=== PATIENT | female | born 1935 | race Caucasian/White ===

== ENCOUNTER 2021-07-30 09:37 | Day surgery (SDC) | payer OTHER ==
--- NOTE | 2021-07-25 09:52 | RAD REPORT ---
EXAM DESCRIPTION: Cat Pa And Lat (2 Views)07/25/2021 9:18 am CLINICAL HISTORY: Preop COMPARISON: 2016 FINDINGS: 13 millimeter opacity overlies the lateral right lung base. Left lung appears clear. The heart is mildly enlarged IMPRESSION: 13 millimeter opacity overlies lateral right lung base. This may represent a pulmonary n odule, infiltrate or confluence of ribs and vessels. Either follow-up chest series or CT chest recomm ended for further evaluation
[2021-07-25 10:16] LABS: Absolute Lymphocytes (CBC) 3.2 K/uL (0.7-4.9); Basophils % 0.6 % (0-1.3); Hematocrit 35.7 % (36.0-45.0); Lymphocytes % 28.2 % (15.3-44.8); MPV 9.7 fL (7.6-11.3); RBC Red Blood Cell Count 3.95 M/uL (3.86-4.86)
[2021-07-25 10:35] LABS: Potassium 4.4 mmol/L (3.5-5.1)
[2021-07-30] MEDS ORDERED: CIPROFLOXACIN 400mg IV 400 MG/200 ML BAG IV ONE (09:55)
[2021-07-30] MEDS ORDERED: Ringers Lactate 1,000 ML IV ONE (09:55)
[2021-07-30] MEDS ORDERED: FENTANYL CITR 100 MCG/2 ML ONE (11:42)
[2021-07-30] MEDS ORDERED: LIDOCAINE 2% MPF 5 ML VIAL ONE (11:42)
[2021-07-30] MEDS ORDERED: propofoL 200 MG/20 ML VIAL IV ONE ×2 (11:42→12:52)
[2021-07-30] MEDS ORDERED: BUPIVACAINE 0.5% Inj,MDV 50 mL VIAL ONE (12:34)
[2021-07-30] MEDS ORDERED: ONDANSETRON 4 MG/2 ML VIAL ONE (13:04)
[2021-07-30] MEDS ORDERED: NS 0.9% VIAL 10 ML ONE (13:08)
[2021-07-30] MEDS ORDERED: EPHEDRINE SULF 50 MG/ML VIAL ONE (13:08)
[2021-07-30] MEDS ORDERED: KETOROLAC 30 MG/ML INJ ONE (13:09)
[2021-07-30 17:38] VITALS: BP 119/55; TEMP 97.4; O2SAT 95
--- NOTE | 2021-07-30 19:48 | OP ---
Date of Procedure: 07/30/2021 Surgeon: Rigoberto Cabrera MD Traffic Officer: Kvng Hurt, surgical scrub tech. Preoperative Diagnosis: Right leg mass, rule out skin cancer. Postoperative Diagnosis: Right leg mass, rule out skin cancer. Procedure: Wide excision of right leg mass 5 x 2 cm with layered closure. Estimated Blood Loss: Minimal. Specimen: Right leg mass. 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 No evidence of ma lignancy. Anesthesia: General. Complications: None. Disposition: The patient tolerated the procedure well, in stable condition, and taken to Recovery in good general condition. Procedure In Detail: The patient was brought to the OR and placed in supine position. General anest hesia begun. The patient was prepped and draped in the usual sterile fashion. Marcaine 0.5% was inf iltrated locally. A 15-blade was used to make a 5 x 2 cm incision to excise this 1.5 cm raised mass in the right lower leg above the ankle anteriorly. The patient was symptomatic from this. It is cau sing her pain. Therefore, the entire mass was excised and labeled appropriately, sent for frozen sec tion, which revealed it to be actinic keratosis, solar elastosis with no evidence of malignancy. The refore, the wound was closed and this was done by creating flaps first with sharp and blunt dissectio n. Then, 2-0 chromic was used to approximate subcutaneous tissue and 4-0 nylon used to close skin. Sterile dressing was applied. Patient was awakened and taken to Recovery in good general condition. Discharge Note: The patient will go to Day Surgery and home when stable. Disposition: Home. Condition: Stable. Discharge Instructions: Resume home medications and diet. Activity as tolerated. No heavy lifting. Keep the dressing clean, dry, sponge bathe only. Follow up in my office in 1 week. Call for appoi ntment. /MODL Voice ID: [id number] Report ID: [id number]
== END 2021-07-30 14:50 | disposition home or self-care (01) ==
LOC: OR 09:37
PROVIDERS: ATTEND Surgery
PROC: 0JBN0ZZ Excision of Right Lower Leg Subcutaneous Tissue and Fascia, Open Approach (ICD-10-PCS; principal; 2021-07-30 11:15)
DX: L57.0 Actinic keratosis (principal); Z20.822 Contact with and (suspected) exposure to COVID-19
CPT/HCPCS: 85025; 80048; 36415; 88331; 88332; 88305; 71046; 11406; U0002; J2704 ×2; J3010; J7120; J2405; J0744

== ENCOUNTER 2021-08-10 09:54 | Inpatient (IN) | payer OTHER ==
[2021-08-10] MEDS ORDERED: NA CHLORIDE 0.9% 1,000 ML ONE ×2 (10:41→12:33)
[2021-08-10 11:20] LABS: Absolute Lymphocytes (CBC) 0.8 K/uL (0.7-4.9); Hematocrit 34.9 % (36.0-45.0); MPV 9.1 fL (7.6-11.3); RBC Red Blood Cell Count 3.85 M/uL (3.86-4.86)
[2021-08-10 11:28] LABS: Protime INR 1.01
[2021-08-10 11:46] LABS: Blood Morphology Comment NOT SEEN (NOT SEEN); Platelet Estimate ADEQ; Platelets, Giant PRESENT
[2021-08-10 11:52] LABS: ALT/SGPT 60 U/L (12-78); Albumin 3.2 g/dL (3.4-5.0); Alkaline Phosphatase 128 U/L (45-117); Amylase 105 U/L (25-115); BUN Blood Urea Nitrogen 36 mg/dL (7-18); Bicarbonate 22 mmol/L (21-32); Bilirubin Direct < 0.1 mg/dL (0-0.2); Bilirubin Total 0.3 mg/dL (0.2-1.0); C-Reactive Protein 6.06 mg/L (<3.00); Glucose Level 126 mg/dL (74-106); Lipase 190 U/L (73-393); Protein, Total 8.3 g/dL (6.4-8.2); Sodium Level 129 mmol/L (136-145); Troponin (Emerg Dept Use Only) < 0.02 ng/mL (0.0-0.045)
[2021-08-10 11:57] LABS: AST/SGOT 87 U/L (15-37); Potassium 4.7 mmol/L (3.5-5.1)
[2021-08-10 11:59] LABS: CKMB Creatine Kinase MB 50.6 ng/mL (1.0-3.6)
[2021-08-10 12:05] LABS: Creatine Phosphokinase 2919 U/L (26-192)
--- NOTE | 2021-08-10 12:18 | RAD REPORT ---
EXAM DESCRIPTION: CT - CTHCSPWOC - 08/10/2021 12:08 pm CLINICAL HISTORY: Trauma, head and neck injury. PAIN COMPARISON: Stone Protocol dated 08/05/2021; Abdomen Pelvis W Contrast dated 02/10/2020CT HEAD CSPI NE MPR WO CONTRAST dated 10/04/2011 TECHNIQUE: Axial 5 mm thick images of the head were obtained. Axial 2 mm thick images of the cervical spine were obtained with sagittal and coronal reconstruction images generated and reviewed. All CT scans are performed using dose optimization technique as appropriate and may include automated exposure control or mA/KV adjustment according to patient size. FINDINGS: CT HEAD WITHOUT CONTRAST: No acute hemorrhage, hydrocephalus or extra-axial collection is identified.No areas of brain edema or midline shift. Chronic small vessel ischemic changes. The paranasal sinuses and mastoids are clear.The calvarium is intact. CT CERVICAL SPINE WITHOUT CONTRAST: No fracture or subluxation.No prevertebral soft tissues swelling is identified. Multilevel cervical s pondylosis with evidence of neural foraminal narrowing including at C3-4 where it is advanced on the left. It is also advanced on the right side at C5-6 and C6-7. IMPRESSION: No acute intracranial or cervical spine findings.
--- NOTE | 2021-08-10 12:22 | RAD REPORT ---
EXAM DESCRIPTION: RAD - Chest Single View - 08/10/2021 12:16 pm CLINICAL HISTORY: CONGESTION COMPARISON: Chest Pa And Lat (2 Views) dated 07/25/2021; Chest Pa And Lat (2 Views) dated 03/05/2016; CHEST SINGLE VIEW dated 11/09/2013; CHEST PA AND LAT 2 VIEW dated 06/26/2012 FINDINGS: Lines: None. Lungs: No evidence of edema or pneumonia. Pleural: No significant pleural effusions or pneumothorax. Cardiac: Cardiomegaly. Bones: No acute fractures. Other: IMPRESSION: No acute cardiopulmonary disease.
[2021-08-10] MEDS ORDERED: WATER FOR INJ,STERILE 10 ML ONE (12:33)
[2021-08-10] MEDS ORDERED: CEFTRIAXONE 1000 MG/VIAL ONE (12:33)
--- NOTE | 2021-08-10 13:13 | EDPHYS ---
Physician Documentation [facility] Name: Larissa Wharton Age: 85 yrs Sex: Female : 1935 Arrival Date: 08/10/2021 Time: 09:54 Bed 15 Private MD: Jeremy Frost V ED Physician Jennifer Contreras HPI: 08/10 10:50 This 85 yrs old Female presents to ER via EMS with complaints of General Weakness. ma2 10:50 Onset: The symptoms/episode began/occurred gradually, 1 day(s) ago. Severity of ma2 symptoms: At their worst the symptoms were mild in the emergency department the symptoms are unchanged. The patient has experienced a previous episode. Historical: - Allergies: 10:00 Phenytoin; tw2 10:00 Cephalexin; tw2 10:00 Latex, Natural Rubber; tw2 - Immunization history:: Client reports receiving the 2nd dose of the Covid vaccine. - Social history:: Smoking status: Patient denies any tobacco usage or history of. Patient/guardian denies using alcohol, street drugs, The patient lives with family. - Family history:: not pertinent. ROS: 10:50 Constitutional: Negative for fever, chills, and weight loss. ma2 10:50 All other systems are negative. Exam: 10:50 Constitutional: This is a well developed, well nourished patient who is awake, alert, ma2 and in no acute distress. Head/Face: Normocephalic, atraumatic. Eyes: Pupils equal round and reactive to light, extra-ocular motions intact. Lids and lashes normal. Conjunctiva and sclera are non-icteric and not injected. Cornea within normal limits. Periorbital areas with no swelling, redness, or edema. ENT: Nares patent. No nasal discharge, no septal abnormalities noted. Tympanic membranes are normal and external auditory canals are clear. Oropharynx with no redness, swelling, or masses, exudates, or evidence of obstruction, uvula midline. Mucous membranes moist. Neck: Trachea midline, no thyromegaly or masses palpated, and no cervical lymphadenopathy. Supple, full range of motion without nuchal rigidity, or vertebral point tenderness. No Meningismus. Chest/axilla: Normal chest wall appearance and motion. Nontender with no deformity. No lesions are appreciated. Cardiovascular: Regular rate and rhythm with a normal S1 and S2. No gallops, murmurs, or rubs. Normal PMI, no JVD. No pulse deficits. Respiratory: Lungs have equal breath sounds bilaterally, clear to auscultation and percussion. No rales, rhonchi or wheezes noted. No increased work of breathing, no retractions or nasal flaring. Abdomen/GI: Soft, non-tender, with normal bowel sounds. No distension or tympany. No guarding or rebound. No evidence of tenderness throughout. Skin: Warm, dry with normal turgor. Normal color with no rashes, no lesions, and no evidence of cellulitis. MS/ Extremity: Pulses equal, no cyanosis. Neurovascular intact. Full, normal range of motion. Neuro: Awake and alert, GCS 15, oriented to person, place, time, and situation. Cranial nerves II-XII grossly intact. Motor strength 5/5 in all extremities. Sensory grossly intact. Cerebellar exam normal. Normal gait. Vital Signs: 09:52 BP 131 / 66; Pulse 77; Resp 18; Pulse Ox 99% on R/A; tw2 10:02 Temp 98.1; ss 11:35 BP 138 / 75; Pulse 71; Resp 15; Pulse Ox 97% on R/A; tw2 12:57 BP 143 / 85; Pulse 81; Resp 16; Temp 98.6(O); Pulse Ox 99% on R/A; tw2 15:41 BP 159 / 75; Pulse 82; Resp 18; Pulse Ox 100% on R/A; tw2 MDM: 10:50 Differential Diagnosis Generalized weakness, differential diagnosis includes pneumonia, ma2 diarrhea, dehydration, hypokalemia.. 12:26 Patient medically screened. ma2 13:11 Data reviewed: vital signs, nurses notes, EMS record. Counseling: I had a detailed ma2 discussion with the patient and/or guardian regarding: the historical points, exam findings, and any diagnostic results supporting the discharge/admit diagnosis, the presence of at least one elevated blood pressure reading (>120/80) during this emergency department visit, the need for outpatient follow up. Counseling: I had a detailed discussion with the patient and/or guardian regarding: the need for further work-up and treatment in the hospital. Response to treatment: the patient's symptoms have markedly improved after treatment. 12/24 10:25 Order name: Amylase, Serum; Complete Time: 12:12 [facility] 08/10 10:25 Order name: Basic Metabolic Panel; Complete Time: 12:12 [facility] 08/10 10:25 Order name: Blood Culture Adult (2) [facility] 08/10 10:25 Order name: C-Reactive Protein; Complete Time: 12:12 [facility] 08/10 10:25 Order name: CBC with Diff; Complete Time: 12:12 [facility] 08/10 10:25 Order name: CPK; Complete Time: 12:12 [facility] 08/10 10:25 Order name: Ckmb; Complete Time: 12:12 [facility] 08/10 10:25 Order name: LFT's; Complete Time: 12:12 [facility] 08/10 10:25 Order name: Lactate; Complete Time: 12:12 [facility] 08/10 10:25 Order name: Lipase; Complete Time: 12:12 [facility] 08/10 10:25 Order name: Procalcitonin; Complete Time: 12:12 [facility] 08/10 10:25 Order name: Protime (+inr); Complete Time: 11:41 [facility] 08/10 10:25 Order name: Ptt, Activated; Complete Time: 11:41 [facility] 08/10 10:25 Order name: Troponin (emerg Dept Use Only); Complete Time: 12:12 [facility] 08/10 10:25 Order name: Urine Microscopic Only [facility] 08/10 10:25 Order name: CT Head C Spine; Complete Time: 12:26 [facility] 08/10 11:46 Order name: Manual Differential; Complete Time: 12:12 [facility] 08/10 12:09 Order name: Chest Single View XRAY; Complete Time: 12:26 [facility] 08/10 14:05 Order name: SARS-COV-2 RT PCR (Document "Date of Onset" if Symptomatic) eb 08/10 14:05 Order name: SARS-COV-2 RT PCR [facility] 08/10 15:10 Order name: Fecal Leukocyte Stain [facility] 08/10 15:10 Order name: Ova and Parasites [facility] 08/10 15:10 Order name: Stool Culture [facility] 08/10 15:11 Order name: Lactoferrin, Stool [facility] 08/10 15:11 Order name: C.difficile GDH Ag [facility] 08/10 10:25 Order name: Cardiac monitoring; Complete Time: 11: dc2 08/10 10:25 Order name: EKG - Nurse/Tech; Complete Time: dc2 08/10 10:25 Order name: IV Saline Lock - Large Bore; Complete Time: dc2 08/10 10:25 Order name: Labs collected and sent; Complete Time: : [facility] 08/10 10:25 Order name: O2 Per Protocol; Complete Time: [facility] 08/10 10:25 Order name: O2 Sat Monitoring; Complete Time: : ma2 Administered Medications: 11:34 Drug: NS 0.9% 1000 ml Route: IV; Rate: 1 bolus; Site: left antecubital; tw2 12:48 Drug: NS 0.9% 1000 ml Route: IV; Rate: 125 ml/hr; Site: left antecubital; tw2 12:48 Drug: Rocephin (cefTRIAXone) 1 grams Route: IV; Rate: calculated rate; Site: left tw2 antecubital; Disposition Summary: 08/10/21 13:12 Hospitalization Ordered Hospitalization Status: Observation dc2 Provider: Richie Ag [facility] Location: Telemetry/MedSurg (observation) ma2 Condition: Stable ma Problem: new [facility] Symptoms: are unchanged [facility] Bed/Room Type: Standard [facility] Room Assignment: [facility](08/10/21 15:26) eb Diagnosis - Dehydration ma2 - Other acute kidney failure [facility] Forms: - Medication Reconciliation Form dc2 - SBAR form dc2 Signatures: Dispatcher [employer] EDWY Magalys Rodriguez RN RN Loreta Perez RN RN 2 Jennifer Contreras MD MD [facility] Sia Moreland Corrections: (The following items were deleted from the chart) 11: 10:25 Accucheck ordered. [facility] tw2 12:07 10:26 Chest For PE Angio+CT.RAD.BRZ ordered. EDWY EDMS 15:26 13:12 [facility] eb
--- NOTE | 2021-08-10 13:13 | ER ---
Nurse's Notes [facility] Name: Larissa Wharton Age: 85 yrs Sex: Female : 1935 Arrival Date: 08/10/2021 Time: 09:54 Bed 15 Private MD: Jeremy Frost V Diagnosis: Dehydration;Other acute kidney failure Presentation: 08/10 10:02 Chief complaint: Patient states: Generalized weakness and episode of diarrhea this ss morning. Pt reports feeling better after given 100 mL NS en route to ED. Coronavirus screen: Client denies travel out of the [place] in the last 14 days. Ebola Screen: Patient denies exposure to infectious person. Patient denies travel to an Ebola-affected area in the 21 days before illness onset. Initial Sepsis Screen: Does the patient meet any 2 criteria? No. Patient's initial sepsis screen is negative. Does the patient have a suspected source of infection? No. Patient's initial sepsis screen is negative. Risk Assessment: Do you want to hurt yourself or someone else? Patient reports no desire to harm self or others. Onset of symptoms was August 10, 2021. Care prior to arrival: IV initiated. 22 GA, in the right antecubital area, Glucose check: 181. 10:02 Method Of Arrival: EMS: [facility] ss 10:02 Acuity: SHELDON 3 ss Historical: - Allergies: 10:00 Phenytoin; tw2 10:00 Cephalexin; tw2 10:00 Latex, Natural Rubber; tw2 - Immunization history:: Client reports receiving the 2nd dose of the Covid vaccine. - Social history:: Smoking status: Patient denies any tobacco usage or history of. Patient/guardian denies using alcohol, street drugs, The patient lives with family. - Family history:: not pertinent. Screenin:58 Abuse screen: Denies threats or abuse. Nutritional screening: No deficits noted. tw2 Tuberculosis screening: No symptoms or risk factors identified. Fall Risk Secondary diagnosis (15 points) impaired mobility. Assessment: 11:34 Reassessment: pt appears to be sleeping at this time. NAD. daughter at bedside at this tw2 time. pt daughter asking to let pt rest at this time. iv fluids started without pt awaking. 16:18 Reassessment: pt cleaned of soiled brief at this time. tw2 Vital Signs: 09:52 BP 131 / 66; Pulse 77; Resp 18; Pulse Ox 99% on R/A; tw2 10:02 Temp 98.1; ss 11:35 BP 138 / 75; Pulse 71; Resp 15; Pulse Ox 97% on R/A; tw2 12:57 BP 143 / 85; Pulse 81; Resp 16; Temp 98.6(O); Pulse Ox 99% on R/A; tw2 15:41 BP 159 / 75; Pulse 82; Resp 18; Pulse Ox 100% on R/A; tw2 ED Course: 09:54 Patient arrived in ED. ds1 09:54 Jeremy Frost MD is Private Physician. ds1 09:58 Loreta Perez, TITO is Primary Nurse. tw2 09:59 Arm band placed on. tw2 09:59 Bed in low position. Call light in reach. Side rails up X2. Adult w/ patient. Pulse ox tw2 on. NIBP on. 10:05 Triage completed. ss 10:07 Jennifer Contreras MD is Attending Physician. ma2 11:03 First set of blood cultures drawn by me. Inserted saline lock: 20 gauge in left 3 antecubital area, using aseptic technique. Blood collected. 11:07 Initial lab(s) drawn, by me, sent to lab. Second set of blood cultures drawn by me. 3 11:20 EKG done, by ED staff, reviewed by Jennifer Contreras MD. 3 12:08 CT Head C Spine In Process Unspecified. EDMS 12:14 Chest Single View XRAY In Process Unspecified. EDMS 13:12 Richie Ag MD is Hospitalizing Provider. ma2 15:40 Patient admitted, IV remains in place. 22 g RIGHT AC was removed accidently when pt was tw2 turning to be cleaned. 20 G LEFT ac remains in place for admission. 15:44 No provider procedures requiring assistance completed. tw2 Administered Medications: 11:34 Drug: NS 0.9% 1000 ml Route: IV; Rate: 1 bolus; Site: left antecubital; tw2 12:48 Drug: NS 0.9% 1000 ml Route: IV; Rate: 125 ml/hr; Site: left antecubital; tw2 12:48 Drug: Rocephin (cefTRIAXone) 1 grams Route: IV; Rate: calculated rate; Site: left tw2 antecubital; Outcome: 13:12 Decision to Hospitalize by Provider. ma2 15:47 Admitted to Med/surg accompanied by tech, via stretcher, room 207, with chart, Report tw2 called to TITO Dias 15:47 Condition: stable 15:47 Instructed on the need for admit. 16:47 Patient left the ED. tw2 Signatures: Dispatcher [employer] EDRI Marry Olivares ds1 Magalys Rodriguez RN RN Loreta Perez RN RN tw2 Delaney Garcia 3 Jennifer Contreras MD MD me2
--- NOTE | 2021-08-10 15:16 | P.HP ---
Certification for Inpatient Patient admitted to: Observation With expected LOS: <2 Midnights Practitioner: I am a practitioner with admitting privileges, knowledge of patient current condition, hospital course, and medical plan of care. Services: Services provided to patient in accordance with Admission requirements found in Title 42 Section 412.3 of the Code of Federal Regulations Patient History Date of Service: 08/10/21 Reason for admission: Generalized weakness, diarrhea, AKA History of Present Illness: 85-year-old F PMH: HTN, bladder urgency, and some syncopal/weakness episodes on methyldopa Patient was brought into the ED after found to be significantly weak, slurred speech, soiled herself last night/this morning. She does not recall all the events, but she awoke in her recliner, feeling very stiff and unable to move her extremities and neck. She needed significant assistance to get out of the chair. Her daughter found her with loose stool in her clothes as well. Daughter states patient has been having worsening of generalized weakness since she had a right leg lesion excision on 07/30. Your blood patient initially had some constipation, and then has been dealing with loose stools since the procedure. They deny any significant amount of watery diarrhea, just loose and difficult to control at times, maybe once/twice a day. She has maintained the same amount of food intake, but the daughter has been concerned of adequate p.o. intake. She was also recently started on spironolactone approximately 1 week ago for lower extremity edema. Since starting spironolactone, patient reports increased urinary frequency. Denies dysuria, denies foul-smelling urine, denies any change in color/transparency of her urine. Denies abdominal pain, no nausea/vomiting, no fever/chills at home. She is otherwise not missed any of her medications. In the ED, she was felt to be dehydrated, noted to have a leukocytosis, YULI, negative CT brain and chest x-ray. Allergies latex [Latex] Allergy (Intermediate, Verified 11/10/13 01:26) Hives/Rash cephalexin [From Keflex] Adverse Reaction (Intermediate, Verified 07/25/21 10:52) AGITATION phenytoin [From Dilantin] Adverse Reaction (Intermediate, Verified 07/25/21 10:52) AGITATION Home Medications: Aspirin Chewable [Aspirin Chewable*] 1 tab PO DAILY 11/10/13 Biotin 1 cap PO DAILY 11/10/13 Calcium Carb/Vitamin D3/Vit K1 [Calcium + D Soft Chewable Tab] 1 tab PO DAILY 11/10/13 Sandstone-3 Acid Ethyl Esters [Lovaza] 1 cap PO DAILY 11/10/13 Oxybutynin Chloride [Ditropan*] 1 tab PO BID 11/10/13 PHENobarbitaL [Phenobarbital*] 1 tab PO DAILY 11/10/13 Vit C/E/Zn/Coppr/Lutein/Zeaxan [Preservision Areds 2 Softgel] 2 cap PO BID 11/10/13 Methyldopa [Aldomet*] 250 mg PO BID #60 tab 11/11/13 Amlodipine [Norvasc] 5 mg PO BEDTIME 07/25/21 Azilsartan Medoxomil [Edarbi] 80 mg PO DAILY 07/25/21 Spironolactone [Aldactone*] 25 mg PO DAILY 07/25/21 - Past Medical/Surgical History Diabetic: No -: HTN -: Bladder urgency -: Right knee SX -: Latia -: Breast Reduction -: foot sx -: wrist sx - Family History Family History: Reviewed- Non-Contributory - Social History Smoking Status: Never smoker Alcohol use: No CD- Drugs: No Caffeine use: Yes Place of Residence: Home Review of Systems 10-point ROS is otherwise unremarkable Physical Examination - Physical Exam General: Alert, Oriented x3, Other (Appears fatigued) HEENT: Sclerae nonicteric Neck: No LAD Respiratory: Clear to auscultation bilaterally, Normal air movement Cardiovascular: Regular rate/rhythm, Edema (Trace RLE edema), Systolic murmur Gastrointestinal: Soft and benign, Non-distended, No tenderness Musculoskeletal: No swelling, No contractures Integumentary: Erythema (Minimal RLE excision site, no added warmth, no increased tenderness) Neurological: Normal speech, Normal strength at 5/5 x4 extr, Cranial nerves 3-12 intact, Normal affect - Studies Laboratory Data (last 24 hrs) 08/10/21 11:07: PT 11.6, INR 1.01, APTT 42.4 H 08/10/21 11:07: WBC 15.30 H, Hgb 11.4 L, Hct 34.9 L, Plt Count 296 08/10/21 11:07: Sodium 129 L, Potassium 4.7, BUN 36 H, Creatinine 1.83 H, Glucose 126 H, Total Bilirubin 0.3, AST 87 H, ALT 60, Alkaline Phosphatase 128 H, Amylase 105, Lipase 190 Assessment and Plan - Advance Directives Does patient have a Living Will: Yes Does patient have a Durable POA for Healthcare: Yes Physician Review Additional Text: Problem YULI, no history of CKD Generalized weakness Diarrhea Elevated CPK Leukocytosis Patient appears dry on exam, received IV fluids in the ED, continue IV fluids, diet as tolerated Patient does not appear septic, leukocytosis likely reactive versus diarrhea Has not received any consistent antibiotics recently, did receive 1 dose of ciprofloxacin 2 weeks ago for her procedure, and since then her bowel habits bernard ve been different Low suspicion for c diff - not having multiple / watery diarrhea Stool studies ordered Blood cultures obtained Patient reports feeling better, more alert and more strength after receiving IV fluids Abdomen soft and nontender, if abdominal exam changes or patient clinically worsens will consider CT scan Procalcitonin negative YULI likely prerenal from dehydration. Decreased p.o. water intake, loose stool, and recent initiation of diuretic usage Hold home spironolactone PT consulted VTE: lovenox Code: DNR Dispo: Anticipate DC home in 1-2 days Time Spent Managing Pts Care (In Minutes): 60
[2021-08-10] MEDS ORDERED: ACETAMINOPHEN 500 MG TAB PO PRN (15:52)
[2021-08-10 17:20] VITALS: BMI 31.0
[2021-08-10] MEDS: NA CHLORIDE 0.9% 1,000 ML IV SCH (17:56)
[2021-08-10 21:27] LABS: Thyroid Stimulating Hormone 2.17 uIU/mL (0.360-3.740)
[2021-08-11] MEDS: NA CHLORIDE 0.9% 1,000 ML IV SCH ×3 (03:19→22:00)
[2021-08-11 05:56] LABS: Absolute Lymphocytes (CBC) 1.8 K/uL (0.7-4.9); Hematocrit 32.5 % (36.0-45.0); MPV 9.3 fL (7.6-11.3)
[2021-08-11 06:28] LABS: Albumin 2.6 g/dL (3.4-5.0); Bilirubin Total 0.4 mg/dL (0.2-1.0); Magnesium 2.1 mg/dL (1.8-2.4); Protein, Total 6.8 g/dL (6.4-8.2)
[2021-08-11] MEDS ORDERED: METHYLDOPA 250 MG TABLET PO SCH (09:00)
[2021-08-11] MEDS ORDERED: PHENOBARBITAL 32.4 MG TABLET PO SCH (09:00)
[2021-08-11] MEDS: AZILSARTAN MEDOXOMIL 80 MG PO SCH ×2 (09:00→21:00)
[2021-08-11] MEDS: OXYBUTYNIN CHLORIDE 5 MG TAB PO SCH ×2 (09:16→21:45)
[2021-08-11] MEDS: ASPIRIN 81 MG CHEWABLE TABLET PO SCH (09:17)
[2021-08-11] MEDS: ENOXAPARIN 30 MG/0.3 ML SQ SCH (09:22)
--- NOTE | 2021-08-11 10:56 | P.PN ---
Subjective Date of Service: 08/11/21 Chief Complaint: Diarrhea Subjective: Improving Patient is 85 years of age admitted with some weakness he currently has diarrhea very alert responsive had a minor surgery recently patient was also started with spironolactone about a week ago Review of Systems General: Weakness Gastrointestinal: Diarrhea Physical Examination - Vital Signs Temperature: 97.9 F Blood Pressure: 147/70 Pulse: 84 Respirations: 18 Pulse Ox (%): 95 - Physical Exam General: Alert, Oriented x3 Neck: Supple Respiratory: Clear to auscultation bilaterally Cardiovascular: No edema, Normal pulses - Studies Laboratory Data (last 24 hrs) 08/10/21 11:07: PT 11.6, INR 1.01, APTT 42.4 H 08/10/21 11:07: WBC 15.30 H, Hgb 11.4 L, Hct 34.9 L, Plt Count 296 08/10/21 11:07: Sodium 129 L, Potassium 4.7, BUN 36 H, Creatinine 1.83 H, Glucose 126 H, Total Bilirubin 0.3, AST 87 H, ALT 60, Alkaline Phosphatase 128 H, Amylase 105, Lipase 190 Assessment & Plan - Problems (Diagnosis) (1) Diarrhea Current Visit: Yes Status: Acute Plan: Patient is 85 years of age admitted with altered mental status and diarrhea CPK elevated renal insufficiency per natremia have all resolved with IV fluids white count is minimally elevated vital signs oxygenation satisfactory cultures are pending element of rhabdomyolysis continue to monitor possible discharge tomorrow also has some lower extremity edema and was started on spironolactone having problems since then Qualifiers: Diarrhea type: unspecified type Qualified Code(s): R19.7 - Diarrhea, unspecified
[2021-08-11] MEDS: ALDOMET PO SCH (21:00)
[2021-08-11] MEDS: PHENOBARBITAL 32.4 MG TABLET PO SCH (21:45)
[2021-08-11] MEDS: AMLODIPINE 5 MG TAB PO SCH (21:51)
[2021-08-12] MEDS: NA CHLORIDE 0.9% 1,000 ML IV SCH (06:33)
[2021-08-12] MEDS: ALDOMET PO SCH ×2 (09:00→21:01)
[2021-08-12] MEDS: AZILSARTAN MEDOXOMIL 80 MG PO SCH (09:00)
[2021-08-12] MEDS: OXYBUTYNIN CHLORIDE 5 MG TAB PO SCH ×2 (09:22→21:01)
[2021-08-12] MEDS: ASPIRIN 81 MG CHEWABLE TABLET PO SCH (09:22)
[2021-08-12] MEDS: ENOXAPARIN 30 MG/0.3 ML SQ SCH (09:22)
--- NOTE | 2021-08-12 09:44 | P.PN ---
Subjective Date of Service: 08/12/21 Chief Complaint: Diarrhea Patient is diarrhea is improving she says feels weak apparently dates of problems when her medications were changed Review of Systems Unremarkable General: Weakness Physical Examination - Vital Signs Temperature: 97.2 F Blood Pressure: 127/59 Pulse: 67 Respirations: 16 Pulse Ox (%): 97 - Physical Exam General: Alert, In no apparent distress, Oriented x3 Respiratory: Clear to auscultation bilaterally Cardiovascular: No edema, Regular rate/rhythm, Normal S1 S2 Gastrointestinal: Normal bowel sounds, Soft and benign - Studies Microbiology Data (last 24 hrs): 08/10/21 04:12 Stool Fecal Leukocyte Stain - Final Assessment & Plan - Problems (Diagnosis) (1) Diarrhea Current Visit: Yes Status: Acute Plan: Patient admitted with diarrhea states that her problem was due to the change to new medication including spironolactone which have both been stopped side effect of Edarbi is diarrhea white count is minimally elevated CPK is declining contin ue with oral hydration physical therapy Qualifiers: Diarrhea type: unspecified type Qualified Code(s): R19.7 - Diarrhea, unspecified Discharge Plan: Home Plan to discharge in: 24 Hours
[2021-08-12] MEDS: cloNIDine HCL 0.1 MG TAB PO PRN (16:57)
[2021-08-12] MEDS: ONDANSETRON 4 MG/2 ML VIAL IV PRN (20:58)
[2021-08-12] MEDS: AMLODIPINE 5 MG TAB PO SCH (21:00)
[2021-08-12] MEDS: PHENOBARBITAL 32.4 MG TABLET PO SCH (21:01)
[2021-08-13] MEDS: cloNIDine HCL 0.1 MG TAB PO PRN (04:32)
[2021-08-13 06:49] LABS: Absolute Lymphocytes (CBC) 2.6 K/uL (0.7-4.9); Hematocrit 27.6 % (36.0-45.0); Lymphocytes % 22.6 % (15.3-44.8); MPV 9.4 fL (7.6-11.3); RBC Red Blood Cell Count 3.06 M/uL (3.86-4.86)
[2021-08-13 06:50] LABS: BUN Blood Urea Nitrogen 12 mg/dL (7-18); Bicarbonate 22 mmol/L (21-32); Glucose Level 95 mg/dL (74-106); Sodium Level 130 mmol/L (136-145)
[2021-08-13] MEDS: ASPIRIN 81 MG CHEWABLE TABLET PO SCH (09:12)
[2021-08-13] MEDS: OXYBUTYNIN CHLORIDE 5 MG TAB PO SCH ×2 (09:12→22:04)
[2021-08-13] MEDS: ENOXAPARIN 30 MG/0.3 ML SQ SCH (09:12)
[2021-08-13] MEDS: ALDOMET PO SCH ×2 (09:13→22:04)
--- NOTE | 2021-08-13 10:23 | RAD REPORT ---
EXAM DESCRIPTION: MRI - Brain Wo Cont - 08/13/2021 10:03 am CLINICAL HISTORY: possible seizure, altered mental status COMPARISON: MRI BRAIN WITH CONTRAST dated 11/10/2013 TECHNIQUE: Sagittal T1-weighted images were obtained along with axial PD, heavily T2-weighted and T2 -FLAIR images. Axial DWI and ADC mapping sequences were also obtained along with coronal heavily T2-w eighted images. FINDINGS: No intracranial hemorrhage, mass or acute infarction. There is no edema or shift of midlin e structures. No extra-axial fluid collections. Alvarez-matter/white matter junction is preserved. Signa l voids are seen as a normal finding in the major intracranial vessels. Atrophy changes are minimal for age. Cerebral white matter hyperintense T2/IR signal is identified ty pical for mild to moderate severity chronic ischemic change. Ventricles are in proportion to any volu me loss. No significant atrophy of the cerebellum. Mastoid air cells and paranasal sinuses are clear. IMPRESSION: No acute abnormality identifiable. Minimal for age atrophy with mild to moderate cerebral chronic ischemic change. Ventricles are in pr oportion to volume loss.
--- NOTE | 2021-08-13 11:17 | P.PN ---
Subjective Date of Service: 08/13/21 Chief Complaint: Diarrhea Subjective: Improving DHIRAJ HAS A VERY DIFFICULT BP TO CONTROL. SHE COMES IN WITH ALTERED MENTAL STATUS AFTER HAVING DIARRHEA FOR A DAY, COULD NOT GET OUT OF BED. SHE WAS BROUGHT TO ER. I WAS OUT OF TOWN UNTIL TODAY. THEY FOUND HER TO BE DEHYDRATED WITH MILD HYPONATREMIA AND EARLY RHABDOMYOLYSIS. SHE JUST STARTED HER SPIRONOLACTONE. SHE TENDS TO THINK THAT AFTER TWO WEEKS OF IT, THAT IS WHAT MADE HER SICK BUT ACTUALLY IF YOU ARE ON DIURETIC AND GET SICK WITH FLUID LOSS THEN YOUR BLOOD WILL SHOW DEHYDRATION. IN ANY CASE WE WILL TRY TO DO WITHOUT SPIRONOLACTONE. SHE WAS CONFUSED AND DISORIENTED AND SO SHE MAY HAVE HAD SE IZURE ALSO. SHE HAD INCONTINENCE OF URINE WHEN DAUGHTER FOUND HER ON THE RECLINER. SHE NEVER FELL. Review of Systems 10-point ROS is otherwise unremarkable General: Weakness, Malaise Physical Examination - Vital Signs Temperature: 96.2 F Blood Pressure: 158/73 Pulse: 60 Respirations: 18 Pulse Ox (%): 98 - Physical Exam General: Alert, In no apparent distress, Oriented x3 HEENT: Atraumatic, PERRLA, EOMI Neck: Supple, JVD not distended Respiratory: Clear to auscultation bilaterally, Normal air movement Cardiovascular: Regular rate/rhythm, Normal S1 S2 Gastrointestinal: Normal bowel sounds, No tenderness Musculoskeletal: No tenderness Integumentary: No rashes Neurological: Normal speech, Normal tone, Normal affect Lymphatics: No axilla or inguinal lymphadenopathy - Studies Medications List Reviewed: Yes Assessment And Plan - Current Problems (Diagnosis) (1) Altered mental status Current Visit: Yes Status: Acute Plan: IT CAN BE FROM DEHYDRATION. 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 MRI BRAIN IS NEGATIVE THIS AM. DR. HAWLEY IS OUT OF TOWN. EEG MAY HELP. (2) Seizure disorder Current Visit: Yes Status: Chronic Plan: STABLE AND NEVER HAD RECURRENCE FOR LONG TIME. (3) Diarrhea Current Visit: Yes Status: Acute Plan: C DIFF IS PENDING. Qualifiers: Diarrhea type: unspecified type Qualified Code(s): R19.7 - Diarrhea, unspecified (4) Hyponatremia Current Visit: No Status: Chronic (5) HTN (hypertension) Current Visit: Yes Status: Chronic Plan: HPI WILL ADD HYDRALAZINE SHE DOES NOT TOLERATE MED WELL. Physician Review Additional Text: Problem YULI, no history of CKD Generalized weakness Diarrhea Elevated CPK Leukocytosis Patient appears dry on exam, received IV fluids in the ED, continue IV fluids, diet as tolerated Patient does not appear septic, leukocytosis likely reactive versus diarrhea Has not received any consistent antibiotics recently, did receive 1 dose of ciprofloxacin 2 weeks ago for her procedure, and since then her bowel habits have been different Low suspicion for c diff - not having multiple / watery diarrhea Stool studies ordered Blood cultures obtained Patient reports feeling better, more alert and more strength after receiving IV fluids Abdomen soft and nontender, if abdominal exam changes or patient clinically worsens will consider CT scan Procalcitonin negative YULI likely prerenal from dehydration. Decreased p.o. water intake, loose stool, and recent initiation of diuretic usage Hold home spironolactone PT consulted VTE: lovenox Code: DNR Dispo: Anticipate DC home in 1-2 days
[2021-08-13] MEDS: BACI/NEOMYCIN/POLY OINT 15GM TOP SCH ×2 (15:15→21:00)
--- NOTE | 2021-08-13 17:38 | CON ---
Date of Consultation: 08/13/2021 Reason For Consultation: The patient has a wound on her right leg. 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 She was admitted over the weekend with change in mental status, ruled out for stroke as well as hyponatremia and diarrhea. She has appointment with me in the office for evaluation of the wound to see whether the sutures could be removed or not. I was contacted today for evaluation of the wound as she is an inpatient at this time. The patient was not in her room when I went to see her, she went for the MRI actually. Therefore, the nurses sent me a picture of the wound and I looked at it and it appears to be healing well. There was minimal reactive erythema, but no surrounding purulence, no warmth as per the nurses. Sutures in place with some minimal crust around the edges and approximation of the wound itself. No sign of infection. Assessment: An 85-year-old female with multiple medical problems with a wound in the lower legs. Recommendation by the nursing staff to clean the wound with peroxide, and remove every other suture and apply neosporin, gauze and Kerlix to the wound daily and follow up in my office in 1 week. GERALDO/NORA Voice ID: [id number] Report ID: [id number] ARASELI
[2021-08-13] MEDS: ONDANSETRON 4 MG/2 ML VIAL IV PRN (22:03)
[2021-08-13] MEDS: HYDRALAZINE HCL 25 MG TABLET PO SCH (22:03)
[2021-08-13] MEDS: AMLODIPINE 5 MG TAB PO SCH (22:04)
[2021-08-13] MEDS: PHENOBARBITAL 32.4 MG TABLET PO SCH (22:10)
[2021-08-14] MEDS: ASPIRIN 81 MG CHEWABLE TABLET PO SCH (08:34)
[2021-08-14] MEDS: HYDRALAZINE HCL 25 MG TABLET PO SCH ×2 (08:34→19:49)
[2021-08-14] MEDS: OXYBUTYNIN CHLORIDE 5 MG TAB PO SCH ×2 (08:34→19:50)
[2021-08-14] MEDS: ENOXAPARIN 30 MG/0.3 ML SQ SCH (08:34)
[2021-08-14] MEDS: ALDOMET PO SCH ×2 (08:37→19:51)
[2021-08-14] MEDS: BACI/NEOMYCIN/POLY OINT 15GM TOP SCH ×2 (08:37→19:52)
[2021-08-14] MEDS: EDARBYCLOR PO SCH (10:00)
[2021-08-14 10:15] VITALS: O2SAT 97
--- NOTE | 2021-08-14 12:52 | P.PN ---
Subjective Date of Service: 08/14/21 Chief Complaint: Diarrhea Subjective: Improving DHIRAJ HAS A VERY DIFFICULT BP TO CONTROL. SHE COMES IN WITH ALTERED MENTAL STATUS AFTER HAVING DIARRHEA FOR A DAY, COULD NOT GET OUT OF BED. SHE WAS BROUGHT TO ER. I WAS OUT OF TOWN UNTIL TODAY. THEY FOUND HER TO BE DEHYDRATED WITH MILD HYPONATREMIA AND EARLY RHABDOMYOLYSIS. SHE JUST STARTED HER SPIRONOLACTONE. SHE TENDS TO THINK THAT AFTER TWO WEEKS OF IT, THAT IS WHAT MADE HER SICK BUT ACTUALLY IF YOU ARE ON DIURETIC AND GET SICK WITH FLUID LOSS THEN YOUR BLOOD WILL SHOW DEHYDRATION. IN ANY CASE WE WILL TRY TO DO WITHOUT SPIRONOLACTONE. SHE WAS CONFUSED AND DISORIENTED AND SO SHE MAY HAVE HAD SE IZURE ALSO. SHE HAD INCONTINENCE OF URINE WHEN DAUGHTER FOUND HER ON THE RECLINER. SHE NEVER FELL. SHE FEELS GREAT. SHE LOOKS GOOD. BP MEDS CHANGED. SO FAR SHE HAS NO SE. Review of Systems 10-point ROS is otherwise unremarkable Physical Examination - Vital Signs Temperature: 97.1 F Blood Pressure: 145/66 Pulse: 78 Respirations: 18 Pulse Ox (%): 98 - Physical Exam General: In no apparent distress, Oriented x3 HEENT: Atraumatic, PERRLA, EOMI Neck: Supple, JVD not distended Respiratory: Clear to auscultation bilaterally, Normal air movement Cardiovascular: Regular rate/rhythm, Normal S1 S2 Gastrointestinal: Normal bowel sounds, No tenderness Musculoskeletal: No tenderness Integumentary: No rashes Neurological: Normal speech, Normal tone, Normal affect Lymphatics: No axilla or inguinal lymphadenopathy - Studies Medications List Reviewed: Yes Assessment And Plan - Current Problems (Diagnosis) (1) Altered mental status Current Visit: Yes Status: Acute Plan: IT CAN BE FROM DEHYDRATION. 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 MRI BRAIN IS NEGATIVE THIS AM. DR. HAWLEY IS OUT OF TOWN. EEG MAY HELP. BACK TO NORMAL. (2) Seizure disorder Current Visit: Yes Status: Chronic Plan: STABLE AND NEVER HAD RECURRENCE FOR LONG TIME. FARIBA AFTER DR. HAWLEY SEES HER. [place] OF [place] FOR NOW. THERE ARE NO NEUROLOGIST AT THIS [facility] EXCEPT FOR HIM. (3) Diarrhea Current Visit: Yes Status: Acute Plan: C DIFF IS PENDING. Qualifiers: Diarrhea type: unspecified type Qualified Code(s): R19.7 - Diarrhea, unspecified (4) Hyponatremia Current Visit: No Status: Chronic Plan: BACK TO HER BASELINE. (5) HTN (hypertension) Current Visit: Yes Status: Chronic Plan: HPI WILL ADD HYDRALAZINE SHE DOES NOT TOLERATE MED WELL. REDUCE EDARBI TO ONE DAILY. STOPPED SPIRONOLACTONE. REDUCE AMLODIPINE SHE GETS EDEMA FROM IT. Physician Review Additional Text: Problem YULI, no history of CKD Generalized weakness Diarrhea Elevated CPK Leukocytosis Patient appears dry on exam, received IV fluids in the ED, continue IV fluids, diet as tolerated Patient does not appear septic, leukocytosis likely reactive versus diarrhea Has not received any consistent antibiotics recently, did receive 1 dose of ciprofloxacin 2 weeks ago for her procedure, and since then her bowel habits have been different Low suspicion for c diff - not having multiple / watery diarrhea Stool studies ordered Blood cultures obtained Patient reports feeling better, more alert and more strength after receiving IV fluids Abdomen soft and nontender, if abdominal exam changes or patient clinically worsens will consider CT scan Procalcitonin negative YULI likely prerenal from dehydration. Decreased p.o. water intake, loose stool, and recent initiation of diuretic usage Hold home spironolactone PT consulted VTE: lovenox Code: DNR Dispo: Anticipate DC home in 1-2 days
[2021-08-14] MEDS: PHENOBARBITAL 32.4 MG TABLET PO SCH (19:50)
[2021-08-14] MEDS: ONDANSETRON 4 MG/2 ML VIAL IV PRN (20:44)
[2021-08-14] MEDS ORDERED: AMLODIPINE 2.5 MG TAB PO SCH (21:00)
[2021-08-14] MEDS: cloNIDine HCL 0.1 MG TAB PO PRN (23:30)
[2021-08-15] MEDS: ALDOMET PO SCH (08:16)
[2021-08-15] MEDS: EDARBYCLOR PO SCH (08:16)
[2021-08-15] MEDS: ASPIRIN 81 MG CHEWABLE TABLET PO SCH (08:17)
[2021-08-15] MEDS: ENOXAPARIN 30 MG/0.3 ML SQ SCH (08:17)
[2021-08-15] MEDS: OXYBUTYNIN CHLORIDE 5 MG TAB PO SCH (08:17)
[2021-08-15] MEDS: BACI/NEOMYCIN/POLY OINT 15GM TOP SCH (08:17)
[2021-08-15] MEDS: HYDRALAZINE HCL 25 MG TABLET PO SCH (08:17)
[2021-08-15 09:59] VITALS: BP 130/61; TEMP 97.7
--- NOTE | 2021-08-16 08:12 | EEG ---
CHART: [id number] TEST ID#: [id number] DATE OF STUDY: 08/14/2021 THE EEG WAS RECORDED [place] IN THE PATIENT'S ROOM ON A 17 CHANNEL MACHINE. ELECTRODES WERE APPLIED IN THE USUAL MANNER USING THE INTERNATIONAL 10-20 SYSTEM. THE WAKING BACKGROUND RHYTHM IN THIS RECORD CONSISTS OF WELL DEVELOPED AND WELL ORGANIZED WAVES OF 8.5 HZ., MAXIMAL IN THE POSTERIOR HEAD REGIONS WHICH ATTENUATE NORMALLY WITH EYE OPENING. LOW-VOLTAGE 18-22 HZ ACTIVITY IS EXPRESSED IN THE FRONTAL REGIONS. THERE ARE NO FOCAL OR LATERALIZING FEATURES. NO EPILEPTIFORM ACTIVITY APPEARS. SLEEP OCCURRED NATURALLY. IN ADDITION NORMAL SLEEP PATTERNS ARE PRESENT. HYPERVENTILATION WAS NOT PERFORMED. PHOTIC STIMULATION PRODUCED FAIR DRIVING BILATERALLY. IMPRESSION: NORMAL EEG FOR THE AGE OF THE PATIENT IN [place], DROWSINESS AND SLEEP.
--- NOTE | 2021-08-21 22:15 | P.DS ---
Admission Date: 08/11/21 Discharge Date: 08/21/21 Disposition: ROUTINE DISCHARGE Discharge Condition: FAIR Reason for Admission: Diarrhea - Problems (1) Altered mental status Status: Acute (2) Seizure disorder Status: Chronic (3) Diarrhea Status: Acute Qualifiers: Diarrhea type: unspecified type Qualified Code(s): R19.7 - Diarrhea, unspecified (4) Hyponatremia Status: Chronic (5) HTN (hypertension) Status: Chronic Hospital Course: DHIRAJ COMES IN WITH FATIGUE , DEHYDRATION RHABDOMYOLYSIS AFTER SHE HAD DIARREHA FOR A FEW DAYS AND AT THE SAME TIME SHE STARTED A CHANGED REGIMEN AT HOME WITH SPIRONOLACTONE FOR CONTROL OF 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 I STOPPED SPIRONOLACTONE, ADDED HYDRALAZINE AND SHE WAS A STABLE TO BE DISCHARGED. HER MRI DID NOT SHOW ANY STROKE. Vital Signs/Physical Exam: Temp Pulse Resp BP Pulse Ox 97.7 F 69 15 130/61 97 08/15/21 08:00 08/15/21 08:00 08/15/21 08:00 08/15/21 08:00 08/15/21 08:00 Laboratory Data at Discharge: WBC 11.30 K/uL (4.3-10.9) H D 08/13/21 06:17 Hgb 9.0 g/dL (12.0-15.0) L 08/13/21 06:17 Hct 27.6 % (36.0-45.0) L D 08/13/21 06:17 Plt Count 225 K/uL (152-406) 08/13/21 06:17 PT 11.6 SECONDS (9.5-12.5) 08/10/21 11:07 INR 1.01 08/10/21 11:07 APTT 42.4 SECONDS (24.3-36.9) H 08/10/21 11:07 Sodium 130 mmol/L (136-145) L 08/13/21 06:17 Potassium 4.0 mmol/L (3.5-5.1) 08/13/21 06:17 BUN 12 mg/dL (7-18) 08/13/21 06:17 Creatinine 0.57 mg/dL (0.55-1.3) 08/13/21 06:17 Glucose 95 mg/dL (74-106) 08/13/21 06:17 Magnesium 2.1 mg/dL (1.8-2.4) 08/11/21 05:37 Total Bilirubin 0.4 mg/dL (0.2-1.0) 08/11/21 05:37 AST 100 U/L (15-37) H 08/11/21 05:37 ALT 52 U/L (12-78) 08/11/21 05:37 Alkaline Phosphatase 102 U/L (45-117) 08/11/21 05:37 Amylase 105 U/L (25-115) 08/10/21 11:07 Lipase 190 U/L (73-393) 08/10/21 11:07 Home Medications: Aspirin Chewable [Aspirin Chewable*] 1 tab PO DAILY 11/10/13 Oxybutynin Chloride [Ditropan*] 1 tab PO BID 11/10/13 PHENobarbitaL [Phenobarbital*] 1 tab PO DAILY 11/10/13 Methyldopa [Aldomet*] 250 mg PO BID #60 tab 11/11/13 Amlodipine [Norvasc*] 5 mg PO BEDTIME 07/25/21 Azilsartan Medoxomil [Edarbi] 25 mg PO BID 07/25/21 cloNIDine HCL [Clonidine HCl] 1 tab PO Q4H PRN 08/10/21 Hydralazine [Apresoline*] 25 mg PO BID #60 tab 08/14/21 New Medications: Hydralazine [Apresoline*] 25 mg PO BID #60 tab Followup: Jeremy Frost MD [Primary Care Provider] - Rigoberto Cabrera MD [ACTIVE - CAN ADMIT] - (Follow up in office next week, call to schedule appointment)
== END 2021-08-15 10:28 | disposition home or self-care (01) | DRG 558 ==
LOC: ER 09:54 → ERHOLD 15:38 → UNDOADMOB 15:38 → ERHOLD 15:49 → 2ND 15:49 → INTOOBSV 08-11 11:58 → OBSVTOIN 08-11 11:58 → UNDODISIN 08-14 21:40
PROVIDERS: ADMIT Hospitalist; ATTEND Hospitalist
DX: M62.82 Rhabdomyolysis (principal); E87.1 Hypo-osmolality and hyponatremia; N17.9 Acute kidney failure, unspecified; G40.909 Epilepsy, unspecified, not intractable, without status epilepticus; R19.7 Diarrhea, unspecified; I10 Essential (primary) hypertension; E86.0 Dehydration; D72.829 Elevated white blood cell count, unspecified; Z20.822 Contact with and (suspected) exposure to COVID-19
CPT/HCPCS: 36415; 70450; 70551; 71045; 72125; 80048; 80053; 80076; 82150; 82550; 82553; 82947; 83605; 83631; 83690; 83735; 84145; 84439; 84443; 84484; 85025; 85610; 85730; 86140; 87040; 89055; 93005; 95819; 96374; 97116; 97161; 97530; 99285; J1650; J2405; J7030; U0003

== ENCOUNTER 2021-09-11 14:12 | Inpatient (IN) | payer OTHER ==
[2021-09-11 14:47] LABS: Absolute Lymphocytes (CBC) 1.1 K/uL (0.7-4.9); Hematocrit 32.2 % (36.0-45.0); Lymphocytes % 13.8 % (15.3-44.8); RBC Red Blood Cell Count 3.67 M/uL (3.86-4.86)
[2021-09-11 15:15] LABS: Albumin 2.6 g/dL (3.4-5.0); Bilirubin Direct 0.1 mg/dL (0-0.2); Bilirubin Total 0.2 mg/dL (0.2-1.0); Magnesium 1.8 mg/dL (1.8-2.4); Potassium 3.9 mmol/L (3.5-5.1); Protein, Total 6.9 g/dL (6.4-8.2); Troponin High Sensitivity 18.7 pg/mL (<58.9)
[2021-09-11] MEDS ORDERED: NA CHLORIDE 0.9% 1,000 ML ONE (15:33)
--- NOTE | 2021-09-11 15:52 | ER ---
Nurse's Notes [facility] Name: Larissa Wharton Age: 85 yrs Sex: Female : 1935 Arrival Date: 09/11/2021 Time: 14:13 Bed 15 Private MD: Jeremy Frost V Diagnosis: Hypo-osmolality and hyponatremia;Dehydration Presentation: 09/11 14:28 Chief complaint: Patient's son or daughter states: pt was sent by Dr. Frost for low iw sodium, pt has hx of hyponatremia but they stopped her spironolactone , had labs drawn on Friday and it was low. Coronavirus screen: At this time, the client does not indicate any symptoms associated with coronavirus-19. Ebola Screen: Patient negative for fever greater than or equal to 101.5 degrees Fahrenheit, and additional compatible Ebola Virus Disease symptoms Patient denies exposure to infectious person. Patient denies travel to an Ebola-affected area in the 21 days before illness onset. No symptoms or risks identified at this time. Initial Sepsis Screen: Does the patient meet any 2 criteria? No. Patient's initial sepsis screen is negative. Does the patient have a suspected source of infection? No. Patient's initial sepsis screen is negative. Risk Assessment: Do you want to hurt yourself or someone else? Patient reports no desire to harm self or others. Onset of symptoms was September 11, 2021. 14:28 Method Of Arrival: Wheelchair iw 14:28 Acuity: SHELDON 3 iw Historical: - Allergies: 14:41 Cephalexin; iw 14:41 Latex, Natural Rubber; iw 14:41 Phenytoin; iw - Home Meds: 14:41 Edarbyclor 40-12.5 mg oral tab twice a day [Active]; methyldopa 250 mg Oral tab 1 tab 2 iw times per day [Active]; hydralazine 25 mg Oral tab 1 tab 2 times per day [Active]; oxybutynin chloride 5 mg Oral tab 1 tab 2 times per day [Active]; amlodipine 2.5 mg tab 1 tab once daily [Active]; phenobarbital 64.8 mg Oral tab 1 tab once daily [Active]; aspirin 81 mg Oral TbEC 1 tab once daily [Active]; clonidine HCl 0.1 mg Oral tab as needed [Active]; PreserVision AREDS oral twice a day [Active]; Citracal Oral daily [Active]; glutamine oral [Active]; - PMHx: 18:42 Hypertensive disorder; ph - Immunization history:: Adult Immunizations unknown. - Social history:: Smoking status: Patient denies any tobacco usage or history of. Screenin:55 Abuse screen: Denies threats or abuse. Denies injuries from another. Nutritional ph screening: No deficits noted. Tuberculosis screening: No symptoms or risk factors identified. Fall Risk No fall in past 12 months (0 pts). No secondary diagnosis (0 pts). IV access (20 points). Ambulatory Aid- None/Bed Rest/Nurse Assist (0 pts). Gait- Weak (10 pts.). Mental Status- Oriented to own ability (0 pts). Total Monroy Fall Scale indicates High Risk Score (45 or more points). Fall prevention measures have been instituted. Side Rails Up X 2 Placed Close to Nursing Station Frequent Obs/Assessments Occuring Family Present and informed to notify staff if the need to leave the bedside As available patient and family educated on Fall Prevention Program and Strategies. Assessment: 15:00 General: Appears in no apparent distress. comfortable, well groomed, Behavior is calm, ph cooperative, appropriate for age, Denies fever, feeling ill. Pain: Denies pain. Neuro: Level of Consciousness is awake, alert, obeys commands, Oriented to person, place, Moves all extremities. Cardiovascular: Capillary refill < 3 seconds in bilateral fingers Patient's skin is warm and dry. Respiratory: Airway is patent Respiratory effort is even, unlabored. GI: No signs and/or symptoms were reported involving the gastrointestinal system. Derm: Skin is fragile, is thin, Skin is pink, warm \T\ dry. Wound noted right garcia Wound is currently dressed w/ a bandage, daughter reports that Dr Cabrera did a biopsy in the area. Musculoskeletal: Circulation, motion, and sensation intact. Range of motion: intact in all extremities. 16:00 Reassessment: Patient appears in no apparent distress at this time. Patient and/or ph family updated on plan of care and expected duration. Pain level reassessed. Pt resting quietly, denies pain at this time, VSS, daughter at bedside. 17:00 Reassessment: Patient appears in no apparent distress at this time. Patient and/or ph family updated on plan of care and expected duration. Pain level reassessed. 09/12 15:33 Reassessment: Pt just returned back to ER room #15. Finished CT and MRI. Called report cb5 to floor nurse TITO Cristina. Vital Signs: 09/11 14:50 Pulse 70; Resp 16; Pulse Ox 100% on R/A; Weight 70.31 kg; Height 5 ft. 0 in. (152.40 iw cm); 15:55 BP 127 / 60; Pulse 62; Resp 18; Pulse Ox 100% on R/A; ph 17:30 BP 135 / 68; Pulse 56; Resp 16; Pulse Ox 100% on R/A; ph 18:40 BP 138 / 65; Pulse 60; Resp 18; Pulse Ox 99% on R/A; ph 14:50 Body Mass Index 30.27 (70.31 kg, 152.40 cm) ED Course: 14:13 Patient arrived in ED. am2 14:13 Jeremy Frost MD is Private Physician. am2 14:25 Darrell Castelan MD is Attending Physician. sp3 14:26 Inge Orr RN is Primary Nurse. ph 14:40 Triage completed. iw 15:51 Jennifer Kenny MD is Hospitalizing Provider. sp3 15:56 Arm band placed on Patient placed in an exam room. ph 15:56 Patient has correct armband on for positive identification. Placed in gown. Bed in low ph position. Call light in reach. Side rails up X2. driller brake lining on. Pulse ox on. NIBP on. Door closed. Noise minimized. Warm blanket given. 18:41 No provider procedures requiring assistance completed. Patient admitted, IV remains in ph place. 20:15 Basic Metabolic Panel Sent. tk1 Administered Medications: 15:35 Drug: NS 0.9% 1000 ml Route: IV; Rate: 50 ml/hr; Site: left antecubital; ph 18:40 Follow up: Response: No adverse reaction; IV Status: Infusion continued upon admission ph Outcome: 15:51 Decision to Hospitalize by Provider. sp3 09/12 16:26 Patient left the ED. cb5 Signatures: Lin Saldana RN RN iw Inge Orr RN RN ph Nancy Johnson am2 Darrell Castelan MD MD sp3 Krysta Cuevas tk1 Joseph, Shahnaz, RN RN cb5
--- NOTE | 2021-09-11 15:52 | EDPHYS ---
Physician Documentation [facility] Name: Larissa Wharton Age: 85 yrs Sex: Female : 1935 Arrival Date: 09/11/2021 Time: 14:13 Bed 15 Private MD: Jeremy Frost V ED Physician Darrell Castelan HPI: 09/11 15:08 This 85 yrs old Female presents to ER via Wheelchair with complaints of low sodium. sp3 15:08 85-year-old female with a history of possible seizure disorder on phenytoin and sp3 phenobarbital, dehydration in the past, who presents to the ED sent by her primary care physician Dr. Frost for hyponatremia with a sodium level of 115. Patient complains of generalized weakness and poor mentation with occasional confusion. No seizure history reported. Patient denies any pain including headache, neck pain, chest pain, abdominal pain, extremity pain and also denies nausea, vomiting, diarrhea, shortness of breath, rash, free water loading, change in her medications, any other ROS at this time.. Historical: - Allergies: 14:41 Cephalexin; iw 14:41 Latex, Natural Rubber; iw 14:41 Phenytoin; iw - Home Meds: 14:41 Edarbyclor 40-12.5 mg oral tab twice a day [Active]; methyldopa 250 mg Oral tab 1 tab 2 iw times per day [Active]; hydralazine 25 mg Oral tab 1 tab 2 times per day [Active]; oxybutynin chloride 5 mg Oral tab 1 tab 2 times per day [Active]; amlodipine 2.5 mg tab 1 tab once daily [Active]; phenobarbital 64.8 mg Oral tab 1 tab once daily [Active]; aspirin 81 mg Oral TbEC 1 tab once daily [Active]; clonidine HCl 0.1 mg Oral tab as needed [Active]; PreserVision AREDS oral twice a day [Active]; Citracal Oral daily [Active]; glutamine oral [Active]; - PMHx: 18:42 Hypertensive disorder; ph - Immunization history:: Adult Immunizations unknown. - Social history:: Smoking status: Patient denies any tobacco usage or history of. ROS: 15:10 Constitutional: Negative for fever, chills, and weight loss, Eyes: Negative for injury, sp3 pain, redness, and discharge, Neck: Negative for injury, pain, and swelling, Cardiovascular: Negative for chest pain, palpitations, and edema, Respiratory: Negative for shortness of breath, cough, wheezing, and pleuritic chest pain, Abdomen/GI: Negative for abdominal pain, nausea, vomiting, diarrhea, and constipation, Back: Negative for injury and pain, Skin: Negative for injury, rash, and discoloration, Allergy/Immunology: Negative for hives, rash, and allergies, Endocrine: Negative for neck swelling, polydipsia, polyuria, polyphagia, and marked weight changes. 15:10 All other systems are negative. Exam: 15:10 Constitutional: This is a well developed, well nourished patient who is awake, alert, sp3 and in no acute distress. Head/Face: Normocephalic, atraumatic. Eyes: Pupils equal round and reactive to light, extra-ocular motions intact. Lids and lashes normal. Conjunctiva and sclera are non-icteric and not injected. Cornea within normal limits. Periorbital areas with no swelling, redness, or edema. ENT: Nares patent. No nasal discharge, no septal abnormalities noted. External auditory canals are clear. Oropharynx with no redness, swelling, or masses, exudates, or evidence of obstruction, uvula midline. Mucous membranes moist. Neck: Trachea midline, no thyromegaly or masses palpated, and no cervical lymphadenopathy. Supple, full range of motion without nuchal rigidity, or vertebral point tenderness. No Meningismus. Chest/axilla: Normal chest wall appearance and motion. Nontender with no deformity. No lesions are appreciated. Cardiovascular: Regular rate and rhythm with a normal S1 and S2. No gallops, murmurs, or rubs. Normal PMI, no JVD. No pulse deficits. Respiratory: Lungs have equal breath sounds bilaterally, clear to auscultation and percussion. No rales, rhonchi or wheezes noted. No increased work of breathing, no retractions or nasal flaring. Abdomen/GI: Soft, non-tender, with normal bowel sounds. No distension or tympany. No guarding or rebound. No evidence of tenderness throughout. Skin: Warm, dry with normal turgor. Normal color with no rashes, no lesions, and no evidence of cellulitis. Psych: Awake, alert, with orientation to person, place and time. Behavior, mood, and affect are within normal limits. 15:10 Neuro: Patient neurologically grossly intact without any seizure activity. Patient is globally weak but has no focal neuro deficits.. 15:21 ECG was reviewed by the Attending Physician. EKG demonstrates normal sinus rhythm at 68 sp3 bpm with a first-degree AV block with a VT interval of 228, left anterior fascicular block, biphasic P wave, left axis deviation, mild J-point elevation precordially without any evidence of ischemia. Vital Signs: 14:50 Pulse 70; Resp 16; Pulse Ox 100% on R/A; Weight 70.31 kg; Height 5 ft. 0 in. (152.40 iw cm); 15:55 BP 127 / 60; Pulse 62; Resp 18; Pulse Ox 100% on R/A; ph 17:30 BP 135 / 68; Pulse 56; Resp 16; Pulse Ox 100% on R/A; ph 18:40 BP 138 / 65; Pulse 60; Resp 18; Pulse Ox 99% on R/A; ph 14:50 Body Mass Index 30.27 (70.31 kg, 152.40 cm) iw MDM: 14:29 Patient medically screened. sp3 15:11 Data reviewed: vital signs, nurses notes. ED course: 85-year-old female with likely sp3 chronic hyponatremia with an acute exacerbation with a sodium level of 115 prehospital. Will await repeat testing here in the ED and consider hypertonic saline versus a slow normal saline infusion to increase patient's sodium at approximately 5 mEq/h. Although patient has generalized weakness, patient has no focal neuro deficits and risk of overcorrection must be weighed with central pontine demyelination. Will consult with nephrology and per PCP we are to admit to hospitalist service since he is unavailable at this time.. 15:21 Data reviewed: vital signs, nurses notes. sp3 15:57 ED course: With nephrology who agrees at the 50 mL/h of normal saline. They do not sp3 suggest hypertonic saline either. This has been communicated to the inpatient team. Dr. Paz is oncall for nephrology.. 09/11 14:27 Order name: Basic Metabolic Panel; Complete Time: 15:31 sp3 09/11 14:27 Order name: CBC with Diff; Complete Time: 15:12 sp3 09/11 14:27 Order name: LFT's; Complete Time: 15:31 3 09/11 14:27 Order name: Magnesium; Complete Time: 15:31 [facility] 09/11 14:27 Order name: NT PRO-BNP; Complete Time: 15:31 09/11 14:27 Order name: PT-INR; Complete Time: 15:12 09/11 14:27 Order name: Troponin HS; Complete Time: 15:31 [facility] 09/11 14:27 Order name: Urine Sodium Random [facility] 09/11 14:27 Order name: Urine Creatinine [facility] 09/11 14:27 Order name: Urine Microscopic Only [facility] 09/11 16:20 Order name: COVID-19 SARS RT PCR (Document "Date of Onset" if Symptomatic) [facility] 09/11 17:06 Order name: Basic Metabolic Panel [facility] 09/12 00:17 Order name: Urinalysis W/Microscopic [facility] 09/12 03:45 Order name: CBC with Automated Diff [facility] 09/11 14:27 Order name: EKG; Complete Time: 14:28 [facility] 09/11 14:27 Order name: Cardiac monitoring; Complete Time: 14:56 09/11 14:27 Order name: EKG - Nurse/Tech; Complete Time: 14:56 [facility] 09/11 14:27 Order name: IV Saline Lock; Complete Time: 14:57 [facility] 09/11 14:27 Order name: Labs collected and sent; Complete Time: 14:57 09/11 14:27 Order name: O2 Per Protocol; Complete Time: 14:57 [facility] 09/11 14:27 Order name: O2 Sat Monitoring; Complete Time: 14:57 [facility] 09/12 04:18 Order name: Cortisol [facility] 09/12 05:10 Order name: NT PRO-BNP [facility] 09/12 05:10 Order name: T4 Free [facility] 09/12 05:10 Order name: Thyroid Stimulating Hormone [facility] 09/12 05:23 Order name: Comprehensive Metabolic Panel [facility] 09/12 11:29 Order name: Basic Metabolic Panel [facility] 09/12 14:39 Order name: CT [facility] 09/12 15:24 Order name: MRI EDFL Administered Medications: 15:35 Drug: NS 0.9% 1000 ml Route: IV; Rate: 50 ml/hr; Site: left antecubital; ph 18:40 Follow up: Response: No adverse reaction; IV Status: Infusion continued upon admission ph Disposition Summary: 09/11/21 15:51 Hospitalization Ordered Hospitalization Status: Inpatient Admission sp3 Provider: Jennifer Kenny sp3 Condition: Stable sp3 Problem: an acute exacerbation sp3 Symptoms: are unchanged sp3 Bed/Room Type: Standard sp3 Location: Telemetry/MedSurg (Inpatient)(09/12/21 14:14) dw Room Assignment: [facility](09/12/21 14:14) Diagnosis - Hypo-osmolality and hyponatremia sp3 - Dehydration sp3 Forms: - Medication Reconciliation Form sp3 - SBAR form sp3 Signatures: Dispatcher [employer] EDSidra Harrington RN RN Lin Epps RN TITO Inge Orr RN TITO Neyda Flores RN RN Darrell Red MD MD sp3 Corrections: (The following items were deleted from the chart) 20:14 15:51 Telemetry/MedSurg (Inpatient) sp3 cg 20:14 15:51 sp3 cg 09/12 14:14 09/11 20:14 [facility] ER HOLD cg dw 09/12 14:14 09/11 20:14 ERHOLD- cg dw
[2021-09-11] MEDS ORDERED: ACETAMINOPHEN 500 MG TAB PO PRN (17:02)
[2021-09-11] MEDS ORDERED: ONDANSETRON 4 MG/2 ML VIAL IV PRN (17:02)
[2021-09-11] MEDS ORDERED: MORPHINE 2 MG/ML SYR IV PRN (17:02)
[2021-09-11] MEDS ORDERED: NA CHLORIDE 0.9% 1,000 ML IV SCH (18:00)
--- NOTE | 2021-09-11 20:05 | P.HP ---
Certification for Inpatient Patient admitted to: Inpatient With expected LOS: >2 Midnights Patient will require the following post-hospital care: None Practitioner: I am a practitioner with admitting privileges, knowledge of patient current condition, hospital course, and medical plan of care. Services: Services provided to patient in accordance with Admission requirements found in Title 42 Section 412.3 of the Code of Federal Regulations Patient History Date of Service: 09/11/21 Reason for admission: Severe hyponatremia History of Present Illness: Bharti is an 85yo female who presents to the hospital with hyponatremia. She was here a month ago with slight hyponatremia. Patient has been having issues with hyponatremia for the last couple of years. Patient symptoms started early this week, and on symptoms worsened and she has developed severe hyponatremia with a flat affect and altered mentation. She will be admitted to the hospital for further evaluation. 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 Patient sodium normally corrects and patient is on multiple medications that can cause this. Will probably need to wean off on some of his medications that he takes at home and may cause SIADH. We will also check for thyroid function and cortisol function. We will check for fractional excretion of sodium with urine sodium, urine creatinine, serum Cr. Also check urine osmolality & serum osmolarity. Allergies latex [Latex] Allergy (Intermediate, Verified 11/10/13 01:26) Hives/Rash cephalexin [From Keflex] Adverse Reaction (Intermediate, Verified 07/25/21 10:52) AGITATION phenytoin [From Dilantin] Adverse Reaction (Intermediate, Verified 07/25/21 10:52) AGITATION Home Medications: Aspirin Chewable [Aspirin Chewable*] 1 tab PO DAILY 11/10/13 Oxybutynin Chloride [Ditropan*] 1 tab PO BID 11/10/13 PHENobarbitaL [Phenobarbital*] 1 tab PO DAILY 11/10/13 Methyldopa [Aldomet*] 250 mg PO BID #60 tab 11/11/13 Amlodipine [Norvasc*] 5 mg PO BEDTIME 07/25/21 Azilsartan Medoxomil [Edarbi] 25 mg PO BID 07/25/21 cloNIDine HCL [Clonidine HCl] 1 tab PO Q4H PRN 08/10/21 Hydralazine [Apresoline*] 25 mg PO BID #60 tab 08/14/21 - Past Medical/Surgical History Diabetic: No -: HTN -: Bladder urgency -: Right knee SX -: Latia -: Breast Reduction -: foot sx -: wrist sx - Family History Father Family History: Reviewed- Non-Contributory - Social History Smoking Status: Former smoker Alcohol use: No CD- Drugs: No Caffeine use: No Review of Systems 10-point ROS is otherwise unremarkable Physical Examination - Vital Signs Temperature: 98 F Blood Pressure: 140/70 Pulse: 68 Respirations: 20 Pulse Ox (%): 95 - Physical Exam General: Alert, In no apparent distress, Confused HEENT: Atraumatic, PERRLA, Mucous membr. moist/pink, EOMI, Sclerae nonicteric Neck: Supple, 2+ carotid pulse no bruit, No LAD, Without JVD or thyroid abnormality Respiratory: Clear to auscultation bilaterally, Normal air movement Cardiovascular: Regular rate/rhythm, Normal S1 S2 Gastrointestinal: Normal bowel sounds, No tenderness Musculoskeletal: No tenderness Integumentary: No rashes Neurological: Normal gait, Normal speech, Normal strength at 5/5 x4 extr, Normal tone, Normal affect Lymphatics: No axilla or inguinal lymphadenopathy - Studies Laboratory Data (last 24 hrs) 09/11/21 14:36: PT 11.5, INR 1.00 09/11/21 14:36: WBC 8.00, Hgb 10.7 L, Hct 32.2 L, Plt Count 269 09/11/21 14:36: Sodium 117 L*, Potassium 3.9, BUN 31 H, Creatinine 0.98, Glucose 143 H, Magnesium 1.8, Total Bilirubin 0.2, AST 90 H, ALT 224 H, Alkaline Phosphatase 277 H Assessment & Plan - Problems (Diagnosis) (1) Altered mental status Current Visit: No Status: Acute (2) HTN (hypertension) Current Visit: No Status: Chronic (3) Hyponatremia Current Visit: No Status: Acute (4) Seizure disorder Current Visit: No Status: Chronic - Plan Plan: 1. Nephrology recommended sodium at 50 cc an hour 2. BMP every 6h 3. Check thyroid and cortisol level 4. Check FeNa 5. Neurochecks 6. Adjust medications and stop methyldopa as patient's liver enzymes are elevated as well and some reports of hyponatremia 7. Family wants to wean off of phenobarbital 8. GI and DVT prophylaxis Discharge Plan: Home Plan to discharge in: Greater than 2 days - Advance Directives Does patient have a Living Will: No Does patient have a Durable POA for Healthcare: No - Code Status/Comfort Care Code Status Assessed: Yes Code Status: Full Code Critical Care: No Time Spent Managing PTS Care (In Minutes): 45
[2021-09-11] MEDS ORDERED: METHYLDOPA 250 MG TABLET PO SCH (21:00)
[2021-09-11] MEDS ORDERED: AMLODIPINE 5 MG TAB PO SCH (21:00)
[2021-09-11] MEDS ORDERED: HYDRALAZINE HCL 25 MG TABLET PO SCH (21:00)
[2021-09-11 21:25] LABS: Potassium 3.8 mmol/L (3.5-5.1)
[2021-09-11] MEDS ORDERED: AMLODIPINE 5 MG TAB ONE (21:55)
[2021-09-12 00:16] LABS: Urine Appearance CLEAR (Clear); Urine Bilirubin NEGATIVE (Negative); Urine Blood NEGATIVE (Negative); Urine Color YELLOW (Yellow); Urine Glucose NEGATIVE (Negative); Urine Protein NEGATIVE (Negative); Urine Specific Gravity <=1.005 (1.005-1.030); Urine Urobilinogen 0.2 mg/dL (0.2-1.0); Urine pH 6.5 (5.0-7.0)
[2021-09-12 00:30] LABS: Urine Bacteria <20 /HPF (<20); Urine RBC <5 /HPF (NONE SEEN)
[2021-09-12 03:23] LABS: Absolute Lymphocytes (CBC) 1.3 K/uL (0.7-4.9); Hematocrit 29.5 % (36.0-45.0); Lymphocytes % 15.4 % (15.3-44.8); MPV 9.6 fL (7.6-11.3); RBC Red Blood Cell Count 3.38 M/uL (3.86-4.86)
[2021-09-12 05:10] LABS: Thyroid Stimulating Hormone 0.865 uIU/mL (0.360-3.740)
[2021-09-12 05:23] LABS: Albumin 2.5 g/dL (3.4-5.0); Bilirubin Total 0.2 mg/dL (0.2-1.0); Potassium 3.8 mmol/L (3.5-5.1); Protein, Total 6.5 g/dL (6.4-8.2)
[2021-09-12] MEDS: NA CHLORIDE 0.9% 1,000 ML IV SCH ×2 (07:00→17:20)
[2021-09-12] MEDS ORDERED: METHYLDOPA 250 MG TABLET PO SCH ×3 (09:00)
[2021-09-12] MEDS ORDERED: PHENOBARBITAL 32.4 MG TABLET PO SCH (09:00)
[2021-09-12] MEDS ORDERED: AMLODIPINE 5 MG TAB ONE (09:11)
[2021-09-12] MEDS ORDERED: NA CHLORIDE 0.9% 1,000 ML ONE (09:11)
--- NOTE | 2021-09-12 09:37 | P.CNS ---
Date of Consult: 09/12/21 Reason for Consult: Severe hyponatremia Requesting Physician: Darrell Castelan Chief Complaint: Severe hyponatremia History of Present Illness: 85 y o female pt with hx of HTN, HLD, Seizures who was evaluated in the ER for episode of low sodium. her sodium was [address] and she was sent to the ED> she had sodium of 117 on initial labs and she was started on NS infusion and admitted for inpt care. Nephrology was consulted for management of hyponatremia. she had weakness and lethargy but she denied any issues with n/v, diarrhea, headache, fever, chills, rigor. Allergies latex [Latex] Allergy (Intermediate, Verified 11/10/13 01:26) Hives/Rash cephalexin [From Keflex] Adverse Reaction (Intermediate, Verified 07/25/21 10:52) AGITATION phenytoin [From Dilantin] Adverse Reaction (Intermediate, Verified 07/25/21 10:52) AGITATION Home Medications: Aspirin Chewable [Aspirin Chewable*] 1 tab PO DAILY 11/10/13 Oxybutynin Chloride [Ditropan*] 1 tab PO BID 11/10/13 PHENobarbitaL [Phenobarbital*] 1 tab PO DAILY 11/10/13 Methyldopa [Aldomet*] 250 mg PO BID #60 tab 11/11/13 Amlodipine [Norvasc*] 5 mg PO BEDTIME 07/25/21 Azilsartan Medoxomil [Edarbi] 25 mg PO BID 07/25/21 cloNIDine HCL [Clonidine HCl] 1 tab PO Q4H PRN 08/10/21 Hydralazine [Apresoline*] 25 mg PO BID #60 tab 08/14/21 - Past Medical/Surgical History Diabetic: No -: HTN -: Bladder urgency -: Right knee SX -: Latia -: Breast Reduction -: foot sx -: wrist sx - Family History Father Family History: Reviewed- Non-Contributory - Social History Smoking Status: Never smoker Alcohol use: No CD- Drugs: No Caffeine use: No Review of Systems General: Weakness, Malaise Eyes: Unremarkable ENT: Unremarkable Respiratory: Unremarkable Cardiovascular: Unremarkable Gastrointestinal: Unremarkable Genitourinary: Unremarkable Integumentary: Unremarkable Neurological: Unremarkable Physical Examination Temp Pulse Resp BP Pulse Ox 98.7 F 59 16 132/56 L 100 09/12/21 04:00 09/12/21 04:00 09/12/21 04:00 09/12/21 04:00 09/12/21 04:00 General: Alert, Oriented x3 HEENT: Atraumatic, Normocephalic Respiratory: Normal air movement, Diminished Cardiovascular: Regular rate/rhythm, Normal S1 S2 Gastrointestinal: Soft and benign Neurological: Normal speech Laboratory Data (last 24 hrs) 09/11/21 14:36: PT 11.5, INR 1.00 09/11/21 14:36: WBC 8.00, Hgb 10.7 L, Hct 32.2 L, Plt Count 269 09/11/21 14:36: Sodium 117 L*, Potassium 3.9, BUN 31 H, Creatinine 0.98, Glucose 143 H, Magnesium 1.8, Total Bilirubin 0.2, AST 90 H, ALT 224 H, Alkaline Phosphatase 277 H Conclusions/Impression: 1. Hyponatremia: Low sodium of 117 noted on labs. she had bee on NS infusion and she is doing well. we will follow q6hr sodium checks. we will monitor symptomatology. we think she had volume depletion as casue of hyponatremia. 2.Seizures: we will continue antiseizure meds.
[2021-09-12 11:28] LABS: Potassium 4.1 mmol/L (3.5-5.1)
--- NOTE | 2021-09-12 13:05 | EKG ---
Test Date: 2021-09-11 Test Time: 14:54:03 Wringer Operator: ADDISON MEASUREMENT RESULTS: Intervals: Rate: 68 [place]: 228 QRSD: 114 QT: 412 QTc: 438 [place]: P: 36 [place]: 228 QRS: -75 T: 73 INTERPRETIVE STATEMENTS: Sinus rhythm with 1st degree AV block Possible Left atrial enlargement Left anterior fascicular block Abnormal ECG Compared to ECG 08/10/2021 11:19:55 Left ventricular hypertrophy no longer present Myocardial infarct finding no longer present Electronically Signed On 09-12-21 13:02:55 [employer] by Ashutosh Prajapati
--- NOTE | 2021-09-12 14:38 | RAD REPORT ---
EXAM DESCRIPTION: CT - Thorax W/ Con CLINICAL HISTORY: Chest pain lung mass per dr solares. COMPARISON: CTANGIO CHEST FOR PE dated 11/11/2013; Chest Single View dated 08/10/2021; Head C Spine M pr Wo Con dated 08/10/2021 FINDINGS: The lungs are mildly emphysematous but clear. No lung masses seen. No pleural thickening o r pleural effusion. No pneumothorax. No axillary, mediastinal or hilar adenopathy. Subacute right anterolateral rib fractures are seen. A few mildly prominent lymph nodes are seen at t he esophagogastric junction. All CT scans are performed using dose optimization technique as appropriate and may include automated exposure control or mA/KV adjustment according to patient size. IMPRESSION: Mild COPD without evidence of a lung mass seen.
--- NOTE | 2021-09-12 15:23 | RAD REPORT ---
EXAM DESCRIPTION: MRI - Brain W/Wo Cont - 09/12/2021 3:13 pm CLINICAL HISTORY: hyponatremia, altered mental status COMPARISON: Brain Wo Cont dated 08/13/2021 TECHNIQUE: Multi-sequence, multiplanar MR imaging of the brain was performed with contrast. FINDINGS: No intracranial hemorrhage, hydrocephalus, or extra-axial fluid collection.Moderate conflu ent T2/FLAIR hyperintensity in the periventricular and deep white matter is present compatible with c hronic microvascular ischemic changes. No edema or shift of midline structures. No intracranial mass. DWI is negative for acute CVA. The midline structures are normally formed. Mastoid air cells and paranasal sinuses are clear. Post-contrast images show no abnormal enhancement to suggest tumor or infection. IMPRESSION: No acute or concerning intracranial abnormalities. No pathologic post-contrast enhancement suspected.
[2021-09-12] MEDS: ENOXAPARIN 40 MG/0.4 ML SQ SCH (17:20)
[2021-09-12 17:24] LABS: Potassium 4.6 mmol/L (3.5-5.1)
[2021-09-12 17:42] VITALS: BMI 30.2
--- NOTE | 2021-09-12 17:52 | P.PN ---
Subjective Date of Service: 09/12/21 Chief Complaint: Severe hyponatremia Subjective: Improving SHE IS TALKING, MAKING SENSE TODAY. HAS NO ACUTE COMPLAINTS. WILL DO PT. DR SENA CALLED ME ABOUT NODULE ON LUNGS BUT NONE OF X RAYS SHOW IT. I DID CT CHEST AND THAT DOES NO SHOW NODULE. Review of Systems 10-point ROS is otherwise unremarkable General: Weakness Physical Examination - Vital Signs Temperature: 98.7 F Blood Pressure: 106/52 Pulse: 60 Respirations: 16 Pulse Ox (%): 98 - Physical Exam General: Mild distress HEENT: Atraumatic, PERRLA, EOMI Neck: Supple, JVD not distended Respiratory: Clear to auscultation bilaterally, Normal air movement Cardiovascular: Regular rate/rhythm, Normal S1 S2 Gastrointestinal: Normal bowel sounds, No tenderness Musculoskeletal: No tenderness Integumentary: No rashes Neurological: Normal speech, Normal tone, Normal affect Lymphatics: No axilla or inguinal lymphadenopathy - Studies Medications List Reviewed: Yes Assessment And Plan - Current Problems (Diagnosis) (1) HTN (hypertension) Current Visit: No Status: Chronic Plan: USUALLY SHE HAS VERY DIFFICULT TO CONTROL BP WHEN SHE IS NOT DEHYDRATED LIKE THIS TIME. DEHYDRATION IS FROM DIARRHEA AND EDARBICLOR. WE STOPPED THE MEDICINE. SHE IN PAST HAS NOT TOLERATED MANY MEDS. SHE HAS ISSUES WITH B [employer] CHANNEL BLOCKERS, NORVASC GIVES HER EDEMA. OTHER ROBIN BLOCKERS GAVE BRADYCARDIA. LOSARTAN AND OTHER ANGI AND ARB DID NOT WORK. SHE HAS BEEN ON ALDOMET FOR MANY YEARS AND WORKED WELL FOR HER. (2) Hyponatremia Current Visit: No Status: Acute Plan: SHE NEVER HAD HYPONARTREMIA TO THIS DEGREE BEFORE. THIS HAPPENED SHE GOT DEHYDRATED FROM DIARREHA. HE BASELINE SODIUM IS ABOUT 132 FROM MEDS. SHE IS ON PHENOBARBITAL FOR YEARS BUT DAUGHTER SAYS SHE NEVER HAD A SEIZURE. THIS CAN BE MULTIFACTORIAL. IV FLUIDS ARE WORKING WILL REDUCE THE RATE TO AVOID CENTRAL PONTINE MYELINOLYSIS. DAILY C7. TALKED TO DAUGHTER TODAY AND ON DAY OF ADMISSION. (3) Seizure disorder Current Visit: No Status: Chronic Plan: PER DAUGHTER SHE DOES NOT HAVE THIS. YEARS AGO WHEN AT HIGH ALTITUDE SHE PASSED OUT AND THE LOCAL DOCTOR PUT HER ON PHENOBARBITAL. SHE NEVER GOT OFF AFTER THAT. DAUGHTER IS REQUESTING AND I AGREE THAT WE CAN STOP IT THERE IS NO DOCUMENTED SEIZURE IN THE PAST.
[2021-09-12] MEDS: AMLODIPINE 5 MG TAB PO SCH (20:46)
[2021-09-12] MEDS: cloNIDine HCL 0.1 MG TAB PO PRN (23:37)
[2021-09-13 05:12] LABS: Absolute Lymphocytes (CBC) 1.9 K/uL (0.7-4.9); Hematocrit 29.6 % (36.0-45.0); Lymphocytes % 18.7 % (15.3-44.8); MPV 8.8 fL (7.6-11.3); RBC Red Blood Cell Count 3.39 M/uL (3.86-4.86)
[2021-09-13 05:45] LABS: BUN Blood Urea Nitrogen 17 mg/dL (7-18); Bicarbonate 23 mmol/L (21-32); Glucose Level 100 mg/dL (74-106); Sodium Level 121 mmol/L (136-145)
[2021-09-13] MEDS: METHYLDOPA 250 MG TABLET PO SCH (09:02)
--- NOTE | 2021-09-13 09:11 | P.PN ---
Subjective Date of Service: 09/13/21 Chief Complaint: Severe hyponatremia Subjective: No new changes Physical Examination - Vital Signs Temperature: 97.3 F Blood Pressure: 153/67 Pulse: 70 Respirations: 18 Pulse Ox (%): 100 - Physical Exam General: Alert, In no apparent distress HEENT: Atraumatic, Normocephalic Neck: Supple Respiratory: Normal air movement Cardiovascular: Regular rate/rhythm, Normal S1 S2 Gastrointestinal: Soft and benign Neurological: Normal speech - Studies Medications List Reviewed: Yes Assessment And Plan - Plan 1. Hyponatremia: Serum sodium is 121 on last check. We will continue patient on salt tablet at 1 g 3 times daily and monitor her sodium level every 12 for now. we will monitor symptomatology. 2.Seizures: we will continue antiseizure meds.
[2021-09-13] MEDS: SODIUM CHLORIDE 1 GM TAB PO SCH ×3 (09:30→21:45)
--- NOTE | 2021-09-13 13:15 | P.PN ---
Subjective Date of Service: 09/13/21 Chief Complaint: Severe hyponatremia Subjective: Improving SHE IS TALKING, MAKING SENSE TODAY. HAS NO ACUTE COMPLAINTS. WILL DO PT. DR SENA CALLED ME ABOUT NODULE ON LUNGS BUT NONE OF X RAYS SHOW IT. I DID CT CHEST AND THAT DOES NO SHOW NODULE. SHE IS CONFUSED BUT AWAKE. SHE HAS NO ACUTE COMPLAINTS. NOT WALKING YET. Review of Systems 10-point ROS is otherwise unremarkable General: Weakness, Malaise, As per HPI Physical Examination - Vital Signs Temperature: 97.3 F Blood Pressure: 153/67 Pulse: 70 Respirations: 18 Pulse Ox (%): 100 - Physical Exam General: Alert, Mild distress, Confused HEENT: Atraumatic, PERRLA, EOMI Neck: Supple, JVD not distended Respiratory: Clear to auscultation bilaterally, Normal air movement Cardiovascular: Regular rate/rhythm, Normal S1 S2 Gastrointestinal: Normal bowel sounds, No tenderness Musculoskeletal: No tenderness Integumentary: No rashes Neurological: Normal speech, Normal tone, Normal affect Lymphatics: No axilla or inguinal lymphadenopathy - Studies Medications List Reviewed: Yes Assessment And Plan - Current Problems (Diagnosis) (1) HTN (hypertension) Current Visit: No Status: Chronic Plan: USUALLY SHE HAS VERY DIFFICULT TO CONTROL BP WHEN SHE IS NOT DEHYDRATED LIKE THIS TIME. DEHYDRATION IS FROM DIARRHEA AND EDARBICLOR. WE STOPPED THE MEDICINE. SHE IN PAST HAS NOT TOLERATED MANY MEDS. SHE HAS ISSUES WITH [employer] CH[employer] BLOCKERS, [employer]VASC GIVES HER EDEMA. OTHER ROBIN BLOCKERS GAVE BRADYCARDIA. LOSARTAN AND OTHER ANGI AND ARB DID NOT WORK. SHE HAS BEEN ON ALDOMET FOR MANY YEARS AND WORKED WELL FOR HER. RESTART HYDRALAZINE. WILL REDUCE NORVASC TO 2.5 MG SHE COULD NOT TAKE 5 MG. (2) Hyponatremia Current Visit: No Status: Acute Plan: TALKED TO DAUGHTER TODAY AND ON DAY OF ADMISSION. SIADH IS ETIOLOGY DR. CARDOZA AGREES. FLUID RESTRICTION STARTED. CALLED DAUGHTER TO DISCUSS AGAIN. (3) Seizure disorder Current Visit: No Status: Chronic Plan: PER DAUGHTER SHE DOES NOT HAVE THIS. YEARS AGO WHEN AT HIGH ALTITUDE SHE PASSED OUT AND THE LOCAL DOCTOR PUT HER ON PHENOBARBITAL. SHE NEVER GOT OFF AFTER THAT. DAUGHTER IS REQUESTING AND I AGREE THAT WE CAN STOP IT THERE IS NO DOCUMENTED SEIZURE IN THE PAST.
--- NOTE | 2021-09-13 14:14 | RAD REPORT ---
EXAM DESCRIPTION: CT - Abdomen Pelvis Wo Contrast - 09/13/2021 1:45 pm CLINICAL HISTORY: Renal mass COMPARISON: 2017 cat scan TECHNIQUE: Computed axial tomography of the abdomen and pelvis was obtained. IV and oral contrast we re not requested. All CT scans are performed using dose optimization technique as appropriate and may include automated exposure control or mA/KV adjustment according to patient size. FINDINGS: The evaluation of solid organs, vessels and bowel is limited secondary to the lack of con trast administration. The liver, spleen, pancreas, and adrenals appear appear grossly normal. Spot small left renal parapelvic cysts unchanged. No hydronephrosis. No right renal mass. Cholecystectomy. Atherosclerotic changes. Hernandez catheter in the bladder. No evidence of diverticulitis. Spondylosis involves the lumbar spine resulting in spinal stenosis. Tiny umbilical hernia IMPRESSION: No acute abnormality is displayed.
[2021-09-13] MEDS: HYDRALAZINE HCL 25 MG TABLET PO SCH ×2 (14:53→21:45)
[2021-09-13] MEDS: ENOXAPARIN 40 MG/0.4 ML SQ SCH (16:27)
[2021-09-13] MEDS: AMLODIPINE 5 MG TAB PO SCH (21:44)
[2021-09-14 06:09] LABS: Absolute Lymphocytes (CBC) 0.9 K/uL (0.7-4.9); Hematocrit 28.7 % (36.0-45.0); Lymphocytes % 8.8 % (15.3-44.8); MPV 8.7 fL (7.6-11.3); RBC Red Blood Cell Count 3.26 M/uL (3.86-4.86)
[2021-09-14 06:24] LABS: BUN Blood Urea Nitrogen 19 mg/dL (7-18); Bicarbonate 23 mmol/L (21-32); Glucose Level 95 mg/dL (74-106); Potassium 4.2 mmol/L (3.5-5.1); Sodium Level 124 mmol/L (136-145)
[2021-09-14] MEDS: METHYLDOPA 250 MG TABLET PO SCH (08:57)
[2021-09-14] MEDS: HYDRALAZINE HCL 25 MG TABLET PO SCH ×3 (08:57→21:37)
[2021-09-14] MEDS: SODIUM CHLORIDE 1 GM TAB PO SCH ×5 (08:57→21:38)
--- NOTE | 2021-09-14 09:00 | P.PN ---
Subjective Date of Service: 09/14/21 Chief Complaint: Severe hyponatremia Subjective: No new changes Physical Examination - Vital Signs Temperature: 97.4 F Blood Pressure: 136/63 Pulse: 74 Respirations: 16 Pulse Ox (%): 95 - Physical Exam General: Alert, Oriented x3 HEENT: Atraumatic, Normocephalic Neck: Supple Respiratory: Clear to auscultation bilaterally, Normal air movement Cardiovascular: Regular rate/rhythm, Normal S1 S2 Gastrointestinal: Soft and benign Musculoskeletal: No swelling Neurological: Normal speech, Normal strength at 5/5 x4 extr - Studies Medications List Reviewed: Yes Assessment And Plan - Plan 1. Hyponatremia: Serum sodium is better at 124 today. We will continue patient on salt tablet at 1 g 4 times daily and monitor her sodium level daily for now. we will monitor symptomatology. 2.Seizures: we will continue antiseizure meds.
--- NOTE | 2021-09-14 14:20 | P.PN ---
Subjective Date of Service: 09/14/21 Chief Complaint: Severe hyponatremia Subjective: Improving SHE IS TALKING, MAKING SENSE TODAY. HAS NO ACUTE COMPLAINTS. WILL DO PT. DR SENA CALLED ME ABOUT NODULE ON LUNGS BUT NONE OF X RAYS SHOW IT. I DID CT CHEST AND THAT DOES NO SHOW NODULE. SHE IS CONFUSED BUT AWAKE. SHE HAS NO ACUTE COMPLAINTS. NOT WALKING YET. SHE IS MUCH MORE AWAKE. SHE TALKED WELL TODAY. Physical Examination - Vital Signs Temperature: 97.4 F Blood Pressure: 123/56 Pulse: 69 Respirations: 16 Pulse Ox (%): 98 - Physical Exam General: Mild distress HEENT: Atraumatic, PERRLA, EOMI Neck: Supple, JVD not distended Respiratory: Clear to auscultation bilaterally, Normal air movement Cardiovascular: Regular rate/rhythm, Normal S1 S2 Gastrointestinal: Normal bowel sounds, No tenderness Musculoskeletal: No tenderness Integumentary: No rashes Neurological: Normal speech, Normal tone, Normal affect Lymphatics: No axilla or inguinal lymphadenopathy - Studies Medications List Reviewed: Yes Assessment And Plan - Current Problems (Diagnosis) (1) HTN (hypertension) Current Visit: No Status: Chronic Plan: USUALLY SHE HAS VERY DIFFICULT TO CONTROL BP WHEN SHE IS NOT DEHYDRATED LIKE THIS TIME. DEHYDRATION IS FROM DIARRHEA AND EDARBICLOR. WE STOPPED THE MEDICINE. SHE IN PAST HAS NOT TOLERATED MANY MEDS. SHE HAS ISSUES WITH B [employer] CH[employer] BLOCKERS, [employer]VASC GIVES HER EDEMA. OTHER ROBIN BLOCKERS GAVE BRADYCARDIA. LOSARTAN AND OTHER ANGI AND ARB DID NOT WORK. SHE HAS BEEN ON ALDOMET FOR MANY YEARS AND WORKED WELL FOR HER. RESTART HYDRALAZINE. WILL REDUCE NORVASC TO 2.5 MG SHE COULD NOT TAKE 5 MG. (2) Hyponatremia Current Visit: No Status: Acute Plan: TALKED TO DAUGHTER TODAY AND ON DAY OF ADMISSION. SIADH IS ETIOLOGY DR. CARDOZA AGREES. FLUID RESTRICTION STARTED. CALLED DAUGHTER TO DISCUSS AGAIN. SOD 124 CONTINUE THERAPY. (3) Seizure disorder Current Visit: No Status: Chronic Plan: PER DAUGHTER SHE DOES NOT HAVE THIS. YEARS AGO WHEN AT HIGH ALTITUDE SHE PASSED OUT AND THE LOCAL DOCTOR PUT HER ON PHENOBARBITAL. SHE NEVER GOT OFF AFTER THAT. DAUGHTER IS REQUESTING AND I AGREE THAT WE CAN STOP IT THERE IS NO DOCUMENTED SEIZURE IN THE PAST.
[2021-09-14] MEDS: ENOXAPARIN 40 MG/0.4 ML SQ SCH (17:00)
[2021-09-14] MEDS: AMLODIPINE 5 MG TAB PO SCH (21:37)
[2021-09-15 06:05] LABS: Absolute Lymphocytes (CBC) 1.1 K/uL (0.7-4.9); Hematocrit 31.1 % (36.0-45.0); Lymphocytes % 9.6 % (15.3-44.8); MPV 8.4 fL (7.6-11.3); RBC Red Blood Cell Count 3.53 M/uL (3.86-4.86)
[2021-09-15 06:14] LABS: Potassium 4.1 mmol/L (3.5-5.1)
[2021-09-15] MEDS: METHYLDOPA 250 MG TABLET PO SCH (08:52)
[2021-09-15] MEDS: HYDRALAZINE HCL 25 MG TABLET PO SCH ×4 (08:53→21:32)
[2021-09-15] MEDS: SODIUM CHLORIDE 1 GM TAB PO SCH ×4 (08:54→21:00)
--- NOTE | 2021-09-15 10:28 | P.PN ---
Subjective Date of Service: 09/15/21 Chief Complaint: Severe hyponatremia Subjective: Improving SHE IS LOT BETTER. SHE HAS NO PAIN . MUCH MORE ORIENTED. STILL SAID 1923 ABOUT YEAR. Review of Systems 10-point ROS is otherwise unremarkable General: Weakness Physical Examination - Vital Signs Temperature: 97.0 F Blood Pressure: 154/74 Pulse: 89 Respirations: 16 Pulse Ox (%): 97 - Physical Exam General: Oriented x2, Mild distress HEENT: Atraumatic, PERRLA, EOMI Neck: Supple, JVD not distended Respiratory: Clear to auscultation bilaterally, Normal air movement Cardiovascular: Regular rate/rhythm, Normal S1 S2 Gastrointestinal: Normal bowel sounds, No tenderness Musculoskeletal: No tenderness Integumentary: No rashes Neurological: Normal speech, Normal tone, Normal affect Lymphatics: No axilla or inguinal lymphadenopathy - Studies Medications List Reviewed: Yes Assessment And Plan - Current Problems (Diagnosis) (1) HTN (hypertension) Current Visit: No Status: Chronic Plan: USUALLY SHE HAS VERY DIFFICULT TO CONTROL BP WHEN SHE IS NOT DEHYDRATED LIKE THIS TIME. DEHYDRATION IS FROM DIARRHEA AND EDARBICLOR. WE STOPPED THE MEDICINE. SHE IN PAST HAS NOT TOLERATED MANY MEDS. SHE HAS ISSUES WITH B [employer] CHANNEL BLOCKERS, [employer]VASC GIVES HER EDEMA. OTHER ROBIN BLOCKERS GAVE BRADYCARDIA. LOSARTAN AND OTHER ANGI AND ARB DID NOT WORK. SHE HAS BEEN ON ALDOMET FOR MANY YEARS AND WORKED WELL FOR HER. RESTART HYDRALAZINE. WILL REDUCE NORVASC TO 2.5 MG SHE COULD NOT TAKE 5 MG. (2) Hyponatremia Current Visit: No Status: Acute Plan: SODIUM IS 125 TODAY. COMING UP SLOWLY SHE NEEDS TO WALK WELL SO SHE CAN GO HOME IN AM. (3) Seizure disorder Current Visit: No Status: Chronic Plan: PER DAUGHTER SHE DOES NOT HAVE THIS. YEARS AGO WHEN AT HIGH ALTITUDE SHE PASSED OUT AND THE LOCAL DOCTOR PUT HER ON PHENOBARBITAL. SHE NEVER GOT OFF AFTER THAT. DAUGHTER IS REQUESTING AND I AGREE THAT WE CAN STOP IT THERE IS NO DOCUMENTED SEIZURE IN THE PAST.
[2021-09-15] MEDS: ENOXAPARIN 40 MG/0.4 ML SQ SCH (17:26)
[2021-09-15] MEDS: AMLODIPINE 5 MG TAB PO SCH (21:31)
[2021-09-16 06:11] LABS: Absolute Lymphocytes (CBC) 1.1 K/uL (0.7-4.9); Hematocrit 28.9 % (36.0-45.0); MPV 8.2 fL (7.6-11.3); RBC Red Blood Cell Count 3.29 M/uL (3.86-4.86)
[2021-09-16 06:14] LABS: Potassium 4.3 mmol/L (3.5-5.1)
--- NOTE | 2021-09-16 08:25 | P.PN ---
Subjective Date of Service: 09/15/21 Chief Complaint: Severe hyponatremia Subjective: No new changes Physical Examination - Vital Signs Temperature: 97.7 F Blood Pressure: 106/52 Pulse: 85 Respirations: 18 Pulse Ox (%): 98 - Studies Medications List Reviewed: Yes Assessment And Plan Physician Review: Patient Assessed, Agree with Above Assessment and Plan Physician Review Additional Text: General - Obese , elderly female , drowsy Heent -vanessa,eomi Neck -no JVD, no bruit Resp - clest lung , diminshed bases CV -sis2, rrr GI- full, soft abd , BS + HIMANSHU- no pedal edema b/l Neuro - drowsy , confused A/P Hyponatremia-improving to 127 -c/w salt tabs -c/w fluid restriction to , 1.5L/day HTN -continue regime
--- NOTE | 2021-09-16 08:27 | P.PN ---
Subjective Date of Service: 09/16/21 Chief Complaint: Severe hyponatremia Subjective: No new changes Physical Examination - Vital Signs Temperature: 97.7 F Blood Pressure: 106/52 Pulse: 85 Respirations: 18 Pulse Ox (%): 98 - Studies Medications List Reviewed: Yes Assessment And Plan Physician Review: Patient Assessed, Agree with Above Assessment and Plan Physician Review Additional Text: General - Obese , elderly female , drowsy Heent -vanessa,eomi Neck -no JVD, no bruit Resp - clest lung , diminshed bases CV -sis2, rrr GI- full, soft abd , BS + HIMANSHU- no pedal edema b/l Neuro - drowsy , confused A/P Hyponatremia-follow repeat labs today prior improving to 127 - since controlled BP and bordelrine low now , dose NS at 50cc/hr for 24 hrs -adjust salt tab to 2 g tid -c/w oral fluid restriction to < 1.5L/day HTN -continue regime-hydralazine/Norvasc Time Spent Managing PTS Care (In Minutes): 35
[2021-09-16] MEDS ORDERED: NA CHLORIDE 0.9% 1,000 ML IV SCH (09:00)
[2021-09-16] MEDS: SODIUM CHLORIDE 1 GM TAB PO SCH ×4 (09:00→20:33)
[2021-09-16] MEDS: METHYLDOPA 250 MG TABLET PO SCH (09:44)
[2021-09-16] MEDS: HYDRALAZINE HCL 25 MG TABLET PO SCH ×3 (09:44→20:33)
[2021-09-16] MEDS: THIAMINE 200 MG/2 ML INJ IVP SCH (11:00)
--- NOTE | 2021-09-16 11:29 | RAD REPORT ---
EXAM DESCRIPTION: RAD - Chest Single View - 09/16/2021 11:07 am CLINICAL HISTORY: DYSPNEA, FOLLOW UP COMPARISON: Portable 08/10/2021, two view chest 07/25/2021 TECHNIQUE: AP portable chest image was obtained 09/16/2021 11:07 am . FINDINGS: Chronic interstitial opacification is present. This could mask minimal interstitial edema or infiltrate. However, exam is not significantly different from the August 10 study. Heart and vasculature are normal. No measurable pleural effusion and no pneumothorax. No acute bony abnormality seen. No acute aortic findings suspected. IMPRESSION: Chronic interstitial opacification similar to prior imaging. No new or progressive lung parenchymal process.
--- NOTE | 2021-09-16 11:36 | P.PN ---
Subjective Date of Service: 09/16/21 Chief Complaint: CONFUSION TODAY. Subjective: C/O voiced SHE IS DEPRESSED TODAY. SHE SAYS SHE IS DYING. SHE DOES NOT WANT TO EAT OR TAKE MEDS. AFTER I TALKED TO HER SHE LET NURSE DO IV FLUIDS. NO OTHER ACUTE SYMPTOMS. Review of Systems 10-point ROS is otherwise unremarkable General: Weakness Neurological: Confusion Physical Examination - Vital Signs Temperature: 97.7 F Blood Pressure: 106/52 Pulse: 85 Respirations: 18 Pulse Ox (%): 98 - Physical Exam General: Oriented x1, Mild distress HEENT: Atraumatic, PERRLA, EOMI Neck: Supple, JVD not distended Respiratory: Clear to auscultation bilaterally, Normal air movement Cardiovascular: Regular rate/rhythm, Normal S1 S2 Gastrointestinal: Normal bowel sounds, No tenderness Musculoskeletal: No tenderness Integumentary: No rashes Neurological: Normal strength at 5/5 x4 extr, Other (NOT COOPERATING TODAY. NOT ORIENTED TO TIME,PLACE. ) Lymphatics: No axilla or inguinal lymphadenopathy - Studies Medications List Reviewed: Yes Assessment And Plan - Current Problems (Diagnosis) (1) HTN (hypertension) Current Visit: No Status: Chronic Plan: USUALLY SHE HAS VERY DIFFICULT TO CONTROL BP WHEN SHE IS NOT DEHYDRATED LIKE TH IS TIME. DEHYDRATION IS FROM DIARRHEA AND EDARBICLOR. WE STOPPED THE MEDICINE. SHE IN PAST HAS NOT TOLERATED MANY MEDS. SHE HAS ISSUES WITH B [employer] CH[employer] BLOCKERS, [employer]ASC GIVES HER EDEMA. OTHER ROBIN BLOCKERS GAVE BRADYCARDIA. LOSARTAN AND OTHER ANGI AND ARB DID NOT WORK. SHE HAS BEEN ON ALDOMET FOR MANY YEARS AND WORKED WELL FOR HER. RESTART HYDRALAZINE. WILL REDUCE NORVASC TO 2.5 MG SHE COULD NOT TAKE 5 MG. (2) Hyponatremia Current Visit: No Status: Acute Plan: SODIUM IS 125 TODAY. COMING UP SLOWLY SHE NEEDS TO WALK WELL SO SHE CAN GO HOME IN AM. IMPROVMENT IS SLOW WE NEED TO. TODAY 127 MILD LOWNORMAL BP GENTLE IV HYDRATION. (3) Seizure disorder Current Visit: No Status: Chronic Plan: PER DAUGHTER SHE DOES NOT HAVE THIS. YEARS AGO WHEN AT HIGH ALTITUDE SHE PASSED OUT AND THE LOCAL DOCTOR PUT HER ON PHENOBARBITAL. SHE NEVER GOT OFF AFTER THAT. DAUGHTER IS REQUESTING AND I AGREE THAT WE CAN STOP IT THERE IS NO DOCUMENTED SEIZURE IN THE PAST. (4) Altered mental status Current Visit: No Status: Acute Plan: CT BRAIN IF SHE WILL ALLOW PER DAUGHTER SHE HAD NO SEIZURES BUT I AM NOT SURE IF THIS IS AN ATYPICAL SEIZURE. INSTEAD OF PHENOBARBATAL I WILL PUT HE RBACK ON KEPPRA. Physician Review: Patient Assessed, Agree with Above Assessment and Plan Physician Review Additional Text: General - Obese , elderly female , drowsy Heent -vanessa,eomi Neck -no JVD, no bruit Resp - clest lung , diminshed bases CV -sis2, rrr GI- full, soft abd , BS + HIMANSHU- no pedal edema b/l Neuro - drowsy , confused A/P Hyponatremia-follow repeat labs today prior improving to 127 - since controlled BP and bordelrine low now , dose NS at 50cc/hr for 24 hrs -adjust salt tab to 2 g tid -c/w oral fluid restriction to < 1.5L/day HTN -continue regime-hydralazine/Norvasc
[2021-09-16] MEDS: levETIRAcetam 500 MG TAB PO SCH ×2 (13:00→20:33)
[2021-09-16] MEDS: ENOXAPARIN 40 MG/0.4 ML SQ SCH (18:00)
[2021-09-16 18:51] LABS: Urine Appearance CLOUDY (Clear); Urine Bilirubin NEGATIVE (Negative); Urine Blood NEGATIVE (Negative); Urine Color YELLOW (Yellow); Urine Glucose NEGATIVE (Negative); Urine Protein TRACE (Negative); Urine Specific Gravity 1.015 (1.005-1.030); Urine Urobilinogen 0.2 mg/dL (0.2-1.0)
[2021-09-16 19:03] LABS: Urine Bacteria >50 /HPF (<20); Urine RBC NONE SEEN /HPF (NONE SEEN)
[2021-09-16] MEDS: CIPROFLOXACIN HCL 250 MG TAB PO SCH (22:35)
[2021-09-17 06:10] LABS: Absolute Lymphocytes (CBC) 0.9 K/uL (0.7-4.9); Hematocrit 27.8 % (36.0-45.0); Lymphocytes % 5.2 % (15.3-44.8); RBC Red Blood Cell Count 3.17 M/uL (3.86-4.86)
[2021-09-17 06:27] LABS: Albumin 2.2 g/dL (3.4-5.0); Bilirubin Total 0.3 mg/dL (0.2-1.0); Potassium 3.9 mmol/L (3.5-5.1); Protein, Total 6.5 g/dL (6.4-8.2)
[2021-09-17] MEDS: HYDRALAZINE HCL 25 MG TABLET PO SCH ×3 (08:45→21:35)
[2021-09-17] MEDS: CIPROFLOXACIN HCL 250 MG TAB PO SCH ×2 (08:47→21:35)
[2021-09-17] MEDS: METHYLDOPA 250 MG TABLET PO SCH (08:47)
[2021-09-17] MEDS: APIXABAN 5 MG TABLET PO SCH ×2 (08:47→21:35)
[2021-09-17] MEDS: levETIRAcetam 500 MG TAB PO SCH ×2 (08:48→21:35)
[2021-09-17] MEDS: THIAMINE 200 MG/2 ML INJ IVP SCH (08:50)
[2021-09-17] MEDS: SODIUM CHLORIDE 1 GM TAB PO SCH ×3 (08:58→21:00)
[2021-09-17] MEDS ORDERED: VERAPAMIL SR 180 MG TAB PO SCH (09:00)
--- NOTE | 2021-09-17 13:05 | P.PN ---
Subjective Date of Service: 09/17/21 Chief Complaint: CONFUSION TODAY. Subjective: Improving SHE IS DEPRESSED TODAY. SHE SAYS SHE IS DYING. SHE DOES NOT WANT TO EAT OR TAKE MEDS. AFTER I TALKED TO HER SHE LET NURSE DO IV FLUIDS. NO OTHER ACUTE SYMPTOMS. YESTERDAY NURSE CALLED ME THAT SHE WOKE UP AND ATE WELL, APOLOGIZED FOR BEING SLUGGISH IN AM. SAME THIS AM SHE IS TAKING TIME TO WAKE UP. SHE HAS NO FEVER, OR CHILLS. Physical Examination - Vital Signs Temperature: 97.8 F Blood Pressure: 129/63 Pulse: 71 Respirations: 16 Pulse Ox (%): 96 - Physical Exam General: Oriented x2, Mild distress, Confused HEENT: Atraumatic, PERRLA, EOMI Neck: Supple, JVD not distended Respiratory: Clear to auscultation bilaterally, Normal air movement Cardiovascular: Regular rate/rhythm, Normal S1 S2 Gastrointestinal: Normal bowel sounds, No tenderness Musculoskeletal: No tenderness Integumentary: No rashes Neurological: Normal speech, Normal tone, Normal affect Lymphatics: No axilla or inguinal lymphadenopathy - Studies Medications List Reviewed: Yes Assessment And Plan - Current Problems (Diagnosis) (1) HTN (hypertension) Current Visit: No Status: Chronic Plan: USUALLY SHE HAS VERY DIFFICULT TO CONTROL BP WHEN SHE IS NOT DEHYDRATED LIKE THIS TIME. DEHYDRATION IS FROM DIARRHEA AND EDARBICLOR. WE STOPPED THE MEDICINE. SHE IN PAST HAS NOT TOLERATED MANY MEDS. SHE HAS ISSUES WITH B [employer] CH[employer] BLOCKERS, [employer]VASC GIVES HER EDEMA. OTHER ROBIN BLOCKERS GAVE BRADYCARDIA. LOSARTAN AND OTHER ANGI AND ARB DID NOT WORK. SHE HAS BEEN ON ALDOMET FOR MANY YEARS AND WORKED WELL FOR HER. RESTART HYDRALAZINE. WILL REDUCE NORVASC TO 2.5 MG SHE COULD NOT TAKE 5 MG. (2) Hyponatremia Current Visit: No Status: Acute Plan: SODIUM IS 125 TODAY. COMING UP SLOWLY SHE NEEDS TO WALK WELL SO SHE CAN GO HOME IN AM. IMPROVMENT IS SLOW WE NEED TO. TODAY 127 MILD LOWNORMAL BP GENTLE IV HYDRATION. (3) Seizure disorder Current Visit: No Status: Chronic Plan: PER DAUGHTER SHE DOES NOT HAVE THIS. YEARS AGO WHEN AT HIGH ALTITUDE SHE PASSED OUT AND THE LOCAL DOCTOR PUT HER ON PHENOBARBITAL. SHE NEVER GOT OFF AFTER THAT. DAUGHTER IS REQUESTING AND I AGREE THAT WE CAN STOP IT THERE IS NO DOCUMENTED SEIZURE IN THE PAST. (4) Altered mental status Current Visit: No Status: Acute Plan: CT BRAIN IF SHE WILL ALLOW PER DAUGHTER SHE HAD NO SEIZURES BUT I AM NOT SURE IF THIS IS AN ATYPICAL SEIZURE. INSTEAD OF PHENOBARBATAL I WILL PUT HE RBACK ON KEPPRA. SHE MAY HAVE ATYPICAL SEIZURES. AT THE SAME TIME SHE HAD CURRY AND UTI CAN'T BE RULED OUT. CULTURE PENDING. WE NEED SPECICATH SAMPLE SHE MAY HAVE COLONIZED BACTERIA FROM HAVING CURRY BUT ALSO HAS MILD WBC ELEVATION (5) UTI (urinary tract infection) Current Visit: Yes Status: Acute Plan: POSSIBLE. CULTURE PENDING WBC IS 16K STARTED CIPRO YESTERDAY. WILL FU DAILY LAB. Physician Review: Patient Assessed, Agree with Above Assessment and Plan Physician Review Additional Text: General - Obese , elderly female , drowsy Heent -vanessa,eomi Neck -no JVD, no bruit Resp - clest lung , diminshed bases CV -sis2, rrr GI- full, soft abd , BS + HIMANSHU- no pedal edema b/l Neuro - drowsy , confused A/P Hyponatremia-follow repeat labs today prior improving to 127 - since controlled BP and bordelrine low now , dose NS at 50cc/hr for 24 hrs -adjust salt tab to 2 g tid -c/w oral fluid restriction to < 1.5L/day HTN -continue regime-hydralazine/Norvasc
--- NOTE | 2021-09-17 13:17 | P.PN ---
Subjective Date of Service: 09/17/21 Chief Complaint: CONFUSION TODAY. Subjective: No new changes (daughter in room d/w less responsive today) Physical Examination - Vital Signs Temperature: 97.8 F Blood Pressure: 129/63 Pulse: 71 Respirations: 16 Pulse Ox (%): 96 - Physical Exam General: Confused, Delirious HEENT: Atraumatic, Normocephalic, PERRLA, Other Neck: 2+ carotid pulse no bruit, JVD not distended Respiratory: Clear to auscultation bilaterally, Normal air movement Cardiovascular: No edema, Normal pulses, Regular rate/rhythm Gastrointestinal: Normal bowel sounds, Soft and benign, Non-distended Musculoskeletal: No clubbing, No swelling Neurological: Other (pin rolling tremors ), Abnormal speech, Abnormal strength - Studies Medications List Reviewed: Yes Assessment And Plan Physician Review: Patient Assessed, Agree with Above Assessment and Plan Physician Review Additional Text: General - Obese , elderly female , drowsy Heent -vanessa,eomi Neck -no JVD, no bruit Resp - clest lung , diminshed bases CV -sis2, rrr GI- full, soft abd , BS + HIMANSHU- no pedal edema b/l Neuro - drowsy , confused ,pin rolling tremors A/P Hyponatremia-improving to 129 -continue salt tabs until 130 or higher - since controlled BP ,c/w oral fluid restriction to < 1.5L/day -Daughter d/w HTN -controlled ,continue regime-hydralazine/Norvasc Encephalopathy -consider Ritalin Recent leg skin cancer -s/p resection , follow with wound care
[2021-09-18 05:56] LABS: Absolute Lymphocytes (CBC) 1.1 K/uL (0.7-4.9); Hematocrit 29.8 % (36.0-45.0); Lymphocytes % 6.6 % (15.3-44.8); MPV 8.6 fL (7.6-11.3); RBC Red Blood Cell Count 3.38 M/uL (3.86-4.86)
[2021-09-18 06:34] LABS: Albumin 2.2 g/dL (3.4-5.0); Bilirubin Total 0.4 mg/dL (0.2-1.0); Protein, Total 6.9 g/dL (6.4-8.2)
[2021-09-18 06:36] LABS: Potassium 4.5 mmol/L (3.5-5.1)
[2021-09-18] MEDS: SOTALOL HCL 80 MG TAB PO SCH ×3 (06:53→22:03)
[2021-09-18 07:14] LABS: Blood Morphology Comment NOT SEEN (NOT SEEN); Platelet Estimate INCR
[2021-09-18] MEDS: SODIUM CHLORIDE 1 GM TAB PO SCH ×3 (09:00→21:00)
[2021-09-18] MEDS: HYDRALAZINE HCL 25 MG TABLET PO SCH ×3 (09:00→22:02)
--- NOTE | 2021-09-18 09:22 | PN ---
Date of Progress Note: 09/18/2021 Ms. Wharton is 85, had been in the hospital for altered mental status and hyponatremia, admitted by Dr. Frost, was seen for paroxysmal atrial fibrillation intolerant to beta-erica. She is on Eliquis. She is on hydralazine, Aldomet, clonidine, phenobarbital, Norvasc, aspirin and Edarbi. I recommended that we can use digoxin 0.25 mg daily for her atrial fibrillation. This morning, she has not had an y more atrial fibrillation overnight. She is not having any specific complaint. I will continue her present regimen. Add digoxin 0.25 mg daily. I will sign off her case for now. I will discuss the case further with Dr. Frost. WANDA/NORA Voice ID: [id number] Report ID: [id number]
[2021-09-18] MEDS: CIPROFLOXACIN HCL 250 MG TAB PO SCH (09:27)
[2021-09-18] MEDS: APIXABAN 5 MG TABLET PO SCH ×2 (09:27→22:03)
[2021-09-18] MEDS: METHYLDOPA 250 MG TABLET PO SCH (09:28)
[2021-09-18] MEDS: levETIRAcetam 500 MG TAB PO SCH ×2 (09:29→22:02)
[2021-09-18] MEDS: THIAMINE 200 MG/2 ML INJ IVP SCH (09:29)
--- NOTE | 2021-09-18 09:37 | CON ---
Date of Consultation: 09/17/2021 Reason For Consultation: Admitted to Dr. Frost on 09/11/2021 with altered mental status and hyponatr emia. I am seeing the patient on 09/17/2021 for atrial fibrillation that is paroxysmal, intolerant t o beta-blockers. History Of Present Illness: Ms. Wharton is 85, has a history of seizure disorder, hypertension, who ca me in with altered mental status and hyponatremia. Has been having paroxysmal atrial fibrillation wi thout any cardiac complaint. Today, she is in sinus rhythm. She is intolerant to beta-erica. She denied any chest pain, nausea, vomiting, diaphoresis, PND, orthopnea, pedal edema, palpitation, or s yncope. Denied any fever or chills. Past Medical History: As stated above. Allergies: SHE IS ALLERGIC TO DILANTIN, LATEX, AND CEPHALEXIN. Review of Systems: Negative. Social History: Negative. Family History: Noncontributory. Medications: At home include clonidine, phenobarbital, Norvasc, aspirin, Edarbi, hydralazine and Ald omet. Physical Examination: General: She was obtunded. No specific complaint. Vital Signs: Stable. She was in a sinus rhythm. HEENT: Negative. Neck: Supple with no bruit. Chest: Clear. Cardiac: Revealed a regular rhythm and rate. No murmurs, gallops, or rubs. Abdomen: Benign. Extremities: Revealed no clubbing, cyanosis, or edema. Diagnostic Data: Showed a white count of 10,000, hemoglobin 9.54. Sodium of 129. Impression And Plan: Paroxysmal atrial fibrillation. She is on Eliquis. I agree with her present m edical regimen. Avoid beta-erica. Start digoxin 0.25 mg daily. Otherwise, I do not recommend any further cardiac workup. Her blood pressure is well controlled. Her seizure is well controlled. He r hyponatremia and altered mental status are being handled by Dr. Frost. I will continue to follow h er as needed. WANDA/MODL Voice ID: [id number] Report ID: [id number]
[2021-09-18] MEDS ORDERED: CEFTRIAXONE 1000 MG/VIAL ONE (12:30)
[2021-09-18] MEDS ORDERED: NA CHLORIDE 0.9% 50 ML ONE (12:35)
[2021-09-18] MEDS: CEFTRIAXONE 1,000 MG in NA CHLORIDE 0.9% 50 ML IVPB SCH (12:40)
--- NOTE | 2021-09-18 13:03 | P.PN ---
Subjective Date of Service: 09/18/21 Chief Complaint: CONFUSION TODAY. Subjective: No new changes (No new issues today, still poorly conversant) Physical Examination - Vital Signs Temperature: 97.2 F Blood Pressure: 164/72 Pulse: 85 Respirations: 18 Pulse Ox (%): 96 - Studies Medications List Reviewed: Yes Assessment And Plan Physician Review: Patient Assessed, Agree with Above Assessment and Plan Physician Review Additional Text: General - Obese , elderly female , drowsy Heent -vanessa,eomi Neck -no JVD, no bruit Resp - clest lung , diminshed bases CV -sis2, rrr GI- full, soft abd , BS + HIMANSHU- no pedal edema b/l Neuro - drowsy , confused ,pin rolling tremors A/P Hyponatremia-improving to 135 -c/w salt tabs at discharge -Borderline fluid overload, if hypoxia, start low-dose Lasix Continue oral fluids intake to less than 1.5 L/day HTN -controlled ,continue regime-hydralazine/Norvasc Encephalopathy -consider Ritalin Suspected underlying dementia Recent leg skin cancer -s/p resection , follow with wound care
[2021-09-18] MEDS: VENLAFAXINE HCL XR 37.5MG CAP PO SCH (14:34)
[2021-09-18] MEDS: ENSURE HIGH PROTEIN 237 ML CAN PO SCH (21:00)
--- NOTE | 2021-09-18 21:06 | P.PN ---
Subjective Date of Service: 09/18/21 Chief Complaint: AWAKE BUT VERBAL RESPONSE IS SLOW. Subjective: No C/O voiced SHE IS DEPRESSED TODAY. SHE SAYS SHE IS DYING. SHE DOES NOT WANT TO EAT OR TAKE MEDS. AFTER I TALKED TO HER SHE LET NURSE DO IV FLUIDS. NO OTHER ACUTE SYMPTOMS. YESTERDAY NURSE CALLED ME THAT SHE WOKE UP AND ATE WELL, APOLOGIZED FOR BEING SLUGGISH IN AM. SAME THIS AM SHE IS TAKING TIME TO WAKE UP. SHE HAS NO FEVER, OR CHILLS. SHE IS ALMOST CATATONIC IN THE WAY SHE RESPONDS. THIS IS NOT USUAL SHE IS USUALLY VERY UPBEAT. I TALKED TO DAUGHTER AGAIN. Review of Systems 10-point ROS is otherwise unremarkable General: Weakness, Malaise Physical Examination - Vital Signs Temperature: 96.5 F Blood Pressure: 132/65 Pulse: 62 Respirations: 15 Pulse Ox (%): 98 - Physical Exam General: Oriented x2, Confused (RESPONDS TO VERBAL COMMAND BUT SLOW. DID RECOGNIZE ME. ) HEENT: Atraumatic, PERRLA, EOMI Neck: Supple, JVD not distended Respiratory: Clear to auscultation bilaterally, Normal air movement Cardiovascular: Regular rate/rhythm, Normal S1 S2 Gastrointestinal: Normal bowel sounds, No tenderness Musculoskeletal: No tenderness Integumentary: No rashes Neurological: Abnormal speech (SLOW, MASK LIKE), Abnormal strength (GEN WEAK. MOVES ALL FOUR LIMBS.) Lymphatics: No axilla or inguinal lymphadenopathy - Studies Medications List Reviewed: Yes Assessment And Plan - Current Problems (Diagnosis) (1) HTN (hypertension) Current Visit: No Status: Chronic Plan: USUALLY SHE HAS VERY DIFFICULT TO CONTROL BP WHEN SHE IS NOT DEHYDRATED LIKE THIS TIME. DEHYDRATION IS FROM DIARRHEA AND EDARBICLOR. WE STOPPED THE MEDICINE. SHE IN PAST HAS NOT TOLERATED MANY MEDS. SHE HAS ISSUES WITH B [employer] CHANNEL BLOCKERS, NORVASC GIVES HER EDEMA. OTHER ROBIN BLOCKERS GAVE BRADYCARDIA. LOSARTAN AND OTHER ANGI AND ARB DID NOT WORK. SHE HAS BEEN ON ALDOMET FOR MANY YEARS AND WORKED WELL FOR HER. RESTART HYDRALAZINE. WILL REDUCE NORVASC TO 2.5 MG SHE COULD NOT TAKE 5 MG. Qualifiers: Hypertension type: primary hypertension Qualified Code(s): I10 - Essential (primary) hypertension (2) Hyponatremia Current Visit: No Status: Acute Plan: SODIUM IS 125 TODAY. COMING UP SLOWLY SHE NEEDS TO WALK WELL SO SHE CAN GO HOME IN AM. IMPROVMENT IS SLOW WE NEED TO. TODAY 127 MILD LOWNORMAL BP GENTLE IV HYDRATION. (3) Seizure disorder Current Visit: No Status: Chronic Plan: PER DAUGHTER SHE DOES NOT HAVE THIS. YEARS AGO WHEN AT HIGH ALTITUDE SHE PASSED OUT AND THE LOCAL DOCTOR PUT HER ON PHENOBARBITAL. SHE NEVER GOT OFF AFTER THAT. DAUGHTER IS REQUESTING AND I AGREE THAT WE CAN STOP IT THERE IS NO DOCUMENTED SEIZURE IN THE PAST. (4) Altered mental status Current Visit: No Status: Acute Plan: CT BRAIN IF SHE WILL ALLOW PER DAUGHTER SHE HAD NO SEIZURES BUT I AM NOT SURE IF THIS IS AN ATYPICAL SEIZURE. INSTEAD OF PHENOBARBATAL I WILL PUT HE OLIVIA ON KEPPRA. SHE MAY HAVE ATYPICAL SEIZURES. AT THE SAME TIME SHE HAD CURRY AND UTI CAN'T BE RULED OUT. CULTURE PENDING. WE NEED SPECICATH SAMPLE SHE MAY HAVE COLONIZED BACTERIA FROM HAVING CURRY BUT ALSO HAS MILD WBC ELEVATION (5) UTI (urinary tract infection) Current Visit: Yes Status: Acute Plan: POSSIBLE. CULTURE PENDING WBC IS 16K STARTED CIPRO YESTERDAY. WILL FU DAILY LAB. CIPRO DCED IT WILL INTERACE WITH BETAPACE STARTED TODAY. ROCEPHIN UNTIL ORAL INTAKE IS PROPER WBC LWER THAN YESTERDAY. CIPRO IS WORKING BUT INTERACTS NOW. (6) Rapid atrial fibrillation Current Visit: Yes Status: Acute Plan: NEW THIS AM. STARTED SOTALOL ALREADY ON ELIQUIS WILL STOP VERAPAMIL. WATCH BP. SH IS BACK IN SINUS RHYTHM THIS AFTERNOON. Physician Review: Patient Assessed, Agree with Above Assessment and Plan Physician Review Additional Text: General - Obese , elderly female , drowsy Heent -vanessa,eomi Neck -no JVD, no bruit Resp - clest lung , diminshed bases CV -sis2, rrr GI- full, soft abd , BS + HIMANSHU- no pedal edema b/l Neuro - drowsy , confused ,pin rolling tremors A/P Hyponatremia-improving to 135 -c/w salt tabs at discharge -Borderline fluid overload, if hypoxia, start low-dose Lasix Continue oral fluids intake to less than 1.5 L/day HTN -controlled ,continue regime-hydralazine/Norvasc Encephalopathy -consider Ritalin Suspected underlying dementia Recent leg skin cancer -s/p resection , follow with wound care
[2021-09-19 05:46] LABS: Albumin 2.3 g/dL (3.4-5.0); Bilirubin Total 0.3 mg/dL (0.2-1.0)
[2021-09-19 05:48] LABS: Absolute Lymphocytes (CBC) 1.4 K/uL (0.7-4.9); Hematocrit 28.6 % (36.0-45.0); Lymphocytes % 9.3 % (15.3-44.8); MPV 8.1 fL (7.6-11.3); RBC Red Blood Cell Count 3.21 M/uL (3.86-4.86)
[2021-09-19] MEDS: SOTALOL HCL 80 MG TAB PO SCH ×2 (07:38→17:03)
[2021-09-19] MEDS: levETIRAcetam 500 MG TAB PO SCH ×2 (11:00→21:40)
[2021-09-19] MEDS: VENLAFAXINE HCL XR 37.5MG CAP PO SCH (11:00)
[2021-09-19] MEDS: APIXABAN 5 MG TABLET PO SCH ×2 (11:00→21:41)
[2021-09-19] MEDS: CEFTRIAXONE 1,000 MG in NA CHLORIDE 0.9% 50 ML IVPB SCH (11:00)
[2021-09-19] MEDS: HYDRALAZINE HCL 25 MG TABLET PO SCH ×3 (11:00→21:41)
[2021-09-19] MEDS: THIAMINE 200 MG/2 ML INJ IVP SCH (11:01)
[2021-09-19] MEDS: METHYLDOPA 250 MG TABLET PO SCH (11:36)
[2021-09-19] MEDS: ENSURE HIGH PROTEIN 237 ML CAN PO SCH ×2 (11:36→21:41)
--- NOTE | 2021-09-19 18:13 | P.PN ---
Subjective Date of Service: 09/19/21 Chief Complaint: LOT BETTER TODAY. Subjective: Improving SHE IS LOT BETTER. TODAY AWAKE, TALKING AND SMILING. THIS HAPPENED AFTER ONE DOSE OF VENLAFAXINE AND 3 DAYS OF KEPPRA. Review of Systems 10-point ROS is otherwise unremarkable Physical Examination - Vital Signs Temperature: 96.7 F Blood Pressure: 142/66 Pulse: 61 Respirations: 16 Pulse Ox (%): 96 - Physical Exam General: Alert, In no apparent distress HEENT: Atraumatic, PERRLA, EOMI Neck: Supple, JVD not distended Respiratory: Clear to auscultation bilaterally, Normal air movement Cardiovascular: Regular rate/rhythm, Normal S1 S2 Gastrointestinal: Normal bowel sounds, No tenderness Musculoskeletal: No tenderness Integumentary: No rashes Neurological: Normal speech, Normal tone, Normal affect Lymphatics: No axilla or inguinal lymphadenopathy - Studies Medications List Reviewed: Yes Assessment And Plan - Current Problems (Diagnosis) (1) HTN (hypertension) Current Visit: No Status: Chronic Plan: USUALLY SHE HAS VERY DIFFICULT TO CONTROL BP WHEN SHE IS NOT DEHYDRATED LIKE THIS TIME. DEHYDRATION IS FROM DIARRHEA AND EDARBICLOR. WE STOPPED THE MEDICINE. SHE IN PAST HAS NOT TOLERATED MANY MEDS. SHE HAS ISSUES WITH B [employer] CHANNEL BLOCKERS, NORVASC GIVES HER EDEMA. OTHER ROBIN BLOCKERS GAVE BRADYCARDIA. LOSARTAN AND OTHER ANGI AND ARB DID NOT WORK. SHE HAS BEEN ON ALDOMET FOR MANY YEARS AND WORKED WELL FOR HER. RESTART HYDRALAZINE. WILL REDUCE NORVASC TO 2.5 MG SHE COULD NOT TAKE 5 MG. ON NEW MEDS. LOT BETTER. Qualifiers: Hypertension type: primary hypertension Qualified Code(s): I10 - Essential (primary) hypertension (2) Hyponatremia Current Visit: No Status: Acute Plan: SODIUM IS 125 TODAY. COMING UP SLOWLY SHE NEEDS TO WALK WELL SO SHE CAN GO HOME IN AM. IMPROVMENT IS SLOW WE NEED TO. TODAY 127 MILD LOWNORMAL BP GENTLE IV HYDRATION. (3) Seizure disorder Current Visit: No Status: Chronic Plan: PER DAUGHTER SHE DOES NOT HAVE THIS. YEARS AGO WHEN AT HIGH ALTITUDE SHE PASSED OUT AND THE LOCAL DOCTOR PUT HER ON PHENOBARBITAL. SHE NEVER GOT OFF AFTER THAT. DAUGHTER IS REQUESTING AND I AGREE THAT WE CAN STOP IT THERE IS NO DOCUMENTED SEIZURE IN THE PAST. (4) Altered mental status Current Visit: No Status: Acute Plan: CATATONIC STATUS HAS CLEARED AFTER ONE DOSE OF VENLAFAXINE. SHE ALSO HAD CHANGE OF SEIZURE MEDS. I SUSPECTED PATIENTS CAN HAVE ABSENCE SEIZURES AND HAS A NONVERBAL PHASE. CONTINUE KEPPRA IT IS A VERY EASILY TOLERATED MED. (5) UTI (urinary tract infection) Current Visit: Yes Status: Acute Plan: POSSIBLE. CULTURE PENDING WBC IS 16K STARTED CIPRO YESTERDAY. WILL FU DAILY LAB. CIPRO DCED IT WILL INTERACE WITH BETAPACE STARTED TODAY. ROCEPHIN UNTIL ORAL INTAKE IS PROPER WBC LWER THAN YESTERDAY. CIPRO IS WORKING BUT INTERACTS NOW. (6) Rapid atrial fibrillation Current Visit: Yes Status: Acute Plan: NEW THIS AM. STARTED SOTALOL ALREADY ON ELIQUIS WILL STOP VERAPAMIL. WATCH BP. SH IS BACK IN SINUS RHYTHM THIS AFTERNOON. Physician Review: Patient Assessed, Agree with Above Assessment and Plan Physician Review Additional Text: General - Obese , elderly female , drowsy Heent -vanessa,eomi Neck -no JVD, no bruit Resp - clest lung , diminshed bases CV -sis2, rrr GI- full, soft abd , BS + HIMANSHU- no pedal edema b/l Neuro - drowsy , confused ,pin rolling tremors A/P Hyponatremia-improving to 135 -c/w salt tabs at discharge -Borderline fluid overload, if hypoxia, start low-dose Lasix Continue oral fluids intake to less than 1.5 L/day HTN -controlled ,continue regime-hydralazine/Norvasc Encephalopathy -consider Ritalin Suspected underlying dementia Recent leg skin cancer -s/p resection , follow with wound care
--- NOTE | 2021-09-19 19:03 | P.PN ---
Subjective Date of Service: 09/19/21 Chief Complaint: LOT BETTER TODAY. Subjective: No new changes, No C/O voiced Physical Examination - Vital Signs Temperature: 96.7 F Blood Pressure: 142/66 Pulse: 61 Respirations: 16 Pulse Ox (%): 96 - Studies Medications List Reviewed: Yes Assessment And Plan Physician Review: Patient Assessed, Agree with Above Assessment and Plan Physician Review Additional Text: General - Obese , elderly female , drowsy Heent -vanessa,eomi Neck -no JVD, no bruit Resp - clest lung , diminshed bases CV -sis2, rrr GI- full, soft abd , BS + HIMANSHU- no pedal edema b/l Neuro - drowsy , confused ,pin rolling tremors A/P Hyponatremia-improving -c/w salt tabs at discharge -Borderline fluid overload, c/w low-dose Lasix Continue oral fluids intake to less than 1.5 L/day HTN -controlled ,continue regime-hydralazine/Norvasc Encephalopathy -consider Ritalin Suspected underlying dementia Recent leg skin cancer -s/p resection , follow with wound care
[2021-09-20] MEDS: SOTALOL HCL 80 MG TAB PO SCH ×2 (05:13→18:00)
[2021-09-20 06:13] LABS: Albumin 2.2 g/dL (3.4-5.0); Bilirubin Total 0.4 mg/dL (0.2-1.0); Potassium 3.9 mmol/L (3.5-5.1); Protein, Total 6.8 g/dL (6.4-8.2)
[2021-09-20 07:36] LABS: Absolute Lymphocytes (CBC) 1.1 K/uL (0.7-4.9); Hematocrit 28.2 % (36.0-45.0); Lymphocytes % 6.8 % (15.3-44.8); MPV 8.1 fL (7.6-11.3); RBC Red Blood Cell Count 3.19 M/uL (3.86-4.86)
[2021-09-20] MEDS: HYDRALAZINE HCL 25 MG TABLET PO SCH ×4 (09:00→21:00)
[2021-09-20] MEDS: VENLAFAXINE HCL XR 37.5MG CAP PO SCH (09:00)
[2021-09-20] MEDS: levETIRAcetam 500 MG TAB PO SCH ×3 (09:00→21:00)
[2021-09-20] MEDS: METHYLDOPA 250 MG TABLET PO SCH ×2 (09:00→10:06)
[2021-09-20] MEDS: ENSURE HIGH PROTEIN 237 ML CAN PO SCH ×3 (09:00→21:00)
[2021-09-20] MEDS: APIXABAN 5 MG TABLET PO SCH ×3 (09:00→21:00)
--- NOTE | 2021-09-20 09:14 | EEG ---
CHART: [id number] TEST ID#: [id number] DATE OF STUDY: 09/19/2021 THE EEG WAS RECORDED PORTABLE IN THE PATIENT'S ROOM ON A 17 CHANNEL MACHINE. ELECTRODES WERE APPLIED IN THE USUAL MANNER USING THE INTERNATIONAL 10-20 SYSTEM. THE WAKING BACKGROUND RHYTHM IN THIS RECORD CONSISTS OF FAIRLY WELL DEVELOPED AND FAIRLY WELL ORGANIZED WAVES OF 7 HZ., MAXIMAL IN THE POSTERIOR HEAD REGIONS WHICH ATTENUATE NORMALLY WITH EYE OPENING. LOW-VOLTAGE 18-22 HZ ACTIVITY IS EXPRESSED IN THE FRONTAL REGIONS. LOW TO MODERATE VOLTAGE 3-4 HZ ACTIVITY IS OCCASIONALLY EXPRESSED IN THE FRONTAL REGIONS. THERE ARE NO FOCAL OR LATERALIZING FEATURES. NO EPILEPTIFORM ACTIVITY APPEARS. SLEEP OCCURRED NATURALLY. IN ADDITION NORMAL SLEEP PATTERNS ARE PRESENT. HYPERVENTILATION WAS NOT PERFORMED. PHOTIC STIMULATION PRODUCED FAIR DRIVING BILATERALLY. IMPRESSION: THIS IS MILDLY ABNORMAL EEG DUE TO A MILDLY SLOW BACKGROUND. THIS IS A NON-SPECIFIC FINDING INDICATING THE PRESENCE OF A MILD DIFFUSE DISTURBANCE IN CEREBRAL FUNCTION.
[2021-09-20] MEDS: THIAMINE 200 MG/2 ML INJ IVP SCH (10:04)
[2021-09-20] MEDS: CEFEPIME 1 GM in NA CHLORIDE 0.9% 100 ML IV SCH ×2 (10:10→21:00)
--- NOTE | 2021-09-20 15:24 | P.PN ---
Subjective Date of Service: 09/20/21 Chief Complaint: LOT BETTER TODAY. Subjective: No new changes, No C/O voiced Physical Examination - Vital Signs Temperature: 97 F Blood Pressure: 136/65 Pulse: 53 Respirations: 16 Pulse Ox (%): 95 - Studies Medications List Reviewed: Yes Assessment And Plan Physician Review: Patient Assessed, Agree with Above Assessment and Plan Physician Review Additional Text: General - Obese , elderly female , drowsy Heent -vanessa,eomi Neck -no JVD, no bruit Resp - clest lung , diminshed bases CV -sis2, rrr GI- full, soft abd , BS + HIMANSHU- no pedal edema b/l Neuro - drowsy , confused ,pin rolling tremors A/P Hyponatremia-again trending down - Limit free water intake -off salt tabs , will restart 1 g bid again -off lasix now , c/w to monitor volume status -continue oral fluids intake to less than 1.5 L/day HTN -controlled ,continue regime-hydralazine/Norvasc Encephalopathy -consider Ritalin. Suspected underlying dementia Recent leg skin cancer -s/p resection , follow with wound care
[2021-09-20] MEDS: SODIUM CHLORIDE 1 GM TAB PO SCH (17:00)
--- NOTE | 2021-09-20 21:26 | P.PN ---
Subjective Date of Service: 09/20/21 Chief Complaint: LOT BETTER TODAY. Subjective: No C/O voiced SHE IS LOT BETTER. TODAY AWAKE, TALKING AND SMILING. THIS HAPPENED AFTER ONE DOSE OF VENLAFAXINE AND 3 DAYS OF KEPPRA. TODAY ONCE AGAIN HERBER WAS IN HER SLOW CATATONIC PHASE AGAIN. I ORDERED EEG AND CONSULTED DR. HAWLEY. Review of Systems 10-point ROS is otherwise unremarkable General: Weakness Physical Examination - Vital Signs Temperature: 96.9 F Blood Pressure: 136/65 Pulse: 52 Respirations: 16 Pulse Ox (%): 96 - Physical Exam General: Oriented x3, Mild distress HEENT: Atraumatic, PERRLA, EOMI Neck: Supple, JVD not distended Respiratory: Clear to auscultation bilaterally, Normal air movement Cardiovascular: Regular rate/rhythm, Normal S1 S2 Gastrointestinal: Normal bowel sounds, No tenderness Musculoskeletal: No tenderness Integumentary: No rashes Neurological: Normal speech, Normal tone, Normal affect Lymphatics: No axilla or inguinal lymphadenopathy - Studies Medications List Reviewed: Yes Assessment And Plan - Current Problems (Diagnosis) (1) HTN (hypertension) Current Visit: No Status: Chronic Plan: USUALLY SHE HAS VERY DIFFICULT TO CONTROL BP WHEN SHE IS NOT DEHYDRATED LIKE THIS TIME. DEHYDRATION IS FROM DIARRHEA AND EDARBICLOR. WE STOPPED THE MEDICINE. SHE IN PAST HAS NOT TOLERATED MANY MEDS. SHE HAS ISSUES WITH B [employer] CHANNEL BLOCKERS, NORVASC GIVES HER EDEMA. OTHER ROBIN BLOCKERS GAVE BRADYCARDIA. LOSARTAN AND OTHER ANGI AND ARB DID NOT WORK. SHE HAS BEEN ON ALDOMET FOR MANY YEARS AND WORKED WELL FOR HER. RESTART HYDRALAZINE. WILL REDUCE NORVASC TO 2.5 MG SHE COULD NOT TAKE 5 MG. ON NEW MEDS. LOT BETTER. Qualifiers: Hypertension type: primary hypertension Qualified Code(s): I10 - Essential (primary) hypertension (2) Hyponatremia Current Visit: No Status: Acute Plan: SODIUM IS 125 TODAY. COMING UP SLOWLY SHE NEEDS TO WALK WELL SO SHE CAN GO HOME IN AM. IMPROVMENT IS SLOW WE NEED TO. TODAY 127 MILD LOWNORMAL BP GENTLE IV HYDRATION. (3) Seizure disorder Current Visit: No Status: Chronic Plan: PER DAUGHTER SHE DOES NOT HAVE THIS. YEARS AGO WHEN AT HIGH ALTITUDE SHE PASSED OUT AND THE LOCAL DOCTOR PUT HER ON PHENOBARBITAL. SHE NEVER GOT OFF AFTER THAT. DAUGHTER IS REQUESTING AND I AGREE THAT WE CAN STOP IT THERE IS NO DOCUMENTED SEIZURE IN THE PAST. (4) Altered mental status Current Visit: No Status: Acute Plan: CATATONIC STATUS HAS CLEARED AFTER ONE DOSE OF VENLAFAXINE. SHE ALSO HAD CHANGE OF SEIZURE MEDS. I SUSPECTED PATIENTS CAN HAVE ABSENCE SEIZURES AND HAS A NONVERBAL PHASE. CONTINUE KEPPRA IT IS A VERY EASILY TOLERATED MED. EEG AND DR. HAWLEY. I AM NOT SURE IF THIS IS JUST DEPRESSION OR ATYPICAL SEIZURES. (5) UTI (urinary tract infection) Current Visit: Yes Status: Acute Plan: POSSIBLE. CULTURE PENDING WBC IS 16K STARTED CIPRO YESTERDAY. WILL FU DAILY LAB. CIPRO DCED IT WILL INTERACE WITH BETAPACE STARTED TODAY. ROCEPHIN UNTIL ORAL INTAKE IS PROPER WBC LWER THAN YESTERDAY. CIPRO IS WORKING BUT INTERACTS NOW. BACTERIA SENSITIVE TO CEFEPIME. (6) Rapid atrial fibrillation Current Visit: Yes Status: Acute Plan: NEW THIS AM. STARTED SOTALOL ALREADY ON ELIQUIS WILL STOP VERAPAMIL. WATCH BP. SH IS BACK IN SINUS RHYTHM THIS AFTERNOON. - Code Status/Comfort Care Code Status: Full Code Physician Review: Patient Assessed, Agree with Above Assessment and Plan Physician Review Additional Text: General - Obese , elderly female , drowsy Heent -vanessa,eomi Neck -no JVD, no bruit Resp - clest lung , diminshed bases CV -sis2, rrr GI- full, soft abd , BS + HIMANSHU- no pedal edema b/l Neuro - drowsy , confused ,pin rolling tremors A/P Hyponatremia-again trending down - Limit free water intake -off salt tabs , will restart 1 g bid again -off lasix now , c/w to monitor volume status -continue oral fluids intake to less than 1.5 L/day HTN -controlled ,continue regime-hydralazine/Norvasc Encephalopathy -consider Ritalin. Suspected underlying dementia Recent leg skin cancer -s/p resection , follow with wound care
--- NOTE | 2021-09-20 22:21 | CON ---
Reason For Consultation: Consultation called by Dr. Frost because of persistent altered mental statu s. History Of Present Illness: Ms. Wharton is an 85-year-old patient who was admitted to [facility] on 09/11/2021, with severe hyponatremia. At the time of her admission, she was apparently dehydr ated and possibility of a seizure. She had been on phenytoin. She was found to have a sodium level of 115 and was very weak, diffuse, however, there was no immediate seizure activity at that time. He r sodium was gingerly increased and a brain MRI done on the at that study showed moderate conflu ent periventricular small vessel ischemic disease. There was no evidence of central pontine myelinol ysis. The patient, however, has been slow to awaken. She would respond to stimulation and eventuall y would open her eyes and could move the arms and legs, but it was not thriving and EEG showed a diff usely slow background, but no epileptiform activity. Her urinalysis is consistent with urinary tract infection. She grew E coli, gram-negative rods for which the sensitivity panel showed nitrofurantoi n, Augmentin, Rocephin, ceftriaxone, but was resistant to ciprofloxacin. She is being treated with c efepime per Dr. Frost every 12 hours. Allergies: PHENYTOIN, CEPHALEXIN, LATEX. Medications: At Home: Aspirin 81 mg daily, Ditropan daily, phenobarbital, Aldomet 250 mg twice daily , clonidine 1 mg every 4 hours, Apresoline 25 mg twice daily. Surgical History: Knee surgery, cholecystectomy, breast reduction, foot surgery, and surgery on wris t. Family History: Noncontributory. Social History: No alcohol, tobacco, or IV drug use. Review of Systems: Unable to give a reliable review of systems. Physical Examination: Vital Signs: Blood pressure 136/65, pulse 83, respiratory rate 16, temperature 97.9, oxygen saturati on 95% on room air, weight 155 pounds, height 5 feet, BMI 30.3. General: Ms. Wharton is resting in bed. She is in no significant distress. HEENT: She appears normoce phalic and anicteric. Oropharynx appears pink and moist. Neck: Supple. Chest: Clear. Abdomen: Soft. Extremities: Showed no significant edema or cyanosis. Neurological: While in the room, she did have her eyes closed but would open to verbal stimulation, w ould look eventually trach. She only spoke clear 2 words. She did not engage in conversation. She did eventually follow commands, though still little bit small smile. She did move both upper extremi ties equally and moves the lower extremities a lesser extent equally. She required some stimulation to maintain interaction. Cranial nerves showed no focal deficits. Motor again symmetric. Sensory Exam, difficult to fully assess, but appeared to be symmetric. Tone was symmetric. Reflexes symmetric. Unable to assess her gait and coordination fully. Laboratory Studies: Showed white blood cell count 16.2, hemoglobin 9.3, INR 1. Chemistries: Now, sodium up to 132, potassium 3.9, chloride 102, carbon dioxide 21, BUN 42, creatinin e 0.74, glucose 92 to 109, calcium 9.2, AST 70, ALT 120, alkaline phosphate 172, albumin 2.2. Urinalysis shows greater than 50 bacteria, 10 to 20 epithelial cells, greater than 50 white blood nadia ls, 3+ esterase, positive nitrites, trace protein. COVID-19 test is negative. Assessment: Ms. Wharton is an 85-year-old patient with multiple reasons for encephalopathy. She had a significantly low sodium which is now corrected. 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 Her EEG is diffusely so consistent with a diffuse disturbance in cerebral function. Plan: Continue with Keppra which she is on now 250 mg twice daily. Continue with treatment of urina ry tract infection. Continue Eliquis, as she is on 5 mg twice daily for stroke risk and DVT prophyla xis. She may likely require aggressive physical, occupational, speech therapy to help with her recovery, s lennie she is now hospitalized for 9 days and will likely become debilitated. She may be a candidate f or inpatient rehabilitation, if she can maintain wakefulness and participate for up to 3-1/2 hours jan monterroso. LB/MODL Voice ID: [id number] Report ID: [id number]
[2021-09-20 23:08] VITALS: O2SAT 98
[2021-09-21] MEDS: cloNIDine HCL 0.1 MG TAB PO PRN (02:44)
[2021-09-21] MEDS: SOTALOL HCL 80 MG TAB PO SCH (05:24)
[2021-09-21 07:02] VITALS: TEMP 97.7
[2021-09-21 07:06] LABS: Absolute Lymphocytes (CBC) 1.4 K/uL (0.7-4.9); Hematocrit 29.3 % (36.0-45.0); Lymphocytes % 11.9 % (15.3-44.8); MPV 8.7 fL (7.6-11.3); RBC Red Blood Cell Count 3.29 M/uL (3.86-4.86)
[2021-09-21 07:14] LABS: Potassium 3.8 mmol/L (3.5-5.1)
[2021-09-21] MEDS: SODIUM CHLORIDE 1 GM TAB PO SCH (08:00)
[2021-09-21] MEDS: METHYLDOPA 250 MG TABLET PO SCH (09:00)
[2021-09-21] MEDS ORDERED: VENLAFAXINE HCL XR 37.5MG CAP PO SCH (09:00)
[2021-09-21] MEDS: HYDRALAZINE HCL 25 MG TABLET PO SCH ×2 (09:58→13:58)
[2021-09-21] MEDS: levETIRAcetam 500 MG TAB PO SCH (09:58)
[2021-09-21] MEDS: APIXABAN 5 MG TABLET PO SCH (09:58)
[2021-09-21] MEDS: CEFEPIME 1 GM in NA CHLORIDE 0.9% 100 ML IV SCH (09:59)
[2021-09-21] MEDS: THIAMINE 200 MG/2 ML INJ IVP SCH (10:00)
[2021-09-21 13:03] VITALS: BP 167/66
--- NOTE | 2021-09-21 13:18 | P.PN ---
Subjective Date of Service: 09/21/21 Chief Complaint: SHE IS MUCH MORE AWAKE Subjective: Improving SHE IS LOT BETTER. TODAY AWAKE, TALKING AND SMILING. THIS HAPPENED AFTER ONE DOSE OF VENLAFAXINE AND 3 DAYS OF KEPPRA. TODAY ONCE AGAIN HERBER WAS IN HER SLOW CATATONIC PHASE AGAIN. I ORDERED EEG AND CONSULTED DR. HAWLEY. SHE DOES NOT HAVE ANY COMPLAINTS. SHE IS WEAK AND FATIGUED. Review of Systems 10-point ROS is otherwise unremarkable Physical Examination - Vital Signs Temperature: 97.7 F Blood Pressure: 167/66 Pulse: 50 Respirations: 18 Pulse Ox (%): 97 - Physical Exam General: Oriented x2, Mild distress HEENT: Atraumatic, PERRLA, EOMI Neck: Supple, JVD not distended Respiratory: Clear to auscultation bilaterally, Normal air movement Cardiovascular: Regular rate/rhythm, Normal S1 S2 Gastrointestinal: Normal bowel sounds, No tenderness Musculoskeletal: No tenderness Integumentary: No rashes Neurological: Normal speech, Normal tone, Normal affect Lymphatics: No axilla or inguinal lymphadenopathy - Studies Medications List Reviewed: Yes Assessment And Plan - Current Problems (Diagnosis) (1) HTN (hypertension) Current Visit: No Status: Chronic Plan: USUALLY SHE HAS VERY DIFFICULT TO CONTROL BP WHEN SHE IS NOT DEHYDRATED LIKE THIS TIME. DEHYDRATION IS FROM DIARRHEA AND EDARBICLOR. WE STOPPED THE MEDICINE. SHE IN PAST HAS NOT TOLERATED MANY MEDS. SHE HAS ISSUES WITH B [employer] CHANNEL BLOCKERS, NORVASC GIVES HER EDEMA. OTHER ROBIN BLOCKERS GAVE BRADYCARDIA. LOSARTAN AND OTHER ANGI AND ARB DID NOT WORK. SHE HAS BEEN ON ALDOMET FOR MANY YEARS AND WORKED WELL FOR HER. RESTART HYDRALAZINE. WILL REDUCE NORVASC TO 2.5 MG SHE COULD NOT TAKE 5 MG. ON NEW MEDS. LOT BETTER. Qualifiers: Hypertension type: primary hypertension Qualified Code(s): I10 - Essential (primary) hypertension (2) Hyponatremia Current Visit: No Status: Acute Plan: SODIUM IS 125 TODAY. COMING UP SLOWLY SHE NEEDS TO WALK WELL SO SHE CAN GO HOME IN AM. IMPROVMENT IS SLOW WE NEED TO. TODAY 127 MILD LOWNORMAL BP GENTLE IV HYDRATION. (3) Seizure disorder Current Visit: No Status: Chronic Plan: PER DAUGHTER SHE DOES NOT HAVE THIS. YEARS AGO WHEN AT HIGH ALTITUDE SHE PASSED OUT AND THE LOCAL DOCTOR PUT HER ON PHENOBARBITAL. SHE NEVER GOT OFF AFTER THAT. DAUGHTER IS REQUESTING AND I AGREE THAT WE CAN STOP IT THERE IS NO DOCUMENTED SEIZURE IN THE PAST. (4) Altered mental status Current Visit: No Status: Acute Plan: CATATONIC STATUS HAS CLEARED AFTER ONE DOSE OF VENLAFAXINE. SHE ALSO HAD CHANGE OF SEIZURE MEDS. I SUSPECTED PATIENTS CAN HAVE ABSENCE SEIZURES AND HAS A NONVERBAL PHASE. CONTINUE KEPPRA IT IS A VERY EASILY TOLERATED MED. EEG AND DR. HAWLEY. I AM NOT SURE IF THIS IS JUST DEPRESSION OR ATYPICAL SEIZURES. (5) UTI (urinary tract infection) Current Visit: Yes Status: Acute Plan: POSSIBLE. CULTURE PENDING WBC IS 16K STARTED CIPRO YESTERDAY. WILL FU DAILY LAB. CIPRO DCED IT WILL INTERACE WITH BETAPACE STARTED TODAY. ROCEPHIN UNTIL ORAL INTAKE IS PROPER WBC LWER THAN YESTERDAY. CIPRO IS WORKING BUT INTERACTS NOW. BACTERIA SENSITIVE TO CEFEPIME. WBC IS DOWN TO 11K. CEFEPIME WORKED DC ON AUGMENTIN SH HAS NO REACTION TO CEFEPIME. (6) Rapid atrial fibrillation Current Visit: Yes Status: Acute Plan: NEW THIS AM. STARTED SOTALOL ALREADY ON ELIQUIS WILL STOP VERAPAMIL. WATCH BP. SH IS BACK IN SINUS RHYTHM THIS AFTERNOON. DAUGHTER WANTS RE[employer]ED [place] FOR HER. SHE WANTS HOSPICE BUT FOR NOW I THINK SHE MAY RECOVER. Physician Review: Patient Assessed, Agree with Above Assessment and Plan Physician Review Additional Text: General - Obese , elderly female , drowsy Heent -vanessa,eomi Neck -no JVD, no bruit Resp - clest lung , diminshed bases CV -sis2, rrr GI- full, soft abd , BS + HIMANSHU- no pedal edema b/l Neuro - drowsy , confused ,pin rolling tremors A/P Hyponatremia-again trending down - Limit free water intake -off salt tabs , will restart 1 g bid again -off lasix now , c/w to monitor volume status -continue oral fluids intake to less than 1.5 L/day HTN -controlled ,continue regime-hydralazine/Norvasc Encephalopathy -consider Ritalin. Suspected underlying dementia Recent leg skin cancer -s/p resection , follow with wound care
--- NOTE | 2021-09-21 14:31 | P.PN ---
Subjective Date of Service: 09/21/21 Chief Complaint: SHE IS MUCH MORE AWAKE Subjective: No new changes, No C/O voiced Physical Examination - Vital Signs Temperature: 97.7 F Blood Pressure: 167/66 Pulse: 50 Respirations: 18 Pulse Ox (%): 97 - Studies Medications List Reviewed: Yes Assessment And Plan Physician Review: Patient Assessed, Agree with Above Assessment and Plan Physician Review Additional Text: General - Obese , elderly female , drowsy Heent -vanessa,eomi Neck -no JVD, no bruit Resp - clest lung , diminshed bases CV -sis2, rrr GI- full, soft abd , BS + HIMANSHU- no pedal edema b/l Neuro - drowsy , confused ,pin rolling tremors A/P Hyponatremia-Improving again to 135 with restart salt tabs c/w salt tabs 2 g bid - Limit free water intake -off lasix now , c/w to monitor volume status -continue oral fluids intake to less than 1.5 L/day Met Acidosis -mild , may be due to chloride loading - if further drop belwo 20 , will add sodium bicarb tabs HTN -controlled ,continue regime-hydralazine/Norvasc Encephalopathy -consider Ritalin. Suspected underlying dementia Recent leg skin cancer -s/p resection , follow with wound care
== END 2021-09-21 15:59 | disposition hospice, home (50) | DRG 643 ==
LOC: ER 14:12 → ERHOLD 17:02 → 2ND 09-12 16:03
PROVIDERS: ADMIT Internal Medicine; ATTEND Hospitalist
DX: E22.2 Syndrome of inappropriate secretion of antidiuretic hormone (principal); G93.41 Metabolic encephalopathy; N39.0 Urinary tract infection, site not specified; E87.2 Acidosis; E86.0 Dehydration; B96.20 Unspecified Escherichia coli [E. coli] as the cause of diseases classified elsewhere; F01.50 Vascular dementia, unspecified severity, without behavioral disturbance, psychotic disturbance, mood disturbance, and anxiety; I10 Essential (primary) hypertension; R19.7 Diarrhea, unspecified; G40.909 Epilepsy, unspecified, not intractable, without status epilepticus; I48.0 Paroxysmal atrial fibrillation; Z91.040 Latex allergy status; Z20.822 Contact with and (suspected) exposure to COVID-19
CPT/HCPCS: 36415; 70553; 71045; 71260; 74176; 80048; 80053; 80076; 81001; 81015; 82140; 82533; 82570; 82947; 83735; 83880; 83930; 83935; 84300; 84439; 84443; 84484; 85025; 85610; 87077; 87086; 87088; 87186; 93005; 95819; 96360; 96361; 97110; 97112; 97116; 97161; 97530; 99284; A9577; J0692; J1650; J3411; J7030; Q9967; U0003

== ENCOUNTER 2021-11-24 15:12 | Inpatient (IN) | payer OTHER ==
[2021-11-24] MEDS ORDERED: METHYLPREDNISOLONE 125 MG INJ ONE (16:24)
[2021-11-24] MEDS ORDERED: FAMOTIDINE 20 MG/2 ML VIAL IV ONE (16:25)
[2021-11-24] MEDS ORDERED: LEVALBUTEROL 1.25 MG/3 ML NEB ONE (16:25)
[2021-11-24] MEDS ORDERED: IPRATROPIUM BROM 0.5MG/2.5ML ONE (16:25)
[2021-11-24] MEDS ORDERED: NITROGLYCERIN 1 GM PKT TD ONE (16:25)
[2021-11-24] MEDS ORDERED: FUROSEMIDE 20 MG/ 2ML VIAL ONE (16:28)
[2021-11-24] MEDS ORDERED: NA CHLORIDE 0.9% 500 ML ONE (16:29)
[2021-11-24 16:35] LABS: Absolute Lymphocytes (CBC) 1.9 K/uL (0.7-4.9); Lymphocytes % 21.1 % (15.3-44.8); MPV 9.3 fL (7.6-11.3); RBC Red Blood Cell Count 3.65 M/uL (3.86-4.86)
[2021-11-24 16:40] LABS: Protime INR 1.46
[2021-11-24 16:47] LABS: Urine Blood Negative (Negative); Urine Glucose Negative (Negative); Urine Protein 2+ (Negative); Urine Specific Gravity 1.015 (1.005-1.030)
[2021-11-24 16:53] LABS: Potassium 3.6 mmol/L (3.5-5.1); Troponin High Sensitivity 25.2 pg/mL (<58.9)
[2021-11-24] MEDS ORDERED: Levofloxacin 250mg IV 250 MG/50 ML BAG IV ONE (17:00)
--- NOTE | 2021-11-24 17:05 | EDPHYS ---
Physician Documentation [facility] Name: Larissa Wharton Age: 85 yrs Sex: Female : 1935 Arrival Date: 11/24/2021 Time: 15:13 Bed 17 Private MD: ED Physician Joey Seth HPI: 11/24 16:17 This 85 yrs old Female presents to ER via EMS with complaints of General armando Weakness. Historical: - Allergies: 15:14 Cephalexin; ll1 15:14 Latex, Natural Rubber; ll1 15:14 Phenytoin; ll1 - PMHx: 15:14 Hypertensive disorder; A fib; Dementia; ll1 - PSHx: 15:14 Unable to Obtain; ll1 - Immunization history:: Client reports receiving the 2nd dose of the Covid vaccine. - Social history:: Smoking status: Patient denies any tobacco usage or history of. ROS: 16:17 Constitutional: Negative for fever, chills, and weight loss, Eyes: Negative for injury, armando pain, redness, and discharge, ENT: Negative for injury, pain, and discharge, Neck: Negative for injury, pain, and swelling, Respiratory: Negative for shortness of breath, cough, wheezing, and pleuritic chest pain, Abdomen/GI: Negative for abdominal pain, nausea, vomiting, diarrhea, and constipation, Back: Negative for injury and pain, : Negative for injury, bleeding, discharge, and swelling, MS/Extremity: Negative for injury and deformity, Skin: Negative for injury, rash, and discoloration, Neuro: Negative for headache, weakness, numbness, tingling, and seizure, Psych: Negative for depression, anxiety, suicide ideation, homicidal ideation, and hallucinations, Allergy/Immunology: Negative for hives, rash, and allergies, Endocrine: Negative for neck swelling, polydipsia, polyuria, polyphagia, and marked weight changes. 16:17 Cardiovascular: Positive for palpitations. 16:17 Respiratory: Positive for cough, shortness of breath, wheezing, inspiratory, expiratory. 16:17 MS/extremity: Positive for swelling. Exam: 16:17 Constitutional: This is a well developed, well nourished patient who is awake, alert, armando and in no acute distress. Head/Face: Normocephalic, atraumatic. Eyes: Pupils equal round and reactive to light, extra-ocular motions intact. Lids and lashes normal. Conjunctiva and sclera are non-icteric and not injected. Cornea within normal limits. Periorbital areas with no swelling, redness, or edema. ENT: Nares patent. No nasal discharge, no septal abnormalities noted. Tympanic membranes are normal and external auditory canals are clear. Oropharynx with no redness, swelling, or masses, exudates, or evidence of obstruction, uvula midline. Mucous membranes moist. Neck: Trachea midline, no thyromegaly or masses palpated, and no cervical lymphadenopathy. Supple, full range of motion without nuchal rigidity, or vertebral point tenderness. No Meningismus. Chest/axilla: Normal chest wall appearance and motion. Nontender with no deformity. No lesions are appreciated. Abdomen/GI: Soft, non-tender, with normal bowel sounds. No distension or tympany. No guarding or rebound. No evidence of tenderness throughout. Back: No spinal tenderness. No costovertebral tenderness. Full range of motion. Female : Normal external genitalia. Skin: Warm, dry with normal turgor. Normal color with no rashes, no lesions, and no evidence of cellulitis. MS/ Extremity: Pulses equal, no cyanosis. Neurovascular intact. Full, normal range of motion. Neuro: Awake and alert, GCS 15, oriented to person, place, time, and situation. Cranial nerves II-XII grossly intact. Motor strength 5/5 in all extremities. Sensory grossly intact. Cerebellar exam normal. Normal gait. Psych: Awake, alert, with orientation to person, place and time. Behavior, mood, and affect are within normal limits. 16:17 Cardiovascular: Rate: bradycardic, Rhythm: regular, Pulses: Pulses are 4+ in bilateral radial, brachial, femoral, popliteal, posterior tibial and and dorsalis pedis arteries.. Heart sounds: normal, Edema: 2+ edema to level of left midcalf and right midcalf, JVD: is noted bilaterally, to 3 cm. 16:17 ECG was reviewed by the Attending Physician. Vital Signs: 15:16 BP 220 / 87; Pulse 52; Resp 18; Pulse Ox 96% ; Weight 69.85 kg; Height 5 ft. 0 in. mb7 (152.40 cm); 15:21 Temp 97.2; mb7 15:51 BP 213 / 104; ll1 16:07 BP 202 / 76; ll1 17:27 BP 203 / 73; Pulse 50; Resp 17; Pulse Ox 96% on R/A; ll1 19:09 BP 192 / 83; Pulse 50; Resp 17; ll1 21:57 BP 163 / 67; Pulse 52; Resp 18; Pulse Ox 94% on R/A; kd3 15:16 Body Mass Index 30.08 (69.85 kg, 152.40 cm) mb7 Procedures: 16:37 Peripheral line: by aseptic technique a peripheral line was placed in the right armando external jugular vein. MDM: 15:27 Patient medically screened. [facility] 16:20 Differential diagnosis: asthma, Bronchitis CHF exacerbation, Chronic Obstructive armando Pulmonary Disease pneumonia, pulmonary edema, Pulmonary Embolism reactive airway disease, Sepsis Unstable Angina. Antibiotic administration: Levaquin given. Differential Diagnosis altered mental status, sepsis, flu. The patient's Wells Deep Vein Thrombosis Score was calculated as follows: Total Score: 0-2 Pts- Low Risk. The patient's pulmonary embolism risk score was calculated as follows: Total Score: 0-2 points. This patient was found to be at low risk for a pulmonary embolism by using the Well's assessment criteria. Immunization status: Pneumococcal vaccine: Influenza vaccine: Data reviewed: vital signs, nurses notes, lab test result(s), EKG, radiologic studies, plain films. Data interpreted: shelter monitor: rate is 52 beats/min, rhythm is regular, Pulse oximetry: on room air is 96 %. Test interpretation: by ED physician or midlevel provider: ECG, plain radiologic studies. Counseling: I had a detailed discussion with the patient and/or guardian regarding: the historical points, exam findings, and any diagnostic results supporting the discharge/admit diagnosis, the presence of at least one elevated blood pressure reading (>120/80) during this emergency department visit, lab results, the need for further work-up and treatment in the hospital. 11/24 15:50 Order name: Basic Metabolic Panel; Complete Time: 16:54 ll1 11/24 15:50 Order name: CBC with Diff; Complete Time: 16:47 ll1 11/24 15:50 Order name: NT PRO-BNP; Complete Time: 16:54 ll1 11/24 15:50 Order name: PT-INR; Complete Time: 16:47 ll1 11/24 15:50 Order name: Troponin HS; Complete Time: 16:54 1 11/24 16:10 Order name: Blood Culture Adult (2) [facility] 11/24 16:10 Order name: Procalcitonin; Complete Time: 19:03 [facility] 11/24 16:10 Order name: Lactate; Complete Time: 16:54 [facility] 11/24 16:10 Order name: Urine Culture [facility] 11/24 16:10 Order name: Osmolality, Serum; Complete Time: 19:03 armando 11/24 16:10 Order name: Urine Osmolality; Complete Time: 19:03 armando 11/24 16:10 Order name: Urine Sodium Random; Complete Time: 19:03 armando 11/24 16:11 Order name: Blood Culture Adult (2) mb7 11/24 16:27 Order name: Phenobarbital; Complete Time: 19:03 eb 11/24 15:50 Order name: XRAY Chest (1 view); Complete Time: 19:03 [facility] 11/24 15:50 Order name: EKG; Complete Time: 15:51 [facility] 11/24 15:50 Order name: Cardiac monitoring; Complete Time: 15:51 [facility] 11/24 16:48 Order name: Urine Dipstick-Ancillary; Complete Time: 16:50 [facility] 11/24 17:12 Order name: CONS Physician Consult [facility] 11/24 17:14 Order name: COVID-19 SARS RT PCR (Document "Date of Onset" if Symptomatic) aa5 11/24 20:43 Order name: SARS-COV-[address] [facility] 11/24 15:50 Order name: EKG - Nurse/Tech; Complete Time: 15:51 [facility] 11/24 15:50 Order name: IV Saline Lock; Complete Time: 15:51 [facility] 11/24 15:50 Order name: Labs collected and sent; Complete Time: 15:51 [facility] 11/24 15:50 Order name: O2 Per Protocol; Complete Time: 15:51 [facility] 11/24 15:50 Order name: O2 Sat Monitoring; Complete Time: 15:51 [facility] 11/24 16:10 Order name: Urine Dipstick-Ancillary (obtain specimen); Complete Time: 16:48 [facility] 11/24 16:10 Order name: Hernandez; Complete Time: 16:46 [facility] EC:17 Rate is 51 beats/min. Rhythm is regular. QRS [place] is Normal. [place] interval is normal. QRS armando interval is normal. QT interval is normal. No Q waves. T waves are Normal. No ST changes noted. Clinical impression: Sinus bradycardia and No evidence of ischemia. Interpreted by me. Reviewed by me. Administered Medications: 16:44 Drug: NS 0.9% 1000 ml Route: IV; Rate: 50 ml/hr; Site: right jugular; ll1 16:44 Drug: Lasix (furosemide) 20 mg Route: IVP; Site: right jugular; ll1 17:08 Follow up: Response: No adverse reaction ll1 16:44 Drug: Lasix (furosemide) 20 mg Route: IVP; Site: right jugular; ll1 17:08 Follow up: Response: No adverse reaction ll1 16:45 Drug: SOLU-Medrol (methylPrednisoLONE) 125 mg Route: IVP; Site: right jugular; ll1 17:09 Follow up: Response: No adverse reaction ll1 16:45 Drug: Xopenex (levalbuterol) 2.5 mg Route: Inhalation; ll1 17:09 Follow up: Response: No adverse reaction ll1 16:45 Drug: AtroVENT (ipratropium) Aerosol 0.5 mg Route: Inhalation; ll1 17:09 Follow up: Response: No adverse reaction ll1 16:45 Drug: Nitro-Bid (nitroglycerin) Ointment 2 % 0.5 inches Route: Transdermal; Site: ll1 anterior chest wall; 17:09 Follow up: Response: No adverse reaction ll1 16:45 Drug: Pepcid (famotidine) 20 mg Route: IVP; Site: right jugular; ll1 17:08 Follow up: Response: No adverse reaction ll1 17:08 Drug: levofloxacin 250 mg Volume: 50 ml; Route: IVPB; Infused Over: 60 mins; Site: ll1 right jugular; 18:18 Follow up: Response: No adverse reaction; IV Status: Completed infusion; IV Intake: [id number] Disposition Summary: 11/24/21 17:05 Hospitalization Ordered Hospitalization Status: Inpatient Admission armando Provider: Jeremy Frost cha Location: Telemetry/MedSurg (Inpatient) armando Condition: Fair armando Problem: new armando Symptoms: have improved armando Bed/Room Type: Standard armando Room Assignment: 209(11/24/21 21:02) Diagnosis - Systolic (congestive) heart failure armando - Dyspnea armando - Weakness armando - Dementia in other diseases classified elsewhere without behavioral disturbance armando - Anemia, unspecified armando - Unspecified atrial fibrillation - history of, sinus rhythm curerently armando Forms: - Medication Reconciliation Form armando - SBAR form armando Signatures: Dispatcher [employer] EDMela Shankar RN RN mw Anderson, Corey, MD MD cha Lewis, Lynsay, RN RN ll1 Corrections: (The following items were deleted from the chart) 21:02 17:05 armando bains
--- NOTE | 2021-11-24 17:05 | ER ---
Nurse's Notes [facility] Name: Larissa Wharton Age: 85 yrs Sex: Female : 1935 Arrival Date: 11/24/2021 Time: 15:13 Bed 17 Private MD: Diagnosis: Systolic (congestive) heart failure;Dyspnea;Weakness;Dementia in other diseases classified elsewhere without behavioral disturbance;Anemia, unspecified;Unspecified atrial fibrillation-history of, sinus rhythm curerently Presentation: 11/24 15:15 Chief complaint: Patient states: Edema of legs, weakness, and lethargic for 3 days. No ll1 fever. Coronavirus screen: Vaccine status: Patient reports receiving the 2nd dose of the covid vaccine. Client denies travel out of the [place] in the last 14 days. At this time, the client does not indicate any symptoms associated with coronavirus-19. Ebola Screen: Patient denies travel to an Ebola-affected area in the 21 days before illness onset. Initial Sepsis Screen: Does the patient meet any 2 criteria? No. Patient's initial sepsis screen is negative. Does the patient have a suspected source of infection? No. Patient's initial sepsis screen is negative. Risk Assessment: Do you want to hurt yourself or someone else? Patient reports no desire to harm self or others. Onset of symptoms was November 22, 2021. 15:15 Method Of Arrival: EMS: [facility] ll1 15:15 Acuity: SHELDON 3 ll1 15:15 Chief complaint: EMS states: BP 202/89, sinus yakelin with 1st degree AV block rate 50. ll1 Lungs clear. [facility] [employer] paperwork with them. Triage Assessment: 15:16 General: Appears in no apparent distress. Behavior is calm, cooperative, appropriate ll1 for age. Pain: Denies pain. Neuro: Reports weakness. Cardiovascular: Reports fatigue. Musculoskeletal: Reports swelling bilateral lower legs. Historical: - Allergies: 15:14 Cephalexin; ll1 15:14 Latex, Natural Rubber; ll1 15:14 Phenytoin; ll1 - PMHx: 15:14 Hypertensive disorder; A fib; Dementia; ll1 - PSHx: 15:14 Unable to Obtain; ll1 - Immunization history:: Client reports receiving the 2nd dose of the Covid vaccine. - Social history:: Smoking status: Patient denies any tobacco usage or history of. Screenin:17 Abuse screen: Denies threats or abuse. Nutritional screening: No deficits noted. ll1 Tuberculosis screening: No symptoms or risk factors identified. Fall Risk IV access (20 points). Gait- Weak (10 pts.). Total Monroy Fall Scale indicates Low Risk Score (25-44 pts). Fall prevention measures have been instituted. Side Rails Up X 2 Frequent Obs/Assesments occuring As available Patient and Family Educated on Fall Prevention Program and strategies. Assessment: 15:51 Reassessment: No changes from previously documented assessment. Patient and/or family ll1 updated on plan of care and expected duration. Pain level reassessed. 17:27 Reassessment: No changes from previously documented assessment. Patient and/or family ll1 updated on plan of care and expected duration. Pain level reassessed. 18:18 Reassessment: No changes from previously documented assessment. Patient and/or family ll1 updated on plan of care and expected duration. Pain level reassessed. 19:11 Reassessment: No changes from previously documented assessment. Patient and/or family ll1 updated on plan of care and expected duration. Pain level reassessed. Patient is alert, oriented x 3, equal unlabored respirations, skin warm/dry/pink. Vital Signs: 15:16 BP 220 / 87; Pulse 52; Resp 18; Pulse Ox 96% ; Weight 69.85 kg; Height 5 ft. 0 in. mb7 (152.40 cm); 15:21 Temp 97.2; mb7 15:51 BP 213 / 104; ll1 16:07 BP 202 / 76; ll1 17:27 BP 203 / 73; Pulse 50; Resp 17; Pulse Ox 96% on R/A; ll1 19:09 BP 192 / 83; Pulse 50; Resp 17; ll1 21:57 BP 163 / 67; Pulse 52; Resp 18; Pulse Ox 94% on R/A; kd3 15:16 Body Mass Index 30.08 (69.85 kg, 152.40 cm) mb7 ED Course: 15:13 Patient arrived in ED. ll1 15:14 Arm band placed on Patient placed in an exam room, on a stretcher. ll1 15:16 Triage completed. ll1 15:18 Patient has correct armband on for positive identification. Bed in low position. Call ll1 light in reach. Side rails up X 1. Pulse ox on. NIBP on. 15:21 Danielle Chauhan, RN is Primary Nurse. ll1 15:27 Joey Seth MD is Attending Physician. armando 16:00 Inserted saline lock: 18 gauge in right EJ, using aseptic technique. Blood collected. ll1 16:10 EKG done, by ED staff, reviewed by Joey Seth MD. mb7 16:47 Hernandez cath inserted, using sterile technique, 18 Fr., by az, balloon inflated, to mb7 gravity drainage, clamped. urine specimen collected. returned clear yellow urine. Patient tolerated well. 16:48 Urine Sodium Random Sent. mb7 16:48 Urine Osmolality Sent. mb7 16:48 Osmolality, Serum Sent. mb7 16:48 Urine Culture Sent. mb7 16:48 Blood Culture Adult (2) Sent. mb7 16:48 Procalcitonin Sent. mb7 16:48 Lactate Sent. mb7 16:48 Basic Metabolic Panel Sent. mb7 16:48 NT PRO-BNP Sent. mb7 16:49 Troponin HS Sent. mb7 16:52 XRAY Chest (1 view) In Process Unspecified. EDMS 17:04 Jeremy Frost MD is Hospitalizing Provider. [facility] 19:22 Primary Nurse role handed off by Danielle Chauhan, TITO cs9 21:00 Cleopatra Vila, TITO is Primary Nurse. kd3 Administered Medications: 16:44 Drug: NS 0.9% 1000 ml Route: IV; Rate: 50 ml/hr; Site: right jugular; ll1 16:44 Drug: Lasix (furosemide) 20 mg Route: IVP; Site: right jugular; ll1 17:08 Follow up: Response: No adverse reaction ll1 16:44 Drug: Lasix (furosemide) 20 mg Route: IVP; Site: right jugular; ll1 17:08 Follow up: Response: No adverse reaction ll1 16:45 Drug: SOLU-Medrol (methylPrednisoLONE) 125 mg Route: IVP; Site: right jugular; ll1 17:09 Follow up: Response: No adverse reaction ll1 16:45 Drug: Xopenex (levalbuterol) 2.5 mg Route: Inhalation; ll1 17:09 Follow up: Response: No adverse reaction ll1 16:45 Drug: AtroVENT (ipratropium) Aerosol 0.5 mg Route: Inhalation; 1 17:09 Follow up: Response: No adverse reaction 1 16:45 Drug: Nitro-Bid (nitroglycerin) Ointment 2 % 0.5 inches Route: Transdermal; Site: ll1 anterior chest wall; 17:09 Follow up: Response: No adverse reaction [facility] 16:45 Drug: Pepcid (famotidine) 20 mg Route: IVP; Site: right jugular; 1 17:08 Follow up: Response: No adverse reaction 1 17:08 Drug: levofloxacin 250 mg Volume: 50 ml; Route: IVPB; Infused Over: 60 mins; Site: ll1 right jugular; 18:18 Follow up: Response: No adverse reaction; IV Status: Completed infusion; IV Intake: [id number] Intake: 18:18 IV: 50ml; Total: 50ml. 1 Output: 19:11 Urine: 1900ml (Hernandez); Total: 1900ml. ll1 22:18 Urine: 1800ml (Hernandez); Total: 3700ml. kd3 Outcome: 17:05 Decision to Hospitalize by Provider. [facility] 22:38 Patient left the ED. lp1 Signatures: Dispatcher [employer] EDJoey Felipe MD MD cha Pena, Laura RN RN lp1 Danielle Chauhan RN RN geovanni1 Marla Lynn Kyli, RN RN kd3 Haylee Hooper 7
--- NOTE | 2021-11-24 17:05 | RAD REPORT ---
EXAM DESCRIPTION: Cat Single View11/24/2021 4:44 pm CLINICAL HISTORY: Chest pain COMPARISON: August 2021 FINDINGS: Mild bilateral pulmonary opacities. Heart is mildly to moderately enlarged IMPRESSION: These findings probably indicate mild CHF
[2021-11-24] MEDS ORDERED: ALBUTEROL 2.5 MG/3 ML NEB SOL NEB PRN (22:16)
[2021-11-24] MEDS ORDERED: IPRATROPIUM BROM 0.5MG/2.5ML NEB PRN (22:16)
[2021-11-24] MEDS ORDERED: HYDRALAZINE HCL 25 MG TABLET PO SCH (22:16)
[2021-11-24] MEDS ORDERED: FAMOTIDINE 20 MG/2 ML VIAL IV SCH (22:16)
[2021-11-24] MEDS: PHENOBARBITAL 32.4 MG TABLET PO SCH ×2 (22:16→23:11)
[2021-11-24] MEDS ORDERED: METHYLDOPA 250 MG TABLET PO SCH (22:16)
[2021-11-24] MEDS ORDERED: ONDANSETRON 4 MG/2 ML VIAL IV PRN (22:16)
[2021-11-24] MEDS ORDERED: ACETAMINOPHEN 500 MG TAB PO PRN (22:16)
[2021-11-24 22:42] VITALS: BMI 27.9
[2021-11-24] MEDS: POTASSIUM 25 MEQ EFFERV TAB PO SCH (23:11)
[2021-11-24] MEDS: METHYLPREDNISOLONE 40 MG INJ IV SCH (23:12)
[2021-11-24 23:22] LABS: Potassium 3.3 mmol/L (3.5-5.1)
[2021-11-25] MEDS: METHYLPREDNISOLONE 40 MG INJ IV SCH ×2 (05:25)
[2021-11-25 06:14] LABS: Hematocrit 31.8 % (36.0-45.0); Lymphocytes % 12.4 % (15.3-44.8); MPV 9.9 fL (7.6-11.3); RBC Red Blood Cell Count 3.74 M/uL (3.86-4.86)
[2021-11-25 06:35] LABS: Potassium 3.5 mmol/L (3.5-5.1)
--- NOTE | 2021-11-25 07:01 | RAD REPORT ---
EXAM DESCRIPTION: RAD - Chest Single View - 11/25/2021 6:53 am CLINICAL HISTORY: Chest Pain COMPARISON: Abdomen Pelvis W Contrast dated 08/23/2018; Abdomen Pelvis W Contrast dated 10/14/2016C hest Single View dated 11/24/2021; Chest Single View dated 09/16/2021; Chest Single View dated ; Chest Pa And Lat (2 Views) dated 07/25/2021 FINDINGS: Lines: None. Lungs: Slight improvement in bilateral interstitial airspace disease. Pleural: Small effusions. Cardiac: Cardiomegaly. Bones: No acute fractures. Other: IMPRESSION: Interstitial edema appears mildly improved since yesterday.
[2021-11-25] MEDS ORDERED: cloNIDine HCL 0.1 MG TAB PO PRN (07:40)
[2021-11-25] MEDS ORDERED: POLYVINYL ALCOHOL 1.4% 15 ML OPTH PRN (07:40)
[2021-11-25] MEDS ORDERED: TRIAMCINOLONE 0.1% CREAM 15GM TOP PRN (07:40)
--- NOTE | 2021-11-25 08:35 | CON ---
Date of Consultation: 11/25/2021 Reason For Consultation: Congestive heart failure. History Of Present Illness: Ms. Wharton is an 85-year-old woman. Has a history of hypertension, demen tia that is vascular, atrial fibrillation. Came in with shortness of breath and weakness and was fou nd to have congestive heart failure by chest x-ray with a BNP of 3372. Denied any chest pain, nausea , vomiting, diaphoresis. Has had some PND and orthopnea and some pedal edema. No syncope. No fever or chills. Past Medical History: As stated above. Allergies: SHE IS ALLERGIC TO CEPHALEXIN, DILANTIN, AND LATEX. Social History: Negative. Family History: Noncontributory. Medications: At home include Keppra, Eliquis, Norvasc, hydralazine, and sotalol. Physical Examination: Vital Signs: She is in sinus rhythm. Vital signs stable, afebrile. HEENT: Negative. Neck: Supple with no bruit. Chest: Reveals rales both bases. Cardiac: Revealed a regular rhythm and rate with an aortic sclerosis murmur. No gallops or rubs. Abdomen: Benign. Extremities: Revealed 1+ edema. Neurologic: She was nonfocal. Impression And Plan: 1.Acute congestive heart failure, most likely diastolic. Echocardiogram is pending. We should add Lasix to her regimen here and when she goes home. 2.Hypertension, fairly well controlled. Continue present regimen. 3.Atrial fibrillation. She is in sinus rhythm on Eliquis and sotalol. 4.Dementia. Recently placed on Keppra by Dr. Page. We will continue to follow. WANDA/NORA Voice ID: [id number] Report ID: [id number]
[2021-11-25 08:50] LABS: Platelet Estimate ADEQ; White Blood Cell Scan OK (OK)
[2021-11-25 08:51] LABS: Anisocytosis SLIGHT; Blood Morphology Comment NOTED (NOT SEEN); Hypochromasia 1+
[2021-11-25] MEDS ORDERED: AMLODIPINE 5 MG TAB PO SCH (09:00)
[2021-11-25] MEDS ORDERED: POLYVINYL ALCOHOL 1.4% 15 ML OPTH SCH (09:00)
[2021-11-25] MEDS: APIXABAN 5 MG TABLET PO SCH ×2 (09:07→22:01)
[2021-11-25] MEDS: OXYBUTYNIN CHLORIDE 5 MG TAB PO SCH ×2 (09:07→22:01)
[2021-11-25] MEDS: HYDRALAZINE HCL 25 MG TABLET PO SCH ×3 (09:07→22:01)
[2021-11-25] MEDS: levETIRAcetam 500 MG TAB PO SCH (09:08)
[2021-11-25] MEDS: FUROSEMIDE 20 MG/ 2ML VIAL IV SCH ×2 (09:08→17:02)
[2021-11-25] MEDS: MULTIVITAMIN TAB PO SCH (09:08)
[2021-11-25] MEDS: POTASSIUM 25 MEQ EFFERV TAB PO SCH ×2 (09:08→22:00)
[2021-11-25] MEDS: VITAMIN D 5,000 UNIT CAP PO SCH (09:09)
[2021-11-25] MEDS: FAMOTIDINE 20 MG TAB PO SCH ×2 (09:09→22:01)
[2021-11-25] MEDS: SOTALOL HCL 80 MG TAB PO SCH (17:02)
--- NOTE | 2021-11-25 22:09 | P.HP ---
Certification for Inpatient Patient admitted to: Inpatient With expected LOS: >2 Midnights Practitioner: I am a practitioner with admitting privileges, knowledge of patient current condition, hospital course, and medical plan of care. Services: Services provided to patient in accordance with Admission requirements found in Title 42 Section 412.3 of the Code of Federal Regulations Patient History Date of Service: 11/25/21 Reason for admission: SHORT OF BREATH History of Present Illness: DHIRAJ HAS HTN, A FIB, SIADH, SEIZURE DISORDER WHO CAME TO OFFICE WITH LETHARGY. WE REDUCED THE DOSE OFKEPPRA NO OTHER REASONS WERE DETECTED. HER SODIUM WAS MILD LOW AND BNP WAS 500. DAUGHTER LATER CALLED THAT SHE WAS SHORT OF BREATH. I ASKED HER TO BE BROUGHT TO ER. SHE HAS MILD CHF. Allergies latex [Latex] Allergy (Intermediate, Verified 11/10/13 01:26) Hives/Rash cephalexin [From Keflex] Adverse Reaction (Intermediate, Verified 11/24/21 22:43) AGITATION phenytoin [From Dilantin] Adverse Reaction (Intermediate, Verified 11/24/21 22:43) AGITATION Home Medications: Oxybutynin Chloride [Ditropan*] 1 tab PO BID 11/10/13 cloNIDine HCL [Clonidine HCl] 1 tab PO Q4H PRN 08/10/21 Apixaban [Eliquis] 5 mg PO BID 11/24/21 Ascorbic Acid [Vitamin C] 500 mg PO BID 11/24/21 Biotin 5 mg PO DAILY 11/24/21 Calcium Carb, Citrate/Vit D3 [Citracal + D ER Tablet] 2 tab PO BID 11/24/21 Cholecalciferol (Vitamin D3) [Vitamin D 5,000 Iu Cap] 5,000 unit PO DAILY 11/24/21 Famotidine [Pepcid] 20 mg PO BID 11/24/21 Gluc Bobby/Chondro Bobby A/Vit C/Mn [Glucosamine-Chondroitin Cap] 1 each PO BID 11/24/21 Glutathione 2 cap PO 1600 11/24/21 Hydralazine HCl [Apresoline] 50 mg PO TID 11/24/21 Multivitamin with Folic Acid [Daily Nicole] 1 each PO DAILY 11/24/21 Propylene Glycol/Peg 400 [Systane 0.3-0.4% Eye Drops] 1 gtt EACH EYE BID 11/24/21 Propylene Glycol/Peg 400/Pf [Systane 0.3-0.4% Eye Drops] 1 each OP Q6HP PRN 11/24/21 Sotalol HCl [Betapace*] 80 mg PO BID 6AM 6PM 11/24/21 Triamcinolone 0.1% Crm [Kenalog 0.1% Cream] 15 appl TOP Q12HP PRN 11/24/21 Vit C/E/Zn/Coppr/Lutein/Zeaxan [Preservision Areds 2 Softgel] 2 cap PO DAILY 11/24/21 levETIRAcetam [Levetiracetam] 250 mg PO DAILY 11/24/21 - Past Medical/Surgical History Has patient received pneumonia vaccine in the past: Yes Diabetic: No -: HTN -: Bladder urgency -: rt knee sx, rt breast mass removal, cholecystectomy, -: HLD, Hiatal hernia, GERD, -: Right knee SX -: Latia -: Breast Reduction -: foot sx -: wrist sx - Social History Smoking Status: Never smoker Alcohol use: No CD- Drugs: No Caffeine use: No Review of Systems 10-point ROS is otherwise unremarkable General: Weakness, Malaise Respiratory: Shortness of Breath Physical Examination - Vital Signs Temperature: 96.9 F Blood Pressure: 138/62 Pulse: 61 Respirations: 17 Pulse Ox (%): 93 - Physical Exam General: Oriented x2 (SHE IS SLIGHTLY CONFUSED ABOUT WHAT IS GOING ON.), Mild distress HEENT: Atraumatic, PERRLA, Mucous membr. moist/pink, EOMI, Sclerae nonicteric Neck: Supple, 2+ carotid pulse no bruit, No LAD, Without JVD or thyroid abnormality Respiratory: Clear to auscultation bilaterally, Normal air movement Cardiovascular: Regular rate/rhythm, Normal S1 S2 Gastrointestinal: Normal bowel sounds, No tenderness Musculoskeletal: No tenderness Integumentary: No rashes Neurological: Normal gait, Normal speech, Normal strength at 5/5 x4 extr, Normal tone, Normal affect Lymphatics: No axilla or inguinal lymphadenopathy Assessment and Plan - Problems (Diagnosis) (1) CHF, acute Current Visit: Yes Status: Acute Plan: ECHO WILL TELL US IF LOW EF. I SUSPECT DIASTOLIC DYSFUNCTION. WATCH DAILY LAB (2) A-fib Current Visit: Yes Status: Chronic Plan: ALREADY ON ANTICOAG. RATE CONTROLLED. (3) A-fib Current Visit: Yes Status: Acute (4) Metabolic encephalopathy Current Visit: Yes Status: Acute Plan: HYPONATREMIA, ACUTE ILLNESS ARE THE REASON. (5) Hyponatremia Current Visit: No Status: Chronic Plan: WATCH LAB. AY NEED FLUID RESTRICTION. MAY GET WORSE WITH DIURETICS (6) Seizure disorder Current Visit: No Status: Chronic Plan: NO TONIC CLONIC. MAY HAVE ABSENCE SEIZURES. - Advance Directives Does patient have a Living Will: Yes Does patient have a Durable POA for Healthcare: Yes
[2021-11-26 03:57] LABS: Absolute Lymphocytes (CBC) 3.5 K/uL (0.7-4.9); Hematocrit 30.4 % (36.0-45.0); Lymphocytes % 19.9 % (15.3-44.8); MPV 9.4 fL (7.6-11.3); RBC Red Blood Cell Count 3.62 M/uL (3.86-4.86)
[2021-11-26 04:26] LABS: Potassium 3.9 mmol/L (3.5-5.1)
[2021-11-26] MEDS: SOTALOL HCL 80 MG TAB PO SCH ×2 (06:00→17:01)
[2021-11-26] MEDS: FAMOTIDINE 20 MG TAB PO SCH ×2 (08:28→22:21)
[2021-11-26] MEDS: VITAMIN D 5,000 UNIT CAP PO SCH (08:28)
[2021-11-26] MEDS: HYDRALAZINE HCL 25 MG TABLET PO SCH ×3 (08:28→22:16)
[2021-11-26] MEDS: MULTIVITAMIN TAB PO SCH (08:28)
[2021-11-26] MEDS: OXYBUTYNIN CHLORIDE 5 MG TAB PO SCH ×2 (08:28→22:17)
[2021-11-26] MEDS: POTASSIUM 25 MEQ EFFERV TAB PO SCH ×2 (08:28→22:17)
[2021-11-26] MEDS: levETIRAcetam 500 MG TAB PO SCH (08:29)
[2021-11-26] MEDS: FUROSEMIDE 20 MG/ 2ML VIAL IV SCH ×2 (08:29→17:26)
[2021-11-26] MEDS: APIXABAN 5 MG TABLET PO SCH ×2 (08:29→22:17)
--- NOTE | 2021-11-26 09:41 | EKG ---
Test Date: 2021-11-24 Test Time: 15:52:11 Agricultural Science Professor: GISELLE MEASUREMENT RESULTS: Intervals: Rate: 51 SC: 236 QRSD: 110 QT: 522 QTc: 481 [place]: P: 53 SC: 236 QRS: -50 T: 66 INTERPRETIVE STATEMENTS: Sinus bradycardia with 1st degree AV block Possible Left atrial enlargement Incomplete right bundle branch block Left anterior fascicular block Abnormal ECG Compared to ECG 09/16/2021 22:00:34 Incomplete right bundle-branch block now present Sinus rhythm no longer present Atrial premature complex(es) no longer present Electronically Signed On 11-26-21 09:36:02 CDT by Ashutosh Prajapati
--- NOTE | 2021-11-26 12:23 | ECHO ---
HEIGHT: 5 ft 0 in WEIGHT: 143 lb 0 oz DATE OF STUDY: 11/26/[address]: Jeremy Frost MD 2-DIMENSIONAL: YES M.MODE: YES DOPPLER: YES COLOR FLOW: YES TDS: NO PORTABLE: YES DEFINITY: NO BUBBLE STUDY: NO DIAGNOSIS: EDEMA, DYSPNEA CARDIAC HISTORY: CATHERIZATION: NO SURGERY: NO PROSTHETIC VALVE: NO PACEMAKER: NO MEASUREMENTS (cm) DIASTOLIC (NORMALS) SYSTOLIC (NORMALS) IVSd 1.1 (0.6-1.2) LA Diam 3.4 (1.9-4.0) LVEF 60-65% LVIDd 3.4 (3.5-5.7) LVIDs 2.0 (2.0-3.5) %FS 42% LVPWd 1.3 (0.6-1.2) Ao Diam 2.7 (2.0-3.7) 2 DIMENSIONAL ASSESSMENT: RIGHT ATRIUM: NORMAL LEFT ATRIUM: NORMAL RIGHT VENTRICLE: NORMAL LEFT VENTRICLE: NORMAL TRICUSPID VALVE: NORMAL MITRAL VALVE: PULMONIC VALVE: AORTIC VALVE: THICKENED, NO PERICARDIAL EFFUSION: NONE AORTIC ROOT: NORMAL LEFT VENTRICULAR WALL MOTION: NORMAL DOPPLER/COLOR FLOW: SEE BELOW. COMMENTS: NORMAL LEFT VENTRICULAR EJECTION FRACTION 60-65%. NORMAL WALL MOTION. MILD MITRAL AND PULMONARY REGURGITATION. TECHNOLOGIST: Je BUCKLEY
--- NOTE | 2021-11-26 14:51 | PN ---
Date of Progress Note: 11/26/2021 Ms. Wharton was admitted with congestive heart failure, mild by chest x-ray, BNP is 3372, short of osvaldo th, weak with poor blood pressure control and edema. Dr. Frost took her off the [facility] because of e lucy with increasing the hydralazine dose. Her blood pressure today is still elevated at 176/72. Sh e is in sinus rhythm. Edema has improved. Her white count was 96538 today. There is an echocardiog sandee pending for diastolic congestive heart failure. Her atrial fibrillation is controlled. She is i n sinus rhythm. Her dementia is stable. She is on Eliquis, Pepcid, Lasix, hydralazine, sotalol, and clonidine. I agree with the present regimen. Continue her present regimen. We will see what the swathi berman shows. Hopefully, she will go home today or tomorrow. WANDA/NORA Voice ID: [id number] Report ID: [id number]
--- NOTE | 2021-11-26 17:34 | P.PN ---
Subjective Date of Service: 11/26/21 Chief Complaint: SHORT OF BREATH Subjective: Improving SHE IS A LOT BETTER. MUCH MORE AWAKE. DENIES PAIN. Physical Examination - Vital Signs Temperature: 97.7 F Blood Pressure: 141/63 Pulse: 54 Respirations: 18 Pulse Ox (%): 96 - Physical Exam General: Oriented x2, Mild distress HEENT: Atraumatic, PERRLA, EOMI Neck: Supple, JVD not distended Respiratory: Clear to auscultation bilaterally, Normal air movement Cardiovascular: Regular rate/rhythm, Normal S1 S2 Gastrointestinal: Normal bowel sounds, No tenderness Musculoskeletal: No tenderness Integumentary: No rashes Neurological: Normal speech, Normal tone, Normal affect Lymphatics: No axilla or inguinal lymphadenopathy - Studies Microbiology Data (last 24 hrs): 11/24/21 16:45 Catheterized Urine [place] Count - Final No growth. 11/24/21 16:45 Catheterized Urine - Final No growth. Medications List Reviewed: Yes Assessment And Plan - Current Problems (Diagnosis) (1) CHF, acute Current Visit: Yes Status: Acute Plan: ECHO WILL TELL US IF LOW EF. I SUSPECT DIASTOLIC DYSFUNCTION. WATCH DAILY LAB CONT DIURESIS. NORMAL EF SHE HAS ACUTE DIASTOLIC DYSFUNCTION. (2) A-fib Current Visit: Yes Status: Chronic Plan: ALREADY ON ANTICOAG. RATE CONTROLLED. REDUCED DOSE OF SOTALOL HR WAS DOWN TO 48. (3) A-fib Current Visit: Yes Status: Acute (4) Metabolic encephalopathy Current Visit: Yes Status: Acute Plan: HYPONATREMIA, ACUTE ILLNESS ARE THE REASON. (5) Hyponatremia Current Visit: No Status: Chronic Plan: WATCH LAB. AY NEED FLUID RESTRICTION. MAY GET WORSE WITH DIURETICS (6) Seizure disorder Current Visit: No Status: Chronic Plan: NO TONIC CLONIC. MAY HAVE ABSENCE SEIZURES.
[2021-11-27] MEDS: SOTALOL HCL 80 MG TAB PO SCH ×2 (05:19→17:30)
[2021-11-27 06:11] LABS: Absolute Lymphocytes (CBC) 2.9 K/uL (0.7-4.9); Hematocrit 33.2 % (36.0-45.0); Lymphocytes % 25.5 % (15.3-44.8); MPV 9.3 fL (7.6-11.3); RBC Red Blood Cell Count 3.93 M/uL (3.86-4.86)
[2021-11-27 06:25] LABS: Potassium 4.3 mmol/L (3.5-5.1)
[2021-11-27] MEDS: APIXABAN 5 MG TABLET PO SCH ×2 (09:44→21:17)
[2021-11-27] MEDS: OXYBUTYNIN CHLORIDE 5 MG TAB PO SCH ×2 (09:44→21:17)
[2021-11-27] MEDS: HYDRALAZINE HCL 25 MG TABLET PO SCH ×3 (09:44→21:16)
[2021-11-27] MEDS: VITAMIN D 5,000 UNIT CAP PO SCH (09:44)
[2021-11-27] MEDS: POTASSIUM 25 MEQ EFFERV TAB PO SCH ×2 (09:44→21:16)
[2021-11-27] MEDS: levETIRAcetam 500 MG TAB PO SCH (09:44)
[2021-11-27] MEDS: FUROSEMIDE 20 MG/ 2ML VIAL IV SCH ×2 (09:44→17:30)
[2021-11-27] MEDS: MULTIVITAMIN TAB PO SCH (09:44)
[2021-11-27] MEDS: FAMOTIDINE 20 MG TAB PO SCH ×2 (09:54→21:17)
--- NOTE | 2021-11-27 12:52 | P.PN ---
Subjective Date of Service: 11/27/21 Chief Complaint: SHORT OF BREATH Subjective: Improving SHE IS A LOT BETTER. MUCH MORE AWAKE. DENIES PAIN. SHE IS A LOT BETTER. WALKING AROUND NURSES STATION TODAY. TALKED TO DAUGHTER TO GIVE UPDATE. Physical Examination - Vital Signs Temperature: 97.1 F Blood Pressure: 121/59 Pulse: 57 Respirations: 16 Pulse Ox (%): 94 - Physical Exam General: Oriented x3, Mild distress HEENT: Atraumatic, PERRLA, EOMI Neck: Supple, JVD not distended Respiratory: Clear to auscultation bilaterally, Normal air movement Cardiovascular: Regular rate/rhythm, Normal S1 S2 Gastrointestinal: Normal bowel sounds, No tenderness Musculoskeletal: No tenderness Integumentary: No rashes Neurological: Normal speech, Normal tone, Normal affect Lymphatics: No axilla or inguinal lymphadenopathy - Studies Medications List Reviewed: Yes Assessment And Plan - Current Problems (Diagnosis) (1) CHF, acute Current Visit: Yes Status: Acute Plan: ECHO WILL TELL US IF LOW EF. I SUSPECT DIASTOLIC DYSFUNCTION. WATCH DAILY LAB CONT DIURESIS. NORMAL EF SHE HAS ACUTE DIASTOLIC DYSFUNCTION. WILL FU AND GET ORAL DIURETIC FOR HOME. Qualifiers: Heart failure type: diastolic Qualified Code(s): I50.31 - Acute diastolic (congestive) heart failure (2) A-fib Current Visit: Yes Status: Chronic Plan: ALREADY ON ANTICOAG. RATE CONTROLLED. REDUCED DOSE OF SOTALOL HR WAS DOWN TO 48. (3) A-fib Current Visit: Yes Status: Acute (4) Metabolic encephalopathy Current Visit: Yes Status: Acute Plan: HYPONATREMIA, ACUTE ILLNESS ARE THE REASON. (5) Hyponatremia Current Visit: No Status: Chronic Plan: WATCH LAB. AY NEED FLUID RESTRICTION. MAY GET WORSE WITH DIURETICS (6) Seizure disorder Current Visit: No Status: Chronic Plan: NO TONIC CLONIC. MAY HAVE ABSENCE SEIZURES.
[2021-11-27 15:44] VITALS: O2SAT 97
[2021-11-28 00:04] VITALS: TEMP 97.5
[2021-11-28 04:52] VITALS: BP 128/63
[2021-11-28] MEDS: SOTALOL HCL 80 MG TAB PO SCH (06:00)
[2021-11-28 06:19] LABS: Hematocrit 32.4 % (36.0-45.0); Lymphocytes % 26.1 % (15.3-44.8); MPV 9.4 fL (7.6-11.3); RBC Red Blood Cell Count 3.81 M/uL (3.86-4.86)
[2021-11-28 06:23] LABS: Potassium 4.1 mmol/L (3.5-5.1)
[2021-11-28] MEDS: MULTIVITAMIN TAB PO SCH (08:53)
[2021-11-28] MEDS: VITAMIN D 5,000 UNIT CAP PO SCH (08:53)
[2021-11-28] MEDS: HYDRALAZINE HCL 25 MG TABLET PO SCH (08:54)
[2021-11-28] MEDS: APIXABAN 5 MG TABLET PO SCH (08:54)
[2021-11-28] MEDS: OXYBUTYNIN CHLORIDE 5 MG TAB PO SCH (08:54)
[2021-11-28] MEDS: FAMOTIDINE 20 MG TAB PO SCH (08:55)
[2021-11-28] MEDS: levETIRAcetam 500 MG TAB PO SCH (08:55)
[2021-11-28] MEDS ORDERED: POTASSIUM CL SA 10 MEQ TAB PO SCH (09:00)
[2021-11-28] MEDS ORDERED: FUROSEMIDE 20 MG TABLET PO SCH (09:00)
--- NOTE | 2021-11-28 11:06 | EKG ---
Test Date: 2021-11-25 Test Time: 04:02:54 Working Second Hand: RT-O MEASUREMENT RESULTS: Intervals: Rate: 52 NM: 216 QRSD: 110 QT: 542 QTc: 504 [place]: P: 37 NM: 216 QRS: -65 T: 66 INTERPRETIVE STATEMENTS: Sinus bradycardia with 1st degree AV block Left atrial enlargement Left anterior fascicular block Left ventricular hypertrophy with repolarization abnormality Prolonged QT Abnormal ECG Compared to ECG 11/24/2021 15:52:11 Left ventricular hypertrophy now present Early repolarization now present Prolonged QT interval now present Incomplete right bundle-branch block no longer present Electronically Signed On 11-28-21 10:58:26 CDT by Ashutosh Prajapati
--- NOTE | 2021-11-28 21:21 | P.DS ---
Admission Date: 11/24/21 Discharge Date: 11/28/21 Disposition: ROUTINE DISCHARGE Discharge Condition: FAIR Reason for Admission: SHORT OF BREATH - Problems (1) CHF, acute Status: Acute Qualifiers: Heart failure type: diastolic Qualified Code(s): I50.31 - Acute diastolic (congestive) heart failure (2) A-fib Status: Chronic (3) A-fib Status: Acute (4) Metabolic encephalopathy Status: Acute (5) Hyponatremia Status: Chronic (6) Seizure disorder Status: Chronic Brief History of Present Illness: DHIRAJ HAS HTN, A FIB, SIADH, SEIZURE DISORDER WHO CAME TO OFFICE WITH LETHARGY. WE REDUCED THE DOSE OFKEPPRA NO OTHER REASONS WERE DETECTED. HER SODIUM WAS MILD LOW AND BNP WAS 500. DAUGHTER LATER CALLED THAT SHE WAS SHORT OF BREATH. I ASKED HER TO BE BROUGHT TO ER. SHE HAS MILD CHF. Hospital Course: DHIRAJ IS PATIENT WITH HTN, SIADH, HISTORY OF ATYPICAL SEIZURES. SHE COMES TO OFFICE WITH LETHARGY. I SAW NO SIGNS OF CHF AT THAT POINT. HER LAB SHOWED MILD HIGH BNP BUT LATER I HAD TOLD THE DAUGHTER SHE BROUGHT HER TO ER WHEN SHE GOT DYSPNEIC. SHE IMPROVED ON GENTLE DIURESIS, WAS ABLE TO WALK WITH WALKER. SHE IS STABLE TO GO HOME WITH HOME HEALTH SHE ALREADY HAS. Vital Signs/Physical Exam: Temp Pulse Resp BP Pulse Ox 97.5 F 67 17 128/63 98 11/28/21 04:00 11/28/21 04:00 11/28/21 04:00 11/28/21 04:00 11/28/21 04:00 Laboratory Data at Discharge: WBC 11.7 K/uL (4.3-10.9) H 11/28/21 05:53 Hgb 10.7 g/dL (12.0-15.0) L 11/28/21 05:53 Hct 32.4 % (36.0-45.0) L 11/28/21 05:53 Plt Count 299 K/uL (152-406) 11/28/21 05:53 PT 16.2 SECONDS (9.5-12.5) H 11/24/21 16:07 INR 1.46 11/24/21 16:07 Sodium 129 mmol/L (136-145) L 11/28/21 05:53 Potassium 4.1 mmol/L (3.5-5.1) 11/28/21 05:53 BUN 30 mg/dL (7-18) H 11/28/21 05:53 Creatinine 1.13 mg/dL (0.55-1.3) 11/28/21 05:53 Glucose 101 mg/dL (74-106) 11/28/21 05:53 Home Medications: Oxybutynin Chloride [Ditropan*] 1 tab PO BID 11/10/13 cloNIDine HCL [Clonidine HCl] 1 tab PO Q4H PRN 08/10/21 Apixaban [Eliquis] 5 mg PO BID 11/24/21 Ascorbic Acid [Vitamin C*] 500 mg PO BID 11/24/21 Biotin 5 mg PO DAILY 11/24/21 Calcium Carb, Citrate/Vit D3 [Citracal-D3 ER 600 mg-500 Unit] 2 tab PO BID 11/24/21 Cholecalciferol (Vitamin D3) [Vitamin D 5,000 IU Cap*] 5,000 unit PO DAILY 11/24/21 Famotidine [Pepcid*] 20 mg PO BID 11/24/21 Gluc Bobby/Chondro Bobby A/Vit C/Mn [Glucosamine-Chondroitin Cap] 1 each PO BID 11/24/21 Glutathione 2 cap PO 1600 11/24/21 Hydralazine HCl [Apresoline] 50 mg PO TID 11/24/21 Multivitamin with Folic Acid [Daily-Nicole Tablet] 1 each PO DAILY 11/24/21 Propylene Glycol/Peg 400 [Systane 0.3-0.4% Eye Drops] 1 gtt EACH EYE BID 11/24/21 Propylene Glycol/Peg 400/Pf [Systane 0.3-0.4% Eye Drops] 1 each OP Q6HP PRN 11/24/21 Triamcinolone 0.1% Crm [Kenalog 0.1% Cream*] 15 appl TOP Q12HP PRN 11/24/21 Vit C/E/Zn/Coppr/Lutein/Zeaxan [Preservision Areds 2 Softgel] 2 cap PO DAILY 11/24/21 levETIRAcetam [Levetiracetam] 250 mg PO DAILY 11/24/21 Furosemide 20 mg PO DAILY #90 tablet 11/28/21 Potassium Oral Tab [Klor-Con 10 mEq Tab] 10 meq PO DAILY #90 tab 11/28/21 Sotalol HCl [Betapace AF] 40 mg PO BID #90 tablet 11/28/21 New Medications: Sotalol HCl [Betapace AF] 40 mg PO BID #90 tablet Furosemide 20 mg PO DAILY #90 tablet Potassium Oral Tab [Klor-Con 10 mEq Tab] 10 meq PO DAILY #90 tab Followup: Jeremy Frost MD [ACTIVE - CAN ADMIT] - 1-2 Weeks (call to schedule an appointment )
== END 2021-11-28 09:55 | disposition home or self-care (01) | DRG 291 ==
LOC: ER 15:12 → ERHOLD 17:08 → 2ND 21:57
PROVIDERS: ADMIT Internal Medicine; ATTEND Internal Medicine
DX: I11.0 Hypertensive heart disease with heart failure (principal); I50.31 Acute diastolic (congestive) heart failure; G93.41 Metabolic encephalopathy; E22.2 Syndrome of inappropriate secretion of antidiuretic hormone; I48.20 Chronic atrial fibrillation, unspecified; G40.909 Epilepsy, unspecified, not intractable, without status epilepticus; F01.50 Vascular dementia, unspecified severity, without behavioral disturbance, psychotic disturbance, mood disturbance, and anxiety; Z91.040 Latex allergy status; Z79.01 Long term (current) use of anticoagulants; Z20.822 Contact with and (suspected) exposure to COVID-19
CPT/HCPCS: 36415; 51702; 71045; 80048; 80184; 81003; 83605; 83880; 83930; 83935; 84132; 84145; 84300; 84484; 85025; 85610; 87040; 87086; 87088; 93005; 93306; 96365; 96375; 97110; 97116; 97161; 97530; 99285; J1940; J2920; J2930; J3490; J7040; U0003

== ENCOUNTER 2021-12-21 23:06 | Inpatient (IN) | payer OTHER ==
[2021-12-21 23:38] LABS: Urine Blood Trace-intact (Negative); Urine Glucose Negative (Negative); Urine Protein 1+ (Negative); Urine Specific Gravity 1.015 (1.005-1.030)
[2021-12-22 00:12] LABS: Barbiturates NEGATIVE (NEGATIVE); Benzodiazepines NEGATIVE (NEGATIVE); Cocaine NEGATIVE (NEGATIVE); METHAMPHETAM NEGATIVE (NEGATIVE); Methadone NEGATIVE (NEGATIVE); Opiates NEGATIVE (NEGATIVE); Phencyclidine NEGATIVE (NEGATIVE); THC Cannibis NEGATIVE (NEGATIVE)
[2021-12-22] MEDS ORDERED: CEFTRIAXONE 1000 MG/VIAL ONE ×2 (00:12→12:24)
[2021-12-22] MEDS ORDERED: NA CHLORIDE 0.9% 50 ML ONE ×3 (00:12→22:10)
[2021-12-22 00:22] LABS: Absolute Lymphocytes (CBC) 2.3 K/uL (0.7-4.9); Hematocrit 30.4 % (36.0-45.0); Lymphocytes % 27.6 % (15.3-44.8); MPV 8.8 fL (7.6-11.3); RBC Red Blood Cell Count 3.63 M/uL (3.86-4.86)
[2021-12-22 00:30] LABS: Protime INR 1.49
[2021-12-22 00:59] LABS: Albumin 2.9 g/dL (3.4-5.0); Bilirubin Direct 0.1 mg/dL (0-0.2); Bilirubin Total 0.3 mg/dL (0.2-1.0); Magnesium 1.9 mg/dL (1.8-2.4); Potassium 3.3 mmol/L (3.5-5.1); Protein, Total 8.1 g/dL (6.4-8.2); Troponin High Sensitivity 27.7 pg/mL (<58.9)
[2021-12-22 02:22] LABS: SARS-COV-2 RT PCR NEGATIVE (NEGATIVE)
[2021-12-22] MEDS ORDERED: NA CHLORIDE 0.9% 500 ML ONE ×2 (03:41→08:08)
--- NOTE | 2021-12-22 03:54 | EDPHYS ---
Physician Documentation [facility] Name: Larissa Wharton Age: 86 yrs Sex: Female : 1935 Arrival Date: 12/21/2021 Time: 23:08 Bed 6 Private MD: ED Physician Joey Seth HPI: 12/21 23:23 This 86 yrs old Female presents to ER via EMS with complaints of Altered Mental Status. mh7 23:23 The patient presents with confusion, decreased mental status, decreased responsiveness. mh7 Onset: The symptoms/episode began/occurred 3 day(s) ago. Possible causes: unknown. Associated signs and symptoms: Pertinent positives: confusion. Current symptoms: In the emergency department the patient's symptoms are unchanged from the initial presentation, despite EMS interventions. Unable to obtain HPI due to altered mental status. Historical: - Allergies: 23:20 Cephalexin; tw5 23:20 Latex, Natural Rubber; tw5 23:20 Phenytoin; tw5 23:20 Dilantin; tw5 - PMHx: 23:20 a fib; Dementia; Hypertensive disorder; tw5 - Immunization history:: Client reports receiving the 2nd dose of the Covid vaccine, Moderna. - Social history:: Smoking status: Patient denies any tobacco usage or history of. ROS: 23:23 Unable to obtain ROS due to altered mental status. mh7 Exam: 23:23 Head/Face: Normocephalic, atraumatic. Eyes: Pupils equal round and reactive to light, mh7 extra-ocular motions intact. Lids and lashes normal. Conjunctiva and sclera are non-icteric and not injected. Cornea within normal limits. Periorbital areas with no swelling, redness, or edema. Neck: Trachea midline, no thyromegaly or masses palpated, and no cervical lymphadenopathy. Supple, full range of motion without nuchal rigidity, or vertebral point tenderness. No Meningismus. Chest/axilla: Normal chest wall appearance and motion. Nontender with no deformity. No lesions are appreciated. 23:23 Abdomen/GI: Soft, non-tender, with normal bowel sounds. No distension or tympany. No guarding or rebound. No evidence of tenderness throughout. Back: No spinal tenderness. No costovertebral tenderness. Full range of motion. Skin: Warm, dry with normal turgor. Normal color with no rashes, no lesions, and no evidence of cellulitis. MS/ Extremity: Pulses equal, no cyanosis. Neurovascular intact. Full, normal range of motion. 23:23 Constitutional: The patient appears obviously ill, Somnolent but arousable to voice, touch 23:23 Cardiovascular: Rate: bradycardic, Rhythm: regular, Pulses: no pulse deficits are appreciated, Heart sounds: normal, normal S1and S2, Edema: is not appreciated, JVD: is not appreciated. 23:23 Respiratory: the patient does not display signs of respiratory distress, Respirations: prolonged exhalation, that is mild, Breath sounds: decreased breath sounds, that are mild, are located in both bases, rhonchi, that are mild, are scattered, Respiratory rate: 18 Vital Signs: 23:16 BP 198 / 86; Pulse 54; Resp 16; Temp 92.1; Pulse Ox 92% on R/A; Weight 65.77 kg; Height tw5 4 ft. 11 in. (149.86 cm); 12/22 00:04 BP 126 / 69; Pulse 47; Resp 14; Temp 92.4(C); Pulse Ox 90% on R/A; tw5 01:18 BP 166 / 69; Pulse 48; Resp 12; Temp 92.5(C); Pulse Ox 92% on R/A; sm5 02:43 BP 99 / 43; Pulse 48; Resp 12; Temp 93.2(C); Pulse Ox 96% on 3 lpm NC; sm5 03:33 BP 114 / 56; Pulse 49; Resp 14; Temp 93.4(C); Pulse Ox 97% on 3 lpm NC; sm5 03:38 BP 114 / 56; Pulse 48; Resp 12; Temp 93.4(C); Pulse Ox 98% on 3 lpm NC; tw5 12/21 23:16 Body Mass Index 29.29 (65.77 kg, 149.86 cm) tw5 Jud Coma Score: 12/21 23:24 Eye Response: to voice(3). Verbal Response: none(1). Motor Response: withdraws from tw5 pain(4). Total: 8. 12/22 05:21 Eye Response: spontaneous(4). Verbal Response: confused(4). Motor Response: obeys tw5 commands(6). Total: 14. Procedures: 10:17 Central Line: the site was prepped with Betadine, in sterile fashion, a triple lumen armando catheter was inserted, in the right femoral vein, in 1 attempts. placement was verified, by blood return, the site was dressed with using sterile technique, the patient tolerated the procedure, well. MDM: 03:50 Differential Diagnosis: CVA, electrolyte abnormality, hypoglycemia, intracranial bleed, mh7 pneumonia, seizure, sepsis, TIA, UTI, volume depletion. Data reviewed: vital signs, nurses notes, EMS record, custodial records, old medical records, lab test result(s), cardiac enzymes, CBC, electrolytes, urinalysis, EKG, radiologic studies, CT scan, plain films. Data interpreted: Pulse oximetry: on 3L(s) per nasal canula, is 98 %. Interpretation: acceptable. Counseling: I had a detailed discussion with the patient and/or guardian regarding: the historical points, exam findings, and any diagnostic results supporting the discharge/admit diagnosis, lab results, radiology results, the need for further work-up and treatment in the hospital. Response to treatment: the patient's symptoms have mildly improved after treatment. 03:53 Patient medically screened. [facility] 12/21 23:19 Order name: Basic Metabolic Panel; Complete Time: 01:03 [facility] 12/21 23:19 Order name: CBC with Diff; Complete Time: 00:33 [facility] 12/21 23:19 Order name: LFT's; Complete Time: 01:12 [facility] 12/21 23:19 Order name: Magnesium; Complete Time: 01:12 [facility] 12/21 23:19 Order name: NT PRO-BNP; Complete Time: 01:12 [facility] 12/21 23:19 Order name: PT-INR; Complete Time: 01:12 [facility] 12/21 23:19 Order name: Troponin HS; Complete Time: 01:12 [facility] 12/21 23:19 Order name: Blood Culture Adult (2) [facility] 12/21 23:19 Order name: Urine Culture [facility] 12/21 23:19 Order name: Lactate; Complete Time: 01:12 [facility] 12/21 23:19 Order name: Procalcitonin; Complete Time: 02:20 [facility] 12/21 23:21 Order name: UDS; Complete Time: 01:12 [facility] 12/21 23:22 Order name: ETOH Level; Complete Time: 01:12 7 12/21 23:22 Order name: Acetaminophen; Complete Time: 01:12 7 12/21 23:19 Order name: XRAY Chest (1 view) [facility] 12/21 23:22 Order name: Salicylate; Complete Time: 01:12 7 12/21 23:22 Order name: AMMONIA; Complete Time: 00:46 7 12/21 23:38 Order name: Urine Dipstick-Ancillary; Complete Time: 23:58 EDMS 12/22 01:28 Order name: COVID-19/FLU A+B (Document "Date of Onset" if Symptomatic); Complete Time: lp1 02:52 12/22 04:09 Order name: ABG Arterial Blood Gas; Complete Time: 06:46 EDMS 12/22 04:09 Order name: Basic Metabolic Panel EDMS 12/22 04:09 Order name: Basic Metabolic Panel EDMS 12/22 04:09 Order name: CBC with Manual Differential EDMS 12/22 04:09 Order name: CBC with Manual Differential EDMS 12/22 04:09 Order name: CKMB Creatine Kinase MB EDMS 12/22 04:09 Order name: CKMB Creatine Kinase MB; Complete Time: 06:46 EDMS 12/22 04:09 Order name: CKMB Creatine Kinase MB EDMS 12/22 04:09 Order name: Creatine Phosphokinase EDMS 12/22 04:09 Order name: Creatine Phosphokinase; Complete Time: 06:46 EDMS 12/22 04:09 Order name: Creatine Phosphokinase EDMS 12/21 23:19 Order name: EKG; Complete Time: 23:20 7 12/21 23:19 Order name: Cardiac monitoring; Complete Time: 23:38 7 12/21 23:19 Order name: EKG - Nurse/Tech; Complete Time: 00:50 7 12/21 23:19 Order name: IV Saline Lock; Complete Time: 23:38 7 12/21 23:19 Order name: Labs collected and sent; Complete Time: 00:03 7 12/21 23:19 Order name: O2 Per Protocol; Complete Time: 23:38 7 12/21 23:19 Order name: O2 Sat Monitoring; Complete Time: 23:38 7 12/21 23:19 Order name: Urine Dipstick-Ancillary (obtain specimen); Complete Time: 23:38 7 12/21 23:22 Order name: CT Head Brain wo Cont 7 12/21 23:26 Order name: Head Brain Wo Cont EDNV 12/22 04:09 Order name: EKG Electrocardiogram EDNV 12/22 08:36 Order name: Central Line Kit; Complete Time: 10:30 armando Administered Medications: 00:08 Drug: Rocephin (cefTRIAXone) 1 grams Route: IV; Rate: per protocol; Site: left tw5 antecubital; 03:41 Drug: NS 0.9% 500 ml Route: IV; Rate: bolus; Site: right antecubital; tw5 Disposition Summary: 12/22/21 03:53 Hospitalization Ordered Hospitalization Status: Inpatient Admission [facility] Provider: Jeremy Frost Condition: Stable [facility] Problem: new [facility] Symptoms: have improved [facility] Bed/Room Type: Standard [facility] Location: Intensive Care Unit(12/22/21 18:36) dw Room Assignment: 1-(12/22/21 18:36) Diagnosis - Altered mental status, unspecified [facility] - Sepsis, unspecified organism [facility] - UTI/ Urinary tract infection, site not specified [facility] Forms: - Medication Reconciliation Form [facility] - SBAR form [facility] Signatures: Dispatcher [employer] [facility] Mela Donnelly RN Sidra Miranda RN Joey El MD MD cha Attema, Lee, NEWSPAPER WRITER-C NEWSPAPER WRITER-Cla1 Anand Neely MD MD lOya Noble tw5 Corrections: (The following items were deleted from the chart) 05: 03:53 Telemetry/MedSurg (Inpatient) formerly [facility] 05:23 03:53 [facility] mw 18:36 05:23 [facility] ER HOLD mw 18:36 05:23 ERHOLD- [facility]
--- NOTE | 2021-12-22 03:54 | ER ---
Nurse's Notes [facility] Name: Larissa Wharton Age: 86 yrs Sex: Female : 1935 Arrival Date: 12/21/2021 Time: 23:08 Bed 6 Private MD: Diagnosis: Altered mental status, unspecified;Sepsis, unspecified organism;UTI/ Urinary tract infection, site not specified Presentation: 12/21 23:16 Chief complaint: EMS states: "She [place] She has been being tw5 treated for an UTI for the past three days and she has been becoming increasingly confused. Her last known well was 9 PM. They went to go check on her and they found her unresponsive.". Coronavirus screen: unknown. Ebola Screen: Patient negative for fever greater than or equal to 101.5 degrees Fahrenheit, and additional compatible Ebola Virus Disease symptoms Patient denies exposure to infectious person. Patient denies travel to an Ebola-affected area in the 21 days before illness onset. Initial Sepsis Screen: Does the patient meet any 2 criteria? RR > 20 per min. Temp <36.0*C (96.8*F)) or > 38.3*C (100.9*F). Altered Mental Status. Yes Does the patient have a suspected source of infection? Yes: Dysuria/Frequency/Urgency/UTI If YES to both, name of provider notified: Anand Neely MD Risk Assessment: Do you want to hurt yourself or someone else? Unable to obtain. Onset of symptoms was December 21, 2021 at 21:00. 23:16 Method Of Arrival: EMS: [facility] tw5 23:16 Acuity: SHELDON 2 tw5 Triage Assessment: 23:20 General: Appears ill, Behavior is unresponsive. Pain: Unable to use pain scale. Patient tw5 is disoriented. Neuro: Level of Consciousness is lethargic, Oriented to none. Historical: - Allergies: 23:20 Cephalexin; tw5 23:20 Latex, Natural Rubber; tw5 23:20 Phenytoin; tw5 23:20 Dilantin; tw5 - PMHx: 23:20 a fib; Dementia; Hypertensive disorder; tw5 - Immunization history:: Client reports receiving the 2nd dose of the Covid vaccine, Moderna. - Social history:: Smoking status: Patient denies any tobacco usage or history of. Screenin:24 Abuse screen: Denies threats or abuse. Denies injuries from another. Nutritional tw5 screening: No deficits noted. Tuberculosis screening: No symptoms or risk factors identified. Fall Risk Secondary diagnosis (15 points). Assessment: 23:24 General: Neyda, the Daughter is at the bedside answering questions.. Neuro: tw5 12/22 00:04 Reassessment: No changes from previously documented assessment. tw5 00:04 Cardiovascular: Rhythm is sinus bradycardia. Respiratory: Airway is patent. tw5 03:38 Neuro: Oriented to person. tw5 Vital Signs: 12/21 23:16 BP 198 / 86; Pulse 54; Resp 16; Temp 92.1; Pulse Ox 92% on R/A; Weight 65.77 kg; Height tw5 4 ft. 11 in. (149.86 cm); 12/22 00:04 BP 126 / 69; Pulse 47; Resp 14; Temp 92.4(C); Pulse Ox 90% on R/A; tw5 01:18 BP 166 / 69; Pulse 48; Resp 12; Temp 92.5(C); Pulse Ox 92% on R/A; sm5 02:43 BP 99 / 43; Pulse 48; Resp 12; Temp 93.2(C); Pulse Ox 96% on 3 lpm NC; sm5 03:33 BP 114 / 56; Pulse 49; Resp 14; Temp 93.4(C); Pulse Ox 97% on 3 lpm NC; sm5 03:38 BP 114 / 56; Pulse 48; Resp 12; Temp 93.4(C); Pulse Ox 98% on 3 lpm NC; tw5 12/21 23:16 Body Mass Index 29.29 (65.77 kg, 149.86 cm) tw5 [place] Coma Score: 12/21 23:24 Eye Response: to voice(3). Verbal Response: none(1). Motor Response: withdraws from tw5 pain(4). Total: 8. 12/22 05:21 Eye Response: spontaneous(4). Verbal Response: confused(4). Motor Response: obeys tw5 commands(6). Total: 14. ED Course: 12/21 23:08 Patient arrived in ED. wm 23:11 Anand Neely MD is Attending Physician. mh7 23:15 Olya Espinosa is Primary Nurse. tw5 23:15 Hernandez cath inserted, using sterile technique, 18 Fr., by me, balloon inflated, to tw5 gravity drainage, urine specimen collected. returned cloudy urine. 23:20 Triage completed. tw5 23:24 Maintain EMS IV. Dressing intact. Good blood return noted. Site clean \\T\\ dry. Gauge \\T\\ tw 5 site: 20 G RAC. 23:24 Patient has correct armband on for positive identification. Placed in gown. Bed in low tw5 position. Call light in reach. Side rails up X 1. Adult w/ patient. Client placed on continuous cardiac and pulse oximetry monitoring. NIBP monitoring applied. Door closed. Noise minimized. Moved to private room. Warm blanket given. Verbal reassurance given. Cristiane hugger applied. 23:38 Urine Culture Sent. sm5 23:45 Initial lab(s) drawn, by me, sent to lab. First set of blood cultures drawn by me. tw5 05 00:03 AMMONIA Sent. tw5 00:03 UDS Sent. tw5 00:03 Salicylate Sent. tw5 00:03 ETOH Level Sent. tw5 00:03 Procalcitonin Sent. tw5 00:03 Urine Culture Sent. tw5 00:03 Acetaminophen Sent. tw5 00:03 Blood Culture Adult (2) Sent. tw5 00:03 Lactate Sent. tw5 00:03 Basic Metabolic Panel Sent. tw5 00:03 Magnesium Sent. tw5 00:03 NT PRO-BNP Sent. tw5 00:03 CBC with Diff Sent. tw5 00:03 LFT's Sent. tw5 00:03 PT-INR Sent. tw5 00:03 Troponin HS Sent. tw5 00:04 Inserted saline lock: 20 gauge in left antecubital area, using aseptic technique. Blood tw5 collected. 00:05 Second set of blood cultures drawn by me. tw5 00:31 Head Brain Wo Cont In Process Unspecified. EDMS 00:50 Basic Metabolic Panel Sent. lp1 00:50 LFT's Sent. lp1 00:50 Magnesium Sent. lp1 00:50 NT PRO-BNP Sent. lp1 00:50 Troponin HS Sent. lp1 01:12 XRAY Chest (1 view) In Process Unspecified. EDMS 01:55 COVID-19/FLU A+B (Document "Date of Onset" if Symptomatic) Sent. [facility] 03:52 Jeremy Frost MD is Hospitalizing Provider. [facility] 07:48 Attending Physician role handed off by Anand Neely MD cha 07:48 Joey Seth MD is Attending Physician. [facility] 21:30 Assisted provider with central line placement. Patient admitted, IV remains in place. as6 Administered Medications: 00:08 Drug: Rocephin (cefTRIAXone) 1 grams Route: IV; Rate: per protocol; Site: left tw5 antecubital; 03:41 Drug: NS 0.9% 500 ml Route: IV; Rate: bolus; Site: right antecubital; tw5 Outcome: 03:53 Decision to Hospitalize by Provider. [facility] 21:30 Admitted to ICU accompanied by nurse, accompanied by tech, family with patient, via as6 stretcher, room 3, with oxygen, on monitor, with chart. 21:30 Condition: stable 21:31 Patient left the ED. as6 Signatures: Dispatcher [employer] EDMS Joey Seth MD MD cha Pena, Laura, RN RN lp1 Anand Neely MD MD Nataly Curry Tiffany 5 Juan Toledo, TITO RN as6 Evelin Gillette RN RN 5
[2021-12-22] MEDS ORDERED: NA CHLORIDE 0.9% 500 ML IV ONE (04:03)
[2021-12-22] MEDS ORDERED: ONDANSETRON 4 MG/2 ML VIAL IV PRN (04:05)
[2021-12-22 04:40] LABS: Arterial Blood Carboxyhemoglob 1.3 % (0-1.5); Blood Gas Oxyhemoglobin 93.9 % (94-97); Blood O2 Saturation 96.4 % (92-98.5)
[2021-12-22 06:20] LABS: CKMB Creatine Kinase MB 2.9 ng/mL (1.0-3.6)
[2021-12-22 06:52] VITALS: BMI 29.2
[2021-12-22 08:43] LABS: Absolute Lymphocytes (CBC) 1.6 K/uL (0.7-4.9); Hematocrit 25.8 % (36.0-45.0); Lymphocytes % 24.9 % (15.3-44.8); MPV 8.7 fL (7.6-11.3); RBC Red Blood Cell Count 3.12 M/uL (3.86-4.86)
[2021-12-22 08:57] LABS: Potassium 3.3 mmol/L (3.5-5.1)
[2021-12-22] MEDS ORDERED: AZTREONAM 2 GM in NA CHLORIDE 0.9% 100 ML IV SCH (09:00)
[2021-12-22] MEDS ORDERED: PNEUMOCOCCAL VACCINE 0.5 ML IMVAC ONE (09:00)
[2021-12-22 09:01] LABS: CKMB Creatine Kinase MB 2.5 ng/mL (1.0-3.6)
[2021-12-22 09:10] LABS: Blood Morphology Comment NOT SEEN (NOT SEEN); Platelet Estimate ADEQ
[2021-12-22] MEDS ORDERED: NOREPINEPHRINE 4 MG in D5W 250 ML IV SCH (10:00)
[2021-12-22] MEDS: CEFTRIAXONE 1,000 MG in NA CHLORIDE 0.9% 50 ML IVPB SCH ×2 (12:00→21:33)
--- NOTE | 2021-12-22 20:25 | P.HP ---
Certification for Inpatient Patient admitted to: Inpatient With expected LOS: >2 Midnights Practitioner: I am a practitioner with admitting privileges, knowledge of patient current condition, hospital course, and medical plan of care. Services: Services provided to patient in accordance with Admission requirements found in Title 42 Section 412.3 of the Code of Federal Regulations Patient History Date of Service: 12/22/21 Reason for admission: WEAK, LOW BP History of Present Illness: DHIRAJ HAS HTN, SEIZURES, A FIB AND RECENTLY HAD MORE CONFUSION WHEN DAUGHTER CALLED US I ORDERED UA AND CULTURE, STARTED HER ON CIPRO, LATER FOUND FROM CULTURE THAT UTI WAS RESISTANT TO CIPRO SO I CHANGED TO AUGMENTIN BUT BEFORE IT HAD TIME TO WORK SHE ENDS UP IN SendRR. HER BP ON ADMISSION WAS 70 SYSTOLIC. SHE IS BETTER AFTER IV FULIDS BUT BP KEEPS ON DROPPING TO 70 SO I ASKED TO START LEVOPHED DRIPS. I TALKED TO DAUGHTER AT BEDSIDE. Allergies latex [Latex] Allergy (Intermediate, Verified 11/10/13 01:26) Hives/Rash cephalexin [From Keflex] Adverse Reaction (Intermediate, Verified 11/24/21 22:43) AGITATION phenytoin [From Dilantin] Adverse Reaction (Intermediate, Verified 11/24/21 22:43) AGITATION Home medications list reviewed: Yes Home Medications: Oxybutynin Chloride [Ditropan*] 1 tab PO BID 11/10/13 cloNIDine HCL [Clonidine HCl] 1 tab PO Q4H PRN 08/10/21 Apixaban [Eliquis] 5 mg PO BID 11/24/21 Ascorbic Acid [Vitamin C*] 500 mg PO BID 11/24/21 Biotin 5 mg PO DAILY 11/24/21 Calcium Carb, Citrate/Vit D3 [Citracal-D3 ER 600 mg-500 Unit] 2 tab PO BID 11/24/21 Cholecalciferol (Vitamin D3) [Vitamin D 5,000 IU Cap*] 5,000 unit PO DAILY 11/24/21 Famotidine [Pepcid*] 20 mg PO BID 11/24/21 Gluc Bobby/Chondro Bobby A/Vit C/Mn [Glucosamine-Chondroitin Cap] 1 each PO BID 11/24/21 Glutathione 2 cap PO 1600 11/24/21 Hydralazine HCl [Apresoline] 50 mg PO TID 11/24/21 Multivitamin with Folic Acid [Daily-Nicole Tablet] 1 each PO DAILY 11/24/21 Propylene Glycol/Peg 400 [Systane 0.3-0.4% Eye Drops] 1 gtt EACH EYE BID 11/24/21 Propylene Glycol/Peg 400/Pf [Systane 0.3-0.4% Eye Drops] 1 each OP Q6HP PRN 11/24/21 Triamcinolone 0.1% Crm [Kenalog 0.1% Cream*] 15 appl TOP Q12HP PRN 11/24/21 Vit C/E/Zn/Coppr/Lutein/Zeaxan [Preservision Areds 2 Softgel] 2 cap PO DAILY 11/24/21 levETIRAcetam [Levetiracetam] 250 mg PO DAILY 11/24/21 Furosemide 20 mg PO DAILY #90 tablet 11/28/21 Potassium Oral Tab [Klor-Con 10 mEq Tab] 10 meq PO DAILY #90 tab 11/28/21 Sotalol HCl [Betapace AF] 40 mg PO BID #90 tablet 11/28/21 - Past Medical/Surgical History Has patient received pneumonia vaccine in the past: No Diabetic: No -: HTN -: Bladder urgency -: rt knee sx, rt breast mass removal, cholecystectomy, -: HLD, Hiatal hernia, GERD, -: Right knee SX -: Latia -: Breast Reduction -: foot sx -: wrist sx - Social History Smoking Status: Never smoker Alcohol use: No CD- Drugs: No Caffeine use: No Review of Systems 10-point ROS is otherwise unremarkable General: Weakness, Malaise Physical Examination - Vital Signs Temperature: 99.0 F Blood Pressure: 131/49 Pulse: 68 Respirations: 16 Pulse Ox (%): 94 - Physical Exam General: Oriented x2, Moderate distress, Confused HEENT: Atraumatic, PERRLA, Mucous membr. moist/pink, EOMI, Sclerae nonicteric Neck: Supple, 2+ carotid pulse no bruit, No LAD, Without JVD or thyroid abnormality Respiratory: Clear to auscultation bilaterally, Normal air movement Cardiovascular: Regular rate/rhythm, Normal S1 S2 Gastrointestinal: Normal bowel sounds, No tenderness Musculoskeletal: No tenderness Integumentary: No rashes Neurological: Normal gait, Normal speech, Normal strength at 5/5 x4 extr, Normal tone, Normal affect Lymphatics: No axilla or inguinal lymphadenopathy - Studies Laboratory Data (last 24 hrs) 12/21/21 23:45: PT 16.5 H, INR 1.49 12/21/21 23:45: WBC 8.2, Hgb 10.1 L, Hct 30.4 L, Plt Count 334 12/21/21 23:45: Sodium 130 L, Potassium 3.3 L, BUN 16, Creatinine 0.84, Glucose 102, Magnesium 1.9, Total Bilirubin 0.3, AST 24, ALT 23, Alkaline Phosphatase 95 Assessment and Plan - Problems (Diagnosis) (1) Sepsis secondary to UTI Current Visit: Yes Status: Acute Plan: ROCEPHIN IV. SHE HAS TOLERATED THIS. KEFELX ALLERGY MAY BE LIMITED TO KEFLEX. Greater than 100,000 CFU/mL of Escherichia coli E.coli INT LUCHO AMOX/CLAVULANATE S 8 AMPICILLIN R >=32 AMP/SULBACTAM I 16 CEFAZOLIN NR <=4 2 CEFEPIME S <=1 CEFTRIAXONE S <=1 CIPROFLOXACIN R >=4 GENTAMICIN R >=16 IMIPENEM S <=0.25 LEVOFLOXACIN R >=8 NITROFURANTOIN S <=16 PIP/TAZOBACTAM S <=4 TOBRAMYCIN I 8 TRIMETHOPRIM/SULFA R >=320 Legend: S = Susceptible I = Intermediate R = Resistant NS = Not susceptibl (2) Hypotension Current Visit: Yes Status: Acute Plan: MANAGE WITH BOLUS AND LEVOPHED CONTROLLING INFECTION WILL CONTROL THIS. (3) Hypokalemia Current Visit: Yes Status: Acute Plan: REPLACE K, FU DAILY. (4) A-fib Current Visit: No Status: Chronic Plan: WATCH HG ELIQUIS MAY NEED TO BE HELD. WILL FU. (5) Metabolic encephalopathy Current Visit: No Status: Acute Plan: SEPSIS RELATED. (6) Seizure disorder Current Visit: No Status: Chronic Plan: CONTINUE MEDS. - Advance Directives Does patient have a Living Will: Yes Does patient have a Durable POA for Healthcare: Yes
[2021-12-22] MEDS ORDERED: SOTALOL HCL 80 MG TAB PO SCH (21:00)
[2021-12-22] MEDS: SOTALOL HCL 80 MG TAB PO SCH ×2 (21:00→21:33)
[2021-12-22] MEDS: APIXABAN 5 MG TABLET PO SCH ×2 (21:00→21:33)
[2021-12-22] MEDS: KCL 20 MEQ/100 mL IVPB 20 MEQ/100 ML BAG IV SCH (22:37)
[2021-12-23] MEDS: KCL 20 MEQ/100 mL IVPB 20 MEQ/100 ML BAG IV SCH (00:49)
[2021-12-23 04:54] LABS: Absolute Lymphocytes (CBC) 2.2 K/uL (0.7-4.9); Hematocrit 28.4 % (36.0-45.0); Lymphocytes % 21.9 % (15.3-44.8); MPV 9.1 fL (7.6-11.3); RBC Red Blood Cell Count 3.37 M/uL (3.86-4.86)
[2021-12-23 05:09] LABS: Magnesium 1.9 mg/dL (1.8-2.4); Potassium 4.4 mmol/L (3.5-5.1)
[2021-12-23] MEDS: CEFTRIAXONE 1,000 MG in NA CHLORIDE 0.9% 50 ML IVPB SCH ×2 (08:48→20:04)
[2021-12-23] MEDS: levETIRAcetam 500 MG TAB PO SCH (08:49)
[2021-12-23] MEDS: APIXABAN 5 MG TABLET PO SCH ×2 (08:50→20:05)
[2021-12-23] MEDS: SOTALOL HCL 80 MG TAB PO SCH ×2 (08:50→20:05)
--- NOTE | 2021-12-23 10:55 | P.PN ---
Subjective Date of Service: 12/23/21 Chief Complaint: IMPROVED Subjective: Improving DHIRAJ IS LOT MORE AWAKE. SHE IS STILL PARANOID AND HALLUCINATES BUT RECOGNIZED ME TODAY, IS ABLE TO EAT WITH HELP. SHE IS SITTING UP IN BED. HAS NO NEW COMPLAINTS. DAUGHTER IS AT BEDSIDE. Review of Systems 10-point ROS is otherwise unremarkable General: Weakness Physical Examination - Vital Signs Temperature: 96.7 F Blood Pressure: 165/65 Pulse: 69 Respirations: 13 Pulse Ox (%): 98 - Physical Exam General: Oriented x2, Mild distress HEENT: Atraumatic, PERRLA, EOMI Neck: Supple, JVD not distended Respiratory: Clear to auscultation bilaterally, Normal air movement Cardiovascular: Regular rate/rhythm, Normal S1 S2 Gastrointestinal: Normal bowel sounds, No tenderness Musculoskeletal: No tenderness Integumentary: No rashes Neurological: Normal speech, Other (DISORIENTED TO TIME AND PLACE. ), Abnormal strength (GEN WEAK.) Lymphatics: No axilla or inguinal lymphadenopathy - Studies Microbiology Data (last 24 hrs): 12/22/21 03:16 Blood - Blood Anaerobic Blood Culture - Final Medications List Reviewed: Yes Assessment And Plan - Current Problems (Diagnosis) (1) Sepsis secondary to UTI Current Visit: Yes Status: Acute Plan: ROCEPHIN IV. SHE HAS TOLERATED THIS. KEFELX ALLERGY MAY BE LIMITED TO KEFLEX. Greater than 100,000 CFU/mL of Escherichia coli E.coli INT LUCHO AMOX/CLAVULANATE S 8 AMPICILLIN R >=32 AMP/SULBACTAM I 16 CEFAZOLIN NR <=4 2 CEFEPIME S <=1 CEFTRIAXONE S <=1 CIPROFLOXACIN R >=4 GENTAMICIN R >=16 IMIPENEM S <=0.25 LEVOFLOXACIN R >=8 NITROFURANTOIN S <=16 PIP/TAZOBACTAM S <=4 TOBRAMYCIN I 8 TRIMETHOPRIM/SULFA R >=320 Legend: S = Susceptible I = Intermediate R = Resistant NS = Not susceptibl TOLERATES IV ROCEPHIN. NO SE. (2) Hypotension Current Visit: Yes Status: Acute Plan: MANAGE WITH BOLUS AND LEVOPHED CONTROLLING INFECTION WILL CONTROL THIS. OFF LEVOPHED NOW. CAN GO TO THE FLOOR. (3) Hypokalemia Current Visit: Yes Status: Acute Plan: REPLACE K, FU DAILY. STABLE NOW. (4) A-fib Current Visit: No Status: Chronic Plan: WATCH HG ELIQUIS MAY NEED TO BE HELD. WILL FU. (5) Metabolic encephalopathy Current Visit: No Status: Acute Plan: SEPSIS RELATED. (6) Seizure disorder Current Visit: No Status: Chronic Plan: CONTINUE MEDS. KEPPRA TO CONTINUE.
[2021-12-23] MEDS ORDERED: cloNIDine HCL 0.1 MG TAB PO PRN (11:45)
[2021-12-23] MEDS: AMLODIPINE 5 MG TAB PO SCH (12:00)
[2021-12-23] MEDS: HYDRALAZINE HCL 25 MG TABLET PO SCH ×3 (12:00→20:04)
[2021-12-23] MEDS: NACHLORIDE 0.45% 1,000 ML IV SCH (18:34)
[2021-12-24 05:21] LABS: Absolute Lymphocytes (CBC) 2.6 K/uL (0.7-4.9); Hematocrit 26.6 % (36.0-45.0); Lymphocytes % 19.8 % (15.3-44.8); MPV 8.5 fL (7.6-11.3); RBC Red Blood Cell Count 3.23 M/uL (3.86-4.86)
[2021-12-24 05:38] LABS: Potassium 4.2 mmol/L (3.5-5.1)
[2021-12-24] MEDS: APIXABAN 5 MG TABLET PO SCH ×2 (09:00→21:12)
[2021-12-24] MEDS: SOTALOL HCL 80 MG TAB PO SCH ×2 (09:00→21:12)
[2021-12-24] MEDS: levETIRAcetam 500 MG TAB PO SCH (09:00)
[2021-12-24] MEDS: AMLODIPINE 5 MG TAB PO SCH (09:00)
--- NOTE | 2021-12-24 09:02 | EKG ---
Test Date: 2021-12-22 Test Time: 00:38:10 Counseling Aide: ARNULFO MEASUREMENT RESULTS: Intervals: Rate: 54 IN: 240 QRSD: 112 QT: 512 QTc: 485 Cullen: P: 43 IN: 240 QRS: -65 T: 55 INTERPRETIVE STATEMENTS: Sinus bradycardia with 1st degree AV block Possible Left atrial enlargement Incomplete right bundle branch block Left anterior fascicular block Septal infarct, age undetermined Abnormal ECG Compared to ECG 11/25/2021 04:02:54 Incomplete right bundle-branch block now present Myocardial infarct finding now present Left ventricular hypertrophy no longer present Early repolarization no longer present Prolonged QT interval no longer present Electronically Signed On 12-24-21 08:57:07 CDT by Ashutosh Prajapati
[2021-12-24] MEDS: CEFTRIAXONE 1,000 MG in NA CHLORIDE 0.9% 50 ML IVPB SCH ×2 (09:28→21:13)
[2021-12-24] MEDS: HYDRALAZINE HCL 25 MG TABLET PO SCH ×3 (09:28→21:12)
[2021-12-24] MEDS ORDERED: CEFTRIAXONE 1000 MG/VIAL ONE ×2 (09:28→20:32)
[2021-12-24] MEDS ORDERED: NA CHLORIDE 0.9% 50 ML ONE ×2 (09:30→20:50)
[2021-12-24] MEDS: NACHLORIDE 0.45% 1,000 ML IV SCH (12:51)
[2021-12-24] MEDS: HYDRALAZINE HCL 20 MG/ML VIAL IV PRN ×2 (12:51→17:48)
--- NOTE | 2021-12-24 13:06 | P.PN ---
Subjective Date of Service: 12/24/21 Chief Complaint: SLEEPY, AGITATED DHIRAJ IS LOT MORE AWAKE. SHE IS STILL PARANOID AND HALLUCINATES BUT RECOGNIZED ME TODAY, IS ABLE TO EAT WITH HELP. SHE IS SITTING UP IN BED. HAS NO NEW COMPLAINTS. DAUGHTER IS AT BEDSIDE. SHE IS STILL THE SAME. BP IS LOT BETTER. SHE IS OFF LEOVPHED AND ON THE FLOOR NOW. Physical Examination - Vital Signs Temperature: 96.8 F Blood Pressure: 191/85 Pulse: 65 Respirations: 14 Pulse Ox (%): 97 - Physical Exam General: Oriented x1, Mild distress, Confused (NOT FULLY AWAKE THIS AM YET. NOT COOPERATING.) HEENT: Atraumatic, PERRLA, EOMI Neck: Supple, JVD not distended Respiratory: Clear to auscultation bilaterally, Normal air movement Cardiovascular: Regular rate/rhythm, Normal S1 S2 Gastrointestinal: Normal bowel sounds, No tenderness Musculoskeletal: No tenderness Integumentary: No rashes Neurological: Normal speech, Normal tone, Normal affect Lymphatics: No axilla or inguinal lymphadenopathy - Studies Microbiology Data (last 24 hrs): 12/21/21 23:33 Catheterized Urine [place] Count - Final >100,000 CFU/ML. 12/21/21 23:33 Catheterized Urine - Final Escherichia Coli Medications List Reviewed: Yes Assessment And Plan - Current Problems (Diagnosis) (1) Sepsis secondary to UTI Current Visit: Yes Status: Acute Plan: ROCEPHIN IV. SHE HAS TOLERATED THIS. KEFELX ALLERGY MAY BE LIMITED TO KEFLEX. Greater than 100,000 CFU/mL of Escherichia coli E.coli INT LUCHO AMOX/CLAVULANATE S 8 AMPICILLIN R >=32 AMP/SULBACTAM I 16 CEFAZOLIN NR <=4 2 CEFEPIME S <=1 CEFTRIAXONE S <=1 CIPROFLOXACIN R >=4 GENTAMICIN R >=16 IMIPENEM S <=0.25 LEVOFLOXACIN R >=8 NITROFURANTOIN S <=16 PIP/TAZOBACTAM S <=4 TOBRAMYCIN I 8 TRIMETHOPRIM/SULFA R >=320 Legend: S = Susceptible I = Intermediate R = Resistant NS = Not susceptibl TOLERATES IV ROCEPHIN. NO SE. PHARMACIST IS EAGER TO CHANGE TO MERREM BUT I WOULD LIKE TO WAIT AND LET ROCEPHIN WORK. WBC CAN BE HIGHER AND HAVE LAGGING RESPONSE. WILL DO DAILY LAB. (2) Hypotension Current Visit: Yes Status: Acute Plan: MANAGE WITH BOLUS AND LEVOPHED CONTROLLING INFECTION WILL CONTROL THIS. OFF LEVOPHED NOW. CAN GO TO THE FLOOR. RESOLVED. (3) Hypokalemia Current Visit: Yes Status: Acute Plan: REPLACE K, FU DAILY. STABLE NOW. (4) A-fib Current Visit: No Status: Chronic Plan: WATCH HG ELIQUIS MAY NEED TO BE HELD. WILL FU. (5) Metabolic encephalopathy Current Visit: No Status: Acute Plan: SEPSIS RELATED. (6) Seizure disorder Current Visit: No Status: Chronic Plan: CONTINUE MEDS. KEPPRA TO CONTINUE. 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 SHE HAS LOW ORAL INTAKE SO WILL CONTINUE SALINE AT LOW RATE. WILL AVOID SALT TABLETS BP IS HIGH. (8) HTN (hypertension) Current Visit: No Status: Chronic Plan: RESUME MEDS MAY HAVE TO USE IV MEDS UNTIL SHE WAKES UP. SHE HAS BEEN LIKE THIS BEFORE IN THE PAST SHE GETS VERY DEPRESSED IN THE HOSPITAL. Qualifiers: Hypertension type: primary hypertension Qualified Code(s): I10 - Essential (primary) hypertension
--- NOTE | 2021-12-24 13:45 | RAD REPORT ---
EXAM DESCRIPTION: CT - Head Brain Wo Cont - 12/22/2021 6:49 am CLINICAL HISTORY: 86 years Female Altered mental status, nontraumatic TECHNIQUE: Axial noncontrast CT head with coronal and sagittal reformats. All CT scans at this [facility] it use dose modulation, iterative reconstruction, and/or weight based dosing when appropriate to red uce radiation dose to as low as reasonably achievable. COMPARISON: 08/10/2021 FINDINGS: Brain: Parenchymal volume loss. Chronic small vessel disease. No obvious large acute ramandeep torial infarction. No intracranial hemorrhage, midline shift, mass or mass effect. Ventricles: No hydrocephalus. Orbits: Unremarkable. Sinuses: Visualized portions are clear. Mastoid: Clear. Osseous: Unremarkable. Soft tissues: Unremarkable. IMPRESSION: No acute CT abnormality. Electronically signed by: Drew Barger MD 12/22/2021 2:13 AM CDT Due to temporary technical issues with the PACS/Fluency reporting system, reports are being signed by the in house radiologist without review as a courtesy to ensure prompt reporting. The interpreting r adiologist is fully responsible for the content of the report.
--- NOTE | 2021-12-24 13:59 | RAD REPORT ---
EXAM DESCRIPTION: RAD - Chest Single View - 12/22/2021 1:11 am CLINICAL HISTORY: 86 years Female, AMS COMPARISON: None. FINDINGS: There is a small amount of hazy opacity in both lungs. No pneumothorax. No significant ple ural effusion. Cardiac silhouette appears mildly enlarged. Osseous structures are unremarkable. IMPRESSION: 1. Small amount of hazy opacity in both lungs which may reflect atelectasis with underly ing mild edema or pneumonia not excluded. 2. Enlarged cardiac silhouette which can be seen with cardiomegaly and/or pericardial effusion. Electronically signed by: Ricardo Graves MD 12/22/2021 2:24 AM CDT Due to temporary technical issues with the PACS/Fluency reporting system, reports are being signed by the in house radiologist without review as a courtesy to ensure prompt reporting. The interpreting r adiologist is fully responsible for the content of the report.
[2021-12-24] MEDS: OXYBUTYNIN CHLORIDE 5 MG TAB PO SCH (21:12)
[2021-12-24] MEDS ORDERED: METOPROLOL TARTRATE 5 MG/5 ML INJ IV SCH (22:00)
[2021-12-25 05:37] LABS: Absolute Lymphocytes (CBC) 1.4 K/uL (0.7-4.9); Hematocrit 29.2 % (36.0-45.0); Lymphocytes % 11.3 % (15.3-44.8); MPV 8.9 fL (7.6-11.3); RBC Red Blood Cell Count 3.49 M/uL (3.86-4.86)
[2021-12-25] MEDS: NACHLORIDE 0.45% 1,000 ML IV SCH ×2 (05:43→21:26)
[2021-12-25] MEDS: METOPROLOL TARTRATE 5 MG/5 ML INJ IV PRN (05:43)
[2021-12-25 05:44] LABS: Potassium 4.2 mmol/L (3.5-5.1)
[2021-12-25] MEDS ORDERED: levETIRAcetam 500 MG TAB PO SCH (09:00)
[2021-12-25] MEDS: CEFTRIAXONE 1,000 MG in NA CHLORIDE 0.9% 50 ML IVPB SCH ×2 (09:59→21:27)
[2021-12-25] MEDS: levETIRAcetam 500 MG TAB PO SCH (10:00)
[2021-12-25] MEDS: AMLODIPINE 5 MG TAB PO SCH (10:00)
[2021-12-25] MEDS: HYDRALAZINE HCL 25 MG TABLET PO SCH ×3 (10:01→21:26)
[2021-12-25] MEDS: VENLAFAXINE HCL XR 37.5MG CAP PO SCH (10:01)
[2021-12-25] MEDS: OXYBUTYNIN CHLORIDE 5 MG TAB PO SCH ×2 (10:02→21:26)
[2021-12-25] MEDS: SOTALOL HCL 80 MG TAB PO SCH ×2 (10:15→21:26)
[2021-12-25] MEDS: APIXABAN 5 MG TABLET PO SCH ×2 (10:15→21:26)
[2021-12-25] MEDS: NITROGLYCERIN 0.2 MG/HR (5 MG) PATCH TD SCH (10:16)
--- NOTE | 2021-12-25 21:50 | P.PN ---
Subjective Date of Service: 12/25/21 Chief Complaint: WEAK, SLEEPY SHE IS SLEEPY AND STAYS LIKE THAT WITHOUT ANY SEDATION. SHE DID THE SAME LAST ADMISSION. WHEN SHE WENT TO [place] OR HOME SHE WAS LOT MORE AWAKE AND LESS DEPRESSED. SHE DOES NOT SHOW ANY ACUTE DISTRESS. Review of Systems is unable to be obtained Physical Examination - Vital Signs Temperature: 97.3 F Blood Pressure: 137/57 Pulse: 65 Respirations: 19 Pulse Ox (%): 95 - Physical Exam General: Oriented x1 (STAYS SLEEPY, NOT RESPONDING BUT OPENS EYES. ) HEENT: Atraumatic, PERRLA, EOMI Neck: Supple, JVD not distended Respiratory: Clear to auscultation bilaterally, Normal air movement Cardiovascular: Regular rate/rhythm, Normal S1 S2 Gastrointestinal: Normal bowel sounds, No tenderness Musculoskeletal: No tenderness Integumentary: No rashes Neurological: Normal speech, Normal tone, Normal affect Lymphatics: No axilla or inguinal lymphadenopathy - Studies Medications List Reviewed: Yes Assessment And Plan - Current Problems (Diagnosis) (1) Sepsis secondary to UTI Current Visit: Yes Status: Acute Plan: ROCEPHIN IV. SHE HAS TOLERATED THIS. KEFELX ALLERGY MAY BE LIMITED TO KEFLEX. Greater than 100,000 CFU/mL of Escherichia coli E.coli INT LUCHO AMOX/CLAVULANATE S 8 AMPICILLIN R >=32 AMP/SULBACTAM I 16 CEFAZOLIN NR <=4 2 CEFEPIME S <=1 CEFTRIAXONE S <=1 CIPROFLOXACIN R >=4 GENTAMICIN R >=16 IMIPENEM S <=0.25 LEVOFLOXACIN R >=8 NITROFURANTOIN S <=16 PIP/TAZOBACTAM S <=4 TOBRAMYCIN I 8 TRIMETHOPRIM/SULFA R >=320 Legend: S = Susceptible I = Intermediate R = Resistant NS = Not susceptibl TOLERATES IV ROCEPHIN. NO SE. PHARMACIST IS EAGER TO CHANGE TO MERREM BUT I WOULD LIKE TO WAIT AND LET ROCEPHIN WORK. WBC CAN BE HIGHER AND HAVE LAGGING RESPONSE. WILL DO DAILY LAB. WBC HAS COME DOWN. UA SHOWS BACTERIA SENSITIVE TO ROCEPHIN. I SEE NO REASON TO CHANGE ANTIBIOTIC SO FAR. (2) Hypotension Current Visit: Yes Status: Acute Plan: MANAGE WITH BOLUS AND LEVOPHED CONTROLLING INFECTION WILL CONTROL THIS. OFF LEVOPHED NOW. CAN GO TO THE FLOOR. RESOLVED. (3) Hypokalemia Current Visit: Yes Status: Acute Plan: REPLACE K, FU DAILY. STABLE NOW. (4) A-fib Current Visit: No Status: Chronic Plan: WATCH HG ELIQUIS MAY NEED TO BE HELD. WILL FU. (5) Metabolic encephalopathy Current Visit: No Status: Acute Plan: SEPSIS RELATED. (6) Seizure disorder Current Visit: No Status: Chronic Plan: CONTINUE MEDS. KEPPRA TO CONTINUE. 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 SHE HAS LOW ORAL INTAKE SO WILL CONTINUE SALINE AT LOW RATE. WILL AVOID SALT TABLETS BP IS HIGH. SHE STAYS ABOUT 128 AVERAGE ON SODIUM. (8) HTN (hypertension) Current Visit: No Status: Chronic Plan: RESUME MEDS MAY HAVE TO USE IV MEDS UNTIL SHE WAKES UP. SHE HAS BEEN LIKE THIS BEFORE IN THE PAST SHE GETS VERY DEPRESSED IN THE HOSPITAL. Qualifiers: Hypertension type: primary hypertension Qualified Code(s): I10 - Essential (primary) hypertension
[2021-12-26 06:13] LABS: Absolute Lymphocytes (CBC) 2.2 K/uL (0.7-4.9); Hematocrit 24.9 % (36.0-45.0); Lymphocytes % 18.3 % (15.3-44.8); MPV 9.2 fL (7.6-11.3); RBC Red Blood Cell Count 3.03 M/uL (3.86-4.86)
[2021-12-26 06:52] LABS: Arterial Blood Carboxyhemoglob 1.8 % (0-1.5); Blood Gas Oxyhemoglobin 95.2 % (94-97)
[2021-12-26] MEDS ORDERED: CEFTRIAXONE 1000 MG/VIAL ONE (09:52)
[2021-12-26] MEDS ORDERED: NA CHLORIDE 0.9% 50 ML ONE (09:56)
[2021-12-26] MEDS: levETIRAcetam 500 MG TAB PO SCH (10:01)
[2021-12-26] MEDS: CEFTRIAXONE 1,000 MG in NA CHLORIDE 0.9% 50 ML IVPB SCH ×2 (10:01→21:43)
[2021-12-26] MEDS: NITROGLYCERIN 0.2 MG/HR (5 MG) PATCH TD SCH (10:02)
[2021-12-26] MEDS: OXYBUTYNIN CHLORIDE 5 MG TAB PO SCH ×2 (10:02→21:43)
[2021-12-26] MEDS: SOTALOL HCL 80 MG TAB PO SCH ×2 (10:02→21:42)
[2021-12-26] MEDS: VENLAFAXINE HCL XR 37.5MG CAP PO SCH (10:02)
[2021-12-26] MEDS: AMLODIPINE 5 MG TAB PO SCH (10:03)
[2021-12-26] MEDS: HYDRALAZINE HCL 25 MG TABLET PO SCH ×3 (10:03→21:43)
--- NOTE | 2021-12-26 21:01 | P.PN ---
Subjective Date of Service: 12/26/21 Chief Complaint: MUCH AWAKE THIS AM Subjective: Improving THIS AM WHEN I SAW HER, SHE WAS FULLY AWAKE, TALKED TO ME, RECOGNIZED ME. I WAS TOLD SHE HAD GOOD DAY YESTERDAY ALSO WHEN I STARTED HER ON VENLAFAXINE. IN THE AFTERNOON DAUGHTER CALLED THAT SHE IS NOT COOPERATING TO EAT OR DRINK. Review of Systems 10-point ROS is otherwise unremarkable General: Weakness Physical Examination - Vital Signs Temperature: 97.5 F Blood Pressure: 152/62 Pulse: 71 Respirations: 17 Pulse Ox (%): 92 - Physical Exam General: Alert, Oriented x2, Mild distress HEENT: Atraumatic, PERRLA, EOMI Neck: Supple, JVD not distended Respiratory: Clear to auscultation bilaterally, Normal air movement Cardiovascular: Regular rate/rhythm, Normal S1 S2 Gastrointestinal: Normal bowel sounds, No tenderness Musculoskeletal: No tenderness Integumentary: No rashes Neurological: Normal speech, Normal tone, Normal affect Lymphatics: No axilla or inguinal lymphadenopathy - Studies Medications List Reviewed: Yes Assessment And Plan - Current Problems (Diagnosis) (1) Sepsis secondary to UTI Current Visit: Yes Status: Acute Plan: ROCEPHIN IV. SHE HAS TOLERATED THIS. KEFELX ALLERGY MAY BE LIMITED TO KEFLEX. Greater than 100,000 CFU/mL of Escherichia coli E.coli INT LUCHO AMOX/CLAVULANATE S 8 AMPICILLIN R >=32 AMP/SULBACTAM I 16 CEFAZOLIN NR <=4 2 CEFEPIME S <=1 CEFTRIAXONE S <=1 CIPROFLOXACIN R >=4 GENTAMICIN R >=16 IMIPENEM S <=0.25 LEVOFLOXACIN R >=8 NITROFURANTOIN S <=16 PIP/TAZOBACTAM S <=4 TOBRAMYCIN I 8 TRIMETHOPRIM/SULFA R >=320 Legend: S = Susceptible I = Intermediate R = Resistant NS = Not susceptibl TOLERATES IV ROCEPHIN. NO SE. PHARMACIST IS EAGER TO CHANGE TO MERREM BUT I WOULD LIKE TO WAIT AND LET ROCEPHIN WORK. WBC CAN BE HIGHER AND HAVE LAGGING RESPONSE. WILL DO DAILY LAB. WBC HAS COME DOWN. UA SHOWS BACTERIA SENSITIVE TO ROCEPHIN. I SEE NO REASON TO CHANGE ANTIBIOTIC SO FAR. (2) Hypotension Current Visit: Yes Status: Acute Plan: MANAGE WITH BOLUS AND LEVOPHED CONTROLLING INFECTION WILL CONTROL THIS. OFF LEVOPHED NOW. CAN GO TO THE FLOOR. RESOLVED. (3) Hypokalemia Current Visit: Yes Status: Acute Plan: REPLACE K, FU DAILY. STABLE NOW. (4) A-fib Current Visit: No Status: Chronic Plan: WATCH HG ELIQUIS MAY NEED TO BE HELD. WILL FU. (5) Metabolic encephalopathy Current Visit: No Status: Acute Plan: SEPSIS RELATED. (6) Seizure disorder Current Visit: No Status: Chronic Plan: CONTINUE MEDS. KEPPRA TO CONTINUE. 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 SHE HAS LOW ORAL INTAKE SO WILL CONTINUE SALINE AT LOW RATE. WILL AVOID SALT TABLETS BP IS HIGH. SHE STAYS ABOUT 128 AVERAGE ON SODIUM. (8) HTN (hypertension) Current Visit: No Status: Chronic Plan: RESUME MEDS MAY HAVE TO USE IV MEDS UNTIL SHE WAKES UP. SHE HAS BEEN LIKE THIS BEFORE IN THE PAST SHE GETS VERY DEPRESSED IN THE HOSPITAL. Qualifiers: Hypertension type: primary hypertension Qualified Code(s): I10 - Essential (primary) hypertension (9) Depression Current Visit: Yes Status: Acute Plan: SHE GETS SITUATIONALLY DEPRESSED LIKE LAST ADMISSION. I WILL RAISE EFFEXOR DOSE. I WOULD TRY ADDERALL BUT WE DO NOT HAVE IT AT PHARMACY IN HOSPITAL. I DISCUSSED WITH DAUGHTER. SHE WANTS THE PATIENT TO BE BACK IN [employer] IN WHEN READY SHE DOES NOT DO WELL WITH CHANGES.
[2021-12-27 04:15] LABS: Absolute Lymphocytes (CBC) 1.9 K/uL (0.7-4.9); Hematocrit 26.3 % (36.0-45.0); MPV 8.5 fL (7.6-11.3); RBC Red Blood Cell Count 3.22 M/uL (3.86-4.86)
[2021-12-27 04:29] LABS: Potassium 4.3 mmol/L (3.5-5.1)
[2021-12-27] MEDS: CEFTRIAXONE 1,000 MG in NA CHLORIDE 0.9% 50 ML IVPB SCH ×2 (10:23→20:11)
[2021-12-27] MEDS: HYDRALAZINE HCL 25 MG TABLET PO SCH ×3 (10:24→20:11)
[2021-12-27] MEDS: AMLODIPINE 5 MG TAB PO SCH (10:24)
[2021-12-27] MEDS: OXYBUTYNIN CHLORIDE 5 MG TAB PO SCH ×2 (10:24→20:11)
[2021-12-27] MEDS: levETIRAcetam 500 MG TAB PO SCH (10:24)
[2021-12-27] MEDS: SOTALOL HCL 80 MG TAB PO SCH ×2 (10:24→20:11)
[2021-12-27] MEDS: VENLAFAXINE HCL XR 75 MG CAP PO SCH (10:27)
[2021-12-27] MEDS: NITROGLYCERIN 0.2 MG/HR (5 MG) PATCH TD SCH (11:03)
--- NOTE | 2021-12-27 12:47 | P.PN ---
Subjective Date of Service: 12/27/21 Chief Complaint: MUCH AWAKE THIS AM Subjective: Improving THIS AM WHEN I SAW HER, SHE WAS FULLY AWAKE, TALKED TO ME, RECOGNIZED ME. I WAS TOLD SHE HAD GOOD DAY YESTERDAY ALSO WHEN I STARTED HER ON VENLAFAXINE. IN THE AFTERNOON DAUGHTER CALLED THAT SHE IS NOT COOPERATING TO EAT OR DRINK. SHE TALKED TO ME TODAY. SHE IS MOTIVATED TO GO BACK TO [facility]. I ASKED HER TO DO PT AND TAKE MEDS PLUS EAT WELL. Physical Examination - Vital Signs Temperature: 97.3 F Blood Pressure: 160/70 Pulse: 65 Respirations: 18 Pulse Ox (%): 96 - Physical Exam General: Oriented x2, Mild distress HEENT: Atraumatic, PERRLA, EOMI Neck: Supple, JVD not distended Respiratory: Clear to auscultation bilaterally, Normal air movement Cardiovascular: Regular rate/rhythm, Normal S1 S2 Gastrointestinal: Normal bowel sounds, No tenderness Musculoskeletal: No tenderness Integumentary: No rashes Neurological: Normal speech, Normal tone, Normal affect Lymphatics: No axilla or inguinal lymphadenopathy - Studies Microbiology Data (last 24 hrs): 12/22/21 03:16 Blood - Blood Aerobic Blood Culture - Final No growth in 5 days. 12/22/21 03:16 Blood - Blood Anaerobic Blood Culture - Final 12/21/21 23:59 Blood - Blood Aerobic Blood Culture - Final No growth in 5 days. 12/21/21 23:59 Blood - Blood Anaerobic Blood Culture - Final No growth in 5 days. Medications List Reviewed: Yes Assessment And Plan - Current Problems (Diagnosis) (1) Sepsis secondary to UTI Current Visit: Yes Status: Acute Plan: ROCEPHIN IV. SHE HAS TOLERATED THIS. KEFELX ALLERGY MAY BE LIMITED TO KEFLEX. Greater than 100,000 CFU/mL of Escherichia coli E.coli INT LUCHO AMOX/CLAVULANATE S 8 AMPICILLIN R >=32 AMP/SULBACTAM I 16 CEFAZOLIN NR <=4 2 CEFEPIME S <=1 CEFTRIAXONE S <=1 CIPROFLOXACIN R >=4 GENTAMICIN R >=16 IMIPENEM S <=0.25 LEVOFLOXACIN R >=8 NITROFURANTOIN S <=16 PIP/TAZOBACTAM S <=4 TOBRAMYCIN I 8 TRIMETHOPRIM/SULFA R >=320 Legend: S = Susceptible I = Intermediate R = Resistant NS = Not susceptibl TOLERATES IV ROCEPHIN. NO SE. PHARMACIST IS EAGER TO CHANGE TO MERREM BUT I WOULD LIKE TO WAIT AND LET RO CEPHIN WORK. WBC CAN BE HIGHER AND HAVE LAGGING RESPONSE. WILL DO DAILY LAB. WBC HAS COME DOWN. UA SHOWS BACTERIA SENSITIVE TO ROCEPHIN. I SEE NO REASON TO CHANGE ANTIBIOTIC SO FAR. (2) Hypotension Current Visit: Yes Status: Acute Plan: MANAGE WITH BOLUS AND LEVOPHED CONTROLLING INFECTION WILL CONTROL THIS. OFF LEVOPHED NOW. CAN GO TO THE FLOOR. RESOLVED. (3) Hypokalemia Current Visit: Yes Status: Acute Plan: REPLACE K, FU DAILY. STABLE NOW. (4) A-fib Current Visit: No Status: Chronic Plan: WATCH HG ELIQUIS MAY NEED TO BE HELD. WILL FU. (5) Metabolic encephalopathy Current Visit: No Status: Acute Plan: SEPSIS RELATED. (6) Seizure disorder Current Visit: No Status: Chronic Plan: CONTINUE MEDS. KEPPRA TO CONTINUE. 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 SHE HAS LOW ORAL INTAKE SO WILL CONTINUE SALINE AT LOW RATE. WILL AVOID SALT TABLETS BP IS HIGH. SHE STAYS ABOUT 128 AVERAGE ON SODIUM. (8) HTN (hypertension) Current Visit: No Status: Chronic Plan: RESUME MEDS MAY HAVE TO USE IV MEDS UNTIL SHE WAKES UP. SHE HAS BEEN LIKE THIS BEFORE IN THE PAST SHE GETS VERY DEPRESSED IN THE HOSPITAL. Qualifiers: Hypertension type: primary hypertension Qualified Code(s): I10 - Essential (primary) hypertension (9) Depression Current Visit: Yes Status: Acute Plan: SHE GETS SITUATIONALLY DEPRESSED LIKE LAST ADMISSION. I WILL RAISE EFFEXOR DOSE. I WOULD TRY ADDERALL BUT WE DO NOT HAVE IT AT PHARMACY IN HOSPITAL. I DISCUSSED WITH DAUGHTER. SHE WANTS THE PATIENT TO BE BACK IN [employer] IN WHEN READY SHE DOES NOT DO WELL WITH CHANGES. RAISE THE DOSE TO 75 MG DAILY. CONT PT.
[2021-12-27] MEDS ORDERED: PNEUMOCOCCAL VACCINE 0.5 ML IMVAC ONE (14:00)
[2021-12-28 04:41] LABS: Hematocrit 28.2 % (36.0-45.0); Lymphocytes % 19.5 % (15.3-44.8); MPV 8.3 fL (7.6-11.3); RBC Red Blood Cell Count 3.39 M/uL (3.86-4.86)
[2021-12-28 04:52] LABS: Potassium 4.2 mmol/L (3.5-5.1)
[2021-12-28] MEDS ORDERED: CEFTRIAXONE 1000 MG/VIAL ONE (08:32)
[2021-12-28] MEDS ORDERED: NA CHLORIDE 0.9% 50 ML ONE (08:37)
[2021-12-28] MEDS: NITROGLYCERIN 0.2 MG/HR (5 MG) PATCH TD SCH (08:42)
[2021-12-28] MEDS: CEFTRIAXONE 1,000 MG in NA CHLORIDE 0.9% 50 ML IVPB SCH ×2 (08:42→20:38)
[2021-12-28] MEDS: OXYBUTYNIN CHLORIDE 5 MG TAB PO SCH ×2 (08:43→20:37)
[2021-12-28] MEDS: SOTALOL HCL 80 MG TAB PO SCH ×2 (08:43→20:36)
[2021-12-28] MEDS: HYDRALAZINE HCL 25 MG TABLET PO SCH ×3 (08:44→20:37)
[2021-12-28] MEDS: AMLODIPINE 5 MG TAB PO SCH (08:44)
[2021-12-28] MEDS: levETIRAcetam 500 MG TAB PO SCH (08:44)
[2021-12-28] MEDS: VENLAFAXINE HCL XR 75 MG CAP PO SCH (08:44)
[2021-12-28] MEDS: TAMSULOSIN 0.4 MG SR CAP PO SCH (20:36)
[2021-12-29 04:47] LABS: Potassium 4.1 mmol/L (3.5-5.1)
[2021-12-29 04:54] LABS: Lymphocytes % 19.6 % (15.3-44.8); MPV 8.5 fL (7.6-11.3); RBC Red Blood Cell Count 3.19 M/uL (3.86-4.86)
[2021-12-29] MEDS: NITROGLYCERIN 0.2 MG/HR (5 MG) PATCH TD SCH (09:45)
[2021-12-29] MEDS: CEFTRIAXONE 1,000 MG in NA CHLORIDE 0.9% 50 ML IVPB SCH ×2 (09:46→20:19)
[2021-12-29] MEDS: HYDRALAZINE HCL 25 MG TABLET PO SCH ×3 (09:47→20:19)
[2021-12-29] MEDS: OXYBUTYNIN CHLORIDE 5 MG TAB PO SCH ×2 (09:47→20:19)
[2021-12-29] MEDS: levETIRAcetam 500 MG TAB PO SCH (09:47)
[2021-12-29] MEDS: VENLAFAXINE HCL XR 75 MG CAP PO SCH (09:47)
[2021-12-29] MEDS: SOTALOL HCL 80 MG TAB PO SCH ×2 (09:48→20:20)
[2021-12-29] MEDS: AMLODIPINE 5 MG TAB PO SCH (09:48)
--- NOTE | 2021-12-29 13:19 | P.PN ---
Subjective Date of Service: 12/29/21 Chief Complaint: AWAKE AND CONFUSED Subjective: No new changes SHE HAS SOME GOOD DAYS AND BAD DAYS. I TALKED TO DAUGHTER TODAY. SHE TOOK HER MEDS AND DID PT IN BED BUT DID NOT EAT. DAUGHTER WANTS TO TRY [facility] AGAIN BUT MOST LIKELY THEY CAN'T PROVIDE CARE LIKE [facility] CARE SHE NEEDS. IF DHIRAJ DOES NOT WANT TO EAT OR DRINK AND GET WORSE OVER TIME THERE IS NOT MUCH WE CAN DO. SHE DID NOT EVER WANT G TUBE. DHIRAJ TENDS TO DO BETTER OUTSIDE HOSPITAL. WE WILL TRY TO GET HER TO [facility] ON FRIDAY. . Review of Systems 10-point ROS is otherwise unremarkable General: Weakness Physical Examination - Vital Signs Temperature: 97.4 F Blood Pressure: 120/58 Pulse: 69 Respirations: 20 Pulse Ox (%): 94 - Physical Exam General: Mild distress, Confused HEENT: Atraumatic, PERRLA, EOMI Neck: Supple, JVD not distended Respiratory: Clear to auscultation bilaterally, Normal air movement Cardiovascular: Regular rate/rhythm, Normal S1 S2 Gastrointestinal: Normal bowel sounds, No tenderness Musculoskeletal: No tenderness Integumentary: No rashes Neurological: Abnormal strength (GEN WEAK, NOT ABLE TO DO MUCH PT.), Abnormal tone Lymphatics: No axilla or inguinal lymphadenopathy - Studies Medications List Reviewed: Yes Assessment And Plan - Current Problems (Diagnosis) (1) Sepsis secondary to UTI Current Visit: Yes Status: Acute Plan: ROCEPHIN IV. SHE HAS TOLERATED THIS. KEFELX ALLERGY MAY BE LIMITED TO KEFLEX. Greater than 100,000 CFU/mL of Escherichia coli E.coli INT LUCHO AMOX/CLAVULANATE S 8 AMPICILLIN R >=32 AMP/SULBACTAM I 16 CEFAZOLIN NR <=4 2 CEFEPIME S <=1 CEFTRIAXONE S <=1 CIPROFLOXACIN R >=4 GENTAMICIN R >=16 IMIPENEM S <=0.25 LEVOFLOXACIN R >=8 NITROFURANTOIN S <=16 PIP/TAZOBACTAM S <=4 TOBRAMYCIN I 8 TRIMETHOPRIM/SULFA R >=320 Legend: S = Susceptible I = Intermediate R = Resistant NS = Not susceptibl TOLERATES IV ROCEPHIN. NO SE. PHARMACIST IS EAGER TO CHANGE TO MERREM BUT I WOULD LIKE TO WAIT AND LET ROCEPHIN WORK. WBC CAN BE HIGHER AND HAVE LAGGING RESPONSE. WILL DO DAILY LAB. WBC HAS COME DOWN. UA SHOWS BACTERIA SENSITIVE TO ROCEPHIN. I SEE NO REASON TO CHANGE ANTIBIOTIC SO FAR. UTI IS CLEARED NOW. CONTROLLED WITH ROCEPHIN ALONE. (2) Hypotension Current Visit: Yes Status: Resolved Plan: MANAGE WITH BOLUS AND LEVOPHED CONTROLLING INFECTION WILL CONTROL THIS. OFF LEVOPHED NOW. CAN GO TO THE FLOOR. RESOLVED. (3) Hypokalemia Current Visit: Yes Status: Resolved Plan: REPLACE K, FU DAILY. STABLE NOW. (4) A-fib Current Visit: No Status: Chronic Plan: WATCH HG ELIQUIS MAY NEED TO BE HELD. WILL FU. Qualifiers: Atrial fibrillation type: unspecified chronic Qualified Code(s): I48.20 - Chronic atrial fibrillation, unspecified; I48.2 - Chronic atrial fibrillation (5) Metabolic encephalopathy Current Visit: No Status: Acute Plan: SEPSIS RELATED. (6) Seizure disorder Current Visit: No Status: Chronic Plan: CONTINUE MEDS. KEPPRA TO CONTINUE. 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 SHE HAS LOW ORAL INTAKE SO WILL CONTINUE SALINE AT LOW RATE. WILL AVOID SALT TABLETS BP IS HIGH. SHE STAYS ABOUT 128 AVERAGE ON SODIUM. (8) HTN (hypertension) Current Visit: No Status: Chronic Plan: RESUME MEDS MAY HAVE TO USE IV MEDS UNTIL SHE WAKES UP. SHE HAS BEEN LIKE THIS BEFORE IN THE PAST SHE GETS VERY DEPRESSED IN THE HOSPITAL. Qualifiers: Hypertension type: primary hypertension Qualified Code(s): I10 - Essential (primary) hypertension (9) Depression Current Visit: Yes Status: Acute Plan: SHE GETS SITUATIONALLY DEPRESSED LIKE LAST ADMISSION. I WILL RAISE EFFEXOR DOSE. I WOULD TRY ADDERALL BUT WE DO NOT HAVE IT AT PHARMACY IN HOSPITAL. I DISCUSSED WITH DAUGHTER. SHE WANTS THE PATIENT TO BE BACK IN [employer] IN WHEN READY SHE DOES NOT DO WELL WITH CHANGES. RAISE THE DOSE TO 75 MG DAILY. CONT PT. (10) Alzheimer disease Current Visit: Yes Status: Chronic Plan: MORE PARANOIA AND HALLUCINATIONS IN HOSPITAL. MEDICAL MANAGEMENT. SHE TENDS TO IMPROVE OUTSIDE HOSPITAL.
--- NOTE | 2021-12-29 13:42 | P.PN ---
Subjective Date of Service: 12/28/21 Chief Complaint: AWAKE AND CONFUSED Subjective: Improving SHE HAS SOME GOOD DAYS AND BAD DAYS. I TALKED TO DAUGHTER TODAY. THERE ARE NO ACUTE CHANGES. SLOW IMPROVEMENT. Review of Systems is unable to be obtained Physical Examination - Vital Signs Temperature: 97.4 F Blood Pressure: 120/58 Pulse: 69 Respirations: 20 Pulse Ox (%): 94 - Physical Exam General: Mild distress, Confused HEENT: Atraumatic, PERRLA, EOMI Neck: Supple, JVD not distended Respiratory: Clear to auscultation bilaterally, Normal air movement Cardiovascular: Regular rate/rhythm, Normal S1 S2 Gastrointestinal: Normal bowel sounds, No tenderness Musculoskeletal: No tenderness Integumentary: No rashes Neurological: Normal speech, Normal tone, Normal affect Lymphatics: No axilla or inguinal lymphadenopathy - Studies Medications List Reviewed: Yes Assessment And Plan - Current Problems (Diagnosis) (1) Sepsis secondary to UTI Current Visit: Yes Status: Acute Plan: ROCEPHIN IV. SHE HAS TOLERATED THIS. KEFELX ALLERGY MAY BE LIMITED TO KEFLEX. Greater than 100,000 CFU/mL of Escherichia coli E.coli INT LUCHO AMOX/CLAVULANATE S 8 AMPICILLIN R >=32 AMP/SULBACTAM I 16 CEFAZOLIN NR <=4 2 CEFEPIME S <=1 CEFTRIAXONE S <=1 CIPROFLOXACIN R >=4 GENTAMICIN R >=16 IMIPENEM S <=0.25 LEVOFLOXACIN R >=8 NITROFURANTOIN S <=16 PIP/TAZOBACTAM S <=4 TOBRAMYCIN I 8 TRIMETHOPRIM/SULFA R >=320 Legend: S = Susceptible I = Intermediate R = Resistant NS = Not susceptibl TOLERATES IV ROCEPHIN. NO SE. PHARMACIST IS EAGER TO CHANGE TO MERREM BUT I WOULD LIKE TO WAIT AND LET ROCEPHIN WORK. WBC CAN BE HIGHER AND HAVE LAGGING RESPONSE. WILL DO DAILY LAB. WBC HAS COME DOWN. UA SHOWS BACTERIA SENSITIVE TO ROCEPHIN. I SEE NO REASON TO CHANGE ANTIBIOTIC SO FAR. UTI IS CLEARED NOW. CONTROLLED WITH ROCEPHIN ALONE. (2) Hypotension Current Visit: Yes Status: Resolved Plan: MANAGE WITH BOLUS AND LEVOPHED CONTROLLING INFECTION WILL CONTROL THIS. OFF LEVOPHED NOW. CAN GO TO THE FLOOR. RESOLVED. (3) Hypokalemia Current Visit: Yes Status: Resolved Plan: REPLACE K, FU DAILY. STABLE NOW. (4) A-fib Current Visit: No Status: Chronic Plan: WATCH HG ELIQUIS MAY NEED TO BE HELD. WILL FU. Qualifiers: Atrial fibrillation type: unspecified chronic Qualified Code(s): I48.20 - Chronic atrial fibrillation, unspecified; I48.2 - Chronic atrial fibrillation (5) Metabolic encephalopathy Current Visit: No Status: Acute Plan: SEPSIS RELATED. (6) Seizure disorder Current Visit: No Status: Chronic Plan: CONTINUE MEDS. KEPPRA TO CONTINUE. 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 SHE HAS LOW ORAL INTAKE SO WILL CONTINUE SALINE AT LOW RATE. WILL AVOID SALT TABLETS BP IS HIGH. SHE STAYS ABOUT 128 AVERAGE ON SODIUM. (8) HTN (hypertension) Current Visit: No Status: Chronic Plan: RESUME MEDS MAY HAVE TO USE IV MEDS UNTIL SHE WAKES UP. SHE HAS BEEN LIKE THIS BEFORE IN THE PAST SHE GETS VERY DEPRESSED IN THE HOSPITAL. Qualifiers: Hypertension type: primary hypertension Qualified Code(s): I10 - Essential (primary) hypertension (9) Depression Current Visit: Yes Status: Acute Plan: SHE GETS SITUATIONALLY DEPRESSED LIKE LAST ADMISSION. I WILL RAISE EFFEXOR DOSE. I WOULD TRY ADDERALL BUT WE DO NOT HAVE IT AT PHARMACY IN HOSPITAL. I DISCUSSED WITH DAUGHTER. SHE WANTS THE PATIENT TO BE BACK IN [employer] IN WHEN READY SHE DOES NOT DO WELL WITH CHANGES. RAISE THE DOSE TO 75 MG DAILY. CONT PT. (10) Alzheimer disease Current Visit: Yes Status: Chronic Plan: MORE PARANOIA AND HALLUCINATIONS IN HOSPITAL. MEDICAL MANAGEMENT. SHE TENDS TO IMPROVE OUTSIDE HOSPITAL. (11) Anemia Current Visit: Yes Status: Acute Plan: STABLE. NOT ABLE TO TAKE ELIQUIS OR LOVENOX HG DROPS. NOT A CANDIDATE FOR EGD OR COLONOSCOPY SHE IS DEBILITAED. DAUGHTER UNDERSTANDS. CHECK B12 , FERRITIN ETC.
[2021-12-29 18:36] LABS: Ferritin 117.6 ng/mL (8-388)
[2021-12-29] MEDS ORDERED: CEFTRIAXONE 1000 MG/VIAL ONE (19:37)
[2021-12-29] MEDS ORDERED: NA CHLORIDE 0.9% 50 ML ONE (19:48)
[2021-12-29] MEDS: TAMSULOSIN 0.4 MG SR CAP PO SCH (20:19)
[2021-12-29] MEDS: ENSURE ENLIVE 237 ML CAN PO SCH (20:20)
[2021-12-30] MEDS: ENSURE ENLIVE 237 ML CAN PO SCH ×2 (09:00→21:00)
--- NOTE | 2021-12-30 10:02 | P.PN ---
Subjective Date of Service: 12/30/21 Chief Complaint: AWAKE AND CONFUSED Subjective: No new changes SHE HAS SOME GOOD DAYS AND BAD DAYS. I TALKED TO DAUGHTER TODAY. THERE ARE NO ACUTE CHANGES. SLOW IMPROVEMENT. SHE CONTINUES TO HAVE A BLANK STARE LOOKING AT YOU ON DAILY BASIS. SHE WAS LIKE THIS FOR EVERY ADMISSION UNTIL SHE WENT HOME AND WOKE UP CLOSE TO HER USUSAL SELF. Review of Systems 10-point ROS is otherwise unremarkable General: Weakness Physical Examination - Vital Signs Temperature: 96.1 F Blood Pressure: 142/65 Pulse: 64 Respirations: 16 Pulse Ox (%): 95 - Physical Exam General: Mild distress HEENT: Atraumatic, PERRLA, EOMI Neck: Supple, JVD not distended Respiratory: Clear to auscultation bilaterally, Normal air movement Cardiovascular: Regular rate/rhythm, Normal S1 S2 Gastrointestinal: Normal bowel sounds, No tenderness Musculoskeletal: No tenderness Integumentary: No rashes Neurological: Other (SLOW, NOT VERBAL MANY TIMES, BLANK STARE IN SPACE, FOLLOWS COMMANDS SLOWLY.), Abnormal strength (GEN WEAK.) Lymphatics: No axilla or inguinal lymphadenopathy - Studies Medications List Reviewed: Yes Assessment And Plan - Current Problems (Diagnosis) (1) Sepsis secondary to UTI Current Visit: Yes Status: Acute Plan: ROCEPHIN IV. SHE HAS TOLERATED THIS. KEFELX ALLERGY MAY BE LIMITED TO KEFLEX. Greater than 100,000 CFU/mL of Escherichia coli E.coli INT LUCHO AMOX/CLAVULANATE S 8 AMPICILLIN R >=32 AMP/SULBACTAM I 16 CEFAZOLIN NR <=4 2 CEFEPIME S <=1 CEFTRIAXONE S <=1 CIPROFLOXACIN R >=4 GENTAMICIN R >=16 IMIPENEM S <=0.25 LEVOFLOXACIN R >=8 NITROFURANTOIN S <=16 PIP/TAZOBACTAM S <=4 TOBRAMYCIN I 8 TRIMETHOPRIM/SULFA R >=320 Legend: S = Susceptible I = Intermediate R = Resistant NS = Not susceptibl TOLERATES IV ROCEPHIN. NO SE. PHARMACIST IS EAGER TO CHANGE TO MERREM BUT I WOULD LIKE TO WAIT AND LET ROCEPHIN WORK. WBC CAN BE HIGHER AND HAVE LAGGING RESPONSE. WILL DO DAILY LAB. WBC HAS COME DOWN. UA SHOWS BACTERIA SENSITIVE TO ROCEPHIN. I SEE NO REASON TO CHANGE ANTIBIOTIC SO FAR. UTI IS CLEARED NOW. CONTROLLED WITH ROCEPHIN ALONE. (2) Hypotension Current Visit: Yes Status: Resolved Plan: MANAGE WITH BOLUS AND LEVOPHED CONTROLLING INFECTION WILL CONTROL THIS. OFF LEVOPHED NOW. CAN GO TO THE FLOOR. RESOLVED. (3) Hypokalemia Current Visit: Yes Status: Resolved Plan: REPLACE K, FU DAILY. STABLE NOW. (4) A-fib Current Visit: No Status: Chronic Plan: WATCH HG ELIQUIS MAY NEED TO BE HELD. WILL FU. Qualifiers: Atrial fibrillation type: unspecified chronic Qualified Code(s): I48.20 - Chronic atrial fibrillation, unspecified; I48.2 - Chronic atrial fibrillation (5) Metabolic encephalopathy Current Visit: No Status: Acute Plan: SEPSIS RELATED. (6) Seizure disorder Current Visit: No Status: Chronic Plan: CONTINUE MEDS. KEPPRA TO CONTINUE. REDO EEG. SHE MAY HAVE ATYPICAL SEIZURES GIVING RISE TO THIS KIND OF NEUROLOGICAL SYMPTOMS. 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 SHE HAS LOW ORAL INTAKE SO WILL CONTINUE SALINE AT LOW RATE. WILL AVOID SALT TABLETS BP IS HIGH. SHE STAYS ABOUT 128 AVERAGE ON SODIUM. (8) HTN (hypertension) Current Visit: No Status: Chronic Plan: RESUME MEDS MAY HAVE TO USE IV MEDS UNTIL SHE WAKES UP. SHE HAS BEEN LIKE THIS BEFORE IN THE PAST SHE GETS VERY DEPRESSED IN THE HOSPITAL. Qualifiers: Hypertension type: primary hypertension Qualified Code(s): I10 - Essential (primary) hypertension (9) Depression Current Visit: Yes Status: Acute Plan: SHE GETS SITUATIONALLY DEPRESSED LIKE LAST ADMISSION. I WILL RAISE EFFEXOR DOSE. I WOULD TRY ADDERALL BUT WE DO NOT HAVE IT AT PHARMACY IN HOSPITAL. I DISCUSSED WITH DAUGHTER. SHE WANTS THE PATIENT TO BE BACK IN [employer] IN WHEN READY SHE DOES NOT DO WELL WITH CHANGES. RAISE THE DOSE TO 75 MG DAILY. CONT PT. (10) Alzheimer disease Current Visit: Yes Status: Chronic Plan: MORE PARANOIA AND HALLUCINATIONS IN HOSPITAL. MEDICAL MANAGEMENT. SHE TENDS TO IMPROVE OUTSIDE HOSPITAL. (11) Anemia Current Visit: Yes Status: Acute Plan: STABLE. NOT ABLE TO TAKE ELIQUIS OR LOVENOX HG DROPS. NOT A CANDIDATE FOR EGD OR COLONOSCOPY SHE IS DEBILITAED. DAUGHTER UNDERSTANDS. CHECK B12 , FERRITIN ETC.
[2021-12-30] MEDS ORDERED: CEFTRIAXONE 1000 MG/VIAL ONE (10:20)
[2021-12-30] MEDS: NITROGLYCERIN 0.2 MG/HR (5 MG) PATCH TD SCH (10:28)
[2021-12-30] MEDS: OXYBUTYNIN CHLORIDE 5 MG TAB PO SCH ×3 (10:30→21:50)
[2021-12-30] MEDS: VENLAFAXINE HCL XR 75 MG CAP PO SCH (10:30)
[2021-12-30] MEDS: levETIRAcetam 500 MG TAB PO SCH (10:31)
[2021-12-30] MEDS: SOTALOL HCL 80 MG TAB PO SCH ×3 (10:31→21:45)
[2021-12-30] MEDS: HYDRALAZINE HCL 25 MG TABLET PO SCH ×4 (10:31→21:46)
[2021-12-30] MEDS: THIAMINE 200 MG/2 ML INJ IVP SCH (10:33)
[2021-12-30] MEDS: CEFTRIAXONE 1,000 MG in NA CHLORIDE 0.9% 50 ML IVPB SCH ×2 (10:33→21:44)
[2021-12-30] MEDS: AMLODIPINE 5 MG TAB PO SCH (10:34)
[2021-12-30 11:31] LABS: Absolute Lymphocytes (CBC) 1.7 K/uL (0.7-4.9); Hematocrit 26.3 % (36.0-45.0); Lymphocytes % 20.1 % (15.3-44.8); MPV 8.3 fL (7.6-11.3); RBC Red Blood Cell Count 3.24 M/uL (3.86-4.86)
[2021-12-30 11:44] LABS: Potassium 3.9 mmol/L (3.5-5.1)
[2021-12-30] MEDS: TAMSULOSIN 0.4 MG SR CAP PO SCH ×2 (21:00→21:46)
[2021-12-31] MEDS: METOPROLOL TARTRATE 5 MG/5 ML INJ IV PRN (00:36)
[2021-12-31] MEDS: levETIRAcetam 500 MG TAB PO SCH (08:27)
[2021-12-31] MEDS: SOTALOL HCL 80 MG TAB PO SCH (08:28)
[2021-12-31] MEDS: OXYBUTYNIN CHLORIDE 5 MG TAB PO SCH (08:29)
[2021-12-31] MEDS: AMLODIPINE 5 MG TAB PO SCH (08:29)
[2021-12-31] MEDS: ENSURE ENLIVE 237 ML CAN PO SCH (08:39)
[2021-12-31] MEDS: CEFTRIAXONE 1,000 MG in NA CHLORIDE 0.9% 50 ML IVPB SCH (08:40)
[2021-12-31] MEDS: THIAMINE 200 MG/2 ML INJ IVP SCH (08:46)
[2021-12-31] MEDS: HYDRALAZINE HCL 25 MG TABLET PO SCH ×2 (09:00→14:06)
[2021-12-31] MEDS: NITROGLYCERIN 0.2 MG/HR (5 MG) PATCH TD SCH (10:10)
[2021-12-31] MEDS: VENLAFAXINE HCL XR 75 MG CAP PO SCH (10:39)
[2021-12-31 10:54] VITALS: O2SAT 93
[2021-12-31 12:10] VITALS: BP 179/77; TEMP 97.2
--- NOTE | 2021-12-31 17:46 | P.DS ---
Admission Date: 12/22/21 Discharge Date: 12/31/21 Disposition: ROUTINE DISCHARGE Discharge Condition: FAIR Reason for Admission: AWAKE AND CONFUSED - Problems (1) Sepsis secondary to UTI Status: Acute (2) Hypotension Status: Resolved (3) Hypokalemia Status: Resolved (4) A-fib Status: Chronic Qualifiers: Atrial fibrillation type: unspecified chronic Qualified Code(s): I48.20 - Chronic atrial fibrillation, unspecified; I48.2 - Chronic atrial fibrillation (5) Metabolic encephalopathy Status: Acute (6) Seizure disorder Status: Chronic (7) SIADH (syndrome of inappropriate ADH production) Status: Chronic (8) HTN (hypertension) Status: Chronic Qualifiers: Hypertension type: primary hypertension Qualified Code(s): I10 - Essential (primary) hypertension (9) Depression Status: Acute (10) Alzheimer disease Status: Chronic (11) Anemia Status: Acute Brief History of Present Illness: DHIRAJ HAS HTN, SEIZURES, A FIB AND RECENTLY HAD MORE CONFUSION WHEN DAUGHTER CALLED US I ORDERED UA AND CULTURE, STARTED HER ON CIPRO, LATER FOUND FROM CULTURE THAT UTI WAS RESISTANT TO CIPRO SO I CHANGED TO AUGMENTIN BUT BEFORE IT HAD TIME TO WORK SHE ENDS UP IN [place]. HER BP ON ADMISSION WAS 70 SYSTOLIC. SHE IS BETTER AFTER IV FULIDS BUT BP KEEPS ON DROPPING TO 70 SO I ASKED TO START LEVOPHED DRIPS. I TALKED TO DAUGHTER AT BEDSIDE. Hospital Course: DHIRAJ COMES IN WITH UROSEPSIS. STAYS CONFUSED, DISORIENTED, DOES NOT EAT DESPITE UTI BEING CONTROLLED. SHE HAS HAD THIS EPISODES BEFORE. SHE IS WEAK, NOT WALKING MUCH. SHE MAY GO ON HOSPICE TO AVOID READMISSIONS I SUSPECT SHE IS GRADUALLY DECLINING IN HER MENTAL AND PHYSICAL STATUS. 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 Vital Signs/Physical Exam: Temp Pulse Resp BP Pulse Ox 97.2 F 69 20 179/77 H 95 12/31/21 12:00 12/31/21 12:00 12/31/21 12:00 12/31/21 12:00 12/31/21 12:00 Laboratory Data at Discharge: WBC 8.5 K/uL (4.3-10.9) D 12/30/21 10:46 Hgb 9.0 g/dL (12.0-15.0) L 12/30/21 10:46 Hct 26.3 % (36.0-45.0) L 12/30/21 10:46 Plt Count 382 K/uL (152-406) 12/30/21 10:46 PT 16.5 SECONDS (9.5-12.5) H 12/21/21 23:45 INR 1.49 12/21/21 23:45 Sodium 126 mmol/L (136-145) L 12/30/21 10:46 Potassium 3.9 mmol/L (3.5-5.1) 12/30/21 10:46 BUN 12 mg/dL (7-18) 12/30/21 10:46 Creatinine 0.47 mg/dL (0.55-1.3) L 12/30/21 10:46 Glucose 77 mg/dL (74-106) 12/30/21 10:46 Magnesium 1.9 mg/dL (1.8-2.4) 12/23/21 04:30 Total Bilirubin 0.3 mg/dL (0.2-1.0) 12/21/21 23:45 AST 24 U/L (15-37) 12/21/21 23:45 ALT 23 U/L (12-78) 12/21/21 23:45 Alkaline Phosphatase 95 U/L (45-117) 12/21/21 23:45 Home Medications: cloNIDine HCL [Clonidine HCl] 1 tab PO Q4H PRN 08/10/21 levETIRAcetam [Levetiracetam] 250 mg PO DAILY 11/24/21 Sotalol HCl [Betapace AF] 40 mg PO BID #90 tablet 11/28/21 Amlodipine [Norvasc*] 1 tab PO DAILY 12/23/21 Hydralazine [Apresoline*] 1 tab PO TID 12/23/21 Aspirin [Aspirin EC 81 MG] 81 mg PO DAILY #100 tablet. 12/31/21 Tamsulosin [Flomax*] 0.4 mg PO BEDTIME #90 cap 12/31/21 Venlafaxine HCl *Xr* [Effexor XR] 75 mg PO DAILY #90 cap 12/31/21 New Medications: Aspirin [Aspirin EC 81 MG] 81 mg PO DAILY #100 tablet. Venlafaxine HCl *Xr* [Effexor XR] 75 mg PO DAILY #90 cap Tamsulosin [Flomax*] 0.4 mg PO BEDTIME #90 cap Followup: Unknown,U [Primary Care Provider] -
--- NOTE | 2022-01-01 07:29 | EEG ---
CHART: [id number] TEST ID#: [id number] DATE OF STUDY: 12-31-2021 THE EEG WAS RECORDED PORTABLE IN THE PATIENT'S ROOM ON A 17 CHANNEL MACHINE. ELECTRODES WERE APPLIED IN THE USUAL MANNER USING THE INTERNATIONAL 10-20 SYSTEM. THE WAKING BACKGROUND RHYTHM IN THIS RECORD CONSISTS OF WELL DEVELOPED AND WELL ORGANIZED WAVES OF 9 HZ., MAXIMAL IN THE POSTERIOR HEAD REGIONS WHICH ATTENUATE NORMALLY WITH EYE OPENING. LOW-VOLTAGE 18-22 HZ ACTIVITY IS EXPRESSED IN THE FROTNAL REGIONS. THERE ARE NO FOCAL OR LATERALIZING FEATURES. NO EPILEPTIFORM ACTIVITY APPEARS. SLEEP DID NOT OCCUR. HYPERVENTILATION WAS NOT PERFORMED. PHOTIC STIMULATION PRODUCED GOOD DRIVING BILATERALLY. IMPRESSION: NORMAL EEG FOR THE AGE OF THE PATIENT IN [place].
[2022-01-01 17:25] LABS: Albumin, (SPE) 2.3 g/dL (3.8-4.8); Alpha-1-Globulins 0.6 g/dL (0.2-0.3); Gamma Globulins 1.4 g/dL (0.8-1.7); INTERPRETATION REPORT
[2022-01-03 19:52] LABS: Immunoglobulin A 610 mg/dL (70-320); Tissue Transglutaminase IgA Ab <1.0 U/mL (<15.0)
== END 2021-12-31 15:50 | disposition home health service (06) | DRG 871 ==
LOC: ER 23:06 → ERHOLD 12-22 04:13 → 3RD-ICU 12-22 20:31 → 2ND 12-23 17:25
PROVIDERS: ADMIT Internal Medicine; ATTEND Internal Medicine
DX: A41.9 Sepsis, unspecified organism (principal); R65.21 Severe sepsis with septic shock; G93.41 Metabolic encephalopathy; N39.0 Urinary tract infection, site not specified; Z16.11 Resistance to penicillins; Z16.29 Resistance to other single specified antibiotic; I48.20 Chronic atrial fibrillation, unspecified; E22.2 Syndrome of inappropriate secretion of antidiuretic hormone; B96.20 Unspecified Escherichia coli [E. coli] as the cause of diseases classified elsewhere; B96.89 Other specified bacterial agents as the cause of diseases classified elsewhere; I95.9 Hypotension, unspecified; E87.6 Hypokalemia; G40.909 Epilepsy, unspecified, not intractable, without status epilepticus; I10 Essential (primary) hypertension; F32.A Depression, unspecified; G30.9 Alzheimer's disease, unspecified; F02.80 Dementia in other diseases classified elsewhere, unspecified severity, without behavioral disturbance, psychotic disturbance, mood disturbance, and anxiety; D64.9 Anemia, unspecified; Z20.822 Contact with and (suspected) exposure to COVID-19
CPT/HCPCS: 0240U; 36415; 51702; 70450; 71045; 80048; 80076; 80307; 80320; 80329; 81003; 82140; 82550; 82553; 82607; 82728; 82784; 82805; 82947; 83516; 83540; 83605; 83735; 83880; 84145; 84165; 84466; 84484; 85025; 85610; 87040; 87077; 87086; 87088; 87186; 90471; 90732; 93005; 94760; 95816; 96374; 97110; 97116; 97161; 97530; 99285; J0360; J3411; J3480; J7040; J7060

== ENCOUNTER 2022-02-23 14:09 | Emergency (ER) | payer OTHER ==
[2022-02-23] MEDS ORDERED: TRAMADOL HCL 50 MG TAB ONE (14:54)
--- NOTE | 2022-02-23 15:03 | RAD REPORT ---
EXAM DESCRIPTION: Cat Single View02/23/2022 2:53 pm CLINICAL HISTORY: Chest pain COMPARISON: December 2021 FINDINGS: The lungs appear clear of acute infiltrate. The heart is mildly to moderately enlarged Anterior humeral head dislocation. Mildly displaced humeral neck fracture
--- NOTE | 2022-02-23 15:03 | RAD REPORT ---
EXAM DESCRIPTION: RAD - Shoulder Left 2 View - 02/23/2022 2:52 pm CLINICAL HISTORY: Left shoulder pain status post fall FINDINGS: Anterior humeral head dislocation. Mildly displaced humeral neck fracture
[2022-02-23] MEDS ORDERED: FENTANYL CITR 100 MCG/2 ML ONE (16:05)
[2022-02-23] MEDS ORDERED: ONDANSETRON 4 MG/2 ML VIAL ONE (16:05)
[2022-02-23] MEDS ORDERED: propofoL 200 MG/20 ML VIAL IV ONE (16:06)
--- NOTE | 2022-02-23 17:04 | RAD REPORT ---
EXAM DESCRIPTION: RAD - Shoulder 1 View - 02/23/2022 4:51 pm CLINICAL HISTORY: shoulder pain FINDINGS: Previous treated prior dislocation has been reduced Prominent Hill-Sachs deformity
--- NOTE | 2022-02-23 17:20 | EDPHYS ---
Physician Documentation [facility] Name: Larissa Wharton Age: 86 yrs Sex: Female : 1935 Arrival Date: 02/23/2022 Time: 14:14 Bed 8 Private MD: ED Physician Ronal Ag HPI: 02/23 14:33 This 86 yrs old Female presents to ER via EMS with complaints of fall, left shoulder rn injury and pain. 14:33 Details of fall: The patient fell from an upright position, while walking. Onset: The rn symptoms/episode began/occurred just prior to arrival. Associated injuries: The patient sustained left shoulder. Severity of symptoms: At their worst the symptoms were mild, in the emergency department the symptoms are unchanged. The patient has not experienced similar symptoms in the past. The patient has not recently seen a physician. Denies head injury or LOC. Denies neck/chest/abd/back pain. No hip or pelvic pain.. Historical: - Allergies: 14:22 Cephalexin; jd3 14:22 Dilantin; jd3 14:22 Latex, Natural Rubber; jd3 14:22 Phenytoin; jd3 - PMHx: 14:22 a fib; Dementia; Hypertensive disorder; jd3 - Immunization history:: Adult Immunizations up to date. - Social history:: Smoking status: Patient denies any tobacco usage or history of. - Family history:: not pertinent. - Hospitalizations: : No recent hospitalization is reported. ROS: 14:33 Constitutional: Negative for fever, chills, and weight loss, Eyes: Negative for injury, rn pain, redness, and discharge, Neck: Negative for injury, pain, and swelling, Cardiovascular: Negative for chest pain, palpitations, and edema, Respiratory: Negative for shortness of breath, cough, wheezing, and pleuritic chest pain, Abdomen/GI: Negative for abdominal pain, nausea, vomiting, diarrhea, and constipation, Back: Negative for injury and pain, MS/Extremity: + left shoulder injury and pain Skin: Negative for injury, rash, and discoloration, Neuro: Negative for headache, weakness, numbness, tingling, and seizure. Exam: 14:33 Constitutional: This is a well developed, well nourished patient who is awake, alert, rn and in no acute distress. Head/Face: Normocephalic, atraumatic. Eyes: Periorbital areas with no swelling, redness, or edema. Neck: Trachea midline, no thyromegaly or masses palpated, and no cervical lymphadenopathy. Supple, full range of motion without nuchal rigidity, or vertebral point tenderness. No Meningismus. Chest/axilla: Normal chest wall appearance and motion. Nontender with no deformity. No lesions are appreciated. Cardiovascular: Regular rate and rhythm. No pulse deficits. Respiratory: No increased work of breathing, no retractions or nasal flaring. Abdomen/GI: Soft, non-tender, with normal bowel sounds. No distension or tympany. No guarding or rebound. No evidence of tenderness throughout. Back: No spinal tenderness. No costovertebral tenderness. Full range of motion. Skin: Warm, dry with normal turgor. Normal color with no rashes, no lesions, and no evidence of cellulitis. MS/ Extremity: Pulses equal, no cyanosis. Neurovascular intact. + mild painful ROM left shoulder, no ecchymosis or deformity Neuro: Awake and alert, GCS 15, oriented to person, place, time, and situation. Cranial nerves II-XII grossly intact. Motor strength 5/5 in all extremities. Sensory grossly intact. Cerebellar exam normal. Normal gait. Vital Signs: 14:23 BP 169 / 85; Pulse 77; Resp 18 S; Temp 97.8(TE); Pulse Ox 97% on R/A; Weight 63.5 kg jd3 (R); Height 4 ft. 11 in. (149.86 cm) (R); Pain 8/10; 15:48 BP 180 / 75; Pulse 58; Resp 16; Pulse Ox 99% on R/A; jd3 16:35 BP 163 / 71; Pulse 60; Resp 16; Pulse Ox 100% on R/A; jd3 16:47 Pain 0/10; jd3 16:47 Pain 0/10; jd3 14:23 Body Mass Index 28.28 (63.50 kg, 149.86 cm) jd3 Procedures: 16:23 Reduction: of the left shoulder, using traction, manipulation, Immobilized with sling, rn Patient tolerated well. Post reduction film - reveals normal alignment. MDM: 14:14 Patient medically screened. rn 16:24 Differential diagnosis: contusion, fracture, dislocation. Data reviewed: vital signs, rn nurses notes, radiologic studies, plain films, and as a result, I will. ED course: Pt only re. 17:18 Counseling: I had a detailed discussion with the patient and/or guardian regarding: the rn historical points, exam findings, and any diagnostic results supporting the discharge/admit diagnosis, radiology results, the need for outpatient follow up, to return to the emergency department if symptoms worsen or persist or if there are any questions or concerns that arise at home. Response to treatment: the patient's symptoms have markedly improved after treatment, and as a result, I will discharge patient. Special discussion: I discussed with the patient/guardian in detail that at this point there is no indication for admission to the hospital. It is understood, however, that if the symptoms persist or worsen the patient needs to return immediately for re-evaluation. Based on the history and exam findings, there is no indication for further emergent testing or inpatient evaluation. I discussed with the patient/guardian the need to see the orthopedic surgeon for further evaluation of the symptoms. 02/23 14:14 Order name: XRAY Shoulder LEFT 2 view; Complete Time: 15:05 rn 02/23 14:14 Order name: XRAY Chest (1 view); Complete Time: 15:05 rn 02/23 16:24 Order name: XRAY Shoulder (1 View); Complete Time: 17:14 rn 02/23 15:34 Order name: IV Start; Complete Time: 15:51 rn Administered Medications: 14:50 Drug: traMADol 50 mg Route: PO; jd3 15:50 Follow up: Response: No adverse reaction; RASS: Alert and Calm (0) jd3 16:10 Drug: Zofran (Ondansetron) 4 mg Route: IVP; Site: right antecubital; jd3 16:47 Follow up: Response: No adverse reaction jd3 16:10 Drug: fentaNYL (PF) 25 mcg Route: IVP; Site: right antecubital; jd3 16:47 Follow up: Pain 0/10 Adult; Response: No adverse reaction; RASS: Alert and Calm (0) jd3 16:16 Drug: Propofol 20 mg {Note: given by provider at bedside. RASS of 0.} Route: IVP; Site: jd3 right antecubital; 16:47 Follow up: Pain 0/10 Adult; Response: No adverse reaction; RASS: Alert and Calm (0) jd3 16:45 Not Given (Physician Discretion): Propofol 100 mg IVP once; Document RASS score. jd3 16:45 Not Given (Physician Discretion): fentaNYL (PF) 50 mcg IVP once jd3 Disposition Summary: 02/23/22 17:19 Discharge Ordered Location: Home rn Problem: new rn Symptoms: have improved rn Condition: Stable rn Diagnosis - Other dislocation of left shoulder joint - With Hill-sachs deformity rn Followup: rn - With: Jim Fitzpatrick MD - When: As needed - Reason: Recheck today's complaints, Re-evaluation by your physician Discharge Instructions: - Discharge Summary Sheet rn - Shoulder Dislocation rn Forms: - Medication Reconciliation Form rn - Thank You Letter rn - Antibiotic private duty rn - Prescription Opioid Use rn Signatures: Dispatcher [employer] Ronal Michaud MD MD rn Davies, Jonathon, RN RN jd3
--- NOTE | 2022-02-23 17:20 | ER ---
Nurse's Notes [facility] Name: Larissa Wharton Age: 86 yrs Sex: Female : 1935 Arrival Date: 02/23/2022 Time: 14:14 Bed 8 Private MD: Diagnosis: Other dislocation of left shoulder joint-With Hill-sachs deformity Presentation: 02/23 14:15 Chief complaint: EMS states: "pt had an unwitnessed fall and was down for about 2-3 min jd3 prior to someone finding her. she denied hitting her head. she is reporting left shoulder pain today that is worse with movement. she is on Eliquis, but again denies hitter her head. no LOC reported. the pt reported she tripped after her toe got caught on the ground, so it was a mechanical fall.". Coronavirus screen: At this time, the client does not indicate any symptoms associated with coronavirus-19. Ebola Screen: No symptoms or risks identified at this time. Initial Sepsis Screen: Does the patient meet any 2 criteria? No. Patient's initial sepsis screen is negative. Does the patient have a suspected source of infection? No. Patient's initial sepsis screen is negative. Risk Assessment: Do you want to hurt yourself or someone else? Patient reports no desire to harm self or others. Onset of symptoms was February 23, 2022. Transition of care: patient was received from another setting of care (long-term care facility), [facility]. 14:15 Method Of Arrival: EMS: [facility] jd3 14:15 Acuity: SHELDON 3 jd3 Historical: - Allergies: 14:22 Cephalexin; jd3 14:22 Dilantin; jd3 14:22 Latex, Natural Rubber; jd3 14:22 Phenytoin; jd3 - PMHx: 14:22 a fib; Dementia; Hypertensive disorder; jd3 - Immunization history:: Adult Immunizations up to date. - Social history:: Smoking status: Patient denies any tobacco usage or history of. - Family history:: not pertinent. - Hospitalizations: : No recent hospitalization is reported. Screenin:25 Abuse screen: Denies threats or abuse. Nutritional screening: No deficits noted. jd3 Tuberculosis screening: No symptoms or risk factors identified. Fall Risk Ambulatory Aid- None/Bed Rest/Nurse Assist (0 pts). Gait- Normal/Bed Rest/Wheelchair (0 pts) Mental Status- Oriented to own ability (0 pts). Total Monroy Fall Scale indicates No Risk (0-24 pts). Assessment: 14:24 General: Appears in no apparent distress. comfortable, Behavior is calm, cooperative, jd3 appropriate for age. Pain: Complains of pain in left shoulder Quality of pain is described as sharp, tender. Neuro: [place] Agitation-Sedation Scale (RASS): 0 - Alert and Calm Level of Consciousness is awake, alert, obeys commands, Oriented to person, place, time, situation, Moves all extremities. Full function Speech is normal, Facial symmetry appears normal, Pupils are PERRLA, Intact. Cardiovascular: Denies chest pain, Capillary refill < 3 seconds Patient's skin is warm and dry. Respiratory: Airway is patent Respiratory effort is even, unlabored, Respiratory pattern is regular, symmetrical, Denies cough, shortness of breath. GI: No signs and/or symptoms were reported involving the gastrointestinal system. : No signs and/or symptoms were reported regarding the genitourinary system. EENT: No signs and/or symptoms were reported regarding the EENT system. Derm: Skin is intact, Skin is dry, Skin is normal, Skin temperature is warm. Musculoskeletal: Circulation, motion, and sensation intact. Range of motion: limited in left shoulder. 15:48 Reassessment: No changes from previously documented assessment. Patient and/or family jd3 updated on plan of care and expected duration. Pain level reassessed. Patient is alert, oriented x 3, equal unlabored respirations, skin warm/dry/pink. 16:16 Reassessment: conscious sedation started. see conscious sedation flow sheet. provider jd3 at bedside to administer medication and reduce left shoulder. 16:25 Reassessment: shoulder immobilizer applied to left shoulder. pt remains drowsy, nurse jd3 remains at bedside. 16:35 Reassessment: Patient and/or family updated on plan of care and expected duration. Pain jd3 level reassessed. Patient is alert, oriented x 3, equal unlabored respirations, skin warm/dry/pink. pt fully awake and alert at this time. conscious sedation charting concluded. Patient denies pain at this time. Patient states feeling better. 17:46 Reassessment: Patient and/or family updated on plan of care and expected duration. Pain jd3 level reassessed. Patient is alert, oriented x 3, equal unlabored respirations, skin warm/dry/pink. Patient denies pain at this time. Patient states feeling better. Vital Signs: 14:23 BP 169 / 85; Pulse 77; Resp 18 S; Temp 97.8(TE); Pulse Ox 97% on R/A; Weight 63.5 kg jd3 (R); Height 4 ft. 11 in. (149.86 cm) (R); Pain 8/10; 15:48 BP 180 / 75; Pulse 58; Resp 16; Pulse Ox 99% on R/A; jd3 16:35 BP 163 / 71; Pulse 60; Resp 16; Pulse Ox 100% on R/A; jd3 16:47 Pain 0/10; jd3 16:47 Pain 0/10; jd3 14:23 Body Mass Index 28.28 (63.50 kg, 149.86 cm) jd3 ED Course: 14:14 Patient arrived in ED. rn 14:14 Ronal Ag MD is Attending Physician. rn 14:15 Eric Gibbons, TITO is Primary Nurse. jd3 14:21 Triage completed. jd3 14:24 Arm band placed on. jd3 14:25 Patient has correct armband on for positive identification. Bed in low position. Call j light in reach. Side rails up X2. Pulse ox on. NIBP on. 14:54 XRAY Shoulder LEFT 2 view In Process Unspecified. EDMS 14:54 XRAY Chest (1 view) In Process Unspecified. EDMS 15:49 Inserted saline lock: 20 gauge in right antecubital area, using aseptic technique. jd3 Blood collected. 15:50 Consent for conscious sedation explained by staff, explained by physician, signed by [facility] daughter, medical power of registered nurse renal.. 16:53 XRAY Shoulder (1 View) In Process Unspecified. EDMS 17:18 Jim Fitzpatrick MD is Referral Physician. rn 17:46 Assist provider with bone marrow aspiration. IV discontinued, intact, bleeding jd3 controlled, No redness/swelling at site. Pressure dressing applied. Administered Medications: 14:50 Drug: traMADol 50 mg Route: PO; jd3 15:50 Follow up: Response: No adverse reaction; RASS: Alert and Calm (0) jd3 16:10 Drug: Zofran (Ondansetron) 4 mg Route: IVP; Site: right antecubital; jd3 16:47 Follow up: Response: No adverse reaction jd3 16:10 Drug: fentaNYL (PF) 25 mcg Route: IVP; Site: right antecubital; jd3 16:47 Follow up: Pain 0/10 Adult; Response: No adverse reaction; RASS: Alert and Calm (0) jd3 16:16 Drug: Propofol 20 mg {Note: given by provider at bedside. RASS of 0.} Route: IVP; Site: jd3 right antecubital; 16:47 Follow up: Pain 0/10 Adult; Response: No adverse reaction; RASS: Alert and Calm (0) jd3 16:45 Not Given (Physician Discretion): Propofol 100 mg IVP once; Document RASS score. jd3 16:45 Not Given (Physician Discretion): fentaNYL (PF) 50 mcg IVP once jd3 Medication: 14:25 VIS not applicable for this client. jd3 Outcome: 17:19 Discharge ordered by . rn 17:46 Discharged to home via wheelchair, with family. jd3 17:46 Condition: stable 17:46 Discharge instructions given to patient, family, Instructed on discharge instructions, follow up and referral plans. Demonstrated understanding of instructions, follow-up care. 17:47 Patient left the ED. jd3 Signatures: Dispatcher [employer] EDMS Ronal Ag MD MD rn Davies, Jonathon, RN RN jvic Corrections: (The following items were deleted from the chart) 15:53 15:48 Pulse 58bpm; Resp 16bpm; Pulse Ox 99% RA; jd3 jd3 16:52 15:48 Pulse 58bpm; Resp 16bpm; Pulse Ox 99% RA; jd3 jd3
[2022-02-23 17:53] VITALS: TEMP 97.8
[2022-02-23 17:56] VITALS: BP 163/71; O2SAT 100
== END 2022-02-23 17:47 | disposition home or self-care (01) ==
LOC: ER 14:09
PROC: 0PS6XZZ Reposition Left Scapula, External Approach (ICD-10-PCS; principal; 2022-02-23)
DX: S42.292A Other displaced fracture of upper end of left humerus, initial encounter for closed fracture (principal); S43.085A Other dislocation of left shoulder joint, initial encounter; I10 Essential (primary) hypertension; F03.90 Unspecified dementia, unspecified severity, without behavioral disturbance, psychotic disturbance, mood disturbance, and anxiety; Z88.8 Allergy status to other drugs, medicaments and biological substances; Z88.1 Allergy status to other antibiotic agents; Z91.040 Latex allergy status
CPT/HCPCS: 71045; 73020; 73030; 23575; J2704; J3010; J2405; 96374; 96375; 99285

== ENCOUNTER 2022-05-03 12:52 | Observation (INO) | payer OTHER ==
--- OUTSIDE RECORDS SUMMARY | 2022-05-03 12:55 | XMS REPORT | Continuity of Care Document ---
:1935 Author Organization [facility] t Address [address] [place] [address] [address] [place] [address] Care Team Providers Name Role Phone Santosh, Jeremy Attending Clinician Unavailable Problems This patient has no known problems. Allergies, Adverse Reactions, Alerts This patient has no known allergies or adverse reactions. Medications This patient has no known medications. Procedures This patient has no known procedures. Encounters Start End Encounter Admission Attending Care Care Encounter Source Date/Time Date/Time Type Type Clinicians Facility Department ID 2022-03-18 Outpatient Santosh, STLMLC STLMLC [id number] Common 13:21:02 Jeremy [facility] 2022-02-25 Outpatient Santosh, STLMLC STLMLC [id number] Common 14:49:02 Jeremy [facility] 2022-04-17 2022-04-17 ambulatory STLMLC STLMLC [id number] Common 00:00:00 00:00:00 [facility] 2022-03-18 2022-03-18 ambulatory STLMLC STLMLC [id number] Common 00:00:00 00:00:00 [facility] 2022-02-25 2022-02-25 ambulatory STLMLC STLMLC [id number] Common 00:00:00 00:00:00 [facility] Results This patient has no known results.
[2022-05-03 13:25] LABS: Absolute Lymphocytes (CBC) 1.2 K/uL (0.7-4.9); Hematocrit 25.5 % (36.0-45.0); MCV 77.6 fL (80-100); MPV 8.5 fL (7.6-11.3); RBC Red Blood Cell Count 3.28 M/uL (3.86-4.86)
--- NOTE | 2022-05-03 13:32 | RAD REPORT ---
EXAM DESCRIPTION: RAD - Chest Single View - 05/03/2022 1:24 pm CLINICAL HISTORY: Malaise COMPARISON: Chest Pa And Lat (2 Views) dated 03/21/2022; Chest Single View dated 02/23/2022; Chest Singl e View dated 12/22/2021; Chest Single View dated 11/25/2021; Chest Pa And Lat (2 Views) dated 03/05/2016 FINDINGS: Lines: None. Lungs: No evidence of edema or pneumonia. Pulmonary vascular congestion. Pleural: No significant pleural effusions or pneumothorax. Cardiac: Cardiomegaly. Mediastinum: Within normal limits. Bones: No acute fractures. Other: None IMPRESSION: Pulmonary vascular congestion without alveolar edema or consolidative airspace disease.
[2022-05-03 13:58] LABS: Troponin High Sensitivity 13.6 pg/mL (<58.9)
[2022-05-03 13:59] LABS: Potassium 4.4 mmol/L (3.5-5.1)
--- NOTE | 2022-05-03 15:26 | P.HP ---
Certification for Inpatient Patient admitted to: Observation With expected LOS: <2 Midnights Practitioner: I am a practitioner with admitting privileges, knowledge of patient current condition, hospital course, and medical plan of care. Services: Services provided to patient in accordance with Admission requirements found in Title 42 Section 412.3 of the Code of Federal Regulations Patient History Date of Service: 05/04/22 Reason for admission: Hypotension bradycardia History of Present Illness: Patient is 86 years of age admitted from the emergency room with progressive we akness and shortness of breath the past worse over the past 6 weeks blood pressure medication has been reduced patient has been confined to a wheelchair admitted with severe hypotension and low pulse denies any fever chills just recent mild diarrhea feeling very weak no fever chills found to have a blood pressure of 80/50 with a heart rate of 34 degree block on EKG atropine was given in the field and Allergies latex [Latex] Allergy (Intermediate, Verified 11/10/13 01:26) Hives/Rash cephalexin [From Keflex] Adverse Reaction (Intermediate, Verified 11/24/21 22:43) AGITATION phenytoin [From Dilantin] Adverse Reaction (Intermediate, Verified 11/24/21 22:43) AGITATION Home Medications: Acetaminophen 500 mg PO Q6H PRN 05/04/22 Aspirin [Aspirin EC] 81 mg PO DAILY 05/04/22 Biotin 5 mg PO DAILY 05/04/22 Calcium Carb, Citrate/Vit D3 [Citracal-D3 ER 600 mg-500 Unit] 2 tab PO BID 05/04/22 Famotidine 20 mg PO DAILY 05/04/22 Furosemide 20 mg PO DAILY 05/04/22 Galantamine HBr [Galantamine ER] 4 mg PO BID 05/04/22 Glucos Sul 2Kcl/MSM/Chond/C/Mn [Glucosamine Chondroitin Cap] 1 cap PO BID 05/04/22 Glutathione 1,000 mg PO DAILY 05/04/22 Hydralazine [Apresoline*] 25 mg PO BID 05/04/22 LORazepam [Ativan*] 0.5 mg PO Q2H PRN 05/04/22 Levetiracetam [Keppra] 250 mg PO BID 05/04/22 Loperamide HCl [Anti-Diarrheal] 2 mg PO Q4H PRN 05/04/22 Memantine HCl 5 mg PO BID 05/04/22 Multivitamin [Daily Nicole] 1 tab PO DAILY 05/04/22 Ondansetron [Zofran (Odt)*] 4 mg PO Q4H PRN 05/04/22 Propylene Glycol/Peg 400/Pf [Systane 0.3-0.4% Eye Drop] 1 gtt OPTH BID 05/04/22 Propylene Glycol/Peg 400/Pf [Systane 0.3-0.4% Eye Drop] 1 gtt OPTH Q6H PRN 05/04/22 Sodium Chloride/Aloe Vera [[place] Saline Nasal Gel] 1 appl IH BID PRN 05/04/22 Sotalol HCl [Sotalol] 40 mg PO BID 05/04/22 Spironolactone 50 mg PO DAILY 05/04/22 Tamsulosin [Flomax*] 0.4 mg PO DAILY 05/04/22 Triamcinolone Acetonide 1 appl TOP Q12H PRN 05/04/22 Venlafaxine HCl [Venlafaxine HCl ER] 1 cap PO DAILY 05/04/22 Vit C/E/Zn/Coppr/Lutein/Zeaxan [Preservision Areds 2 Softgel] 2 cap PO DAILY 05/04/22 cloNIDine HCL [Clonidine HCl] 0.1 mg PO Q4H PRN 05/04/22 - Past Medical/Surgical History Diabetic: No -: HTN -: Bladder urgency -: rt knee sx, rt breast mass removal, cholecystectomy, -: HLD, Hiatal hernia, GERD, -: Seizures -: Atrial fib -: Right knee SX -: Latia -: Breast Reduction -: foot sx -: wrist sx - Social History Alcohol use: No CD- Drugs: No Caffeine use: No Review of Systems 10-point ROS is otherwise unremarkable General: Weakness Respiratory: Shortness of Breath Physical Examination - Vital Signs Temperature: 98.1 F Blood Pressure: 92/56 Pulse: 37 Respirations: 26 Pulse Ox (%): 100 - Physical Exam General: Alert, Oriented x3 Neck: Supple Respiratory: Clear to auscultation bilaterally Cardiovascular: No edema, Normal S1 S2 Gastrointestinal: Normal bowel sounds, Soft and benign Musculoskeletal: No clubbing, No swelling - Studies Laboratory Data (last 24 hrs) 05/03/22 13:17: WBC 7.80, Hgb 8.3 L, Hct 25.5 L, Plt Count 311 05/03/22 13:17: Sodium 129 L, Potassium 4.4, BUN 31 H, Creatinine 0.95, Glucose 89 Assessment and Plan - Problems (Diagnosis) (1) Hypotension Current Visit: No Status: Resolved Plan: Patient is 86 years of age with a history of progressive diastolic failure admitted with very weakness shortness of breath hypotension bradycardia she has a history of A. fib, worse over the past 6 weeks patient has mild hyponatremia mild microcytic anemia will start on IV fluids hold sotalol patient has normal left ventricular function consider SGLT2 inhibitors first then the addition of spironolactone Qualifiers: Hypotension type: hypotension due to drug Qualified Code(s): I95.2 - Hypotension due to drugs (2) Microcytic anemia Current Visit: Yes Status: Acute Plan: Her microcytic anemia has steadily worsened check iron levels - Advance Directives Does patient have a Living Will: Yes Does patient have a Durable POA for Healthcare: Yes
[2022-05-03] MEDS ORDERED: NA CHLORIDE 0.9% 1,000 ML IV SCH (16:00)
[2022-05-03 17:49] LABS: SARS-CoV-2 Antigen Rapid Res Positive (Negative)
--- NOTE | 2022-05-03 18:11 | EDPHYS ---
Physician Documentation [facility] Name: Larissa Wharton Age: 86 yrs Sex: Female : 1935 Arrival Date: 05/03/2022 Time: 12:57 Bed 4 Private MD: ED Physician Gurmeet Lopes HPI: 05/03 18:04 This 86 yrs old Female presents to ER via EMS with complaints of Low BP, abdnormal EKG. kdr 18:04 EMS was called to the patient's residence when it was noted that her blood pressure was kdr 80/50. Patient is has been generally weak since this morning. At present the patient's blood pressure is 107/80. Patient's heart rate is 34 and a complete heart block. Patient was given 0.5 mg of atropine via IV by EMS. Patient takes beta-blockers for blood pressure control.. Onset: The symptoms/episode began/occurred just prior to arrival. Severity of symptoms: At their worst the symptoms were moderate severe just prior to arrival, in the emergency department the symptoms have improved mildly. It is unknown whether or not the patient has had similar symptoms in the past. It is unknown whether or not the patient has recently seen a physician. Historical: - Allergies: 13:03 Cephalexin; hb 13:03 Dilantin; hb 13:03 Latex, Natural Rubber; hb 13:03 Phenytoin; hb - PMHx: 13:03 a fib; Dementia; Hypertensive disorder; hb - Immunization history:: Adult Immunizations up to date. - Social history:: Smoking status: Patient denies any tobacco usage or history of. ROS: 18:04 Constitutional: Negative for fever, chills, and weight loss, Eyes: Negative for injury, kdr pain, redness, and discharge, Neck: Negative for injury, pain, and swelling, Respiratory: Negative for shortness of breath, cough, wheezing, and pleuritic chest pain, Abdomen/GI: Negative for abdominal pain, nausea, vomiting, diarrhea, and constipation, Back: Negative for injury and pain, : Negative for injury, bleeding, discharge, and swelling, MS/Extremity: Negative for injury and deformity, Skin: Negative for injury, rash, and discoloration, Neuro: Negative for headache, weakness, numbness, tingling, and seizure activity. Psych: Negative for depression, anxiety, suicide ideation, homicidal ideation, and hallucinations, Allergy/Immunology: Negative for hives, rash, and allergies, Endocrine: Negative for neck swelling, polydipsia, polyuria, polyphagia, and marked weight changes, Hematologic/Lymphatic: Negative for swollen nodes, abnormal bleeding, and unusual bruising. 18:04 Cardiovascular: Positive for Hypotension and bradycardia. Exam: 18:04 Constitutional: This is a well developed, well nourished patient who is awake, alert, kdr and in no acute distress. Head/Face: Normocephalic, atraumatic. Eyes: Pupils equal round and reactive to light, extra-ocular motions intact. Lids and lashes normal. Conjunctiva and sclera are non-icteric and not injected. Cornea within normal limits. Periorbital areas with no swelling, redness, or edema. Neck: Trachea midline, no thyromegaly or masses palpated, and no cervical lymphadenopathy. Supple, full range of motion without nuchal rigidity, or vertebral point tenderness. No Meningismus. Chest/axilla: Normal chest wall appearance and motion. Nontender with no deformity. No lesions are appreciated. Respiratory: Lungs have equal breath sounds bilaterally, clear to auscultation and percussion. No rales, rhonchi or wheezes noted. No increased work of breathing, no retractions or nasal flaring. Abdomen/GI: Soft, non-tender, with normal bowel sounds. No distension or tympany. No guarding or rebound. No evidence of tenderness throughout. Back: No spinal tenderness. No costovertebral tenderness. Full range of motion. Skin: Warm, dry with normal turgor. Normal color with no rashes, no lesions, and no evidence of cellulitis. MS/ Extremity: Pulses equal, no cyanosis. Neurovascular intact. Full, normal range of motion. Neuro: Awake and alert, GCS 15, oriented to person, place, time, and situation. Cranial nerves II-XII grossly intact. Motor strength 5/5 in all extremities. Sensory grossly intact. Cerebellar exam normal. Normal gait. Psych: Awake, alert, with orientation to person, place and time. Behavior, mood, and affect are within normal limits. 18:04 Cardiovascular: Rate: bradycardic, Rhythm: regular, Pulses: no pulse deficits are appreciated, Edema: 1+ edema to level of . 18:33 ECG was reviewed by the Attending Physician. kdr Vital Signs: 13:01 BP 92 / 56; Pulse 37; Resp 26; Temp 98.1; Pulse Ox 100% on R/A; Pain 0/10; hb 13:30 BP 101 / 58; Pulse 35; Resp 22; Pulse Ox 100% on R/A; bp 14:00 BP 115 / 48; Pulse 36; Resp 17; Pulse Ox 100% ; Pain 0/10; jh6 14:30 BP 107 / 72; Pulse 35; Resp 17; Pulse Ox 99% ; Pain 0/10; jh6 15:21 BP 120 / 37; Pulse 38; Resp 17; Pulse Ox 97% ; bp 15:53 BP 108 / 62; Pulse 36; Resp 16; Pulse Ox 100% ; Pain 0/10; jh6 17:55 BP 134 / 81; Pulse 59; Resp 15; Pulse Ox 99% ; bp 19:00 BP 156 / 59; Pulse 62; Resp 27; Pulse Ox 96% on R/A; jb4 20:00 BP 141 / 57; Pulse 61; Resp 18; Pulse Ox 95% on R/A; jb4 21:00 BP 137 / 59; Pulse 61; Resp 20; Pulse Ox 96% on R/A; jb4 22:00 BP 150 / 58; Pulse 60; Resp 19; Pulse Ox 97% on R/A; jb4 MDM: 18:04 Data reviewed: vital signs, nurses notes, lab test result(s), radiologic studies. kdr Counseling: I had a detailed discussion with the patient and/or guardian regarding: the historical points, exam findings, and any diagnostic results supporting the discharge/admit diagnosis, lab results, radiology results, the need for further work-up and treatment in the hospital. Physician consultation: Rusty Zhou MD. 18:04 ED course: I discussed the case with Dr. Prajapati. He asked that the beta-erica be kdr held for now and that he would reassess the patient in the morning and decide whether or not further intervention and/or transfer may be needed. 18:10 Patient medically screened. kdr 05/03 13:02 Order name: Basic Metabolic Panel; Complete Time: 14:43 hb 05/03 13:02 Order name: CBC with Diff; Complete Time: 14:43 hb 05/03 13:02 Order name: Troponin HS; Complete Time: 14:43 hb 05/03 15:24 Order name: CBC with Automated Diff EDDE 05/03 15:24 Order name: CBC with Automated Diff EDDE 05/03 15:25 Order name: Comprehensive Metabolic Panel EDDE 05/03 13:02 Order name: XRAY Chest (1 view); Complete Time: 14:43 hb 05/03 13:02 Order name: EKG; Complete Time: 13:03 hb 05/03 13:02 Order name: Cardiac monitoring; Complete Time: 13:30 hb 05/03 13:02 Order name: EKG - Nurse/Tech; Complete Time: 13:14 hb 05/03 15:24 Order name: CONS Physician Consult EDDE 05/03 15:25 Order name: Comprehensive Metabolic Panel EDDE 05/03 16:10 Order name: SARS RAPID em1 05/03 17:49 Order name: SARS-COV-2 Antigen Rapid EDDE 05/03 13:02 Order name: IV Saline Lock; Complete Time: 13:30 hb 05/03 13:02 Order name: Labs collected and sent; Complete Time: 13:30 hb 05/03 13:02 Order name: O2 Per Protocol; Complete Time: 13:30 hb 05/03 13:02 Order name: O2 Sat Monitoring; Complete Time: 13:30 hb EC:33 Rate is 37 beats/min. Rhythm is regular, Sinus bradycardia with No ectopy, 3rd degree kdr heart block. QRS Ste[place] is Normal. [place] interval is normal. QRS interval is normal. Clinical impression: Complete heart block. Administered Medications: No medications were administered Disposition Summary: 05/03/22 18:10 Hospitalization Ordered Hospitalization Status: Inpatient Admission kdr Provider: Rusty Zhou Condition: Fair kdr Problem: new kdr Symptoms: have improved kdr Bed/Room Type: Standard kdr Location: Telemetry/MedSurg (Inpatient)(05/03/22 21:19) cg Room Assignment: 415(05/03/22 21:19) cg Diagnosis - Bradycardia, unspecified kdr - Hypotension, unspecified kdr Forms: - Medication Reconciliation Form kdr - SBAR form kdr Signatures: Dispatcher [employer] EDMS Gurmeet Lopes MD MD kdr Neyda Flores RN RN cg Lore Bhakta RN RN Corrections: (The following items were deleted from the chart) 21:19 18:10 Intensive Care Unit kdr cg 21:19 18:10 kdr cg
--- NOTE | 2022-05-03 18:11 | ER ---
Nurse's Notes [facility] Name: Larissa Wharton Age: 86 yrs Sex: Female : 1935 Arrival Date: 05/03/2022 Time: 12:57 Bed 4 Private MD: Diagnosis: Bradycardia, unspecified;Hypotension, unspecified Presentation: 05/03 12:59 Chief complaint: EMS states: Toned out for BP 80/50, pt c/o generalized weakness since hb this morning. BP 107/80, HR 34, 3rd degree heart block on EKG. 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 13:01 Coronavirus screen: At this time, the client does not indicate any symptoms associated hb with coronavirus-19. Ebola Screen: No symptoms or risks identified at this time. 13:01 Method Of Arrival: EMS: [facility] 13:01 Risk Assessment: Do you want to hurt yourself or someone else? Patient reports no hb desire to harm self or others. Onset of symptoms was May 03, 2022. 13:01 Acuity: SHELDON 2 hb 14:00 Initial Sepsis Screen: Does the patient meet any 2 criteria? No. Patient's initial jh6 sepsis screen is negative. Does the patient have a suspected source of infection? No. Patient's initial sepsis screen is negative. Triage Assessment: 13:00 General: Appears in no apparent distress. ill, Behavior is calm, cooperative, flat. hb Pain: Denies pain. EENT: No signs and/or symptoms were reported regarding the EENT system. Neuro: Level of Consciousness is obeys commands, lethargic, Oriented to person, place, time, situation. Cardiovascular: Patient's skin is warm and dry. Rhythm is irregular, yakelin. Respiratory: Respiratory effort is even, unlabored, Respiratory pattern is regular, symmetrical. GI: No signs and/or symptoms were reported involving the gastrointestinal system. : No signs and/or symptoms were reported regarding the genitourinary system. Derm: Skin is pink, warm \T\ dry. Musculoskeletal: No signs and/or symptoms reported regarding the musculoskeletal system. Historical: - Allergies: 13:03 Cephalexin; hb 13:03 Dilantin; hb 13:03 Latex, Natural Rubber; hb 13:03 Phenytoin; hb - PMHx: 13:03 a fib; Dementia; Hypertensive disorder; hb - Immunization history:: Adult Immunizations up to date. - Social history:: Smoking status: Patient denies any tobacco usage or history of. Screenin:20 Abuse screen: Denies threats or abuse. Denies injuries from another. Nutritional hb screening: No deficits noted. Tuberculosis screening: No symptoms or risk factors identified. Fall Risk Total Monroy Fall Scale indicates Low Risk Score (25-44 pts). Fall prevention measures have been instituted. Side Rails Up X 2 Frequent Obs/Assesments occuring Family Present and informed to notify staff if they need to leave bedside. Assessment: 13:20 General: SEE TRIAGE ASSESSMENT. hb 13:30 Reassessment: Pt relocated to trauma 4, placed on pads. Moses Tanner updated. hb 13:30 Reassessment: RECD REPORT FROM ROGER FRANCIS. 86YO WF P/W HYPOTENSION, COMPLETE HEART BLOCK bp NOTED ON MONITOR. 14:00 Reassessment: No changes from previously documented assessment. Patient and/or family jh6 updated on plan of care and expected duration. Pain level reassessed. Patient is alert, oriented x 3, equal unlabored respirations, skin warm/dry/pink. Patient denies pain at this time. 15:00 Reassessment: No changes from previously documented assessment. Patient and/or family bp updated on plan of care and expected duration. Pain level reassessed. 15:54 Reassessment: No changes from previously documented assessment. Patient and/or family jh6 updated on plan of care and expected duration. Pain level reassessed. Patient is alert, oriented x 3, equal unlabored respirations, skin warm/dry/pink. family at bedside, pt resting without issues. Patient denies pain at this time. 17:55 Reassessment: Patient appears in no apparent distress at this time. Patient and/or bp family updated on plan of care and expected duration. Pain level reassessed. Vital Signs: 13:01 BP 92 / 56; Pulse 37; Resp 26; Temp 98.1; Pulse Ox 100% on R/A; Pain 0/10; hb 13:30 BP 101 / 58; Pulse 35; Resp 22; Pulse Ox 100% on R/A; bp 14:00 BP 115 / 48; Pulse 36; Resp 17; Pulse Ox 100% ; Pain 0/10; jh6 14:30 BP 107 / 72; Pulse 35; Resp 17; Pulse Ox 99% ; Pain 0/10; jh6 15:21 BP 120 / 37; Pulse 38; Resp 17; Pulse Ox 97% ; bp 15:53 BP 108 / 62; Pulse 36; Resp 16; Pulse Ox 100% ; Pain 0/10; jh6 17:55 BP 134 / 81; Pulse 59; Resp 15; Pulse Ox 99% ; bp 19:00 BP 156 / 59; Pulse 62; Resp 27; Pulse Ox 96% on R/A; jb4 20:00 BP 141 / 57; Pulse 61; Resp 18; Pulse Ox 95% on R/A; jb4 21:00 BP 137 / 59; Pulse 61; Resp 20; Pulse Ox 96% on R/A; jb4 22:00 BP 150 / 58; Pulse 60; Resp 19; Pulse Ox 97% on R/A; jb4 ED Course: 12:57 Patient arrived in ED. hb 13:02 Triage completed. hb 13:02 Gurmeet Lopes MD is Attending Physician. kdr 13:14 Lore Bhakta RN is Primary Nurse. hb 13:19 Arm band placed on. hb 13:20 Patient has correct armband on for positive identification. hb 13:22 Primary Nurse role handed off by Lore Bhakta, TITO bp 13:22 Son Beckford, TITO is Primary Nurse. bp 13:26 XRAY Chest (1 view) In Process Unspecified. EDMS 13:30 Maintain EMS IV. Dressing intact. Good blood return noted. Site clean \T\ dry. Gauge \T\ bp site: 20 GAUGE LEFT WRIST. 14:09 EKG done, by ED staff, reviewed by Gurmeet Lopes MD. jw7 18:09 Rusty Zhou MD is Hospitalizing Provider. kdr 22:25 No provider procedures requiring assistance completed. Patient admitted, IV remains in jb4 place. Administered Medications: No medications were administered Medication: 13:20 VIS not applicable for this client. hb Outcome: 18:10 Decision to Hospitalize by Provider. kdr 22:25 Admitted to Tele accompanied by tech, via stretcher, room 415, with chart, Report jb4 called to TITO Santamaria 22:25 Condition: stable 22:25 Discharge instructions given to family, Instructed on the need for admit, Demonstrated understanding of instructions. 23:23 Patient left the ED. vc1 Signatures: Dispatcher [employer] EDMS Gurmeet Lopes MD MD kdr Baxter, Heather, RN RN Uvaldo Gonzalez, RN RN jb4 Son Beckford RN RN bp Hastedt, Jennifer, RN RN jh6 Abbey Potter RN RN vc1 Love Oleary 7
[2022-05-03 23:55] VITALS: BMI 29.7
[2022-05-04] MEDS: NA CHLORIDE 0.9% 1,000 ML IV SCH ×3 (00:30→16:22)
[2022-05-04 06:26] LABS: Absolute Lymphocytes (CBC) 1.8 K/uL (0.7-4.9); Hematocrit 22.5 % (36.0-45.0); Lymphocytes % 23.2 % (15.3-44.8); MCV 75.9 fL (80-100); MPV 8.4 fL (7.6-11.3); RBC Red Blood Cell Count 2.96 M/uL (3.86-4.86)
[2022-05-04 06:38] LABS: Albumin 2.7 g/dL (3.4-5.0); Bilirubin Total 0.3 mg/dL (0.2-1.0); Potassium 3.9 mmol/L (3.5-5.1); Protein, Total 7.4 g/dL (6.4-8.2)
[2022-05-04 06:54] LABS: Ferritin 18.9 ng/mL (8-388); Thyroid Stimulating Hormone 1.49 uIU/mL (0.360-3.740)
[2022-05-04 07:38] LABS: White Blood Cell Scan OK (OK)
[2022-05-04 07:39] LABS: Anisocytosis 1+; Blood Morphology Comment NOTED (NOT SEEN); Hypochromasia 2+; Platelet Estimate ADEQ
--- NOTE | 2022-05-04 09:50 | P.PN ---
Subjective Date of Service: 05/04/22 Chief Complaint: Coronavirus positive Subjective: Improving (Patient is doing better eating and drinking well signs have been stable) Review of Systems Unremarkable General: Weakness Physical Examination - Vital Signs Temperature: 98.1 F Blood Pressure: 92/56 Pulse: 37 Respirations: 26 Pulse Ox (%): 100 - Physical Exam General: Alert, In no apparent distress, Oriented x3 Neck: Supple Respiratory: Clear to auscultation bilaterally Cardiovascular: No edema, Regular rate/rhythm, Normal S1 S2 Gastrointestinal: Normal bowel sounds - Studies Laboratory Data (last 24 hrs) 05/03/22 13:17: WBC 7.80, Hgb 8.3 L, Hct 25.5 L, Plt Count 311 05/03/22 13:17: Sodium 129 L, Potassium 4.4, BUN 31 H, Creatinine 0.95, Glucose 89 Assessment And Plan - Current Problems (Diagnosis) (1) Hypotension Current Visit: No Status: Resolved Plan: Pretension appears to have resolved Qualifiers: Hypotension type: hypotension due to drug Qualified Code(s): I95.2 - Hypotension due to drugs (2) Microcytic anemia Current Visit: Yes Status: Acute Plan: Her microcytic anemia has steadily worsened check iron levels (3) Bradycardia Current Visit: Yes Status: Acute Plan: According to the [facility] patient has a second-degree heart block type I cardiology consult pending (4) SARS-CoV-2 positive Current Visit: Yes Status: Acute Plan: Patient is also tested positive for COVID [place] any respiratory symptoms saturation normal on room air (5) Iron deficiency anemia Current Visit: Yes Status: Acute Plan: On IV iron she will probably need an outpatient work-up Qualifiers: Iron deficiency anemia type: unspecified iron deficiency Qualified Code(s): D50.9 - Iron deficiency anemia, unspecified
[2022-05-04] MEDS: SOD FERRIC GLUC COMPLX/SUCROSE 250 MG in NA CHLORIDE 0.9% 250 ML IV SCH (11:12)
[2022-05-04] MEDS: levETIRAcetam 500 MG TAB PO SCH (22:03)
[2022-05-05 04:01] LABS: Hematocrit 25.2 % (36.0-45.0); MPV 8.5 fL (7.6-11.3); Potassium 3.7 mmol/L (3.5-5.1); RBC Red Blood Cell Count 3.23 M/uL (3.86-4.86)
[2022-05-05] MEDS ORDERED: cloNIDine HCL 0.1 MG TAB PO PRN (08:25)
--- NOTE | 2022-05-05 08:32 | P.DS ---
Admission Date: 05/03/22 Discharge Date: 05/05/22 Disposition: DC HOME/HOME HEALTH CARE Discharge Condition: FAIR Reason for Admission: Coronavirus positive bradycardia hypotension - Problems (1) Hypotension Current Visit: No Status: Resolved Qualifiers: Hypotension type: hypotension due to drug Qualified Code(s): I95.2 - Hypotension due to drugs (2) Microcytic anemia Current Visit: Yes Status: Acute (3) Bradycardia Current Visit: Yes Status: Acute (4) SARS-CoV-2 positive Current Visit: Yes Status: Acute (5) Iron deficiency anemia Current Visit: Yes Status: Acute Qualifiers: Iron deficiency anemia type: unspecified iron deficiency Qualified Code(s): D50.9 - Iron deficiency anemia, unspecified Brief History of Present Illness: Patient is 86 years of age admitted from the emergency room with progressive weakness and shortness of breath the past worse over the past 6 weeks blood pressure medication has been reduced patient has been confined to a wheelchair admitted with severe hypotension and low pulse denies any fever chills just recent mild diarrhea feeling very weak no fever chills found to have a blood pressure of 80/50 with a heart rate of 34 degree block on EKG atropine was given in the field and Hospital Course: Patient is 86 years of age admitted with bradycardia hypotension presumed secondary side effect of sotalol that was discontinued she did well incidentally was diagnosed to have coronavirus positive no respiratory or GI complaints time of discharge patient was alert responsive cooperative eating and drinking no new complaints sedation vital signs all stable heart rate about 50 cussed with the workgroup leader stopped the sotalol patient has mild iron deficiency anemia to follow-up with Dr. Toney Vital Signs/Physical Exam: Temp Pulse Resp BP Pulse Ox 98.1 F 36 L 16 108/62 92 05/05/22 08:11 05/05/22 08:28 05/05/22 08:28 05/05/22 08:28 05/05/22 04:00 Laboratory Data at Discharge: WBC 7.90 K/uL (4.3-10.9) 05/05/22 03:11 Hgb 8.3 g/dL (12.0-15.0) L 05/05/22 03:11 Hct 25.2 % (36.0-45.0) L 05/05/22 03:11 Plt Count 281 K/uL (152-406) 05/05/22 03:11 Sodium 130 mmol/L (136-145) L 05/05/22 03:11 Potassium 3.7 mmol/L (3.5-5.1) 05/05/22 03:11 BUN 19 mg/dL (7-18) H 05/05/22 03:11 Creatinine 0.80 mg/dL (0.55-1.3) 05/05/22 03:11 Glucose 85 mg/dL (74-106) 05/05/22 03:11 Total Bilirubin 0.3 mg/dL (0.2-1.0) 05/04/22 05:50 AST 26 U/L (15-37) 05/04/22 05:50 ALT 22 U/L (12-78) 05/04/22 05:50 Alkaline Phosphatase 112 U/L (45-117) 05/04/22 05:50 Home Medications: Acetaminophen 500 mg PO Q6H PRN 05/04/22 Aspirin [Aspirin EC] 81 mg PO DAILY 05/04/22 Biotin 5 mg PO DAILY 05/04/22 Calcium Carb, Citrate/Vit D3 [Citracal-D3 ER 600 mg-500 Unit] 2 tab PO BID 05/04/22 Famotidine 20 mg PO DAILY 05/04/22 Furosemide 20 mg PO DAILY 05/04/22 Galantamine HBr [Galantamine ER] 4 mg PO BID 05/04/22 Glucos Sul 2Kcl/MSM/Chond/C/Mn [Glucosamine Chondroitin Cap] 1 cap PO BID 05/04/22 Glutathione 1,000 mg PO DAILY 05/04/22 Hydralazine [Apresoline*] 25 mg PO BID 05/04/22 LORazepam [Ativan*] 0.5 mg PO Q2H PRN 05/04/22 Levetiracetam [Keppra] 250 mg PO BID 05/04/22 Loperamide HCl [Anti-Diarrheal] 2 mg PO Q4H PRN 05/04/22 Memantine HCl 5 mg PO BID 05/04/22 Multivitamin [Daily Nicole] 1 tab PO DAILY 05/04/22 Ondansetron [Zofran (Odt)*] 4 mg PO Q4H PRN 05/04/22 Propylene Glycol/Peg 400/Pf [Systane 0.3-0.4% Eye Drop] 1 gtt OPTH BID 05/04/22 Propylene Glycol/Peg 400/Pf [Systane 0.3-0.4% Eye Drop] 1 gtt OPTH Q6H PRN 05/04/22 Sodium Chloride/Aloe Vera [Emelle Saline Nasal Gel] 1 appl IH BID PRN 05/04/22 Spironolactone 50 mg PO DAILY 05/04/22 Tamsulosin [Flomax*] 0.4 mg PO DAILY 05/04/22 Triamcinolone Acetonide 1 appl TOP Q12H PRN 05/04/22 Venlafaxine HCl [Venlafaxine HCl ER] 1 cap PO DAILY 05/04/22 Vit C/E/Zn/Coppr/Lutein/Zeaxan [Preservision Areds 2 Softgel] 2 cap PO DAILY 05/04/22 cloNIDine HCL [Clonidine HCl] 0.1 mg PO Q4H PRN 05/04/22 Physician Discharge Instructions: Patient to stop sotalol follow-up with and Victorina Followup: Jeremy Frost MD [Primary Care Provider] -
[2022-05-05] MEDS ORDERED: HOME MED 1 EA UNK (Spironolactone [Spironolactone] 50 MG Tablet) PO SCH (09:00)
[2022-05-05] MEDS ORDERED: ASPIRIN EC 81 MG TAB PO SCH (09:00)
[2022-05-05] MEDS ORDERED: HYDRALAZINE HCL 25 MG TABLET PO SCH (09:00)
[2022-05-05] MEDS ORDERED: TAMSULOSIN 0.4 MG SR CAP PO SCH (09:00)
[2022-05-05] MEDS ORDERED: FUROSEMIDE 20 MG TABLET PO SCH (09:00)
[2022-05-05] MEDS ORDERED: VENLAFAXINE HCL XR 75 MG CAP PO SCH (09:00)
[2022-05-05] MEDS: SOD FERRIC GLUC COMPLX/SUCROSE 250 MG in NA CHLORIDE 0.9% 250 ML IV SCH (09:30)
[2022-05-05] MEDS: levETIRAcetam 500 MG TAB PO SCH (09:32)
[2022-05-05 13:44] VITALS: BP 137/62; TEMP 97.2
[2022-05-05 14:42] VITALS: O2SAT 94
--- NOTE | 2022-05-05 15:59 | EKG ---
Test Date: 2022-05-03 Test Time: 13:02:02 Fireboat Operator: JAEMS MEASUREMENT RESULTS: Intervals: Rate: 37 FL: QRSD: 112 QT: 474 QTc: 372 Mitchell: P: 15 FL: QRS: -66 T: 68 INTERPRETIVE STATEMENTS: Sinus rhythm with complete heart block and Junctional bradycardia Incomplete right bundle branch block Left anterior fascicular block Left ventricular hypertrophy with repolarization abnormality Cannot rule out Septal infarct, age undetermined Abnormal ECG Compared to ECG 12/22/2021 00:38:10 AV block, complete (third-degree) now present Left ventricular hypertrophy now present Early repolarization now present Sinus bradycardia no longer present First degree AV block no longer present Myocardial infarct finding still present Electronically Signed On 05-05-22 15:55:54 CDT by Ashutosh Prajapati
[2022-05-06] MEDS ORDERED: SPIRONOLACTONE 25 MG TABLET PO SCH (09:00)
--- NOTE | 2022-05-06 10:10 | CON ---
Date of Consultation: 05/03/2022 Ms. Wharton is an 86-year-old who was admitted to Dr. Zhou on 05/03/2022. Reason For Consultation: Complete heart block and hypotension. History Of Present Illness: Ms. Wharton is 86 and has a history of hypertension, dementia, and atrial fibrillation. She came in with weakness and was found to have complete heart block. She was taking clonidine as needed as well as sotalol at home. By the time I saw her, those medicines had been held and she was back in sinus rhythm without any complaint. She denied chest pain. Denied syncope. De nied fever or chills. Denied nausea, vomiting, or diaphoresis. She denied PND, orthopnea, or pedal edema. Denied palpitations. Past Medical History: As stated earlier. Allergies: NONE. Review of Systems: Negative. Social History: Negative. Family History: Negative. Medications: At home include aspirin, Pepcid, sotalol, hydralazine, Keppra, Aldactone, clonidine p.r .n. Physical Examination: General: By the time I saw her, she was in sinus rhythm. No acute distress. Vital Signs: Stable, afebrile. HEENT: Negative. Neck: Supple with no bruit. Chest: Clear. Cardiac: Regular rhythm and rate with S4 gallops. Abdomen: Benign. Extremities: No clubbing, cyanosis, or edema. Diagnostic Data: Hemoglobin 8.3. Sodium is 130. She was COVID positive. 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 We will stop the clonidine a nd sotalol. She is in sinus rhythm. Continue aspirin. Continue hydralazine and Aldactone. We will decide on other blood pressure medication down the road, if her blood pressure is elevated. Watch h er overnight. Her atrial fibrillation has resolved. For now, her blood pressure is well controlled. Her dementia is stable. She is anemic and that needed to be addressed. Her sodium is 130, possibl y secondary to COVID. I would hydrate and observe her. Hold sotalol. Hold clonidine. Hopefully di scharge in the morning. NB/MODL Voice ID: [id number] Report ID: [id number]
--- NOTE | 2022-05-06 13:40 | PN ---
Date of Progress Note: 05/04/2022 Subjective: Ms. Wharton subjectively is feeling good. She has no complaint. Denied any shortness of breath, dizziness or lightheadedness or diaphoresis or nausea. Objectively, she is back in sinus rhy thm. Her complete heart block has resolved. Objective: Chest: Clear. Cardiac: Revealed normal rhythm. Abdomen: Benign. Extremities: Revealed no clubbing, cyanosis, or edema. Diagnostic Data: Hemoglobin 8.3. COVID positive. Sodium 130. Impression And Plan: Complete heart block related to sotalol and clonidine. We will discontinue tho se. We will continue her aspirin, hydralazine, and Aldactone. She can go home whenever it is okay w dana Zhou. I will see her in the office soon. I will obtain an event monitor and make furthe r decisions regarding the antiarrhythmics. WANDA/NORA Voice ID: [id number] Report ID: [id number]
== END 2022-05-05 13:45 | disposition home health service (06) ==
LOC: ER 12:52 → ERHOLD 15:22 → 4TH 22:23
PROVIDERS: ADMIT Internal Medicine Sleep Medicine; ATTEND Internal Medicine Sleep Medicine
DX: I95.2 Hypotension due to drugs (principal); I44.2 Atrioventricular block, complete; I50.30 Unspecified diastolic (congestive) heart failure; I48.91 Unspecified atrial fibrillation; D50.9 Iron deficiency anemia, unspecified; E87.1 Hypo-osmolality and hyponatremia; F03.90 Unspecified dementia, unspecified severity, without behavioral disturbance, psychotic disturbance, mood disturbance, and anxiety; R00.1 Bradycardia, unspecified; U07.1 COVID-19; T46.5X6A Underdosing of other antihypertensive drugs, initial encounter; Y92.009 Unspecified place in unspecified non-institutional (private) residence as the place of occurrence of the external cause; Z91.040 Latex allergy status; Z88.8 Allergy status to other drugs, medicaments and biological substances
CPT/HCPCS: 93005; 85025 ×2; 80048 ×2; 36415 ×2; 84443; 85027; 84484; 82728; 83540; 80053; 84466; 71045; 97116; 97161; 97530 ×2; 99285; 87811; J2916; J7050; J7030 ×2; G0378 ×2

== ENCOUNTER 2022-09-13 12:25 | Emergency (ER) | payer OTHER ==
--- OUTSIDE RECORDS SUMMARY | 2022-09-13 12:28 | XMS REPORT | Continuity of Care Document ---
:1935 Author Organization [facility] t Address [address] [place] [address] Care Team Providers Name Role Phone Santosh Jeremy Attending Clinician Unavailable Problems Condition Condition Condition Status Onset Resolution Last Treating Co mments Source Name Details Category Date Date Treatment Clinician Date [id number] Anterior Problem Active Comm on dislocatio [facility] Allergies, Adverse Reactions, Alerts Allergy Allergy Status Severity Reaction(s) Onset Inactive Treating Comm ents Source Name Type Date Date Clinician 8091 Drug Active Unknown Common allergy [facility] Social History Social Habit Start Date Stop Date Quantity Comments Source History of Tobacco Use Co mmon [facility] Sex Assigned At Com mon [facility] Smoking Status Start Date Stop Date Source Never Smoker [facility] Medications Ordered Filled Start Stop Current Ordering Indication Dosage Frequency Signature Comments Components Source Medication Medication Date Date Medication? Clinician (SIG) Name Name Hydralazine Hydralazine No Hydralazin -HCTZ -HCTZ e-HCTZ levETIRAcet levETIRAcet No levETIRAce am am bailon ASA-APAP-Ca ASA-APAP-Ca No ASA-APAP-C ff Buffered ff Buffered aff Buffered Sotalol HCl Sotalol HCl No Sotalol HCl Potassium Potassium No Potassium Ondansetron Ondansetron No Ondansetro n Memantine Memantine No Memantine HCl HCl HCl Morphine Morphine No Morphine Sulfate ER Sulfate ER Sulfate ER Biotin Biotin No Biotin LORazepam LORazepam No LORazepam Vitamin C Vitamin C No Vitamin C Bisacodyl Bisacodyl No Bisacodyl Atropine-Ca Atropine-Ca No Atropine-C re re are Venlafaxine Venlafaxine No Venlafaxin HCl HCl e HCl cloNIDine cloNIDine No cloNIDine Galantamine Galantamine No Galantamin Hydrobromid Hydrobromid e e e Hydrobromi de Acetaminoph Acetaminoph No Acetaminop en en hen Tamsulosin Tamsulosin No Tamsulosin HCl HCl HCl Furosemide Furosemide No Furosemide Potassium Potassium No Potassium Acetaminoph Acetaminoph No Acetaminop en en hen levETIRAcet levETIRAcet No levETIRAce am am bailon cloNIDine cloNIDine No cloNIDine ASA-APAP-Ca ASA-APAP-Ca No ASA-APAP-C ff Buffered ff Buffered aff Buffered Galantamine Galantamine No Galantamin Hydrobromid Hydrobromid e e e Hydrobromi de LORazepam LORazepam No LORazepam Furosemide Furosemide No Furosemide Vitamin C Vitamin C No Vitamin C Venlafaxine Venlafaxine No Venlafaxin HCl HCl e HCl Atropine-Ca Atropine-Ca No Atropine-C re re are Ondansetron Ondansetron No Ondansetro n Sotalol HCl Sotalol HCl No Sotalol HCl Biotin Biotin No Biotin Tamsulosin Tamsulosin No Tamsulosin HCl HCl HCl Morphine Morphine No Morphine Sulfate ER Sulfate ER Sulfate ER Hydralazine Hydralazine No Hydralazin -HCTZ -HCTZ e-HCTZ Bisacodyl Bisacodyl No Bisacodyl Memantine Memantine No Memantine HCl HCl HCl Bisacodyl Bisacodyl No Bisacodyl Sotalol HCl Sotalol HCl No Sotalol HCl Venlafaxine Venlafaxine No Venlafaxin HCl HCl e HCl Morphine Morphine No Morphine Sulfate ER Sulfate ER Sulfate ER Galantamine Galantamine No Galantamin Hydrobromid Hydrobromid e e e Hydrobromi de Potassium Potassium No Potassium Furosemide Furosemide No Furosemide LORazepam LORazepam No LORazepam levETIRAcet levETIRAcet No levETIRAce am am bailon Vitamin C Vitamin C No Vitamin C Ondansetron Ondansetron No Ondansetro n Biotin Biotin No Biotin ASA-APAP-Ca ASA-APAP-Ca No ASA-APAP-C ff Buffered ff Buffered aff Buffered Tamsulosin Tamsulosin No Tamsulosin HCl HCl HCl Acetaminoph Acetaminoph No Acetaminop en en hen Atropine-Ca Atropine-Ca No Atropine-C re re are Hydralazine Hydralazine No Hydralazin -HCTZ -HCTZ e-HCTZ Memantine Memantine No Memantine HCl HCl HCl cloNIDine cloNIDine No cloNIDine Vital Signs Vital Name Observation Time Observation Value Comments Source height 2022-04-17 13:30:00 60 [in_i] [facility] weight 2022-04-17 13:30:00 141.4 [lb_av] [facility] temperature 2022-04-17 13:30:00 97.4 [degF] [facility] bmi 2022-04-17 13:30:00 27.61 kg/m2 [facility] blood pressure 2022-04-17 13:30:00 139 mm[Hg] [facility] blood pressure 2022-04-17 13:30:00 60 mm[Hg] [facility] diastolic [facility] height 2022-03-18 13:30:00 60 [in_i] Common [facility] weight 2022-03-18 13:30:00 140 [lb_av] [facility] 2022-03-18 13:30:00 27.34 kg/m2 [facility] - [facility] blood pressure 2022-03-18 13:30:00 130 mm[Hg] [facility] systolic [facility] blood pressure 2022-03-18 13:30:00 78 mm[Hg] [facility] diastolic [facility] height 2022-02-25 15:30:00 60 [in_i] [facility] weight 2022-02-25 15:30:00 140 [lb_av] [facility] bmi 2022-02-25 15:30:00 27.34 kg/m2 Common S pirit [facility] blood pressure 2022-02-25 15:30:00 128 mm[Hg] [facility] blood pressure 2022-02-25 15:30:00 74 mm[Hg] [facility] diastolic [facility] Procedures This patient has no known procedures. Encounters Start End Encounter Admission Attending Care Care Encounter Source Date/Time Date/Time Type Type Clinicians Facility Department ID 2022-03-18 Outpatient J CARLOS Frost [facility] [id number] Common 13:21:02 Jeremy [facility] 2022-02-25 Outpatient Santosh STYOSSI STLMLC [id number] Common 14:49:02 Jeremy [facility] 2022-04-17 2022-04-17 OFFICE [facility] [id number] Co mmon 00:00:00 00:00:00 VISIT EST Spir [facility] PT LEVEL [address] [place] [address] 2022-03-18 2022-03-18 OFFICE [facility] [id number] Co mmon 00:00:00 00:00:00 VISIT EST Spir it PT LEVEL [address] [place] [address] 2022-02-25 2022-02-25 OFFICE [facility] ST[facility] [id number] Co mmon 00:00:00 00:00:00 VISIT NEW Spir it PT LEVEL [address] [place] [address] Results This patient has no known results.
[2022-09-13] MEDS ORDERED: ATROPINE SULF 1 MG/10 ML SYR IV ONE (13:34)
--- NOTE | 2022-09-13 13:37 | RAD REPORT ---
EXAM DESCRIPTION: RAD - Chest Single View - 09/13/2022 1:28 pm CLINICAL HISTORY: bradycardia COMPARISON: Chest Single View dated 05/03/2022; Chest Pa And Lat (2 Views) dated 03/21/2022; Chest Sing le View dated 02/23/2022; Chest Single View dated 12/22/2021; Chest Pa And Lat (2 Views) dated 07/25/2021 FINDINGS: Lines: None. Lungs: Similar prominence of the pulmonary interstitium. Pleural: No significant pleural effusions or pneumothorax. Cardiac: Similar mild cardiomegaly. Mediastinum: Within normal limits. Bones: No acute fractures. Other: None IMPRESSION: Similar aeration of the lungs with possible vascular congestion but no evidence of alveo lar edema or consolidation.
[2022-09-13 14:18] LABS: SARS-CoV-2 Antigen Rapid Res Negative (Negative)
[2022-09-13 14:24] LABS: Hematocrit 28.2 % (36.0-45.0); MCV 80.1 fL (80-100); RBC Red Blood Cell Count 3.52 M/uL (3.86-4.86)
[2022-09-13 14:41] LABS: Albumin 3.1 g/dL (3.4-5.0); Bilirubin Total 0.2 mg/dL (0.2-1.0); Magnesium 2.2 mg/dL (1.6-2.4); Potassium 4.6 mmol/L (3.5-5.1); Protein, Total 8.1 g/dL (6.4-8.2); Thyroid Stimulating Hormone 3.38 uIU/mL (0.358-3.740); Troponin High Sensitivity 36.9 pg/mL (<58.9)
--- NOTE | 2022-09-13 15:37 | EDPHYS ---
Physician Documentation [facility] Name: Larissa Wharton Age: 86 yrs Sex: Female : 1935 Arrival Date: 09/13/2022 Time: 12:36 Bed 18 Private MD: ED Physician Keith Mcwilliams HPI: 09/13 14:41 This 86 yrs old Female presents to ER via EMS with complaints of bradycardia. rt 14:41 Patient presents to the ED with bradycardia. At her snf, when they checked her rt blood pressure, they noted that her pulse was in the 30s. The patient states that she has no chest pain, that she has dyspnea with exertion as her only symptom. Denies lightheadedness, other acute complaints. Symptoms are severe in severity, no other aggravating or alleviating factors.. Historical: - Allergies: 13:15 Cephalexin; eh3 13:15 Dilantin; eh3 13:15 Latex, Natural Rubber; eh3 13:15 Phenytoin; eh3 - Home Meds: 13:15 aspirin 81 mg Oral TbEC 1 tab once daily [Active]; Citracal Oral daily [Active]; eh3 clonidine HCl 0.1 mg Oral tab as needed [Active]; hydralazine 25 mg Oral tab 1 tab 2 times per day [Active]; methyldopa 250 mg Oral tab 1 tab 2 times per day [Active]; oxybutynin chloride 5 mg Oral tab 1 tab 2 times per day [Active]; PreserVision AREDS Oral twice a day [Active]; 22:17 famotidine 20 mg Oral tab 1 tab once daily [Active]; furosemide 20 mg Oral tab 1 tab eh3 once daily [Active]; galantamine 4 mg oral tab 1 tab 2 times per day [Active]; Glutathione 500 mg 2 cap daily [Active]; Keppra 250 mg Oral tab 1 tabs 2 times per day [Active]; memantine 5 mg oral tab 1 tab 2 times per day [Active]; - PMHx: 13:15 a fib; Dementia; Hypertensive disorder; eh3 - Immunization history:: Adult Immunizations up to date. - Social history:: Smoking status: Patient denies any tobacco usage or history of. Patient/guardian denies using alcohol. - Family history:: not pertinent. ROS: 14:41 Constitutional: Negative for fever, chills, and weight loss, Eyes: Negative for injury, rt pain, redness, and discharge, Abdomen/GI: Negative for abdominal pain, nausea, vomiting, diarrhea, and constipation, MS/Extremity: Negative for injury and deformity, Skin: Negative for injury, rash, and discoloration, Neuro: Negative for headache, weakness, numbness, tingling, and seizure, Psych: Negative for depression, anxiety, suicide ideation, homicidal ideation, and hallucinations. 14:41 Cardiovascular: Positive for Bradycardia, negative for chest pain. 14:41 Respiratory: Positive for dyspnea on exertion, Negative for cough. Exam: 14:41 Constitutional: This is a well developed, well nourished patient who is awake, alert, rt and in no acute distress. Head/Face: Normocephalic, atraumatic. Neck: Trachea midline, no thyromegaly or masses palpated, and no cervical lymphadenopathy. Supple, full range of motion without nuchal rigidity, or vertebral point tenderness. No Meningismus. Chest/axilla: Normal chest wall appearance and motion. Nontender with no deformity. No lesions are appreciated. Respiratory: Lungs have equal breath sounds bilaterally, clear to auscultation and percussion. No rales, rhonchi or wheezes noted. No increased work of breathing, no retractions or nasal flaring. Abdomen/GI: Soft, non-tender, with normal bowel sounds. No distension or tympany. No guarding or rebound. No evidence of tenderness throughout. Skin: Warm, dry with normal turgor. Normal color with no rashes, no lesions, and no evidence of cellulitis. MS/ Extremity: Pulses equal, no cyanosis. Neurovascular intact. Full, normal range of motion. Neuro: Awake and alert, GCS 15, oriented to person, place, time, and situation. Cranial nerves II-XII grossly intact. Motor strength 5/5 in all extremities. Sensory grossly intact. Cerebellar exam normal. Normal gait. Psych: Awake, alert, with orientation to person, place and time. Behavior, mood, and affect are within normal limits. 14:41 Cardiovascular: Bradycardic, regular rhythm, heart sounds normal. 14:41 ECG was reviewed by the Attending Physician. Vital Signs: 12:51 BP 151 / 47; Pulse 41; Resp 14; Temp 98.2(O); Pulse Ox 96% on R/A; Weight 68.95 kg; eh3 Height 4 ft. 11 in. (149.86 cm); 13:00 BP 149 / 64; Pulse 43; Resp 15; Pulse Ox 96% on R/A; eh3 13:15 BP 169 / 67; Pulse 43; Resp 10; Pulse Ox 99% on R/A; eh3 13:30 BP 124 / 54; Pulse 37; Resp 20; Pulse Ox 95% on R/A; eh3 14:30 BP 130 / 61; Pulse 37; Resp 11; Pulse Ox 95% on R/A; eh3 15:30 BP 138 / 49; Pulse 42; Resp 14; Pulse Ox 98% on R/A; eh3 16:30 BP 120 / 48; Pulse 43; Resp 20; Pulse Ox 97% on R/A; eh3 17:30 BP 125 / 34; Pulse 43; Resp 16; Pulse Ox 96% on R/A; eh3 18:30 BP 116 / 39; Pulse 43; Resp 17; Pulse Ox 96% on R/A; eh3 19:30 BP 108 / 42; Pulse 42; Resp 18; Pulse Ox 99% on R/A; eh3 20:00 BP 127 / 43; Pulse 42; Resp 20; Pulse Ox 99% on R/A; eh3 20:30 BP 122 / 46; Pulse 41; Resp 18; Pulse Ox 98% on R/A; eh3 21:00 BP 131 / 41; Pulse 43; Resp 19; Pulse Ox 97% on R/A; eh3 22:00 BP 146 / 39; Pulse 41; Resp 14; Pulse Ox 97% on R/A; eh3 23:00 BP 122 / 39; Pulse 41; Resp 14; Pulse Ox 97% on R/A; eh3 12:51 Body Mass Index 30.70 (68.95 kg, 149.86 cm) eh3 MDM: 12:43 Patient medically screened. rt 16:15 Differential diagnosis: Third-degree heart block, medication reaction. Data reviewed: rt vital signs, nurses notes, lab test result(s), EKG, radiologic studies. Management of patient was discussed with the following: Supervisor Cabinetmaker: [employer] at [facility], recommends ICU admission. I considered the following discharge prescriptions or medication management in the emergency department Medications were administered in the Emergency Department. See MAR. Independent interpretation of the following test(s) in the Emergency Department X-Ray: My interpretation is No infiltrates. Historians other than the Patient: Daughter/Son: Discussed plan of care, patient reportedly has been told she needed a pacemaker before.. Care significantly affected by the following chronic conditions: Congestive Heart Failure. Counseling: I had a detailed discussion with the patient and/or guardian regarding: the need to transfer to another facility, for higher level of care. Response to treatment: There is no appreciated change of the patient's symptoms at this time. 21:56 ED course: Doc to doc with Dr Mora completed and she accepts patient to the ED.. ms3 09/13 12:45 Order name: CBC with Diff; Complete Time: 14:46 rt 09/13 12:45 Order name: CMP; Complete Time: 14:46 rt 09/13 12:45 Order name: Magnesium; Complete Time: 14:46 rt 09/13 12:45 Order name: Troponin High Sensitivity; Complete Time: 14:46 rt 09/13 12:45 Order name: BNP; Complete Time: 14:46 rt 09/13 12:45 Order name: TSH; Complete Time: 14:46 rt 09/13 12:45 Order name: EKG; Complete Time: 12:46 rt 09/13 12:45 Order name: EKG - Nurse/Tech; Complete Time: 13:01 rt 09/13 12:45 Order name: Chest Single View XRAY; Complete Time: 13:52 rt 09/13 13:28 Order name: SARS RAPID; Complete Time: 14:46 rt EC:41 Rate is 41 beats/min. Rhythm is regular, 3rd degree block. Left axis deviation noted. rt QRS interval is normal. QT interval is normal. No Q waves. Interpreted by me. Administered Medications: 13:30 Drug: Atropine 1 mg Route: IVP; Site: left wrist; eh3 14:30 Follow up: Response: No adverse reaction eh3 20:15 Drug: NS 0.9% 500 ml Route: IV; Rate: 1000 ml; Site: left antecubital; eh3 22:14 Follow up: IV Status: Completed infusion; IV Intake: 500ml eh3 Disposition: 16:15 Critical Care:. rt Disposition Summary: 09/13/22 15:36 Transfer Ordered Transfer Location: [facility] rt Reason: Higher level of care rt Condition: Serious rt Problem: new rt Symptoms: are unchanged rt Accepting Physician: Dr. De Leon(09/13/22 23:46) [facility] Diagnosis - Third-degree heart block rt Forms: - Medication Reconciliation Form rt - SBAR form rt Critical care time excluding procedures: 16:15 Critical care time: Bedside Care: 30 minutes, Consultation: 10 minutes. Total time: 40 rt minutes Signatures: Dispatcher [employer] EDAK Tevin Lei DO DO ms3 Julissa Orr RN RN 3 Keith Mcwilliams MD MD rt Corrections: (The following items were deleted from the chart) 22:35 13:15 Home Meds: amlodipine 2.5 mg tab 1 tab once daily; [place] [address] 22:35 13:15 Home Meds: Edarbyclor 40-12.5 mg Oral tab twice a day; [place] [address] 22:35 13:15 Home Meds: glutamine Oral; [place] [address] 22:35 13:15 Home Meds: phenobarbital 64.8 mg Oral tab 1 tab once daily; [place] [address] 23:46 15:36 Dr. De Leon rt 3
--- NOTE | 2022-09-13 15:37 | ER ---
Nurse's Notes [facility] Name: Larissa Wharton Age: 86 yrs Sex: Female : 1935 Arrival Date: 09/13/2022 Time: 12:36 Bed 18 Private MD: Diagnosis: Third-degree heart block Presentation: 09/13 12:51 Chief complaint: EMS states: HR of 38, EMS EKG showed 1st degree heart block with [place] of eh3 311. Coronavirus screen: Vaccine status: Patient reports receiving the 2nd dose of the covid vaccine. Ebola Screen: No symptoms or risks identified at this time. Initial Sepsis Screen: Does the patient meet any 2 criteria? No. Patient's initial sepsis screen is negative. Does the patient have a suspected source of infection? No. Patient's initial sepsis screen is negative. Risk Assessment: Do you want to hurt yourself or someone else? Patient reports no desire to harm self or others. Onset of symptoms was September 13, 2022. 12:51 Method Of Arrival: EMS: [facility] eh3 12:51 Acuity: SHELDON 2 eh3 12:51 Care prior to arrival: Medication(s) given: Normal saline infusion, 100 mL , Atropine eh3 0.5mg 2x. Triage Assessment: 12:51 General: Appears in no apparent distress. comfortable, Behavior is calm, cooperative, eh3 appropriate for age. Pain: Denies pain. EENT: No signs and/or symptoms were reported regarding the EENT system. Neuro: Level of Consciousness is awake, alert, obeys commands, Oriented to person, place, time, situation. Cardiovascular: Capillary refill < 3 seconds Patient's skin is warm and dry. Respiratory: Airway is patent Respiratory effort is even, unlabored, Respiratory pattern is regular, symmetrical. GI: No signs and/or symptoms were reported involving the gastrointestinal system. Abdomen is round non-distended. : No signs and/or symptoms were reported regarding the genitourinary system. Derm: No signs and/or symptoms reported regarding the dermatologic system. Skin is pink, warm \T\ dry. Musculoskeletal: No signs and/or symptoms reported regarding the musculoskeletal system. Circulation, motion, and sensation intact. Historical: - Allergies: 13:15 Cephalexin; eh3 13:15 Dilantin; eh3 13:15 Latex, Natural Rubber; eh3 13:15 Phenytoin; eh3 - Home Meds: 13:15 aspirin 81 mg Oral TbEC 1 tab once daily [Active]; Citracal Oral daily [Active]; eh3 clonidine HCl 0.1 mg Oral tab as needed [Active]; hydralazine 25 mg Oral tab 1 tab 2 times per day [Active]; methyldopa 250 mg Oral tab 1 tab 2 times per day [Active]; oxybutynin chloride 5 mg Oral tab 1 tab 2 times per day [Active]; PreserVision AREDS Oral twice a day [Active]; 22:17 famotidine 20 mg Oral tab 1 tab once daily [Active]; furosemide 20 mg Oral tab 1 tab eh3 once daily [Active]; galantamine 4 mg oral tab 1 tab 2 times per day [Active]; Glutathione 500 mg 2 cap daily [Active]; Keppra 250 mg Oral tab 1 tabs 2 times per day [Active]; memantine 5 mg oral tab 1 tab 2 times per day [Active]; - PMHx: 13:15 a fib; Dementia; Hypertensive disorder; eh3 - Immunization history:: Adult Immunizations up to date. - Social history:: Smoking status: Patient denies any tobacco usage or history of. Patient/guardian denies using alcohol. - Family history:: not pertinent. Screenin:51 [facility] ED Fall Risk Assessment (Adult) History of falling in the last 3 months, 3 including since admission No falls in past 3 months (0 pts) Confusion or Disorientation No (0 pts) Intoxicated or Sedated No (0 pts) Impaired Gait No (0 pts) Mobility Assist Device Used Yes (1 pt) Altered Elimination Yes (1 pt) Score/Fall Risk Level 0 - 2 = Low Risk. Abuse screen: Denies threats or abuse. Denies injuries from another. Nutritional screening: No deficits noted. Tuberculosis screening: No symptoms or risk factors identified. Assessment: 12:51 Reassessment: No changes from previously documented assessment. See triage assessment. [facility] 13:43 Reassessment: Patient appears in no apparent distress at this time. Patient and/or 3 family updated on plan of care and expected duration. Pain level reassessed. Patient is alert, oriented x 3, equal unlabored respirations, skin warm/dry/pink. 14:30 Reassessment: Patient appears in no apparent distress at this time. Patient and/or eh3 family updated on plan of care and expected duration. Pain level reassessed. Patient is alert, oriented x 3, equal unlabored respirations, skin warm/dry/pink. 15:30 Reassessment: Patient appears in no apparent distress at this time. Patient and/or eh3 family updated on plan of care and expected duration. Pain level reassessed. Patient is alert, oriented x 3, equal unlabored respirations, skin warm/dry/pink. 16:30 Reassessment: Patient appears in no apparent distress at this time. Patient and/or eh3 family updated on plan of care and expected duration. Pain level reassessed. Patient is alert, oriented x 3, equal unlabored respirations, skin warm/dry/pink. 17:30 Reassessment: Patient appears in no apparent distress at this time. Patient and/or eh3 family updated on plan of care and expected duration. Pain level reassessed. Patient is alert, oriented x 3, equal unlabored respirations, skin warm/dry/pink. 18:30 Reassessment: Patient appears in no apparent distress at this time. Patient and/or eh3 family updated on plan of care and expected duration. Pain level reassessed. Patient is alert, oriented x 3, equal unlabored respirations, skin warm/dry/pink. 19:30 Reassessment: Patient appears in no apparent distress at this time. Patient and/or eh3 family updated on plan of care and expected duration. Pain level reassessed. Patient is alert, oriented x 3, equal unlabored respirations, skin warm/dry/pink. 20:30 Reassessment: Patient appears in no apparent distress at this time. Patient and/or eh3 family updated on plan of care and expected duration. Pain level reassessed. Patient is alert, oriented x 3, equal unlabored respirations, skin warm/dry/pink. 21:00 Reassessment: Patient appears in no apparent distress at this time. Patient and/or eh3 family updated on plan of care and expected duration. Pain level reassessed. Patient is alert, oriented x 3, equal unlabored respirations, skin warm/dry/pink. 22:00 Reassessment: Patient appears in no apparent distress at this time. Patient and/or eh3 family updated on plan of care and expected duration. Pain level reassessed. Patient is alert, oriented x 3, equal unlabored respirations, skin warm/dry/pink. 22:40 Reassessment: CONTACT daughter/medical POA when pt is transferred Neyda Noel [facility] [phone]. 22:50 Reassessment: Nurse to nurse report given to TITO Owusu at [address] emergency dept[address] 23:00 Reassessment: Patient appears in no apparent distress at this time. Patient and/or [facility] family updated on plan of care and expected duration. Pain level reassessed. Patient is alert, oriented x 3, equal unlabored respirations, skin warm/dry/pink. Vital Signs: 12:51 BP 151 / 47; Pulse 41; Resp 14; Temp 98.2(O); Pulse Ox 96% on R/A; Weight 68.95 kg; [facility] Height 4 ft. 11 in. (149.86 cm); 13:00 BP 149 / 64; Pulse 43; Resp 15; Pulse Ox 96% on R/A; 3 13:15 BP 169 / 67; Pulse 43; Resp 10; Pulse Ox 99% on R/A; 3 13:30 BP 124 / 54; Pulse 37; Resp 20; Pulse Ox 95% on R/A; 3 14:30 BP 130 / 61; Pulse 37; Resp 11; Pulse Ox 95% on R/A; 3 15:30 BP 138 / 49; Pulse 42; Resp 14; Pulse Ox 98% on R/A; 3 16:30 BP 120 / 48; Pulse 43; Resp 20; Pulse Ox 97% on R/A; 3 17:30 BP 125 / 34; Pulse 43; Resp 16; Pulse Ox 96% on R/A; eh3 18:30 BP 116 / 39; Pulse 43; Resp 17; Pulse Ox 96% on R/A; 3 19:30 BP 108 / 42; Pulse 42; Resp 18; Pulse Ox 99% on R/A; eh3 20:00 BP 127 / 43; Pulse 42; Resp 20; Pulse Ox 99% on R/A; eh3 20:30 BP 122 / 46; Pulse 41; Resp 18; Pulse Ox 98% on R/A; 3 21:00 BP 131 / 41; Pulse 43; Resp 19; Pulse Ox 97% on R/A; eh3 22:00 BP 146 / 39; Pulse 41; Resp 14; Pulse Ox 97% on R/A; eh3 23:00 BP 122 / 39; Pulse 41; Resp 14; Pulse Ox 97% on R/A; eh3 12:51 Body Mass Index 30.70 (68.95 kg, 149.86 cm) eh3 Vitals: 13:00 Cardiac Rhythm Assessment Sinus yakelin. eh3 ED Course: 12:36 Patient arrived in ED. eb 12:37 Keith Mcwilliams MD is Attending Physician. rt 12:42 Julissa Orr, TITO is Primary Nurse. eh3 12:51 Arm band placed on. eh3 12:51 Patient has correct armband on for positive identification. Bed in low position. Call 3 light in reach. Side rails up X2. Adult w/ patient. Client placed on continuous cardiac and pulse oximetry monitoring. NIBP monitoring applied. Door closed. Noise minimized. Warm blanket given. 12:51 Maintain EMS IV. Dressing intact. Good blood return noted. Site clean \T\ dry. Gauge \T\ eh 3 site: 20g RAC. 13:15 Triage completed. eh3 13:30 Chest Single View XRAY In Process Unspecified. EDMS 14:09 Initial lab(s) drawn, by me, sent to lab. Inserted saline lock: 20 gauge in left bc6 antecubital area, using aseptic technique. 14:58 initiated a transfer with Sia Huffman from the [facility] Transfer Center. eb 15:[address] De Leon the special tester oncology admin for [facility] with Dr. Mcwilliams for eb patient transfer consultation. 19:43 EB stated that [facility] accepted Pt and would call back as soon as they had an ICU bed wm available. I will call [facility] for an update at 2100 if not called back by then. 21:55 Pt accepted for transfer to [facility] ER by Abby Torres per Sofia Trammell. wm 23:45 No provider procedures requiring assistance completed. Patient transferred, IV remains eh3 in place. Administered Medications: 13:30 Drug: Atropine 1 mg Route: IVP; Site: left wrist; eh3 14:30 Follow up: Response: No adverse reaction eh3 20:15 Drug: NS 0.9% 500 ml Route: IV; Rate: 1000 ml; Site: left antecubital; eh3 22:14 Follow up: IV Status: Completed infusion; IV Intake: 500ml eh3 Medication: 23:45 VIS not applicable for this client. eh3 Intake: 22:14 IV: 500ml; Total: 500ml. eh3 Output: 15:22 Urine: 1100ml (Voided); Total: 1100ml. eh3 21:30 Urine: 650ml (Voided); Total: 1750ml. eh3 Outcome: 15:36 ER care complete, transfer ordered by MD. rt 23:45 Transferred by ground EMS to [facility], Transfer form completed. eh3 23:45 Condition: stable 23:45 Instructed on the need for transfer. 23:46 Patient left the ED. eh3 Signatures: Dispatcher [employer] EDMS Sia Moreland Wendy wm Hall, Erin, RN RN eh3 Keith Mcwilliams MD MD rt Lorene Russ 6 Corrections: (The following items were deleted from the chart) 16:32 15:21 BP 138 / 49; Pulse 42bpm; Resp 14bpm; Pulse Ox 98% RA; eh3 eh3 16:32 15:21 Reassessment: Patient appears in no apparent distress at this time. Patient eh3 and/or family updated on plan of care and expected duration. Pain level reassessed. Patient is alert, oriented x 3, equal unlabored respirations, skin warm/dry/pink. eh3 19:30 17:30 Reassessment: Patient appears in no apparent distress at this time. Patient eh3 and/or family updated on plan of care and expected duration. Pain level reassessed. Patient is alert/active/playful, equal unlabored respirations, skin warm/dry/pink. eh3 22:16 21:30 Reassessment: Patient appears in no apparent distress at this time. Patient eh3 and/or family updated on plan of care and expected duration. Pain level reassessed. Patient is alert, oriented x 3, equal unlabored respirations, skin warm/dry/pink. eh3 22:35 13:15 Home Meds: amlodipine 2.5 mg tab 1 tab once daily; eh3 eh3 22:35 13:15 Home Meds: Edarbyclor 40-12.5 mg Oral tab twice a day; eh3 eh3 :35 13:15 Home Meds: glutamine Oral; [facility]3 :35 13:15 Home Meds: phenobarbital 64.8 mg Oral tab 1 tab once daily; [facility]
[2022-09-13] MEDS ORDERED: NA CHLORIDE 0.9% 500 ML ONE (20:20)
[2022-09-14 00:35] VITALS: TEMP 98.2
[2022-09-14 00:49] VITALS: O2SAT 97
[2022-09-14 00:51] VITALS: BP 122/39
== END 2022-09-13 23:46 | disposition short-term general hospital (02) ==
LOC: ER 12:25
DX: I44.2 Atrioventricular block, complete (principal); I10 Essential (primary) hypertension; I48.91 Unspecified atrial fibrillation; F03.90 Unspecified dementia, unspecified severity, without behavioral disturbance, psychotic disturbance, mood disturbance, and anxiety; Z20.822 Contact with and (suspected) exposure to COVID-19; Z79.82 Long term (current) use of aspirin; Z88.1 Allergy status to other antibiotic agents; Z88.8 Allergy status to other drugs, medicaments and biological substances; Z91.040 Latex allergy status; Z91.048 Other nonmedicinal substance allergy status
CPT/HCPCS: 96361; 85025; 36415; 83735; 84443; 84484; 80053; 83880; 71045; 96374; 99285; 87811; J0461; J7040; 93005

== ENCOUNTER 2023-01-14 16:39 | Inpatient (IN) | payer OTHER ==
--- OUTSIDE RECORDS SUMMARY | 2023-01-14 17:30 | XMS REPORT | Continuity of Care Document ---
:1935 Author Organization [facility] t Address [address] [place] [address] [address] [place] [address] Care Team Providers Name Role Phone Jeremy Frost Attending Clinician Unavailable ARLENE VOSS Attending Clinician Unavailable JATINDER GREEN Attending Clinician Unavailable BORIS DAMICO Attending Clinician Unavailable STEPHANIE RAO Admitting Clinician Unavailable Payers Payer Name Policy Type Policy Number Effective Date Expiration Date S davece UNITED MEDICARE [id number] 2022 [facility] 00:00:00 Problems Condition Condition Condition Status Onset Resolution Last Treating Co mments Source Name Details Category Date Date Treatment Clinician Date [id number] 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 Allergies, Adverse Reactions, Alerts Allergy Allergy Status Severity Reaction(s) Onset Inactive Treating Comm ents Source Name Type Date Date Clinician CEPHALEX Allergy Active 0 [facility] IN 09-14 00:00: 00 PHENYTOI Allergy Active 0 [facility] N 09-14 00:00: 00 LATEX Allergy Active [facility] 09-14 00:00: 00 8091 Drug Active Unknown Common allergy [facility] Social History Social Habit Start Date Stop Date Quantity Comments Source History of Tobacco Use Co mmon [facility] Sex Assigned At Com mon [facility] Smoking Status Start Date Stop Date Source Never Smoker Common [facility] Medications Ordered Filled Start Stop Current [...] Name Observation Time Observation Value Comments Source HEIGHT 2022-10-01 11:29:00 149.9 cm WEIGHT 2022-10-01 11:29:00 73.936 kg HEIGHT 2022-10-01 11:29:00 149.9 cm WEIGHT 2022-10-01 11:29:00 73.936 kg WEIGHT 2022-09-25 05:35:00 67.586 kg WEIGHT 2022-09-19 05:00:00 73.1 kg WEIGHT 2022-09-18 06:00:00 71.8 kg WEIGHT 2022-09-17 05:40:00 71.1 kg WEIGHT 2022-09-16 05:00:00 73.5 kg WEIGHT 2022-09-15 04:30:00 73.5 kg WEIGHT 2022-09-14 04:00:00 75 kg HEIGHT 2022-09-14 01:03:00 149.9 cm WEIGHT 2022-09-14 01:03:00 68.04 kg WEIGHT 2022-09-25 05:35:00 67.586 kg WEIGHT 2022-09-19 05:00:00 73.1 kg WEIGHT 2022-09-18 06:00:00 71.8 kg WEIGHT 2022-09-17 05:40:00 71.1 kg WEIGHT 2022-09-16 05:00:00 73.5 kg WEIGHT 2022-09-15 04:30:00 73.5 kg WEIGHT 2022-09-14 04:00:00 75 kg HEIGHT 2022-09-14 01:03:00 149.9 cm WEIGHT 2022-09-14 01:03:00 68.04 kg blood pressure 2022-04-17 13:30:00 139 mm[Hg] [facility] blood pressure 2022-04-17 13:30:00 60 mm[Hg] [facility] diastolic [facility] height 2022-04-17 13:30:00 60 [in_i] [facility] weight 2022-04-17 13:30:00 141.4 [lb_av] [facility] temperature 2022-04-17 13:30:00 97.4 [degF] [facility] bmi 2022-04-17 13:30:00 27.61 kg/m2 [facility] height 2022-03-18 13:30:00 60 [in_i] [facility] weight 2022-03-18 13:30:00 140 [lb_av] [facility] bmi 2022-03-18 13:30:00 27.34 kg/m2 [facility] blood pressure 2022-03-18 13:30:00 130 mm[Hg] [facility] systolic [facility] blood pressure 2022-03-18 13:30:00 78 mm[Hg] [facility] diastolic [facility] height 2022-02-25 15:30:00 60 [in_i] [facility] weight 2022-02-25 15:30:00 140 [lb_av] [facility] bmi 2022-02-25 15:30:00 27.34 kg/m2 [facility] blood pressure 2022-02-25 15:30:00 128 mm[Hg] [facility] systolic [facility] blood pressure 2022-02-25 15:30:00 74 mm[Hg] [facility] diastolic [facility] Procedures This patient has no known procedures. Encounters Start End Encounter Admission Attending Care Care Encounter Source Date/Time Date/Time Type Type Clinicians Facility Department ID 2022-09-13 Inpatient ER [facility] Cardiology [id number] 15:18:50 [facility] 2022-03-18 Outpatient Santosh STYOSSI [facility] [id number] Common 13:21:02 Jeremy [facility] 2022-02-25 Outpatient Santosh [facility] STLC [id number] Common 14:49:02 Jeremy [id number] [facility] 2022-10-01 2022-10-01 Outpatient CJ [facility] [id number] SLE 11:24:26 11:24:26 ARLENE 2022-09-14 2022-09-27 Inpatient ER CJ GREEN Emergency [id number] SLE 00:53:00 10:23:00 AMER 2022-04-17 2022-04-17 OFFICE STLC STLC [id number] Co mmon 00:00:00 00:00:00 VISIT EST Spir it PT LEVEL [address] [place] [address] 2022-03-18 2022-03-18 OFFICE STLMLC STLMLC [id number] Co mmon 00:00:00 00:00:00 VISIT EST Spir it PT LEVEL [address] [place] [address] 2022-02-25 2022-02-25 OFFICE STLMLC STLMLC [id number] Co mmon 00:00:00 00:00:00 VISIT NEW Spir it PT LEVEL [address] [place] [address] Results Test Description Test Time Test Comments Results Result Comments Source B-TYPE NATRIURETIC FACTOR (BNP) 2022-10-01 14:55:11 Test Item Value Reference Range Interpretation Comme nts B-TYPE NATRIURETIC PEPTIDE (BEAKER) (test code = 700) 544 pg/mL 0-100 H Double Ending Machine Operator ID - [facility]OL[facility] [id number] 14:42:47 Test Item Value Reference Range Interpretation Comments SODIUM (BEAKER) 135 meq/L 136-145 L (test code = 381) POTASSIUM 4.1 meq/L 3.5-5.1 (BEAKER) (test code = 379) CHLORIDE (BEAKER) 105 meq/L 98-107 (test code = 382) CO2 (BEAKER) 23 meq/L 22-29 (test code = 355) BLOOD UREA 18 mg/dL 7-21 NITROGEN (BEAKER) (test code = 354) CREATININE 0.82 mg/dL 0.57-1.25 (BEAKER) (test code = 358) GLUCOSE RANDOM 79 mg/dL 70-105 (BEAKER) (test code = 652) CALCIUM (BEAKER) 8.9 mg/dL 8.4-10.2 (test code = 697) EGFR (BEAKER) 69 Interpretatio n of eGFR (test code = mL/min/1.73 values Stage De scription 1092) sq m Result G1 Margot l or high >=90 G2 Mildly decreased 60-89 G3a Mildl y to moderately 45-5 9 G3b Moderately to s everely 30-44 G4 Severl y decreased 15-29 G5 Kidney failure <15Reported eGF R is based on the CKD-EPI 2020 equation that d oes not use a race coefficientEsti mated GFR is not as accur ate as Creatinine Basilia acosta in predicting glom erular filtration rate . Estimated GFR is not appl icable for dialysis patien ts Double Ending Machine Operator ID - JANCBC W/PLT COUNT & AUTO [id number] 14:28:26 Test Item Value Reference Range Interpretation Comments WHITE BLOOD CELL COUNT (BEAKER) 8.6 K/ L 3.5-10.5 (test code = 775) RED BLOOD CELL COUNT (BEAKER) 3.19 M/ L 3.93-5.22 L (test code = 761) HEMOGLOBIN (BEAKER) (test code = 8.3 GM/DL 11.2-15.7 L 410) HEMATOCRIT (BEAKER) (test code = 26.8 % 34.1-44.9 L 411) MEAN CORPUSCULAR VOLUME (BEAKER) 84 fL 79-95 (test code = 753) MEAN CORPUSCULAR HEMOGLOBIN 26.0 pg 25.6-32.2 (BEAKER) (test code = 751) MEAN CORPUSCULAR HEMOGLOBIN CONC 31.0 GM/DL 32.2-35.5 L (BEAKER) (test code = 752) RED CELL DISTRIBUTION WIDTH 19.8 % 11.7-14.4 H (BEAKER) (test code = 412) PLATELET COUNT (BEAKER) (test 182 K/CU MM 150-450 code = 756) MEAN PLATELET VOLUME (BEAKER) 12.7 fL 9.4-12.3 H (test code = 754) NUCLEATED RED BLOOD CELLS 0 /100 WBC 0-0 (BEAKER) (test code = 413) NEUTROPHILS RELATIVE PERCENT 56 % (BEAKER) (test code = 429) LYMPHOCYTES RELATIVE PERCENT 27 % (BEAKER) (test code = 430) MONOCYTES RELATIVE PERCENT 11 % (BEAKER) (test code = 431) EOSINOPHILS RELATIVE PERCENT 5 % (BEAKER) (test code = 432) BASOPHILS RELATIVE PERCENT 1 % (BEAKER) (test code = 437) NEUTROPHILS ABSOLUTE COUNT 4.85 K/ L 1.56-6.13 (BEAKER) (test code = 670) LYMPHOCYTES ABSOLUTE COUNT 2.30 K/ L 1.18-3.74 (BEAKER) (test code = 414) MONOCYTES ABSOLUTE COUNT (BEAKER) 0.91 K/ L 0.24-0.36 H (test code = 415) EOSINOPHILS ABSOLUTE COUNT 0.39 K/ L 0.04-0.36 H (BEAKER) (test code = 416) BASOPHILS ABSOLUTE COUNT (BEAKER) 0.06 K/ L 0.01-0.08 (test code = 417) IMMATURE GRANULOCYTES-RELATIVE 1.30 % 0.00-1.00 H PERCENT (BEAKER) (test code = 2801) (CELLAVISION MANUAL DIFF)2022-09-27 06:52:53 Test Item Value Reference Range Interpretation Comments NEUTROPHILS - REL 82 % (CELLAVISION)(BEAKER) (test code = 2816) LYMPHOCYTES - REL 7 % (CELLAVISION)(BEAKER) (test code = 2817) MONOCYTES - REL 2 % (CELLAVISION)(BEAKER) (test code = 2818) EOSINOPHILS - REL 7 % (CELLAVISION)(BEAKER) (test code = 2819) BANDS - REL (CELLAVISION)(BEAKER) 2 % 0-10 (test code = 2826) NEUTROPHILS - ABS 12.79 K/ul 1.56-6.13 H (CELLAVISION)(BEAKER) (test code = 2830) LYMPHOCYTES - ABS 1.09 K/ul 1.18-3.74 L (CELLAVISION)(BEAKER) (test code = 2831) MONOCYTES - ABS 0.31 K/uL 0.24-0.36 (CELLAVISION)(BEAKER) (test code = 2832) EOSINOPHILS - ABS 1.09 K/uL 0.04-0.36 H (CELLAVISION)(BEAKER) (test code = 2834) BANDS - ABS (CELLAVISION)(BEAKER) 0.31 K/uL 0.00-0.80 (test code = 2840) TOTAL COUNTED (BEAKER) (test code 100 = 1351) WBC MORPHOLOGY (BEAKER) (test code Normal = 487) PLT MORPHOLOGY (BEAKER) (test code Normal = 486) POLYCHROMATOPHILLIC RBCS(BEAKER) 1+ few (test code = 478) HYPOCHROMIA (BEAKER) (test code = 1+ few 963) POIKILOCYTES (BEAKER) (test code = 1+ few 966) CARO CELLS (BEAKER) (test code = 1+ few 474) ARTIFACT (CELLAVISION)(BEAKER) Present (test code = 3432) HELMET CELLS (CELLAVISION)(BEAKER) 1+ few (test code = 3434) PLATELET CONCENTRATION Adequate (CELLAVISION)(BEAKER) (test code = 3438) Double Ending Machine Operator ID - Donita Bond comments: Slide comments:CBC W/PLT COUNT & AUTO [id number] 06:52:52 Test Item Value Reference Range Interpretation Comments WHITE BLOOD CELL COUNT 15.6 K/ L 3.5-10.5 H (BEAKER) (test code = 775) RED BLOOD CELL COUNT 3.09 M/ L 3.93-5.22 L (BEAKER) (test code = 761) HEMOGLOBIN (BEAKER) 8.0 GM/DL 11.2-15.7 L (test code = 410) HEMATOCRIT (BEAKER) 25.6 % 34.1-44.9 L (test code = 411) MEAN CORPUSCULAR 83 fL 79-95 Discordant results VOLUME (BEAKER) (test compar ed to previous code = 753) results; clinic al correlation req uired MEAN CORPUSCULAR 25.9 pg 25.6-32.2 HEMOGLOBIN (BEAKER) (test code = 751) MEAN CORPUSCULAR 31.3 GM/DL 32.2-35.5 L HEMOGLOBIN CONC (BEAKER) (test code = 752) RED CELL DISTRIBUTION 18.1 % 11.7-14.4 H WIDTH (BEAKER) (test code = 412) PLATELET COUNT 170 K/CU MM 150-450 (BEAKER) (test code = 756) MEAN PLATELET VOLUME 12.1 fL 9.4-12.3 (BEAKER) (test code = 754) NUCLEATED RED BLOOD 0 /100 WBC 0-0 CELLS (BEAKER) (test code = 413) [id number] 05:48:13 Test Item Value Reference Range Interpretation Comments PHOSPHORUS (BEAKER) (test code = 2.8 mg/dL 2.3-4.7 604) Double Ending Machine Operator ID - PIAYA LCOMPREHENSIVE METABOLIC [id number] 05:48:12 Test Item Value Reference Range Interpretation Comments TOTAL PROTEIN 6.5 gm/dL 6.0-8.3 (BEAKER) (test code = 770) ALBUMIN (BEAKER) 3.0 g/dL 3.5-5.0 L (test code = 1145) ALKALINE 100 U/L 40-150 PHOSPHATASE (BEAKER) (test code = 346) BILIRUBIN TOTAL 0.8 mg/dL 0.2-1.2 (BEAKER) (test code = 377) SODIUM (BEAKER) 133 meq/L 136-145 L (test code = 381) POTASSIUM (BEAKER) 3.7 meq/L 3.5-5.1 (test code = 379) CHLORIDE (BEAKER) 104 meq/L 98-107 (test code = 382) CO2 (BEAKER) (test 21 meq/L 22-29 L code = 355) BLOOD UREA 49 mg/dL 7-21 H NITROGEN (BEAKER) (test code = 354) CREATININE 1.20 mg/dL 0.57-1.25 (BEAKER) (test code = 358) GLUCOSE RANDOM 84 mg/dL 70-105 (BEAKER) (test code = 652) CALCIUM (BEAKER) 8.6 mg/dL 8.4-10.2 (test code = 697) AST (SGOT) 29 U/L 5-34 (BEAKER) (test code = 353) ALT (SGPT) 15 U/L 6-55 (BEAKER) (test code = 347) EGFR (BEAKER) 44 Interpretatio n of eGFR (test code = 1092) mL/min/1.[address] age Description sq m Result G1 Margot l or high >=90 G2 Mildly decreased 60-89 G3a Mildl y to moderately 45-5 9 G3b Moderately to s everely 30-44 G4 Severl y decreased 15-29 G5 Kidney failure <15Reported eGF R is based on the CKD-EPI 2020 equation that d oes not use a race coefficientEsti mated GFR is not as accur ate as Creatinine Basilia karla in predicting glom erular filtration rate . Estimated GFR is not appl icable for dialysis patien ts Double Ending Machine Operator ID - SHWETA [id number] 05:48:12 Test Item Value Reference Range Interpretation Comments MAGNESIUM (BEAKER) (test code = 1.7 mg/dL 1.6-2.6 627) Double Ending Machine Operator ID - SHWETA LCALCIUM, [id number] 05:28:17 Test Item Value Reference Range Interpretation Comments CALCIUM IONIZED (BEAKER) (test 1.13 mmol/L 1.12-1.27 code = 698) PH, BLOOD (BEAKER) (test code = 7.42 1810) (CELLAVISION MANUAL DIFF)2022-09-26 08:04:52 Test Item Value Reference Range Interpretation Comments NEUTROPHILS - REL 81 % (CELLAVISION)(BEAKER) (test code = 2816) LYMPHOCYTES - REL 12 % (CELLAVISION)(BEAKER) (test code = 2817) MONOCYTES - REL 3 % (CELLAVISION)(BEAKER) (test code = 2818) EOSINOPHILS - REL 4 % (CELLAVISION)(BEAKER) (test code = 2819) NEUTROPHILS - ABS 12.47 K/ul 1.56-6.13 H (CELLAVISION)(BEAKER) (test code = 2830) LYMPHOCYTES - ABS 1.85 K/ul 1.18-3.74 (CELLAVISION)(BEAKER) (test code = 2831) MONOCYTES - ABS 0.46 K/uL 0.24-0.36 H (CELLAVISION)(BEAKER) (test code = 2832) EOSINOPHILS - ABS 0.62 K/uL 0.04-0.36 H (CELLAVISION)(BEAKER) (test code = 2834) TOTAL COUNTED (BEAKER) (test code 100 = 1351) SMUDGE CELLS (BEAKER) (test code = Present 1371) LARGE PLT(BEAKER) (test code = Present 2156) ANISOCYTOSIS (BEAKER) (test code = 1+ few 961) MACROCYTES (BEAKER) (test code = 1+ few 964) POIKILOCYTES (BEAKER) (test code = 1+ few 966) OVALOCYTES (BEAKER) (test code = 1+ few 477) ARTIFACT (CELLAVISION)(BEAKER) Present (test code = 3432) PAPPENHEIMER (CELLAVISION)(BEAKER) 1+ few (test code = 3435) PLATELET CONCENTRATION Adequate (CELLAVISION)(BEAKER) (test code = 3438) Double Ending Machine Operator ID - Jeff comments: Slide comments:CBC W/PLT COUNT & AUTO [id number] 08:04:51 Test Item Value Reference Range Interpretation Comments WHITE BLOOD CELL COUNT (BEAKER) 15.4 K/ L 3.5-10.5 H (test code = 775) RED BLOOD CELL COUNT (BEAKER) 3.55 M/ L 3.93-5.22 L (test code = 761) HEMOGLOBIN (BEAKER) (test code = 9.1 GM/DL 11.2-15.7 L 410) HEMATOCRIT (BEAKER) (test code = 28.0 % 34.1-44.9 L 411) MEAN CORPUSCULAR VOLUME (BEAKER) 79 fL 79-95 (test code = 753) MEAN CORPUSCULAR HEMOGLOBIN 25.6 pg 25.6-32.2 (BEAKER) (test code = 751) MEAN CORPUSCULAR HEMOGLOBIN CONC 32.5 GM/DL 32.2-35.5 (BEAKER) (test code = 752) RED CELL DISTRIBUTION WIDTH 17.3 % 11.7-14.4 H (BEAKER) (test code = 412) PLATELET COUNT (BEAKER) (test 251 K/CU MM 150-450 code = 756) MEAN PLATELET VOLUME (BEAKER) 12.2 fL 9.4-12.3 (test code = 754) NUCLEATED RED BLOOD CELLS 0 /100 WBC 0-0 (BEAKER) (test code = 413) [id number] 06:26:33 Test Item Value Reference Range Interpretation Comments PHOSPHORUS (BEAKER) (test code = 4.2 mg/dL 2.3-4.7 604) Double Ending Machine Operator ID - BSCOMPREHENSIVE METABOLIC [id number] 06:26:32 Test Item Value Reference Range Interpretation Comments TOTAL PROTEIN 7.1 gm/dL 6.0-8.3 (BEAKER) (test code = 770) ALBUMIN (BEAKER) 3.2 g/dL 3.5-5.0 L (test code = 1145) ALKALINE 108 U/L 40-150 PHOSPHATASE (BEAKER) (test code = 346) BILIRUBIN TOTAL 0.6 mg/dL 0.2-1.2 (BEAKER) (test code = 377) SODIUM (BEAKER) 136 meq/L 136-145 (test code = 381) POTASSIUM (BEAKER) 3.5 meq/L 3.5-5.1 (test code = 379) CHLORIDE (BEAKER) 104 meq/L 98-107 (test code = 382) CO2 (BEAKER) (test 20 meq/L 22-29 L code = 355) BLOOD UREA 52 mg/dL 7-21 H NITROGEN (BEAKER) (test code = 354) CREATININE 1.23 mg/dL 0.57-1.25 (BEAKER) (test code = 358) GLUCOSE RANDOM 72 mg/dL 70-105 (BEAKER) (test code = 652) CALCIUM (BEAKER) 8.7 mg/dL 8.4-10.2 (test code = 697) AST (SGOT) 34 U/L 5-34 (BEAKER) (test code = 353) ALT (SGPT) 16 U/L 6-55 (BEAKER) (test code = 347) EGFR (BEAKER) 43 Interpretatio n of eGFR (test code = 1092) mL/min/1.[address] age Description sq m Result G1 Margot l or high >=90 G2 Mildly decreased 60-89 G3a Mildl y to moderately 45-5 9 G3b Moderately to s everely 30-44 G4 Severl y decreased 15-29 G5 Kidney failure <15Reported eGF R is based on the CKD-EPI 2020 equation that d oes not use a race coefficientEsti mated GFR is not as accur ate as Creatinine Basilia karla in predicting glom erular filtration rate . Estimated GFR is not appl icable for dialysis patien ts Double Ending Machine Operator ID - [id number] 06:26:32 Test Item Value Reference Range Interpretation Comments MAGNESIUM (BEAKER) (test code = 1.7 mg/dL 1.6-2.6 627) Double Ending Machine Operator ID - BSCALCIUM, [id number] 05:32:39 Test Item Value Reference Range Interpretation Comments CALCIUM IONIZED (BEAKER) (test 1.12 mmol/L 1.12-1.27 code = 698) PH, BLOOD (BEAKER) (test code = 7.35 1810) [id number] 14:44:24 Test Item Value Reference Range Interpretation Comments ACTIVATED CLOTTING TIME 359 sec : 74 -137 seconds, (BEAKER) (test code = Baseli ne: TESTED AT 441) [facility] [address] [facility], [address] 30: Double Ending Machine Operator/Techni juve ID = [id number] for Ho Lia montoya [id number] 14:31:34 Test Item Value Reference Range Interpretation Comments ACTIVATED CLOTTING TIME 299 sec : 74 -137 seconds, (BEAKER) (test code = Baseli ne: TESTED AT 441) [address], [facility] 30: Double Ending Machine Operator/Techni juve ID = [id number] for CA RPIO, GARCÍA CT, CTA, [id number] 10:55:00TAVR protocolUnlisted Reason for Exam - Click Yes and Enter Reason Below->No [facility] : 1935 Sex: FAddendum Radha nsREPORT STATUS:A Addendum: I have reviewed the report from Dr. Porter. I agreewith the previously described non vascular findings with additional comments as below. 1.There is a background of mosaic attenuation to the lungs, which may represent small airway or small vessel disease. Multiple lung nodules measuring up to 8 mm are identified. Largest of these is in the right lowerlobe. See recommendations below.2.Small hiatal hernia. Multiple nodules size 6-8 mmlow risk patients: follow-up at 3-6 months, then consider further follow-up at 18-24 monthshigh risk patients: follow-up at 3-6 months, then at 18-24 months if no change Signed: Alexa Castelan [facility] Verified Date/Time:09/25/2022 10:55:42 Reading Location: [place] [address] Angio Body Reading RoomAddendum EndsFINAL REPORT CT angiography of the thoracoabdominal aorta and pelvic arteries, 23-Sep-22 INDICATION: This is a 86 year old female with diagnosis of aortic stenosis, presents of preprocedure TAVR assessment. TECHNIQUE: Spiral acquisition before and during intravenous contrast administration usinga Siemens multidetector CT scanner. Images were obtained before and during the dynamic passage of intravenous contrast material. Multi-planar 3-D volume-rendering reconstruction was performed using an Heap workstation interactively by the interpreting physician as well as the 3-D specialist foroptimal visualisation of the thoracoabdominal aorta, the pelvic arteries as well as its proximal branches. Please refer to the contrast sheet scanned in the EPIC system for the amount and route of contrast given. This exam was performed according to our departmental dose-optimisation programme, which includes automated exposure control, adjustment of the mA and/or kV according to patient size and/or use of iterative reconstruction technique. Dose modulation, iterative reconstruction, and/or weight based adjustment of the mA/kV was utilized to reduce the radiation dose to as low as reasonably achievable. FINDINGS: VASCULAR: An electronic device is identified in the left upper chest, with pacing leads identified in the right-sided cardiac chambers. The pericardium appears unremarkable. No pericardial effusion is identified. The central pulmonary artery is normal in calibre. There is no evidence ofcentral pulmonary artery embolism. The cardiac chambers demonstrate normal atrioventricular and ventriculoarterial concordance, and systemic and pulmonary venous return. No pericardial effusion is identified. The left ventricle is normal in size. Mild left atrial prominence is identified. Mitral annular calcification is seen posteriorly extends superiorly and inferiorly. The coronary artery origins are normal. The left main coronary artery is widely patent. The proximal LAD is widely patent. The midLAD become a small calibre vessel, not well assessed. The LCx is diffuse calcification identified. Diffuse calcification is seen in the RCA territory though no obstructive lesion is appreciated. Patient has a diagnosis of aortic stenosis. The aortic valve is tricuspid. The aortic Agatston score is 2043. The aortic valve area is 61 mm2. The location of aortic valvular calcification can be seen in reformatted data set sent to PACS. Regarding the aorta, minimal calcification is seen in the aortic root and ascending thoracic aorta. The transverse arch and descending thoracic aorta is minimal calcification identified. Mild circumferential calcification is identified in the dominant aorta. There is no evidence of acute aortic pathology, specifically, there is no dissection, intramural hematoma, or contained rupture. The arch vessel branching pattern is normal and the visualized arch vessels are widelypatent proximally. Mild calcification is seen in the proximal left subclavian artery. Moderate circumferential calcification is seen at the takeoff of the right subclavian artery, with minimum luminal d iameter of approximately 3.1 x 3.6 mm. In any case, the pelvic arteries are widely patent. The coeliac axis is not well appreciated. The SMA is widely patent. The hepatic artery arises from the SMA. The splenic artery appears to receive branches from the SMA. The MARGARET is a small calibre vessel. The right renal artery is widely patent with nonobstructive calcification identified proximally. Nonobstructive calcification is identified the takeoff of the left renal artery. The common iliac, external iliac, common femoral, and the visualized superficial femoral arteries, bilaterally, are widely patent with no obstructive lesion identified. Only minimal calcification is seen. Dimensions that may be helpful for TAVR as follows: There is mild calcification identified ascending thoracic aorta. The major and minor aortic annulus diameter measures 23.7 and 18.5 mm, respectively. The aortic annulus perimetermeasured 66 mm and the cross-sectional area measures 337 mm2. The aortic annulus diameter at the traditional LVOT and coronal LVOT measures 15.7 and 17.4 mm, respectively. For reference purpose, per [facility] S[facility] brochure, recommendation are as follows: CT area between 273 to 345 mm2 (20 mm valve); 338 to 430 mm2 (23 mm valve); 430 to 546 mm2 (26 mm valve); 540 to 683 mm2 (29 mm valve). For reference purpose, per [employer] brochure, recommendation are as follows: CT perimeter between 56.5-62.8mm (23 mm valve); 62.8-72.3 mm (26 mm valve); 72.3-81.7 mm (29 mm valve); and 81.7-94.2. mm (34 mm valve). Agatston Score is 2043. The aortic valve area is 61 mm2. The distance between the take off of the RCA and the annulus (systole): 14.8 mmThe distance between the take off of the LM and the annulus(systole): 12.2 mm The sinus of Valsalva diameter, RCC (systole): 30.6 mmThe sinus of Valsalva diameter, LCC (systole): 31.4 mmThe sinus of Valsalva diameter, NCC (systole): 29.5 mm The sinotubular junction measures, 27.3 x 26.4 mm. At 4 cm above the aortic annular plane the aorta measures 32.1 x 33.5mm. The aortic root angulation measures 65.3 degrees. The angle of delivery is BELIZEAN 33 CLOTH PRINTER 10. The minimal and perpendicular abdominal aortic diameter measure 12.9 and 13.9 mm, respectively. There is noevidence of thoracoabdominal aortic aneurysm or stent placement present. The minimum and the perpendicular left common iliac artery measures 7.8 and 8.1 mm, respectively with mild tortuosity and mild ca lcific atherosclerosis present. The minimum and the perpendicular left external iliac artery measures 7.5 and 7.6 mm, respectively with moderate to moderate tortuosity and no calcific atherosclerosis present. The minimum and the perpendicular left femoral artery measures 7.0 and 7.9 mm, respectively with mild tortuosity and mild calcific atherosclerosis present. The minimum and the perpendicular right common iliac artery measures 6.5 and 8.3 mm, respectively with grnr-yc-mchakavx tortuosity and milddiffuse calcific atherosclerosis present. The minimum and the perpendicular right external iliac artery measures 7.4 and 7.7 mm, respectively with moderate tortuosity and minimal calcific atherosclerosis present. The minimum and the perpendicular right femoral artery measures 6.6 and 7.0 mm, respectively with mild tortuosity and minimal calcific atherosclerosis present. NON-VASCULAR: A hypodensity isidentified in the left thyroid lobe at image 24 measuring 14 mm in diameter. Dedicated thyroid ultras ound scan should be performed electively, for tissue catheterization. The chest wall and mediastinumappear normal. Small scattered lymph nodes are seen, not enlarged, therefore considered nonspecific in nature. Punctate calcification is identified in the right breast, at image 392, likely incidental finding. In the lung windows, no obvious endobronchial lesion is seen and no pleural effusion is identified. In the 1 mm data set, scattered nodules identified, for example at image 251 in the right lung measure 2 mm; and a 2 mm at image 281 in the right lower lobe as well as patchy nodular opacity identified at image 377. An addendum dictated thereafter for optimal recommendation. In the abdomen, the liver and spleen appears unremarkable. No abnormal enhancing structure is identified. The liver edgeis smooth. Patient is post cholecystectomy, and the pancreas appears grossly normal. The adrenal glands are not enlarged. No acute renal pathology seen. No hydronephrosis or perirenal fluid collection is identified. Bowel is not well assessed by CT angiography as enteric contrast is not given. No obvious bowel dilation is seen. There is no significant retroperitoneal adenopathy. No free fluid or freeair is identified. The bladder is distended. The uterus is present and atrophic. No abnormal adnexalmass is seen. No acute bony pathology is seen. Sclerosis is identified the lumbar level with degenerative changes present. CONCLUSIONS: 1. Patient has a diagnosis of aortic stenosis. The aortic valve is tricuspid. The aortic Agatston Score is 2043 and aortic valve area is 61 mm2. Mitral annular calcifications identified posteriorly extends superiorly/inferiorly. Only minimal calcification is identified ascending thoracic aorta. Dimensions that may be helpful for TAVR as described above. 2. Coronaryartery origins are normal. The left main coronary artery is widely patent. Minimal calcification is seen in the proximal LAD that is also widely patent. 3. The central pulmonary artery is normal in calibre. Small pulmonary nodules are seen scattered in the lung parr. An addendum will be dictated thereafter, for optimal recommendation. 4. Other findings as described above. A hypodensity is identified in the left thyroid lobe at image 24 measuring 14 mm in diameter. Dedicated thyroid ultrasound scanshould be performed electively, for tissue catheterization. 5. An addendum will be dictated by the Workers Compensation Claims Supervisor Radiologist regarding the nonvascular findings. THE REPORT WILL ONLY BE CONSIDERED COMPLETEAFTER THE ADDENDUM HAS BEEN DICTATED. Signed: Jose Porter MDReport Verified Date/Time: 09/24/2022 16:14:27 CT, CTA ABDOMEN 2022-09-25 10:55:00TAVR protocolUnlisted Reason for Exam - Click Yes and Enter Reason Below->No [facility] : 1935 Sex: FAddendum Radha nsREPORT STATUS:A Addendum: I have reviewed the report from Dr. Porter. I agreewith the previously described non vascular findings with additional comments as below. 1.There is a background of mosaic attenuation to the lungs, which may represent small airway or small vessel disease. Multiple lung nodules measuring up to 8 mm are identified. Largest of these is in the right lowerlobe. See recommendations below.2.Small hiatal hernia. Multiple nodules size 6-8 mmlow risk patients: follow-up at 3-6 months, then consider further follow-up at 18-24 monthshigh risk patients: follow-up at 3-6 months, then at 18-24 months if no change Signed: Alexa Castelan MDReport Verified Date/Time:09/25/2022 10:55:42 Reading Location: [place] [address] Angio Body Reading RoomAddendum EndsFINAL REPORT CT angiography of the thoracoabdominal aorta and pelvic arteries, 23-Sep-22 INDICATION: This is a 86 year old female with diagnosis of aortic stenosis, presents of preprocedure TAVR assessment. TECHNIQUE: Spiral acquisition before and during intravenous contrast administration usinga Siemens multidetector CT scanner. Images were obtained before and during the dynamic passage of intravenous contrast material. Multi-planar 3-D volume-rendering reconstruction was performed using an [employer] workstation interactively by the interpreting physician as well as the 3-D specialist foroptimal visualisation of the thoracoabdominal aorta, the pelvic arteries as well as its proximal branches. Please refer to the contrast sheet scanned in the [employer] system for the amount and route of contrast given. This exam was performed according to our departmental dose-optimisation programme, which includes automated exposure control, adjustment of the mA and/or kV according to patient size and/or use of iterative reconstruction technique. Dose modulation, iterative reconstruction, and/or weight based adjustment of the mA/kV was utilized to reduce the radiation dose to as low as reasonably achievable. FINDINGS: VASCULAR: An electronic device is identified in the left upper chest, with pacing leads identified in the right-sided cardiac chambers. The pericardium appears unremarkable. No pericardial effusion is identified. The central pulmonary artery is normal in calibre. There is no evidence ofcentral pulmonary artery embolism. The cardiac chambers demonstrate normal atrioventricular and ventriculoarterial concordance, and systemic and pulmonary venous return. No pericardial effusion is identified. The left ventricle is normal in size. Mild left atrial prominence is identified. Mitral annular calcification is seen posteriorly extends superiorly and inferiorly. The coronary artery origins are normal. The left main coronary artery is widely patent. The proximal LAD is widely patent. The midLAD become a small calibre vessel, not well assessed. The LCx is diffuse calcification identified. Diffuse calcification is seen in the RCA territory though no obstructive lesion is appreciated. Patient has a diagnosis of aortic stenosis. The aortic valve is tricuspid. The aortic Agatston score is 2043. The aortic valve area is 61 mm2. The location of aortic valvular calcification can be seen in reformatted data set sent to PACS. Regarding the aorta, minimal calcification is seen in the aortic root and ascending thoracic aorta. The transverse arch and descending thoracic aorta is minimal calcification identified. Mild circumferential calcification is identified in the dominant aorta. There is no evidence of acute aortic pathology, specifically, there is no dissection, intramural hematoma, or contained rupture. The arch vessel branching pattern is normal and the visualized arch vessels are widelypatent proximally. Mild calcification is seen in the proximal left subclavian artery. Moderate circumferential calcification is seen at the takeoff of the right subclavian artery, with minimum luminal d iameter of approximately 3.1 x 3.6 mm. In any case, the pelvic arteries are widely patent. The coeliac axis is not well appreciated. The SMA is widely patent. The hepatic artery arises from the SMA. The splenic artery appears to receive branches from the SMA. The MARGARET is a small calibre vessel. The right renal artery is widely patent with nonobstructive calcification identified proximally. Nonobstructive calcification is identified the takeoff of the left renal artery. The common iliac, external iliac, common femoral, and the visualized superficial femoral arteries, bilaterally, are widely patent with no obstructive lesion identified. Only minimal calcification is seen. Dimensions that may be helpful for TAVR as follows: There is mild calcification identified ascending thoracic aorta. The major and minor aortic annulus diameter measures 23.7 and 18.5 mm, respectively. The aortic annulus perimetermeasured 66 mm and the cross-sectional area measures 337 mm2. The aortic annulus diameter at the traditional LVOT and coronal LVOT measures 15.7 and 17.4 mm, respectively. For reference purpose, per [facility] brochure, recommendation are as follows: CT area between 273 to 345 mm2 (20 mm valve); 338 to 430 mm2 (23 mm valve); 430 to 546 mm2 (26 mm valve); 540 to 683 mm2 (29 mm valve). For reference purpose, per [employer] brochure, recommendation are as follows: CT perimeter between 56.5-62.8mm (23 mm valve); 62.8-72.3 mm (26 mm valve); 72.3-81.7 mm (29 mm valve); and 81.7-94.2. mm (34 mm valve). Agatston Score is 2043. The aortic valve area is 61 mm2. The distance between the take off of the RCA and the annulus (systole): 14.8 mmThe distance between the take off of the LM and the annulus(systole): 12.2 mm The sinus of Valsalva diameter, RCC (systole): 30.6 mmThe sinus of Valsalva diameter, LCC (systole): 31.4 mmThe sinus of Valsalva diameter, NCC (systole): 29.5 mm The sinotubular junction measures, 27.3 x 26.4 mm. At 4 cm above the aortic annular plane the aorta measures 32.1 x 33.5mm. The aortic root angulation measures 65.3 degrees. The angle of delivery is BELIZEAN 33 CLOTH PRINTER 10. The minimal and perpendicular abdominal aortic diameter measure 12.9 and 13.9 mm, respectively. There is noevidence of thoracoabdominal aortic aneurysm or stent placement present. The minimum and the perpendicular left common iliac artery measures 7.8 and 8.1 mm, respectively with mild tortuosity and mild ca lcific atherosclerosis present. The minimum and the perpendicular left external iliac artery measures 7.5 and 7.6 mm, respectively with moderate to moderate tortuosity and no calcific atherosclerosis present. The minimum and the perpendicular left femoral artery measures 7.0 and 7.9 mm, respectively with mild tortuosity and mild calcific atherosclerosis present. The minimum and the perpendicular right common iliac artery measures 6.5 and 8.3 mm, respectively with pgzb-gu-wewryzpp tortuosity and milddiffuse calcific atherosclerosis present. The minimum and the perpendicular right external iliac artery measures 7.4 and 7.7 mm, respectively with moderate tortuosity and minimal calcific atherosclerosis present. The minimum and the perpendicular right femoral artery measures 6.6 and 7.0 mm, respectively with mild tortuosity and minimal calcific atherosclerosis present. NON-VASCULAR: A hypodensity isidentified in the left thyroid lobe at image 24 measuring 14 mm in diameter. Dedicated thyroid ultras ound scan should be performed electively, for tissue catheterization. The chest wall and mediastinumappear normal. Small scattered lymph nodes are seen, not enlarged, therefore considered nonspecific in nature. Punctate calcification is identified in the right breast, at image 392, likely incidental finding. In the lung windows, no obvious endobronchial lesion is seen and no pleural effusion is identified. In the 1 mm data set, scattered nodules identified, for example at image 251 in the right lung measure 2 mm; and a 2 mm at image 281 in the right lower lobe as well as patchy nodular opacity identified at image 377. An addendum dictated thereafter for optimal recommendation. In the abdomen, the liver and spleen appears unremarkable. No abnormal enhancing structure is identified. The liver edgeis smooth. Patient is post cholecystectomy, and the pancreas appears grossly normal. The adrenal glands are not enlarged. No acute renal pathology seen. No hydronephrosis or perirenal fluid collection is identified. Bowel is not well assessed by CT angiography as enteric contrast is not given. No obvious bowel dilation is seen. There is no significant retroperitoneal adenopathy. No free fluid or freeair is identified. The bladder is distended. The uterus is present and atrophic. No abnormal adnexalmass is seen. No acute bony pathology is seen. Sclerosis is identified the lumbar level with degenerative changes present. CONCLUSIONS: 1. Patient has a diagnosis of aortic stenosis. The aortic valve is tricuspid. The aortic Agatston Score is 2043 and aortic valve area is 61 mm2. Mitral annular calcifications identified posteriorly extends superiorly/inferiorly. Only minimal calcification is identified ascending thoracic aorta. Dimensions that may be helpful for TAVR as described above. 2. Coronary artery origins are normal. The left main coronary artery is widely patent. Minimal calcification is seen in the proximal LAD that is also widely patent. 3. The central pulmonary artery is normal in calibre. Small pulmonary nodules are seen scattered in the lung parr. An addendum will be dictated thereafter, for optimal recommendation. 4. Other findings as described above. A hypodensity is identifiedin the left thyroid lobe at image 24 measuring 14 mm in diameter. Dedicated thyroid ultrasound scan should be performed electively, for tissue catheterization. 5. An addendum will be dictated by the Workers Compensation Claims Supervisor Radiologist regarding the nonvascular findings. THE REPORT WILL ONLY BE CONSIDERED COMPLETE AFTER THE ADDENDUM HAS BEEN DICTATED. Signed: Jose Porter MDReport Verified Date/Time: 09/24/2022 16:14:27 PHOSPHOR 2022-09-25 05:36:19 Test Item Value Reference Range Interpretation Comments PHOSPHORUS (BEAKER) (test code = 4.5 mg/dL 2.3-4.7 604) Double Ending Machine Operator ID - ED[facility]AR [facility] [id number] 05:36:18 Test Item Value Reference Range Interpretation Comments TOTAL PROTEIN 7.7 gm/dL 6.0-8.3 (BEAKER) (test code = 770) ALBUMIN (BEAKER) 3.4 g/dL 3.5-5.0 L (test code = 1145) ALKALINE 110 U/L 40-150 PHOSPHATASE (BEAKER) (test code = 346) BILIRUBIN TOTAL 0.5 mg/dL 0.2-1.2 (BEAKER) (test code = 377) SODIUM (BEAKER) 134 meq/L 136-145 L (test code = 381) POTASSIUM (BEAKER) 3.9 meq/L 3.5-5.1 (test code = 379) CHLORIDE (BEAKER) 99 meq/L 98-107 (test code = 382) CO2 (BEAKER) (test 23 meq/L 22-29 code = 355) BLOOD UREA 54 mg/dL 7-21 H NITROGEN (BEAKER) (test code = 354) CREATININE 1.43 mg/dL 0.57-1.25 H (BEAKER) (test code = 358) GLUCOSE RANDOM 85 mg/dL 70-105 (BEAKER) (test code = 652) CALCIUM (BEAKER) 9.5 mg/dL 8.4-10.2 (test code = 697) AST (SGOT) 30 U/L 5-34 (BEAKER) (test code = 353) ALT (SGPT) 17 U/L 6-55 (BEAKER) (test code = 347) EGFR (BEAKER) 35 Interpretatio n of eGFR (test code = 1092) mL/min/1.73 values S tage Description sq m Result G1 Margot l or high >=90 G2 Mildly decreased 60-89 G3a Mildl y to moderately 45-5 9 G3b Moderately to s everely 30-44 G4 Severl y decreased 15-29 G5 Kidney failure <15Reported eGF R is based on the CKD-EPI 2020 equation that d oes not use a race coefficientEsti mated GFR is not as accur ate as Creatinine Basilia karla in predicting glom erular filtration rate . Estimated GFR is not appl icable for dialysis patien ts Double Ending Machine Operator ID - EDGAR [id number] 05:36:18 Test Item Value Reference Range Interpretation Comments MAGNESIUM (BEAKER) (test code = 1.6 mg/dL 1.6-2.6 627) Double Ending Machine Operator ID - EDGAR [facility] W/PLT COUNT & AUTO [id number] 04:36:47 Test Item Value Reference Range Interpretation Comments WHITE BLOOD CELL COUNT (BEAKER) 11.7 K/ L 3.5-10.5 H (test code = 775) RED BLOOD CELL COUNT (BEAKER) 3.73 M/ L 3.93-5.22 L (test code = 761) HEMOGLOBIN (BEAKER) (test code = 9.7 GM/DL 11.2-15.7 L 410) HEMATOCRIT (BEAKER) (test code = 29.9 % 34.1-44.9 L 411) MEAN CORPUSCULAR VOLUME (BEAKER) 80 fL 79-95 (test code = 753) MEAN CORPUSCULAR HEMOGLOBIN 26.0 pg 25.6-32.2 (BEAKER) (test code = 751) MEAN CORPUSCULAR HEMOGLOBIN CONC 32.4 GM/DL 32.2-35.5 (BEAKER) (test code = 752) RED CELL DISTRIBUTION WIDTH 17.2 % 11.7-14.4 H (BEAKER) (test code = 412) PLATELET COUNT (BEAKER) (test 304 K/CU MM 150-450 code = 756) MEAN PLATELET VOLUME (BEAKER) 11.5 fL 9.4-12.3 (test code = 754) NUCLEATED RED BLOOD CELLS 0 /100 WBC 0-0 (BEAKER) (test code = 413) NEUTROPHILS RELATIVE PERCENT 56 % (BEAKER) (test code = 429) LYMPHOCYTES RELATIVE PERCENT 25 % (BEAKER) (test code = 430) MONOCYTES RELATIVE PERCENT 11 % (BEAKER) (test code = 431) EOSINOPHILS RELATIVE PERCENT 8 % (BEAKER) (test code = 432) BASOPHILS RELATIVE PERCENT 0 % (BEAKER) (test code = 437) NEUTROPHILS ABSOLUTE COUNT 6.49 K/ L 1.56-6.13 H (BEAKER) (test code = 670) LYMPHOCYTES ABSOLUTE COUNT 2.88 K/ L 1.18-3.74 (BEAKER) (test code = 414) MONOCYTES ABSOLUTE COUNT (BEAKER) 1.29 K/ L 0.24-0.36 H (test code = 415) EOSINOPHILS ABSOLUTE COUNT 0.95 K/ L 0.04-0.36 H (BEAKER) (test code = 416) BASOPHILS ABSOLUTE COUNT (BEAKER) 0.03 K/ L 0.01-0.08 (test code = 417) IMMATURE GRANULOCYTES-RELATIVE 0.30 % 0.00-1.00 PERCENT (BEAKER) (test code = 2801) CALCIUM, [id number] 04:20:23 Test Item Value Reference Range Interpretation Comments CALCIUM IONIZED (BEAKER) (test 1.12 mmol/L 1.12-1.27 code = 698) PH, BLOOD (BEAKER) (test code = 7.45 1810) BASIC METABOLIC [id number] 20:54:15 Test Item Value Reference Range Interpretation Comments SODIUM (BEAKER) 134 meq/L 136-145 L (test code = 381) POTASSIUM 4.4 meq/L 3.5-5.1 (BEAKER) (test code = 379) CHLORIDE (BEAKER) 99 meq/L 98-107 (test code = 382) CO2 (BEAKER) 22 meq/L 22-29 (test code = 355) BLOOD UREA 51 mg/dL 7-21 H NITROGEN (BEAKER) (test code = 354) CREATININE 1.50 mg/dL 0.57-1.25 H (BEAKER) (test code = 358) GLUCOSE RANDOM 99 mg/dL 70-105 (BEAKER) (test code = 652) CALCIUM (BEAKER) 10.1 mg/dL 8.4-10.2 (test code = 697) EGFR (BEAKER) 34 Interpretatio n of eGFR (test code = mL/min/1.73 values Stage De scription 1092) sq m Result G1 Margot l or high >=90 G2 Mildly decreased 60-89 G3a Mildl y to moderately 45-5 9 G3b Moderately to s everely 30-44 G4 Severl y decreased 15-29 G5 Kidney failure <15Reported eGF R is based on the CKD-EPI 2020 equation that d oes not use a race coefficientEsti mated GFR is not as accur ate as Creatinine Basilia karla in predicting glom erular filtration rate . Estimated GFR is not appl icable for dialysis patien ts Double Ending Machine Operator ID - [id number] 06:14:55 Test Item Value Reference Range Interpretation Comments MAGNESIUM (BEAKER) (test code = 1.8 mg/dL 1.6-2.6 627) Double Ending Machine Operator ID - BSBASIC METABOLIC [id number] 06:14:54 Test Item Value Reference Range Interpretation Comments SODIUM (BEAKER) 137 meq/L 136-145 (test code = 381) POTASSIUM 5.2 meq/L 3.5-5.1 H (BEAKER) (test code = 379) CHLORIDE (BEAKER) 101 meq/L 98-107 (test code = 382) CO2 (BEAKER) 23 meq/L 22-29 (test code = 355) BLOOD UREA 48 mg/dL 7-21 H NITROGEN (BEAKER) (test code = 354) CREATININE 1.40 mg/dL 0.57-1.25 H (BEAKER) (test code = 358) GLUCOSE RANDOM 80 mg/dL 70-105 (BEAKER) (test code = 652) CALCIUM (BEAKER) 10.3 mg/dL 8.4-10.2 H (test code = 697) EGFR (BEAKER) 36 Interpretatio n of eGFR (test code = mL/min/1.73 values Stage De scription 1092) sq m Result G1 Margot l or high >=90 G2 Mildly decreased 60-89 G3a Mildl y to moderately 45-5 9 G3b Moderately to s everely 30-44 G4 Severl y decreased 15-29 G5 Kidney failure <15Reported eGF R is based on the CKD-EPI 1 equation that d oes not use a race coefficientEsti mated GFR is not as accur ate as Creatinine Basilia acosta in predicting glom erular filtration rate . Estimated GFR is not appl icable for dialysis patien ts Double Ending Machine Operator ID - BSCBC W/PLT COUNT & AUTO [id number] 06:10:46 Test Item Value Reference Range Interpretation Comments WHITE BLOOD CELL COUNT (BEAKER) 11.0 K/ L 3.5-10.5 H (test code = 775) RED BLOOD CELL COUNT (BEAKER) 3.70 M/ L 3.93-5.22 L (test code = 761) HEMOGLOBIN (BEAKER) (test code = 9.6 GM/DL 11.2-15.7 L 410) HEMATOCRIT (BEAKER) (test code = 30.5 % 34.1-44.9 L 411) MEAN CORPUSCULAR VOLUME (BEAKER) 82 fL 79-95 (test code = 753) MEAN CORPUSCULAR HEMOGLOBIN 25.9 pg 25.6-32.2 (BEAKER) (test code = 751) MEAN CORPUSCULAR HEMOGLOBIN CONC 31.5 GM/DL 32.2-35.5 L (BEAKER) (test code = 752) RED CELL DISTRIBUTION WIDTH 17.2 % 11.7-14.4 H (BEAKER) (test code = 412) PLATELET COUNT (BEAKER) (test 316 K/CU MM 150-450 code = 756) MEAN PLATELET VOLUME (BEAKER) 11.7 fL 9.4-12.3 (test code = 754) NUCLEATED RED BLOOD CELLS 0 /100 WBC 0-0 (BEAKER) (test code = 413) NEUTROPHILS RELATIVE PERCENT 53 % (BEAKER) (test code = 429) LYMPHOCYTES RELATIVE PERCENT 26 % (BEAKER) (test code = 430) MONOCYTES RELATIVE PERCENT 12 % (BEAKER) (test code = 431) EOSINOPHILS RELATIVE PERCENT 8 % (BEAKER) (test code = 432) BASOPHILS RELATIVE PERCENT 1 % (BEAKER) (test code = 437) NEUTROPHILS ABSOLUTE COUNT 5.87 K/ L 1.56-6.13 (BEAKER) (test code = 670) LYMPHOCYTES ABSOLUTE COUNT 2.88 K/ L 1.18-3.74 (BEAKER) (test code = 414) MONOCYTES ABSOLUTE COUNT (BEAKER) 1.34 K/ L 0.24-0.36 H (test code = 415) EOSINOPHILS ABSOLUTE COUNT 0.82 K/ L 0.04-0.36 H (BEAKER) (test code = 416) BASOPHILS ABSOLUTE COUNT (BEAKER) 0.05 K/ L 0.01-0.08 (test code = 417) IMMATURE GRANULOCYTES-RELATIVE 0.40 % 0.00-1.00 PERCENT (BEAKER) (test code = 2801) [id number] 05:58:46 Test Item Value Reference Range Interpretation Comments MAGNESIUM (BEAKER) (test code = 1.7 mg/dL 1.6-2.6 627) Double Ending Machine Operator ID - MARCOBASIC METABOLIC [id number] 05:58:45 Test Item Value Reference Range Interpretation Comments SODIUM (BEAKER) 135 meq/L 136-145 L (test code = 381) POTASSIUM 5.0 meq/L 3.5-5.1 (BEAKER) (test code = 379) CHLORIDE (BEAKER) 104 meq/L 98-107 (test code = 382) CO2 (BEAKER) 23 meq/L 22-29 (test code = 355) BLOOD UREA 35 mg/dL 7-21 H NITROGEN (BEAKER) (test code = 354) CREATININE 1.15 mg/dL 0.57-1.25 (BEAKER) (test code = 358) GLUCOSE RANDOM 78 mg/dL 70-105 (BEAKER) (test code = 652) CALCIUM (BEAKER) 9.9 mg/dL 8.4-10.2 (test code = 697) EGFR (BEAKER) 46 Interpretatio n of eGFR (test code = mL/min/1.73 values Stage D escription 1092) sq m Result G1 Margot l or high >=90 G2 Mildly decreased 60-89 G3a Mildl y to moderately 45-5 9 G3b Moderately to s everely 30-44 G4 Severl y decreased 15-29 G5 Kidney failure <15Reported eGF R is based on the CKD-EPI 2020 equation that d oes not use a race coefficientEsti mated GFR is not as accur ate as Creatinine Basilia karla in predicting glom erular filtration rate . Estimated GFR is not appl icable for dialysis patien ts Double Ending Machine Operator ID - MARCOCBC W/PLT COUNT & AUTO [id number] 05:27:09 Test Item Value Reference Range Interpretation Comments WHITE BLOOD CELL COUNT (BEAKER) 8.3 K/ L 3.5-10.5 (test code = 775) RED BLOOD CELL COUNT (BEAKER) 3.34 M/ L 3.93-5.22 L (test code = 761) HEMOGLOBIN (BEAKER) (test code = 8.5 GM/DL 11.2-15.7 L 410) HEMATOCRIT (BEAKER) (test code = 27.2 % 34.1-44.9 L 411) MEAN CORPUSCULAR VOLUME (BEAKER) 81 fL 79-95 (test code = 753) MEAN CORPUSCULAR HEMOGLOBIN 25.4 pg 25.6-32.2 L (BEAKER) (test code = 751) MEAN CORPUSCULAR HEMOGLOBIN CONC 31.3 GM/DL 32.2-35.5 L (BEAKER) (test code = 752) RED CELL DISTRIBUTION WIDTH 16.7 % 11.7-14.4 H (BEAKER) (test code = 412) PLATELET COUNT (BEAKER) (test 270 K/CU MM 150-450 code = 756) MEAN PLATELET VOLUME (BEAKER) 11.6 fL 9.4-12.3 (test code = 754) NUCLEATED RED BLOOD CELLS 0 /100 WBC 0-0 (BEAKER) (test code = 413) NEUTROPHILS RELATIVE PERCENT 53 % (BEAKER) (test code = 429) LYMPHOCYTES RELATIVE PERCENT 26 % (BEAKER) (test code = 430) MONOCYTES RELATIVE PERCENT 13 % (BEAKER) (test code = 431) EOSINOPHILS RELATIVE PERCENT 7 % (BEAKER) (test code = 432) BASOPHILS RELATIVE PERCENT 1 % (BEAKER) (test code = 437) NEUTROPHILS ABSOLUTE COUNT 4.40 K/ L 1.56-6.13 (BEAKER) (test code = 670) LYMPHOCYTES ABSOLUTE COUNT 2.20 K/ L 1.18-3.74 (BEAKER) (test code = 414) MONOCYTES ABSOLUTE COUNT (BEAKER) 1.06 K/ L 0.24-0.36 H (test code = 415) EOSINOPHILS ABSOLUTE COUNT 0.61 K/ L 0.04-0.36 H (BEAKER) (test code = 416) BASOPHILS ABSOLUTE COUNT (BEAKER) 0.04 K/ L 0.01-0.08 (test code = 417) IMMATURE GRANULOCYTES-RELATIVE 0.10 % 0.00-1.00 PERCENT (BEAKER) (test code = 2801) BASIC METABOLIC [id number] 09:23:32 Test Item Value Reference Range Interpretation Comments SODIUM (BEAKER) 137 meq/L 136-145 (test code = 381) POTASSIUM 4.9 meq/L 3.5-5.1 (BEAKER) (test code = 379) CHLORIDE (BEAKER) 108 meq/L 98-107 H (test code = 382) CO2 (BEAKER) 22 meq/L 22-29 (test code = 355) BLOOD UREA 32 mg/dL 7-21 H NITROGEN (BEAKER) (test code = 354) CREATININE 0.99 mg/dL 0.57-1.25 (BEAKER) (test code = 358) GLUCOSE RANDOM 73 mg/dL 70-105 (BEAKER) (test code = 652) CALCIUM (BEAKER) 9.6 mg/dL 8.4-10.2 (test code = 697) EGFR (BEAKER) 55 Interpretatio n of eGFR (test code = mL/min/1.73 values Stage De scription 1092) sq m Result G1 Margot l or high >=90 G2 Mildly decreased 60-89 G3a Mildl y to moderately 45-5 9 G3b Moderately to s everely 30-44 G4 Severl y decreased 15-29 G5 Kidney failure <15Reported eGF R is based on the CKD-EPI 1 equation that d oes not use a race coefficientEsti mated GFR is not as accur ate as Creatinine Basilia karla in predicting glom erular filtration rate . Estimated GFR is not appl icable for dialysis patien ts Double Ending Machine Operator ID - JOSEY D, CHEST, 1 VIEW, NON [id number] 07:39:00Reason for exam:->EdemaShould this be performed at the bedside?->Yes [facility] 1935 Sex: FFINAL REPORTPATIENT ID: [id number] RAD, CHEST, 1 VIEW, NON DEPT INDICATION: Edema COMPARISON: Prior day's exam FINDINGS: Portable frontal view of the chest. IMPRESSION: Support Lines: Pacer Lungs and pleura: Diffusebilateral interstitial thickening, unchanged No significant pneumothorax. Heart and mediastinum: Stable contours. Stable surgical changes. Additional findings: None. Signed: Godfrey Perkins Verified Date/Time: 09/22/2022 07:39:26 B-TYPE NATRIURETIC FACTOR (BNP) 2022-09-22 07:22:21 Test Item Value Reference Range Interpretation Comments B-TYPE NATRIURETIC PEPTIDE (BEAKER) 361 pg/mL 0-100 H (test code = 700) Double Ending Machine Operator BHUPENDRA - JOSEY SCBC W/PLT COUNT & AUTO [id number] 06:54:55 Test Item Value Reference Range Interpretation Comments WHITE BLOOD CELL COUNT (BEAKER) 7.8 K/ L 3.5-10.5 (test code = 775) RED BLOOD CELL COUNT (BEAKER) 3.09 M/ L 3.93-5.22 L (test code = 761) HEMOGLOBIN (BEAKER) (test code = 8.0 GM/DL 11.2-15.7 L 410) HEMATOCRIT (BEAKER) (test code = 25.5 % 34.1-44.9 L 411) MEAN CORPUSCULAR VOLUME (BEAKER) 83 fL 79-95 (test code = 753) MEAN CORPUSCULAR HEMOGLOBIN 25.9 pg 25.6-32.2 (BEAKER) (test code = 751) MEAN CORPUSCULAR HEMOGLOBIN CONC 31.4 GM/DL 32.2-35.5 L (BEAKER) (test code = 752) RED CELL DISTRIBUTION WIDTH 16.6 % 11.7-14.4 H (BEAKER) (test code = 412) PLATELET COUNT (BEAKER) (test 261 K/CU MM 150-450 code = 756) MEAN PLATELET VOLUME (BEAKER) 11.5 fL 9.4-12.3 (test code = 754) NUCLEATED RED BLOOD CELLS 0 /100 WBC 0-0 (BEAKER) (test code = 413) NEUTROPHILS RELATIVE PERCENT 52 % (BEAKER) (test code = 429) LYMPHOCYTES RELATIVE PERCENT 26 % (BEAKER) (test code = 430) MONOCYTES RELATIVE PERCENT 14 % (BEAKER) (test code = 431) EOSINOPHILS RELATIVE PERCENT 7 % (BEAKER) (test code = 432) BASOPHILS RELATIVE PERCENT 1 % (BEAKER) (test code = 437) NEUTROPHILS ABSOLUTE COUNT 4.02 K/ L 1.56-6.13 (BEAKER) (test code = 670) LYMPHOCYTES ABSOLUTE COUNT 2.06 K/ L 1.18-3.74 (BEAKER) (test code = 414) MONOCYTES ABSOLUTE COUNT (BEAKER) 1.10 K/ L 0.24-0.36 H (test code = 415) EOSINOPHILS ABSOLUTE COUNT 0.56 K/ L 0.04-0.36 H (BEAKER) (test code = 416) BASOPHILS ABSOLUTE COUNT (BEAKER) 0.04 K/ L 0.01-0.08 (test code = 417) IMMATURE GRANULOCYTES-RELATIVE 0.30 % 0.00-1.00 PERCENT (BEAKER) (test code = 2801) [id number] 21:49:47 Test Item Value Reference Range Interpretation Comments SODIUM (BEAKER) (test code = 381) 134 meq/L 136-145 L POTASSIUM (BEAKER) (test code = 4.8 meq/L 3.5-5.1 379) CHLORIDE (BEAKER) (test code = 382) 106 meq/L 98-107 CO2 (BEAKER) (test code = 355) 22 meq/L 22-29 Double Ending Machine Operator ID - JSCBC W/PLT COUNT & AUTO [id number] 18:53:43 Test Item Value Reference Range Interpretation Comments WHITE BLOOD CELL COUNT (BEAKER) 9.2 K/ L 3.5-10.5 (test code = 775) RED BLOOD CELL COUNT (BEAKER) 3.14 M/ L 3.93-5.22 L (test code = 761) HEMOGLOBIN (BEAKER) (test code = 8.0 GM/DL 11.2-15.7 L 410) HEMATOCRIT (BEAKER) (test code = 26.0 % 34.1-44.9 L 411) MEAN CORPUSCULAR VOLUME (BEAKER) 83 fL 79-95 (test code = 753) MEAN CORPUSCULAR HEMOGLOBIN 25.5 pg 25.6-32.2 L (BEAKER) (test code = 751) MEAN CORPUSCULAR HEMOGLOBIN CONC 30.8 GM/DL 32.2-35.5 L (BEAKER) (test code = 752) RED CELL DISTRIBUTION WIDTH 16.3 % 11.7-14.4 H (BEAKER) (test code = 412) PLATELET COUNT (BEAKER) (test 268 K/CU MM 150-450 code = 756) MEAN PLATELET VOLUME (BEAKER) 10.9 fL 9.4-12.3 (test code = 754) NUCLEATED RED BLOOD CELLS 0 /100 WBC 0-0 (BEAKER) (test code = 413) NEUTROPHILS RELATIVE PERCENT 50 % (BEAKER) (test code = 429) LYMPHOCYTES RELATIVE PERCENT 31 % (BEAKER) (test code = 430) MONOCYTES RELATIVE PERCENT 13 % (BEAKER) (test code = 431) EOSINOPHILS RELATIVE PERCENT 5 % (BEAKER) (test code = 432) BASOPHILS RELATIVE PERCENT 0 % (BEAKER) (test code = 437) NEUTROPHILS ABSOLUTE COUNT 4.61 K/ L 1.56-6.13 (BEAKER) (test code = 670) LYMPHOCYTES ABSOLUTE COUNT 2.81 K/ L 1.18-3.74 (BEAKER) (test code = 414) MONOCYTES ABSOLUTE COUNT (BEAKER) 1.22 K/ L 0.24-0.36 H (test code = 415) EOSINOPHILS ABSOLUTE COUNT 0.48 K/ L 0.04-0.36 H (BEAKER) (test code = 416) BASOPHILS ABSOLUTE COUNT (BEAKER) 0.03 K/ L 0.01-0.08 (test code = 417) IMMATURE GRANULOCYTES-RELATIVE 0.20 % 0.00-1.00 PERCENT (BEAKER) (test code = 2801) SARS-COV2/RT-PCR ([facility])2022-09-21 06:44:16 Test Item Value Reference Range Interpretation Comments SARS-COV2/RT-PCR Negative Negative The SARS-Co V-2 target (test code = nucleic acids a re not [id number]) detected in thi s specimen. Negative result s do not preclude SARS-C oV-2 infection and s hould not be used as the russ e basis for patient managem ent decisions. Nega tive results must be combine d with clinical observ ations, patient history , and epidemiological information. A false negativ e result may occur if a spec imen is improperly efrem ected, transported or handled. This SARS CoV-2 test is a rapid, real-time RT-PC R test intended for th e qualitative detection of nu cleic acid from SARS-CoV-2 in a nasopharyngeal swab specimen collected from individuals suspected of CO VID-19 by their healthcar e provider. This test has been authorized by FDA under an EUA for use by authorized laboratories. This test is only authorized for the duration of the declaration that circumstances exist justifying the authorization of emergency use of in vitro diagnostic tests for detection and/or diagnosis of COVID-19 under Section 564(b)(1) of the Federal Food, Drug and Cosmetic Act, 21 U.S.C. 360bbb-3(b)(1), unless the authorization is terminated or revoked sooner. Fact Sheet for Healthcare Providers: https://www.[employer]/Documents/Xpert%20Xpress%20SARS%20CoV-2/Fact%20Sheets/302-3802%24XZHC-HVT-1%20 HEALTHCARE%20PROVIDERS%20FACT%20SHEET.pdf Fact Sheet for Healthcare Patients: https://www.[employer]/Documents/Xpert%20Xp ress%20SARS%20CoV-2/Fact%20Sheets/302-3801%40AHOW-OMR-9%20PATIENT%20FACT%20SHEET .[id number] 06:42:36 Test Item Value Reference Range Interpretation Comments PHOSPHORUS (BEAKER) (test code = 4.4 mg/dL 2.3-4.7 604) Double Ending Machine Operator ID - PIAYA LCOMPREHENSIVE METABOLIC [id number] 06:42:35 Test Item Value Reference Range Interpretation Comments TOTAL PROTEIN 7.4 gm/dL 6.0-8.3 (BEAKER) (test code = 770) ALBUMIN (BEAKER) 3.4 g/dL 3.5-5.0 L (test code = 1145) ALKALINE 101 U/L 40-150 PHOSPHATASE (BEAKER) (test code = 346) BILIRUBIN TOTAL 0.4 mg/dL 0.2-1.2 (BEAKER) (test code = 377) SODIUM (BEAKER) 136 meq/L 136-145 (test code = 381) POTASSIUM (BEAKER) 5.0 meq/L 3.5-5.1 (test code = 379) CHLORIDE (BEAKER) 105 meq/L 98-107 (test code = 382) CO2 (BEAKER) (test 19 meq/L 22-29 L code = 355) BLOOD UREA 38 mg/dL 7-21 H NITROGEN (BEAKER) (test code = 354) CREATININE 1.04 mg/dL 0.57-1.25 (BEAKER) (test code = 358) GLUCOSE RANDOM 77 mg/dL 70-105 (BEAKER) (test code = 652) CALCIUM (BEAKER) 9.5 mg/dL 8.4-10.2 (test code = 697) AST (SGOT) 31 U/L 5-34 (BEAKER) (test code = 353) ALT (SGPT) 18 U/L 6-55 (BEAKER) (test code = 347) EGFR (BEAKER) 52 Interpretatio n of eGFR (test code = 1092) mL/min/1.[address] age Description sq m Result G1 Margot l or high >=90 G2 Mildly decreased 60-89 G3a Mildl y to moderately 45-5 9 G3b Moderately to s everely 30-44 G4 Severl y decreased 15-29 G5 Kidney failure <15Reported eGF R is based on the CKD-EPI 2020 equation that d oes not use a race coefficientEsti mated GFR is not as accur ate as Creatinine Basilia acosta in predicting glom erular filtration rate . Estimated GFR is not appl icable for dialysis patien ts Double Ending Machine Operator ID - SHWETA [id number] 06:42:35 Test Item Value Reference Range Interpretation Comments MAGNESIUM (BEAKER) (test code = 2.2 mg/dL 1.6-2.6 627) Double Ending Machine Operator ID - SHWETA LCALCIUM, [id number] 06:42:10 Test Item Value Reference Range Interpretation Comments CALCIUM IONIZED (BEAKER) (test 1.22 mmol/L 1.12-1.27 code = 698) PH, BLOOD (BEAKER) (test code = 7.34 1810) B-TYPE NATRIURETIC FACTOR (BNP)2022-09-21 06:39:34 Test Item Value Reference Range Interpretation Comments B-TYPE NATRIURETIC PEPTIDE (BEAKER) 234 pg/mL 0-100 H (test code = 700) Double Ending Machine Operator ID - SHWETA LCBC W/PLT COUNT & AUTO [id number] 06:23:40 Test Item Value Reference Range Interpretation Comments WHITE BLOOD CELL COUNT (BEAKER) 6.9 K/ L 3.5-10.5 (test code = 775) RED BLOOD CELL COUNT (BEAKER) 3.25 M/ L 3.93-5.22 L (test code = 761) HEMOGLOBIN (BEAKER) (test code = 8.3 GM/DL 11.2-15.7 L 410) HEMATOCRIT (BEAKER) (test code = 26.9 % 34.1-44.9 L 411) MEAN CORPUSCULAR VOLUME (BEAKER) 83 fL 79-95 (test code = 753) MEAN CORPUSCULAR HEMOGLOBIN 25.5 pg 25.6-32.2 L (BEAKER) (test code = 751) MEAN CORPUSCULAR HEMOGLOBIN CONC 30.9 GM/DL 32.2-35.5 L (BEAKER) (test code = 752) RED CELL DISTRIBUTION WIDTH 16.5 % 11.7-14.4 H (BEAKER) (test code = 412) PLATELET COUNT (BEAKER) (test 280 K/CU MM 150-450 code = 756) MEAN PLATELET VOLUME (BEAKER) 11.4 fL 9.4-12.3 (test code = 754) NUCLEATED RED BLOOD CELLS 0 /100 WBC 0-0 (BEAKER) (test code = 413) NEUTROPHILS RELATIVE PERCENT 48 % (BEAKER) (test code = 429) LYMPHOCYTES RELATIVE PERCENT 28 % (BEAKER) (test code = 430) MONOCYTES RELATIVE PERCENT 16 % (BEAKER) (test code = 431) EOSINOPHILS RELATIVE PERCENT 7 % (BEAKER) (test code = 432) BASOPHILS RELATIVE PERCENT 0 % (BEAKER) (test code = 437) NEUTROPHILS ABSOLUTE COUNT 3.32 K/ L 1.56-6.13 (BEAKER) (test code = 670) LYMPHOCYTES ABSOLUTE COUNT 1.92 K/ L 1.18-3.74 (BEAKER) (test code = 414) MONOCYTES ABSOLUTE COUNT (BEAKER) 1.12 K/ L 0.24-0.36 H (test code = 415) EOSINOPHILS ABSOLUTE COUNT 0.50 K/ L 0.04-0.36 H (BEAKER) (test code = 416) BASOPHILS ABSOLUTE COUNT (BEAKER) 0.03 K/ L 0.01-0.08 (test code = 417) IMMATURE GRANULOCYTES-RELATIVE 0.30 % 0.00-1.00 PERCENT (BEAKER) (test code = 2801) OSMOLALITY, [id number] 07:29:00 Test Item Value Reference Range Interpretation Comments OSMOLALITY, SERUM (BEAKER) (test 298 mOsm/kg 275-295 H code = 615) [id number] 05:41:15 Test Item Value Reference Range Interpretation Comments MAGNESIUM (BEAKER) (test code = 2.5 mg/dL 1.6-2.6 627) Double Ending Machine Operator ID Shraddha ROCK [id number] 05:41:15 Test Item Value Reference Range Interpretation Comments PHOSPHORUS (BEAKER) (test code = 3.9 mg/dL 2.3-4.7 604) Double Ending Machine Operator ID - SHWETA LCOMPREHENSIVE METABOLIC [id number] 05:41:14 Test Item Value Reference Range Interpretation Comments TOTAL PROTEIN 7.8 gm/dL 6.0-8.3 (BEAKER) (test code = 770) ALBUMIN (BEAKER) 3.6 g/dL 3.5-5.0 (test code = 1145) ALKALINE 105 U/L 40-150 PHOSPHATASE (BEAKER) (test code = 346) BILIRUBIN TOTAL 0.4 mg/dL 0.2-1.2 (BEAKER) (test code = 377) SODIUM (BEAKER) 135 meq/L 136-145 L (test code = 381) POTASSIUM (BEAKER) 4.9 meq/L 3.5-5.1 (test code = 379) CHLORIDE (BEAKER) 104 meq/L 98-107 (test code = 382) CO2 (BEAKER) (test 21 meq/L 22-29 L code = 355) BLOOD UREA 47 mg/dL 7-21 H NITROGEN (BEAKER) (test code = 354) CREATININE 1.25 mg/dL 0.57-1.25 (BEAKER) (test code = 358) GLUCOSE RANDOM 71 mg/dL 70-105 (BEAKER) (test code = 652) CALCIUM (BEAKER) 9.5 mg/dL 8.4-10.2 (test code = 697) AST (SGOT) 26 U/L 5-34 (BEAKER) (test code = 353) ALT (SGPT) 17 U/L 6-55 (BEAKER) (test code = 347) EGFR (BEAKER) 42 Interpretatio n of eGFR (test code = 1092) mL/min/1.[address] age Description sq m Result G1 Margot l or high >=90 G2 Mildly decreased 60-89 G3a Mildl y to moderately 45-5 9 G3b Moderately to s everely 30-44 G4 Severl y decreased 15-29 G5 Kidney failure <15Reported eGF R is based on the CKD-EPI 2021 equation that d oes not use a race coefficientEsti mated GFR is not as accur ate as Creatinine Basilia karla in predicting glom erular filtration rate . Estimated GFR is not appl icable for dialysis patien ts Double Ending Machine Operator ID - PIANA LBUN AND CREATININE [id number] 05:41:14 Test Item Value Reference Range Interpretation Comments BLOOD UREA 47 mg/dL 7-21 H NITROGEN (BEAKER) (test code = 354) CREATININE 1.25 mg/dL 0.57-1.25 (BEAKER) (test code = 358) BUN/CREAT RATIO 38 For a normal individual on (BEAKER) (test a normal diet , the code = reference inter mita for the [id number]) mass ratio rang es between 12:1 and 20:1 ( BUN in mg/dL/creatinin e in mg/dL) EGFR (BEAKER) 42 Interpretation of eGFR (test code = mL/min/1.73 values Stage De scription 1092) sq m Result G1 Margot l or high >=90 G2 Mildly decreased 60-89 G3a Mildl y to moderately 45-5 9 G3b Moderately to s everely 30-44 G4 Severl y decreased 15-29 G5 Kidney failure <15Reported eGF R is based on the CKD-EPI 2021 equation that d oes not use a race coefficientEsti mated GFR is not as accur ate as Creatinine Basilia karla in predicting glom erular filtration rate . Estimated GFR is not appl icable for dialysis patien ts CALCIUM, [id number] 05:23:20 Test Item Value Reference Range Interpretation Comments CALCIUM IONIZED (BEAKER) (test 1.19 mmol/L 1.12-1.27 code = 698) PH, BLOOD (BEAKER) (test code = 7.38 1810) CBC W/PLT COUNT & AUTO [id number] 05:07:15 Test Item Value Reference Range Interpretation Comments WHITE BLOOD CELL COUNT (BEAKER) 7.6 K/ L 3.5-10.5 (test code = 775) RED BLOOD CELL COUNT (BEAKER) 3.65 M/ L 3.93-5.22 L (test code = 761) HEMOGLOBIN (BEAKER) (test code = 9.4 GM/DL 11.2-15.7 L 410) HEMATOCRIT (BEAKER) (test code = 30.0 % 34.1-44.9 L 411) MEAN CORPUSCULAR VOLUME (BEAKER) 82 fL 79-95 (test code = 753) MEAN CORPUSCULAR HEMOGLOBIN 25.8 pg 25.6-32.2 (BEAKER) (test code = 751) MEAN CORPUSCULAR HEMOGLOBIN CONC 31.3 GM/DL 32.2-35.5 L (BEAKER) (test code = 752) RED CELL DISTRIBUTION WIDTH 16.3 % 11.7-14.4 H (BEAKER) (test code = 412) PLATELET COUNT (BEAKER) (test 282 K/CU MM 150-450 code = 756) MEAN PLATELET VOLUME (BEAKER) 11.9 fL 9.4-12.3 (test code = 754) NUCLEATED RED BLOOD CELLS 0 /100 WBC 0-0 (BEAKER) (test code = 413) NEUTROPHILS RELATIVE PERCENT 50 % (BEAKER) (test code = 429) LYMPHOCYTES RELATIVE PERCENT 30 % (BEAKER) (test code = 430) MONOCYTES RELATIVE PERCENT 14 % (BEAKER) (test code = 431) EOSINOPHILS RELATIVE PERCENT 6 % (BEAKER) (test code = 432) BASOPHILS RELATIVE PERCENT 0 % (BEAKER) (test code = 437) NEUTROPHILS ABSOLUTE COUNT 3.78 K/ L 1.56-6.13 (BEAKER) (test code = 670) LYMPHOCYTES ABSOLUTE COUNT 2.25 K/ L 1.18-3.74 (BEAKER) (test code = 414) MONOCYTES ABSOLUTE COUNT (BEAKER) 1.08 K/ L 0.24-0.36 H (test code = 415) EOSINOPHILS ABSOLUTE COUNT 0.45 K/ L 0.04-0.36 H (BEAKER) (test code = 416) BASOPHILS ABSOLUTE COUNT (BEAKER) 0.03 K/ L 0.01-0.08 (test code = 417) IMMATURE GRANULOCYTES-RELATIVE 0.30 % 0.00-1.00 PERCENT (BEAKER) (test code = 2801) U/S, RENAL, [id number] 12:20:00Reason for exam:->Acute kidney injury Should this be performed at the bedside?->Yes [facility] 1935 Sex: FFINAL REPORTPATIENT ID: [id number] U/S, RENAL, COMPLETE CLINICAL HISTORY: Acute kidney injury COMPARISON: None. TECHNIQUE: Real time grayscale and color Doppler imaging of the kidneys and urinary bladder was performed. FINDINGS: Right kidney:Size = 9.4 x 4.5 x 3.9 cmCortical thickness: Mild thinningEchogenicity: NormalCollecting system: No hydronephrosisOther findings: None Left kidney:Size = 8.3 x 4.5 x 4.8 cmCortical thickness: Mild thinningEchogenicity: NormalCollecting system: No hydronephrosisOther findings:None Urinary bladder: Normally distended IMPRESSION: Mild bilateral renal cortical thinning, suggestive of mild renal parenchymal disease. No hydronephrosis. Signed: Devaughn Garcia Verified Date/Time: 09/19/2022 12:20:54 CBC W/PLT COUNT & AUTO [id number] 08:35:21 Test Item Value Reference Range Interpretation Comments WHITE BLOOD CELL COUNT 9.5 K/ L 3.5-10.5 (BEAKER) (test code = 775) RED BLOOD CELL COUNT 3.24 M/ L 3.93-5.22 L (BEAKER) (test code = 761) HEMOGLOBIN (BEAKER) 8.3 GM/DL 11.2-15.7 L (test code = 410) HEMATOCRIT (BEAKER) 26.2 % 34.1-44.9 L (test code = 411) MEAN CORPUSCULAR 81 fL 79-95 Discordant results VOLUME (BEAKER) (test compar ed to previous code = 753) results; clinic al correlation req uired MEAN CORPUSCULAR 25.6 pg 25.6-32.2 HEMOGLOBIN (BEAKER) (test code = 751) MEAN CORPUSCULAR 31.7 GM/DL 32.2-35.5 L HEMOGLOBIN CONC (BEAKER) (test code = 752) RED CELL DISTRIBUTION 15.8 % 11.7-14.4 H WIDTH (BEAKER) (test code = 412) PLATELET COUNT 278 K/CU MM 150-450 (BEAKER) (test code = 756) MEAN PLATELET VOLUME 11.2 fL 9.4-12.3 (BEAKER) (test code = 754) NUCLEATED RED BLOOD 0 /100 WBC 0-0 CELLS (BEAKER) (test code = 413) (CELLAVISION MANUAL DIFF)2022-09-19 08:35:21 Test Item Value Reference Range Interpretation Comments NEUTROPHILS - REL 53 % (CELLAVISION)(BEAKER) (test code = 2816) LYMPHOCYTES - REL 20 % (CELLAVISION)(BEAKER) (test code = 2817) MONOCYTES - REL 16 % (CELLAVISION)(BEAKER) (test code = 2818) EOSINOPHILS - REL 10 % (CELLAVISION)(BEAKER) (test code = 2819) ATYPICAL LYMPHOCYTES - REL 1 % 0-0 H (CELLAVISION)(BEAKER) (test code = 2829) NEUTROPHILS - ABS 5.04 K/ul 1.56-6.13 (CELLAVISION)(BEAKER) (test code = 2830) LYMPHOCYTES - ABS 1.90 K/ul 1.18-3.74 (CELLAVISION)(BEAKER) (test code = 2831) MONOCYTES - ABS 1.52 K/uL 0.24-0.36 H (CELLAVISION)(BEAKER) (test code = 2832) EOSINOPHILS - ABS 0.95 K/uL 0.04-0.36 H (CELLAVISION)(BEAKER) (test code = 2834) ATYPICAL LYMPHOCYTES - ABS 0.10 K/uL 0.00-0.00 H (CELLAVISION)(BEAKER) (test code = 2858) TOTAL COUNTED (BEAKER) (test code 100 = 1351) PLT MORPHOLOGY (BEAKER) (test Normal code = 486) SMUDGE CELLS (BEAKER) (test code Present = 1371) POLYCHROMATOPHILLIC RBCS(BEAKER) 1+ few (test code = 478) HYPOCHROMIA (BEAKER) (test code = 2+ moderate 963) ANISOCYTOSIS (BEAKER) (test code 1+ few = 961) MICROCYTES (BEAKER) (test code = 1+ few 965) POIKILOCYTES (BEAKER) (test code 2+ moderate = 966) SCHISTOCYTES (BEAKER) (test code 1+ few = 765) CARO CELLS (BEAKER) (test code = 2+ moderate 474) PLATELET CONCENTRATION Adequate (CELLAVISION)(BEAKER) (test code = 3438) Double Ending Machine Operator ID - Nitish Dato-onUser comments: Slide comments:TSH/FREE T4 IF [id number] 07:01:04 Test Item Value Reference Range Interpretation Comments THYROID STIMULATING HORMONE 1.445 uIU/mL 0.350-4.940 (BEAKER) (test code = 772) Double Ending Machine Operator ID - MARCOPROTHROMBIN TIME/[id number] 06:41:42 Test Item Value Reference Range Interpretation Comments PROTIME (BEAKER) 14.7 seconds 11.9-14.2 H (test code = 759) INR (BEAKER) (test 1.17 See_Comment [Automat ed message] code = 370) The system [employer] generated this result transmitted ref erence range: <=5.90. The reference range was not used to int erpret this result as normal/abnormal . RECOMMENDED COUMADIN/WARFARIN INR THERAPY RANGESSTANDARD DOSE: 2.0 - 3.0 Includes: PROPHYLAXIS for venous thrombosis, systemic embolization; TREATMENT for venous thrombosis and/or pulmonary embolus.HIGH RISK: Target INR is 2.5-3.5 for patients with mechanical heart valves.[id number] 06:39:36 Test Item Value Reference Range Interpretation Comments MAGNESIUM (BEAKER) (test code = 2.5 mg/dL 1.6-2.6 627) Double Ending Machine Operator ID - [id number] 06:39:36 Test Item Value Reference Range Interpretation Comments PHOSPHORUS (BEAKER) (test code = 3.9 mg/dL 2.3-4.7 604) Double Ending Machine Operator ID - MARCOBUN AND CREATININE [id number] 06:39:35 Test Item Value Reference Range Interpretation Comments BLOOD UREA 52 mg/dL 7-21 H NITROGEN (BEAKER) (test code = 354) CREATININE 1.35 mg/dL 0.57-1.25 H (BEAKER) (test code = 358) BUN/CREAT RATIO 39 For a normal individual on (BEAKER) (test a normal diet , the code = reference inter mita for the [id number]) mass ratio rang es between 12:1 and 20:1 ( BUN in mg/dL/creatinin e in mg/dL) EGFR (BEAKER) 38 Interpretation of eGFR (test code = mL/min/1.73 values Stage De scription 1092) sq m Result G1 Margot l or high >=90 G2 Mildly decreased 60-89 G3a Mildl y to moderately 45-5 9 G3b Moderately to s everely 30-44 G4 Severl y decreased 15-29 G5 Kidney failure <15Reported eGF R is based on the CKD-EPI 2020 equation that d oes not use a race coefficientEsti mated GFR is not as accur ate as Creatinine Basilia acosta in predicting glom erular filtration rate . Estimated GFR is not appl icable for dialysis patien ts COMPREHENSIVE METABOLIC [id number] 06:39:35 Test Item Value Reference Range Interpretation Comments TOTAL PROTEIN 7.4 gm/dL 6.0-8.3 (BEAKER) (test code = 770) ALBUMIN (BEAKER) 3.4 g/dL 3.5-5.0 L (test code = 1145) ALKALINE 93 U/L 40-150 PHOSPHATASE (BEAKER) (test code = 346) BILIRUBIN TOTAL 0.3 mg/dL 0.2-1.2 (BEAKER) (test code = 377) SODIUM (BEAKER) 132 meq/L 136-145 L (test code = 381) POTASSIUM (BEAKER) 4.7 meq/L 3.5-5.1 (test code = 379) CHLORIDE (BEAKER) 102 meq/L 98-107 (test code = 382) CO2 (BEAKER) (test 20 meq/L 22-29 L code = 355) BLOOD UREA 52 mg/dL 7-21 H NITROGEN (BEAKER) (test code = 354) CREATININE 1.35 mg/dL 0.57-1.25 H (BEAKER) (test code = 358) GLUCOSE RANDOM 82 mg/dL 70-105 (BEAKER) (test code = 652) CALCIUM (BEAKER) 9.4 mg/dL 8.4-10.2 (test code = 697) AST (SGOT) 26 U/L 5-34 (BEAKER) (test code = 353) ALT (SGPT) 16 U/L 6-55 (BEAKER) (test code = 347) EGFR (BEAKER) 38 Interpretatio n of eGFR (test code = 1092) mL/min/1.[address] age Description sq m Result G1 Margot l or high >=90 G2 Mildly decreased 60-89 G3a Mildl y to moderately 45- 59 G3b Moderately to s everely 30-44 G4 Severl y decreased 15-29 G5 Kidney failure <15Reported eGF R is based on the CKD-EPI 2020 equation that d oes not use a race coefficientEsti mated GFR is not as accur ate as Creatinine Basilia karla in predicting glom erular filtration rate . Estimated GFR is not appl icable for dialysis patien ts Double Ending Machine Operator ID - MARCOCALCIUM, [id number] 06:21:54 Test Item Value Reference Range Interpretation Comments CALCIUM IONIZED (BEAKER) (test 1.16 mmol/L 1.12-1.27 code = 698) PH, BLOOD (BEAKER) (test code = 7.44 1810) RAD, CHEST, 1 VIEW, NON [id number] 03:08:00Reason for exam:- >pacemaekrShould this be performed at the bedside?->Yes [facility] 1935 Sex: FFINAL REPORT RAD, CHEST, 1 VIEW, NON DEPT INDICATION: pacemaker COMPARISON: 09/14/2022 FINDINGS: Portable frontal view of the chest. 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 Lungs and pleura: No airspace consolidation or effusion. No pneumothorax. Heart and mediastinum: Stable contours. Additional findings: None. Signed: Juan C Barnes MDReport Verified Date/Time: 09/19/2022 03:08:17 PROTEIN, RANDOM [id number] 19:06:39 Test Item Value Reference Range Interpretation Comments PROTEIN, URINE (BEAKER) (test code = < mg/dL 0-14 1569) Double Ending Machine Operator ID - BSCREATININE, RANDOM [id number] 19:05:35 Test Item Value Reference Range Interpretation Comments CREATININE URINE (BEAKER) (test 52.5 mg/dL code = 375) Reference Range: No NormalsOperator ID - BSURINALYSIS W/ [id number] 18:18:02 Test Item Value Reference Range Interpretation Comments COLOR (BEAKER) (test code Light Yellow = 470) CLARITY (BEAKER) (test Hazy code = 469) SPECIFIC GRAVITY UA 1.015 1.001-1.035 (BEAKER) (test code = 468) PH UA (BEAKER) (test code 5.0 5.0-8.0 = 467) PROTEIN UA (BEAKER) (test Negative Negative code = 464) GLUCOSE UA (BEAKER) (test Negative Negative code = 365) KETONES UA (BEAKER) (test Negative Negative code = 371) BILIRUBIN UA (BEAKER) Negative Negative (test code = 462) BLOOD UA (BEAKER) (test Negative Negative code = 461) NITRITE UA (BEAKER) (test Negative Negative code = 465) LEUKOCYTE ESTERASE UA Large Negative A (BEAKER) (test code = 466) UROBILINOGEN UA (BEAKER) 0.2 0.2-1.0 (test code = 463) RBC UA (BEAKER) (test code 2 /HPF = 519) WBC UA (BEAKER) (test code 49 /HPF = 520) BACTERIA (BEAKER) (test Occasional code = 517) MUCUS (BEAKER) (test code Rare = 1574) SQUAMOUS EPITHELIAL 6 /HPF (BEAKER) (test code = 516) SOURCE(BEAKER) (test code Urine, Clean Catch = 2795) Double Ending Machine Operator ID - [auto]Double Ending Machine Operator ID - tech(CELLAVISION MANUAL DIFF)2022-09-18 11:46:28 Test Item Value Reference Range Interpretation Comments NEUTROPHILS - REL 61 % (CELLAVISION)(BEAKER) (test code = 2816) LYMPHOCYTES - REL 17 % (CELLAVISION)(BEAKER) (test code = 2817) MONOCYTES - REL 9 % (CELLAVISION)(BEAKER) (test code = 2818) EOSINOPHILS - REL 10 % (CELLAVISION)(BEAKER) (test code = 2819) BASOPHILS - REL 1 % (CELLAVISION)(BEAKER) (test code = 2820) ATYPICAL LYMPHOCYTES - REL 2 % 0-0 H (CELLAVISION)(BEAKER) (test code = 2829) NEUTROPHILS - ABS 6.28 K/ul 1.56-6.13 H (CELLAVISION)(BEAKER) (test code = 2830) LYMPHOCYTES - ABS 1.75 K/ul 1.18-3.74 (CELLAVISION)(BEAKER) (test code = 2831) MONOCYTES - ABS 0.93 K/uL 0.24-0.36 H (CELLAVISION)(BEAKER) (test code = 2832) EOSINOPHILS - ABS 1.03 K/uL 0.04-0.36 H (CELLAVISION)(BEAKER) (test code = 2834) BASOPHILS - ABS 0.10 K/uL 0.01-0.08 H (CELLAVISION)(BEAKER) (test code = 2835) ATYPICAL LYMPHOCYTES - ABS 0.21 K/uL 0.00-0.00 H (CELLAVISION)(BEAKER) (test code = 2858) TOTAL COUNTED (BEAKER) (test code = 100 1351) WBC MORPHOLOGY (BEAKER) (test code Normal = 487) PLT MORPHOLOGY (BEAKER) (test code Normal = 486) ANISOCYTOSIS (BEAKER) (test code = 1+ few 961) ARTIFACT (CELLAVISION)(BEAKER) Present (test code = 3432) PLATELET CONCENTRATION Adequate (CELLAVISION)(BEAKER) (test code = 3438) Double Ending Machine Operator ID - Terri OverholtUser comments: Slide comments:CBC W/PLT COUNT & AUTO [id number] 11:46:27 Test Item Value Reference Range Interpretation Comments WHITE BLOOD CELL COUNT (BEAKER) 10.3 K/ L 3.5-10.5 (test code = 775) RED BLOOD CELL COUNT (BEAKER) 3.35 M/ L 3.93-5.22 L (test code = 761) HEMOGLOBIN (BEAKER) (test code = 8.6 GM/DL 11.2-15.7 L 410) HEMATOCRIT (BEAKER) (test code = 25.9 % 34.1-44.9 L 411) MEAN CORPUSCULAR VOLUME (BEAKER) 77 fL 79-95 L (test code = 753) MEAN CORPUSCULAR HEMOGLOBIN 25.7 pg 25.6-32.2 (BEAKER) (test code = 751) MEAN CORPUSCULAR HEMOGLOBIN CONC 33.2 GM/DL 32.2-35.5 (BEAKER) (test code = 752) RED CELL DISTRIBUTION WIDTH 15.6 % 11.7-14.4 H (BEAKER) (test code = 412) PLATELET COUNT (BEAKER) (test 279 K/CU MM 150-450 code = 756) MEAN PLATELET VOLUME (BEAKER) 11.3 fL 9.4-12.3 (test code = 754) NUCLEATED RED BLOOD CELLS 0 /100 WBC 0-0 (BEAKER) (test code = 413) [id number] 07:01:21 Test Item Value Reference Range Interpretation Comments FERRITIN (BEAKER) (test code = 30.77 ng/mL 5.00-275.00 361) Double Ending Machine Operator ID - EDGAR [id number] 06:47:19 Test Item Value Reference Range Interpretation Comments MAGNESIUM (BEAKER) (test code = 2.5 mg/dL 1.6-2.6 627) Double Ending Machine Operator ID - [id number] 06:47:19 Test Item Value Reference Range Interpretation Comments PHOSPHORUS (BEAKER) (test code = 4.4 mg/dL 2.3-4.7 604) Double Ending Machine Operator ID - BSCOMPREHENSIVE METABOLIC [id number] 06:47:18 Test Item Value Reference Range Interpretation Comments TOTAL PROTEIN 7.6 gm/dL 6.0-8.3 (BEAKER) (test code = 770) ALBUMIN (BEAKER) 3.6 g/dL 3.5-5.0 (test code = 1145) ALKALINE 104 U/L 40-150 PHOSPHATASE (BEAKER) (test code = 346) BILIRUBIN TOTAL 0.5 mg/dL 0.2-1.2 (BEAKER) (test code = 377) SODIUM (BEAKER) 132 meq/L 136-145 L (test code = 381) POTASSIUM (BEAKER) 4.0 meq/L 3.5-5.1 (test code = 379) CHLORIDE (BEAKER) 100 meq/L 98-107 (test code = 382) CO2 (BEAKER) (test 21 meq/L 22-29 L code = 355) BLOOD UREA 56 mg/dL 7-21 H NITROGEN (BEAKER) (test code = 354) CREATININE 1.64 mg/dL 0.57-1.25 H (BEAKER) (test code = 358) GLUCOSE RANDOM 91 mg/dL 70-105 (BEAKER) (test code = 652) CALCIUM (BEAKER) 9.5 mg/dL 8.4-10.2 (test code = 697) AST (SGOT) 22 U/L 5-34 (BEAKER) (test code = 353) ALT (SGPT) 13 U/L 6-55 (BEAKER) (test code = 347) EGFR (BEAKER) 30 Interpretatio n of eGFR (test code = 1092) mL/min/1.[address] age Description sq m Result G1 Margot l or high >=90 G2 Mildly decreased 60-89 G3a Mildl y to moderately 45-5 9 G3b Moderately to s everely 30-44 G4 Severl y decreased 15-29 G5 Kidney failure <15Reported eGF R is based on the CKD-EPI 2020 equation that d oes not use a race coefficientEsti mated GFR is not as accur ate as Creatinine Basilia acosta in predicting glom erular filtration rate . Estimated GFR is not appl icable for dialysis patien ts Double Ending Machine Operator ID - BSCALCIUM, [id number] 06:45:36 Test Item Value Reference Range Interpretation Comments CALCIUM IONIZED (BEAKER) (test 1.18 mmol/L 1.12-1.27 code = 698) PH, BLOOD (BEAKER) (test code = 7.39 1810) IRON, TIBC, % SAT. (WITHOUT FERRITIN)2022-09-18 06:44:54 Test Item Value Reference Range Interpretation Comments IRON (BEAKER) (test code = 547) 38.0 ug/dL 40.0-160.0 L TOTAL IRON BINDING CAPACITY 351 ug/dL 250-450 (BEAKER) (test code = 769) IRON % SATURATION (2) (BEAKER) 11 % 20-55 L (test code = 2590) Double Ending Machine Operator ID - EDGAR GRETICULOCYTE [id number] 06:25:08 Test Item Value Reference Range Interpretation Comments RETICULOCYTE COUNT PCT (BEAKER) (test 2.4 % 0.5-1.7 H code = 575) Double Ending Machine Operator ID - [id number] NITROGEN, RANDOM [id number] 13:38:55 Test Item Value Reference Range Interpretation Comments UREA NITROGEN URINE (BEAKER) (test 437 mg/dL code = 538) Reference Range: No NormalsOperator ID - PIAYA LCREATININE, RANDOM URINE 2022-09-17 13:38:54 Test Item Value Reference Range Interpretation Comments CREATININE URINE (BEAKER) (test 64.3 mg/dL code = 375) Reference Range: No NormalsOperator ID - PIAYA LSODIUM, RANDOM [id number] 13:38:54 Test Item Value Reference Range Interpretation Comments SODIUM URINE (BEAKER) (test code = 58 meq/L 243) Reference Range: No NormalsOperator ID - PIAYA [id number] 11:44:16 Test Item Value Reference Range Interpretation Comments ALBUMIN (BEAKER) (test 3.8 g/dL 3.5-5.0 Speci men slightly code = 1145) hemolyzed Double Ending Machine Operator ID - DESTINEE(CELLAVISION MANUAL DIFF)2022-09-17 08:20:26 Test Item Value Reference Range Interpretation Comments NEUTROPHILS - REL 60 % (CELLAVISION)(BEAKER) (test code = 2816) LYMPHOCYTES - REL 30 % (CELLAVISION)(BEAKER) (test code = 2817) MONOCYTES - REL 7 % (CELLAVISION)(BEAKER) (test code = 2818) EOSINOPHILS - REL 3 % (CELLAVISION)(BEAKER) (test code = 2819) NEUTROPHILS - ABS 7.20 K/ul 1.56-6.13 H (CELLAVISION)(BEAKER) (test code = 2830) LYMPHOCYTES - ABS 3.60 K/ul 1.18-3.74 (CELLAVISION)(BEAKER) (test code = 2831) MONOCYTES - ABS 0.84 K/uL 0.24-0.36 H (CELLAVISION)(BEAKER) (test code = 2832) EOSINOPHILS - ABS 0.36 K/uL 0.04-0.36 (CELLAVISION)(BEAKER) (test code = 2834) TOTAL COUNTED (BEAKER) (test code = 100 1351) WBC MORPHOLOGY (BEAKER) (test code Normal = 487) PLT MORPHOLOGY (BEAKER) (test code Normal = 486) POLYCHROMATOPHILLIC RBCS(BEAKER) 1+ few (test code = 478) HYPOCHROMIA (BEAKER) (test code = 1+ few 963) ANISOCYTOSIS (BEAKER) (test code = 1+ few 961) ARTIFACT (CELLAVISION)(BEAKER) Present (test code = 3432) PLATELET CONCENTRATION Adequate (CELLAVISION)(BEAKER) (test code = 3438) Double Ending Machine Operator ID - Donita Bond comments: Slide comments: PLT: Plt normal BASIC METABOLIC [id number] 06:55:33 Test Item Value Reference Range Interpretation Comments SODIUM (BEAKER) 133 meq/L 136-145 L (test code = 381) POTASSIUM 4.4 meq/L 3.5-5.1 Specimen slight ly (BEAKER) (test hemolyzed code = 379) CHLORIDE (BEAKER) 100 meq/L 98-107 (test code = 382) CO2 (BEAKER) 25 meq/L 22-29 (test code = 355) BLOOD UREA 46 mg/dL 7-21 H NITROGEN (BEAKER) (test code = 354) CREATININE 1.74 mg/dL 0.57-1.25 H Specimen slight ly (BEAKER) (test hemolyzed code = 358) GLUCOSE RANDOM 95 mg/dL 70-105 (BEAKER) (test code = 652) CALCIUM (BEAKER) 9.7 mg/dL 8.4-10.2 (test code = 697) EGFR (BEAKER) 28 Interpretatio n of eGFR (test code = mL/min/1.73 values Stage De scription 1092) sq m Result G1 Margot l or high >=90 G2 Mildly decreased 60-89 G3a Mild ly to moderately 45-5 9 G3b Moderately to s everely 30-44 G4 Severl y decreased 15-29 G5 Kidney failure <15Reported eGF R is based on the CKD-EPI 2020 equation that d oes not use a race coefficientEsti mated GFR is not as accur ate as Creatinine Basilia karla in predicting glom erular filtration rate . Estimated GFR is not appl icable for dialysis patien ts Double Ending Machine Operator ID Shraddha HEBERT [id number] 06:53:22 Test Item Value Reference Range Interpretation Comments MAGNESIUM (BEAKER) 2.5 mg/dL 1.6-2.6 Specimen slightly (test code = 627) hemolyzed Double Ending Machine Operator ID Shraddha HEBERT [id number] 06:53:22 Test Item Value Reference Range Interpretation Comments PHOSPHORUS (BEAKER) 5.1 mg/dL 2.3-4.7 H Specimen slightly (test code = 604) hemolyzed Double Ending Machine Operator BHUPENDRA HEBERT WCBC W/PLT COUNT & AUTO [id number] 05:52:58 Test Item Value Reference Range Interpretation Comments WHITE BLOOD CELL COUNT (BEAKER) 12.0 K/ L 3.5-10.5 H (test code = 775) RED BLOOD CELL COUNT (BEAKER) 3.78 M/ L 3.93-5.22 L (test code = 761) HEMOGLOBIN (BEAKER) (test code = 9.7 GM/DL 11.2-15.7 L 410) HEMATOCRIT (BEAKER) (test code = 30.0 % 34.1-44.9 L 411) MEAN CORPUSCULAR VOLUME (BEAKER) 79 fL 79-95 (test code = 753) MEAN CORPUSCULAR HEMOGLOBIN 25.7 pg 25.6-32.2 (BEAKER) (test code = 751) MEAN CORPUSCULAR HEMOGLOBIN CONC 32.3 GM/DL 32.2-35.5 (BEAKER) (test code = 752) RED CELL DISTRIBUTION WIDTH 16.0 % 11.7-14.4 H (BEAKER) (test code = 412) PLATELET COUNT (BEAKER) (test 326 K/CU MM 150-450 code = 756) MEAN PLATELET VOLUME (BEAKER) 11.6 fL 9.4-12.3 (test code = 754) NUCLEATED RED BLOOD CELLS 0 /100 WBC 0-0 (BEAKER) (test code = 413) CALCIUM, [id number] 05:49:58 Test Item Value Reference Range Interpretation Comments CALCIUM IONIZED (BEAKER) (test 1.15 mmol/L 1.12-1.27 code = 698) PH, BLOOD (BEAKER) (test code = 7.40 1810) B-TYPE NATRIURETIC FACTOR (BNP)2022-09-16 20:13:37 Test Item Value Reference Range Interpretation Comments B-TYPE NATRIURETIC PEPTIDE (BEAKER) 160 pg/mL 0-100 H (test code = 700) Double Ending Machine Operator ID - [id number] 04:37:24 Test Item Value Reference Range Interpretation Comments MAGNESIUM (BEAKER) (test code = 1.8 mg/dL 1.6-2.6 627) Double Ending Machine Operator ID - PIAYA [id number] 04:37:24 Test Item Value Reference Range Interpretation Comments PHOSPHORUS (BEAKER) (test code = 4.1 mg/dL 2.3-4.7 604) Double Ending Machine Operator ID - PIAYA LBASIC METABOLIC [id number] 04:37:23 Test Item Value Reference Range Interpretation Comments SODIUM (BEAKER) 134 meq/L 136-145 L (test code = 381) POTASSIUM 4.0 meq/L 3.5-5.1 (BEAKER) (test code = 379) CHLORIDE (BEAKER) 99 meq/L 98-107 (test code = 382) CO2 (BEAKER) 23 meq/L 22-29 (test code = 355) BLOOD UREA 28 mg/dL 7-21 H NITROGEN (BEAKER) (test code = 354) CREATININE 1.30 mg/dL 0.57-1.25 H (BEAKER) (test code = 358) GLUCOSE RANDOM 117 mg/dL 70-105 H (BEAKER) (test code = 652) CALCIUM (BEAKER) 10.0 mg/dL 8.4-10.2 (test code = 697) EGFR (BEAKER) 40 Interpretati on of eGFR (test code = mL/min/1.73 values Stage De scription 1092) sq m Result G1 Margot l or high >=90 G2 Mildly decreased 60-89 G3a Mildl y to moderately 45-5 9 G3b Moderately to s everely 30-44 G4 Severl y decreased 15-29 G5 Kidney failure <15Reported eGF R is based on the CKD-EPI 2020 equation that d oes not use a race coefficientEsti mated GFR is not as accur ate as Creatinine Basilia karla in predicting glom erular filtration rate . Estimated GFR is not appl icable for dialysis patien ts Double Ending Machine Operator ID - PIAYA LCBC W/PLT COUNT & AUTO [id number] 03:48:23 Test Item Value Reference Range Interpretation Comments WHITE BLOOD CELL COUNT (BEAKER) 11.0 K/ L 3.5-10.5 H (test code = 775) RED BLOOD CELL COUNT (BEAKER) 3.98 M/ L 3.93-5.22 (test code = 761) HEMOGLOBIN (BEAKER) (test code = 10.0 GM/DL 11.2-15.7 L 410) HEMATOCRIT (BEAKER) (test code = 31.8 % 34.1-44.9 L 411) MEAN CORPUSCULAR VOLUME (BEAKER) 80 fL 79-95 (test code = 753) MEAN CORPUSCULAR HEMOGLOBIN 25.1 pg 25.6-32.2 L (BEAKER) (test code = 751) MEAN CORPUSCULAR HEMOGLOBIN CONC 31.4 GM/DL 32.2-35.5 L (BEAKER) (test code = 752) RED CELL DISTRIBUTION WIDTH 15.8 % 11.7-14.4 H (BEAKER) (test code = 412) PLATELET COUNT (BEAKER) (test 318 K/CU MM 150-450 code = 756) MEAN PLATELET VOLUME (BEAKER) 11.7 fL 9.4-12.3 (test code = 754) NUCLEATED RED BLOOD CELLS 0 /100 WBC 0-0 (BEAKER) (test code = 413) NEUTROPHILS RELATIVE PERCENT 70 % (BEAKER) (test code = 429) LYMPHOCYTES RELATIVE PERCENT 17 % (BEAKER) (test code = 430) MONOCYTES RELATIVE PERCENT 11 % (BEAKER) (test code = 431) EOSINOPHILS RELATIVE PERCENT 2 % (BEAKER) (test code = 432) BASOPHILS RELATIVE PERCENT 0 % (BEAKER) (test code = 437) NEUTROPHILS ABSOLUTE COUNT 7.67 K/ L 1.56-6.13 H (BEAKER) (test code = 670) LYMPHOCYTES ABSOLUTE COUNT 1.88 K/ L 1.18-3.74 (BEAKER) (test code = 414) MONOCYTES ABSOLUTE COUNT (BEAKER) 1.15 K/ L 0.24-0.36 H (test code = 415) EOSINOPHILS ABSOLUTE COUNT 0.21 K/ L 0.04-0.36 (BEAKER) (test code = 416) BASOPHILS ABSOLUTE COUNT (BEAKER) 0.02 K/ L 0.01-0.08 (test code = 417) IMMATURE GRANULOCYTES-RELATIVE 0.40 % 0.00-1.00 PERCENT (BEAKER) (test code = 2801) CALCIUM, [id number] 03:35:18 Test Item Value Reference Range Interpretation Comments CALCIUM IONIZED (BEAKER) (test 1.13 mmol/L 1.12-1.27 code = 698) PH, BLOOD (BEAKER) (test code = 7.43 1810) HIGH SENSITIVITY TROPONIN [id number] 08:28:29 Test Item Value Reference Range Interpretation Comments HIGH SENSITIVITY 37 pg/ml See_Comment H [Automated message] TROPONIN I (test code = The system which [id number]) generated this result transmitted ref erence range: <=17. Th e reference range was not used to int erpret this result as normal/abnormal . Double Ending Machine Operator ID - EDGAR GThe [employer] STAT High Sensitivity Troponin-I results should be used in conjunction with other diagnostic information such as ECG, clinical observations and information, and patient symptoms to aid in the diagnosis of PR.[id number] 08:23:50 Test Item Value Reference Range Interpretation Comments MAGNESIUM (BEAKER) 2.0 mg/dL 1.6-2.6 Specimen slightly (test code = 627) hemolyzed Double Ending Machine Operator ID - EDGAR GBASIC METABOLIC [id number] 08:23:30 Test Item Value Reference Range Interpretation Comments SODIUM (BEAKER) 135 meq/L 136-145 L (test code = 381) POTASSIUM 5.3 meq/L 3.5-5.1 H Specimen slight ly (BEAKER) (test hemolyzed code = 379) CHLORIDE (BEAKER) 104 meq/L 98-107 (test code = 382) CO2 (BEAKER) 23 meq/L 22-29 (test code = 355) BLOOD UREA 39 mg/dL 7-21 H NITROGEN (BEAKER) (test code = 354) CREATININE 1.22 mg/dL 0.57-1.25 Specimen slight ly (BEAKER) (test hemolyzed code = 358) GLUCOSE RANDOM 86 mg/dL 70-105 (BEAKER) (test code = 652) CALCIUM (BEAKER) 9.8 mg/dL 8.4-10.2 (test code = 697) EGFR (BEAKER) 43 Interpretatio n of eGFR (test code = mL/min/1.73 values Stage De scription 1092) sq m Result G1 Margot l or high >=90 G2 Mildly decreased 60-89 G3a Mildl y to moderately 45-5 9 G3b Moderately to s everely 30-44 G4 Severl y decreased 15-29 G5 Kidney failure <15Reported eGF R is based on the CKD-EPI 2020 equation that d oes not use a race coefficientEsti mated GFR is not as accur ate as Creatinine Basilia acosta in predicting glom erular filtration rate . Estimated GFR is not appl icable for dialysis patien ts Double Ending Machine Operator ID - EDGAR GRAD, CHEST, 1 VIEW, NON [id number] 03:11:00Reason for exam:->IRREGULAR HEART BEATShould this be performed at the bedside?->Yes [facility] : 1935 Sex: FFINAL REPORTPATIENT ID: [id number] RAD, CHEST, 1 VIEW, NON DEPT CLINICAL STATEMENT: Irregular heartbeat. COMPARISON: Irregular heartbeat. FINDINGS: Heart is moderately enlarged. Aortic arch is mildly calcified. There is no focal lung consolidation or pleural effusion. No evidence of pulmonary edema or pneumothorax.IMPRESSION: No acute cardiopulmonary disease. Signed: Axel Oden Verified Date/Time: 09/14/2022 03:11:20 SARS-COV2/RT-PCR ([facility])2022-09-14 02:49:00 Test Item Value Reference Range Interpretation Comments SARS-COV2/RT-PCR Negative Negative The SARS-Co V-2 target (test code = nucleic acids a re not [id number]) detected in thi s specimen. Negative result s do not preclude SARS-C oV-2 infection and s hould not be used as the russ e basis for patient managem ent decisions. Nega tive results must be combine d with clinical observ ations, patient history , and epidemiological information. A false negativ e result may occur if a spec imen is improperly efrem ected, transported or handled. This SARS CoV-2 test is a rapid, real-bren e RT-PCR test intended for th e qualitative detection of nu cleic acid from SARS-CoV-2 in a nasopharyngeal swab specimen collected from individuals suspected of CO VID-19 by their healthcar e provider. This test has been authorized by FDA under an EUA for use by authorized laboratories. This test is only authorized for the duration of the declaration that circumstances exist justifying the authorization of emergency use of in vitro diagnostic tests for detection and/or diagnosis of COVID-19 under Section 564(b)(1) of the Federal Food, Drug and Cosmetic Act, 21 U.S.C. 360bbb-3(b)(1), unless the authorization is terminated or revoked sooner. Fact Sheet for Healthcare Providers: https://www.cepheid.co m/Documents/Xpert%20Xpress%20SARS%20CoV-2/Fact%20Sheets/302-0853%19QHIQ-LSP-6%20 HEALTHCARE%20PROVIDERS%20FACT%20SHEET.pdf Fact Sheet for Healthcare Patients: https://www.[employer]/Documents/Xpert%20Xp ress%20SARS%20CoV-2/Fact%20Sheets/302-3801%86UKUH-VLU-1%20PATIENT%20FACT%20SHEET .pdfHIGH SENSITIVITY TROPONIN [id number] 02:25:22 Test Item Value Reference Range Interpretation Comments HIGH SENSITIVITY 31 pg/ml See_Comment H [Automated message] TROPONIN I (test code = The system which [id number]) generated this result transmitted ref erence range: <=17. Th e reference range was not used to int erpret this result as normal/abnormal . Double Ending Machine Operator ID - EDGAR GThe [employer] STAT High Sensitivity Troponin-I results should be used in conjunction with other diagnostic information such as ECG, clinical observations and information, and patient symptoms to aid in the diagnosis of PR.BASIC METABOLIC [id number] 02:20:02 Test Item Value Reference Range Interpretation Comments SODIUM (BEAKER) 133 meq/L 136-145 L (test code = 381) POTASSIUM 5.2 meq/L 3.5-5.1 H Specimen slight ly (BEAKER) (test hemolyzed code = 379) CHLORIDE (BEAKER) 103 meq/L 98-107 (test code = 382) CO2 (BEAKER) 21 meq/L 22-29 L (test code = 355) BLOOD UREA 37 mg/dL 7-21 H NITROGEN (BEAKER) (test code = 354) CREATININE 1.23 mg/dL 0.57-1.25 Specimen slight ly (BEAKER) (test hemolyzed code = 358) GLUCOSE RANDOM 98 mg/dL 70-105 (BEAKER) (test code = 652) CALCIUM (BEAKER) 9.5 mg/dL 8.4-10.2 (test code = 697) EGFR (BEAKER) 43 Interpretatio n of eGFR (test code = mL/min/1.73 values Stage D escription 1092) sq m Result G1 Margot l or high >=90 G2 Mildly decreased 60-89 G3a Mildl y to moderately 45-5 9 G3b Moderately to s everely 30-44 G4 Severl y decreased 15-29 G5 Kidney failure <15Reported eGF R is based on the CKD-EPI 2020 equation that d oes not use a race coefficientEsti mated GFR is not as accur ate as Creatinine Basilia acosta in predicting glom erular filtration rate . Estimated GFR is not appl icable for dialysis patien ts Double Ending Machine Operator ID - [id number] 02:19:41 Test Item Value Reference Range Interpretation Comments MAGNESIUM (BEAKER) 2.1 mg/dL 1.6-2.6 Specimen slightly (test code = 627) hemolyzed Double Ending Machine Operator ID - ADMINCBC W/PLT COUNT & AUTO [id number] 02:00:18 Test Item Value Reference Range Interpretation Comments WHITE BLOOD CELL COUNT (BEAKER) 7.8 K/ L 3.5-10.5 (test code = 775) RED BLOOD CELL COUNT (BEAKER) 3.54 M/ L 3.93-5.22 L (test code = 761) HEMOGLOBIN (BEAKER) (test code = 8.9 GM/DL 11.2-15.7 L 410) HEMATOCRIT (BEAKER) (test code = 28.5 % 34.1-44.9 L 411) MEAN CORPUSCULAR VOLUME (BEAKER) 81 fL 79-95 (test code = 753) MEAN CORPUSCULAR HEMOGLOBIN 25.1 pg 25.6-32.2 L (BEAKER) (test code = 751) MEAN CORPUSCULAR HEMOGLOBIN CONC 31.2 GM/DL 32.2-35.5 L (BEAKER) (test code = 752) RED CELL DISTRIBUTION WIDTH 15.9 % 11.7-14.4 H (BEAKER) (test code = 412) PLATELET COUNT (BEAKER) (test 344 K/CU MM 150-450 code = 756) MEAN PLATELET VOLUME (BEAKER) 11.7 fL 9.4-12.3 (test code = 754) NUCLEATED RED BLOOD CELLS 0 /100 WBC 0-0 (BEAKER) (test code = 413) NEUTROPHILS RELATIVE PERCENT 48 % (BEAKER) (test code = 429) LYMPHOCYTES RELATIVE PERCENT 35 % (BEAKER) (test code = 430) MONOCYTES RELATIVE PERCENT 13 % (BEAKER) (test code = 431) EOSINOPHILS RELATIVE PERCENT 4 % (BEAKER) (test code = 432) BASOPHILS RELATIVE PERCENT 1 % (BEAKER) (test code = 437) NEUTROPHILS ABSOLUTE COUNT 3.75 K/ L 1.56-6.13 (BEAKER) (test code = 670) LYMPHOCYTES ABSOLUTE COUNT 2.71 K/ L 1.18-3.74 (BEAKER) (test code = 414) MONOCYTES ABSOLUTE COUNT (BEAKER) 1.00 K/ L 0.24-0.36 H (test code = 415) EOSINOPHILS ABSOLUTE COUNT 0.27 K/ L 0.04-0.36 (BEAKER) (test code = 416) BASOPHILS ABSOLUTE COUNT (BEAKER) 0.04 K/ L 0.01-0.08 (test code = 417) IMMATURE GRANULOCYTES-RELATIVE 0.30 % 0.00-1.00 PERCENT (BEAKER) (test code = 2801)
[2023-01-14] MEDS ORDERED: DIPHENHYDRAMINE 25 MG TAB/CAP PO PRN (18:00)
[2023-01-14] MEDS ORDERED: ACETAMINOPHEN 325 MG TABLET PO PRN (18:00)
[2023-01-14] MEDS ORDERED: ONDANSETRON 4 MG (ODT) TAB PO PRN (18:00)
[2023-01-14] MEDS ORDERED: LOPERAMIDE HCL 2 MG CAPSULE PO PRN (18:00)
[2023-01-14] MEDS ORDERED: NACHLORIDE 0.45% 1,000 ML IV SCH (18:00)
[2023-01-14 20:34] LABS: Absolute Lymphocytes (CBC) 1.7 K/uL (0.7-4.9); Lymphocytes % 20.4 % (15.3-44.8); MCV 89.7 fL (80-100); MPV 8.9 fL (7.6-11.3); RBC Red Blood Cell Count 4.47 M/uL (3.86-4.86)
[2023-01-14 20:45] LABS: Protime INR 1.07
[2023-01-14] MEDS: ENOXAPARIN 40 MG/0.4 ML SQ SCH (20:47)
[2023-01-14] MEDS ORDERED: PNEUMOCOCCAL VACCINE 0.5 ML IMVAC ONE (21:00)
[2023-01-14] MEDS ORDERED: TRIAMCINOLONE ACETONIDE TOP PRN (21:04)
[2023-01-14 21:21] LABS: Albumin 3.6 g/dL (3.4-5.0); Bilirubin Direct 0.1 mg/dL (0-0.2); Bilirubin Indirect, Calculated 0.5 mg/dL (0.2-0.8); Bilirubin Total 0.6 mg/dL (0.2-1.0); Phosphorus 3.2 mg/dL (2.5-4.9); Protein, Total 9.5 g/dL (6.4-8.2); Thyroid Stimulating Hormone 1.65 uIU/mL (0.358-3.740)
[2023-01-14 21:22] LABS: Potassium 5.8 mEq/L (3.5-5.1)
[2023-01-14] MEDS: NA CHLORIDE 0.9% 1,000 ML IV SCH (21:56)
--- NOTE | 2023-01-14 22:34 | RAD REPORT ---
EXAM DESCRIPTION: CT - Abdomen Pelvis W Contrast - 01/14/2023 10:19 pm CLINICAL HISTORY: Abdominal pain COMPARISON: none. TECHNIQUE: Computed axial tomography of the abdomen pelvis was obtained. 95 cc Isovue-300 was admini stered intravenously. Oral contrast was not requested which limits evaluation of bowel and appendix All CT scans are performed using dose optimization technique as appropriate and may include automated exposure control or mA/KV adjustment according to patient size. FINDINGS: Some images are degraded by patient motion artifact The liver, spleen, pancreas, adrenal and kidneys appear grossly normal Cholecystectomy There is no evidence of diverticulitis. Normal appendix. 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
--- NOTE | 2023-01-14 22:35 | RAD REPORT ---
EXAM DESCRIPTION: Cat Tabares And Merissa (2 Views)01/14/2023 7:59 pm CLINICAL HISTORY: Chest pain COMPARISON: August 2022 FINDINGS: The lungs appear clear of acute infiltrate. The heart is mildly to moderately enlarged. Postsurgical changes involve the chest. Pacemaker leads are present.
[2023-01-15] MEDS: PROPYLENE GLYCOL OPTH SCH ×2 (08:32→21:00)
[2023-01-15] MEDS: POLYETHYLENE GLYCOL 400 OPTH SCH ×2 (08:32→21:00)
[2023-01-15] MEDS: HOME MED 1 EA UNK (Galantamine Hbr [Galantamine Er] 8 MG Cap24h.Pel) PO SCH ×2 (08:32→21:00)
[2023-01-15] MEDS: ENOXAPARIN 40 MG/0.4 ML SQ SCH (08:33)
[2023-01-15] MEDS: levETIRAcetam 500 MG TAB PO SCH ×2 (08:34→22:56)
[2023-01-15] MEDS: PANTOPRAZOLE 40MG TABLET PO SCH (08:34)
[2023-01-15] MEDS: CLOPIDOGREL 75 MG TABLET PO SCH (08:34)
[2023-01-15] MEDS: MEMANTINE HCL 10 MG TABLET PO SCH ×2 (08:35→22:56)
[2023-01-15] MEDS: ASPIRIN EC 81 MG TAB PO SCH (08:35)
[2023-01-15] MEDS: VENLAFAXINE HCL XR 75 MG CAP PO SCH (08:35)
[2023-01-15] MEDS: METOPROLOL XL 25 MG TAB PO SCH (08:36)
[2023-01-15 08:46] LABS: Hematocrit 36.1 % (36.0-45.0); Lymphocytes % 21.7 % (15.3-44.8); MCV 89.6 fL (80-100); MPV 8.3 fL (7.6-11.3); RBC Red Blood Cell Count 4.03 M/uL (3.86-4.86)
[2023-01-15 09:00] LABS: Magnesium 2.1 mg/dL (1.6-2.4); Potassium 4.1 mEq/L (3.5-5.1)
[2023-01-15] MEDS ORDERED: BUMETANIDE 1 MG TABLET PO SCH (09:00)
[2023-01-15] MEDS ORDERED: SPIRONOLACTONE 100 MG TAB PO SCH (09:00)
[2023-01-15] MEDS: ACETAMINOPHEN 500 MG TAB PO PRN (15:30)
[2023-01-15] MEDS: LIDOCAINE 4% PATCH TOP SCH (16:16)
[2023-01-15] MEDS: NA CHLORIDE 0.9% 1,000 ML IV SCH (17:37)
[2023-01-15 18:32] VITALS: BMI 33.4
--- NOTE | 2023-01-15 20:42 | P.PN ---
Subjective Date of Service: 01/15/23 Chief Complaint: SHE IS LITTLE BETTER. Subjective: Improving SHE HAS HAD SMALL BM AFTER TWO ENEMAS. WEAKNESS IS SAME. SHE WILL NEED PT. Review of Systems 10-point ROS is otherwise unremarkable General: Weakness Physical Examination - Vital Signs Temperature: 98.0 F Blood Pressure: 157/72 Pulse: 62 Respirations: 16 Pulse Ox (%): 100 - Physical Exam General: Oriented x2, Mild distress HEENT: Atraumatic, PERRLA, EOMI Neck: Supple, JVD not distended Respiratory: Clear to auscultation bilaterally, Normal air movement Cardiovascular: Regular rate/rhythm, Normal S1 S2 Gastrointestinal: Normal bowel sounds, No tenderness Musculoskeletal: No tenderness Integumentary: No rashes Neurological: Normal speech, Normal tone, Normal affect Lymphatics: No axilla or inguinal lymphadenopathy - Studies Laboratory Data (last 24 hrs) 01/15/23 08:37: Sodium 122 L, Potassium 4.1 D, BUN 21 H, Creatinine 0.89, Glucose 95, Magnesium 2.1 01/15/23 08:37: WBC 9.20, Hgb 12.1 D, Hct 36.1, Plt Count 283 01/14/23 20:17: Sodium 120 L, Potassium 5.8 H, BUN 30 H, Creatinine 1.30 H, Glucose 135 H, Phosphorus 3.2, Magnesium 2.0, Total Bilirubin 0.6, AST 48 H, ALT 32, Alkaline Phosphatase 125 H 01/14/23 20:17: PT 11.8, INR 1.07, APTT 42.7 H 01/14/23 20:17: WBC 8.40, Hgb 13.5, Hct 40.0, Plt Count 260 Microbiology Data (last 24 hrs): 01/14/23 20:17 Blood - Blood Anaerobic Blood Culture - Final Medications List Reviewed: Yes Assessment And Plan - Current Problems (Diagnosis) (1) Hyponatremia Current Visit: Yes Status: Acute Plan: SHE HAS THIS BEFORE. [place] [facility] CHANGED DIURETIC AND DOUBLED IT. THIS MADE SODIUM WORSE. THIS WAS BY HAIM OF THE PRINTING MACHINE OPERATOR IN [place]. I ASKED THEM TO STAY LOCAL AND ASK ME BEFORE ANY CHANGES ARE MADE IN MEDS. THEY KNEW ABOUT IT BEFORE. IT IS COMING UP TO 122. (2) Constipation Current Visit: Yes Status: Chronic Plan: CONTINUE ENEMA. Q6H (3) General weakness Current Visit: Yes Status: Acute (4) Altered mental status Current Visit: No Status: Acute
[2023-01-15] MEDS: ONDANSETRON 4 MG/2 ML VIAL IV PRN (22:57)
[2023-01-16] MEDS: PROPYLENE GLYCOL OPTH SCH ×2 (09:00→20:46)
[2023-01-16] MEDS: POLYETHYLENE GLYCOL 400 OPTH SCH ×2 (09:00→20:46)
[2023-01-16] MEDS: HOME MED 1 EA UNK (Galantamine Hbr [Galantamine Er] 8 MG Cap24h.Pel) PO SCH ×2 (09:00→20:46)
[2023-01-16 09:34] LABS: Potassium 4.6 mEq/L (3.5-5.1)
[2023-01-16] MEDS: CLOPIDOGREL 75 MG TABLET PO SCH (10:11)
[2023-01-16] MEDS: NA CHLORIDE 0.9% 1,000 ML IV SCH (10:11)
[2023-01-16] MEDS: LIDOCAINE 4% PATCH TOP SCH (10:11)
[2023-01-16] MEDS: ASPIRIN EC 81 MG TAB PO SCH (10:11)
[2023-01-16] MEDS: levETIRAcetam 500 MG TAB PO SCH ×2 (10:12→20:45)
[2023-01-16] MEDS: VENLAFAXINE HCL XR 75 MG CAP PO SCH (10:12)
[2023-01-16] MEDS: ENOXAPARIN 40 MG/0.4 ML SQ SCH (10:12)
[2023-01-16] MEDS: PANTOPRAZOLE 40MG TABLET PO SCH (10:13)
[2023-01-16] MEDS: MEMANTINE HCL 10 MG TABLET PO SCH ×2 (10:13→20:46)
[2023-01-16] MEDS: METOPROLOL XL 25 MG TAB PO SCH (10:17)
--- NOTE | 2023-01-16 10:58 | PN ---
Date of Progress Note: 01/16/2023 Mrs. Watson had came in with renal failure. Echo is still pending. Her creatinine is improved to 5 .46. She is presently on aspirin, Norvasc, Lipitor, heparin, hydralazine, and clonidine. Blood pres sure is better. She is in sinus rhythm. She is breathing better, less edema. We will continue her present regimen. We will see what the echocardiogram shows. Continue Nephrology followup. We will continue to see her. WANDA/NORA Voice ID: [id number] Report ID: [id number]
[2023-01-16] MEDS: ONDANSETRON 4 MG/2 ML VIAL IV PRN (11:39)
[2023-01-16] MEDS: ONDANSETRON 4 MG (ODT) TAB PO PRN (14:10)
[2023-01-16] MEDS ORDERED: PROMETHAZINE INJ 25 MG/ML AMP IM PRN (15:04)
[2023-01-16] MEDS ORDERED: LIDOCAINE 4% PATCH TOP SCH (15:42)
--- NOTE | 2023-01-16 16:12 | RAD REPORT ---
EXAM DESCRIPTION: RAD - Abdomen W Erect - 01/16/2023 3:55 pm CLINICAL HISTORY: nausea and vomiting COMPARISON: No comparisons TECHNIQUE: Single AP view of the abdomen. FINDINGS: Nonobstructive bowel gas pattern. No air-fluid levels, free air, or pneumatosis. No suspic ious calcifications. Mild stool retention predominantly along the ascending colon. No significant bony abnormality. IMPRESSION: Nonobstructive bowel gas pattern. Mild stool retention.
[2023-01-16] MEDS: POLYETHYL GLY 3350 17 GM/DOSE PO PRN ×2 (20:47→23:00)
[2023-01-16] MEDS: MAGNESIUM HYDROXIDE 8% 30 ML PO SCH (20:52)
--- NOTE | 2023-01-16 22:01 | P.PN ---
Subjective Date of Service: 01/16/23 Chief Complaint: SHE IS LITTLE BETTER. SHE HAS HAD SMALL BM AFTER TWO ENEMAS. WEAKNESS IS SAME. SHE WILL NEED PT. THIS AM SHE LOOKED BETTER, THIS AFTERNOON SHE STARTED TO VOMIT. Review of Systems 10-point ROS is otherwise unremarkable General: Weakness Physical Examination - Vital Signs Temperature: 96.8 F Blood Pressure: 175/62 Pulse: 65 Respirations: 16 Pulse Ox (%): 97 - Physical Exam General: Oriented x3, Mild distress, Moderate distress HEENT: Atraumatic, PERRLA, EOMI Neck: Supple, JVD not distended Respiratory: Clear to auscultation bilaterally, Normal air movement Cardiovascular: Regular rate/rhythm, Normal S1 S2 Gastrointestinal: Normal bowel sounds, No tenderness Musculoskeletal: No tenderness Integumentary: No rashes Neurological: Normal speech, Normal tone, Normal affect Lymphatics: No axilla or inguinal lymphadenopathy - Studies Laboratory Data (last 24 hrs) 01/16/23 09:13: Sodium 123 L, Potassium 4.6, BUN 16, Creatinine 0.88, Glucose 150 H Microbiology Data (last 24 hrs): 01/14/23 20:17 Blood - Blood Anaerobic Blood Culture - Final Medications List Reviewed: Yes Assessment And Plan - Current Problems (Diagnosis) (1) Hyponatremia Current Visit: Yes Status: Acute Plan: SHE HAS THIS BEFORE. [place] [facility] CHANGED DIURETIC AND DOUBLED IT. THIS MADE SODIUM WORSE. THIS WAS BY PA OF THE [employer] ROOM TELLER IN [place]. I ASKED THEM TO STAY LOCAL AND ASK ME BEFORE ANY CHANGES ARE MADE IN MEDS. THEY KNEW ABOUT IT BEFORE. IT IS COMING UP TO 122. (2) Constipation Current Visit: Yes Status: Chronic Plan: CONTINUE ENEMA. Q6H NO SIGNIFICANT RESPONSE TO ENEMAS YET MILK OF MAGENESI AND MIRALAX ORALLY POSSIBLEY MOM NOT TOLERATED. (3) General weakness Current Visit: Yes Status: Acute (4) Altered mental status Current Visit: No Status: Acute
--- NOTE | 2023-01-16 22:43 | CON ---
Date of Consultation: 01/16/2023 Reason: Abdominal pain. History Of Present Illness: Patient is an 87-year-old female with abdominal distention, bloating, be lching. No bowel movement for 5 days. She had her medications adjusted by a development editor in [place] and has hyponatremia currently and she had a CAT scan done, which showed moderate amount of stool. She was given enemas and small stool production. Dr. Frost wanted to make sure that there were no cyr rgical issues with this patient. She is awake, alert, passing gas. Pain is better. She was just gi anish enema with no results about an hour ago. No sore throat, runny nose, cough, headaches, or dizzin ess. No chest pain. No fever or chills. Review of Systems: Otherwise unremarkable. Past Medical History: Hypertension, osteoarthritis, hyponatremia AFib, congestive heart failure. Medications: Reviewed. Patient is on Plavix. Allergies: INCLUDE LATEX, CEPHALEXIN, PHENYTOIN. PATIENT CURRENTLY DOES NOT SMOKE OR DRINK. Family History: Noncontributory. Physical Examination: Vital Signs: Stable. She is currently afebrile. General: She is awake, alert, oriented x2. Head and Neck: No masses. Chest: Clear. Heart: S1, S2. Abdomen: Soft, nondistended. No peritonitis. Minimal tenderness. No rebound, rigidity, or guardin g. Extremities: Adequately perfused. Nontender. Neuro: Nonfocal. Laboratory Data: Reviewed. White count is normal. There is no left shift. Chemistry is significan t for sodium of 123 today, which is being corrected slowly. Abdominal x-ray and CAT scan reviewed. Essentially, patient had stool on the right side of the colon currently and no findings for acute haley gical event. Assessment: An 87-year-old female with multiple medical problems with constipation, hyponatremia, ab dominal pain. Recommendations: We will see if the enemas help tonight. If not, patient may need laxatives such as lactulose or magnesium citrate. I will discuss with Dr. Frost in the morning regarding which option is better with liquids currently and advance as tolerated to a high-fiber diet and a bowel regimen w ith stool softeners, Metamucil or MiraLAX. There is no need for any acute surgical intervention of t his patient at this time. /MODL Voice ID: [id number] Report ID: [id number]
[2023-01-17 02:50] LABS: Hematocrit 34.3 % (36.0-45.0); Lymphocytes % 27.7 % (15.3-44.8); MCV 90.5 fL (80-100); MPV 8.2 fL (7.6-11.3); RBC Red Blood Cell Count 3.79 M/uL (3.86-4.86)
[2023-01-17 03:13] LABS: Potassium 4.7 mEq/L (3.5-5.1)
[2023-01-17] MEDS: NA CHLORIDE 0.9% 1,000 ML IV SCH (05:37)
[2023-01-17] MEDS: HOME MED 1 EA UNK (Galantamine Hbr [Galantamine Er] 8 MG Cap24h.Pel) PO SCH ×2 (09:00→20:26)
[2023-01-17] MEDS: POLYETHYLENE GLYCOL 400 OPTH SCH ×2 (09:00→20:26)
[2023-01-17] MEDS: PROPYLENE GLYCOL OPTH SCH ×2 (09:00→20:26)
[2023-01-17] MEDS: CLOPIDOGREL 75 MG TABLET PO SCH (10:16)
[2023-01-17] MEDS: levETIRAcetam 500 MG TAB PO SCH ×2 (10:16→20:30)
[2023-01-17] MEDS: PROMETHAZINE INJ 25 MG/ML AMP IV PRN ×2 (10:16→14:14)
[2023-01-17] MEDS: MAGNESIUM HYDROXIDE 8% 30 ML PO SCH ×2 (10:16→20:28)
[2023-01-17] MEDS: ASPIRIN EC 81 MG TAB PO SCH (10:16)
[2023-01-17] MEDS: METOPROLOL XL 25 MG TAB PO SCH (10:16)
[2023-01-17] MEDS: MEMANTINE HCL 10 MG TABLET PO SCH ×2 (10:17→20:29)
[2023-01-17] MEDS: PANTOPRAZOLE 40MG TABLET PO SCH (10:17)
[2023-01-17] MEDS: VENLAFAXINE HCL XR 75 MG CAP PO SCH (10:17)
[2023-01-17] MEDS: ENOXAPARIN 40 MG/0.4 ML SQ SCH (10:17)
[2023-01-17] MEDS: LIDOCAINE 4% PATCH TOP SCH (10:17)
[2023-01-17] MEDS: ONDANSETRON 4 MG (ODT) TAB PO PRN (13:23)
[2023-01-17] MEDS: ONDANSETRON 4 MG/2 ML VIAL IV PRN (13:27)
[2023-01-17] MEDS: LACTULOSE 20 GM/30 ML UCUP PO PRN (14:42)
--- NOTE | 2023-01-17 15:40 | PN ---
Date of Progress Note: 01/17/2023 Subjective: Patient early this morning was feeling well with no pain. Had not had a bowel movement in the last 12 hours or so and I was going to check with Dr. Frost regarding the use of laxative to h elp her with her constipation. However, the nurse contacted me stating that she was having pain and requesting something other than enema to help her. We ordered lactulose and will see how that helps her. Objective: Vital Signs: Stable. She is afebrile. Abdomen: Soft, nondistended, no peritonitis. Nontender. Laboratory Data: Reviewed. Assessment: Abdominal pain secondary to constipation. Recommendations: To try lactulose and to see if that helps. If not, we may have to try something st ronger, mineral oil and magnesium citrate are options that we will consider after discussion with Dr. Frost. No need for any acute surgical intervention at this time. /MODL Voice ID: [id number] Report ID: [id number]
[2023-01-17] MEDS: cloNIDine HCL 0.1 MG TAB PO PRN (16:33)
--- NOTE | 2023-01-17 16:38 | P.PN ---
Subjective Date of Service: 01/17/23 Chief Complaint: SHE IS LITTLE BETTER. Subjective: No new changes SHE HAS HAD SMALL BM AFTER TWO ENEMAS. WEAKNESS IS SAME. SHE WILL NEED PT. THIS AM SHE LOOKED BETTER, THIS AFTERNOON SHE STARTED TO VOMIT. SHE FEELS BETTER BUT NOT HAD ANY MAJOR BM YET. WHEN WE FED HER SHE HAD NAUSEA AND VOMITING SO I CALLED IN DR. SENA. Review of Systems 10-point ROS is otherwise unremarkable General: Weakness, Malaise Physical Examination - Vital Signs Temperature: 97.9 F Blood Pressure: 197/86 Pulse: 68 Respirations: 12 Pulse Ox (%): 95 - Physical Exam General: Oriented x3, Mild distress HEENT: Atraumatic, PERRLA, EOMI Neck: Supple, JVD not distended Respiratory: Clear to auscultation bilaterally, Normal air movement Cardiovascular: Regular rate/rhythm, Normal S1 S2 Gastrointestinal: Normal bowel sounds, No tenderness Musculoskeletal: No tenderness Integumentary: No rashes Neurological: Normal speech, Normal tone, Normal affect Lymphatics: No axilla or inguinal lymphadenopathy - Studies Laboratory Data (last 24 hrs) 01/17/23 02:39: Sodium 126 L, Potassium 4.7, BUN 17, Creatinine 0.98, Glucose 88 01/17/23 02:39: WBC 7.20, Hgb 11.4 L, Hct 34.3 L, Plt Count 283 Medications List Reviewed: Yes Assessment And Plan - Current Problems (Diagnosis) (1) Hyponatremia Current Visit: Yes Status: Acute Plan: SHE HAS THIS BEFORE. [place] [employer] CHANGED DIURETIC AND DOUBLED IT. THIS MADE SODIUM WORSE. THIS WAS BY PA OF THE [employer] SUPERVISOR IN [place]. I ASKED THEM TO STAY LOCAL AND ASK ME BEFORE ANY CHANGES ARE MADE IN MEDS. THEY KNEW ABOUT IT BEFORE. IT IS COMING UP TO 122. SODIUM IS 126 NOW. WILL FU DAILY. (2) Constipation Current Visit: Yes Status: Chronic Plan: CONTINUE ENEMA. Q6H NO SIGNIFICANT RESPONSE TO ENEMAS YET MILK OF MAGENESI AND MIRALAX ORALLY POSSIBLEY MOM NOT TOLERATED. DR. SENA ORDERED LACTULOSE SHE HAD NO RESPONSE TO ENEMAS, MOM OR MIRALAX. (3) General weakness Current Visit: Yes Status: Acute (4) Altered mental status Current Visit: No Status: Acute Plan: LOT BETTER NOW
[2023-01-17] MEDS ORDERED: HYDRALAZINE HCL 20 MG/ML VIAL IV PRN (19:12)
[2023-01-18] MEDS: NA CHLORIDE 0.9% 1,000 ML IV SCH (01:48)
[2023-01-18] MEDS: cloNIDine HCL 0.1 MG TAB PO PRN (04:11)
[2023-01-18 06:28] LABS: Absolute Lymphocytes (CBC) 1.8 K/uL (0.7-4.9); Hematocrit 32.6 % (36.0-45.0); Lymphocytes % 25.8 % (15.3-44.8); MCV 90.9 fL (80-100); MPV 8.7 fL (7.6-11.3); RBC Red Blood Cell Count 3.59 M/uL (3.86-4.86)
--- NOTE | 2023-01-18 06:39 | P.PN ---
Date of Service: 01/18/23 Subjective: Patient had multiple bowel movements and feels better Objective: Vital signs stable, afebrile Abdomen: Benign Assessment: Constipation improving Plan: Per medical service. Reconsult surgery as needed. Bowel regimen recommended. CC:
[2023-01-18 06:45] LABS: Potassium 4.4 mEq/L (3.5-5.1)
[2023-01-18] MEDS: POLYETHYLENE GLYCOL 400 OPTH SCH ×2 (09:00→20:30)
[2023-01-18] MEDS: PROPYLENE GLYCOL OPTH SCH ×2 (09:00→20:30)
[2023-01-18] MEDS: HOME MED 1 EA UNK (Galantamine Hbr [Galantamine Er] 8 MG Cap24h.Pel) PO SCH ×2 (09:00→20:30)
[2023-01-18] MEDS: LACTULOSE 20 GM/30 ML UCUP PO PRN (09:11)
[2023-01-18] MEDS: ENOXAPARIN 40 MG/0.4 ML SQ SCH (09:11)
[2023-01-18] MEDS: CLOPIDOGREL 75 MG TABLET PO SCH (09:12)
[2023-01-18] MEDS: levETIRAcetam 500 MG TAB PO SCH ×2 (09:12→20:28)
[2023-01-18] MEDS: METOPROLOL XL 25 MG TAB PO SCH (09:12)
[2023-01-18] MEDS: ASPIRIN EC 81 MG TAB PO SCH (09:12)
[2023-01-18] MEDS: MEMANTINE HCL 10 MG TABLET PO SCH ×2 (09:13→20:29)
[2023-01-18] MEDS: PANTOPRAZOLE 40MG TABLET PO SCH (09:13)
[2023-01-18] MEDS: VENLAFAXINE HCL XR 75 MG CAP PO SCH (09:13)
[2023-01-18] MEDS: LIDOCAINE 4% PATCH TOP SCH (09:13)
[2023-01-18] MEDS: MAGNESIUM HYDROXIDE 8% 30 ML PO SCH ×2 (09:14→20:29)
[2023-01-18] MEDS: PROMETHAZINE INJ 25 MG/ML AMP IV PRN ×2 (09:14→16:55)
[2023-01-18] MEDS ORDERED: CLONIDINE 0.2 MG/PATCH TD SCH (09:15)
[2023-01-18] MEDS: ONDANSETRON 4 MG (ODT) TAB PO PRN (15:49)
--- NOTE | 2023-01-18 21:07 | P.PN ---
Subjective Date of Service: 01/18/23 Chief Complaint: SHE HAD FEW LARGE BMS SINCE LAST NIGHT Subjective: Improving SHE HAS IMPROVED WITH LARGE BM NOW WITH LACTULOSE MOM AND MIRALAX. SHE IS STABLE. SHE NEEDS TO DO PT WE WILL RESTRICT WATER INTAKE SHE HAS HAD SIADH BEFORE AND IS RECURRENT. Physical Examination - Vital Signs Temperature: 95.6 F Blood Pressure: 153/73 Pulse: 59 Respirations: 12 Pulse Ox (%): 93 - Studies Laboratory Data (last 24 hrs) 01/18/23 05:23: Sodium 125 L, Potassium 4.4, BUN 12, Creatinine 0.70, Glucose 88 01/18/23 05:23: WBC 7.00, Hgb 11.1 L, Hct 32.6 L, Plt Count 290 Medications List Reviewed: Yes Assessment And Plan - Current Problems (Diagnosis) (1) Hyponatremia Current Visit: Yes Status: Acute Plan: SHE HAS THIS BEFORE. [place] [facility] CHANGED DIURETIC AND DOUBLED IT. THIS MADE SODIUM WORSE. THIS WAS BY PA OF THE NET MANAGER IN [place]. I ASKED THEM TO STAY LOCAL AND ASK ME BEFORE ANY CHANGES ARE MADE IN MEDS. THEY KNEW ABOUT IT BEFORE. IT IS COMING UP TO 122. SODIUM IS 126 NOW. WILL FU DAILY. (2) Constipation Current Visit: Yes Status: Chronic Plan: CONTINUE ENEMA. Q6H NO SIGNIFICANT RESPONSE TO ENEMAS YET MILK OF MAGENESI AND MIRALAX ORALLY POSSIBLEY MOM NOT TOLERATED. DR. SENA ORDERED LACTULOSE SHE HAD NO RESPONSE TO ENEMAS, MOM OR MIRALAX. (3) General weakness Current Visit: Yes Status: Acute (4) Altered mental status Current Visit: No Status: Acute Plan: LOT BETTER NOW
[2023-01-18 23:50] LABS: Vitamin D 1,25-Dihydroxy Total 17 pg/mL (18-72); Vitamin D,1,25-OH2, D2 <8 pg/mL
[2023-01-19 04:39] LABS: Absolute Lymphocytes (CBC) 1.9 K/uL (0.7-4.9); Hematocrit 34.9 % (36.0-45.0); MCV 89.7 fL (80-100); MPV 8.1 fL (7.6-11.3); RBC Red Blood Cell Count 3.89 M/uL (3.86-4.86)
[2023-01-19 04:53] LABS: Potassium 4.7 mEq/L (3.5-5.1)
[2023-01-19] MEDS: cloNIDine HCL 0.1 MG TAB PO PRN (05:35)
[2023-01-19] MEDS: PROPYLENE GLYCOL OPTH SCH ×2 (09:00→20:01)
[2023-01-19] MEDS: POLYETHYLENE GLYCOL 400 OPTH SCH ×2 (09:00→20:01)
[2023-01-19] MEDS: HOME MED 1 EA UNK (Galantamine Hbr [Galantamine Er] 8 MG Cap24h.Pel) PO SCH ×2 (09:00→20:00)
[2023-01-19] MEDS: LIDOCAINE 4% PATCH TOP SCH (09:40)
[2023-01-19] MEDS: MEMANTINE HCL 10 MG TABLET PO SCH ×2 (09:41→20:00)
[2023-01-19] MEDS: ASPIRIN EC 81 MG TAB PO SCH (09:41)
[2023-01-19] MEDS: PANTOPRAZOLE 40MG TABLET PO SCH (09:42)
[2023-01-19] MEDS: levETIRAcetam 500 MG TAB PO SCH ×2 (09:42→20:00)
[2023-01-19] MEDS: VENLAFAXINE HCL XR 75 MG CAP PO SCH (09:42)
[2023-01-19] MEDS: METOPROLOL XL 25 MG TAB PO SCH (09:42)
[2023-01-19] MEDS: ENOXAPARIN 40 MG/0.4 ML SQ SCH (09:48)
[2023-01-19] MEDS: MAGNESIUM HYDROXIDE 8% 30 ML PO SCH ×2 (09:49→20:00)
[2023-01-19] MEDS: CLOPIDOGREL 75 MG TABLET PO SCH (09:50)
[2023-01-19] MEDS: PROMETHAZINE INJ 25 MG/ML AMP IV PRN ×2 (10:01→19:52)
--- NOTE | 2023-01-19 11:32 | P.PN ---
Subjective Date of Service: 01/19/23 Chief Complaint: SHE IS NAUSEOUS TODAY. Subjective: C/O voiced SHE HAS IMPROVED WITH LARGE BM NOW WITH LACTULOSE MOM AND MIRALAX. SHE IS STABLE. SHE NEEDS TO DO PT WE WILL RESTRICT WATER INTAKE SHE HAS HAD SIADH BEFORE AND IS RECURRENT. SHE HAS HAD BM A FEW TIMES NOW. SHE IS NAUSEOUS TODAY. Review of Systems 10-point ROS is otherwise unremarkable General: Weakness Physical Examination - Vital Signs Temperature: 95.2 F Blood Pressure: 124/69 Pulse: 60 Respirations: 14 Pulse Ox (%): 96 - Physical Exam General: Oriented x3, Mild distress, Moderate distress HEENT: Atraumatic, PERRLA, EOMI Neck: Supple, JVD not distended Respiratory: Clear to auscultation bilaterally, Normal air movement Cardiovascular: Regular rate/rhythm, Normal S1 S2 Gastrointestinal: Normal bowel sounds, No tenderness Musculoskeletal: No tenderness Integumentary: No rashes Neurological: Normal speech, Normal tone, Normal affect Lymphatics: No axilla or inguinal lymphadenopathy - Studies Laboratory Data (last 24 hrs) 01/19/23 04:31: Sodium 124 L, Potassium 4.7, BUN 11, Creatinine 0.77, Glucose 87 01/19/23 04:31: WBC 7.40, Hgb 11.6 L, Hct 34.9 L, Plt Count 301 Medications List Reviewed: Yes Assessment And Plan - Current Problems (Diagnosis) (1) Hyponatremia Current Visit: Yes Status: Acute Plan: SHE HAS THIS BEFORE. [place] [facility] CHANGED DIURETIC AND DOUBLED IT. THIS MADE SODIUM WORSE. THIS WAS BY PA OF THE PETAL CUTTER IN [place]. I ASKED THEM TO STAY LOCAL AND ASK ME BEFORE ANY CHANGES ARE MADE IN MEDS. THEY KNEW ABOUT IT BEFORE. IT IS COMING UP TO 122. SODIUM IS 126 NOW. WILL FU DAILY. URINE REPORTS ARE PENDING. CONTINUE FLUID RESTRICTION. WILL AVOID HIGH SALT TABLETS HER BP IS ALREADY HIGH. HER BASELINE SODIUM IS ABOUT 130. (2) Constipation Current Visit: Yes Status: Chronic Plan: CONTINUE ENEMA. Q6H NO SIGNIFICANT RESPONSE TO ENEMAS YET MILK OF MAGENESI AND MIRALAX ORALLY POSSIBLEY MOM NOT TOLERATED. DR. SENA ORDERED LACTULOSE SHE HAD NO RESPONSE TO ENEMAS, MOM OR MIRALAX. (3) General weakness Current Visit: Yes Status: Acute (4) Altered mental status Current Visit: No Status: Acute Plan: LOT BETTER NOW
[2023-01-19 11:36] LABS: Specific Gravity 1.006 (1.005-1.030); Transitional Epithelial <5 /HPF (None Seen); Urine Bacteria None Seen /HPF (<20); Urine Bilirubin NEGATIVE (Negative); Urine Blood Negative (Negative); Urine Clarity Clear (Clear); Urine Color Colorless (Yellow); Urine Glucose NEGATIVE (Negative); Urine Protein NEGATIVE (Negative); Urine RBC <5 /HPF (None Seen); Urine Urobilinogen Normal (Normal)
[2023-01-19] MEDS: ONDANSETRON 4 MG/2 ML VIAL IV PRN (15:42)
[2023-01-19] MEDS: ONDANSETRON 4 MG (ODT) TAB PO PRN (16:06)
[2023-01-19] MEDS: ACETAMINOPHEN 500 MG TAB PO PRN (17:57)
[2023-01-20 03:41] LABS: Hematocrit 31.2 % (36.0-45.0); Lymphocytes % 30.4 % (15.3-44.8); MCV 88.7 fL (80-100); MPV 8.6 fL (7.6-11.3); RBC Red Blood Cell Count 3.51 M/uL (3.86-4.86)
[2023-01-20 03:59] LABS: Potassium 5.3 mEq/L (3.5-5.1); Uric Acid 4.5 mg/dL (2.6-6.0)
[2023-01-20] MEDS: NA CHLORIDE 0.9% 1,000 ML IV SCH (06:53)
[2023-01-20] MEDS ORDERED: SODIUM CHLORIDE 0.9% 10ML INJ IV ONE (09:00)
[2023-01-20] MEDS: DEMECLOCYCLINE HCL 150 MG TABLET PO SCH ×3 (09:00→20:30)
[2023-01-20] MEDS ORDERED: COSYNTROPIN 0.25 MG VIAL IV ONE (09:00)
[2023-01-20] MEDS: HOME MED 1 EA UNK (Galantamine Hbr [Galantamine Er] 8 MG Cap24h.Pel) PO SCH ×2 (09:00→20:28)
[2023-01-20] MEDS: VENLAFAXINE HCL XR 75 MG CAP PO SCH (12:32)
[2023-01-20] MEDS: ENOXAPARIN 40 MG/0.4 ML SQ SCH (12:32)
[2023-01-20] MEDS: levETIRAcetam 500 MG TAB PO SCH ×2 (12:32→20:29)
[2023-01-20] MEDS: ASPIRIN EC 81 MG TAB PO SCH (12:32)
[2023-01-20] MEDS: ONDANSETRON 4 MG/2 ML VIAL IV PRN (12:32)
[2023-01-20] MEDS: METOPROLOL XL 25 MG TAB PO SCH (12:33)
[2023-01-20] MEDS: PANTOPRAZOLE 40MG TABLET PO SCH (12:33)
[2023-01-20] MEDS: CLOPIDOGREL 75 MG TABLET PO SCH (12:33)
[2023-01-20] MEDS: MEMANTINE HCL 10 MG TABLET PO SCH ×2 (12:34→20:30)
--- NOTE | 2023-01-20 13:00 | P.PN ---
Subjective Date of Service: 01/20/23 Chief Complaint: SHE IS NAUSEOUS TODAY. Subjective: Improving SHE FEELS BETTER. ABLE TO TOLERATE FOOD. BMARE STABLE NOW. Review of Systems 10-point ROS is otherwise unremarkable General: Weakness Physical Examination - Vital Signs Temperature: 97.4 F Blood Pressure: 138/57 Pulse: 60 Respirations: 16 Pulse Ox (%): 96 - Physical Exam General: Oriented x3, Mild distress HEENT: Atraumatic, PERRLA, EOMI Neck: Supple, JVD not distended Respiratory: Clear to auscultation bilaterally, Normal air movement Cardiovascular: Regular rate/rhythm, Normal S1 S2 Gastrointestinal: Normal bowel sounds, No tenderness Musculoskeletal: No tenderness Integumentary: No rashes Neurological: Normal speech, Normal tone, Normal affect Lymphatics: No axilla or inguinal lymphadenopathy - Studies Laboratory Data (last 24 hrs) 01/20/23 02:40: WBC 6.60, Hgb 10.8 L, Hct 31.2 L, Plt Count 284 01/20/23 02:40: Sodium 126 L, Potassium 5.3 H, BUN 31 H, Creatinine 1.07 H, Glucose 91, Uric Acid 4.5 Microbiology Data (last 24 hrs): 01/14/23 20:17 Blood - Blood Aerobic Blood Culture - Final No growth in 5 days. 01/14/23 20:17 Blood - Blood Anaerobic Blood Culture - Final Medications List Reviewed: Yes Assessment And Plan - Current Problems (Diagnosis) (1) Hyponatremia Current Visit: Yes Status: Acute Plan: SHE HAS THIS BEFORE. [place] [facility] CHANGED DIURETIC AND DOUBLED IT. THIS MADE SODIUM WORSE. THIS WAS BY PA OF THE APPRAISAL MANAGER IN [place]. I ASKED THEM TO STAY LOCAL AND ASK ME BEFORE ANY CHANGES ARE MADE IN MEDS. THEY KNEW ABOUT IT BEFORE. IT IS COMING UP TO 122. SODIUM IS 126 NOW. WILL FU DAILY. URINE REPORTS ARE PENDING. CONTINUE FLUID RESTRICTION. WILL AVOID HIGH SALT TABLETS HER BP IS ALREADY HIGH. HER BASELINE SODIUM IS ABOUT 130. ACTH TEST IS NORMAL DAILY LAB SHE HAS SIGNS OF DEHYDRATION ON LAB START NS AT 50 MG PER HOUR. CONTINUE ORAL FEEDING. (2) Constipation Current Visit: Yes Status: Chronic Plan: CONTINUE ENEMA. Q6H NO SIGNIFICANT RESPONSE TO ENEMAS YET MILK OF MAGENESI AND MIRALAX ORALLY POSSIBLEY MOM NOT TOLERATED. DR. SENA ORDERED LACTULOSE SHE HAD NO RESPONSE TO ENEMAS, MOM OR MIRALAX. (3) General weakness Current Visit: Yes Status: Acute (4) Altered mental status Current Visit: No Status: Acute Plan: LOT BETTER NOW
[2023-01-20] MEDS: LIDOCAINE 4% PATCH TOP SCH (14:25)
[2023-01-20] MEDS: PROMETHAZINE INJ 25 MG/ML AMP IV PRN (18:56)
[2023-01-20] MEDS: TAMSULOSIN 0.4 MG SR CAP PO SCH (20:30)
[2023-01-21 04:01] LABS: Absolute Lymphocytes (CBC) 2.4 K/uL (0.7-4.9); Lymphocytes % 28.2 % (15.3-44.8); MCV 90.6 fL (80-100); MPV 8.8 fL (7.6-11.3); RBC Red Blood Cell Count 3.31 M/uL (3.86-4.86)
[2023-01-21 04:16] LABS: Potassium 5.4 mEq/L (3.5-5.1)
[2023-01-21] MEDS: NA CHLORIDE 0.9% 1,000 ML IV SCH ×3 (05:37→21:17)
[2023-01-21] MEDS: HOME MED 1 EA UNK (Galantamine Hbr [Galantamine Er] 8 MG Cap24h.Pel) PO SCH ×2 (09:00→21:00)
[2023-01-21] MEDS: levETIRAcetam 500 MG TAB PO SCH ×2 (10:15→21:18)
[2023-01-21] MEDS: METOPROLOL XL 25 MG TAB PO SCH (10:16)
[2023-01-21] MEDS: MEMANTINE HCL 10 MG TABLET PO SCH ×2 (10:16→21:19)
[2023-01-21] MEDS: VENLAFAXINE HCL XR 75 MG CAP PO SCH (10:17)
[2023-01-21] MEDS: CLOPIDOGREL 75 MG TABLET PO SCH (10:17)
[2023-01-21] MEDS: PANTOPRAZOLE 40MG TABLET PO SCH (10:17)
[2023-01-21] MEDS: LIDOCAINE 4% PATCH TOP SCH (10:17)
[2023-01-21] MEDS: ASPIRIN EC 81 MG TAB PO SCH (10:17)
[2023-01-21] MEDS: ENOXAPARIN 40 MG/0.4 ML SQ SCH (10:17)
[2023-01-21] MEDS: PROMETHAZINE INJ 25 MG/ML AMP IV PRN (10:18)
[2023-01-21] MEDS: TAMSULOSIN 0.4 MG SR CAP PO SCH (21:18)
[2023-01-21] MEDS: MAGNESIUM HYDROXIDE 8% 30 ML PO SCH (21:18)
--- NOTE | 2023-01-21 21:39 | P.PN ---
Subjective Date of Service: 01/21/23 Chief Complaint: NO BM TODAY. FAMILY WORRIED. Subjective: Improving SHE FEELS BETTER. ABLE TO TOLERATE FOOD. BMARE STABLE NOW. SHE IS BETTER, SHE IS TOLERATING FOOD. SHE IS WORKING WITH PT. Review of Systems 10-point ROS is otherwise unremarkable General: Weakness Physical Examination - Vital Signs Temperature: 97 F Blood Pressure: 163/69 Pulse: 61 Respirations: 16 Pulse Ox (%): 95 - Physical Exam General: Oriented x3, Mild distress HEENT: Atraumatic, PERRLA, EOMI Neck: Supple, JVD not distended Respiratory: Clear to auscultation bilaterally, Normal air movement Cardiovascular: Regular rate/rhythm, Normal S1 S2 Gastrointestinal: Normal bowel sounds, No tenderness Musculoskeletal: No tenderness Integumentary: No rashes Neurological: Normal speech, Normal tone, Normal affect Lymphatics: No axilla or inguinal lymphadenopathy - Studies Laboratory Data (last 24 hrs) 01/21/23 02:24: Sodium 128 L, Potassium 5.4 H, BUN 37 H, Creatinine 1.31 H, Glucose 81 01/21/23 02:24: WBC 8.40, Hgb 10.1 L, Hct 30.0 L, Plt Count 294 Medications List Reviewed: Yes Assessment And Plan - Current Problems (Diagnosis) (1) Hyponatremia Current Visit: Yes Status: Acute Plan: SHE HAS THIS BEFORE. [place] [employer] CHANGED DIURETIC AND DOUBLED IT. THIS MADE SODIUM WORSE. THIS WAS BY PA OF THE ROAD SUPERVISOR IN [place]. I ASKED THEM TO STAY LOCAL AND ASK ME BEFORE ANY CHANGES ARE MADE IN MEDS. THEY KNEW ABOUT IT BEFORE. IT IS COMING UP TO 122. SODIUM IS 126 NOW. WILL FU DAILY. URINE REPORTS ARE PENDING. CONTINUE FLUID RESTRICTION. WILL AVOID HIGH SALT TABLETS HER BP IS ALREADY HIGH. HER BASELINE SODIUM IS ABOUT 130. ACTH TEST IS NORMAL DAILY LAB SHE HAS SIGNS OF DEHYDRATION ON LAB START NS AT 50 MG PER HOUR. CONTINUE ORAL FEEDING. (2) Constipation Current Visit: Yes Status: Chronic Plan: CONTINUE ENEMA. Q6H NO SIGNIFICANT RESPONSE TO ENEMAS YET MILK OF MAGENESI AND MIRALAX ORALLY POSSIBLEY MOM NOT TOLERATED. DR. SENA ORDERED LACTULOSE SHE HAD NO RESPONSE TO ENEMAS, MOM OR MIRALAX. START MOM DAILY. (3) General weakness Current Visit: Yes Status: Acute (4) Altered mental status Current Visit: No Status: Acute Plan: LOT BETTER NOW (5) Dehydration Current Visit: Yes Status: Acute Plan: RESUME IV FLUIDS ACTH TEST NEG. CHECK DAILY LAB .
[2023-01-22 04:09] LABS: Hematocrit 30.7 % (36.0-45.0); Lymphocytes % 27.8 % (15.3-44.8); MCV 91.1 fL (80-100); MPV 8.5 fL (7.6-11.3); RBC Red Blood Cell Count 3.37 M/uL (3.86-4.86)
[2023-01-22 04:21] LABS: Potassium 4.6 mEq/L (3.5-5.1)
[2023-01-22] MEDS: LIDOCAINE 4% PATCH TOP SCH (08:40)
[2023-01-22] MEDS: ENOXAPARIN 30 MG/0.3 ML SQ SCH (08:43)
[2023-01-22] MEDS: ASPIRIN EC 81 MG TAB PO SCH (08:44)
[2023-01-22] MEDS: METOPROLOL XL 25 MG TAB PO SCH (08:44)
[2023-01-22] MEDS: PANTOPRAZOLE 40MG TABLET PO SCH (08:44)
[2023-01-22] MEDS: levETIRAcetam 500 MG TAB PO SCH ×2 (08:48→21:37)
[2023-01-22] MEDS: CLOPIDOGREL 75 MG TABLET PO SCH (08:49)
[2023-01-22] MEDS: MAGNESIUM HYDROXIDE 8% 30 ML PO SCH ×2 (08:49→21:37)
[2023-01-22] MEDS: VENLAFAXINE HCL XR 75 MG CAP PO SCH (08:49)
[2023-01-22] MEDS: MEMANTINE HCL 10 MG TABLET PO SCH ×2 (08:52→21:36)
[2023-01-22] MEDS: NA CHLORIDE 0.9% 1,000 ML IV SCH ×2 (09:20→17:06)
--- NOTE | 2023-01-22 13:06 | P.PN ---
Subjective Date of Service: 01/22/23 Chief Complaint: SHE HAD GOOD BM. SHE IS STILL WEAK. Subjective: Improving SHE IS STILL WEAK HAD BM. SHE IS WORKING WITH PT I GOT TEXT FROM [employer] ABOUT APPEAL PROCESS REHAB HAS BEEN DENIED. Review of Systems 10-point ROS is otherwise unremarkable General: Weakness, Malaise Physical Examination - Vital Signs Temperature: 97.3 F Blood Pressure: 167/81 Pulse: 60 Respirations: 14 Pulse Ox (%): 98 - Physical Exam General: Alert, In no apparent distress HEENT: Atraumatic, PERRLA, EOMI Neck: Supple, JVD not distended Respiratory: Clear to auscultation bilaterally, Normal air movement Cardiovascular: Regular rate/rhythm, Normal S1 S2 Gastrointestinal: Normal bowel sounds, No tenderness Musculoskeletal: No tenderness Integumentary: No rashes Neurological: Normal speech, Normal tone, Normal affect Lymphatics: No axilla or inguinal lymphadenopathy - Studies Laboratory Data (last 24 hrs) 01/22/23 02:27: Sodium 131 L, Potassium 4.6 D, BUN 35 H, Creatinine 1.02, Glucose 94 01/22/23 02:27: WBC 7.30, Hgb 10.4 L, Hct 30.7 L, Plt Count 296 Medications List Reviewed: Yes Assessment And Plan - Current Problems (Diagnosis) (1) Hyponatremia Current Visit: Yes Status: Acute Plan: UP TO 131 NOW. STABLE. REDUCE IV. (2) Constipation Current Visit: Yes Status: Chronic Plan: CONTINUE ENEMA. Q6H NO SIGNIFICANT RESPONSE TO ENEMAS YET MILK OF MAGENESI AND MIRALAX ORALLY POSSIBLEY MOM NOT TOLERATED. DR. SENA ORDERED LACTULOSE SHE HAD NO RESPONSE TO ENEMAS, MOM OR MIRALAX. START MOM DAILY. (3) General weakness Current Visit: Yes Status: Acute Plan: DETAILS PER PT NOT ABLE TO WALK MUCH NEEDS TO BE ABLE TO USE WALKER FOR GOING HOME. (4) Altered mental status Current Visit: No Status: Acute Plan: LOT BETTER NOW (5) Dehydration Current Visit: Yes Status: Acute Plan: RESUME IV FLUIDS ACTH TEST NEG. CHECK DAILY LAB .
[2023-01-22] MEDS: ONDANSETRON 4 MG/2 ML VIAL IV PRN (17:13)
[2023-01-22] MEDS: TAMSULOSIN 0.4 MG SR CAP PO SCH (21:37)
[2023-01-23 01:53] VITALS: O2SAT 97
[2023-01-23 03:47] LABS: Absolute Lymphocytes (CBC) 2.1 K/uL (0.7-4.9); Hematocrit 31.3 % (36.0-45.0); Lymphocytes % 27.6 % (15.3-44.8); MCV 90.6 fL (80-100); MPV 8.3 fL (7.6-11.3); RBC Red Blood Cell Count 3.46 M/uL (3.86-4.86)
[2023-01-23 03:58] LABS: Potassium 4.6 mEq/L (3.5-5.1)
[2023-01-23] MEDS: cloNIDine HCL 0.1 MG TAB PO PRN ×2 (06:03→21:05)
[2023-01-23] MEDS: NA CHLORIDE 0.9% 1,000 ML IV SCH ×2 (06:04→20:59)
[2023-01-23] MEDS: LIDOCAINE 4% PATCH TOP SCH (10:20)
[2023-01-23] MEDS: MEMANTINE HCL 10 MG TABLET PO SCH ×2 (10:20→21:05)
[2023-01-23] MEDS: VENLAFAXINE HCL XR 75 MG CAP PO SCH (10:21)
[2023-01-23] MEDS: levETIRAcetam 500 MG TAB PO SCH ×2 (10:21→21:04)
[2023-01-23] MEDS: ASPIRIN EC 81 MG TAB PO SCH (10:21)
[2023-01-23] MEDS: PANTOPRAZOLE 40MG TABLET PO SCH (10:21)
[2023-01-23] MEDS: METOPROLOL XL 25 MG TAB PO SCH (10:21)
[2023-01-23] MEDS: CLOPIDOGREL 75 MG TABLET PO SCH (10:21)
[2023-01-23] MEDS: ENOXAPARIN 30 MG/0.3 ML SQ SCH (10:22)
[2023-01-23] MEDS: MAGNESIUM HYDROXIDE 8% 30 ML PO SCH ×2 (10:22→21:06)
--- NOTE | 2023-01-23 21:02 | P.PN ---
Subjective Date of Service: 01/23/23 Chief Complaint: GETTING BETTER. Subjective: Improving SHE IS STILL WEAK HAD BM. SHE IS WORKING WITH PT I GOT TEXT FROM [employer] ABOUT APPEAL PROCESS REHAB HAS BEEN DENIED. YESTERDAY I TALKED TO INS FOR REHAB AND GOT REJECTED, TODAY FOR SNIF AND GOT REJECTED. ALL INSURANCE COMPANIES ARE USELESS AND INEFFICIENT SYSTEMS AND DO NOT CARE ABOUT GIVING A PROMPT SOLUTION FOR DISPOSITION. PATIENT IS STABLE AND READY TO GO TO A SAFE PLACE. Physical Examination - Vital Signs Temperature: 96.7 F Blood Pressure: 185/84 Pulse: 62 Respirations: 18 Pulse Ox (%): 96 - Physical Exam General: Mild distress HEENT: Atraumatic, PERRLA, EOMI Neck: Supple, JVD not distended Respiratory: Clear to auscultation bilaterally, Normal air movement Cardiovascular: Regular rate/rhythm, Normal S1 S2 Gastrointestinal: Normal bowel sounds, No tenderness Musculoskeletal: No tenderness Integumentary: No rashes Neurological: Normal speech, Normal tone, Normal affect Lymphatics: No axilla or inguinal lymphadenopathy - Studies Laboratory Data (last 24 hrs) 01/23/23 03:01: Sodium 130 L, Potassium 4.6, BUN 29 H, Creatinine 0.97, Glucose 91 01/23/23 03:01: WBC 7.60, Hgb 10.6 L, Hct 31.3 L, Plt Count 287 Medications List Reviewed: Yes Assessment And Plan - Current Problems (Diagnosis) (1) Hyponatremia Current Visit: Yes Status: Acute Plan: UP TO 131 NOW. STABLE. REDUCE IV. SODIUM IS 130 NOW. REDUCE IV TO 30 ML. DAILY LAB. (2) Constipation Current Visit: Yes Status: Chronic Plan: CONTINUE ENEMA. Q6H NO SIGNIFICANT RESPONSE TO ENEMAS YET MILK OF MAGENESI AND MIRALAX ORALLY POSSIBLEY MOM NOT TOLERATED. DR. SENA ORDERED LACTULOSE SHE HAD NO RESPONSE TO ENEMAS, MOM OR MIRALAX. START MOM DAILY. (3) General weakness Current Visit: Yes Status: Acute Plan: DETAILS PER PT NOT ABLE TO WALK MUCH NEEDS TO BE ABLE TO USE WALKER FOR GOING HOME. (4) Altered mental status Current Visit: No Status: Acute Plan: LOT BETTER NOW (5) Dehydration Current Visit: Yes Status: Acute Plan: RESUME IV FLUIDS ACTH TEST NEG. CHECK DAILY LAB .
[2023-01-23] MEDS: TAMSULOSIN 0.4 MG SR CAP PO SCH (21:03)
[2023-01-24] MEDS: NA CHLORIDE 0.9% 1,000 ML IV SCH (02:18)
[2023-01-24] MEDS: CLOPIDOGREL 75 MG TABLET PO SCH (09:23)
[2023-01-24] MEDS: MEMANTINE HCL 10 MG TABLET PO SCH (09:23)
[2023-01-24] MEDS: VENLAFAXINE HCL XR 75 MG CAP PO SCH (09:24)
[2023-01-24] MEDS: MAGNESIUM HYDROXIDE 8% 30 ML PO SCH (09:24)
[2023-01-24] MEDS: METOPROLOL XL 25 MG TAB PO SCH (09:24)
[2023-01-24] MEDS: PANTOPRAZOLE 40MG TABLET PO SCH (09:24)
[2023-01-24] MEDS: levETIRAcetam 500 MG TAB PO SCH (09:24)
[2023-01-24] MEDS: ASPIRIN EC 81 MG TAB PO SCH (09:24)
[2023-01-24] MEDS: LIDOCAINE 4% PATCH TOP SCH (09:25)
[2023-01-24] MEDS: ENOXAPARIN 30 MG/0.3 ML SQ SCH (09:25)
[2023-01-24 10:35] VITALS: BP 154/52; TEMP 97
--- NOTE | 2023-01-24 12:24 | P.DS ---
Admission Date: 01/16/23 Discharge Date: 01/24/23 Disposition: ROUTINE DISCHARGE Discharge Condition: FAIR Reason for Admission: GETTING BETTER. - Problems (1) Hyponatremia Current Visit: Yes Status: Acute (2) Constipation Current Visit: Yes Status: Chronic (3) General weakness Current Visit: Yes Status: Acute (4) Altered mental status Current Visit: No Status: Acute (5) Dehydration Current Visit: Yes Status: Acute Hospital Course: DHIRAJ CAME WITH WEAKNESS AFTER [employer] GAVE HER BUMEX. HER SODIUM DROPPED TO 120. IT IS NOW UP TO130 AFTER GENTLE HYDRATION. SHE DID BETTER WITH PT AND CONSERVATIVE THERAPY. FAMILY WANTD REHAB SO WE CALLED FOR IT WASTED TIME TALKING TO [facility] DOCTOR, GOT REJECTED. NOW THEY WANTED SNIF SO THERE WAS ONE MORE PHONE ROBIN TO [facility]ELIX ALSO GOT REJECTED SHE IS SBA FOR BATHROOM AND OT HAS DISCHARGED HER SHE IS DOING GOOD ON HER OWN. SHE IS STABLE TO GO HOME. I STOPPED BUMEX AND WILL WATCH HER. SHE WAS GIVEN BUMEX BY SOME DIRECTOR OF [employer] WITHOUT KNOWING HER HISTORY OR BEING ABLE TO THINK THAT DEEP. SHE HAD SEVERE CONSTIPATION THAT WAS RELIEVED BY LACTULOSE AND SHE WILL CONTINUE THAT. Vital Signs/Physical Exam: Temp Pulse Resp BP Pulse Ox 97 F 60 20 154/52 H 95 01/24/23 08:00 01/24/23 08:00 01/24/23 08:00 01/24/23 08:00 01/24/23 08:00 Laboratory Data at Discharge: WBC 7.60 thou/uL (4.3-10.9) 01/23/23 03:01 Hgb 10.6 g/dL (12.0-15.0) L 01/23/23 03:01 Hct 31.3 % (36.0-45.0) L 01/23/23 03:01 Plt Count 287 thou/uL (152-406) 01/23/23 03:01 PT 11.8 SECONDS (9.5-12.5) 01/14/23 20:17 INR 1.07 01/14/23 20:17 APTT 42.7 SECONDS (24.3-36.9) H 01/14/23 20:17 Sodium 130 mEq/L (136-145) L 01/23/23 03:01 Potassium 4.6 mEq/L (3.5-5.1) 01/23/23 03:01 BUN 29 mg/dL (7-18) H 01/23/23 03:01 Creatinine 0.97 mg/dL (0.55-1.02) 01/23/23 03:01 Glucose 91 mg/dL (74-106) 01/23/23 03:01 Uric Acid 4.5 mg/dL (2.6-6.0) 01/20/23 02:40 Phosphorus 3.2 mg/dL (2.5-4.9) 01/14/23 20:17 Magnesium 2.1 mg/dL (1.6-2.4) 01/15/23 08:37 Total Bilirubin 0.6 mg/dL (0.2-1.0) 01/14/23 20:17 AST 48 U/L (15-37) H 01/14/23 20:17 ALT 32 U/L (13-56) 01/14/23 20:17 Alkaline Phosphatase 125 U/L (45-117) H 01/14/23 20:17 Home Medications: Acetaminophen 500 mg PO Q6H PRN 05/04/22 Aspirin [Aspirin EC] 81 mg PO DAILY 05/04/22 Biotin 5 mg PO DAILY 05/04/22 Calcium Carb, Citrate/Vit D3 [Citracal-D3 ER 600 mg-500 Unit] 2 tab PO BID 05/04/22 Glucos Sul 2Kcl/MSM/Chond/C/Mn [Glucosamine Chondroitin Cap] 1 cap PO BID 05/04/22 Levetiracetam [Keppra] 250 mg PO BID 05/04/22 Memantine HCl 5 mg PO BID 05/04/22 Multivitamin [Daily Nicole] 1 tab PO DAILY 05/04/22 Ondansetron [Zofran (Odt)*] 4 mg PO Q4H PRN 05/04/22 Propylene Glycol/Peg 400/Pf [Systane 0.3-0.4% Eye Drop] 1 gtt OPTH BID 05/04/22 Spironolactone 50 mg PO DAILY 05/04/22 Triamcinolone Acetonide 1 appl TOP Q12H PRN 05/04/22 Venlafaxine HCl [Venlafaxine HCl ER] 1 cap PO DAILY 05/04/22 Vit C/E/Zn/Coppr/Lutein/Zeaxan [Preservision Areds 2 Softgel] 2 cap PO DAILY 05/04/22 Clopidogrel Bisulfate [Plavix] 75 mg PO DAILY 01/14/23 Metoprolol Succinate 25 mg PO DAILY 01/14/23 Pantoprazole [Protonix Tab*] 40 mg PO DAILY 01/14/23 Clonidine Patch [Catapres-Tts 3*] 0.3 mg TD EVERY 7TH DAY #4 01/24/23 Lactulose [Cephulac*] 30 ml PO DAILY PRN #1000 ml 01/24/23 New Medications: Clonidine Patch [Catapres-Tts 3*] 0.3 mg TD EVERY 7TH DAY #4 Lactulose [Cephulac*] 30 ml PO DAILY PRN #1000 ml PRN Reason: Constipation
[2023-01-30] MEDS ORDERED: CLONIDINE 0.3 MG/PATCH TD SCH (09:00)
== END 2023-01-24 13:00 | disposition home or self-care (01) | DRG 643 ==
LOC: 2ND 17:25 → INTOOBSV 19:13 → OBSVTOIN 19:13
PROVIDERS: ADMIT Internal Medicine; ATTEND Internal Medicine
DX: E22.2 Syndrome of inappropriate secretion of antidiuretic hormone (principal); G93.41 Metabolic encephalopathy; I50.32 Chronic diastolic (congestive) heart failure; I11.0 Hypertensive heart disease with heart failure; E86.0 Dehydration; K59.00 Constipation, unspecified; M19.90 Unspecified osteoarthritis, unspecified site; I48.91 Unspecified atrial fibrillation; K59.09 Other constipation; Z79.82 Long term (current) use of aspirin; Z79.02 Long term (current) use of antithrombotics/antiplatelets; Z79.899 Other long term (current) drug therapy
CPT/HCPCS: 36415; 71046; 74019; 74177; 80048; 80076; 81001; 82024; 82533; 82607; 82652; 83735; 83930; 83935; 84100; 84300; 84443; 84550; 85025; 85610; 85730; 87040; 97110; 97116; 97161; 97165; 97530; A4216; G0378; G0379; J0360; J0834; J1650; J2001; J2405; J2550; J7030; Q0162; Q9967

== ENCOUNTER 2023-01-27 14:09 | Inpatient (IN) | payer OTHER ==
--- OUTSIDE RECORDS SUMMARY | 2023-01-27 14:16 | XMS REPORT | Continuity of Care Document ---
:1935 Author Organization [facility] t Address [address] [place] [address] [address] [place] [address] Care Team Providers Name Role Phone Jeremy Frost Attending Clinician Unavailable ARLENE VOSS Attending Clinician Unavailable JATINDER GREEN Attending Clinician Unavailable BORIS DAMICO Attending Clinician Unavailable STEPHANIE RAO Admitting Clinician Unavailable Payers Payer Name Policy Type Policy Number Effective Date Expiration Date S davece UNITED MEDICARE [id number] [address] [facility] 00:00:00 Problems Condition Condition Condition Status Onset Resolution Last Treating Co mments Source Name Details Category Date Date Treatment Clinician Date [id number] Anterior Problem Active Comm on dislocatio Spirit n [facility] left - [facility], [facility] Allergies, Adverse Reactions, Alerts Allergy Allergy Status Severity Reaction(s) Onset Inactive Treating Comm ents Source Name Type Date Date Clinician CEPHALEX Allergy Active 0 [facility] IN 09-14 00:00: 00 PHENYTOI Allergy Active [facility] N 09-14 00:00: 00 LATEX Allergy Active [facility] 09-14 00:00: 00 8091 Drug Active Unknown Common allergy [facility] Social History Social Habit Start Date Stop Date Quantity Comments Source History of Tobacco Use Co mmon [facility] Sex Assigned At Com mon [facility] Smoking Status Start Date Stop Date Source Never Smoker Common [facility] Medications Ordered Filled Start Stop Current Ordering [...] 13:30:00 139 mm[Hg] [facility] - systolic [facility] blood pressure 2022-04-17 13:30:00 60 mm[Hg] [facility] - diastolic [facility] height 2022-04-17 13:30:00 60 [in_i] Common [facility] weight 2022-04-17 13:30:00 141.4 [lb_av] [facility] temperature 2022-04-17 13:30:00 97.4 [degF] Common [facility] bmi 2022-04-17 13:30:00 27.61 kg/m2 Common [facility] height 2022-03-18 13:30:00 60 [in_i] [facility] weight 2022-03-18 13:30:00 140 [lb_av] [facility] bmi 2022-03-18 13:30:00 27.34 kg/m2 [facility] blood pressure 2022-03-18 13:30:00 130 mm[Hg] [facility] - systolic [facility] blood pressure 2022-03-18 13:30:00 78 mm[Hg] [facility] - diastolic [facility] height 2022-02-25 15:30:00 60 [in_i] Common [facility] weight 2022-02-25 15:30:00 140 [lb_av] [facility] bmi 2022-02-25 15:30:00 27.34 kg/m2 [facility] blood pressure 2022-02-25 15:30:00 128 mm[Hg] [facility] blood pressure 2022-02-25 15:30:00 74 mm[Hg] [facility] diastolic [facility] Procedures This patient has no known procedures. Encounters Start End Encounter Admission Attending Care Care Encounter Source Date/Time Date/Time Type Type Clinicians Facility Department ID 2022-09-13 Inpatient ER [facility] Cardiology [id number] 15:18:50 [facility] 2022-03-18 Outpatient Santosh STYOSSI [facility] [id number] Common 13:21:02 Jeremy [facility] 2022-02-25 Outpatient Santosh [facility] ST[facility] [id number] Common 14:49:02 Jeremy [id number] [facility] 2022-10-01 2022-10-01 Outpatient [facility] [id number] SLE 11:24:26 11:24:26 ARLENE 2022-09-14 2022-09-27 Inpatient ER CJ GREEN Emergency [id number] SLE 00:53:00 10:23:00 AMER 2022-04-17 2022-04-17 OFFICE [facility] STLC [id number] Co mmon 00:00:00 00:00:00 VISIT EST Spir it PT LEVEL [address] [place] [address] 2022-03-18 2022-03-18 OFFICE STLMLC STLMLC [id number] Co mmon 00:00:00 00:00:00 VISIT EST Spir it PT LEVEL [address] [place] [address] 2022-02-25 2022-02-25 OFFICE STLMLC STLMLC [id number] Co mmon 00:00:00 00:00:00 VISIT NEW Spir it PT LEVEL [address] [place] [address] Results Test Description Test Time Test Comments Results Result Comments Source B-TYPE NATRIURETIC FACTOR (BNP) 2022-10-01 14:55:11 Test Item Value Reference Range Interpretation Comme nts B-TYPE NATRIURETIC PEPTIDE (BEAKER) (test code = 700) 544 pg/mL 0-100 H Informatics [facility] [id number] 14:42:47 Test Item Value Reference Range Interpretation [...] not appl icable for dialysis patien ts Informatics Spec ID - JANCBC W/PLT COUNT & AUTO [id number] 14:28:26 Test Item Value Reference Range Interpretation [...] CONCENTRATION Adequate (CELLAVISION)(BEAKER) (test code = 3438) Informatics Spec ID - Donita Bond comments: Slide comments:CBC W/PLT COUNT & AUTO [id number] 06:52:52 Test Item Value Reference Range Interpretation [...] 0-0 CELLS (BEAKER) (test code = 413) [id number] 05:48:13 Test Item Value Reference Range Interpretation Comments PHOSPHORUS (BEAKER) (test code = 2.8 mg/dL 2.3-4.7 604) Informatics Spec ID - PIAYA LCOMPREHENSIVE METABOLIC [id number] 05:48:12 Test Item Value Reference Range Interpretation [...] not appl icable for dialysis patien ts Informatics Spec ID - SHWETA [id number] 05:48:12 Test Item Value Reference Range Interpretation Comments MAGNESIUM (BEAKER) (test code = 1.7 mg/dL 1.6-2.6 627) Informatics Spec ID - SHWETA LCALCIUM, [id number] 05:28:17 Test Item Value Reference Range Interpretation [...] CONCENTRATION Adequate (CELLAVISION)(BEAKER) (test code = 3438) Informatics Spec ID - Jeff comments: Slide comments:CBC W/PLT COUNT & AUTO [id number] 08:04:51 Test Item Value Reference Range Interpretation [...] WBC 0-0 (BEAKER) (test code = 413) [id number] 06:26:33 Test Item Value Reference Range Interpretation Comments PHOSPHORUS (BEAKER) (test code = 4.2 mg/dL 2.3-4.7 604) Informatics Spec ID - BSCOMPREHENSIVE METABOLIC [id number] 06:26:32 Test Item Value Reference Range Interpretation [...] not appl icable for dialysis patien ts Informatics Spec ID - [id number] 06:26:32 Test Item Value Reference Range Interpretation Comments MAGNESIUM (BEAKER) (test code = 1.7 mg/dL 1.6-2.6 627) Informatics Spec ID - BSCALCIUM, [id number] 05:32:39 Test Item Value Reference Range Interpretation Comments CALCIUM IONIZED (BEAKER) (test 1.12 mmol/L 1.12-1.27 code = 698) PH, BLOOD (BEAKER) (test code = 7.35 1810) [id number] 14:44:24 Test Item Value Reference Range Interpretation Comments ACTIVATED CLOTTING TIME 359 sec : 74 -137 seconds, (BEAKER) (test code = Baseli ne: TESTED AT 441) [facility] [address] [facility], [address] 30: Informatics Spec/Techni juve ID = [id number] for Ho Lia montoya [id number] 14:31:34 Test Item Value Reference Range Interpretation Comments ACTIVATED CLOTTING TIME 299 sec : 74 -137 seconds, (BEAKER) (test code = Baseli ne: TESTED AT 441) [address], [facility] 30: Informatics Spec/Techni juve ID = [id number] for CA RPIO, GARCÍA CT, CTA, [id number] 10:55:00TAVR protocolUnlisted Reason for Exam - Click Yes and Enter Reason Below->No [facility] : 1935 Sex: FAddendum Radha [...] months if no change Signed: Alexa Castelan [facility] SYSTEM[facility]ort Verified Date/Time:09/25/2022 10:55:42 Reading Location: [place] [address] Angio Body Reading RoomAddendum EndsFINAL REPORT CT [...] 3-D volume-rendering reconstruction was performed using an [employer] workstation interactively by the interpreting physician as [...] 65.3 degrees. The angle of delivery is RAFAL 33 BONE DENSITY TECHNICIAN 10. The minimal and perpendicular abdominal aortic [...] measures 6.5 and 8.3 mm, respectively with jbvj-oy-kkkkmpra tortuosity and milddiffuse calcific atherosclerosis present. The [...] An addendum will be dictated by the Dictating Machine Transcriber Radiologist regarding the nonvascular findings. THE REPORT WILL ONLY BE CONSIDERED COMPLETEAFTER THE ADDENDUM HAS BEEN DICTATED. Signed: Jose Porter MDReport Verified Date/Time: 09/24/2022 16:14:27 CT, CTA ABDOMEN 2022-09-25 10:55:00TAVR protocolUnlisted Reason for Exam - Click Yes and Enter Reason Below->No [facility] : 1935 Sex: FAddendum Radha [...] Castelan MDReport Verified Date/Time:09/25/2022 10:55:42 Reading Location: [place] [address] Angio Body Reading RoomAddendum EndsFINAL REPORT CT [...] 3-D volume-rendering reconstruction was performed using an [employer] workstation interactively by the interpreting physician as well as the 3-D specialist foroptimal visualisation of the thoracoabdominal aorta, the pelvic arteries as well as its proximal branches. Please refer to the contrast sheet scanned in the [employer] system for the amount and route of [...] 65.3 degrees. The angle of delivery is RAFAL 33 BONE DENSITY TECHNICIAN 10. The minimal and perpendicular abdominal aortic [...] measures 6.5 and 8.3 mm, respectively with mmft-sj-akmbckun tortuosity and milddiffuse calcific atherosclerosis present. The [...] An addendum will be dictated by the Dictating Machine Transcriber Radiologist regarding the nonvascular findings. THE REPORT WILL ONLY BE CONSIDERED COMPLETE AFTER THE ADDENDUM HAS BEEN DICTATED. Signed: Jose Porter MDReport Verified Date/Time: 09/24/2022 16:14:27 PHOSPHOR 2022-09-25 05:36:19 Test Item Value Reference Range Interpretation Comments PHOSPHORUS (BEAKER) (test code = 4.5 mg/dL 2.3-4.7 604) Informatics Spec ID - [facility]OL[facility] [id number] 05:36:18 Test Item Value Reference Range Interpretation [...] not appl icable for dialysis patien ts Informatics Spec ID - EDGAR [id number] 05:36:18 Test Item Value Reference Range Interpretation Comments MAGNESIUM (BEAKER) (test code = 1.6 mg/dL 1.6-2.6 627) Informatics Spec ID - EDGAR GCBC W/PLT COUNT & AUTO [id number] 04:36:47 Test Item Value Reference Range Interpretation [...] PERCENT (BEAKER) (test code = 2801) CALCIUM, [id number] 04:20:23 Test Item Value Reference Range Interpretation Comments CALCIUM IONIZED (BEAKER) (test 1.12 mmol/L 1.12-1.27 code = 698) PH, BLOOD (BEAKER) (test code = 7.45 1810) BASIC METABOLIC [id number] 20:54:15 Test Item Value Reference Range Interpretation [...] not appl icable for dialysis patien ts Informatics Spec ID - [id number] 06:14:55 Test Item Value Reference Range Interpretation Comments MAGNESIUM (BEAKER) (test code = 1.8 mg/dL 1.6-2.6 627) Informatics Spec ID - BSBASIC METABOLIC [id number] 06:14:54 Test Item Value Reference Range Interpretation [...] not appl icable for dialysis patien ts Informatics Spec ID - BSCBC W/PLT COUNT & AUTO [id number] 06:10:46 Test Item Value Reference Range Interpretation [...] 0.00-1.00 PERCENT (BEAKER) (test code = 2801) [id number] 05:58:46 Test Item Value Reference Range Interpretation Comments MAGNESIUM (BEAKER) (test code = 1.7 mg/dL 1.6-2.6 627) Informatics Spec ID - MARCOBASIC METABOLIC [id number] 05:58:45 Test Item Value Reference Range Interpretation [...] not appl icable for dialysis patien ts Informatics Spec ID - MARCOCBC W/PLT COUNT & AUTO [id number] 05:27:09 Test Item Value Reference Range Interpretation [...] (BEAKER) (test code = 2801) BASIC METABOLIC [id number] 09:23:32 Test Item Value Reference Range Interpretation [...] not appl icable for dialysis patien ts Informatics Spec ID - JOSEY D, CHEST, 1 VIEW, NON [id number] 07:39:00Reason for exam:->EdemaShould this be performed at the bedside?->Yes [facility] : 1935 Sex: FFINAL REPORTPATIENT ID: [id number] RAD, CHEST, 1 VIEW, NON DEPT INDICATION: [...] pg/mL 0-100 H (test code = 700) Informatics Spec BHUPENDRA - JOSEY SCBC W/PLT COUNT & AUTO [id number] 06:54:55 Test Item Value Reference Range Interpretation [...] 0.00-1.00 PERCENT (BEAKER) (test code = 2801) [id number] 21:49:47 Test Item Value Reference Range Interpretation Comments SODIUM (BEAKER) (test code = 381) 134 meq/L 136-145 L POTASSIUM (BEAKER) (test code = 4.8 meq/L 3.5-5.1 379) CHLORIDE (BEAKER) (test code = 382) 106 meq/L 98-107 CO2 (BEAKER) (test code = 355) 22 meq/L 22-29 Informatics Spec ID - JSCBC W/PLT COUNT & AUTO [id number] 18:53:43 Test Item Value Reference Range Interpretation [...] PERCENT (BEAKER) (test code = 2801) SARS-COV2/RT-PCR [facility])2022-09-21 06:44:16 Test Item Value Reference Range Interpretation Comments SARS-COV2/RT-PCR Negative Negative The SARS-Co V-2 target (test code = nucleic acids a re not 2822583) detected in thi s specimen. Negative result [...] revoked sooner. Fact Sheet for Healthcare Providers: https://www.Unirisx m/Documents/Xpert%20Xpress%20SARS%20CoV-2/Fact%20Sheets/302-3802%89JHRN-LNQ-6%20 HEALTHCARE%20PROVIDERS%20FACT%20SHEET.pdf Fact Sheet for Healthcare Patients: https://www.Hum/Documents/Xpert%20Xp ress%20SARS%20CoV-2/Fact%20Sheets/302-3801%61QTOV-RKO-4%20PATIENT%20FACT%20SHEET .[id number] 06:42:36 Test Item Value Reference Range Interpretation Comments PHOSPHORUS (BEAKER) (test code = 4.4 mg/dL 2.3-4.7 604) Informatics Spec ID - PIAYA LCOMPREHENSIVE METABOLIC [id number] 06:42:35 Test Item Value Reference Range Interpretation [...] not appl icable for dialysis patien ts Informatics Spec ID - SHWETA [id number] 06:42:35 Test Item Value Reference Range Interpretation Comments MAGNESIUM (BEAKER) (test code = 2.2 mg/dL 1.6-2.6 627) Informatics Spec ID - SHWETA LCALCIUM, [id number] 06:42:10 Test Item Value Reference Range Interpretation Comments CALCIUM IONIZED (BEAKER) (test 1.22 mmol/L 1.12-1.27 code = 698) PH, BLOOD (BEAKER) (test code = 7.34 1810) B-TYPE NATRIURETIC FACTOR (BNP)2022-09-21 06:39:34 Test Item Value Reference Range Interpretation Comments B-TYPE NATRIURETIC PEPTIDE (BEAKER) 234 pg/mL 0-100 H (test code = 700) Informatics Spec ID - SHWETA LCBC W/PLT COUNT & AUTO [id number] 06:23:40 Test Item Value Reference Range Interpretation [...] PERCENT (BEAKER) (test code = 2801) OSMOLALITY, [id number] 07:29:00 Test Item Value Reference Range Interpretation Comments OSMOLALITY, SERUM (BEAKER) (test 298 mOsm/kg 275-295 H code = 615) [id number] 05:41:15 Test Item Value Reference Range Interpretation Comments MAGNESIUM (BEAKER) (test code = 2.5 mg/dL 1.6-2.6 627) Informatics Spec ID Shraddha ROCK [id number] 05:41:15 Test Item Value Reference Range Interpretation Comments PHOSPHORUS (BEAKER) (test code = 3.9 mg/dL 2.3-4.7 604) Informatics Spec ID - SHWETA LCOMPREHENSIVE METABOLIC [id number] 05:41:14 Test Item Value Reference Range Interpretation [...] not appl icable for dialysis patien ts Informatics Spec ID - PIANA LBUN AND CREATININE [id number] 05:41:14 Test Item Value Reference Range Interpretation Comments BLOOD UREA 47 mg/dL 7-21 H NITROGEN (BEAKER) (test code = 354) CREATININE 1.25 mg/dL 0.57-1.25 (BEAKER) (test code = 358) BUN/CREAT RATIO 38 For a normal individual on (BEAKER) (test a normal diet , the code = reference inter mita for the 5210693911) mass ratio rang es between 12:1 and [...] appl icable for dialysis patien ts CALCIUM, [id number] 05:23:20 Test Item Value Reference Range Interpretation Comments CALCIUM IONIZED (BEAKER) (test 1.19 mmol/L 1.12-1.27 code = 698) PH, BLOOD (BEAKER) (test code = 7.38 1810) CBC W/PLT COUNT & AUTO [id number] 05:07:15 Test Item Value Reference Range Interpretation [...] (BEAKER) (test code = 2801) U/S, RENAL, [id number] 12:20:00Reason for exam:->Acute kidney injury Should this be performed at the bedside?->Yes [facility] 1935 Sex: FFINAL REPORTPATIENT ID: [id number] U/S, RENAL, COMPLETE CLINICAL HISTORY: Acute kidney [...] 09/19/2022 12:20:54 CBC W/PLT COUNT & AUTO [id number] 08:35:21 Test Item Value Reference Range Interpretation [...] CONCENTRATION Adequate (CELLAVISION)(BEAKER) (test code = 3438) Informatics Spec ID - Nitish Dato-onUser comments: Slide comments:TSH/FREE T4 IF [id number] 07:01:04 Test Item Value Reference Range Interpretation Comments THYROID STIMULATING HORMONE 1.445 uIU/mL 0.350-4.940 (BEAKER) (test code = 772) Informatics Spec ID - MARCOPROTHROMBIN [id number] 06:41:42 Test Item Value Reference Range Interpretation Comments PROTIME (BEAKER) 14.7 seconds 11.9-14.2 H (test code = 759) INR (BEAKER) (test 1.17 See_Comment [Automat ed message] code = 370) The system [employer] generated this result transmitted ref erence range: <=5.90. The reference range was not used to int erpret this result as normal/abnormal . RECOMMENDED COUMADIN/WARFARIN INR THERAPY RANGESSTANDARD DOSE: 2.0 - 3.0 Includes: PROPHYLAXIS for venous thrombosis, systemic embolization; TREATMENT for venous thrombosis and/or pulmonary embolus.HIGH RISK: Target INR is 2.5-3.5 for patients with mechanical heart valves.[id number] 06:39:36 Test Item Value Reference Range Interpretation Comments MAGNESIUM (BEAKER) (test code = 2.5 mg/dL 1.6-2.6 627) Informatics Spec ID - [id number] 06:39:36 Test Item Value Reference Range Interpretation Comments PHOSPHORUS (BEAKER) (test code = 3.9 mg/dL 2.3-4.7 604) Informatics Spec ID - MARCOBUN AND CREATININE [id number] 06:39:35 Test Item Value Reference Range Interpretation Comments BLOOD UREA 52 mg/dL 7-21 H NITROGEN (BEAKER) (test code = 354) CREATININE 1.35 mg/dL 0.57-1.25 H (BEAKER) (test code = 358) BUN/CREAT RATIO 39 For a normal individual on (BEAKER) (test a normal diet , the code = reference inter mita for the 5268614682) mass ratio rang es between 12:1 and [...] icable for dialysis patien ts COMPREHENSIVE METABOLIC [id number] 06:39:35 Test Item Value Reference Range Interpretation [...] is not as accur ate as Creatinine Basilai karla in predicting glom erular filtration rate . Estimated GFR is not appl icable for dialysis patien ts Informatics Spec ID - MARCOCALCIUM, [id number] 06:21:54 Test Item Value Reference Range Interpretation Comments CALCIUM IONIZED (BEAKER) (test 1.16 mmol/L 1.12-1.27 code = 698) PH, BLOOD (BEAKER) (test code = 7.44 1810) RAD, CHEST, 1 VIEW, NON [id number] 03:08:00Reason for exam:- >pacemaekrShould this be performed at the bedside?->Yes [facility] : 1935 Sex: FFINAL REPORT RAD, CHEST, 1 VIEW, NON DEPT INDICATION: pacemaker COMPARISON: 09/14/2022 FINDINGS: Portable frontal view of the chest. 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 Lungs and pleura: No airspace consolidation or effusion. No pneumothorax. Heart and mediastinum: Stable contours. Additional findings: None. Signed: Juan C Barnes MDReport Verified Date/Time: 09/19/2022 03:08:17 PROTEIN, RANDOM [id number] 19:06:39 Test Item Value Reference Range Interpretation Comments PROTEIN, URINE (BEAKER) (test code = < mg/dL 0-14 1569) Informatics Spec ID - BSCREATININE, RANDOM [id number] 19:05:35 Test Item Value Reference Range Interpretation Comments CREATININE URINE (BEAKER) (test 52.5 mg/dL code = 375) Reference Range: No NormalsOperator ID - BSURINALYSIS W/ [id number] 18:18:02 Test Item Value Reference Range Interpretation [...] (test code Urine, Clean Catch = 2795) Informatics Spec ID - [auto]Informatics Spec ID - tech(CELLAVISION MANUAL DIFF)2022-09-18 11:46:28 Test [...] CONCENTRATION Adequate (CELLAVISION)(BEAKER) (test code = 3438) Informatics Spec ID - Terri OverholtUser comments: Slide comments:CBC W/PLT COUNT & AUTO [id number] 11:46:27 Test Item Value Reference Range Interpretation [...] WBC 0-0 (BEAKER) (test code = 413) [id number] 07:01:21 Test Item Value Reference Range Interpretation Comments FERRITIN (BEAKER) (test code = 30.77 ng/mL 5.00-275.00 361) Informatics Spec ID - EDGAR [id number] 06:47:19 Test Item Value Reference Range Interpretation Comments MAGNESIUM (BEAKER) (test code = 2.5 mg/dL 1.6-2.6 627) Informatics Spec ID - [id number] 06:47:19 Test Item Value Reference Range Interpretation Comments PHOSPHORUS (BEAKER) (test code = 4.4 mg/dL 2.3-4.7 604) Informatics Spec ID - BSCOMPREHENSIVE METABOLIC [id number] 06:47:18 Test Item Value Reference Range Interpretation [...] not appl icable for dialysis patien ts Informatics Spec ID - BSCALCIUM, [id number] 06:45:36 Test Item Value Reference Range Interpretation [...] % 20-55 L (test code = 2590) Informatics Spec ID - EDGAR GRETICULOCYTE [id number] 06:25:08 Test Item Value Reference Range Interpretation Comments RETICULOCYTE COUNT PCT (BEAKER) (test 2.4 % 0.5-1.7 H code = 575) Informatics Spec ID - [id number] NITROGEN, RANDOM [id number] 13:38:55 Test Item Value Reference Range Interpretation Comments UREA NITROGEN URINE (BEAKER) (test 437 mg/dL code = 538) Reference Range: No NormalsOperator ID - PIAYA LCREATININE, RANDOM URINE 2022-09-17 13:38:54 Test Item Value Reference Range Interpretation Comments CREATININE URINE (BEAKER) (test 64.3 mg/dL code = 375) Reference Range: No NormalsOperator ID - PIAYA LSODIUM, RANDOM [id number] 13:38:54 Test Item Value Reference Range Interpretation Comments SODIUM URINE (BEAKER) (test code = 58 meq/L 243) Reference Range: No NormalsOperator ID - PIAYA [id number] 11:44:16 Test Item Value Reference Range Interpretation Comments ALBUMIN (BEAKER) (test 3.8 g/dL 3.5-5.0 Speci men slightly code = 1145) hemolyzed Informatics Spec ID - DESTINEE(CELLAVISION MANUAL DIFF)2022-09-17 08:20:26 Test [...] CONCENTRATION Adequate (CELLAVISION)(BEAKER) (test code = 3438) Informatics Spec ID - Donita Bond comments: Slide comments: PLT: Plt normal BASIC METABOLIC [id number] 06:55:33 Test Item Value Reference Range Interpretation [...] not appl icable for dialysis patien ts Informatics Spec ID Shraddha HEBERT [id number] 06:53:22 Test Item Value Reference Range Interpretation Comments MAGNESIUM (BEAKER) 2.5 mg/dL 1.6-2.6 Specimen slightly (test code = 627) hemolyzed Informatics Spec ID Shraddha HEBERT [id number] 06:53:22 Test Item Value Reference Range Interpretation Comments PHOSPHORUS (BEAKER) 5.1 mg/dL 2.3-4.7 H Specimen slightly (test code = 604) hemolyzed Informatics Spec BHUPENDRA HEBERT WCBC W/PLT COUNT & AUTO [id number] 05:52:58 Test Item Value Reference Range Interpretation [...] 0-0 (BEAKER) (test code = 413) CALCIUM, [id number] 05:49:58 Test Item Value Reference Range Interpretation Comments CALCIUM IONIZED (BEAKER) (test 1.15 mmol/L 1.12-1.27 code = 698) PH, BLOOD (BEAKER) (test code = 7.40 1810) B-TYPE NATRIURETIC FACTOR (BNP)2022-09-16 20:13:37 Test Item Value Reference Range Interpretation Comments B-TYPE NATRIURETIC PEPTIDE (BEAKER) 160 pg/mL 0-100 H (test code = 700) Informatics Spec ID - [id number] 04:37:24 Test Item Value Reference Range Interpretation Comments MAGNESIUM (BEAKER) (test code = 1.8 mg/dL 1.6-2.6 627) Informatics Spec ID - PIAYA [id number] 04:37:24 Test Item Value Reference Range Interpretation Comments PHOSPHORUS (BEAKER) (test code = 4.1 mg/dL 2.3-4.7 604) Informatics Spec ID - PIAYA LBASIC METABOLIC [id number] 04:37:23 Test Item Value Reference Range Interpretation [...] not appl icable for dialysis patien ts Informatics Spec ID - PIAYA LCBC W/PLT COUNT & AUTO [id number] 03:48:23 Test Item Value Reference Range Interpretation [...] PERCENT (BEAKER) (test code = 2801) CALCIUM, [id number] 03:35:18 Test Item Value Reference Range Interpretation Comments CALCIUM IONIZED (BEAKER) (test 1.13 mmol/L 1.12-1.27 code = 698) PH, BLOOD (BEAKER) (test code = 7.43 1810) HIGH SENSITIVITY TROPONIN [id number] 08:28:29 Test Item Value Reference Range Interpretation Comments HIGH SENSITIVITY 37 pg/ml See_Comment H [Automated message] TROPONIN I (test code = The system which 9909955) generated this result transmitted ref erence range: <=17. Th e reference range was not used to int erpret this result as normal/abnormal . Informatics Spec ID - EDGAR GThe STATE INSPECTOR STAT High Sensitivity Troponin-I results should be used in conjunction with other diagnostic information such as ECG, clinical observations and information, and patient symptoms to aid in the diagnosis of CT.[id number] 08:23:50 Test Item Value Reference Range Interpretation Comments MAGNESIUM (BEAKER) 2.0 mg/dL 1.6-2.6 Specimen slightly (test code = 627) hemolyzed Informatics Spec ID - EDGAR GBASIC METABOLIC [id number] 08:23:30 Test Item Value Reference Range Interpretation [...] not appl icable for dialysis patien ts Informatics Spec ID - EDGAR GRAD, CHEST, 1 VIEW, NON [id number] 03:11:00Reason for exam:->IRREGULAR HEART BEATShould this be performed at the bedside?->Yes [facility] 1935 Sex: FFINAL REPORTPATIENT ID: [id number] RAD, CHEST, 1 VIEW, NON DEPT CLINICAL STATEMENT: Irregular heartbeat. COMPARISON: Irregular heartbeat. FINDINGS: Heart is moderately enlarged. Aortic arch is mildly calcified. There is no focal lung consolidation or pleural effusion. No evidence of pulmonary edema or pneumothorax.IMPRESSION: No acute cardiopulmonary disease. Signed: Axel Oden Verified Date/Time: 09/14/2022 03:11:20 SARS-COV2/RT-PCR ([facility])2022-09-14 02:49:00 Test Item Value Reference Range Interpretation Comments SARS-COV2/RT-PCR Negative Negative The SARS-Co V-2 target (test code = nucleic acids a re not 1383636) detected in thi s specimen. Negative result [...] sooner. Fact Sheet for Healthcare Providers: https://www.cepheid.co m/Documents/Xpert%20Xpress%20SARS%20CoV-2/Fact%20Sheets/302-7750%21YIEO-GGD-0%20 HEALTHCARE%20PROVIDERS%20FACT%20SHEET.pdf Fact Sheet for Healthcare Patients: https://www.Hum/Documents/Xpert%20Xp ress%20SARS%20CoV-2/Fact%20Sheets/302-3801%57FRRT-HIO-4%20PATIENT%20FACT%20SHEET .pdfHIGH SENSITIVITY TROPONIN [id number] 02:25:22 Test Item Value Reference Range Interpretation Comments HIGH SENSITIVITY 31 pg/ml See_Comment H [Automated message] TROPONIN I (test code = The system which 8707350) generated this result transmitted ref erence range: <=17. Th e reference range was not used to int erpret this result as normal/abnormal . Informatics Spec ID - DEGAR GThe STATE INSPECTOR STAT High Sensitivity Troponin-I results should be used in conjunction with other diagnostic information such as ECG, clinical observations and information, and patient symptoms to aid in the diagnosis of CT.BASIC METABOLIC [id number] 02:20:02 Test Item Value Reference Range Interpretation [...] not appl icable for dialysis patien ts Informatics Spec ID - [id number] 02:19:41 Test Item Value Reference Range Interpretation Comments MAGNESIUM (BEAKER) 2.1 mg/dL 1.6-2.6 Specimen slightly (test code = 627) hemolyzed Informatics Spec ID - ADMINCBC W/PLT COUNT & AUTO [id number] 02:00:18 Test Item Value Reference Range Interpretation [...]
[2023-01-27 15:33] LABS: Absolute Lymphocytes (CBC) 1.7 K/uL (0.7-4.9); Hematocrit 31.4 % (36.0-45.0); Lymphocytes % 16.4 % (15.3-44.8); MCV 89.4 fL (80-100); MPV 8.5 fL (7.6-11.3); RBC Red Blood Cell Count 3.51 M/uL (3.86-4.86)
[2023-01-27 15:50] LABS: Albumin 3.1 g/dL (3.4-5.0); Bilirubin Total 0.3 mg/dL (0.2-1.0); Potassium 4.8 mEq/L (3.5-5.1); Protein, Total 7.8 g/dL (6.4-8.2)
[2023-01-27] MEDS ORDERED: NA CHLORIDE 0.9% 250 ML ONE (16:13)
[2023-01-27] MEDS ORDERED: PROMETHAZINE INJ 25 MG/ML AMP ONE (16:13)
[2023-01-27] MEDS ORDERED: MORPHINE 2 MG/ML SYR ONE (16:13)
[2023-01-27 16:38] LABS: Specific Gravity 1.005 (1.005-1.030); Urine Bilirubin NEGATIVE (Negative); Urine Blood Negative (Negative); Urine Clarity Clear (Clear); Urine Color Colorless (Yellow); Urine Glucose NEGATIVE (Negative); Urine Protein NEGATIVE (Negative); Urine Urobilinogen Normal (Normal); Urine pH 6.5 (5.0-7.0)
--- NOTE | 2023-01-27 16:55 | RAD REPORT ---
EXAM DESCRIPTION: CT - Abdomen Pelvis W Contrast - 01/27/2023 4:43 pm CLINICAL HISTORY: Abdominal pain COMPARISON: December 2022 TECHNIQUE: Computed axial tomography of the abdomen pelvis was obtained. 100 cc Isovue-300 was admin istered intravenously. Oral contrast was not requested which limits evaluation of bowel and appendix All CT scans are performed using dose optimization technique as appropriate and may include automated exposure control or mA/KV adjustment according to patient size. FINDINGS: Images are degraded by patient motion artifact The liver, spleen, pancreas, adrenal and kidneys appear unremarkable. There is no evidence of diverticulitis. No adnexal mass. Spondylosis involves the lumbar spine resulting in spinal stenosis Cholecystectomy IMPRESSION: No acute abnormality is displayed.
--- NOTE | 2023-01-27 19:49 | EDPHYS ---
Physician Documentation [facility] Name: Larissa Wharton Age: 87 yrs Sex: Female : 1935 Arrival Date: 01/27/2023 Time: 14:09 Bed 8 Private MD: ED Physician Gurmeet Lopes HPI: 01/27 19:55 This 87 yrs old Female presents to ER via Ambulatory with complaints of Vomiting, kdr Belching, confusion. 19:58 The patient is brought to the ED today with concern for her change in altered mental kdr status, belching, abdominal pain. She was discharged from the facility under Dr. Frost's care on Friday. She been admitted at that time for a small bowel obstruction. Today she began vomiting again and belching today as when she was previously admitted this last week. She also reported lower abdominal pain and pain with urination. Patient is currently ANO x2 (self and place) whereas daughter reports that the patient is normally sharp and able to verbalize much more than she is at this time. Patient does appear to struggle answering questions and is breathing with pursed lips. Otherwise she is nontoxic-appearing.. Onset: The symptoms/episode began/occurred suddenly, this morning, today. Severity of symptoms: At their worst the symptoms were mild moderate just prior to arrival, in the emergency department the symptoms are unchanged. The patient has experienced similar episodes in the past, with the last episode occurring last week. The patient has been recently seen by a physician: Dr. Frost. Historical: - Allergies: 14:32 Cephalexin; ph 14:32 Dilantin; ph 14:32 Latex, Natural Rubber; ph 14:32 Phenytoin; ph - PMHx: 14:32 a fib; Dementia; Hypertensive disorder; Seizure; ph - Immunization history:: Adult Immunizations unknown. - Social history:: Smoking status: unknown. ROS: 19:58 Constitutional: Negative for fever, chills, and weight loss, Eyes: Negative for injury, kdr pain, redness, and discharge, Neck: Negative for injury, pain, and swelling, Cardiovascular: Negative for chest pain, palpitations, and edema, Back: Negative for injury and pain, : Negative for injury, bleeding, discharge, and swelling, MS/Extremity: Negative for injury and deformity, Skin: Negative for injury, rash, and discoloration, Allergy/Immunology: Negative for hives, rash, and allergies, Endocrine: Negative for neck swelling, polydipsia, polyuria, polyphagia, and marked weight changes, Hematologic/Lymphatic: Negative for swollen nodes, abnormal bleeding, and unusual bruising. 19:58 Respiratory: Positive for shortness of breath, at rest. 19:58 Abdomen/GI: Positive for abdominal pain, nausea and vomiting, nausea. 19:58 Neuro: Positive for weakness. Exam: 19:58 Constitutional: This is a well developed, well nourished patient who is awake, alert, kdr and in mild to moderate distress. Head/Face: Normocephalic, atraumatic. Eyes: Pupils equal round and reactive to light, extra-ocular motions intact. Lids and lashes normal. Conjunctiva and sclera are non-icteric and not injected. Cornea within normal limits. Periorbital areas with no swelling, redness, or edema. Neck: Trachea midline, no thyromegaly or masses palpated, and no cervical lymphadenopathy. Supple, full range of motion without nuchal rigidity, or vertebral point tenderness. No Meningismus. Chest/axilla: Normal chest wall appearance and motion. Nontender with no deformity. No lesions are appreciated. Cardiovascular: Regular rate and rhythm with a normal S1 and S2. No gallops, murmurs, or rubs. Normal PMI, no JVD. No pulse deficits. Respiratory: Lungs have equal breath sounds bilaterally, clear to auscultation and percussion. No rales, rhonchi or wheezes noted. No increased work of breathing, no retractions or nasal flaring. Back: No spinal tenderness. No costovertebral tenderness. Full range of motion. Skin: Warm, dry with normal turgor. Normal color with no rashes, no lesions, and no evidence of cellulitis. Psych: Awake, alert, with orientation to person, place and time. Behavior, mood, and affect are within normal limits. 19:58 Neuro: Orientation: to person, place, Mentation: slow to respond, confused, Memory: Poor recall according to the daughter, she states that she is normally much sharper than this, Cerebellar function: unable to test, Motor: moves all fours. Vital Signs: 14:20 BP 167 / 98; Pulse 93; Resp 20; Temp 97.9; Pulse Ox 95% ; Weight 34.02 kg; jl7 14:59 BP 185 / 87; Pulse 93; Resp 16; Pulse Ox 96% on R/A; ko1 16:00 BP 175 / 81; Pulse 89; Resp 16; Pulse Ox 96% ; ko1 17:00 BP 173 / 79; Pulse 92; Resp 18; Pulse Ox 98% ; ko1 18:00 BP 170 / 85; Pulse 97; Resp 18; Pulse Ox 98% ; ko1 19:30 BP 113 / 52; Pulse 70; Resp 16; Pulse Ox 94% on R/A; jb4 20:30 BP 115 / 52; Pulse 70; Resp 16; Pulse Ox 93% on R/A; jb4 MDM: 19:48 Patient medically screened. kdr 19:58 Data reviewed: vital signs, nurses notes, lab test result(s), radiologic studies. kdr Management of patient was discussed with the following: Primary Care Provider: I discussed the case with Dr. Frost he will admit the patient for further evaluation and treatment. 01/27 15:17 Order name: CBC with Diff; Complete Time: 16:03 ph 01/27 15:17 Order name: CMP; Complete Time: 16:03 ph 01/27 15:17 Order name: Lipase; Complete Time: 16:03 ph 01/27 15:17 Order name: Urinalysis w/ reflexes; Complete Time: 16:46 ph 01/27 16:03 Order name: Lactate w/ 2H reflex if indic.; Complete Time: 16:46 kdr 01/27 20:51 Order name: Osmolality, Serum EDMS 01/27 16:03 Order name: CT Abd/Pelvis - IV Contrast Only; Complete Time: 17:37 kdr 01/27 15:17 Order name: IV Saline Lock; Complete Time: 15:27 ph 01/27 15:17 Order name: Labs collected and sent; Complete Time: 15:27 ph Administered Medications: 16:17 Drug: Promethazine IVP 12.5 mg Route: IVP; Site: right antecubital; ko1 16:17 Drug: NS 0.9% IV 250 ml Route: IV; Rate: bolus; Site: right antecubital; ko1 16:19 Drug: morphine IVP or IV 2 mg Route: IVP; Infused Over: 4 mins; Site: right antecubital;ko1 Disposition Summary: 01/27/23 19:48 Hospitalization Ordered Hospitalization Status: Inpatient Admission kdr Provider: Jeremy Frost kdr Location: Telemetry/MedSurg (Inpatient) kdr Condition: Fair kdr Problem: an acute exacerbation kdr Symptoms: have improved kdr Bed/Room Type: Standard kdr Room Assignment: 404(01/27/23 19:49) cg Diagnosis - Weakness kdr - Hypo-osmolality and hyponatremia kdr - Abdominal pain, Generalized kdr - Altered mental status, unspecified kdr Forms: - Medication Reconciliation Form kdr - SBAR form kdr Signatures: Dispatcher [employer] EDMS Gurmeet Lopes MD MD kdr Inge Orr RN RN Neyda Flores RN RN cg Patricia Jordan RN RN ko1 Corrections: (The following items were deleted from the chart) 19:49 19:48 kdr cg
--- NOTE | 2023-01-27 19:49 | ER ---
Nurse's Notes [facility] Name: Larissa Wharton Age: 87 yrs Sex: Female : 1935 Arrival Date: 01/27/2023 Time: 14:09 Bed 8 Private MD: Diagnosis: Weakness;Hypo-osmolality and hyponatremia;Abdominal pain, Generalized;Altered mental status, unspecified Presentation: 01/27 14:20 Chief complaint: Patient's son or daughter states: She was discharged Friday from [facility] upstairs after SBO, started vomiting and belching again today. Pt reports lower abdominal pain and pain with urination, pt A\T\Ox2 to self and place, daughter reports pt normally sharp and able to verbalize date. Coronavirus screen: At this time, the client does not indicate any symptoms associated with coronavirus-19. Ebola Screen: No symptoms or risks identified at this time. Initial Sepsis Screen: Does the patient meet any 2 criteria? No. Patient's initial sepsis screen is negative. Does the patient have a suspected source of infection? No. Patient's initial sepsis screen is negative. Risk Assessment: Do you want to hurt yourself or someone else? Patient reports no desire to harm self or others. Onset of symptoms was January 27, 2023. 14:20 Method Of Arrival: Ambulatory [facility] 14:20 Acuity: SHELDON 3 jl7 Triage Assessment: 14:20 General: Appears in no apparent distress. uncomfortable, Behavior is calm, cooperative. jl7 Pain: Complains of pain in abdomen. GI: Reports lower abdominal pain, nausea, vomiting. Historical: - Allergies: 14:32 Cephalexin; ph 14:32 Dilantin; ph 14:32 Latex, Natural Rubber; ph 14:32 Phenytoin; ph - PMHx: 14:32 a fib; Dementia; Hypertensive disorder; Seizure; ph - Immunization history:: Adult Immunizations unknown. - Social history:: Smoking status: unknown. Screenin:33 [facility] ED Fall Risk Assessment (Adult) History of falling in the last 3 months, ph including since admission No falls in past 3 months (0 pts) Confusion or Disorientation Yes (5 pts) Intoxicated or Sedated No (0 pts) Impaired Gait Yes (1 pt) Mobility Assist Device Used Yes (1 pt) Altered Elimination Yes (1 pt) Score/Fall Risk Level 3 or more points = High Risk Oriented to surroundings, Maintained a safe environment, Hourly rounding (assess needs \T\ fall precautionary measures) done, Used ambulatory aids as needed (educated on \T\ assisted with). Abuse screen: Denies threats or abuse. Denies injuries from another. Nutritional screening: No deficits noted. Tuberculosis screening: No symptoms or risk factors identified. Assessment: 15:00 General: Appears distressed, uncomfortable, ill, Behavior is cooperative, appropriate ko1 for age, restless. Pain: Denies pain. Neuro: Oriented to person, place. Cardiovascular: No deficits noted. Respiratory: No deficits noted. GI: frequent belching Parent/caregiver reports the patient having bloating, gaseousness, nausea, vomiting. : Parent/caregiver report the patient having incontinence. EENT: No deficits noted. Derm: No deficits noted. Musculoskeletal: No deficits noted. 19:00 Reassessment: Pt is resting in bed with eyes closed, respirations are even and jb4 unlabored with no s/s of pain or distress noted. 20:00 Reassessment: Patient appears in no apparent distress at this time. No changes from jb4 previously documented assessment. Patient and/or family updated on plan of care and expected duration. Pain level reassessed. 20:30 Reassessment: Patient appears in no apparent distress at this time. No changes from jb4 previously documented assessment. Patient and/or family updated on plan of care and expected duration. Pain level reassessed. Vital Signs: 14:20 BP 167 / 98; Pulse 93; Resp 20; Temp 97.9; Pulse Ox 95% ; Weight 34.02 kg; jl7 14:59 BP 185 / 87; Pulse 93; Resp 16; Pulse Ox 96% on R/A; ko1 16:00 BP 175 / 81; Pulse 89; Resp 16; Pulse Ox 96% ; ko1 17:00 BP 173 / 79; Pulse 92; Resp 18; Pulse Ox 98% ; ko1 18:00 BP 170 / 85; Pulse 97; Resp 18; Pulse Ox 98% ; ko1 19:30 BP 113 / 52; Pulse 70; Resp 16; Pulse Ox 94% on R/A; jb4 20:30 BP 115 / 52; Pulse 70; Resp 16; Pulse Ox 93% on R/A; jb4 ED Course: 14:16 Patient arrived in ED. mr 14:20 Arm band placed on right wrist. jl7 14:24 Patricia Jordan, RN is Primary Nurse. ko1 14:31 Gurmeet Lopes MD is Attending Physician. kdr 14:34 Patient has correct armband on for positive identification. Bed in low position. Call ph light in reach. Side rails up X 1. Pulse ox on. NIBP on. 14:36 Triage completed. jl7 15:25 Inserted saline lock: 22 gauge in right antecubital area, using aseptic technique. ko1 Blood collected. 15:27 CBC with Diff Sent. ko1 15:27 CMP Sent. ko1 15:27 Lipase Sent. ko1 16:18 Lactate w/ 2H reflex if indic. Sent. ko1 16:33 Lactate w/ 2H reflex if indic. Sent. ko1 16:33 Urinalysis w/ reflexes Sent. ko1 16:45 CT Abd/Pelvis - IV Contrast Only In Process Unspecified. EDMS 18:00 No provider procedures requiring assistance completed. ko1 19:47 Jeremy Frost MD is Hospitalizing Provider. kdr 20:30 Patient admitted, IV remains in place. jb4 Administered Medications: 16:17 Drug: Promethazine IVP 12.5 mg Route: IVP; Site: right antecubital; ko1 16:17 Drug: NS 0.9% IV 250 ml Route: IV; Rate: bolus; Site: right antecubital; ko1 16:19 Drug: morphine IVP or IV 2 mg Route: IVP; Infused Over: 4 mins; Site: right antecubital;ko1 Medication: 20:30 VIS not applicable for this client. jb4 Outcome: 19:48 Decision to Hospitalize by Provider. kdr 21:03 Admitted to Tele accompanied by tech, via stretcher, room 404. jb4 21:03 Condition: stable 21:03 Discharge instructions given to family, Instructed on the need for admit, Demonstrated understanding of instructions. 21:04 Patient left the ED. jb4 Signatures: Dispatcher [employer] EDMS Gurmeet Lopes MD MD kdr Marroquin, Haylee mr OrrInge, RN Uvaldo Haro ph RN RN jb4 Tim Robert RN RN jl7 Patricia Jordan, RN RN ko1
[2023-01-27] MEDS ORDERED: PROMETHAZINE INJ 25 MG/ML AMP IV PRN (19:54)
[2023-01-27] MEDS ORDERED: ACETAMINOPHEN 500 MG TAB PO PRN (19:54)
[2023-01-27] MEDS ORDERED: levETIRAcetam 1,000 MG in NA CHLORIDE 0.9% 100 ML IV ONE (21:30)
--- NOTE | 2023-01-27 21:35 | P.HP ---
Certification for Inpatient Patient admitted to: Inpatient With expected LOS: >2 Midnights Practitioner: I am a practitioner with admitting privileges, knowledge of patient current condition, hospital course, and medical plan of care. Services: Services provided to patient in accordance with Admission requirements found in Title 42 Section 412.3 of the Code of Federal Regulations Patient History Date of Service: 01/27/23 Reason for admission: CONFUSION History of Present Illness: PER DAUGHTER MS MONAE WAS DOING GREAT ON FRIDAY AND FRIDAY BUT WOKE UP CONFUSED AND PARADNOID THIS AM. SHE HAS DELUSIONS ABOUT [employer] STEALING FROM HER, SOMEONE HAVING STAGE 4 CANCER ETC. SHE IS WEAK AND NOT ABLE TO WALK. Allergies latex [Latex] Allergy (Intermediate, Verified 11/10/13 01:26) Hives/Rash cephalexin [From Keflex] Adverse Reaction (Intermediate, Verified 11/24/21 22:43) AGITATION phenytoin [From Dilantin] Adverse Reaction (Intermediate, Verified 11/24/21 22:43) AGITATION Home Medications: Acetaminophen 500 mg PO Q6H PRN 05/04/22 Aspirin [Aspirin EC] 81 mg PO DAILY 05/04/22 Biotin 5 mg PO DAILY 05/04/22 Calcium Carb, Citrate/Vit D3 [Citracal-D3 ER 600 mg-500 Unit] 2 tab PO BID 05/04/22 Glucos Sul 2Kcl/MSM/Chond/C/Mn [Glucosamine Chondroitin Cap] 1 cap PO BID 05/04/22 Levetiracetam [Keppra] 250 mg PO BID 05/04/22 Memantine HCl 5 mg PO BID 05/04/22 Multivitamin [Daily Nicole] 1 tab PO DAILY 05/04/22 Ondansetron [Zofran (Odt)*] 4 mg PO Q4H PRN 05/04/22 Propylene Glycol/Peg 400/Pf [Systane 0.3-0.4% Eye Drop] 1 gtt OPTH BID 05/04/22 Spironolactone 50 mg PO DAILY 05/04/22 Triamcinolone Acetonide 1 appl TOP Q12H PRN 05/04/22 Venlafaxine HCl [Venlafaxine HCl ER] 1 cap PO DAILY 05/04/22 Vit C/E/Zn/Coppr/Lutein/Zeaxan [Preservision Areds 2 Softgel] 2 cap PO DAILY 05/04/22 Clopidogrel Bisulfate [Plavix] 75 mg PO DAILY 01/14/23 Metoprolol Succinate 25 mg PO DAILY 01/14/23 Pantoprazole [Protonix Tab*] 40 mg PO DAILY 01/14/23 Clonidine Patch [Catapres-Tts 3*] 0.3 mg TD EVERY 7TH DAY #4 01/24/23 Lactulose [Cephulac*] 30 ml PO DAILY PRN #1000 ml 01/24/23 - Past Medical/Surgical History Diabetic: No -: HTN -: Bladder urgency -: rt knee sx, rt breast mass removal, cholecystectomy, -: HLD, Hiatal hernia, GERD, -: Seizures -: Atrial fib -: CHF -: Right knee SX -: Latia -: Breast Reduction -: foot sx -: wrist sx - Social History Alcohol use: No CD- Drugs: No Caffeine use: No Review of Systems 10-point ROS is otherwise unremarkable General: Weakness Neurological: Confusion, As per HPI Physical Examination - Physical Exam General: Oriented x1 (SHE RECOGNIZED ME BUT NOT ORIENTED TO PLACE AND TIME. ), Moderate distress HEENT: Atraumatic, PERRLA, Mucous membr. moist/pink, EOMI, Sclerae nonicteric Neck: Supple, 2+ carotid pulse no bruit, No LAD, Without JVD or thyroid abnormality Respiratory: Clear to auscultation bilaterally, Normal air movement Cardiovascular: Regular rate/rhythm, Normal S1 S2 Gastrointestinal: Normal bowel sounds, No tenderness Musculoskeletal: No tenderness Integumentary: No rashes Neurological: Normal speech, Other (TENDS TO PLC ENGINEER HARD WHEN TALKING THAT DOES NOT MAKE SENSE.) Lymphatics: No axilla or inguinal lymphadenopathy - Studies Laboratory Data (last 24 hrs) 01/27/23 15:20: Sodium 122 L, Potassium 4.8, BUN 25 H, Creatinine 1.14 H, Glucose 107 H, Total Bilirubin 0.3, AST 44 H, ALT 41, Alkaline Phosphatase 125 H, Lipase 36 01/27/23 15:20: WBC 10.50, Hgb 10.3 L, Hct 31.4 L, Plt Count 318 Assessment and Plan - Problems (Diagnosis) (1) Atypical seizure Current Visit: Yes Status: Acute Plan: THIS CAN BE THE MAIN REASON FOR HER CONFUSION. I WILL LOAD HER WITH KEPPRA SHE IS ON SMALL DOSE ALREADY. DR. HAWLEY [place]. EEG DOES NOT HELP THIS SITUATION USUALLY. 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 UREA AND URIC ACID CHECK. CLINICALLY SHE LOOKS SLIGHTLY DEHYRATED. USUALLY SIADH IS EUVOLEMIC THERE MAY BE MULTIFACTORIAL ETIOLOGY. - Advance Directives Does patient have a Living Will: Yes Does patient have a Durable POA for Healthcare: Yes
[2023-01-27] MEDS: NA CHLORIDE 0.9% 1,000 ML IV SCH (22:54)
[2023-01-28 01:57] VITALS: BMI 29.2
[2023-01-28] MEDS ORDERED: ONDANSETRON 4 MG (ODT) TAB PO PRN (06:29)
[2023-01-28] MEDS: MEMANTINE HCL 10 MG TABLET PO SCH ×2 (08:46→20:10)
[2023-01-28] MEDS: FAMOTIDINE 20 MG TAB PO SCH (08:46)
[2023-01-28] MEDS: VENLAFAXINE HCL XR 75 MG CAP PO SCH (08:46)
[2023-01-28] MEDS: CLOPIDOGREL 75 MG TABLET PO SCH (08:46)
[2023-01-28] MEDS: METOPROLOL XL 25 MG TAB PO SCH (08:46)
[2023-01-28] MEDS: ASPIRIN EC 81 MG TAB PO SCH (08:47)
[2023-01-28] MEDS: levETIRAcetam 500 MG TAB PO SCH ×2 (08:47→20:10)
[2023-01-28] MEDS: PROPYLENE GLYCOL OPTH SCH ×2 (09:00→21:00)
[2023-01-28] MEDS: POLYETHYLENE GLYCOL 400 OPTH SCH ×2 (09:00→21:00)
--- NOTE | 2023-01-28 09:46 | RAD REPORT ---
EXAM DESCRIPTION: CT - Head Brain Wo Cont - 01/28/2023 9:35 am CLINICAL HISTORY: AMS COMPARISON: Head Brain Wo Cont dated 12/22/2021 TECHNIQUE: All CT scans are performed using dose optimization technique as appropriate and may inclu de automated exposure control or mA/KV adjustment according to patient size. FINDINGS: No intracranial hemorrhage, hydrocephalus or extra-axial fluid collection.No areas of brai n edema or evidence of midline shift. Chronic small vessel ischemic changes. Question remote medial l eft parietal infarct. Carotid artery calcifications. . The paranasal sinuses and mastoids are clear. The calvarium is intact. IMPRESSION: No acute intracranial abnormality.
--- NOTE | 2023-01-28 12:47 | P.PN ---
Subjective Date of Service: 01/28/23 Chief Complaint: CONFUSION Subjective: No new changes SHE STILL HAS PARANOIA AND CONFUSED ABOUT EVERY ONE IS TRYING TO KILL HER. SHE LATER STARTED LAUGHING WHEN SHE RECOGNIZED ME. SHE HAS NO PAIN. SHEIS WEAK. Physical Examination - Vital Signs Temperature: 96.8 F Blood Pressure: 121/53 Pulse: 62 Respirations: 14 Pulse Ox (%): 92 - Physical Exam General: Oriented x2, Acute distress, Mild distress HEENT: Atraumatic, PERRLA, EOMI Neck: Supple, JVD not distended Respiratory: Clear to auscultation bilaterally, Normal air movement Cardiovascular: Regular rate/rhythm, Normal S1 S2 Gastrointestinal: Normal bowel sounds, No tenderness Musculoskeletal: No tenderness Integumentary: No rashes Neurological: Normal speech, Abnormal strength (GEN WEAK,) Lymphatics: No axilla or inguinal lymphadenopathy - Studies Laboratory Data (last 24 hrs) 01/27/23 15:20: Sodium 122 L, Potassium 4.8, BUN 25 H, Creatinine 1.14 H, Glucose 107 H, Total Bilirubin 0.3, AST 44 H, ALT 41, Alkaline Phosphatase 125 H, Lipase 36 01/27/23 15:20: WBC 10.50, Hgb 10.3 L, Hct 31.4 L, Plt Count 318 Medications List Reviewed: Yes Assessment And Plan - Current Problems (Diagnosis) (1) Atypical seizure Current Visit: Yes Status: Acute Plan: THIS CAN BE THE MAIN REASON FOR HER CONFUSION. I WILL LOAD HER WITH KEPPRA SHE IS ON SMALL DOSE ALREADY. DR. HAWLEY IS [place]. EEG DOES NOT HELP THIS SITUATION USUALLY. KEPPRA LOADED DOSE RAISED ALSO. SHE IS NOT TWITCHING ANY LONGER. (2) Altered mental status Current Visit: No Status: Acute Plan: THIAMINE IV DAILY COULD BE POST ICTAL I SEE NO SIGNS OF INFECTION UA NEG. C T BRAIN NEG. WBC NORMAL. 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 UREA AND URIC ACID CHECK. CLINICALLY SHE LOOKS SLIGHTLY DEHYRATED. USUALLY SIADH IS EUVOLEMIC THERE MAY BE MULTIFACTORIAL ETIOLOGY. S OSM IS LOW. U OSM IS HIGH U SOD IS LOW. IN SIADH USUALLY U SOD IS HIGH. SHE HAS SOME HYPOVOLEMIC STATE SUGGESTIVE OF DEHYDRATION RATHER THAN SIADH THIS ADMISSION.
[2023-01-28] MEDS: NA CHLORIDE 0.9% 1,000 ML IV SCH (17:05)
[2023-01-28] MEDS: TAMSULOSIN 0.4 MG SR CAP PO SCH (17:05)
[2023-01-29 04:09] LABS: Absolute Lymphocytes (CBC) 1.7 K/uL (0.7-4.9); Hematocrit 28.2 % (36.0-45.0); Lymphocytes % 15.5 % (15.3-44.8); MCV 90.7 fL (80-100); MPV 8.5 fL (7.6-11.3); RBC Red Blood Cell Count 3.11 M/uL (3.86-4.86)
[2023-01-29 04:19] LABS: Potassium 4.5 mEq/L (3.5-5.1)
[2023-01-29] MEDS: LACTULOSE 20 GM/30 ML UCUP PO SCH (08:31)
[2023-01-29] MEDS: METOPROLOL XL 25 MG TAB PO SCH (08:32)
[2023-01-29] MEDS: levETIRAcetam 500 MG TAB PO SCH ×2 (08:33→20:30)
[2023-01-29] MEDS: VENLAFAXINE HCL XR 75 MG CAP PO SCH (08:33)
[2023-01-29] MEDS: ASPIRIN EC 81 MG TAB PO SCH (08:33)
[2023-01-29] MEDS: CLOPIDOGREL 75 MG TABLET PO SCH (08:33)
[2023-01-29] MEDS: FAMOTIDINE 20 MG TAB PO SCH (08:33)
[2023-01-29] MEDS: MEMANTINE HCL 10 MG TABLET PO SCH ×2 (08:33→20:30)
[2023-01-29] MEDS: PROPYLENE GLYCOL OPTH SCH ×2 (09:00→20:14)
[2023-01-29] MEDS: POLYETHYLENE GLYCOL 400 OPTH SCH ×2 (09:00→20:14)
[2023-01-29] MEDS: NA CHLORIDE 0.9% 1,000 ML IV SCH (12:00)
[2023-01-29] MEDS: TAMSULOSIN 0.4 MG SR CAP PO SCH (16:56)
--- NOTE | 2023-01-29 21:34 | P.PN ---
Subjective Date of Service: 01/29/23 Chief Complaint: CONFUSION Subjective: Improving SHE STILL HAS PARANOIA AND CONFUSED ABOUT EVERY ONE IS TRYING TO KILL HER. SHE LATER STARTED LAUGHING WHEN SHE RECOGNIZED ME. SHE HAS NO PAIN. SHEIS WEAK. SHEIS LOT MORE AWAKE SHE IS NOT PARANOID TODAY. Review of Systems 10-point ROS is otherwise unremarkable General: Weakness Physical Examination - Vital Signs Temperature: 96.4 F Blood Pressure: 187/91 Pulse: 62 Respirations: 18 Pulse Ox (%): 93 - Physical Exam General: Oriented x3, Mild distress HEENT: Atraumatic, PERRLA, EOMI Neck: Supple, JVD not distended Respiratory: Clear to auscultation bilaterally, Normal air movement Cardiovascular: Regular rate/rhythm, Normal S1 S2 Gastrointestinal: Normal bowel sounds, No tenderness Musculoskeletal: No tenderness Integumentary: No rashes Neurological: Normal speech, Normal tone, Normal affect Lymphatics: No axilla or inguinal lymphadenopathy - Studies Medications List Reviewed: Yes Assessment And Plan - Current Problems (Diagnosis) (1) Atypical seizure Current Visit: Yes Status: Acute Plan: THIS CAN BE THE MAIN REASON FOR HER CONFUSION. I WILL LOAD HER WITH [facility] SHE IS ON SMALL DOSE ALREADY. DR. HAWLEY [place]. EEG DOES NOT HELP THIS SITUATION USUALLY. [facility] HIGHER DOSE SHOULD HELP SHE IS NO PARANOID AND NOT TWITCHING TODAY. (2) Altered mental status Current Visit: No Status: Acute Plan: THIAMINE IV DAILY COULD BE POST ICTAL I SEE NO SIGNS OF INFECTION UA NEG. C T BRAIN NEG. WBC NORMAL. 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 UREA AND URIC ACID CHECK. CLINICALLY SHE LOOKS SLIGHTLY DEHYRATED. USUALLY SIADH IS EUVOLEMIC THERE MAY BE MULTIFACTORIAL ETIOLOGY. S OSM IS LOW. U OSM IS HIGH U SOD IS LOW. IN SIADH USUALLY U SOD IS HIGH. SHE HAS SOME HYPOVOLEMIC STATE SUGGESTIVE OF DEHYDRATION RATHER THAN SIADH THIS ADMISSION. SODIUM IS 128 NOW WILL TRANSFER TO REHAB IN AM.
[2023-01-29] MEDS ORDERED: CLONIDINE 0.3 MG/PATCH TD SCH (22:00)
[2023-01-30 06:38] LABS: Absolute Lymphocytes (CBC) 1.3 K/uL (0.7-4.9); Hematocrit 29.4 % (36.0-45.0); Lymphocytes % 15.9 % (15.3-44.8); MCV 91.5 fL (80-100); MPV 8.4 fL (7.6-11.3); RBC Red Blood Cell Count 3.21 M/uL (3.86-4.86)
[2023-01-30 06:46] LABS: Potassium 4.7 mEq/L (3.5-5.1)
[2023-01-30] MEDS: NA CHLORIDE 0.9% 1,000 ML IV SCH (08:00)
[2023-01-30 08:01] VITALS: TEMP 96.8
[2023-01-30] MEDS: MEMANTINE HCL 10 MG TABLET PO SCH (08:12)
[2023-01-30] MEDS: ASPIRIN EC 81 MG TAB PO SCH (08:12)
[2023-01-30] MEDS: CLOPIDOGREL 75 MG TABLET PO SCH (08:12)
[2023-01-30] MEDS: levETIRAcetam 500 MG TAB PO SCH (08:12)
[2023-01-30] MEDS: VENLAFAXINE HCL XR 75 MG CAP PO SCH (08:12)
[2023-01-30] MEDS: POLYETHYLENE GLYCOL 400 OPTH SCH (08:13)
[2023-01-30] MEDS: LACTULOSE 20 GM/30 ML UCUP PO SCH (08:13)
[2023-01-30] MEDS: METOPROLOL XL 25 MG TAB PO SCH (08:13)
[2023-01-30] MEDS: FAMOTIDINE 20 MG TAB PO SCH (08:13)
[2023-01-30] MEDS: PROPYLENE GLYCOL OPTH SCH (08:13)
[2023-01-30 09:22] VITALS: O2SAT 98
[2023-01-30 09:32] VITALS: BP 170/80
--- NOTE | 2023-02-05 17:53 | P.DS ---
Admission Date: 01/27/23 Discharge Date: 02/05/23 Disposition: TRANSFER TO INPATIENT REHAB Discharge Condition: FAIR Reason for Admission: CONFUSION - Problems (1) Atypical seizure Status: Acute (2) Altered mental status Status: Acute Qualifiers: Altered mental status type: delirium Qualified Code(s): R41.0 - Disorientation, unspecified (3) SIADH (syndrome of inappropriate ADH production) Status: Chronic Brief History of Present Illness: PER DAUGHTER MS MONAE WAS DOING GREAT ON FRIDAY AND FRIDAY BUT WOKE UP CONFUSED AND PARADNOID THIS AM. SHE HAS DELUSIONS ABOUT [employer] STEALING FROM HER, SOMEONE HAVING STAGE [employer] CANCER ETC. SHE IS WEAK AND NOT ABLE TO WALK. Hospital Course: DHIRAJ CAME WITH CONFUSION, HYPONATREMIA, DEHYDRATION. I SUSPECT THIS TIME SHE HAD ATYPICAL SEIZURE AND SHE IMPROVED WELL AFTER LOADING OF KEPPRA AND THEN GOING UP TO 500 MG BID. HER DEHYDRATION IMPROVED AND SO DID SODIUM. SHE IS STABLE TO GO TO REHAB EXPECTED. Vital Signs/Physical Exam: Temp Pulse Resp BP Pulse Ox 96.8 F 64 14 170/80 H 98 01/30/23 08:00 01/30/23 09:32 01/30/23 08:00 01/30/23 09:32 01/30/23 08:00 Laboratory Data at Discharge: WBC 8.40 thou/uL (4.3-10.9) 01/30/23 06:00 Hgb 9.7 g/dL (12.0-15.0) L 01/30/23 06:00 Hct 29.4 % (36.0-45.0) L 01/30/23 06:00 Plt Count 267 thou/uL (152-406) 01/30/23 06:00 Sodium 131 mEq/L (136-145) L 01/30/23 06:00 Potassium 4.7 mEq/L (3.5-5.1) 01/30/23 06:00 BUN 20 mg/dL (7-18) H 01/30/23 06:00 Creatinine 0.82 mg/dL (0.55-1.02) 01/30/23 06:00 Glucose 96 mg/dL (74-106) 01/30/23 06:00 Uric Acid 5.4 mg/dL (2.6-6.0) 01/27/23 20:25 Total Bilirubin 0.3 mg/dL (0.2-1.0) 01/27/23 15:20 AST 44 U/L (15-37) H 01/27/23 15:20 ALT 41 U/L (13-56) 01/27/23 15:20 Alkaline Phosphatase 125 U/L (45-117) H 01/27/23 15:20 Lipase 36 U/L (13-75) 01/27/23 15:20 Home Medications: Aspirin [Aspirin EC] 81 mg PO DAILY 05/04/22 Biotin 5 mg PO DAILY 05/04/22 Calcium Carb, Citrate/Vit D3 [Citracal-D3 ER 600 mg-500 Unit] 2 tab PO BID 05/04/22 Memantine HCl 5 mg PO BID 05/04/22 Multivitamin [Daily Nicole] 1 tab PO DAILY 05/04/22 Ondansetron [Zofran (Odt)*] 4 mg PO Q4H PRN 05/04/22 Propylene Glycol/Peg 400/Pf [Systane 0.3-0.4% Eye Drop] 1 gtt OPTH BID 05/04/22 Triamcinolone Acetonide 1 appl TOP Q12H PRN 05/04/22 Venlafaxine HCl [Venlafaxine HCl ER] 1 cap PO DAILY 05/04/22 Vit C/E/Zn/Coppr/Lutein/Zeaxan [Preservision Areds 2 Softgel] 2 cap PO DAILY 05/04/22 Clopidogrel Bisulfate [Plavix] 75 mg PO DAILY 01/14/23 Pantoprazole [Protonix Tab*] 40 mg PO DAILY 01/14/23 Famotidine [Pepcid*] 1 mg PO DAILY 01/28/23 Metoprolol Succinate [Toprol Xl*] 25 mg PO DAILY 01/28/23 Tamsulosin [Flomax*] 0.4 mg PO DAILY 6PM 01/28/23 Clonidine Patch [Catapres-Tts 3*] 0.3 mg TD Q7D@2200 01/30/23 levETIRAcetam [Keppra] 500 mg PO BID #60 02/05/23 Followup: Jeremy Frost MD [Primary Care Provider] - (notify Dr when you are out of rehab )
== END 2023-01-30 11:01 | DRG 644 ==
LOC: ER 14:09 → ERHOLD 18:28 → 4TH 20:05
PROVIDERS: ADMIT Internal Medicine; ATTEND Internal Medicine
DX: E22.2 Syndrome of inappropriate secretion of antidiuretic hormone (principal); G40.89 Other seizures; E86.0 Dehydration; E78.5 Hyperlipidemia, unspecified; I48.91 Unspecified atrial fibrillation; K21.9 Gastro-esophageal reflux disease without esophagitis; F03.90 Unspecified dementia, unspecified severity, without behavioral disturbance, psychotic disturbance, mood disturbance, and anxiety; Z88.1 Allergy status to other antibiotic agents; Z90.49 Acquired absence of other specified parts of digestive tract; Z79.82 Long term (current) use of aspirin; Z79.02 Long term (current) use of antithrombotics/antiplatelets; Z91.040 Latex allergy status; Z79.899 Other long term (current) drug therapy
CPT/HCPCS: 36415; 70450; 74177; 80048; 80053; 81003; 83605; 83690; 83930; 83935; 84300; 84550; 85025; 94760; 96374; 96375; 97116; 97161; 97530; 99285; J1953; J2270; J2550; J7030; J7050; Q9967

== ENCOUNTER 2023-01-28 13:07 | Inpatient (IN) | payer OTHER ==
[2023-01-28 06:08] LABS: Absolute Lymphocytes (CBC) 1.9 K/uL (0.7-4.9); Hematocrit 28.4 % (36.0-45.0); Lymphocytes % 24.5 % (15.3-44.8); MCV 90.8 fL (80-100); MPV 8.5 fL (7.6-11.3); RBC Red Blood Cell Count 3.13 M/uL (3.86-4.86)
[2023-01-28 06:31] LABS: Potassium 4.3 mEq/L (3.5-5.1)
[2023-01-28 08:37] LABS: Platelet Estimate ADEQ
[2023-01-28 08:38] LABS: Blood Morphology Comment NOT SEEN (NOT SEEN)
[~2023-01-28 13:07] MED LIST: ACETAMINOPHEN 500 MG TAB PO PRN; NA CHLORIDE 0.9% 1,000 ML IV SCH; PROMETHAZINE INJ 25 MG/ML AMP IV PRN
[2023-01-29] MEDS ORDERED: CLONIDINE 0.3 MG/PATCH TD SCH (22:00)
--- OUTSIDE RECORDS SUMMARY | 2023-01-30 11:15 | XMS REPORT | Continuity of Care Document ---
:1935 Author Organization [facility] t Address [address] [place] [address] [address] [place] [address] Care Team Providers Name Role Phone Jeremy Frost Attending Clinician Unavailable ARLENE VOSS Attending Clinician Unavailable JATINDER GREEN Attending Clinician Unavailable BORIS DAMICO Attending Clinician Unavailable STEPHANIE RAO Admitting Clinician Unavailable Payers Payer Name Policy Type Policy Number Effective Date Expiration Date S davece UNITED MEDICARE [id number] 2022 [facility] 00:00:00 Problems Condition Condition Condition Status Onset Resolution Last Treating Co mments Source Name Details Category Date Date Treatment Clinician Date [id number] Anterior Problem Active Comm on dislocatio [facility] n [facility] left - [facility], [facility] Allergies, Adverse Reactions, Alerts Allergy Allergy Status Severity Reaction(s) Onset Inactive Treating Comm ents Source Name Type Date Date Clinician CEPHALEX Allergy Active 0 [facility] IN 09-14 00:00: 00 PHENYTOI Allergy Active [facility] N 09-14 00:00: 00 LATEX Allergy Active [facility] 09-14 00:00: 00 8091 Drug Active Unknown Common allergy [facility] Social History Social Habit Start Date Stop Date Quantity Comments Source History of Tobacco Use Co mmon [facility] Sex Assigned At Com mon [facility] Smoking Status Start Date Stop Date Source Never Smoker Common [facility] Medications Ordered Filled Start Stop Current [...] 13:30:00 139 mm[Hg] [facility] blood pressure 2022-04-17 13:30:00 60 mm[Hg] [facility] diastolic [facility] height 2022-04-17 13:30:00 60 [in_i] Common [facility] weight 2022-04-17 13:30:00 141.4 [lb_av] [facility] temperature 2022-04-17 13:30:00 97.4 [degF] Common [facility] bmi 2022-04-17 13:30:00 27.61 kg/m2 Common [facility] height 2022-03-18 13:30:00 60 [in_i] [facility] weight 2022-03-18 13:30:00 140 [lb_av] [facility] bmi 2022-03-18 13:30:00 27.34 kg/m2 Common [facility] blood pressure 2022-03-18 13:30:00 130 mm[Hg] [facility] blood pressure 2022-03-18 13:30:00 78 mm[Hg] [facility] height 2022-02-25 15:30:00 60 [in_i] Common [facility] weight 2022-02-25 15:30:00 140 [lb_av] [facility] bmi 2022-02-25 15:30:00 27.34 kg/m2 [facility] blood pressure 2022-02-25 15:30:00 128 mm[Hg] [facility] blood pressure 2022-02-25 15:30:00 74 mm[Hg] [facility] Procedures This patient has no known procedures. Encounters Start End Encounter Admission Attending Care Care Encounter Source Date/Time Date/Time Type Type Clinicians Facility Department ID 2022-09-13 Inpatient ER [facility] Cardiology [id number] 15:18:50 [facility] 2022-03-18 Outpatient Santosh STYOSSI [facility] [id number] Common 13:21:02 Jeremy [facility] 2022-02-25 Outpatient Santosh [facility] ST[facility] [id number] Common 14:49:02 Jeremy [id number] [facility] 2022-10-01 2022-10-01 Outpatient CJ [facility]WELL [facility] [id number] SLE 11:24:26 11:24:26 ARLENE 2022-09-14 2022-09-27 Inpatient ER CJ GREEN Emergency [id number] SLE 00:53:00 10:23:00 AMER 2022-04-17 2022-04-17 OFFICE [facility] STLC [id number] Co mmon 00:00:00 00:00:00 VISIT EST Spir it PT LEVEL [address] [place] [address] 2022-03-18 2022-03-18 OFFICE STLMLC STLMLC [id number] Co mmon 00:00:00 00:00:00 VISIT EST Spir it PT LEVEL [address] [place] [address] 2022-02-25 2022-02-25 OFFICE STLMLC STLMLC [id number] Co mmon 00:00:00 00:00:00 VISIT NEW Spir it PT LEVEL [address] [place] [address] Results Test Description Test Time Test Comments Results Result Comments Source B-TYPE NATRIURETIC FACTOR (BNP) 2022-10-01 14:55:11 Test Item Value Reference Range Interpretation Comme nts B-TYPE NATRIURETIC PEPTIDE (BEAKER) (test code = 700) 544 pg/mL 0-100 H Parts Casting Machine Operator [facility] [id number] 14:42:47 Test Item Value Reference Range Interpretation [...] not appl icable for dialysis patien ts [employer] Casting Machine Operator ID - JANCBC W/PLT COUNT & AUTO [id number] 14:28:26 Test Item Value Reference Range Interpretation [...] CONCENTRATION Adequate (CELLAVISION)(BEAKER) (test code = 3438) Parts Casting Machine Operator ID - Donita Bond comments: Slide comments:CBC W/PLT COUNT & AUTO [id number] 06:52:52 Test Item Value Reference Range Interpretation [...] 0-0 CELLS (BEAKER) (test code = 413) [id number] 05:48:13 Test Item Value Reference Range Interpretation Comments PHOSPHORUS (BEAKER) (test code = 2.8 mg/dL 2.3-4.7 604) Parts Casting Machine Operator ID - PIAYA LCOMPREHENSIVE METABOLIC [id number] 05:48:12 Test Item Value Reference Range Interpretation [...] not appl icable for dialysis patien ts Parts Casting Machine Operator ID - SHWETA [id number] 05:48:12 Test Item Value Reference Range Interpretation Comments MAGNESIUM (BEAKER) (test code = 1.7 mg/dL 1.6-2.6 627) Parts Casting Machine Operator ID - SHWETA LCALCIUM, [id number] 05:28:17 Test Item Value Reference Range Interpretation [...] CONCENTRATION Adequate (CELLAVISION)(BEAKER) (test code = 3438) Parts Casting Machine Operator ID - Jeff comments: Slide comments:CBC W/PLT COUNT & AUTO [id number] 08:04:51 Test Item Value Reference Range Interpretation [...] WBC 0-0 (BEAKER) (test code = 413) [id number] 06:26:33 Test Item Value Reference Range Interpretation Comments PHOSPHORUS (BEAKER) (test code = 4.2 mg/dL 2.3-4.7 604) Parts Casting Machine Operator ID - BSCOMPREHENSIVE METABOLIC [id number] 06:26:32 Test Item Value Reference Range Interpretation [...] not appl icable for dialysis patien ts Parts Casting Machine Operator ID - [id number] 06:26:32 Test Item Value Reference Range Interpretation Comments MAGNESIUM (BEAKER) (test code = 1.7 mg/dL 1.6-2.6 627) Parts Casting Machine Operator ID - BSCALCIUM, [id number] 05:32:39 Test Item Value Reference Range Interpretation Comments CALCIUM IONIZED (BEAKER) (test 1.12 mmol/L 1.12-1.27 code = 698) PH, BLOOD (BEAKER) (test code = 7.35 1810) [id number] 14:44:24 Test Item Value Reference Range Interpretation Comments ACTIVATED CLOTTING TIME 359 sec : 74 -137 seconds, (BEAKER) (test code = Baseli ne: TESTED AT 441) [facility] [address] [facility], [address] 30: Parts Casting Machine Operator/Techni juve ID = [id number] for Ho Lia montoya [id number] 14:31:34 Test Item Value Reference Range Interpretation Comments ACTIVATED CLOTTING TIME 299 sec : 74 -137 seconds, (BEAKER) (test code = Baseli ne: TESTED AT 441) [address], [facility] 30: Parts Casting Machine Operator/Techni juve ID = [id number] for CA RPIO, GARCÍA CT, CTA, [id number] 10:55:00TAVR protocolUnlisted Reason for Exam - Click Yes and Enter Reason Below->No [facility] : 1935 Sex: FAddendum [...] months if no change Signed: Alexa Castelan [facility] Verified Date/Time:09/25/2022 10:55:42 Reading Location: [place] [address] Angio Body Reading RoomAddendum EndsFINAL REPORT CT [...] 3-D volume-rendering reconstruction was performed using an Digicompanion workstation interactively by the interpreting physician as [...] The angle of delivery is RAFAL 33 BREADMAN 10. The minimal and perpendicular abdominal aortic [...] measures 6.5 and 8.3 mm, respectively with yube-zx-sxsppmaq tortuosity and milddiffuse calcific atherosclerosis present. The [...] An addendum will be dictated by the Auditing Coder Radiologist regarding the nonvascular findings. THE REPORT WILL ONLY BE CONSIDERED COMPLETEAFTER THE ADDENDUM HAS BEEN DICTATED. Signed: Jose Porter MDReport Verified Date/Time: 09/24/2022 16:14:27 CT, CTA ABDOMEN 2022-09-25 10:55:00TAVR protocolUnlisted Reason for Exam - Click Yes and Enter Reason Below->No [facility] 1935 Sex: FAddendum [...] Castelan MDReport Verified Date/Time:09/25/2022 10:55:42 Reading Location: [place] [address] Angio Body Reading RoomAddendum EndsFINAL REPORT CT [...] 3-D volume-rendering reconstruction was performed using an Digicompanion workstation interactively by the interpreting physician as well as the 3-D specialist foroptimal visualisation of the thoracoabdominal aorta, the pelvic arteries as well as its proximal branches. Please refer to the contrast sheet scanned in the [employer] system for the amount and route of [...] The angle of delivery is RAFAL 33 BREADMAN 10. The minimal and perpendicular abdominal aortic [...] measures 6.5 and 8.3 mm, respectively with hpmp-fj-ogshthjs tortuosity and milddiffuse calcific atherosclerosis present. The [...] An addendum will be dictated by the Auditing Coder Radiologist regarding the nonvascular findings. THE REPORT WILL ONLY BE CONSIDERED COMPLETE AFTER THE ADDENDUM HAS BEEN DICTATED. Signed: Jose Porter MDReport Verified Date/Time: 09/24/2022 16:14:27 PHOSPHOR 2022-09-25 05:36:19 Test Item Value Reference Range Interpretation Comments PHOSPHORUS (BEAKER) (test code = 4.5 mg/dL 2.3-4.7 604) Parts Casting Machine Operator ID - EDGAR [facility]ABOL[facility] [id number] 05:36:18 Test Item Value Reference Range Interpretation [...] not appl icable for dialysis patien ts Parts Casting Machine Operator ID - EDGAR [id number] 05:36:18 Test Item Value Reference Range Interpretation Comments MAGNESIUM (BEAKER) (test code = 1.6 mg/dL 1.6-2.6 627) Parts Casting Machine Operator ID - EDGAR GCBC W/PLT COUNT & AUTO [id number] 04:36:47 Test Item Value Reference Range Interpretation [...] PERCENT (BEAKER) (test code = 2801) CALCIUM, [id number] 04:20:23 Test Item Value Reference Range Interpretation Comments CALCIUM IONIZED (BEAKER) (test 1.12 mmol/L 1.12-1.27 code = 698) PH, BLOOD (BEAKER) (test code = 7.45 1810) BASIC METABOLIC [id number] 20:54:15 Test Item Value Reference Range Interpretation [...] not appl icable for dialysis patien ts Parts Casting Machine Operator ID - [id number] 06:14:55 Test Item Value Reference Range Interpretation Comments MAGNESIUM (BEAKER) (test code = 1.8 mg/dL 1.6-2.6 627) Parts Casting Machine Operator ID - BSBASIC METABOLIC [id number] 06:14:54 Test Item Value Reference Range Interpretation [...] not appl icable for dialysis patien ts Parts Casting Machine Operator ID - BSCBC W/PLT COUNT & AUTO [id number] 06:10:46 Test Item Value Reference Range Interpretation [...] 0.00-1.00 PERCENT (BEAKER) (test code = 2801) [id number] 05:58:46 Test Item Value Reference Range Interpretation Comments MAGNESIUM (BEAKER) (test code = 1.7 mg/dL 1.6-2.6 627) Parts Casting Machine Operator ID - MARCOBASIC METABOLIC [id number] 05:58:45 Test Item Value Reference Range Interpretation [...] not appl icable for dialysis patien ts Parts Casting Machine Operator ID - MARCOCBC W/PLT COUNT & AUTO [id number] 05:27:09 Test Item Value Reference Range Interpretation [...] (BEAKER) (test code = 2801) BASIC METABOLIC [id number] 09:23:32 Test Item Value Reference Range Interpretation [...] not appl icable for dialysis patien ts Parts Casting Machine Operator ID - JOSEY D, CHEST, 1 VIEW, NON [id number] 07:39:00Reason for exam:->EdemaShould this be performed at the bedside?->Yes [facility] : 1935 Sex: FFINAL REPORTPATIENT ID: [id number] RAD, CHEST, 1 VIEW, NON DEPT INDICATION: [...] pg/mL 0-100 H (test code = 700) Parts Casting Machine Operator BHUPENDRA - JOSEY SCBC W/PLT COUNT & AUTO [id number] 06:54:55 Test Item Value Reference Range Interpretation [...] 0.00-1.00 PERCENT (BEAKER) (test code = 2801) [id number] 21:49:47 Test Item Value Reference Range Interpretation Comments SODIUM (BEAKER) (test code = 381) 134 meq/L 136-145 L POTASSIUM (BEAKER) (test code = 4.8 meq/L 3.5-5.1 379) CHLORIDE (BEAKER) (test code = 382) 106 meq/L 98-107 CO2 (BEAKER) (test code = 355) 22 meq/L 22-29 Parts Casting Machine Operator ID - JSCBC W/PLT COUNT & AUTO [id number] 18:53:43 Test Item Value Reference Range Interpretation [...] PERCENT (BEAKER) (test code = 2801) SARS-COV2/RT-PCR ([facility])2022-09-21 06:44:16 Test Item Value Reference Range Interpretation Comments SARS-COV2/RT-PCR Negative Negative The SARS-Co V-2 target (test code = nucleic acids a re not 6871710) detected in thi s specimen. Negative result [...] revoked sooner. Fact Sheet for Healthcare Providers: https://www.[employer] m/Documents/Xpert%20Xpress%20SARS%20CoV-2/Fact%20Sheets/302-3802%08QWPU-EDF-1%20 HEALTHCARE%20PROVIDERS%20FACT%20SHEET.pdf Fact Sheet for Healthcare Patients: https://www.[employer]/Documents/Xpert%20Xp ress%20SARS%20CoV-2/Fact%20Sheets/302-3801%75CHEE-DAP-6%20PATIENT%20FACT%20SHEET .[id number] 06:42:36 Test Item Value Reference Range Interpretation Comments PHOSPHORUS (BEAKER) (test code = 4.4 mg/dL 2.3-4.7 604) Parts Casting Machine Operator ID - PIAYA LCOMPREHENSIVE METABOLIC [id number] 06:42:35 Test Item Value Reference Range Interpretation [...] not appl icable for dialysis patien ts Parts Casting Machine Operator ID - SHWETA [id number] 06:42:35 Test Item Value Reference Range Interpretation Comments MAGNESIUM (BEAKER) (test code = 2.2 mg/dL 1.6-2.6 627) Parts Casting Machine Operator ID - SHWTEA LCALCIUM, [id number] 06:42:10 Test Item Value Reference Range Interpretation Comments CALCIUM IONIZED (BEAKER) (test 1.22 mmol/L 1.12-1.27 code = 698) PH, BLOOD (BEAKER) (test code = 7.34 1810) B-TYPE NATRIURETIC FACTOR (BNP)2022-09-21 06:39:34 Test Item Value Reference Range Interpretation Comments B-TYPE NATRIURETIC PEPTIDE (BEAKER) 234 pg/mL 0-100 H (test code = 700) Parts Casting Machine Operator ID - SHWETA LCBC W/PLT COUNT & AUTO [id number] 06:23:40 Test Item Value Reference Range Interpretation [...] PERCENT (BEAKER) (test code = 2801) OSMOLALITY, [id number] 07:29:00 Test Item Value Reference Range Interpretation Comments OSMOLALITY, SERUM (BEAKER) (test 298 mOsm/kg 275-295 H code = 615) [id number] 05:41:15 Test Item Value Reference Range Interpretation Comments MAGNESIUM (BEAKER) (test code = 2.5 mg/dL 1.6-2.6 627) Parts Casting Machine Operator ID Shraddha ROCK [id number] 05:41:15 Test Item Value Reference Range Interpretation Comments PHOSPHORUS (BEAKER) (test code = 3.9 mg/dL 2.3-4.7 604) Parts Casting Machine Operator ID - SHWETA LCOMPREHENSIVE METABOLIC [id number] 05:41:14 Test Item Value Reference Range Interpretation [...] not appl icable for dialysis patien ts Parts Casting Machine Operator ID - PIANA LBUN AND CREATININE [id number] 05:41:14 Test Item Value Reference Range Interpretation Comments BLOOD UREA 47 mg/dL 7-21 H NITROGEN (BEAKER) (test code = 354) CREATININE 1.25 mg/dL 0.57-1.25 (BEAKER) (test code = 358) BUN/CREAT RATIO 38 For a normal individual on (BEAKER) (test a normal diet , the code = reference inter mita for the [id number]) mass ratio rang es between 12:1 and [...] appl icable for dialysis patien ts CALCIUM, [id number] 05:23:20 Test Item Value Reference Range Interpretation Comments CALCIUM IONIZED (BEAKER) (test 1.19 mmol/L 1.12-1.27 code = 698) PH, BLOOD (BEAKER) (test code = 7.38 1810) CBC W/PLT COUNT & AUTO [id number] 05:07:15 Test Item Value Reference Range Interpretation [...] (BEAKER) (test code = 2801) U/S, RENAL, [id number] 12:20:00Reason for exam:->Acute kidney injury Should this be performed at the bedside?->Yes [facility] : 1935 Sex: FFINAL REPORTPATIENT ID: [id number] U/S, RENAL, COMPLETE CLINICAL HISTORY: Acute kidney [...] 09/19/2022 12:20:54 CBC W/PLT COUNT & AUTO [id number] 08:35:21 Test Item Value Reference Range Interpretation [...] CONCENTRATION Adequate (CELLAVISION)(BEAKER) (test code = 3438) Parts Casting Machine Operator ID - Nitish Dato-onUser comments: Slide comments:TSH/FREE T4 IF [id number] 07:01:04 Test Item Value Reference Range Interpretation Comments THYROID STIMULATING HORMONE 1.445 uIU/mL 0.350-4.940 (BEAKER) (test code = 772) Parts Casting Machine Operator ID - MARCOPROTHROMBIN TIME/[id number] 06:41:42 Test Item Value Reference Range Interpretation Comments PROTIME (BEAKER) 14.7 seconds 11.9-14.2 H (test code = 759) INR (BEAKER) (test 1.17 See_Comment [Automat ed message] code = 370) The system OKWave generated this result transmitted ref erence range: <=5.90. The reference range was not used to int erpret this result as normal/abnormal . RECOMMENDED COUMADIN/WARFARIN INR THERAPY RANGESSTANDARD DOSE: 2.0 - 3.0 Includes: PROPHYLAXIS for venous thrombosis, systemic embolization; TREATMENT for venous thrombosis and/or pulmonary embolus.HIGH RISK: Target INR is 2.5-3.5 for patients with mechanical heart valves.[id number] 06:39:36 Test Item Value Reference Range Interpretation Comments MAGNESIUM (BEAKER) (test code = 2.5 mg/dL 1.6-2.6 627) Parts Casting Machine Operator ID - [id number] 06:39:36 Test Item Value Reference Range Interpretation Comments PHOSPHORUS (BEAKER) (test code = 3.9 mg/dL 2.3-4.7 604) Parts Casting Machine Operator ID - MARCOBUN AND CREATININE [id number] 06:39:35 Test Item Value Reference Range Interpretation Comments BLOOD UREA 52 mg/dL 7-21 H NITROGEN (BEAKER) (test code = 354) CREATININE 1.35 mg/dL 0.57-1.25 H (BEAKER) (test code = 358) BUN/CREAT RATIO 39 For a normal individual on (BEAKER) (test a normal diet , the code = reference inter mita for the [id number]) mass ratio rang es between 12:1 and [...] icable for dialysis patien ts COMPREHENSIVE METABOLIC [id number] 06:39:35 Test Item Value Reference Range Interpretation [...] not appl icable for dialysis patien ts Parts Casting Machine Operator ID - MARCOCALCIUM, [id number] 06:21:54 Test Item Value Reference Range Interpretation Comments CALCIUM IONIZED (BEAKER) (test 1.16 mmol/L 1.12-1.27 code = 698) PH, BLOOD (BEAKER) (test code = 7.44 1810) RAD, CHEST, 1 VIEW, NON [id number] 03:08:00Reason for exam:- >pacemaekrShould this be performed at the bedside?->Yes [facility] : 1935 Sex: FFINAL REPORT RAD, CHEST, 1 VIEW, NON DEPT INDICATION: pacemaker COMPARISON: 09/14/2022 FINDINGS: Portable frontal view of the chest. 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 Lungs and pleura: No airspace consolidation or effusion. No pneumothorax. Heart and mediastinum: Stable contours. Additional findings: None. Signed: Juan C Barens MDReport Verified Date/Time: 09/19/2022 03:08:17 PROTEIN, RANDOM [id number] 19:06:39 Test Item Value Reference Range Interpretation Comments PROTEIN, URINE (BEAKER) (test code = < mg/dL 0-14 1569) Parts Casting Machine Operator ID - BSCREATININE, RANDOM [id number] 19:05:35 Test Item Value Reference Range Interpretation Comments CREATININE URINE (BEAKER) (test 52.5 mg/dL code = 375) Reference Range: No NormalsOperator ID - BSURINALYSIS W/ [id number] 18:18:02 Test Item Value Reference Range Interpretation [...] (test code Urine, Clean Catch = 2795) Parts Casting Machine Operator ID - [auto]Parts Casting Machine Operator ID - tech(CELLAVISION MANUAL DIFF)2022-09-18 [...] CONCENTRATION Adequate (CELLAVISION)(BEAKER) (test code = 3438) Parts Casting Machine Operator ID - Terri OverholtUser comments: Slide comments:CBC W/PLT COUNT & AUTO [id number] 11:46:27 Test Item Value Reference Range Interpretation [...] WBC 0-0 (BEAKER) (test code = 413) [id number] 07:01:21 Test Item Value Reference Range Interpretation Comments FERRITIN (BEAKER) (test code = 30.77 ng/mL 5.00-275.00 361) Parts Casting Machine Operator ID - EDGAR [id number] 06:47:19 Test Item Value Reference Range Interpretation Comments MAGNESIUM (BEAKER) (test code = 2.5 mg/dL 1.6-2.6 627) Parts Casting Machine Operator ID - [id number] 06:47:19 Test Item Value Reference Range Interpretation Comments PHOSPHORUS (BEAKER) (test code = 4.4 mg/dL 2.3-4.7 604) Parts Casting Machine Operator ID - BSCOMPREHENSIVE METABOLIC [id number] 06:47:18 Test Item Value Reference Range Interpretation [...] not appl icable for dialysis patien ts Parts Casting Machine Operator ID - BSCALCIUM, [id number] 06:45:36 Test Item Value Reference Range Interpretation [...] % 20-55 L (test code = 2590) Parts Casting Machine Operator ID - EDGAR GRETICULOCYTE [id number] 06:25:08 Test Item Value Reference Range Interpretation Comments RETICULOCYTE COUNT PCT (BEAKER) (test 2.4 % 0.5-1.7 H code = 575) Parts Casting Machine Operator ID - [id number] NITROGEN, RANDOM [id number] 13:38:55 Test Item Value Reference Range Interpretation Comments UREA NITROGEN URINE (BEAKER) (test 437 mg/dL code = 538) Reference Range: No NormalsOperator ID - PIAYA LCREATININE, RANDOM URINE 2022-09-17 13:38:54 Test Item Value Reference Range Interpretation Comments CREATININE URINE (BEAKER) (test 64.3 mg/dL code = 375) Reference Range: No NormalsOperator ID - PIAYA LSODIUM, RANDOM [id number] 13:38:54 Test Item Value Reference Range Interpretation Comments SODIUM URINE (BEAKER) (test code = 58 meq/L 243) Reference Range: No NormalsOperator ID - PIAYA [id number] 11:44:16 Test Item Value Reference Range Interpretation Comments ALBUMIN (BEAKER) (test 3.8 g/dL 3.5-5.0 Speci men slightly code = 1145) hemolyzed Parts Casting Machine Operator ID - DESTINEE(CELLAVISION MANUAL DIFF)2022-09-17 [...] CONCENTRATION Adequate (CELLAVISION)(BEAKER) (test code = 3438) Parts Casting Machine Operator ID - Donita Bond comments: Slide comments: PLT: Plt normal BASIC METABOLIC [id number] 06:55:33 Test Item Value Reference Range Interpretation [...] not appl icable for dialysis patien ts Parts Casting Machine Operator ID Shraddha HEBERT [id number] 06:53:22 Test Item Value Reference Range Interpretation Comments MAGNESIUM (BEAKER) 2.5 mg/dL 1.6-2.6 Specimen slightly (test code = 627) hemolyzed Parts Casting Machine Operator ID Shraddha HEBERT [id number] 06:53:22 Test Item Value Reference Range Interpretation Comments PHOSPHORUS (BEAKER) 5.1 mg/dL 2.3-4.7 H Specimen slightly (test code = 604) hemolyzed Parts Casting Machine Operator BHUPENDRA HEBERT WCBC W/PLT COUNT & AUTO [id number] 05:52:58 Test Item Value Reference Range Interpretation [...] 0-0 (BEAKER) (test code = 413) CALCIUM, [id number] 05:49:58 Test Item Value Reference Range Interpretation Comments CALCIUM IONIZED (BEAKER) (test 1.15 mmol/L 1.12-1.27 code = 698) PH, BLOOD (BEAKER) (test code = 7.40 1810) B-TYPE NATRIURETIC FACTOR (BNP)2022-09-16 20:13:37 Test Item Value Reference Range Interpretation Comments B-TYPE NATRIURETIC PEPTIDE (BEAKER) 160 pg/mL 0-100 H (test code = 700) Parts Casting Machine Operator ID - [id number] 04:37:24 Test Item Value Reference Range Interpretation Comments MAGNESIUM (BEAKER) (test code = 1.8 mg/dL 1.6-2.6 627) Parts Casting Machine Operator ID - PIAYA [id number] 04:37:24 Test Item Value Reference Range Interpretation Comments PHOSPHORUS (BEAKER) (test code = 4.1 mg/dL 2.3-4.7 604) Parts Casting Machine Operator ID - PIAYA LBASIC METABOLIC [id number] 04:37:23 Test Item Value Reference Range Interpretation [...] not appl icable for dialysis patien ts Parts Casting Machine Operator ID - PIAYA LCBC W/PLT COUNT & AUTO [id number] 03:48:23 Test Item Value Reference Range Interpretation [...] PERCENT (BEAKER) (test code = 2801) CALCIUM, [id number] 03:35:18 Test Item Value Reference Range Interpretation Comments CALCIUM IONIZED (BEAKER) (test 1.13 mmol/L 1.12-1.27 code = 698) PH, BLOOD (BEAKER) (test code = 7.43 1810) HIGH SENSITIVITY TROPONIN [id number] 08:28:29 Test Item Value Reference Range Interpretation Comments HIGH SENSITIVITY 37 pg/ml See_Comment H [Automated message] TROPONIN I (test code = The system which [id number]) generated this result transmitted ref erence range: <=17. Th e reference range was not used to int erpret this result as normal/abnormal . Parts Casting Machine Operator ID - EDGAR GThe SAW EDGE FUSER CIRCULAR STAT High Sensitivity Troponin-I results should be used in conjunction with other diagnostic information such as ECG, clinical observations and information, and patient symptoms to aid in the diagnosis of WI.[id number] 08:23:50 Test Item Value Reference Range Interpretation Comments MAGNESIUM (BEAKER) 2.0 mg/dL 1.6-2.6 Specimen slightly (test code = 627) hemolyzed Parts Casting Machine Operator ID - EDGAR GBASIC METABOLIC [id number] 08:23:30 Test Item Value Reference Range Interpretation [...] not appl icable for dialysis patien ts Parts Casting Machine Operator ID - EDGAR GRAD, CHEST, 1 VIEW, NON [id number] 03:11:00Reason for exam:->IRREGULAR HEART BEATShould this be performed at the bedside?->Yes [facility] DHIRAJ MONAE : 1935 Sex: FFINAL REPORTPATIENT ID: [id number] RAD, CHEST, 1 VIEW, NON DEPT CLINICAL STATEMENT: Irregular heartbeat. COMPARISON: Irregular heartbeat. FINDINGS: Heart is moderately enlarged. Aortic arch is mildly calcified. There is no focal lung consolidation or pleural effusion. No evidence of pulmonary edema or pneumothorax.IMPRESSION: No acute cardiopulmonary disease. Signed: Axel Oden Verified Date/Time: 09/14/2022 03:11:20 SARS-COV2/RT-PCR ([facility])2022-09-14 02:49:00 Test Item Value Reference Range Interpretation Comments SARS-COV2/RT-PCR Negative Negative The SARS-Co V-2 target (test code = nucleic acids a re not [id number]) detected in thi s specimen. Negative result [...] sooner. Fact Sheet for Healthcare Providers: https://www.cepheid.co m/Documents/Xpert%20Xpress%20SARS%20CoV-2/Fact%20Sheets/302-7436%04YHPE-XRW-2%20 HEALTHCARE%20PROVIDERS%20FACT%20SHEET.pdf Fact Sheet for Healthcare Patients: https://www.Fundly/Documents/Xpert%20Xp ress%20SARS%20CoV-2/Fact%20Sheets/302-3801%30ZVEE-LVK-3%20PATIENT%20FACT%20SHEET .pdfHIGH SENSITIVITY TROPONIN [id number] 02:25:22 Test Item Value Reference Range Interpretation Comments HIGH SENSITIVITY 31 pg/ml See_Comment H [Automated message] TROPONIN I (test code = The system which [id number]) generated this result transmitted ref erence range: <=17. Th e reference range was not used to int erpret this result as normal/abnormal . Parts Casting Machine Operator ID - EDGAR GThe SAW EDGE FUSER CIRCULAR STAT High Sensitivity Troponin-I results should be used in conjunction with other diagnostic information such as ECG, clinical observations and information, and patient symptoms to aid in the diagnosis of WI.BASIC METABOLIC [id number] 02:20:02 Test Item Value Reference Range Interpretation [...] not appl icable for dialysis patien ts Parts Casting Machine Operator ID - [id number] 02:19:41 Test Item Value Reference Range Interpretation Comments MAGNESIUM (BEAKER) 2.1 mg/dL 1.6-2.6 Specimen slightly (test code = 627) hemolyzed Parts Casting Machine Operator ID - ADMINCBC W/PLT COUNT & AUTO [id number] 02:00:18 Test Item Value Reference Range Interpretation [...]
[2023-01-30 11:39] VITALS: BMI 31.5
[2023-01-30] MEDS ORDERED: POLYETHYL GLY 3350 17 GM/DOSE PO PRN (12:43)
[2023-01-30] MEDS ORDERED: ACETAMINOPHEN 500 MG TAB PO PRN (13:06)
[2023-01-30] MEDS ORDERED: ONDANSETRON 4 MG (ODT) TAB PO PRN ×2 (13:10→20:42)
[2023-01-30] MEDS ORDERED: LACTULOSE 20 GM/30 ML UCUP PO PRN (13:12)
[2023-01-30] MEDS: TAMSULOSIN 0.4 MG SR CAP PO SCH (19:35)
[2023-01-30] MEDS: MEMANTINE HCL 10 MG TABLET PO SCH (19:36)
--- NOTE | 2023-01-30 19:59 | HP ---
Date of Admission: 01/30/2023 Time Of Service: 1 p.m. Chief Complaint: "I was been in the hospital long and became weak." History Of Present Illness: Ms. Wharton is an 87-year-old right-handed patient, who came to [facility] on the initially 14 of January with at least 5 days of constipation and had significant belch ing and bloating with abdominal distention. Prior to that, she had seen her sales service assistant and her diu retic medications were adjusted. Blood work showed a hyponatremia down to 123 and she was diagnosed with severe constipation, hyponatremia, and abdominal pain. She was treated with multiple enemas brenna ry 6 hours, but did not have initial significant improvement in bowel movements. She was given lactu lose and milk of magnesia and then MiraLAX. She did begin to see the physical therapist and subseque ntly with hydration, she eventually did have a bowel movement. During that time of hospitalization, she did become significantly weaker while in hospital and has become significantly debilitated. She was evaluated by Physical and Occupational Therapy and determined to be at a level of minimum up to m aximum assistance for many of her activities of daily living. In addition, when she was brought in w ith hyponatremia and no bowel movement, she was confused, disoriented, and was evaluated for possible stroke by head CT scan, which showed no ischemic or hemorrhagic change. She was initially referred for inpatient rehabilitation and was discharged home while the approval was pending. Her approval wa s initially denied, but then on appeal, it was approved and [facility] Her diagnosis in addition to as mentioned above is include the SIADH and atypical seizures. Past Medical History: Hypertension, obstructive apnea, seizures, White-Coat syndrome with hypertensi on, hyponatremia, SIADH, atrial fibrillation, congestive heart failure, urinary retention, urinary in continence, stool incontinence, anemia. Social History: No alcohol, tobacco, or IV drug use. Allergies: LATEX, CEPHALEXIN, AND PHENYTOIN. Medications: At home Tylenol 500 mg every 6 hours, aspirin 81 mg daily, biotin 5 mg daily, vitamin D with calcium 600-500 units 2 tablets twice daily, Keppra 250 mg twice daily, memantine 5 mg twice da loc, multivitamin daily, Zofran 4 mg daily, spironolactone 50 mg daily, venlafaxine 75 mg daily, Pres erVision AREDS 2 two capsules daily, Plavix 75 mg daily, metoprolol 25 mg daily, Protonix 40 mg daily , clonidine patch 0.3 mg every seventh day, and lactulose 30 mg daily as needed. Past Surgical History: Right knee surgery, cholecystectomy, breast reduction. Surgery in arm, foot, and wrist. Review of Systems: She has had significant constipation, confusion, and diffuse weakness. No rash. Mild shortness of b reath, especially with ambulation and easy fatigue. No active genitourinary issues. No other positi ves other than mentioned on a 10-point systems review. Physical Examination: Vital Signs: Blood pressure 163/85, pulse 65, respiratory rate 16, temperature 97.6, oxygen saturati on 98% on room air still, when ambulating down to 85% to 86%. HEENT: Ms. Wharton is normocephalic, atraumatic. Sclerae anicteric. Oropharynx is moist. Neck: Supple. Chest: Clear. Abdomen: Soft. Extremities: Show no significant clubbing, cyanosis, or edema. Neurologic: In terms of her cognitive evaluation, she is fully oriented and follows all commands. I n terms of motor examination, only mild diffuse weakness is noted. No focal deficits in the face, ar m, or leg. Sensory examination; no significant deficits. Coordination slow, but intact. Gait; she ambulates well with a rolling walker, no significant loss of balance. Laboratory Studies: White blood cell count 8.4, hemoglobin 9.7, platelets 267. INR 1.07. Sodium 13 1, potassium 4.7, chloride 103, carbon dioxide 25, creatinine 0.82 and BUN 20, glucose 96, calcium 8. 6. Urinalysis is negative except random urine sodium is low at 20. On the 21 of January, it was 22 an d on the at 20. Current Functional Status: Currently supervision for toileting and showering, upper body dressing, l ower body dressing at moderate assistance, footwear at moderate assistance, rolling left and right in bed moderate assistance. Doing a sit to lying and lying to sitting, contact guard to moderate arnaldo tance. Toilet transfers, contact guard assistance. Ambulating 150 feet with a rolling walker and co ntact guard assistance. Rehabilitation And Medical Assessment And Plan: Ms. Wharton is admitted to the rehabilitation unit [facility] rehabilitation impairment category 03 brain dysfunction, nontraumatic. Her rehabilitation impairme nt group code is 02.1 nontraumatic. Etiologic diagnoses; atypical seizures, active comorbidities, al tered mental status, dehydration, hypertension, diffuse weakness, congestive heart failure, hyponatre zach and SIADH. Plan: 1.She will have physical and occupational therapy for 3 hours a day, 5 of 7 days. 2.Continue aspirin 81 mg daily and Plavix 75 mg daily for stroke and DVT risk reduction. 3.Continue clonidine patch and metoprolol for blood pressure control. 4.Continue Flomax for urinary outflow tract obstruction. 5.Continue Namenda 5 mg daily for memory loss. 6.Continue Protonix for GE reflux. 7.Continue venlafaxine for depression. 8.Continue Tylenol for pain. 9.Continue Keppra 500 mg twice daily for atypical seizures. 10.Continue lactulose for constipation. Impact Of Comorbids: She has had significant constipation as the reason for her original admission t o the acute care facility and she will therefore require significant changes to her diet, hydration, stool softeners and laxatives to ensure ongoing bowel movements, and those have been addressed includ ing a cocktail of prune, pineapple, apple and warm butter with 2 ounces of each as needed to help mov e stools along. She may have enemas and suppositories as appropriate. Rehab Specific Plan: Again, she will have physical and occupational therapy 3 hours a day, 5 of 7 da ys to improve her ability to dress upper and lower body, to transfer from bed, to toilet, to shower, to chair, to ambulate 500 feet with modified independence, to go up and down 10 steps with modified i ndependence, and to continue cognitive functioning with independence. Ms. Wharton has a good understanding of the reason she is admitted to the inpatient rehabilitation unit . She has a potential good improvement and will require physical and occupational therapy to help he r improve. If needed, Services from the Respiratory Service, Cardiology Service and Renal Service wi ll be consulted as appropriate. Given her complex medical condition and further risk of complication s, rehabilitation cannot be safely or effectively provided at a lower level facility such as jail. Barriers To Discharge: Constipation appears to be a major barrier and hyponatremia; however, those w ill be aggressively addressed to mitigate the affects on her rehabilitation. Estimated Length Of Stay: About 10 days. Disposition: Home. Prognosis: Good. Rehabilitation Goals: 1.To improve her upper and lower body dressing to independence. 2.Transfers from bed, toilet, chair, and shower independently. 3.Ambulate 500 feet independently. 4.Up and down 10 steps independently. 5.Continue to perform cognitive functioning independently. I acknowledge I personally performed a full physical examination on Ms. Larissa Wharton, no later than 24 hours after admission to the inpatient rehabilitation facility and determined she is able to tolerate the above course of treatment at an intensive level for a reasonable period of time. A detailed ind ividualized plan of care for her will be completed by hospital day 4 based on the preadmission screen , history and physical, and therapy evaluations. GEORGINA Voice ID: [id number]
[2023-01-30] MEDS ORDERED: levETIRAcetam 500 MG TAB PO SCH (20:00)
[2023-01-30] MEDS ORDERED: TRIAMCINOLONE 0.1% CREAM 15GM TOP PRN (20:42)
[2023-01-30 20:47] LABS: Specific Gravity 1.008 (1.005-1.030); Urine Bacteria <20 /HPF (<20); Urine Bilirubin NEGATIVE (Negative); Urine Blood Negative (Negative); Urine Clarity Turbid (Clear); Urine Color Colorless (Yellow); Urine Glucose NEGATIVE (Negative); Urine Protein TRACE (Negative); Urine RBC <5 /HPF (None Seen); Urine Urobilinogen Normal (Normal); Urine pH 6.5 (5.0-7.0)
[2023-01-30] MEDS ORDERED: CLONIDINE 0.3 MG/PATCH TD SCH (22:00)
[2023-01-31] MEDS: METOPROLOL XL 25 MG TAB PO SCH (05:16)
[2023-01-31] MEDS: PANTOPRAZOLE 40MG TABLET PO SCH (05:16)
[2023-01-31 06:14] LABS: Absolute Lymphocytes (CBC) 1.5 K/uL (0.7-4.9); Hematocrit 29.5 % (36.0-45.0); Lymphocytes % 18.2 % (15.3-44.8); MCV 90.8 fL (80-100); MPV 8.7 fL (7.6-11.3); RBC Red Blood Cell Count 3.26 M/uL (3.86-4.86)
[2023-01-31 06:27] LABS: Albumin 2.7 g/dL (3.4-5.0); Magnesium 1.8 mg/dL (1.6-2.4); Potassium 4.2 mEq/L (3.5-5.1); Prealbumin 13.1 mg/dL (20-40)
[2023-01-31] MEDS ORDERED: ASPIRIN EC 81 MG TAB PO SCH (08:00)
[2023-01-31] MEDS ORDERED: VENLAFAXINE HCL XR 75 MG CAP PO SCH (08:00)
[2023-01-31] MEDS ORDERED: CLOPIDOGREL 75 MG TABLET PO SCH (08:00)
[2023-01-31] MEDS ORDERED: MEMANTINE HCL 10 MG TABLET PO SCH (08:00)
[2023-01-31] MEDS ORDERED: METOPROLOL XL 25 MG TAB PO SCH (08:00)
[2023-01-31] MEDS: VENLAFAXINE HCL XR 75 MG CAP PO SCH (08:35)
[2023-01-31] MEDS: FERROUS SULFATE 325 MG TAB PO SCH (08:35)
[2023-01-31] MEDS: MULTIVITAMIN TAB PO SCH (08:35)
[2023-01-31] MEDS: ASPIRIN 81 MG CHEWABLE TABLET PO SCH (08:35)
[2023-01-31] MEDS: FE SULF/FA/VIT B COMP & C TAB PO SCH (08:36)
[2023-01-31] MEDS: CRANBERRY FRUIT EXTRACT 200 MG CAP PO SCH ×2 (08:36→20:17)
[2023-01-31] MEDS: FAMOTIDINE 20 MG TAB PO SCH (08:36)
[2023-01-31] MEDS: MEMANTINE HCL 10 MG TABLET PO SCH ×2 (08:36→20:18)
[2023-01-31] MEDS: CLOPIDOGREL 75 MG TABLET PO SCH (08:37)
[2023-01-31] MEDS: POLYVINYL ALCOHOL 1.4% 15 ML OPTH SCH ×2 (08:37→20:20)
[2023-01-31] MEDS: levETIRAcetam 500 MG TAB PO SCH ×2 (08:37→20:17)
--- NOTE | 2023-01-31 14:16 | P.RH.PN ---
Estimated Length of Stay: 9 Expected Discharge Date: 02/07/23 Discharge Disposition Plan: Home Family Support: Yes Grading Machine Feeder Goal: Mobility, Transfers, Self Care Vital Signs: Last Vital Signs Temp 96.2 F L 01/31/23 07:24 Pulse 62 01/31/23 07:24 Resp 16 01/31/23 07:24 BP 168/88 H 01/31/23 07:24 Pulse Ox 96 01/31/23 07:24 Laboratory: Laboratory Last Values WBC 8.50 thou/uL (4.3-10.9) 01/31/23 05:20 RBC 3.26 M/uL (3.86-4.86) L 01/31/23 05:20 Hgb 9.8 g/dL (12.0-15.0) L 01/31/23 05:20 Hct 29.5 % (36.0-45.0) L 01/31/23 05:20 MCV 90.8 fL (80-100) 01/31/23 05:20 MCH 30.0 pg (27.0-35.0) 01/31/23 05:20 MCHC 33.1 g/dL (32.0-36.0) 01/31/23 05:20 RDW 14.7 % (12.1-15.2) 01/31/23 05:20 Plt Count 276 thou/uL (152-406) 01/31/23 05:20 MPV 8.7 fL (7.6-11.3) 01/31/23 05:20 Neutrophils % 67.9 % (41.7-73.7) 01/31/23 05:20 Lymphocytes % 18.2 % (15.3-44.8) 01/31/23 05:20 Monocytes % 10.8 % (3.3-12.3) 01/31/23 05:20 Eosinophils % 2.7 % (0-4.4) 01/31/23 05:20 Basophils % 0.4 % (0-1.3) 01/31/23 05:20 Absolute Neutrophils 5.7 K/uL (1.8-8.0) 01/31/23 05:20 Segmented Neutrophils 57 % (40-80) 01/28/23 05:40 Absolute Lymphocytes 1.5 K/uL (0.7-4.9) 01/31/23 05:20 Lymphocytes 28 % (15-42) 01/28/23 05:40 Monocytes 15 % (0-10) H 01/28/23 05:40 Absolute Monocytes 0.9 K/uL (0.1-1.3) 01/31/23 05:20 Absolute Eosinophils 0.2 K/uL (0-0.5) 01/31/23 05:20 Absolute Basophils 0.0 K/uL (0-0.5) 01/31/23 05:20 Platelet Estimate Adeq 01/28/23 05:40 Morphology Comment Not seen (NOT SEEN) 01/28/23 05:40 Sodium 129 mEq/L (136-145) L 01/31/23 05:20 Potassium 4.2 mEq/L (3.5-5.1) 01/31/23 05:20 Chloride 102 mEq/L (98-107) 01/31/23 05:20 Carbon Dioxide 23 mEq/L (21-32) 01/31/23 05:20 Anion Gap 8.2 mEq/L (5.0-15.0) 01/31/23 05:20 BUN 18 mg/dL (7-18) 01/31/23 05:20 Creatinine 0.69 mg/dL (0.55-1.02) 01/31/23 05:20 Est GFR (CKD-EPI) 83 ml/min (=/>90) L 01/31/23 05:20 Glucose 86 mg/dL (74-106) 01/31/23 05:20 Serum Osmolality Cancelled 01/27/23 17:58 Calcium 9.1 mg/dL (8.5-10.1) 01/31/23 05:20 Magnesium 1.8 mg/dL (1.6-2.4) 01/31/23 05:20 Albumin 2.7 g/dL (3.4-5.0) L 01/31/23 05:20 Prealbumin 13.1 mg/dL (20-40) L 01/31/23 05:20 Urine Color Colorless (Yellow) 01/30/23 19:50 Urine Clarity Turbid (Clear) H 01/30/23 19:50 Urine pH 6.5 (5.0-7.0) 01/30/23 19:50 Ur Specific [place] 1.008 (1.005-1.030) 01/30/23 19:50 Glucose (UA)(Auto) Negative (Negative) 01/30/23 19:50 Urine Ketones Negative (Negative) 01/30/23 19:50 Urine Blood Negative (Negative) 01/30/23 19:50 Urine Nitrite Negative (Negative) 01/30/23 19:50 Urine Bilirubin Negative (Negative) 01/30/23 19:50 Urine Urobilinogen Normal (Normal) 01/30/23 19:50 Ur Leukocyte Esterase 500 Sindy/uL (Negative) H 01/30/23 19:50 Urine RBC <5 /HPF (None Seen) 01/30/23 19:50 Urine WBC 20-50 /HPF (<5) H 01/30/23 19:50 Ur Squamous Epith Cells <5 /HPF (None Seen) 01/30/23 19:50 Urine Bacteria <20 /HPF (<20) 01/30/23 19:50 Urine Culture Reflexed Reflexed 01/30/23 19:50 Ur Random Sodium Cancelled 01/29/23 08:00 Urine Total Volume Cancelled 01/29/23 08:00 Ur Sodium 24 Hour Cancelled 01/29/23 08:00 Urine Total Protein Trace (Negative) H 01/30/23 19:50 Weight: 156 lb 4 oz Wound Present: No Physician Update: Low prealbumin to start ensure. Her Na is low at 131, will start NaCl 1 gram twice daily. Making slow progress with occupational therapy. She gets mildly short of breath. Contact guard for bed transfers. Walked 250' with rollator at [facility]. She is not able to control bladder function and is constipated. Summary: Patient's care plan and intermediate goals have been reviewed and revised as necessary. Please see the Rehabilitation Signature page for all necessary signatures.
[2023-01-31] MEDS: SODIUM CHLORIDE 1 GM TAB PO SCH (17:18)
--- NOTE | 2023-01-31 17:39 | RAD REPORT ---
EXAM DESCRIPTION: Cat Single View01/31/2023 4:54 pm CLINICAL HISTORY: Wheezing COMPARISON: December 2022 FINDINGS: Lungs are mildly to moderately hyperaerated The lungs appear clear of acute infiltrate. The heart is moderately enlarged. Pacemaker leads in place IMPRESSION: No acute abnormalities displayed
[2023-01-31] MEDS ORDERED: TAMSULOSIN 0.4 MG SR CAP PO SCH (18:00)
[2023-01-31] MEDS: TAMSULOSIN 0.4 MG SR CAP PO SCH (20:17)
[2023-01-31] MEDS: ENSURE ENLIVE 237 ML CAN PO SCH (20:18)
[2023-01-31] MEDS: ALBUTEROL 2.5 MG/3 ML NEB SOL NEB SCH (21:00)
[2023-02-01] MEDS: PANTOPRAZOLE 40MG TABLET PO SCH (05:23)
[2023-02-01] MEDS: METOPROLOL XL 25 MG TAB PO SCH (05:23)
[2023-02-01] MEDS: ALBUTEROL 2.5 MG/3 ML NEB SOL NEB SCH ×2 (07:59→20:30)
[2023-02-01] MEDS: ENSURE ENLIVE 237 ML CAN PO SCH ×4 (08:00→19:46)
[2023-02-01] MEDS: FERROUS SULFATE 325 MG TAB PO SCH (08:06)
[2023-02-01] MEDS: CRANBERRY FRUIT EXTRACT 200 MG CAP PO SCH ×2 (08:06→19:28)
[2023-02-01] MEDS: ASPIRIN 81 MG CHEWABLE TABLET PO SCH (08:06)
[2023-02-01] MEDS: FAMOTIDINE 20 MG TAB PO SCH (08:06)
[2023-02-01] MEDS: FE SULF/FA/VIT B COMP & C TAB PO SCH (08:07)
[2023-02-01] MEDS: CLOPIDOGREL 75 MG TABLET PO SCH (08:07)
[2023-02-01] MEDS: MULTIVITAMIN TAB PO SCH (08:07)
[2023-02-01] MEDS: VENLAFAXINE HCL XR 75 MG CAP PO SCH (08:07)
[2023-02-01] MEDS: levETIRAcetam 500 MG TAB PO SCH ×2 (08:08→19:29)
[2023-02-01] MEDS: SODIUM CHLORIDE 1 GM TAB PO SCH ×2 (08:08→17:19)
[2023-02-01] MEDS: MEMANTINE HCL 10 MG TABLET PO SCH ×2 (08:08→19:29)
[2023-02-01] MEDS: POLYVINYL ALCOHOL 1.4% 15 ML OPTH SCH ×2 (09:48→19:32)
[2023-02-01] MEDS: TAMSULOSIN 0.4 MG SR CAP PO SCH (19:30)
[2023-02-01] MEDS: cloNIDine HCL 0.1 MG TAB PO PRN (20:57)
[2023-02-02] MEDS: METOPROLOL XL 25 MG TAB PO SCH (05:35)
[2023-02-02 06:20] LABS: Absolute Lymphocytes (CBC) 1.7 K/uL (0.7-4.9); Hematocrit 28.2 % (36.0-45.0); MCV 91.3 fL (80-100); MPV 8.3 fL (7.6-11.3); RBC Red Blood Cell Count 3.09 M/uL (3.86-4.86)
[2023-02-02 06:34] LABS: Potassium 4.7 mEq/L (3.5-5.1)
[2023-02-02] MEDS: PANTOPRAZOLE 40MG TABLET PO SCH (06:37)
[2023-02-02] MEDS: ALBUTEROL 2.5 MG/3 ML NEB SOL NEB SCH (08:00)
[2023-02-02] MEDS: MULTIVITAMIN TAB PO SCH (08:00)
[2023-02-02] MEDS: ENSURE ENLIVE 237 ML CAN PO SCH ×2 (08:00→19:53)
[2023-02-02] MEDS: POLYVINYL ALCOHOL 1.4% 15 ML OPTH SCH ×2 (08:41→19:52)
[2023-02-02] MEDS: FE SULF/FA/VIT B COMP & C TAB PO SCH (08:42)
[2023-02-02] MEDS: VENLAFAXINE HCL XR 75 MG CAP PO SCH (08:42)
[2023-02-02] MEDS: ASPIRIN 81 MG CHEWABLE TABLET PO SCH (08:42)
[2023-02-02] MEDS: CRANBERRY FRUIT EXTRACT 200 MG CAP PO SCH ×2 (08:42→19:52)
[2023-02-02] MEDS: FERROUS SULFATE 325 MG TAB PO SCH (08:42)
[2023-02-02] MEDS: FAMOTIDINE 20 MG TAB PO SCH (08:42)
[2023-02-02] MEDS: SODIUM CHLORIDE 1 GM TAB PO SCH ×2 (08:43→16:47)
[2023-02-02] MEDS: CLOPIDOGREL 75 MG TABLET PO SCH (08:43)
[2023-02-02] MEDS: MEMANTINE HCL 10 MG TABLET PO SCH ×2 (08:43→19:53)
[2023-02-02] MEDS: levETIRAcetam 500 MG TAB PO SCH ×2 (08:43→19:53)
[2023-02-02] MEDS: TAMSULOSIN 0.4 MG SR CAP PO SCH (19:53)
[2023-02-02] MEDS ORDERED: NITROFURAN MACRO 100 MG CAP PO SCH (20:00)
[2023-02-02] MEDS ORDERED: AMOX/K CLAV 500 MG TAB PO SCH (20:00)
[2023-02-02] MEDS: cloNIDine HCL 0.1 MG TAB PO PRN (21:36)
[2023-02-02] MEDS: ALBUTEROL 2.5 MG/3 ML NEB SOL NEB PRN (22:10)
[2023-02-03] MEDS: PANTOPRAZOLE 40MG TABLET PO SCH (05:27)
[2023-02-03] MEDS: METOPROLOL XL 25 MG TAB PO SCH (05:27)
[2023-02-03] MEDS ORDERED: AMOX/K CLAV 500 MG TAB PO SCH ×2 (06:01→08:00)
[2023-02-03] MEDS: cloNIDine HCL 0.1 MG TAB PO PRN (07:10)
[2023-02-03] MEDS: POLYVINYL ALCOHOL 1.4% 15 ML OPTH SCH ×2 (07:11→19:40)
[2023-02-03] MEDS: CLOPIDOGREL 75 MG TABLET PO SCH (07:18)
[2023-02-03] MEDS: ASPIRIN 81 MG CHEWABLE TABLET PO SCH (07:18)
[2023-02-03] MEDS: FAMOTIDINE 20 MG TAB PO SCH (07:18)
[2023-02-03] MEDS: FERROUS SULFATE 325 MG TAB PO SCH (07:18)
[2023-02-03] MEDS: MULTIVITAMIN TAB PO SCH (07:18)
[2023-02-03] MEDS: FE SULF/FA/VIT B COMP & C TAB PO SCH (07:18)
[2023-02-03] MEDS: levETIRAcetam 500 MG TAB PO SCH ×2 (07:19→19:40)
[2023-02-03] MEDS: VENLAFAXINE HCL XR 75 MG CAP PO SCH (07:19)
[2023-02-03] MEDS: SODIUM CHLORIDE 1 GM TAB PO SCH ×2 (07:19→16:52)
[2023-02-03] MEDS: MEMANTINE HCL 10 MG TABLET PO SCH ×2 (07:19→19:40)
[2023-02-03] MEDS: CRANBERRY FRUIT EXTRACT 200 MG CAP PO SCH ×2 (07:19→19:40)
[2023-02-03] MEDS: ENSURE ENLIVE 237 ML CAN PO SCH ×2 (07:20→19:41)
[2023-02-03] MEDS: AMOX/K CLAV 875 MG TAB PO SCH (16:52)
[2023-02-03] MEDS: TAMSULOSIN 0.4 MG SR CAP PO SCH (19:40)
[2023-02-03] MEDS: clonazePAM 0.5 MG TAB PO PRN (19:40)
[2023-02-03] MEDS: ALBUTEROL 2.5 MG/3 ML NEB SOL NEB PRN (20:05)
--- NOTE | 2023-02-03 21:08 | PN ---
Date of Progress Note: 02/03/2023 Time Of Service: 1 p.m. Subjective: Ms. Wharton is resting in bed. She has no new complaints. She is happy with her progress , so far. Making improvements in terms of her transfers, mobility, upper and lower body dressing, mo bilization, and has no difficulty with her sleep and eating, and bowel movements. Review of Systems: No fevers, chills, nausea, or vomiting. No myalgias, arthralgias, rash, headache, or weight change. No psychiatric complaints. No gastrointestinal complaints and no genitourinary complaints. Physical Examination: Vital Signs: Blood pressure appeared to be elevated to 177/81, pulse of 70, respiratory rate 16, tem perature 97.6, oxygen saturation 97%. General: Ms. Wharton is resting comfortably in bed in between therapy sessions. HEENT: She is normocephalic, atraumatic. Sclerae anicteric. Oropharynx pink, moist. Neck: Supple. Chest: Clear. Heart: Regular. Extremities: Show no significant clubbing, cyanosis, or edema. Laboratory Studies: White blood cell count 8.5, hemoglobin 9.5, hematocrit 28.2, platelets 291. Sod ium 131, potassium 4.7, chloride 100, carbon dioxide 26, BUN 18, glucose 96, calcium 9.2, prealbumin 13.1. Urinalysis did show 500 esterases, 20 to 50 white blood cells, trace protein, and turbid nellie ty. Her urine cultures did grow over the weekend which was sensitive to nitrofurantoin an d Augmentin along with Rocephin, ceftazidime, cefepime, and meropenem. Resistant to ciprofloxacin an d levofloxacin. The patient was treated with Augmentin mg twice daily for 5 days as recom mended by the pharmacy service given her renal function. X-ray/imaging: Chest x-ray done on the did show no acute abnormalities. Heart is moderately en larged. Lungs appear clear of acute infiltrates. Medications: Tylenol 500 mg every 6 hours as needed, albuterol nebulizer 2.5 mg twice daily as neede d, Augmentin twice daily for 5 days starting on 02/03, Artificial Tears 1 drop twice daily , aspirin 81 mg daily, Klonopin 0.5 mg at bedtime, clonidine patch 0.3 mg every seventh day and cloni dine 0.1 mg every 4 hours as needed, Plavix 75 mg daily, Pepcid 20 mg daily, ferrous sulfate 325 mg d aily, lactulose 20 g daily as needed, Keppra 250 mg twice daily, Namenda 5 mg twice daily, metoprolol 25 mg daily, Hemocyte Plus 1 tablet daily, multivitamin 1 tablet daily, Ensure Enlive 237 mL twice d aily, Zofran 4 mg every 4 hours as needed, Protonix 40 mg daily, sodium chloride tablets 1 g twice da loc, Flomax 0.4 mg at bedtime, Effexor 75 mg daily, triamcinolone acetonide cream applied topically t o affected skin every 12 hours. Current Functional Status: Ms. Wharton is able to perform gait training covering 500 feet twice, anoth er 300 feet twice, another 600 feet twice with standby assistance using a Rollator. She ascended 15 steps, another 20 steps with standby assistance using bilateral handrails. She was able to independe ntly ambulate from the room to toilet twice with a Rollator, locking the breaks, and doing it appropr iately. She donned and doffed lower body clothes with focusing and energy conservation and supervisi on. She did have above 91% oxygen while doing activities of daily living. She had speech education and she verbalized understanding. Progress Towards Rehabilitation Goals: Ms. Wharton has made excellent progress towards her goals of be coming independent with upper and lower body dressing, transferring, toileting, showering, ambulating out 600 feet with modified independence, up and down 25 steps with modified independence and perform ing cognitive functioning with supervision to modified independence. Assessment: Ms. Wharton is an 87-year-old patient in the rehabilitation unit with debility, atypical s eizures, altered mental status, dehydration, hypertension, congestive heart failure, hypernatremia an d SIADH. She is recovering very well. Plan: 1.Continue with physical, occupational, and speech therapy for 3 and half hours, 5 of 7 days. 2.Continue aspirin and Plavix for stroke and DVT risk reduction. 3.Continue clonidine patch and p.r.n. clonidine along with metoprolol for hypertension. 4.Continue with Keppra 250 mg twice daily. 5.Continue with Tylenol for pain. Continue with venlafaxine for depression. 6.Protonix for GE reflux. 7.Namenda 5 mg daily for dementia. Comorbids That Are Continuing To Impact The Rehabilitation Process: Ms. Wharton is doing very well wit h no significant factors except mild cognitive impairment, impairing her rehabilitation. She is ambu lating very well, performing activities of daily living very well and has no significant limitations in terms of her comorbid conditions. LB/MODL Voice ID: [id number] Report ID: [id number]
[2023-02-04] MEDS: METOPROLOL XL 25 MG TAB PO SCH (05:23)
[2023-02-04] MEDS: PANTOPRAZOLE 40MG TABLET PO SCH (05:24)
[2023-02-04] MEDS: levETIRAcetam 500 MG TAB PO SCH ×2 (07:26→19:07)
[2023-02-04] MEDS: POLYVINYL ALCOHOL 1.4% 15 ML OPTH SCH ×2 (07:26→19:07)
[2023-02-04] MEDS: CRANBERRY FRUIT EXTRACT 200 MG CAP PO SCH ×2 (07:27→19:07)
[2023-02-04] MEDS: VENLAFAXINE HCL XR 75 MG CAP PO SCH (07:27)
[2023-02-04] MEDS: SODIUM CHLORIDE 1 GM TAB PO SCH ×2 (07:27→17:16)
[2023-02-04] MEDS: CLOPIDOGREL 75 MG TABLET PO SCH (07:27)
[2023-02-04] MEDS: FE SULF/FA/VIT B COMP & C TAB PO SCH (07:28)
[2023-02-04] MEDS: FAMOTIDINE 20 MG TAB PO SCH (07:28)
[2023-02-04] MEDS: AMOX/K CLAV 875 MG TAB PO SCH ×2 (07:28→17:16)
[2023-02-04] MEDS: ASPIRIN 81 MG CHEWABLE TABLET PO SCH (07:28)
[2023-02-04] MEDS: MULTIVITAMIN TAB PO SCH (07:28)
[2023-02-04] MEDS: FERROUS SULFATE 325 MG TAB PO SCH (07:29)
[2023-02-04] MEDS: ENSURE ENLIVE 237 ML CAN PO SCH ×2 (08:00→19:07)
[2023-02-04] MEDS: MEMANTINE HCL 10 MG TABLET PO SCH ×2 (08:07→19:07)
--- NOTE | 2023-02-04 16:19 | PN ---
Date of Progress Note: 02/04/2023 Time Of Service: 1:15 p.m. Subjective: Ms. Wharton is resting in bed. She is happy and ready for her discharge in the morning. She has no new complaints. Has been eating and sleeping well. Has good bowel movements. Review of Systems: No fevers, chills, nausea, vomiting. No significant myalgias, arthralgias, rash. No psychiatric com plaints. No gastrointestinal or genitourinary complaints. Physical Examination: Vital Signs: Blood pressure 168/76, pulse 61, respiratory rate 16, temperature 96.8, ox saturation 9 5%. General: Ms. Wharton is resting in bed between therapy sessions. Lungs: She is clear to auscultation. Heart: Regular. Extremities: Showed no significant edema, clubbing, or cyanosis. Laboratory Studies: No new laboratory studies since . Hemoglobin was stable at 9.5. The sodium was 131 on the . Prealbumin 13.1 on the . X-ray/imaging: No new x-rays and imaging. Medications: Medications have been reviewed and remained unchanged. Current Functional Status: Currently, she is independent for ambulating from the room to shower to [facility] with a Rollator. She completed shower and shower transfer independently with a Rollator with p hysical therapy completed 500 feet twice, 350 feet twice, another 250 feet twice with independence us ing a Rollator. She ascended and descended 20 steps independently using bilateral handrails. Progress Towards Rehabilitation Goals: Ms. Wharton has met her rehabilitation goals of independence wi th upper and lower body dressing, transferring, toileting, ambulating 500 feet with independence. Up and down 20 steps with independence. She is doing very well cognitively. Assessment: Ms. Wharton is an 87-year-old patient in the rehabilitation unit with debility, who has ma de excellent progress and is now recovered to independence level. She has comorbid atypical seizures , dehydration, hypertension, congestive heart failure, hypernatremia, SIADH. Her comorbidities are w ell and stably managed. Plan: 1.She will continue with occupational and physical therapy and speech for the remainder of today and be ready for discharge in the morning. 2.Medications will be continued, which include aspirin, Plavix for stroke and DVT risk reduction, Ke ppra twice daily for seizure risk reduction, Protonix for GE reflux. Continue Namenda for dementia a nd all other medications as listed. Comorbids That Are Continuing To Impact The Rehabilitation: At this point, no comorbidities negative ly impact her rehabilitation and she is doing well and she is ready for discharge in the morning. LETICIA/NORA Voice ID: [id number] Report ID: [id number]
[2023-02-04] MEDS: TAMSULOSIN 0.4 MG SR CAP PO SCH (19:07)
[2023-02-04] MEDS: clonazePAM 0.5 MG TAB PO PRN (19:07)
--- NOTE | 2023-02-04 21:25 | P.PN ---
Subjective Date of Service: 02/04/23 Chief Complaint: DOING WELL Subjective: Improving DHIRAJ IS DOING WELL, NO MORE SEIZURES CONT PT. Physical Examination - Vital Signs Temperature: 96.8 F Blood Pressure: 144/67 Pulse: 62 Respirations: 18 Pulse Ox (%): 98 - Physical Exam General: Oriented x3 HEENT: Atraumatic, PERRLA, EOMI Neck: Supple, JVD not distended Respiratory: Clear to auscultation bilaterally, Normal air movement Cardiovascular: Regular rate/rhythm, Normal S1 S2 Gastrointestinal: Normal bowel sounds, No tenderness Musculoskeletal: No tenderness Integumentary: No rashes Neurological: Normal speech, Normal tone, Normal affect Lymphatics: No axilla or inguinal lymphadenopathy - Studies Medications List Reviewed: Yes Assessment And Plan - Current Problems (Diagnosis) (1) Atypical seizure Current Visit: No Status: Acute Plan: CONTINUE HIGHER DOSE OF KEPPRA. NO MORE SEIZURES. (2) Hyponatremia Current Visit: No Status: Chronic Plan: STABLE AT 130 OR SO NOW.
[2023-02-05 05:18] LABS: Renal Epithelial <5 /HPF (None Seen); Specific Gravity 1.014 (1.005-1.030); Urine Bacteria None Seen /HPF (<20); Urine Bilirubin NEGATIVE (Negative); Urine Blood Negative (Negative); Urine Clarity Turbid (Clear); Urine Color Light-Yellow (Yellow); Urine Glucose NEGATIVE (Negative); Urine Protein 1+ (Negative); Urine RBC <5 /HPF (None Seen); Urine Urobilinogen Normal (Normal); Urine WBC Clump Rare /HPF (None Seen)
[2023-02-05] MEDS: PANTOPRAZOLE 40MG TABLET PO SCH (05:18)
[2023-02-05] MEDS: METOPROLOL XL 25 MG TAB PO SCH (05:19)
[2023-02-05 06:27] VITALS: BP 167/82; TEMP 96.9
[2023-02-05] MEDS: ASPIRIN 81 MG CHEWABLE TABLET PO SCH (07:48)
[2023-02-05] MEDS: CRANBERRY FRUIT EXTRACT 200 MG CAP PO SCH (07:48)
[2023-02-05] MEDS: FAMOTIDINE 20 MG TAB PO SCH (07:48)
[2023-02-05] MEDS: FERROUS SULFATE 325 MG TAB PO SCH (07:49)
[2023-02-05] MEDS: FE SULF/FA/VIT B COMP & C TAB PO SCH (07:49)
[2023-02-05] MEDS: CLOPIDOGREL 75 MG TABLET PO SCH (07:49)
[2023-02-05] MEDS: VENLAFAXINE HCL XR 75 MG CAP PO SCH (07:49)
[2023-02-05] MEDS: MULTIVITAMIN TAB PO SCH (07:50)
[2023-02-05] MEDS: MEMANTINE HCL 10 MG TABLET PO SCH (07:50)
[2023-02-05] MEDS: levETIRAcetam 500 MG TAB PO SCH (07:50)
[2023-02-05] MEDS: POLYVINYL ALCOHOL 1.4% 15 ML OPTH SCH (07:51)
[2023-02-05] MEDS: SODIUM CHLORIDE 1 GM TAB PO SCH (07:51)
[2023-02-05] MEDS: ENSURE ENLIVE 237 ML CAN PO SCH (07:51)
[2023-02-05] MEDS ORDERED: CLONIDINE 0.3 MG/PATCH TD SCH (08:00)
[2023-02-05] MEDS: ALBUTEROL 2.5 MG/3 ML NEB SOL NEB PRN (08:35)
== END 2023-02-05 11:00 | disposition home health service (06) | DRG 948 ==
LOC: 5TH 01-30 11:00
PROVIDERS: ADMIT Psychiatry & Neurology Neurology with Special Qualifications in Child Neurology; ATTEND Psychiatry & Neurology Neurology with Special Qualifications in Child Neurology
DX: R53.81 Other malaise (principal); E22.2 Syndrome of inappropriate secretion of antidiuretic hormone; I11.0 Hypertensive heart disease with heart failure; I50.9 Heart failure, unspecified; G47.33 Obstructive sleep apnea (adult) (pediatric); I48.91 Unspecified atrial fibrillation; G40.909 Epilepsy, unspecified, not intractable, without status epilepticus; E86.0 Dehydration; N13.9 Obstructive and reflux uropathy, unspecified; R41.3 Other amnesia; K21.9 Gastro-esophageal reflux disease without esophagitis; F32.A Depression, unspecified
CPT/HCPCS: 36415; 71045; 80048; 81001; 82040; 83735; 84134; 85025; 87077; 87086; 87088; 87186; 92523; 94010; 94640; 97110; 97116; 97161; 97165; 97530; J7613

== ENCOUNTER 2024-01-30 12:10 | Inpatient (IN) | payer OTHER ==
[2024-01-30] MEDS ORDERED: NA CHLORIDE 0.9% 250 ML ONE ×2 (13:02→16:09)
[2024-01-30 13:10] LABS: Absolute Eosinophils 0.1 K/uL (0-0.5); Absolute Lymphocytes (CBC) 0.7 K/uL (0.7-4.9); Absolute Monocytes 0.4 K/uL (0.1-1.3); Absolute Neutrophil 4.4 K/uL (1.8-8.0); Basophils % 0.4 % (0-1.3); Eosinophils % 1.6 % (0-4.4); Hematocrit 22.4 % (36.0-45.0); Hemoglobin 7.3 g/dL (12.0-15.0); Lymphocytes % 12.9 % (15.3-44.8); MCH 31.5 pg (27.0-35.0); MCHC 32.5 g/dL (32.0-36.0); MCV 97.1 fL (80-100); Monocytes % 7.1 % (3.3-12.3); Nucleated RBC Absolute Count 0.1 (0-0); Nucleated Red Blood Cells % 1.1 % (0-0); Platelets 213 thou/uL (152-406); RBC Red Blood Cell Count 2.31 M/uL (3.86-4.86); Red Cell Distribution Width 18.2 % (12.1-15.2)
[2024-01-30 13:12] LABS: PT Prothrombin Time 11.5 SECONDS (9.5-12.5); Protime INR 1.05
[2024-01-30 13:27] LABS: Anion Gap 14.4 mEq/L (5.0-15.0); Potassium 5.4 mEq/L (3.5-5.1); Troponin High Sensitivity 25.1 pg/mL (<58.9)
--- NOTE | 2024-01-30 13:56 | RAD REPORT ---
EXAM DESCRIPTION: RAD - Chest Single View - 01/30/2024 1:32 pm CLINICAL HISTORY: Cough;Dyspnea Chest pain. COMPARISON: Chest Pa And Lat (2 Views) dated 05/14/2023; Chest Single View dated 01/31/2023; Chest Pa And Lat (2 Views) dated 01/14/2023; Chest Single View dated 09/13/2022 FINDINGS: Portable technique limits examination quality. The lungs are emphysematous but grossly clear. The heart is mildly enlarged in size. No displaced fra ctures.Dual lead pacer device present. IMPRESSION: No acute intrathoracic process suspected.
[2024-01-30 14:09] LABS: Differential Total Cells Count 100; Eosinophils 1 % (0-3); Lymphocytes 19 % (15-42); Monocytes 2 % (0-10); Nucleated Red Blood Cells 4 /100WBC; Segmented Neutrophils 78 % (40-80)
[2024-01-30 14:10] LABS: Platelet Estimate ADEQ
[2024-01-30 14:11] LABS: Blood Morphology Comment NOTED (NOT SEEN); Hypochromasia 2+
--- NOTE | 2024-01-30 14:42 | EDPHYS ---
Physician Documentation [facility] Name: Larissa Wharton Age: 88 yrs Sex: Female : 1935 Arrival Date: 01/30/2024 Time: 12:10 Bed 16 Private MD: ED Physician James Hearn HPI: 01/29 12:49 This 88 yrs old Female presents to ER via EMS with complaints of ec2 lightheadedness. 12:49 Patient arrives today for evaluation of lightheadedness and dizziness. Patient was at formerly [facility] primary care doctor's office, became lightheaded and almost passed out. Patient denies chest pain. Does report some shortness of breath and lower extremity edema. Does have history of CHF, recently decreased on her Lasix and spironolactone.. Historical: - Allergies: 12:21 Cephalexin; as6 12:21 Dilantin; as6 12:21 Latex; as6 12:21 Phenytoin; as6 - PMHx: 12:21 a fib; Dementia; Hypertensive disorder; Seizure; Congestive heart failure; as6 - PSHx: 12:21 knee; pacemaker; as6 - Immunization history:: Adult Immunizations up to date. - Infectious Disease History:: Denies. - Social history:: Smoking status: Patient denies any tobacco usage or history of. ROS: 12:49 Constitutional: as per hpi ec2 Exam: 12:49 Constitutional: GEN: NAD Head: atraumatic Eyes: EOMI Ears: External ears are ec2 normal. CV: regular rate, 2+ bilateral lower extremity edema. LUNGS: no respiratory distress, Rales in the bilateral lung parr. ABD: non-distended SKIN: no evidence of rashes MSK: no evidence of trauma NEURO: moves all extremities equally Vital Signs: 12:21 BP 111 / 74; Pulse 62; Resp 20; Temp 97.8; Pulse Ox 98% ; Weight 68.58 kg; Height 4 ft. as6 11 in. ; Pain 0/10; 14:00 BP 110 / 63; Pulse 59; Resp 15; Pulse Ox 96% ; bp 16:00 BP 109 / 61; Pulse 59; Resp 16; Pulse Ox 98% ; bp 17:00 BP 109 / 64; Pulse 60; Resp 10; Temp 97.7; Pulse Ox 97% ; bp 18:00 BP 143 / 80; Pulse 60; Resp 17; Temp 97.9; Pulse Ox 99% ; bp 12:21 Body Mass Index 30.54 (68.58 kg, 149.86 cm) as6 12:21 Pain Scale: Adult as6 MDM: 12:25 Patient medically screened. ec2 12:49 Data reviewed: vital signs. ED course: Patient arrives today for evaluation of ec2 lightheadedness. Examination remarkable for volume overloaded individual was otherwise in no acute respiratory distress with pulmonary findings as above. Will obtain lab work, EKG and chest x-ray. Differential diagnosis includes CHF exacerbation, ACS, electrolyte disturbances. Patient also with a history of hyponatremia. History gathered from daughter due to patient's dementia.. 13:23 ED course: CBC shows anemia with a hemoglobin of 7.3. Given the patient's ec2 lightheadedness and near syncopal episode. I will transfuse for symptomatic anemia. . 13:31 ED course: Metabolic profile shows hyponatremia with a sodium of 126, hyperkalemia with ec2 a potassium of 5.4, renal dysfunction with a creatinine of 2.66 and GFR 17. BNP elevated at 4000. Troponin within normal ranges. Chest x-ray independently reviewed and interpreted by me, shows cardiomegaly, vascular congestion noted. No pleural effusion identified. . 13:31 ED course: External records show patient with history of anemia, typical hemoglobin ec2 range between 7-10.. 13:56 ED course: EKG independently reviewed and interpreted by me, shows no significant ec2 abnormality, AV paced rhythm noted.. 13:58 ED course: Chest x-ray shows no acute intrathoracic process.. ec2 14:42 ED course: MDM: Differential diagnosis as documented above in ED course; All lab tests ec2 ordered and reviewed as documented above; Independent interpretation of tests: EKG as above; External records reviewed: Previous ED visit and associated lab work; History gathered from independent historian: Yes; daughter; Discuss inpatient hospitalization: Yes; I discussed the case with: Hospitalist . 14:47 ED course: Additionally in regards to the patient's anemia, patient with history of ec2 anemia with similar blood counts, daughter also reports that she has had polyps in the past and her primary care doctor Dr. Frost, recommended against colonoscopy given the potential adverse effects of undergoing the procedure and the patient and family were in agreement and they would not like to pursue that option even if available.. 01/29 13:24 Order name: Type And Screen ec2 01/29 12:37 Order name: Basic Metabolic Panel; Complete Time: 13:30 ec2 01/29 12:37 Order name: CBC with Diff; Complete Time: 14:40 ec2 01/29 12:37 Order name: NT PRO-BNP; Complete Time: 13:30 ec2 01/29 12:37 Order name: PT-INR; Complete Time: 13:23 ec2 01/29 12:37 Order name: Troponin HS; Complete Time: 13:30 ec2 01/29 14:04 Order name: Manual Differential; Complete Time: 14:40 EDMS 01/29 15:25 Order name: ABO/RH no charge EDMS 01/29 12:37 Order name: XRAY Chest (1 view); Complete Time: 13:58 ec2 01/29 12:37 Order name: Cardiac monitoring; Complete Time: 12:51 ec2 01/29 12:37 Order name: EKG - Nurse/Tech; Complete Time: 13:50 ec2 01/29 12:37 Order name: IV Saline Lock; Complete Time: 12:59 ec2 01/29 12:37 Order name: Labs collected and sent; Complete Time: 12:59 ec2 01/29 12:37 Order name: O2 Per Protocol; Complete Time: 12:51 ec2 01/29 12:37 Order name: O2 Sat Monitoring; Complete Time: 12:51 ec2 01/29 13:24 Order name: Consent for Blood Transfusion; Complete Time: 14:10 ec2 Administered Medications: 13:28 Drug: NS 0.9% IV 250 ml IV at bolus once Route: IV; Rate: bolus; Site: left hand; bp 18:10 Follow up: IV Status: Completed infusion; IV Intake: 250ml bp 16:03 Not Given (Physician Discretion): mg IVP once; give over 2 minutes bp 16:04 Not Given (Physician Discretion): ns 0.9% 500 ml IV at bolus once bp 16:15 Drug: NS 0.9% IV 1000 ml IV at 50 ml/hr continuous Route: IV; Rate: 50 ml/hr; Site: bp left forearm; 18:10 Follow up: IV Status: Infusion continued upon admission bp Disposition Summary: 01/30/24 14:41 Hospitalization Ordered Notes: Hospitalization Status: Inpatient Admission ec2 Location: Telemetry/MedSurg (Inpatient) ec2 Condition: Stable ec2 Problem: an ongoing problem ec2 Symptoms: have improved ec2 Bed/Room Type: Standard ec2 Provider: Chalo Casper(01/30/24 14:44) ec2 Room Assignment: 213(01/30/24 16:41) eb Diagnosis - Weakness ec2 - Hypo-osmolality and hyponatremia ec2 - Hyperkalemia ec2 - Anemia, unspecified ec2 Forms: - Medication Reconciliation Form ec2 - SBAR form ec2 - Leadership Thank You Letter ec2 Critical care time excluding procedures: 14:41 Critical care time: Bedside Care: 30 minutes, Consultation: 5 minutes. Total time: 35 ec2 minutes Signatures: Dispatcher [employer] EDSon Leon, RN RN Sia Mena Ashby, RN RN as6 James Hearn MD MD ec2 Corrections: (The following items were deleted from the chart) 13:24 13:24 TYPE AND SCREEN+BB.LAB.BRZ ordered. EDMS EDMS 13:58 13:24 PACKED RBC LEUKORED+BB.LAB.BRZ ordered. EDMS EDMS 13:58 13:26 ABO/RH typing ordered. EDMS EDMS 13:58 13:26 Antibody Screen ordered. EDMS EDMS 14:04 13:15 CBC Smear Scan ordered. EDMS EDMS 14:44 14:41 Jennifer Kenny ec2 ec2 16:41 14:41 ec2 eb
--- NOTE | 2024-01-30 14:42 | ER ---
Nurse's Notes [facility] Name: Larissa Wharton Age: 88 yrs Sex: Female : 1935 Arrival Date: 01/30/2024 Time: 12:10 Bed 16 Private MD: Diagnosis: Weakness;Hypo-osmolality and hyponatremia;Hyperkalemia;Anemia, unspecified Presentation: 01/29 12:21 Chief complaint: EMS states: called out for shortness of breath, weakness that started as6 last night. Coronavirus screen: At this time, the client does not indicate any symptoms associated with coronavirus-19. Ebola Screen: No symptoms or risks identified at this time. Initial Sepsis Screen: Does the patient meet any 2 criteria? No. Patient's initial sepsis screen is negative. Does the patient have a suspected source of infection? No. Patient's initial sepsis screen is negative. Risk Assessment: Do you want to hurt yourself or someone else? Patient reports no desire to harm self or others. Onset of symptoms was January 29, 2024. 12:21 Acuity: SHELDON 2 as6 12:21 Method Of Arrival: EMS: [facility] as6 Triage Assessment: 12:30 General: Appears in no apparent distress. obese, Behavior is cooperative, drowsy. Pain: bp Denies pain. EENT: No deficits noted. Neuro: Reports a syncopal episode. Cardiovascular: Rhythm is sinus bradycardia. Respiratory: No deficits noted. GI: No signs and/or symptoms were reported involving the gastrointestinal system. : No signs and/or symptoms were reported regarding the genitourinary system. Derm: No deficits noted. Musculoskeletal: No deficits noted. Historical: - Allergies: 12:21 Cephalexin; as6 12:21 Dilantin; as6 12:21 Latex; as6 12:21 Phenytoin; as6 - PMHx: 12:21 a fib; Dementia; Hypertensive disorder; Seizure; Congestive heart failure; as6 - PSHx: 12:21 knee; pacemaker; as6 - Immunization history:: Adult Immunizations up to date. - Infectious Disease History:: Denies. - Social history:: Smoking status: Patient denies any tobacco usage or history of. Screenin:00 [facility] ED Fall Risk Assessment (Adult) History of falling in the last 3 months, bp including since admission No falls in past 3 months (0 pts). Abuse screen: Denies threats or abuse. Denies injuries from another. Nutritional screening: No deficits noted. Tuberculosis screening: No symptoms or risk factors identified. Assessment: 12:21 General: SEE TRIAGE NOTE. bp 14:00 Reassessment: Patient appears in no apparent distress at this time. Patient is alert, bp oriented x 3, equal unlabored respirations, skin warm/dry/pink. 16:00 Reassessment: CONSENT FOR PRBC SIGNED BY FAMILY. PT ON NIBP, SPO2, EKG. bp 16:30 Reassessment: 1ST UNIT PRBC INITIATED. bp 17:15 Reassessment: REPORT FAXED FOR RM 213. ADMIT DELAYED FOR PRBC INFUSION. bp 18:36 Reassessment: PRBC COMPLETED. PT PEDRO WITH PCT AND FAMILY. bp Vital Signs: 12:21 BP 111 / 74; Pulse 62; Resp 20; Temp 97.8; Pulse Ox 98% ; Weight 68.58 kg; Height 4 ft. as6 11 in. ; Pain 0/10; 14:00 BP 110 / 63; Pulse 59; Resp 15; Pulse Ox 96% ; bp 16:00 BP 109 / 61; Pulse 59; Resp 16; Pulse Ox 98% ; bp 17:00 BP 109 / 64; Pulse 60; Resp 10; Temp 97.7; Pulse Ox 97% ; bp 18:00 BP 143 / 80; Pulse 60; Resp 17; Temp 97.9; Pulse Ox 99% ; bp 12:21 Body Mass Index 30.54 (68.58 kg, 149.86 cm) as6 12:21 Pain Scale: Adult as6 ED Course: 12:21 Patient arrived in ED. as6 12:21 Son Beckford, RN is Primary Nurse. bp 12:21 Arm band placed on. as6 12:23 Triage completed. as6 12:25 James Hearn MD is Attending Physician. ec2 13:34 XRAY Chest (1 view) In Process Unspecified. EDMS 13:50 EKG done, by ED staff, reviewed by James Hearn MD. [id number] 14:00 Patient has correct armband on for positive identification. bp 14:00 Maintain EMS IV. Dressing intact. Good blood return noted. Site clean \T\ dry. Gauge \T\ bp site: 22 LEFT HAND. 14:41 Jennifer Kenny MD is Hospitalizing Provider. ec2 14:44 Chalo Casper is Hospitalizing Provider. ec2 18:10 No provider procedures requiring assistance completed. Patient admitted, IV remains in bp place. 18:36 Provided Education on: Blood Transfusion. bp Administered Medications: 13:28 Drug: NS 0.9% IV 250 ml IV at bolus once Route: IV; Rate: bolus; Site: left hand; bp 18:10 Follow up: IV Status: Completed infusion; IV Intake: 250ml bp 16:03 Not Given (Physician Discretion): [id number] mg IVP once; give over 2 minutes bp 16:04 Not Given (Physician Discretion): ns 0.9% 500 ml IV at bolus once bp 16:15 Drug: NS 0.9% IV 1000 ml IV at 50 ml/hr continuous Route: IV; Rate: 50 ml/hr; Site: bp left forearm; 18:10 Follow up: IV Status: Infusion continued upon admission bp Medication: 14:00 VIS not applicable for this client. bp Intake: 18:10 IV: 250ml; Total: 250ml. bp Outcome: 14:41 Decision to Hospitalize by Provider. ec2 18:09 Admitted to Med/surg accompanied by tech, via wheelchair, room 213, bp 18:09 Condition: stable 18:09 Instructed on the need for admit, 18:55 Patient left the ED. bp Signatures: Dispatcher [employer] Son Kim, TITO RN bp Juan Toledo RN RN as6 James Hearn MD MD ec2 Jerald Santos [email or web address]
--- NOTE | 2024-01-30 15:10 | P.HP ---
Certification for Inpatient Patient admitted to: Inpatient With expected LOS: <2 Midnights <Florence Bai - Last Filed: 01/30/24 16:46> Patient History Date of Service: 01/30/24 Reason for admission: Acute renal failure History of Present Illness: 88-year-old female with a past medical history a fib; Dementia; Hypertensive disorder; Seizure; Congestive heart failure; presents to the emergency room with lightheaded and dizziness. She is being referred by her primary care physician. She reports Patient lives alone in an assisted living facility and has home health. Per case management note IP, patient is a poor historian with past medical history of dementia, ER medical record showed patient in acute renal failure, GFR 17, creatinine 2.66, elevated potassium at 5.4, BNP elevated at 4000, she denies chest pain, troponin is normal, cardiology will be consulted for acute heart failure, nephrology consulted for acute renal failure, EKG EKG independently reviewed and interpreted by me, shows no significant abnormality, AV paced rhythm noted. IV normal saline at 250 was given times once in the emergency room plan to admit for acute renal failure, acute heart failure, anemia, cardiology, nephrology to consult. - Past Medical/Surgical History Diabetic: No -: HTN -: Bladder urgency -: rt knee sx, rt breast mass removal, cholecystectomy, -: HLD, Hiatal hernia, GERD, -: Seizures -: Atrial fib -: CHF -: Right knee SX -: Latia -: Breast Reduction -: foot sx -: wrist sx - Social History Alcohol use: No CD- Drugs: No Caffeine use: No <Florence Bai - Last Filed: 01/30/24 16:46> Date of Service: 01/30/24 <Jennifer Kenny - Last Filed: 02/02/24 06:18> Allergies latex [Latex] Allergy (Intermediate, Verified 01/30/23 12:32) Hives/Rash cephalexin [From Keflex] Adverse Reaction (Intermediate, Verified 01/30/23 12:32) AGITATION phenytoin [From Dilantin] Adverse Reaction (Intermediate, Verified 01/30/23 12:32) AGITATION Home Medications: Aspirin [Aspirin EC] 81 mg PO DAILY 05/04/22 Biotin 5 mg PO DAILY 05/04/22 Calcium Carb, Citrate/Vit D3 [Citracal-D3 ER 600 mg-500 Unit] 2 tab PO BID 05/04/22 Memantine HCl 5 mg PO BID 05/04/22 Multivitamin [Daily Nicole] 1 tab PO DAILY 05/04/22 Ondansetron [Zofran (Odt)*] 4 mg PO Q4H PRN 05/04/22 Propylene Glycol/Peg 400/Pf [Systane 0.3-0.4% Eye Drop] 1 gtt OPTH BID 05/04/22 Triamcinolone Acetonide 1 appl TOP Q12H PRN 05/04/22 Venlafaxine HCl [Venlafaxine HCl ER] 1 cap PO DAILY 05/04/22 Vit C/E/Zn/Coppr/Lutein/Zeaxan [Preservision Areds 2 Softgel] 2 cap PO DAILY 05/04/22 Clopidogrel Bisulfate [Plavix] 75 mg PO DAILY 01/14/23 Pantoprazole [Protonix Tab*] 40 mg PO DAILY 01/14/23 Famotidine [Pepcid*] 1 mg PO DAILY 01/28/23 Metoprolol Succinate [Toprol Xl*] 25 mg PO DAILY 01/28/23 Tamsulosin [Flomax*] 0.4 mg PO DAILY 6PM 01/28/23 Clonidine Patch [Catapres-Tts 3*] 0.3 mg TD Q7D@2200 01/30/23 levETIRAcetam [Keppra] 500 mg PO BID #60 02/05/23 Review of Systems per HPI <Florence Bai - Last Filed: 01/30/24 16:46> Physical Examination - Physical Exam General: Alert, Oriented x2, Mild distress HEENT: Atraumatic, Normocephalic Neck: 2+ carotid pulse no bruit, JVD not distended Respiratory: Diminished, Crackles/rales Cardiovascular: Normal pulses, Other (Paced on the monitor) Capillary refill: <2 Seconds Gastrointestinal: Soft and benign Musculoskeletal: Swelling, Other (Generalized weakness) Integumentary: No erythema Neurological: Normal strength at 5/5 x4 extr, Sensation intact, Other (Flat affect) - Studies Laboratory Data (last 24 hrs) 01/30/24 01/30/24 01/30/24 13:00 13:00 13:00 WBC 5.70 Hgb 7.3 L Hct 22.4 L Plt Count 213 PT 11.5 INR 1.05 Sodium 126 L Potassium 5.4 H BUN 47 H Creatinine 2.66 H Glucose 86 <RichardsonFlorence - Last Filed: 01/30/24 16:46> Assessment and Plan - Plan assessment plan Acute renal failure likely secondary from dehydration Acute on chronic heart failure likely secondary from renal insufficiency Nephrology consulted, cardiology consulted, Per cardiology Dr. Colby start normal saline at 50 x 1 L, nephrology to eval acute renal failure, GFR 17, creatinine 2.66, elevated potassium at 5.4, BNP elevated at 4000, she denies chest pain, troponin is normal, cardiology will be consulted for acute heart failure, nephrology consulted for acute renal failure, EKG EKG independently reviewed and interpreted by me, shows no significant abnormality, AV paced rhythm noted. IV normal saline at 250 was given times once in the emergency room plan to admit for acute renal failure, acute heart failure, anemia, cardiology, nephrology to consult. Chest x-ray IMPRESSION: No acute intrathoracic process suspected. a fib Dementia Hypertensive disorder Seizure Resume appropriate home meds Full code DVT SCD Cardiac diet Disposition patient lives in assisted living with home health Discharge Plan: Other (Assisted living with home health) - Advance Directives Does patient have a Living Will: No Does patient have a Durable POA for Healthcare: No Critical Care: No Time Spent Managing Pts Care (In Minutes): 55 <JrkenyonFlorence - Last Filed: 01/30/24 16:46> Date of Service: 01/30/24 Patient was seen and examined. Events of the last 24 hours have been noted. Spoke with with AUGUSTUS regarding patient's clinical picture after evaluating and examining the patient independently. I performed a substantial part of the MDM during this patient's care today. I personally made or approved the documented management plan and acknowledge its risk of complications. I agree with the findings and documentation provided in the AUGUSTUS's notes. Patient with congestive heart failure. Patient lives at [facility]. Patient was diuresed. Patient clinically is doing better. Echocardiogram pending. Plan to transfer back to [facility] upon discharge as long as patient's respiratory status has stabilized. <Jennifer Kenny - Last Filed: 02/02/24 06:18>
[2024-01-30] MEDS ORDERED: NA CHLORIDE 0.9% 500 ML ONE (16:10)
--- NOTE | 2024-01-30 16:53 | CON ---
Date of Consultation: 01/30/2024 Reason For Consultation: Shortness of breath and heart failure. History Of Present Illness: This is an 88-year-old female, history of congestive heart failure, nasima nary artery disease, aortic valve stenosis, status post replacement, and status post multiple PCIs, a pparently presented to the emergency room due to lightheadedness and dizziness. She apparently was i n her primary care physician office and she almost passed out and so she was sent to the emergency ro om. She has history of congestive heart failure. She was on Lasix and Aldactone and their both dose s were decreased recently. Denies having any chest pain or active shortness of breath at the present time. Past Medical History: As outlined above in the HPI. Medications: Refer to reconciliation sheet for detailed list. Allergies: CEPHALEXIN AND PHENYTOIN. Family History: No premature coronary artery disease or cancer. Social History: She does not smoke or drink. Does not use any drugs. Review of Systems: All systems were reviewed and they were negative except as mentioned in the HPI. Physical Examination: Vital Signs: Reviewed. Head and Neck: Pupils are equal, reactive to light. Intact eye movements. No JVD. No cervical lym phadenopathy. Neck is supple. Thyroid is not enlarged. Lungs: She has crackles on both bases. No accessory muscle use or muscle retraction. Heart: Irregular. No extra sounds. Abdomen: Soft, nontender. Bowel sounds positive. No organomegaly. No masses or hernia. No rigidi ty or rebound. Extremities: Edema 1+ bilaterally. No clubbing or cyanosis. Intact pulses. Skin: No rash. No nodule. Neurologic: Alert, awake, oriented x3. No acute focal deficits appreciated. Investigations: Sodium 126, potassium 5.4, BUN is 47, creatinine 2.66, and hemoglobin is 7.3. Tropo bart is 25.1. Blood pressure on arrival was 111/74. Assessment And Recommendations: 1.Congestive heart failure. At this point, it is not clear if she is fluid overloaded. She is not giving me much history, but she is resting comfortably and chest x-ray did not show any acute abnorma lities. In fact, she has an acute renal failure, probably due to significant dehydration. Hold off on any diuretics right now and we will monitor her gradually and we will dose it as needed. 2.Acute renal failure, likely due to dehydration. Start her on low-dose IV fluids and normal saline at 50 cc/hour and monitor BUN, creatinine, and electrolytes. 3.Hyponatremia, likely due to dehydration. Start NS as outlined above carefully, monitoring for flu id overload, and consult Nephrology. 4.Hyperkalemia. No EKG changes. Hydrate and reassess labs later today and if potassium does not im prove, then a Kayexalate will be recommended. 5.Coronary artery disease. No chest pain. Trend cardiac enzymes and monitor. 6.Elevated NT-proBNP with diastolic heart failure that is well known, but at this point, hold off on diuretics and plan on rehydration as outlined above. SR/MODL Voice ID: [id number] Report ID: [id number]
--- NOTE | 2024-01-30 17:41 | P.CNS ---
Date of Consult: 01/30/24 Reason for Consult: YULI, hyponatremia, hyperkalemia Chief Complaint: Acute renal failure History of Present Illness: Pt is a elderly female with a past medical history of reported CAD, prior PCI, unspecified CHF, hx of s/p AVR per Cardiology, a h of dual lead PPM who it appears presented to the emergency room with lightheaded and dizziness and some AMS per family. She was referred by her primary care physician, she sees Dr. Frost. Apparently per pt's daughter renal function tests earlier in the mo showed YULI and her diuretic therapy was lowered. She has since gained several lbs and some increased peripheral edema. She is on multiple BP lowering agents including Clonidine patch. SBP in the ER was > 100 mmHg but not elevated, labs were notable for renal impairment with creatinine at 2.66, elevated potassium at 5.4. Allergies latex [Latex] Allergy (Intermediate, Verified 01/30/23 12:32) Hives/Rash cephalexin [From Keflex] Adverse Reaction (Intermediate, Verified 01/30/23 12:32) AGITATION phenytoin [From Dilantin] Adverse Reaction (Intermediate, Verified 01/30/23 12:32) AGITATION Home Medications: Aspirin [Aspirin EC] 81 mg PO DAILY 05/04/22 Biotin 5 mg PO DAILY 05/04/22 Calcium Carb, Citrate/Vit D3 [Citracal-D3 ER 600 mg-500 Unit] 2 tab PO BID 05/04/22 Memantine HCl 5 mg PO BID 05/04/22 Multivitamin [Daily Nicole] 1 tab PO DAILY 05/04/22 Ondansetron [Zofran (Odt)*] 4 mg PO Q4H PRN 05/04/22 Propylene Glycol/Peg 400/Pf [Systane 0.3-0.4% Eye Drop] 1 gtt OPTH BID 05/04/22 Triamcinolone Acetonide 1 appl TOP Q12H PRN 05/04/22 Venlafaxine HCl [Venlafaxine HCl ER] 1 cap PO DAILY 05/04/22 Vit C/E/Zn/Coppr/Lutein/Zeaxan [Preservision Areds 2 Softgel] 2 cap PO DAILY 05/04/22 Clopidogrel Bisulfate [Plavix] 75 mg PO DAILY 01/14/23 Pantoprazole [Protonix Tab*] 40 mg PO DAILY 01/14/23 Famotidine [Pepcid*] 1 mg PO DAILY 01/28/23 Metoprolol Succinate [Toprol Xl*] 25 mg PO DAILY 01/28/23 Tamsulosin [Flomax*] 0.4 mg PO DAILY 6PM 01/28/23 Clonidine Patch [Catapres-Tts 3*] 0.3 mg TD Q7D@2200 01/30/23 levETIRAcetam [Keppra] 500 mg PO BID #60 02/05/23 - Past Medical/Surgical History Diabetic: No -: HTN -: Bladder urgency -: rt knee sx, rt breast mass removal, cholecystectomy, -: HLD, Hiatal hernia, GERD, -: Seizures -: Atrial fib -: CHF -: YULI episode in 02/[address] Morfin -: Right knee SX -: Latia -: Breast Reduction -: foot sx -: wrist sx - Social History Smoking Status: Unknown if ever smoked Alcohol use: No CD- Drugs: No Caffeine use: No Review of Systems is unable to be obtained (Pt is not able to provide a comprehensive ROS at this time) Physical Examination General: In no apparent distress, Other (Elderly, pale) HEENT: Atraumatic, Normocephalic, Other (LFNC) Neck: Supple Respiratory: Other (b/l air entry, diminished at bases) Cardiovascular: Regular rate/rhythm, Other (Paced, upper chest PPM) Gastrointestinal: Other (Mod distention, obese, NT) Musculoskeletal: Other (2+ edema of the LE, shins tender) Integumentary: No rashes Neurological: Normal speech, Normal tone, Other (No tremors or myoclonus) Laboratory Data (last 24 hrs) 01/30/24 01/30/24 01/30/24 13:00 13:00 13:00 WBC 5.70 Hgb 7.3 L Hct 22.4 L Plt Count 213 PT 11.5 INR 1.05 Sodium 126 L Potassium 5.4 H BUN 47 H Creatinine 2.66 H Glucose 86 Conclusions/Impression: A/P) 1. Sub-acute Stage II YULI that may be multifactorial and could certainly reflect functional injury in the setting of severe anemia, low perfusion state and/or normotensive renal ischemia in the setting of relative BP lowering, other. 2. 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 Mild hyperkalemia in the setting of renal impairment -hold Spironolactone, cont Lasix, f/u repeat levels, use cation exchangers if needed 4. Non gap metab acidosis -will place on sodium bicarb 650 mg TID temp 4. Unspecified CHF, ischemic cardiomyopathy per reports. BNP > 1000 and higher than level in early 23 based on labs in this EMR. Weight and edema up per daughter with diuretic dose lowering earlier in the mo. Challenging fluid status with above mentioned but would not give additional vol beyond the blood transfusion, will cont gentle diuresis with lasix. Monitor clinically, Cardiology reccs noted 5. Chronic HTN -monitor BP closely, remove Clonidine patch, watch for any rebound HTN, cont afterload reduction with agents such as Hydralazine with holding parameters
[2024-01-30] MEDS ORDERED: ALPRAZOLAM 0.25 MG TABLET PO PRN (19:40)
[2024-01-30] MEDS ORDERED: ONDANSETRON 4 MG/2 ML VIAL IV PRN (19:40)
[2024-01-30] MEDS: NA CHLORIDE 0.9% 1,000 ML ONE (19:50)
[2024-01-30 20:42] VITALS: BMI 31.9
[2024-01-30 20:44] LABS: Hematocrit 27.4 % (36.0-45.0); Hemoglobin 9.3 g/dL (12.0-15.0)
[2024-01-30] MEDS: HYDRALAZINE HCL 25 MG TABLET PO SCH (21:00)
[2024-01-30] MEDS: FUROSEMIDE 20 MG/ 2ML VIAL IV SCH (21:00)
[2024-01-30] MEDS: SODIUM BICARB 325 MG TAB PO SCH (21:41)
[2024-01-30] MEDS: SODIUM BICARB 50 MEQ/50ML VIAL ONE (22:25)
[2024-01-31 02:58] LABS: Absolute Eosinophils 0.1 K/uL (0-0.5); Absolute Lymphocytes (CBC) 1.4 K/uL (0.7-4.9); Absolute Monocytes 0.5 K/uL (0.1-1.3); Absolute Neutrophil 3.2 K/uL (1.8-8.0); Basophils % 0.4 % (0-1.3); Eosinophils % 2.3 % (0-4.4); Hematocrit 24.8 % (36.0-45.0); Hemoglobin 8.6 g/dL (12.0-15.0); Lymphocytes % 26.2 % (15.3-44.8); MCH 32.2 pg (27.0-35.0); MCHC 34.5 g/dL (32.0-36.0); MCV 93.2 fL (80-100); MPV 8.2 fL (7.6-11.3); Neutrophils % 61.1 % (41.7-73.7); Nucleated Red Blood Cells % 0.7 % (0-0); Platelets 183 thou/uL (152-406); RBC Red Blood Cell Count 2.67 M/uL (3.86-4.86); Red Cell Distribution Width 19.1 % (12.1-15.2)
[2024-01-31 03:20] LABS: ALT/SGPT 26 U/L (13-56); AST/SGOT 34 U/L (15-37); Albumin 2.3 g/dL (3.4-5.0); Albumin/Globulin Ratio 0.7 (1.1-1.8); Alkaline Phosphatase 92 U/L (45-117); Anion Gap 11.8 mEq/L (5.0-15.0); BUN Blood Urea Nitrogen 44 mg/dL (7-18); Bicarbonate 21 mEq/L (21-32); Bilirubin Total 0.5 mg/dL (0.2-1.0); Globulin 3.5 g/dL (2.3-3.5); Glomerular Filtration Rate 22 ml/min (=/>90); Glucose Level 76 mg/dL (74-106); Magnesium 2.4 mg/dL (1.6-2.4); NT PRO-BNP 4654 pg/mL (<450); Potassium 4.8 mEq/L (3.5-5.1); Protein, Total 5.8 g/dL (6.4-8.2); Sodium Level 133 mEq/L (136-145)
[2024-01-31 03:40] LABS: Bilirubin Direct < 0.2 mg/dL (0-0.2); Bilirubin Indirect, Calculated 0.3 mg/dL (0.2-0.8)
[2024-01-31 05:17] LABS: Renal Epithelial <5 /HPF (None Seen); Specific Gravity 1.006 (1.005-1.030); Sqamous Epithelial <5 /HPF (None Seen); Urine Bacteria <20 /HPF (<20); Urine Bilirubin NEGATIVE (Negative); Urine Blood Negative (Negative); Urine Clarity Turbid (Clear); Urine Color Colorless (Yellow); Urine Culture Reflex Order NOT NEEDED; Urine Glucose NEGATIVE (Negative); Urine Ketones NEGATIVE (Negative); Urine Micro Reflex YN NO BILL MICROSCOPIC; Urine Mucus Slight /HPF (None Seen); Urine Nitrite 1+ (Negative); Urine Protein NEGATIVE (Negative); Urine RBC None Seen /HPF (None Seen); Urine Urobilinogen Normal (Normal); Urine WBC <5 /HPF (<5); Urine WBC Clump Rare /HPF (None Seen); Urine pH 5.5 (5.0-7.0)
[2024-01-31] MEDS: NA CHLORIDE 0.9% 1,000 ML IV SCH (06:00)
--- NOTE | 2024-01-31 07:55 | P.PN ---
Date of Service: 01/31/24 Subjective 88-year-old female admitted with dehydration, renal failure, elevated BNP moderate generalized weakness, 97% on room More oriented today, family at Review of Systems per HPI Physical Examination Vital signs Reviewed - Physical Exam General: Alert, Oriented x3 Neck: 2+ carotid pulse no bruit, JVD not distended Respiratory: Diminished, lower extremity edema Cardiovascular: Normal pulses, Other (Paced on the monitor) Capillary refill: <2 Seconds Gastrointestinal: Nontender Musculoskeletal: Swelling, Other (Generalized weakness) Integumentary: No erythema Neurological: Alert and oriented x 2 Assessment and Plan Acute renal failure likely secondary from dehydration Acute on chronic heart failure likely secondary from renal insufficiency Nephrology consulted, cardiology consulted, sodium bicarb ordered by nephrology Per cardiology Dr. Colby start normal saline at 50 x 1 L, nephrology to eval acute renal failure, GFR 17, creatinine 2.66, elevated potassium at 5.4, BNP elevated at 4000, she denies chest pain, troponin is normal, cardiology will be consulted for acute heart failure, nephrology consulted for acute renal failure, EKG EKG independently reviewed and interpreted by me, shows no significant abnormality, AV paced rhythm noted. IV normal saline at 250 was given times once in the emergency room plan to admit for acute renal failure, acute heart f ailure, anemia, cardiology, nephrology to consult. Chest x-ray IMPRESSION: No acute intrathoracic process suspected. Anemia microcytic Trend H&H Transfuse in the emergency room Hemoglobin 7.3, repeat 8 point a fib Dementia Hypertensive disorder Seizure Resume appropriate home meds Full code DVT SCD Cardiac diet Disposition patient lives in assisted living with home health Discharge Plan: Other (Assisted living with home health) <Florence Bai - Last Filed: 02/01/24 13:53> Patient was seen and examined. Events of the last 24 hours have been noted. Spoke with with AUGUSTUS regarding patient's clinical picture after evaluating and examining the patient independently. I performed a substantial part of the MDM during this patient's care today. I personally made or approved the documented management plan and acknowledge its risk of complications. I agree with the findings and documentation provided in the AUGUSTUS's notes. Patient continues to improve. Patient's clinical symptoms are stable. Patie nt's doing much better at this time. <Jennifer Kenny - Last Filed: 02/02/24 06:26>
[2024-01-31] MEDS: PNEUMOCOCCAL VACCINE 0.5 ML IMVAC ONE (11:00)
--- NOTE | 2024-01-31 14:53 | P.PN ---
Nephrology note (S) Pt seen lying in bed, no resp distress, no acute complaints, eating some, appears to be on IVF ordered by the IM team. Bear hugger/warmer in place, pt reports feeling cold, transfused yesterday in the ER (O) vitals reviewed in the EMR PE Elderly, NAD, non toxic, on LFNC, non labored breathing, non tachypnec. Non tachy, upper chest PPM. Soft, mild distention, NT, dependent edema 2+ at least, tight, shins mildly tender. Pt awake, converses briefly, some confusion Labs reviewed in the EMR A/P) 1. Sub-acute Stage II YULI that was likely multifactorial and could certainly reflect functional injury in the setting of severe anemia, low perfusion state and/or normotensive renal ischemia in the setting of relative BP lowering, other. Cr level has peaked and slowly downward trended. Pt does not require IVF, will d/c again. 2. 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 Appropriate rate of correction overall 3. Mild hyperkalemia in the setting of renal impairment -resolved, cont to hold Spironolactone for now, cont Lasix 4. Non gap metab acidosis -bicarb deficit improved 4. Unspecified CHF, ischemic cardiomyopathy per reports. BNP > 1000 and higher than level in early 23 based on labs in this EMR. Weight and edema up per daughter with diuretic dose lowering earlier in the mo. Challenging fluid status with above mentioned but would not give additional vol beyond the blood transfusion yesterday, will cont gentle diuresis with lasix. Monitor clinically, Cardiology reccs noted 5. Chronic HTN -monitor BP closely, BP here has been non elevated despite yesterday removing Clonidine patch, no rebound HTN, was likely being over treated as OP. Ca cont afterload reduction with lower dose Hydralazine with holding parameters
[2024-02-01 04:01] LABS: Absolute Basophils 0.1 K/uL (0-0.5); Absolute Eosinophils 0.1 K/uL (0-0.5); Absolute Lymphocytes (CBC) 1.4 K/uL (0.7-4.9); Absolute Monocytes 0.9 K/uL (0.1-1.3); Absolute Neutrophil 5.8 K/uL (1.8-8.0); Basophils % 0.6 % (0-1.3); Eosinophils % 0.8 % (0-4.4); Hematocrit 31.2 % (36.0-45.0); Hemoglobin 10.3 g/dL (12.0-15.0); Lymphocytes % 16.6 % (15.3-44.8); MCH 31.2 pg (27.0-35.0); MCHC 33.1 g/dL (32.0-36.0); MCV 94.5 fL (80-100); MPV 8.7 fL (7.6-11.3); Monocytes % 11.3 % (3.3-12.3); Neutrophils % 70.7 % (41.7-73.7); Nucleated Red Blood Cells % 0.3 % (0-0); Platelets 207 thou/uL (152-406); Red Cell Distribution Width 20.1 % (12.1-15.2)
[2024-02-01 04:09] LABS: Anion Gap 9.9 mEq/L (5.0-15.0); Magnesium 2.4 mg/dL (1.6-2.4); Potassium 4.9 mEq/L (3.5-5.1)
--- NOTE | 2024-02-01 13:01 | P.PN ---
Nephrology note (S) BP no longer low, elevated this AM, pt has no acute complaints, denies dyspnea, orthopnea. (O) vitals reviewed in the EMR PE Elderly, NAD, non toxic, on LFNC, non labored breathing, non tachypnec. Non tachy, upper chest PPM. Soft, mild distention, NT, dependent edema 2+ at least, tight, shins mildly tender. Pt awake, converses briefly, some confusion Labs reviewed in the EMR A/P) 1. Sub-acute Stage II YULI that was likely multifactorial and could certainly reflect functional injury in the setting of severe anemia, low perfusion state and/or normotensive renal ischemia in the setting of relative BP lowering, other. Cr level has peaked and slowly downward trending. Pt does not require IVF, did d/c again yesterday. 2. 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 Appropriate rate of correction overall 3. Mild hyperkalemia in the setting of renal impairment -resolved, cont to hold Spironolactone for now but may restart at lower dose as renal function further recovers, cont Lasix 4. Non gap metab acidosis -bicarb deficit improved 4. Unspecified CHF, ischemic cardiomyopathy per reports. BNP > 1000 and higher than level in early 23 based on labs in this EMR. Weight and edema up per daughter with diuretic dose lowering earlier in the mo. Will cont gentle diuresis with lasix. Monitor clinically, Cardiology reccs noted 5. Chronic HTN -monitor BP closely, BP here initially had not been elevated despite removing Clonidine patch, no rebound HTN, was likely being over treated as OP, however BP now higher. Ca cont afterload reduction with Hydralazine, will raise dose. Will restart beta erica and switch metoprolol to coreg
[2024-02-01] MEDS: carvediloL 6.25 MG TAB PO SCH (13:54)
--- NOTE | 2024-02-01 13:55 | P.PN ---
Date of Service: 02/01/24 Subjective More oriented today, family at bedside Review of Systems per HPI Physical Examination Vital signs Reviewed - Physical Exam General: Alert, Oriented Neck: 2+ carotid pulse no bruit, JVD not distended Respiratory: Diminished, lower extremity edema Cardiovascular: Normal pulses, Other (Paced on the monitor) Capillary refill: <2 Seconds Gastrointestinal: Nontender Musculoskeletal: Swelling, Other (Generalized weakness) Integumentary: No erythema Neurological: Alert and oriented x 2 Assessment and Plan Acute renal failure likely secondary from dehydration improving Acute on chronic heart failure likely secondary from renal insufficiency Nephrology consulted, cardiology consulted, sodium bicarb ordered by nephrology Per cardiology Dr. Colby start normal saline at 50 x 1 L, nephrology to eval acute renal failure, GFR 17, creatinine 2.66, elevated potassium at 5.4, BNP elevated at 4000, she denies chest pain, troponin is normal, cardiology will be consulted for acute heart failure, nephrology consulted for acute renal failure, EKG EKG independently reviewed and interpreted by me, shows no significant abnormality, AV paced rhythm noted. IV normal saline at 250 was given times once in the emergency room plan to admit for acute renal failure, acute heart failure, anemia, cardiology, nephrology to consult. Chest x-ray IMPRESSION: No acute intrathoracic process suspected. Anemia microcytic Trend H&H Transfuse in the emergency room Hemoglobin 7.3, repeat 8 point a fib Dementia Hypertensive disorder Seizure Resume appropriate home meds Full code DVT SCD Cardiac diet Disposition patient lives in assisted living with home health Discharge Plan: Other (Assisted living with home health) <Florence Bai - Last Filed: 02/01/24 13:59> Patient was seen and examined. Events of the last 24 hours have been noted. Spoke with with AUGUSTUS regarding patient's clinical picture after evaluating and examining the patient independently. I performed a substantial part of the MDM during this patient's care today. I personally made or approved the documented management plan and acknowledge its risk of complications. I agree with the findings and documentation provided in the AUGUSTUS's notes. Patient continues to improve. Patient's clinical symptoms are stable. Renal function improved. Patient's respiratory status has improved. Patient's doing much better at this time. Continue with cardiac meds; holding conidine patch; may need to resume low dose clonidine. Hgb is stable. <Jennifer Kenny - Last Filed: 02/02/24 06:30>
--- NOTE | 2024-02-01 14:02 | P.PN ---
Date of Service: 02/01/24 Subjective No complaints of shortness of breath, 99% on room air Review of Systems per HPI Physical Examination Vital signs Reviewed - Physical Exam General: Alert, Oriented x3 Respiratory: Equal unlabored Cardiovascular: Normal pulses, Other (Paced on the monitor) lower ext edema Capillary refill: <2 Seconds Gastrointestinal: Nontender Musculoskeletal:generalized weakness Neurological: Alert and oriented x 2 Assessment and Plan Acute renal failure likely secondary from dehydration Acute on chronic heart failure likely secondary from renal insufficiency Nephrology consulted, cardiology consulted, sodium bicarb ordered by nephrology Per cardiology Dr. Colby start normal saline at 50 x 1 L, nephrology to eval acute renal failure, GFR 17, creatinine 2.66, elevated potassium at 5.4, BNP elevated at 4000, she denies chest pain, troponin is normal, cardiology will be consulted for acute heart failure, nephrology consulted for acute renal failure, EKG EKG independently reviewed and interpreted by me, shows no significant abnormality, AV paced rhythm noted. IV normal saline at 250 was given times once in the emergency room plan to admit for acute renal failure, acute heart failure, anemia, cardiology, nephrology to consult. Chest x-ray IMPRESSION: No acute intrathoracic process suspected. Anemia microcytic Trend H&H Transfuse in the emergency room Hemoglobin 7.3, repeat 8 point a fib Dementia Hypertensive disorder Seizure Resume appropriate home meds Full code DVT SCD Cardiac diet Disposition patient lives in assisted living with home health Discharge Plan: Other (Assisted living with home health) <Florence Bai - Last Filed: 02/01/24 14:02> Duplicate <Jennifer Kenny - Last Filed: 02/02/24 11:36>
--- NOTE | 2024-02-01 15:46 | PN ---
Date of Progress Note: 02/01/2024 Subjective: Seen by bedside. She is looking much better. No chest pain. Has mild shortness of kale ath and lower extremity edema. No nausea, vomiting, diarrhea. All other systems reviewed, they are negative. Physical Examination: Vital Signs: Reviewed. Head and Neck: Pupils are equal, reactive to light. Intact eye movements. No JVD. No cervical lym phadenopathy. Neck is supple. Thyroid is not enlarged. Lungs: Decreased breathing sounds. No accessory muscle use or muscle retraction Heart: Irregular. No extra sounds. Abdomen: Soft, nontender. Bowel sounds positive. No organomegaly. No masses or hernia. No rigidi ty or rebound. Extremities: No clubbing or cyanosis. 2+ edema bilaterally. Neuro: Alert, awake, oriented x3. No acute focal deficits appreciated. Investigations: BUN 36, creatinine 1.9, sodium is 133, potassium is 4.9, hemoglobin is 10.3. Assessment And Recommendations: 1.Acute renal failure due to dehydration. Responded well to gentle hydration and now she is on gent le Lasix. Continue and monitor very closely. 2.Hyponatremia due to dehydration. This has improved significantly with IV fluids and Nephrology is monitoring. Continue to follow up. 3.Hyperkalemia. This has resolved. 4.Congestive heart failure and she is in third spacing. Blood pressure is up. I agree with gentle Lasix right now at this moment and to adjust the dose to her response. 5.Hypertension. Blood pressure is elevated and should improve with further diuresis. 6.Anemia of chronic disease, apparently is improving and continue to monitor. SR/MODL Voice ID: [id number] Report ID: [id number]
[2024-02-01] MEDS: HYDRALAZINE HCL 25 MG TABLET PO SCH (19:59)
[2024-02-02 03:56] LABS: Absolute Basophils 0.1 K/uL (0-0.5); Absolute Eosinophils 0.1 K/uL (0-0.5); Absolute Lymphocytes (CBC) 1.3 K/uL (0.7-4.9); Absolute Neutrophil 5.7 K/uL (1.8-8.0); Basophils % 0.9 % (0-1.3); Eosinophils % 1.4 % (0-4.4); Hematocrit 32.3 % (36.0-45.0); Hemoglobin 10.6 g/dL (12.0-15.0); Lymphocytes % 15.5 % (15.3-44.8); MCH 31.1 pg (27.0-35.0); MCHC 32.8 g/dL (32.0-36.0); MCV 94.8 fL (80-100); MPV 8.7 fL (7.6-11.3); Monocytes % 12.8 % (3.3-12.3); Neutrophils % 69.4 % (41.7-73.7); Nucleated Red Blood Cells % 0.2 % (0-0); Platelets 181 thou/uL (152-406); RBC Red Blood Cell Count 3.41 M/uL (3.86-4.86); Red Cell Distribution Width 19.6 % (12.1-15.2)
[2024-02-02 04:26] LABS: Anion Gap 11.8 mEq/L (5.0-15.0); Magnesium 2.3 mg/dL (1.6-2.4); Potassium 4.8 mEq/L (3.5-5.1)
[2024-02-02] MEDS ORDERED: ONDANSETRON 4 MG (ODT) TAB PO PRN (06:22)
[2024-02-02] MEDS: BIOTIN 5 MG PO SCH (08:44)
[2024-02-02] MEDS: levETIRAcetam 500 MG TAB PO SCH (08:45)
[2024-02-02] MEDS: VENLAFAXINE HCL XR 75 MG CAP PO SCH (08:45)
[2024-02-02] MEDS: ASPIRIN EC 81 MG TAB PO SCH (08:46)
[2024-02-02] MEDS: MULTIVITAMIN TAB PO SCH (08:46)
[2024-02-02] MEDS: PANTOPRAZOLE 40MG TABLET PO SCH (08:46)
[2024-02-02] MEDS: CLOPIDOGREL 75 MG TABLET PO SCH (08:46)
[2024-02-02] MEDS: FUROSEMIDE 20 MG/ 2ML VIAL IV ONE (08:46)
[2024-02-02] MEDS: MEMANTINE HCL 10 MG TABLET PO SCH (08:46)
[2024-02-02] MEDS: VIT D3 PO SCH (08:47)
[2024-02-02] MEDS: carvediloL 12.5 MG TAB PO SCH (08:47)
[2024-02-02] MEDS: ALBUMIN HUMAN 25% 100 ML IV ONE (08:47)
[2024-02-02] MEDS: CALCIUM CARB CITRATE PO SCH (08:47)
[2024-02-02] MEDS: [UNRECOGNIZED DRUG - OTHER] PO SCH (08:47)
[2024-02-02] MEDS: PROPYLENE GLYCOL OPTH SCH (08:48)
[2024-02-02] MEDS: HOME MED 1 EA UNK (Vit C/E/Zn/Coppr/Lutein/Zeaxan [Preservision Areds 2 Softgel] Capsule) PO SCH (08:48)
[2024-02-02] MEDS: POLYETHYLENE GLYCOL 400 OPTH SCH (08:48)
[2024-02-02] MEDS: HOME MED 1 EA UNK (Famotidine [Pepcid*] 20 MG Tab) PO SCH (09:00)
[2024-02-02] MEDS ORDERED: METOPROLOL XL 25 MG TAB PO SCH (09:00)
--- NOTE | 2024-02-02 10:15 | P.PN ---
Subjective Date of Service: 02/02/24 Chief Complaint: Acute renal failure Subjective: Improving <Mary Ojeda - Last Filed: 02/02/24 10:15> Date of Service: 02/02/24 <Que Ying - Last Filed: 02/02/24 11:58> Review of Systems 10-point ROS is otherwise unremarkable <Mary Ojeda - Last Filed: 02/02/24 10:15> Physical Examination - Vital Signs Temperature: 97.6 F Blood Pressure: 188/100 Pulse: 73 Respirations: 18 Pulse Ox (%): 95 - Physical Exam General: Alert, In no apparent distress, Oriented x3 HEENT: Atraumatic, Normocephalic Neck: Supple Respiratory: Normal air movement Cardiovascular: Regular rate/rhythm, Abnormal S3, Edema Capillary refill: <2 Seconds Gastrointestinal: Soft and benign Musculoskeletal: No clubbing Integumentary: Other (multiple areas of ecchymosis to upper extremities) Neurological: Normal speech, Normal tone Lymphatics: No axilla or inguinal lymphadenopathy External genitalia: Deferred Rectal: Deferred <Mary Ojeda - Last Filed: 02/02/24 10:15> Assessment And Plan - Plan Assessment and Plan Acute renal failure likely secondary from dehydration Acute on chronic heart failure likely secondary from renal insufficiency acute renal failure, GFR 17, creatinine 2.66, elevated potassium at 5.4, BNP elevated at 4000 cardiology following for acute heart failure, AV paced rhythm noted. nephrology following for acute renal failure, Improved 02/02/24 Chest x-ray IMPRESSION: No acute intrathoracic process suspected. Anemia microcytic Trend H&H Transfuse in the emergency room Hemoglobin 7.3, repeat 8 point a fib Dementia Hypertensive disorder Seizure Resume appropriate home meds Full code DVT SCD Cardiac diet Disposition patient lives in assisted living with home health Discharge Plan: Detention Plan to discharge in: 24 Hours <Mary Ojeda - Last Filed: 02/02/24 10:15> - Plan Pt seen and examined. I agree with the note by the [employer]. Pt has elevated BP. Will resume clonidine 0.1mg po BID for better BP control. Continue home meds for other chronic medical problems and monitor H/H. <Que Ying - Last Filed: 02/02/24 11:58>
[2024-02-02] MEDS: PNEUMOCOCCAL VACCINE 0.5 ML IMVAC ONE (10:20)
--- NOTE | 2024-02-02 15:02 | EKG ---
Test Date: 2024-01-30 Test Time: 13:46:47 Juice Weigher: TENA MEASUREMENT RESULTS: Intervals: Rate: 60 DC: 158 QRSD: 164 QT: 474 QTc: 474 [place]: P: 78 DC: 158 QRS: 75 T: -63 INTERPRETIVE STATEMENTS: AV sequential or dual chamber electronic pacemaker Compared to ECG 09/13/2022 12:48:33 Sinus tachycardia no longer present Left anterior fascicular block no longer present Left ventricular hypertrophy no longer present Early repolarization no longer present Electronically Signed On 02-02-24 14:54:13 CDT by Colin Colby
[2024-02-02] MEDS: TAMSULOSIN 0.4 MG SR CAP PO SCH (17:37)
--- NOTE | 2024-02-02 18:18 | P.PN ---
Subjective Date of Service: 02/02/24 Chief Complaint: Acute renal failure Subjective: Improving STABLE, CONFUSED, TALKING ABOUT HER . Review of Systems is unable to be obtained Physical Examination - Vital Signs Temperature: 97.6 F Blood Pressure: 185/98 Pulse: 76 Respirations: 18 Pulse Ox (%): 94 - Physical Exam General: Oriented x3, Mild distress HEENT: Atraumatic, PERRLA, EOMI Neck: Supple, JVD not distended Respiratory: Clear to auscultation bilaterally, Normal air movement Cardiovascular: Regular rate/rhythm, Normal S1 S2 Gastrointestinal: Normal bowel sounds, No tenderness Musculoskeletal: No tenderness Integumentary: No rashes Neurological: Normal speech, Normal tone, Normal affect Lymphatics: No axilla or inguinal lymphadenopathy - Studies Medications List Reviewed: Yes Assessment And Plan - Current Problems (Diagnosis) (1) Acute renal failure Current Visit: Yes Status: Acute Plan: IMPROVED NO SIGNS OF CHF I WAS OUT OF TOWN UNTIL THIS AM. I WILL CONT CARE NOW. (2) Prerenal azotemia Current Visit: Yes Status: Acute (3) Altered mental status Current Visit: No Status: Acute Plan: SHE HAS BASELINE MILD COGNITIVE IMPAIRMENT. [facility] IDEALLY SHOULD BE IN [place] DA[place]TER [place]. Qualifiers: Altered mental status type: delirium Qualified Code(s): R41.0 - Disorientation, unspecified
--- NOTE | 2024-02-02 19:26 | PN ---
Date of Progress Note: 02/02/2024 Subjective: Seen by bedside. Doing clinically well. No significant shortness of breath. Review of Systems: No chest pain, shortness of breath, orthopnea, or cough. No nausea, vomiting, or diarrhea. All othe r systems were reviewed, they were negative. Objective: Vital Signs: Reviewed. Head and Neck: Pupils are equal, reactive to light. Intact eye movements. No JVD. No cervical lym phadenopathy. Neck is supple. Thyroid is not enlarged. Lungs: Clear to auscultation bilaterally. No rhonchi, wheezing, or crackles. No accessory muscle u se. Heart: Regular rate and rhythm. No extra sounds. Abdomen: Soft, nontender. Bowel sounds positive. No organomegaly. No masses or hernia. No rigidi ty or rebound. Extremities: Trace edema. No clubbing or cyanosis. Intact pulses. Skin: No rash. No nodule. Neurologic: Alert, awake, oriented x3. No acute focal deficits appreciated. Lymph Nodes: No cervical or axillary lymphadenopathy. Investigations: BUN 30, creatinine 1.52, and her hemoglobin is 10. Assessment And Recommendations: 1.Acute renal failure due to dehydration. Creatinine is improving. I recommend to start on low-dos e Lasix 20 mg by mouth daily and monitor. 2.Hyponatremia due to dehydration and resolved by now. She will need Lasix. However, low dose is r ecommended and careful monitoring of her electrolytes. 3.Hyperkalemia. This is resolved. 4.Hypertension. Blood pressure is controlled. Cardiology will sign off. SR/MODL Voice ID: [id number] Report ID: [id number]
[2024-02-02] MEDS: cloNIDine HCL 0.1 MG TAB PO SCH (21:55)
[2024-02-02] MEDS: HYDRALAZINE HCL 25 MG TABLET PO SCH (21:56)
[2024-02-02] MEDS ORDERED: [UNRECOGNIZED DRUG - OTHER] TD SCH (22:00)
[2024-02-02] MEDS ORDERED: CLONIDINE TD SCH (22:00)
--- NOTE | 2024-02-02 22:11 | P.PN ---
Date of Service: 02/02/24 Vital Signs Temp Pulse Resp BP Pulse Ox 97.1 F 76 16 135/80 96 02/02/24 20:00 02/02/24 21:55 02/02/24 20:00 02/02/24 21:55 02/02/24 20:00 Medications Aspirin (Aspirin Ec 81 Mg Tab) 81 mg PO DAILY [facility] Last Admin: 02/02/24 08:46 Dose: 81 mg Carvedilol (Carvedilol 12.5 Mg Tab) 12.5 mg PO BIDWM [facility] Last Admin: 02/02/24 17:37 Dose: 12.5 mg Clonidine HCl (Clonidine Hcl 0.1 Mg Tab) 0.1 mg PO BID [facility] Last Admin: 02/02/24 21:55 Dose: 0.1 mg Clopidogrel Bisulfate (Clopidogrel 75 Mg Tablet) 75 mg PO DAILY [facility] Last Admin: 02/02/24 08:46 Dose: 75 mg Home Med (Biotin [Biotin]) 5 mg PO DAILY [facility] Last Admin: 02/02/24 08:44 Dose: Not Given Home Med (Calcium Carb, Citrate/Vit D3 [Citracal-D3 Er 600 Mg-500 Unit]) 2 tab PO BID [facility] Last Admin: 02/02/24 21:00 Dose: Not Given Home Med (Propylene Glycol/Peg 400/Pf [Systane 0.3-0.4% Eye Drop]) 1 gtt OPTH BID [facility] Last Admin: 02/02/24 21:00 Dose: Not Given Home Med (Vit C/E/Zn/Coppr/Lutein/Zeaxan [Preservision Areds 2 Softgel]) 2 cap PO DAILY [facility] Last Admin: 02/02/24 08:48 Dose: Not Given Hydralazine HCl (Hydralazine Hcl 25 Mg Tablet) 50 mg PO TID [facility] Last Admin: 02/02/24 21:56 Dose: 50 mg Levetiracetam (Levetiracetam 500 Mg Tab) 500 mg PO BID [facility] Last Admin: 02/02/24 21:57 Dose: 500 mg Memantine (Memantine Hcl 10 Mg Tablet) 5 mg PO BID [facility] Last Admin: 02/02/24 21:55 Dose: 5 mg Multivitamins/Minerals (Multivitamin Tab) 1 tab PO DAILY [facility] Last Admin: 02/02/24 08:46 Dose: 1 tab Ondansetron HCl (Ondansetron 4 Mg/2 Ml Vial) 4 mg IV Q6HP PRN PRN Reason: NAUSEA / VOMITING Ondansetron HCl (Ondansetron 4 Mg (Odt) Tab) 4 mg PO Q4H PRN PRN Reason: NAUSEA / VOMITING Pantoprazole Sodium (Pantoprazole 40mg Tablet) 40 mg PO DAILY [facility]; Protocol Last Admin: 02/02/24 08:46 Dose: 40 mg Tamsulosin HCl (Tamsulosin 0.4 Mg Sr Cap) 0.4 mg PO DAILY 6PM [facility] Last Admin: 02/02/24 17:37 Dose: 0.4 mg Venlafaxine HCl (Venlafaxine Hcl Xr 75 Mg Cap) 75 mg PO DAILY [facility] Last Admin: 02/02/24 08:45 Dose: 75 mg Assessment/ Plan: Nephrology No dyspnea No chest pain No acute events overnight Limited IH/ ROS due to mental status Vitals, medications, blood work and imaging reviewed in the chart NAD. MMM. NCAT. Normal Respiratory Effort. S1S2. ND Abd. No C/C. Hip Edema trace. No rash. AAO. Normal speech. Urine light Stage II YULI, improving -No NSAIDs Hyponatremia, improved Hyperkalemia, improved NAG Acidosis, improved HTN with CKD/ CHF -Continue Coreg & Hydralazine Diastolic CHF, chronic -Continue Coreg & Hydralazine Hypoalbuminemia -Consider protein supplementation Anemia in chronic illness -Monitor H&H Hospitalist note reviewed
[2024-02-03 03:54] LABS: Absolute Eosinophils 0.1 K/uL (0-0.5); Absolute Lymphocytes (CBC) 1.4 K/uL (0.7-4.9); Absolute Monocytes 1.1 K/uL (0.1-1.3); Absolute Neutrophil 7.4 K/uL (1.8-8.0); Basophils % 0.3 % (0-1.3); Hematocrit 31.9 % (36.0-45.0); Hemoglobin 10.7 g/dL (12.0-15.0); MCH 31.7 pg (27.0-35.0); MCHC 33.7 g/dL (32.0-36.0); MPV 8.4 fL (7.6-11.3); Monocytes % 11.3 % (3.3-12.3); Neutrophils % 73.4 % (41.7-73.7); Nucleated Red Blood Cells % 0.3 % (0-0); Platelets 202 thou/uL (152-406); RBC Red Blood Cell Count 3.39 M/uL (3.86-4.86); Red Cell Distribution Width 19.6 % (12.1-15.2)
[2024-02-03 04:20] LABS: Anion Gap 12.7 mEq/L (5.0-15.0); Magnesium 1.7 mg/dL (1.6-2.4); Potassium 4.7 mEq/L (3.5-5.1)
[2024-02-03] MEDS: FUROSEMIDE 20 MG TABLET PO SCH (11:40)
[2024-02-03] MEDS: CEFTRIAXONE 1,000 MG in NA CHLORIDE 0.9% 50 ML IVPB SCH (11:41)
--- NOTE | 2024-02-03 18:59 | P.PN ---
Subjective Date of Service: 02/03/24 Chief Complaint: CONFUSED, DISORIENTED Subjective: No new changes STABLE, CONFUSED, TALKING ABOUT HER . DHIRAJ IS CONFUSED SOME AT BASELINE. SHE IS WORSE IN HOSPITAL USUALLY. SHE GETS [facility]IC IN HOSPITAL SHE DOES NOT LIKE IT HERE. Review of Systems is unable to be obtained Physical Examination - Vital Signs Temperature: 97.9 F Blood Pressure: 106/54 Pulse: 95 Respirations: 20 Pulse Ox (%): 95 - Physical Exam General: Oriented x1, Mild distress, Obese HEENT: Atraumatic, PERRLA, EOMI Neck: Supple, JVD not distended Respiratory: Clear to auscultation bilaterally, Normal air movement Cardiovascular: Regular rate/rhythm, Normal S1 S2 Gastrointestinal: Normal bowel sounds, No tenderness Musculoskeletal: No tenderness Integumentary: No rashes Neurological: Normal speech, Other (CONFUSED,HALLUCINATING. SHE CALLS ME [facility]UMP TODAY. ) Lymphatics: No axilla or inguinal lymphadenopathy - Studies Medications List Reviewed: Yes Assessment And Plan - Current Problems (Diagnosis) (1) Acute renal failure Current Visit: Yes Status: Acute Plan: IMPROVED NO SIGNS OF CHF I WAS OUT OF TOWN UNTIL THIS AM. I WILL CONT CARE NOW. WORSE RESTART IV GENTLE STOP LASIX DAILY LAB. BNP HIGH BUT THERE IS NO SIGN OF CHF. (2) Prerenal azotemia Current Visit: Yes Status: Acute (3) Altered mental status Current Visit: No Status: Acute Plan: SHE HAS BASELINE MILD COGNITIVE IMPAIRMENT. [facility] IDEALLY SHOULD BE IN [place] DA[place]. THIAMINE IV DAILY EXELON PATCH. Qualifiers: Altered mental status type: delirium Qualified Code(s): R41.0 - Disorientation, unspecified
--- NOTE | 2024-02-03 19:28 | PN ---
Date of Progress Note: 02/03/2024 Subjective: Seen by bedside. She is having hallucinations and she is delirious. Review of Systems: She denies having any chest pain, shortness of breath, orthopnea, cough. No symptoms. She is confus ed. Physical Examination: Vital signs: Reviewed. Head and Neck: Pupils are equal, reactive to light. Intact eye movements. No cervical lymphadenopa thy. Neck is supple. Thyroid is not enlarged. Lungs: Clear to auscultation bilaterally. No rhonchi, wheezing, crackles. No accessory muscle use. Heart: Regular rate and rhythm. No extra sounds. Abdomen: Soft, nontender. Bowel sounds positive. No organomegaly. No masses or hernia. No rigidi ty or rebound. Extremities: No clubbing, cyanosis. Intact pulses. Skin: No rash. No nodule. Neurologic: Alert, awake, oriented x3. No acute focal deficits appreciated. Lymph Nodes: No cervical or axillary lymphadenopathy. Investigations: BUN 32, creatinine 0.76, and hemoglobin 10.7. Assessment/recommendation: 1.Acute renal failure. She is getting worse. The Lasix was started today. I will see and evaluate her kidney function tomorrow. If it further worsens, then this is to be discontinued. 2.Congestive heart failure. She appears to be euvolemic at the current situation. Continue current management. /MODL Voice ID: [id number] Report ID: [id number]
--- NOTE | 2024-02-03 19:40 | RAD REPORT ---
EXAM DESCRIPTION: RAD - Chest Single View - 02/03/2024 7:32 pm CLINICAL HISTORY: BNP ELEVATION Chest pain. COMPARISON: Chest Single View dated 01/30/2024; Chest Pa And Lat (2 Views) dated 05/14/2023; Chest Sin gle View dated 01/31/2023; Chest Pa And Lat (2 Views) dated 01/14/2023 FINDINGS: Portable technique limits examination quality. The lungs are grossly clear. The heart is mildly enlarged in size. No displaced fractures.Multi lead pacer device. IMPRESSION: No acute intrathoracic process suspected.
[2024-02-03] MEDS: NACHLORIDE 0.45% 1,000 ML IV SCH (20:11)
--- NOTE | 2024-02-03 20:50 | P.PN ---
Date of Service: 02/03/24 Vital Signs Temp Pulse Resp BP Pulse Ox 97.9 F 95 H 20 106/54 L 95 02/03/24 18:59 02/03/24 18:59 02/03/24 18:59 02/03/24 18:59 02/03/24 18:59 Medications Aspirin (Aspirin Ec 81 Mg Tab) 81 mg PO DAILY [facility] Last Admin: 02/03/24 08:49 Dose: 81 mg Carvedilol (Carvedilol 12.5 Mg Tab) 12.5 mg PO BIDWM [facility] Last Admin: 02/03/24 17:51 Dose: 12.5 mg Clonidine HCl (Clonidine Hcl 0.1 Mg Tab) 0.1 mg PO BID [facility] Last Admin: 02/03/24 20:11 Dose: Not Given Clopidogrel Bisulfate (Clopidogrel 75 Mg Tablet) 75 mg PO DAILY [facility] Last Admin: 02/03/24 08:49 Dose: 75 mg Home Med (Biotin [Biotin]) 5 mg PO DAILY [facility] Last Admin: 02/03/24 08:51 Dose: Not Given Home Med (Calcium Carb, Citrate/Vit D3 [Citracal-D3 Er 600 Mg-500 Unit]) 2 tab PO BID [facility] Last Admin: 02/03/24 20:20 Dose: Not Given Home Med (Propylene Glycol/Peg 400/Pf [Systane 0.3-0.4% Eye Drop]) 1 gtt OPTH BID [facility] Last Admin: 02/03/24 20:16 Dose: Not Given Home Med (Vit C/E/Zn/Coppr/Lutein/Zeaxan [Preservision Areds 2 Softgel]) 2 cap PO DAILY [facility] Last Admin: 02/03/24 08:51 Dose: Not Given Hydralazine HCl (Hydralazine Hcl 25 Mg Tablet) 50 mg PO TID [facility] Last Admin: 02/03/24 20:11 Dose: Not Given Ceftriaxone Sodium 1,000 mg/ (Sodium Chloride) 50 mls @ 100 mls/hr IVPB DAILY [facility]; Protocol Last Admin: 02/03/24 11:41 Dose: 50 mls Sodium Chloride (Sodium Chloride 0.45%) 1,000 mls @ 50 mls/hr IV .Q20H [facility] Last Admin: 02/03/24 20:11 Dose: 1,000 mls Levetiracetam (Levetiracetam 500 Mg Tab) 500 mg PO BID [facility] Last Admin: 02/03/24 08:49 Dose: 500 mg Memantine (Memantine Hcl 10 Mg Tablet) 5 mg PO BID [facility] Last Admin: 02/03/24 08:49 Dose: 5 mg Multivitamins/Minerals (Multivitamin Tab) 1 tab PO DAILY [facility] Last Admin: 02/03/24 08:50 Dose: 1 tab Ondansetron HCl (Ondansetron 4 Mg/2 Ml Vial) 4 mg IV Q6HP PRN PRN Reason: NAUSEA / VOMITING Ondansetron HCl (Ondansetron 4 Mg (Odt) Tab) 4 mg PO Q4H PRN PRN Reason: NAUSEA / VOMITING Pantoprazole Sodium (Pantoprazole 40mg Tablet) 40 mg PO DAILY [facility]; Protocol Last Admin: 02/03/24 08:49 Dose: 40 mg Rivastigmine (Rivastigmine 4.6 Mg/24 Hr Patch) 4.6 mg TD DAILY [facility] Tamsulosin HCl (Tamsulosin 0.4 Mg Sr Cap) 0.4 mg PO DAILY 6PM [facility] Last Admin: 02/03/24 17:51 Dose: 0.4 mg Thiamine HCl (Thiamine 200 Mg/2 Ml Inj) 100 mg IVP DAILY [facility] Venlafaxine HCl (Venlafaxine Hcl Xr 75 Mg Cap) 75 mg PO DAILY [facility] Last Admin: 02/03/24 08:49 Dose: 75 mg Assessment/ Plan: Nephrology No dyspnea No chest pain No acute events overnight Limited IH/ ROS due to mental status Vitals, medications, blood work and imaging reviewed in the chart NAD. MMM. NCAT. Normal Respiratory Effort. S1S2. ND Abd. No C/C. Hip Edema trace. No rash. Awake. Normal speech. Urine light Stage II YULI, worse today -No NSAIDs -Agree with gentle IVF Hyponatremia, improved Hyperkalemia, improved NAG Acidosis, improved HTN with CKD/ CHF, variable -Continue Coreg & Hydralazine Diastolic CHF, chronic -Continue Coreg & Hydralazine -Daily weight Hypoalbuminemia -Consider protein supplementation Anemia in chronic illness -Monitor H&H Attending note reviewed
[2024-02-04 01:05] LABS: Specific Gravity 1.012 (1.005-1.030); Sqamous Epithelial None Seen /HPF (None Seen); Urine Bacteria >50 /HPF (<20); Urine Bilirubin NEGATIVE (Negative); Urine Blood Trace (Negative); Urine Clarity Extremely Turbid (Clear); Urine Color Light-Orange (Yellow); Urine Culture Reflex Order REFLEXED; Urine Glucose NEGATIVE (Negative); Urine Ketones NEGATIVE (Negative); Urine Microscopic Reflex YN ORDER UMIC; Urine Nitrite 1+ (Negative); Urine Protein 1+ (Negative); Urine RBC 21-50 /HPF (None Seen); Urine Urobilinogen Normal (Normal); Urine WBC >50 /HPF (<5); Urine WBC Clump Many /HPF (None Seen); Urine pH 5.5 (5.0-7.0)
[2024-02-04 03:55] LABS: Absolute Basophils 0.1 K/uL (0-0.5); Absolute Eosinophils 0.1 K/uL (0-0.5); Absolute Monocytes 1.4 K/uL (0.1-1.3); Absolute Neutrophil 7.8 K/uL (1.8-8.0); Basophils % 0.6 % (0-1.3); Hematocrit 31.9 % (36.0-45.0); Hemoglobin 10.5 g/dL (12.0-15.0); Lymphocytes % 17.2 % (15.3-44.8); MCH 31.4 pg (27.0-35.0); MCHC 32.9 g/dL (32.0-36.0); MCV 95.4 fL (80-100); MPV 8.6 fL (7.6-11.3); Monocytes % 12.4 % (3.3-12.3); Neutrophils % 68.8 % (41.7-73.7); Nucleated Red Blood Cells % 0.2 % (0-0); Platelets 213 thou/uL (152-406); RBC Red Blood Cell Count 3.34 M/uL (3.86-4.86); Red Cell Distribution Width 18.4 % (12.1-15.2)
[2024-02-04 04:10] LABS: Anion Gap 11.6 mEq/L (5.0-15.0); Potassium 4.6 mEq/L (3.5-5.1)
[2024-02-04] MEDS: THIAMINE 200 MG/2 ML INJ IVP SCH (09:41)
[2024-02-04] MEDS: RIVASTIGMINE 4.6 MG/24 HR PATCH TD SCH (09:54)
--- NOTE | 2024-02-04 17:41 | P.PN ---
Subjective Date of Service: 02/04/24 Chief Complaint: LOT MORE AWAKE Subjective: Improving STABLE, CONFUSED, TALKING ABOUT HER . DHIRAJ IS CONFUSED SOME AT BASELINE. SHE IS WORSE IN HOSPITAL USUALLY. SHE GETS [facility] IN HOSPITAL SHE DOES NOT LIKE IT HERE. SHE IS BETTER MAKING SENSE TODAY DAUGHTER AT . Review of Systems 10-point ROS is otherwise unremarkable General: Weakness, As per HPI Physical Examination - Vital Signs Temperature: 97 F Blood Pressure: 122/70 Pulse: 77 Respirations: 16 Pulse Ox (%): 93 - Physical Exam General: Mild distress HEENT: Atraumatic, PERRLA, EOMI Neck: Supple, JVD not distended Respiratory: Clear to auscultation bilaterally, Normal air movement Cardiovascular: Regular rate/rhythm, Normal S1 S2 Gastrointestinal: Normal bowel sounds, No tenderness Musculoskeletal: No tenderness Integumentary: No rashes Neurological: Normal speech, Normal tone, Normal affect, Other (GEN WEAKNESS.) Lymphatics: No axilla or inguinal lymphadenopathy - Studies Medications List Reviewed: Yes Assessment And Plan - Current Problems (Diagnosis) (1) Acute renal failure Current Visit: Yes Status: Acute Plan: IMPROVED NO SIGNS OF CHF I WAS OUT OF TOWN UNTIL THIS AM. I WILL CONT CARE NOW. WORSE RESTART IV GENTLE STOP LASIX DAILY LAB. BNP HIGH BUT THERE IS NO SIGN OF CHF. CREAT MILD HIGHER RAISE IV F ADV PROTEIN (2) Prerenal azotemia Current Visit: Yes Status: Acute (3) Altered mental status Current Visit: No Status: Acute Plan: THIAMINE IV DAILY EXELON PATCH. IMPROVED. Qualifiers: Altered mental status type: delirium Qualified Code(s): R41.0 - Disorientation, unspecified
[2024-02-04] MEDS: HYDRALAZINE HCL 25 MG TABLET PO SCH (19:00)
[2024-02-04] MEDS: cloNIDine HCL 0.1 MG TAB PO SCH (19:00)
[2024-02-04] MEDS: NACHLORIDE 0.45% 1,000 ML IV SCH (19:30)
[2024-02-04] MEDS: JUVEN PACKET PO SCH (21:00)
[2024-02-04] MEDS: DOCUSATE NA 100 MG CAP PO SCH (21:04)
[2024-02-04] MEDS: POLYETHYL GLY 3350 17 GM/DOSE PO ONE (21:05)
--- NOTE | 2024-02-04 22:24 | P.PN ---
Date of Service: 02/04/24 Vital Signs Temp Pulse Resp BP Pulse Ox 97.2 F 75 16 120/72 94 02/04/24 20:00 02/04/24 20:00 02/04/24 20:00 02/04/24 20:00 02/04/24 20:00 Medications Aspirin (Aspirin Ec 81 Mg Tab) 81 mg PO DAILY [facility] Last Admin: 02/04/24 09:41 Dose: 81 mg Carvedilol (Carvedilol 12.5 Mg Tab) 12.5 mg PO BIDWM [facility] Last Admin: 02/04/24 17:03 Dose: 12.5 mg Clonidine HCl (Clonidine Hcl 0.1 Mg Tab) 0.1 mg PO BID [facility] Last Admin: 02/04/24 19:00 Dose: Not Given Clopidogrel Bisulfate (Clopidogrel 75 Mg Tablet) 75 mg PO DAILY [facility] Last Admin: 02/04/24 09:55 Dose: 75 mg Docusate Sodium (Docusate Na 100 Mg Cap) 100 mg PO BID [facility] Last Admin: 02/04/24 21:04 Dose: 100 mg Home Med (Biotin [Biotin]) 5 mg PO DAILY [facility] Last Admin: 02/04/24 09:00 Dose: Not Given Home Med (Calcium Carb, Citrate/Vit D3 [Citracal-D3 Er 600 Mg-500 Unit]) 2 tab PO BID [facility] Last Admin: 02/04/24 21:00 Dose: Not Given Home Med (Propylene Glycol/Peg 400/Pf [Systane 0.3-0.4% Eye Drop]) 1 gtt OPTH BID [facility] Last Admin: 02/04/24 21:00 Dose: Not Given Home Med (Vit C/E/Zn/Coppr/Lutein/Zeaxan [Preservision Areds 2 Softgel]) 2 cap PO DAILY [facility] Last Admin: 02/04/24 09:00 Dose: Not Given Hydralazine HCl (Hydralazine Hcl 25 Mg Tablet) 50 mg PO TID [facility] Last Admin: 02/04/24 19:00 Dose: Not Given Ceftriaxone Sodium 1,000 mg/ (Sodium Chloride) 50 mls @ 100 mls/hr IVPB DAILY [facility]; Protocol Last Admin: 02/04/24 09:54 Dose: 50 mls Sodium Chloride (Sodium Chloride 0.45%) 1,000 mls @ 75 mls/hr IV .[id number] [facility] Last Admin: 02/04/24 19:30 Dose: 1,000 mls L-Arginine/L-Glutamine/HMB (Orlin Packet) 1 pkt PO BID [facility] Last Admin: 02/04/24 21:00 Dose: 1 pkt Levetiracetam (Levetiracetam 500 Mg Tab) 500 mg PO BID [facility] Last Admin: 02/04/24 21:05 Dose: 500 mg Memantine (Memantine Hcl 10 Mg Tablet) 5 mg PO BID [facility] Last Admin: 02/04/24 21:05 Dose: 5 mg Multivitamins/Minerals (Multivitamin Tab) 1 tab PO DAILY [facility] Last Admin: 02/04/24 09:41 Dose: 1 tab Ondansetron HCl (Ondansetron 4 Mg/2 Ml Vial) 4 mg IV Q6HP PRN PRN Reason: NAUSEA / VOMITING Ondansetron HCl (Ondansetron 4 Mg (Odt) Tab) 4 mg PO Q4H PRN PRN Reason: NAUSEA / VOMITING Rivastigmine (Rivastigmine 4.6 Mg/24 Hr Patch) 4.6 mg TD DAILY [facility] Last Admin: 02/04/24 09:54 Dose: 4.6 mg Tamsulosin HCl (Tamsulosin 0.4 Mg Sr Cap) 0.4 mg PO DAILY 6PM [facility] Last Admin: 02/04/24 17:03 Dose: 0.4 mg Thiamine HCl (Thiamine 200 Mg/2 Ml Inj) 100 mg IVP DAILY [facility] Last Admin: 02/04/24 09:41 Dose: 100 mg Venlafaxine HCl (Venlafaxine Hcl Xr 75 Mg Cap) 75 mg PO DAILY [facility] Last Admin: 02/04/24 09:41 Dose: 75 mg Assessment/ Plan: Nephrology No dyspnea No chest pain Improved mental status. Case reviewed with the daughter. No BM. No acute events overnight Vitals, medications, blood work and imaging reviewed in the chart NAD. MMM. NCAT. Normal Respiratory Effort. S1S2. ND Abd. No C/C. Hip Edema trace. No rash. Awake. Normal speech. Urine light Stage II YULI in the setting of hypotension yesterday -No NSAIDs -Agree with gentle IVF Hyponatremia -Continue IVF with NS -Encourage nutrition Hyperkalemia, improved NAG Acidosis, improved HTN with CKD/ CHF, variable -Continue Coreg & Hydralazine Diastolic CHF, chronic -Continue Coreg & Hydralazine -Daily weight Hypoalbuminemia -Consider protein supplementation Anemia in chronic illness -Monitor H&H Attending note reviewed
[2024-02-05 02:26] LABS: Sqamous Epithelial <5 /HPF (None Seen); Urine Bacteria <20 /HPF (<20); Urine Bilirubin NEGATIVE (Negative); Urine Blood Negative (Negative); Urine Clarity Turbid (Clear); Urine Color Yellow (Yellow); Urine Culture Reflex Order REFLEXED; Urine Glucose NEGATIVE (Negative); Urine Ketones NEGATIVE (Negative); Urine Micro Reflex YN NO BILL MICROSCOPIC; Urine Nitrite 1+ (Negative); Urine Protein TRACE (Negative); Urine RBC <5 /HPF (None Seen); Urine Urobilinogen Normal (Normal); Urine WBC 20-50 /HPF (<5); Urine pH 5.5 (5.0-7.0)
[2024-02-05 02:48] LABS: MA/CREAT RATIO 56.7 (< 30.0); UR MICROALBUMIN 7.2 mg/dL (< 1.9)
[2024-02-05 04:15] LABS: Absolute Eosinophils 0.2 K/uL (0-0.5); Absolute Lymphocytes (CBC) 2.1 K/uL (0.7-4.9); Absolute Monocytes 1.2 K/uL (0.1-1.3); Absolute Neutrophil 5.6 K/uL (1.8-8.0); Basophils % 0.4 % (0-1.3); Eosinophils % 2.4 % (0-4.4); Hemoglobin 9.7 g/dL (12.0-15.0); Lymphocytes % 22.7 % (15.3-44.8); MCHC 32.5 g/dL (32.0-36.0); MCV 95.5 fL (80-100); Monocytes % 12.7 % (3.3-12.3); Neutrophils % 61.8 % (41.7-73.7); Nucleated Red Blood Cells % 0.1 % (0-0); Platelets 207 thou/uL (152-406); RBC Red Blood Cell Count 3.14 M/uL (3.86-4.86); Red Cell Distribution Width 18.2 % (12.1-15.2)
[2024-02-05 04:26] LABS: Anion Gap 10.4 mEq/L (5.0-15.0); Potassium 4.4 mEq/L (3.5-5.1)
[2024-02-05] MEDS: ENSURE HIGH PROTEIN 237 ML CAN PO SCH (20:34)
--- NOTE | 2024-02-05 21:51 | P.PN ---
Subjective Date of Service: 02/05/24 Chief Complaint: LOT MORE AWAKE Subjective: Improving STABLE, CONFUSED, TALKING ABOUT HER . DHIRAJ IS CONFUSED SOME AT BASELINE. SHE IS WORSE IN HOSPITAL USUALLY. SHE GETS [facility] IN HOSPITAL SHE DOES NOT LIKE IT HERE. SHE IS BETTER MAKING SENSE TODAY DAUGHTER AT [place]. ONCE AGAIN INSURANCE HAS REJECTED THE SNIF. [employer] TEXTED ME. I CALLED THE NUMBER GIVEN TO ME BUT THEY NEED INSURANCE NUMBER ETC. I WANT [employer]AC TANNER TO PROVIDE ALL INFORMATION TO THEM BEFORE I CALL AGAIN. Review of Systems 10-point ROS is otherwise unremarkable General: Weakness Physical Examination - Vital Signs Temperature: 97.2 F Blood Pressure: 150/91 Pulse: 73 Respirations: 20 Pulse Ox (%): 96 - Physical Exam General: Mild distress, Obese HEENT: Atraumatic, PERRLA, EOMI Neck: Supple, JVD not distended Respiratory: Clear to auscultation bilaterally, Normal air movement Cardiovascular: Regular rate/rhythm, Normal S1 S2 Gastrointestinal: Normal bowel sounds, No tenderness Musculoskeletal: No tenderness Integumentary: No rashes Neurological: Normal speech, Other (GEN WEAK, USUALLY WALKS BUT NOT ABLE TO DO SO NOW. NEEDS TO GO TO SNF) Lymphatics: No axilla or inguinal lymphadenopathy - Studies Medications List Reviewed: Yes Assessment And Plan - Current Problems (Diagnosis) (1) Acute renal failure Current Visit: Yes Status: Acute Plan: IMPROVED NO SIGNS OF CHF I WAS OUT OF TOWN UNTIL THIS AM. I WILL CONT CARE NOW. WORSE RESTART IV GENTLE STOP LASIX DAILY LAB. BNP HIGH BUT THERE IS NO SIGN OF CHF. CREAT MILD HIGHER RAISE IV F ADV PROTEIN CREAT COMING DOWN HYDRATION IS WORKING. (2) Prerenal azotemia Current Visit: Yes Status: Acute (3) Altered mental status Current Visit: No Status: Acute Plan: THIAMINE IV DAILY EXELON PATCH. IMPROVED. Qualifiers: Altered mental status type: delirium Qualified Code(s): R41.0 - Disorientation, unspecified
[2024-02-05] MEDS: NACHLORIDE 0.45% 1,000 ML IV SCH (22:30)
--- NOTE | 2024-02-05 22:36 | P.PN ---
Date of Service: 02/05/24 Vital Signs Temp Pulse Resp BP Pulse Ox 97.2 F 73 20 150/91 H 96 02/05/24 21:51 02/05/24 21:51 02/05/24 21:51 02/05/24 21:51 02/05/24 21:51 Medications Aspirin (Aspirin Ec 81 Mg Tab) 81 mg PO DAILY [facility] Last Admin: 02/05/24 08:23 Dose: 81 mg Carvedilol (Carvedilol 12.5 Mg Tab) 12.5 mg PO BIDWM [facility] Last Admin: 02/05/24 17:14 Dose: 12.5 mg Clonidine HCl (Clonidine Hcl 0.1 Mg Tab) 0.1 mg PO BID [facility] Last Admin: 02/05/24 20:33 Dose: 0.1 mg Clopidogrel Bisulfate (Clopidogrel 75 Mg Tablet) 75 mg PO DAILY [facility] Last Admin: 02/05/24 08:21 Dose: 75 mg Docusate Sodium (Docusate Na 100 Mg Cap) 100 mg PO BID [facility] Last Admin: 02/05/24 20:32 Dose: 100 mg Home Med (Biotin [Biotin]) 5 mg PO DAILY [facility] Last Admin: 02/05/24 08:26 Dose: Not Given Home Med (Calcium Carb, Citrate/Vit D3 [Citracal-D3 Er 600 Mg-500 Unit]) 2 tab PO BID [facility] Last Admin: 02/05/24 20:33 Dose: Not Given Home Med (Propylene Glycol/Peg 400/Pf [Systane 0.3-0.4% Eye Drop]) 1 gtt OPTH BID [facility] Last Admin: 02/05/24 20:34 Dose: Not Given Home Med (Vit C/E/Zn/Coppr/Lutein/Zeaxan [Preservision Areds 2 Softgel]) 2 cap PO DAILY [facility] Last Admin: 02/05/24 08:25 Dose: Not Given Hydralazine HCl (Hydralazine Hcl 25 Mg Tablet) 50 mg PO TID [facility] Last Admin: 02/05/24 20:32 Dose: 50 mg Ceftriaxone Sodium 1,000 mg/ (Sodium Chloride) 50 mls @ 100 mls/hr IVPB DAILY [facility]; Protocol Last Admin: 02/05/24 08:25 Dose: 50 mls Sodium Chloride (Sodium Chloride 0.45%) 1,000 mls @ 50 mls/hr IV .Q20H [facility] Last Admin: 02/05/24 22:30 Dose: 1,000 mls Levetiracetam (Levetiracetam 500 Mg Tab) 500 mg PO BID [facility] Last Admin: 02/05/24 20:32 Dose: 500 mg Memantine (Memantine Hcl 10 Mg Tablet) 5 mg PO BID [facility] Last Admin: 02/05/24 20:33 Dose: 5 mg Multivitamins/Minerals (Multivitamin Tab) 1 tab PO DAILY [facility] Last Admin: 02/05/24 08:29 Dose: 1 tab Nutritional Formula (Ensure High Protein 237 Ml Can) 237 ml PO BID [facility] Last Admin: 02/05/24 20:34 Dose: 237 ml Ondansetron HCl (Ondansetron 4 Mg/2 Ml Vial) 4 mg IV Q6HP PRN PRN Reason: NAUSEA / VOMITING Ondansetron HCl (Ondansetron 4 Mg (Odt) Tab) 4 mg PO Q4H PRN PRN Reason: NAUSEA / VOMITING Rivastigmine (Rivastigmine 4.6 Mg/24 Hr Patch) 4.6 mg TD DAILY [facility] Last Admin: 02/05/24 08:23 Dose: 4.6 mg Tamsulosin HCl (Tamsulosin 0.4 Mg Sr Cap) 0.4 mg PO DAILY 6PM [facility] Last Admin: 02/05/24 17:14 Dose: 0.4 mg Thiamine HCl (Thiamine 200 Mg/2 Ml Inj) 100 mg IVP DAILY [facility] Last Admin: 02/05/24 08:24 Dose: 100 mg Venlafaxine HCl (Venlafaxine Hcl Xr 75 Mg Cap) 75 mg PO DAILY [facility] Last Admin: 02/05/24 08:22 Dose: 75 mg Assessment/ Plan: Nephrology No dyspnea No chest pain Fatigue and weakness No acute events overnight Vitals, medications, blood work and imaging reviewed in the chart NAD. MMM. NCAT. Normal Respiratory Effort. S1S2. ND Abd. No C/C. Hip Edema trace. No rash. Awake. Normal speech. Urine light Stage II YULI in the setting of hypotension yesterday -No NSAIDs -Agree with gentle IVF Hyponatremia -Continue IVF with NS -Encourage nutrition Hyperkalemia, improved NAG Acidosis, improved HTN with CKD/ CHF, variable -Continue Coreg & Hydralazine Diastolic CHF, chronic -Continue Coreg & Hydralazine -Daily weight Hypoalbuminemia -Consider protein supplementation Anemia in chronic illness -Monitor H&H Attending note reviewed
[2024-02-06 03:36] LABS: Absolute Basophils 0.1 K/uL (0-0.5); Absolute Eosinophils 0.3 K/uL (0-0.5); Absolute Lymphocytes (CBC) 1.4 K/uL (0.7-4.9); Absolute Neutrophil 4.7 K/uL (1.8-8.0); Basophils % 0.8 % (0-1.3); Eosinophils % 4.5 % (0-4.4); Hematocrit 29.3 % (36.0-45.0); Hemoglobin 9.6 g/dL (12.0-15.0); Lymphocytes % 18.8 % (15.3-44.8); MCH 31.2 pg (27.0-35.0); MCHC 32.7 g/dL (32.0-36.0); MCV 95.3 fL (80-100); MPV 9.3 fL (7.6-11.3); Monocytes % 13.4 % (3.3-12.3); Neutrophils % 62.5 % (41.7-73.7); Nucleated Red Blood Cells % 0.1 % (0-0); Platelets 221 thou/uL (152-406); RBC Red Blood Cell Count 3.07 M/uL (3.86-4.86); Red Cell Distribution Width 17.6 % (12.1-15.2)
[2024-02-06 03:56] LABS: Anion Gap 12.4 mEq/L (5.0-15.0); Potassium 4.4 mEq/L (3.5-5.1)
--- NOTE | 2024-02-06 11:29 | P.PN ---
Nephrology note (S) Pt obtunded this AM, will not arouse for me but withdraws some on exam, in the prior 24h has been more restless at times, earlier this AM, it appears she took some of her meds. She has been on gentle IVF, tray untouched at bedside, BP has been labile, soft this AM (O) vitals reviewed in the EMR PE Elderly, NAD, non toxic, off LFNC, non labored breathing, non tachypnec. Non tachy, upper chest PPM. Soft, mild distention, mild guarding, dependent edema 2+, less tight, shins mildly tender. Obtunded, withdraws some on abd exam Labs reviewed in the EMR A/P) 1. Sub-acute Stage II YULI that was likely multifactorial and could certainly reflect functional injury in the setting of severe anemia, low perfusion state and/or normotensive renal ischemia in the setting of relative BP lowering, other. Cr level had peaked and was slowly downward trending before rising back up with some BP lowering, other. Poor PO intake currently, so cont gentle IVF 2. 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 Mild hyperkalemia in the setting of renal impairment -resolved earlier, cont to hold Spironolactone 4. Non gap metab acidosis -bicarb deficit improved 4. Unspecified CHF, ischemic cardiomyopathy per reports. BNP impressively elevated, seen by Cards initially, currently Lasix held. 5. Chronic HTN -labile BP, up and down, recommend against Clonidine use in a elderly pt who has dementia and waxing/waning alertness, other. Cont holding parameters on lower dose Coreg and hydralazine
[2024-02-06] MEDS: NA CHLORIDE 0.9% 1,000 ML IV SCH (11:41)
[2024-02-06] MEDS: HYDRALAZINE HCL 25 MG TABLET PO SCH (21:00)
--- NOTE | 2024-02-06 21:04 | P.PN ---
Subjective Date of Service: 02/06/24 Chief Complaint: LOT MORE AWAKE Subjective: No new changes STABLE, CONFUSED, TALKING ABOUT HER . DHIRAJ IS CONFUSED SOME AT BASELINE. SHE IS WORSE IN HOSPITAL USUALLY. SHE GETS CATAT[facility]IC IN HOSPITAL SHE DOES NOT LIKE IT HERE. SHE IS BETTER MAKING SENSE TODAY DAUGHTER AT BS. ONCE AGAIN INSURANCE HAS REJECTED THE SNIF. CAREPLANNER TEXTED ME. I CALLED THE NUMBER GIVEN TO ME BUT THEY NEED INSURANCE NUMBER ETC. I WANT ESL INSTRUCTIONAL ASSISTANT TO PROVIDE ALL INFORMATION TO THEM BEFORE I CALL AGAIN. WOKE UP SOMEWHAT. WHEN IN HOSPITAL SHE ALMOST ALWAYS GETS [facility]. SHE WILL HOPEFULLY GET BETTER. Review of Systems is unable to be obtained Physical Examination - Vital Signs Temperature: 96.8 F Blood Pressure: 158/77 Pulse: 62 Respirations: 17 Pulse Ox (%): 97 - Physical Exam General: Mild distress, Confused (AT BASELINE. BUT LOT MORE SLEEPY NOW.) HEENT: Atraumatic, PERRLA, EOMI Neck: Supple, JVD not distended Respiratory: Clear to auscultation bilaterally, Normal air movement Cardiovascular: Regular rate/rhythm, Normal S1 S2 Gastrointestinal: Normal bowel sounds, No tenderness Musculoskeletal: No tenderness Integumentary: No rashes Neurological: Normal speech, Normal tone, Normal affect Lymphatics: No axilla or inguinal lymphadenopathy - Studies Medications List Reviewed: Yes Assessment And Plan - Current Problems (Diagnosis) (1) Acute renal failure Current Visit: Yes Status: Acute Plan: IMPROVED NO SIGNS OF CHF I WAS OUT OF TOWN UNTIL THIS AM. I WILL CONT CARE NOW. WORSE RESTART IV GENTLE STOP LASIX DAILY LAB. BNP HIGH BUT THERE IS NO SIGN OF CHF. CREAT MILD HIGHER RAISE IV F ADV PROTEIN CREAT COMING DOWN HYDRATION IS WORKING. (2) Prerenal azotemia Current Visit: Yes Status: Acute (3) Altered mental status Current Visit: No Status: Acute Plan: THIAMINE IV DAILY EXELON PATCH. IMPROVED. Qualifiers: Altered mental status type: delirium Qualified Code(s): R41.0 - Disorientation, unspecified (4) Dehydration Current Visit: No Status: Acute Plan: IMPROVE CREAT. (5) Metabolic encephalopathy Current Visit: No Status: Acute Plan: FROM RENAL ACUTE ON CHRONIC FAILURE. SHOULD IMPROVE. SHE IS WORSE OVER TIME. (6) Alzheimer disease Current Visit: No Status: Chronic
[2024-02-07 06:36] LABS: Absolute Eosinophils 0.2 K/uL (0-0.5); Absolute Lymphocytes (CBC) 0.9 K/uL (0.7-4.9); Absolute Monocytes 0.7 K/uL (0.1-1.3); Absolute Neutrophil 5.1 K/uL (1.8-8.0); Basophils % 0.6 % (0-1.3); Eosinophils % 3.5 % (0-4.4); Hematocrit 32.4 % (36.0-45.0); Hemoglobin 10.6 g/dL (12.0-15.0); Lymphocytes % 13.1 % (15.3-44.8); MCHC 32.8 g/dL (32.0-36.0); MCV 97.4 fL (80-100); Monocytes % 10.1 % (3.3-12.3); Neutrophils % 72.7 % (41.7-73.7); Nucleated Red Blood Cells % 0.2 % (0-0); Platelets 233 thou/uL (152-406); RBC Red Blood Cell Count 3.33 M/uL (3.86-4.86); Red Cell Distribution Width 17.8 % (12.1-15.2)
[2024-02-07 06:41] LABS: Anion Gap 12.5 mEq/L (5.0-15.0); Potassium 4.5 mEq/L (3.5-5.1)
[2024-02-07] MEDS: cloNIDine HCL 0.1 MG TAB PO SCH (09:20)
[2024-02-07 12:59] VITALS: TEMP 97.4
[2024-02-07 14:10] VITALS: O2SAT 98
[2024-02-07 15:24] VITALS: BP 140/62
--- NOTE | 2024-02-07 16:02 | CON ---
Date of Consultation: 02/07/2024 Subjective: The patient is seen and examined at bedside. She is a poor historian, unable to give mu ch history. Physical Examination: Vital Signs: Reviewed and are stable. General: She appears in no acute distress. Lungs: Clear to auscultation. Abdomen: Soft and nontender. Extremities: Showed no evidence of edema. Laboratory Data: Showing creatinine improving to 1.19. The electrolytes are stable. CBC is showing stable hemoglobin, hematocrit, and platelet count. Current Medications: Reviewed include aspirin, calcium, carvedilol, clonidine, Plavix, Ke ppra, Namenda, normal saline at 50 cc an hour, Rocephin. Impression: 1.Acute renal failure secondary to acute tubular necrosis and dehydration. Currently with improving renal function. Continue gentle hydration. Change IV fluids to hypotonic solutions to prevent furt her worsening of hypotension. 2.Hypotonic hyponatremia, improving. 3.Mild hyperkalemia, improved. 4.Non anion gap metabolic acidosis, resolved. 5.Underlying congestive heart failure, currently compensated. Continue gentle hydration. 6.Uncontrolled hypertension. The patient has labile blood pressures with labile hypertension. Daija hernandez per primary team. VV/MODL Voice ID: [id number] Report ID: [id number]
[2024-02-09] MEDS ORDERED: CLONIDINE 0.3 MG/PATCH TD SCH (09:00)
--- NOTE | 2024-02-10 21:54 | P.DS ---
Admission Date: 01/30/24 Discharge Date: 02/10/24 Disposition: TRANSFER TO GROUP HOME Discharge Condition: FAIR Reason for Admission: LOT MORE AWAKE - Problems (1) Acute renal failure Status: Acute (2) Prerenal azotemia Status: Acute (3) Altered mental status Status: Acute Qualifiers: Altered mental status type: delirium Qualified Code(s): R41.0 - Disorientation, unspecified (4) Dehydration Status: Acute (5) Metabolic encephalopathy Status: Acute (6) Alzheimer disease Status: Chronic Hospital Course: DHIRAJ CAME WITH DEHYDRATION, WEAKNESS, CONFUSION, UTI AND HAS HAD MANY OTHER ISSUES LIKE ATYPICAL SEIZURES. IT TOOK SOME TIME TO IMPROVE DEHYDRATION, UTI, CONFUSION BACK TO CLOSE TO BASELINE. SHE IS SENT TO CT FOR PT. Vital Signs/Physical Exam: Temp Pulse Resp BP Pulse Ox 97.4 F 61 16 140/62 98 02/07/24 12:00 02/07/24 15:10 02/07/24 12:00 02/07/24 15:10 02/07/24 12:00 Laboratory Data at Discharge: WBC 7.00 thou/uL (4.3-10.9) 02/07/24 06:08 Hgb 10.6 g/dL (12.0-15.0) L D 02/07/24 06:08 Hct 32.4 % (36.0-45.0) L 02/07/24 06:08 Plt Count 233 thou/uL (152-406) 02/07/24 06:08 PT 11.5 SECONDS (9.5-12.5) 01/30/24 13:00 INR 1.05 01/30/24 13:00 Sodium 136 mEq/L (136-145) 02/07/24 06:08 Potassium 4.5 mEq/L (3.5-5.1) 02/07/24 06:08 BUN 29 mg/dL (7-18) H 02/07/24 06:08 Creatinine 1.19 mg/dL (0.55-1.02) H 02/07/24 06:08 Glucose 60 mg/dL (74-106) L 02/07/24 06:08 Uric Acid 8.0 mg/dL (2.6-6.0) H 02/05/24 03:37 Magnesium 1.7 mg/dL (1.6-2.4) 02/03/24 03:00 Total Bilirubin 0.5 mg/dL (0.2-1.0) 01/31/24 02:41 AST 34 U/L (15-37) 01/31/24 02:41 ALT 26 U/L (13-56) 01/31/24 02:41 Alkaline Phosphatase 92 U/L (45-117) 01/31/24 02:41 Home Medications: Aspirin [Aspirin EC] 81 mg PO DAILY 05/04/22 Biotin 5 mg PO DAILY 05/04/22 Calcium Carb, Citrate/Vit D3 [Citracal-D3 ER 600 mg-500 Unit] 2 tab PO BID 05/04/22 Memantine HCl 5 mg PO BID 05/04/22 Multivitamin [Daily Nicole] 1 tab PO DAILY 05/04/22 Ondansetron [Zofran (Odt)*] 4 mg PO Q4H PRN 05/04/22 Propylene Glycol/Peg 400/Pf [Systane 0.3-0.4% Eye Drop] 1 gtt OPTH BID 05/04/22 Triamcinolone Acetonide 1 appl TOP Q12H PRN 05/04/22 Venlafaxine HCl [Venlafaxine HCl ER] 1 cap PO DAILY 05/04/22 Vit C/E/Zn/Coppr/Lutein/Zeaxan [Preservision Areds 2 Softgel] 2 cap PO DAILY 05/04/22 Clopidogrel Bisulfate [Plavix] 75 mg PO DAILY 01/14/23 Pantoprazole [Protonix Tab*] 40 mg PO DAILY 01/14/23 Famotidine [Pepcid*] 1 mg PO DAILY 01/28/23 Metoprolol Succinate [Toprol Xl*] 25 mg PO DAILY 01/28/23 Tamsulosin [Flomax*] 0.4 mg PO DAILY 6PM 01/28/23 Clonidine Patch [Catapres-Tts 3*] 0.3 mg TD Q7D@2200 01/30/23 levETIRAcetam [Keppra] 500 mg PO BID #60 02/05/23 Docusate [Colace Cap*] 100 mg PO BID cap 02/07/24 Ensure High Protein 237 ml PO BID can 02/07/24 Rivastigmine Patch [Exelon 4.6 mg Patch*] 4.6 mg TD DAILY pat 02/07/24 carvediloL [Coreg*] 12.5 mg PO BIDWM tab 02/07/24 Followup: Jeremy Frost MD [Primary Care Provider] - 1 Week (follow up 1 week)
== END 2024-02-07 15:24 | DRG 682 ==
LOC: ER 12:10 → ERHOLD 15:11 → 2ND 17:06
PROVIDERS: ADMIT Hospitalist; ATTEND Internal Medicine
PROC: 30233N1 Transfusion of Nonautologous Red Blood Cells into Peripheral Vein, Percutaneous Approach (ICD-10-PCS; principal; 2024-01-30)
DX: N17.0 Acute kidney failure with tubular necrosis (principal); G93.41 Metabolic encephalopathy; E87.1 Hypo-osmolality and hyponatremia; I50.32 Chronic diastolic (congestive) heart failure; E87.21 Acute metabolic acidosis; N39.0 Urinary tract infection, site not specified; E86.0 Dehydration; E87.5 Hyperkalemia; I48.91 Unspecified atrial fibrillation; Z79.01 Long term (current) use of anticoagulants; G30.9 Alzheimer's disease, unspecified; F02.80 Dementia in other diseases classified elsewhere, unspecified severity, without behavioral disturbance, psychotic disturbance, mood disturbance, and anxiety; I11.0 Hypertensive heart disease with heart failure; Z95.0 Presence of cardiac pacemaker; K21.9 Gastro-esophageal reflux disease without esophagitis; K44.9 Diaphragmatic hernia without obstruction or gangrene; Z90.49 Acquired absence of other specified parts of digestive tract; I25.10 Atherosclerotic heart disease of native coronary artery without angina pectoris; Z98.61 Coronary angioplasty status; D64.9 Anemia, unspecified; I25.5 Ischemic cardiomyopathy; B96.20 Unspecified Escherichia coli [E. coli] as the cause of diseases classified elsewhere
CPT/HCPCS: 36415; 71045; 80048; 80076; 81001; 82043; 82435; 82570; 83735; 83880; 83935; 84132; 84300; 84484; 84550; 85014; 85018; 85025; 85610; 86850; 86900; 86901; 86920; 87077; 87086; 87088; 87186; 93005; 94760; 96365; 96366; 97110; 97116; 97163; 97530; 99285; J0696; J1940; J3411; J7030; J7040; J7050; P9016; P9047

== ENCOUNTER 2024-03-27 19:07 | Emergency (ER) | payer OTHER ==
--- NOTE | 2024-03-27 20:13 | RAD REPORT ---
EXAM DESCRIPTION: CT - Head C Spine Mpr Wo Con - 03/27/2024 7:55 pm CLINICAL HISTORY: Head and neck injury status post fall. Head and neck pain COMPARISON: 2020 TECHNIQUE: Computed axial tomography of the head and cervical spine was obtained. Sagittal and coronal reconstruction was performed. All CT scans are performed using dose optimization technique as appropriate and may include automated exposure control or mA/KV adjustment according to patient size. FINDINGS: Right periorbital hematoma An intracranial bleed is not seen. The ventricles are normal in caliber. No significant hypodensity within the brain. An extra-axial fluid collection is not noted. Fluid within the visualized sinuses and mastoids is not seen A cervical fracture is not visualized. No dislocation is noted. Borderline basilar invagination IMPRESSION: No acute intracranial abnormality is seen. A cervical fracture is not visualized. Borderline basilar invagination If the patient continues to have symptoms to suggest intracranial /spinal cord pathology then MRI wou ld be recommended
--- NOTE | 2024-03-27 20:13 | RAD REPORT ---
EXAM DESCRIPTION: CT - Facial Bones W/ Mpr - 03/27/2024 7:55 pm CLINICAL HISTORY: Facial injury with pain status post fall COMPARISON: None TECHNIQUE: Computed axial tomography of the face was obtained. Coronal and sagittal reconstruction w as performed. All CT scans are performed using dose optimization technique as appropriate and may include automated exposure control or mA/KV adjustment according to patient size. FINDINGS: Right periorbital hematoma. A fracture is not seen. A TMJ dislocation is not noted. The globes are intact. Fluid within the sinuses is not seen. IMPRESSION: Negative for a facial fracture.
--- NOTE | 2024-03-27 20:31 | ER ---
Nurse's Notes [facility] Name: Larissa Wharton Age: 88 yrs Sex: Female : 1935 Arrival Date: 03/27/2024 Time: 19:07 Bed 13 Private MD: Diagnosis: Unspecified injury of head, initial encounter;Hematoma of right side of forehead Presentation: 03/27 19:26 Chief complaint: Patient states: Was reaching forward to grab a fork and fell forward cm10 out of her wheelchair and hit her head. Pt has hematoma above right eyebrow. Coronavirus screen: Client denies travel out of the [place] in the last 14 days. At this time, the client does not indicate any symptoms associated with coronavirus-19. Ebola Screen: Patient denies travel to an Ebola-affected area in the 21 days before illness onset. No symptoms or risks identified at this time. Initial Sepsis Screen: Does the patient meet any 2 criteria? Temp <36.0*C (96.8*F)) or > 38.3*C (100.9*F). No. Patient's initial sepsis screen is negative. Does the patient have a suspected source of infection? No. Patient's initial sepsis screen is negative. Risk Assessment: Do you want to hurt yourself or someone else? Patient reports no desire to harm self or others. Onset of symptoms was March 27, 2024. 19:26 Method Of Arrival: Wheelchair cm10 19:26 Acuity: SHELDON 3 cm10 Triage Assessment: 19:28 General: Appears in no apparent distress. comfortable, Behavior is calm, cooperative. cm10 Neuro: No deficits noted. Level of Consciousness is awake, alert, obeys commands, Oriented to person, place, time, situation, Appropriate for age. Respiratory: No deficits noted. Airway is patent Respiratory effort is even, unlabored, Respiratory pattern is regular, symmetrical. Historical: - Allergies: 19:28 Cephalexin; cm10 19:28 Dilantin; cm10 19:28 Latex; cm10 19:28 Phenytoin; cm10 - PMHx: 19:28 a fib; Hypertensive disorder; Dementia; Congestive heart failure; Seizure; cm10 - PSHx: 19:28 knee; pacemaker; cm10 - Immunization history:: Adult Immunizations up to date. - Infectious Disease History:: Denies. - Social history:: Smoking status: Patient denies any tobacco usage or history of. Screenin:40 [facility] ED Fall Risk Assessment (Adult) History of falling in the last 3 months, rg5 including since admission No falls in past 3 months (0 pts) Confusion or Disorientation No (0 pts) Intoxicated or Sedated No (0 pts) Impaired Gait Yes (1 pt) Mobility Assist Device Used Yes (1 pt) Altered Elimination No (0 pt) Score/Fall Risk Level 0 - 2 = Low Risk Oriented to surroundings, Maintained a safe environment, Educated pt \T\ family on fall prevention, incl call for assistance when getting out of bed, Assessed \T\ reinforced patient's understanding of fall precautions, Hourly rounding (assess needs \T\ fall precautionary measures) done. Abuse screen: Denies threats or abuse. Nutritional screening: No deficits noted. Tuberculosis screening: No symptoms or risk factors identified. Primary Survey: 20:58 NO uncontrolled hemorrhage observed. Breathing/Chest: Respiratory effort: spontaneous, rg5 Breath sounds: clear, Respiratory pattern: regular, Chest inspection: symmetrical rise and fall of the chest. Circulation: Pulses: palpable right radial artery and left radial artery. Skin temperature: warm. Disability Client is alert. Exposure/Environment: There is no evidence of uncontrolled external bleeding. Assessment: 19:40 General: Appears in no apparent distress. Behavior is calm, cooperative, appropriate rg5 for age. 19:40 Pain: Complains of pain in forehead Pain does not radiate. Pain currently is 5 out of rg5 10 on a pain scale. Quality of pain is described as aching. 19:40 Neuro: Level of Consciousness is awake, alert, confused, Oriented to person, place, rg5 time. Cardiovascular: Denies chest pain, Capillary refill < 3 seconds Patient's skin is warm and dry. Rhythm is regular. GI: No signs and/or symptoms were reported involving the gastrointestinal system. : No signs and/or symptoms were reported regarding the genitourinary system. EENT:. Derm: Skin is intact, Skin is dry. Musculoskeletal: Range of motion: intact in all extremities. Vital Signs: 19:26 BP 144 / 70; Pulse 62; Resp 16; Temp 95.8(IR); Pulse Ox 97% on R/A; Weight 68.49 kg; cm10 Height 4 ft. 11 in. ; Pain 0/10; 19:40 BP 138 / 73; Pulse 69; Resp 17; Temp 98; Pulse Ox 100% on R/A; Pain 5/10; rg5 19:26 Body Mass Index 30.50 (68.49 kg, 149.86 cm) cm10 19:26 Pain Scale: Adult cm10 19:40 Pain Scale: Adult rg5 Jud Coma Score: 19:40 Eye Response: spontaneous(4). Motor Response: obeys commands(6). Verbal Response: rg5 oriented(5). Total: 15. Trauma Score (Adult): 19:40 Eye Response: spontaneous(1); Verbal Response: oriented(1); Motor Response: obeys rg5 commands(2); Systolic BP: > 89 mm Hg(4); Respiratory Rate: 10 to 29 per min(4); [place] Score: 15; Trauma Score: 12 ED Course: 19:09 Patient arrived in ED. mr 19:12 [facility] kb 19:12 Joey Seth MD is Attending Physician. kb 19:28 Triage completed. cm10 19:29 Arm band placed on Patient placed in an exam room, on a stretcher. cm10 19:40 Patient has correct armband on for positive identification. Call light in reach. Adult rg5 w/ patient. 19:40 No provider procedures requiring assistance completed. Patient did not have IV access rg5 during this emergency room visit. 19:57 CT Head C Spine In Process Unspecified. EDMS 19:57 CT Facial Bones W/O Con In Process Unspecified. EDMS 20:00 Awaiting radiology results. rg5 20:13 Jose Alberto Strong, RN is Primary Nurse. rg5 20:30 Provided Education on: post er care. rg5 Administered Medications: No medications were administered Medication: 19:40 VIS not applicable for this client. rg5 Outcome: 20:30 Discharge ordered by . kb 21:00 Discharged to home via wheelchair, rg5 21:00 Condition: stable 21:00 Discharge instructions given to patient, family, Instructed on discharge instructions, 21:01 Patient left the ED. rg5 Signatures: Dispatcher [employer] EDPA Hannah Morse FNP-C PROCUREMENT PROFESSIONAL-Haylee Soto, Reg Reg Betsy Singh, RN RN cm10 Jose Alberto Strong, TITO RN rg5 Corrections: (The following items were deleted from the chart) 19: 19:26 Acuity: SHELDON 4 cm10 cm10 03/28 05:18 05:17 Awaiting radiology results. rg5 rg5
--- NOTE | 2024-03-27 20:31 | EDPHYS ---
Physician Documentation [facility] Name: Larissa Wharton Age: 88 yrs Sex: Female : 1935 Arrival Date: 03/27/2024 Time: 19:07 Bed 13 Private MD: ED Physician Joey Seth HPI: 03/27 21:06 This 88 yrs old Female presents to ER via Wheelchair with complaints of Fall Injury, kb Head Injury-Adult. 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 States she was eating, dropped her fork and when she leaned over to pick it up she fell out of her chair and hit her head. Denies any other injuries. Unknown loc, but pt remembers all events so she doesn't think she lost consciousness. . Historical: - Allergies: 19:28 Cephalexin; cm10 19:28 Dilantin; cm10 19:28 Latex; cm10 19:28 Phenytoin; cm10 - PMHx: 19:28 a fib; Hypertensive disorder; Dementia; Congestive heart failure; Seizure; cm10 - PSHx: 19:28 knee; pacemaker; cm10 - Immunization history:: Adult Immunizations up to date. - Infectious Disease History:: Denies. - Social history:: Smoking status: Patient denies any tobacco usage or history of. ROS: 21:05 Constitutional: As per HPI kb Exam: 21:05 Constitutional: This is a well developed, well nourished patient who is awake, alert, kb and in no acute distress. Eyes: Pupils equal round and reactive to light, extra-ocular motions intact. Lids and lashes normal. Conjunctiva and sclera are non-icteric and not injected. Cornea within normal limits. Periorbital areas with no swelling, redness, or edema. ENT: Moist Mucous membranes Cardiovascular: Regular rate Respiratory: Respirations even and unlabored. No increased work of breathing. Talking in full sentences Abdomen/GI: Soft, non-tender. No distention Skin: Warm, dry with normal turgor. Normal color. MS/ Extremity: Pulses equal, no cyanosis. Neurovascular intact. Full, normal range of motion. Neuro: Awake and alert, GCS 15, oriented to person, place, time, and situation. Moves all extremities. Normal gait. 21:05 Head/face: Noted is no obvious of injury or deformity except hematoma, that is moderate, of the right side of forehead, Vital Signs: 19:26 BP 144 / 70; Pulse 62; Resp 16; Temp 95.8(IR); Pulse Ox 97% on R/A; Weight 68.49 kg; cm10 Height 4 ft. 11 in. ; Pain 0/10; 19:40 BP 138 / 73; Pulse 69; Resp 17; Temp 98; Pulse Ox 100% on R/A; Pain 5/10; rg5 19:26 Body Mass Index 30.50 (68.49 kg, 149.86 cm) cm10 19:26 Pain Scale: Adult cm10 19:40 Pain Scale: Adult rg5 Jud Coma Score: 19:40 Eye Response: spontaneous(4). Motor Response: obeys commands(6). Verbal Response: rg5 oriented(5). Total: 15. Trauma Score (Adult): 19:40 Eye Response: spontaneous(1); Verbal Response: oriented(1); Motor Response: obeys rg5 commands(2); Systolic BP: > 89 mm Hg(4); Respiratory Rate: 10 to 29 per min(4); Jud Score: 15; Trauma Score: 12 MDM: 19:12 Patient medically screened. kb 21:05 Differential diagnosis: abrasion, closed head injury, contusion, concussion, ICH, kb hematoma. Data reviewed: vital signs, nurses notes. Historians other than the Patient: Daughter/Son: daughter. Counseling: I had a detailed discussion with the patient and/or guardian regarding the historical points, exam findings, and any diagnostic results supporting the discharge/admit diagnosis, radiology results, the need for outpatient follow up, a family practitioner, to return to the emergency department if symptoms worsen or persist or if there are any questions or concerns that arise at home. 03/27 19: Order name: CT Head C Spine; Complete Time: 20:14 kb 03/27 19: Order name: CT Facial Bones W/O Con; Complete Time: 20:14 kb Administered Medications: No medications were administered Disposition Summary: 03/27/24 20:30 Discharge Ordered Notes: Location: Home kb Condition: Stable kb Diagnosis - Unspecified injury of head, initial encounter kb - Hematoma of right side of forehead kb Followup: kb - With: Emergency Department - When: As needed - Reason: Worsening of condition Followup: kb - With: Private Physician - When: 2 - 3 days - Reason: Recheck today's complaints, Continuance of care, Re-evaluation by your physician Discharge Instructions: - Discharge Summary Sheet kb - Hematoma, [id number] kb - Head Injury, Adult, [id number] kb Forms: - Medication Reconciliation Form kb - Antibiotic Education kb - Prescription Opioid Use kb - Patient Portal Instructions kb - Leadership Thank You Letter kb Signatures: Dispatcher [employer] EDMS Hannah Morse, ELECTRIC DEICER INSPECTOR-C ETHAN-Betsy Spaulding, RN RN cm10 Corrections: (The following items were deleted from the chart) 19:22 19:22 Head C Spine MPR Wo Con+CT.RAD.BRZ ordered. EDMS EDMS 19:22 19:22 Facial Bones W/ MPR+CT.RAD.BRZ ordered. EDMS EDMS
[2024-03-27 21:06] VITALS: BP 138/73; TEMP 98; O2SAT 100
== END 2024-03-27 21:01 | disposition home or self-care (01) ==
LOC: ER 19:07
DX: S00.83XA Contusion of other part of head, initial encounter (principal); W07.XXXA Fall from chair, initial encounter; F03.90 Unspecified dementia, unspecified severity, without behavioral disturbance, psychotic disturbance, mood disturbance, and anxiety; Z95.0 Presence of cardiac pacemaker
CPT/HCPCS: 70450; 70486; 72125; 76377; 99283

== ENCOUNTER 2024-05-24 22:55 | Emergency (ER) | payer OTHER ==
--- NOTE | 2024-05-25 01:07 | EDPHYS ---
Physician Documentation [facility] Name: Larissa Wharton Age: 88 yrs Sex: Female : 1935 Arrival Date: 05/24/2024 Time: 22:55 Bed 16 Private MD: ED Physician Keith Mcwilliams HPI: 05/24 23:03 This 88 yrs old Female presents to ER via Unassigned with complaints of Fall Injury. rt 23:03 Patient presents to the ED for mechanical fall. Patient states that she tried to step rt on a spider when she lost her balance falling onto her right leg. Reports of pain to her right hip, right knee. Patient denies loss of consciousness and states that she did not hit her head. Denies other acute complaints, symptoms are moderate in severity, no other aggravating or elevating factors.. Historical: - Allergies: 23:16 Cephalexin; kj2 23:16 Dilantin; kj2 23:16 Latex; kj2 23:16 Phenytoin; kj2 - PMHx: 23:20 a fib; Congestive heart failure; Dementia; Hypertensive disorder; Seizure; kj2 - PSHx: 23:20 knee; pacemaker; kj2 - Code Status:: DNAR. - Immunization history: Last tetanus immunization: unknown. - Infectious Disease History:: Denies. - Family history:: not pertinent. - Social history:: Smoking status: Patient denies any tobacco usage or history of. ROS: 23:03 Constitutional: Negative for fever, chills, and weight loss, Cardiovascular: Negative rt for chest pain, palpitations, and edema, Respiratory: Negative for shortness of breath, cough, wheezing, and pleuritic chest pain, Abdomen/GI: Negative for abdominal pain, nausea, vomiting, diarrhea, and constipation, Skin: Negative for injury, rash, and discoloration, Neuro: Negative for headache, weakness, numbness, tingling, and seizure, 23:03 MS/extremity: Positive for injury or acute deformity, pain, Exam: 23:03 Constitutional: This is a well developed, well nourished patient who is awake, alert, rt and in no acute distress. Chest/axilla: Normal chest wall appearance and motion. Nontender with no deformity. No lesions are appreciated. Cardiovascular: Regular rate and rhythm with a normal S1 and S2. No gallops, murmurs, or rubs. Normal PMI, no JVD. No pulse deficits. Respiratory: Lungs have equal breath sounds bilaterally, clear to auscultation and percussion. No rales, rhonchi or wheezes noted. No increased work of breathing, no retractions or nasal flaring. Abdomen/GI: Soft, non-tender, with normal bowel sounds. No distension or tympany. No guarding or rebound. No evidence of tenderness throughout. Skin: Warm, dry with normal turgor. Normal color with no rashes, no lesions, and no evidence of cellulitis. Neuro: Awake and alert, GCS 15, oriented to person, place, time, and situation. Cranial nerves II-XII grossly intact. Motor strength 5/5 in all extremities. Sensory grossly intact. Cerebellar exam normal. Normal gait. 23:03 Musculoskeletal/extremity: Right lower extremity is outwardly rotated, foreshortened, tenderness to the right knee without deformity. Tenderness to the right hip. Pulses, motor, sensation intact. Vital Signs: 22:55 BP 145 / 75; Pulse 61; Resp 18; Temp 98; Pulse Ox 100% ; kj2 05/25 02:10 BP 134 / 93; Pulse 60; Resp 18; Pulse Ox 100% on R/A; kj2 03:03 BP 108 / 58; Pulse 63; Resp 16; Pulse Ox 100% on R/A; Pain 0/10; rg5 03:03 Pain Scale: Adult rg5 Jud Coma Score: 03:06 Eye Response: spontaneous(4). Motor Response: obeys commands(6). Verbal Response: rg5 oriented(5). Total: 15. MDM: 05/24 22:56 Patient medically screened. rt 05/25 01:44 Differential diagnosis: Fracture, contusion. Data reviewed: vital signs, nurses notes, rt radiologic studies. Independent interpretation of the following test(s) in the Emergency Department X-Ray: My interpretation is Periprosthetic fracture syndrome interpretation of x-ray images. Care significantly affected by the following chronic conditions: Congestive Heart Failure. Counseling: I had a detailed discussion with the patient and/or guardian regarding the historical points, exam findings, and any diagnostic results supporting the discharge/admit diagnosis, radiology results, the need to transfer to another facility. 05/24 22:57 Order name: Hip Right 2 View XRAY rt 05/24 23:40 Order name: Knee Right 2 View EDMS 05/25 01:15 Order name: Knee Immobilizer; Complete Time: 02:05 rt Administered Medications: No medications were administered Disposition Summary: 05/25/24 01:06 Transfer Ordered Notes: Reason: Higher level of care rt Condition: Stable rt Problem: new rt Symptoms: are unchanged rt Transfer Location: [facility](05/25/24 01:13) rv1 Accepting Physician: (05/25/24 03:06) rg5 Diagnosis - Periprosthetic fracture of right distal femur rt Forms: - Medication Reconciliation Form rt - SBAR form rt Signatures: Dispatcher [employer] EDMS Keith Mcwilliams MD MD rt Felicitas Mejia rv1 Jose Alberto Strong RN RN rg5 Mary Marques RN RN kj2 Corrections: (The following items were deleted from the chart) 05/24 22:57 22:57 Hip Right 2 View+RAD.RAD.BRZ ordered. EDMS EDMS 23:40 22:57 Knee Right 3 View+RAD.RAD.BRZ ordered. EDMS EDMS 05/25 01:13 01:06 rt rv1 01:13 01:06 [facility] rt rv1 03:06 01:13 rv1 rg5
--- NOTE | 2024-05-25 01:07 | ER ---
Nurse's Notes [facility] Name: Larissa Wharton Age: 88 yrs Sex: Female : 1935 Arrival Date: 05/24/2024 Time: 22:55 Bed 16 Private MD: Diagnosis: Periprosthetic fracture of right distal femur Presentation: 05/24 22:55 Chief complaint: EMS states: PATIENT TRIPPED AND FELL HURTING HER RIGHT SIDE WHEN kj2 TRYING TO STEP ON A SPIDER. Care prior to arrival: None. Mechanism of Injury: Fall from standing position. Trauma event details: Injury occurred: May 24, 2024 Injury occurred at: 22:00. 22:55 Acuity: SHELDON 3 kj2 22:55 Method Of Arrival: EMS: [facility] kj2 23:08 Coronavirus screen: At this time, the client does not indicate any symptoms associated kj2 with coronavirus-19. Ebola Screen: No symptoms or risks identified at this time. Initial Sepsis Screen: Does the patient meet any 2 criteria? No. Patient's initial sepsis screen is negative. Does the patient have a suspected source of infection?. Risk Assessment: Do you want to hurt yourself or someone else? Patient reports no desire to harm self or others. Onset of symptoms. Triage Assessment: 22:55 General: Appears in no apparent distress. Behavior is calm. Pain: Complains of pain in kj2 RIGHT KNEE, RIGHT HIP Pain currently is 8 out of 10 on a pain scale. Neuro: Level of Consciousness is awake, alert, Oriented to person, place. Cardiovascular: Patient's skin is warm and dry. Respiratory: Airway is patent Respiratory effort is even, unlabored. GI: No signs and/or symptoms were reported involving the gastrointestinal system. : No signs and/or symptoms were reported regarding the genitourinary system. Historical: - Allergies: 23:16 Cephalexin; kj2 23:16 Dilantin; kj2 23:16 Latex; kj2 23:16 Phenytoin; kj2 - PMHx: 23:20 a fib; Congestive heart failure; Dementia; Hypertensive disorder; Seizure; kj2 - PSHx: 23:20 knee; pacemaker; kj2 - Code Status:: DNAR. - Immunization history: Last tetanus immunization: unknown. - Infectious Disease History:: Denies. - Family history:: not pertinent. - Social history:: Smoking status: Patient denies any tobacco usage or history of. Screenin:13 [facility] ED Fall Risk Assessment (Adult) History of falling in the last 3 months, kj2 including since admission Yes- single mechanical fall (1 pt) Confusion or Disorientation Yes (5 pts) Intoxicated or Sedated No (0 pts) Impaired Gait Yes (1 pt) Mobility Assist Device Used Yes (1 pt) Altered Elimination Yes (1 pt) Score/Fall Risk Level 3 or more points = High Risk Oriented to surroundings, Maintained a safe environment, Educated pt \T\ family on fall prevention, incl call for assistance when getting out of bed, Hourly rounding (assess needs \T\ fall precautionary measures) done. Abuse screen: Denies threats or abuse. Denies injuries from another. Nutritional screening: No deficits noted. Tuberculosis screening: No symptoms or risk factors identified. Primary Survey: 23:19 Breathing/Chest: Spontaneous respiratory effort, equal unlabored respirations, breath kj2 sounds clear bilaterally, regular pattern, symmetrical chest rise and fall. Respiratory effort: unlabored, Breath sounds: clear, Respiratory pattern: regular, Chest inspection: symmetrical rise and fall of the chest. Circulation: No external hemorrhage present. Regular and strong central pulse, skin warm/dry/normal color. Disability. Reassessment Breathing: Spontaneous respiratory effort, equal unlabored respirations, breath sounds clear bilaterally, regular pattern with symmetrical chest rise and fall. Circulation: No external hemorrhage noted. Regular and strong central pulse, skin warm/dry/normal color. Disability:. Assessment: 23:11 General: SEE TRIAGE ASSESSMENT. kj2 05/25 00:15 Reassessment: Patient appears in no apparent distress at this time. Patient and/or kj2 family updated on plan of care and expected duration. Pain level reassessed. Patient is alert, oriented x 3, equal unlabored respirations, skin warm/dry/pink. 00:58 Reassessment: PATIENT REFUSED VITAL SIGNS. kj2 02:05 Reassessment: Patient appears in no apparent distress at this time. Patient and/or kj2 family updated on plan of care and expected duration. Pain level reassessed. Patient is alert, oriented x 3, equal unlabored respirations, skin warm/dry/pink. 03:04 General: Appears in no apparent distress. Behavior is calm, cooperative. Pain: Denies rg5 pain. Neuro: Level of Consciousness is awake. Cardiovascular: Denies chest pain, shortness of breath. Respiratory: Airway is patent Trachea midline Respiratory effort is even, unlabored, Respiratory pattern is regular, symmetrical. Vital Signs: 05/24 22:55 BP 145 / 75; Pulse 61; Resp 18; Temp 98; Pulse Ox 100% ; kj2 05/25 02:10 BP 134 / 93; Pulse 60; Resp 18; Pulse Ox 100% on R/A; kj2 03:03 BP 108 / 58; Pulse 63; Resp 16; Pulse Ox 100% on R/A; Pain 0/10; rg5 03:03 Pain Scale: Adult rg5 Jud Coma Score: 03:06 Eye Response: spontaneous(4). Motor Response: obeys commands(6). Verbal Response: rg5 oriented(5). Total: 15. ED Course: 05/24 22:56 Patient arrived in ED. lg3 22:56 Keith Mcwilliams MD is Attending Physician. rt 23:02 Mary Marques RN is Primary Nurse. kj2 23:06 Triage completed. kj2 23:11 Arm band placed on right wrist. Patient placed in an exam room, on a stretcher. kj2 23:18 Patient has correct armband on for positive identification. Bed in low position. Call kj2 light in reach. Side rails up X 1. Provided Education on: CALL LIGHT, FALL PRECAUTIONS. 23:40 Knee Right 2 View In Process Unspecified. EDMS 23:42 Hip Right 2 View XRAY In Process Unspecified. EDMS 05/25 01:28 No provider procedures requiring assistance completed. kj2 03:06 Patient did not have IV access during this emergency room visit. rg5 03:06 Patient maintains SpO2 saturation greater than 95% on room air. rg5 Administered Medications: No medications were administered Medication: 05/24 23:18 VIS not applicable for this client. kj2 Outcome: 05/25 01:06 ER care complete, transfer ordered by . rt 03:05 Transferred by ground EMS to [facility], rg5 03:05 Condition: stable 03:05 Discharge instructions given to EMS, 03:06 Patient left the ED. rg5 Signatures: Dispatcher [employer] EDMS Anne Chacko RN RN lg3 Keith Mcwilliams MD MD rt Jose Alberto Strong RN RN rg5 Mary Marques, RN RN kj2
[2024-05-25 03:29] VITALS: TEMP 98; O2SAT 100
[2024-05-25 03:33] VITALS: BP 108/58
--- NOTE | 2024-05-25 06:00 | RAD REPORT ---
Clinical Indication: Bed Name: 16; PAIN Comparison: None FINDINGS: 2 views of the right knee demonstrate total right knee arthroplasty. An oblique fracture is noted in the distal femoral metaphysis. The fracture line extends down into the femoral component of the arthroplasty. There is apex anterior angulation and approximately one half shaft width medial displac ement. Associated soft tissue swelling is noted. The proximal tibia and fibula appear intact. Extensive vascular calcifications are noted in the SFA and popliteal arteries. If there is further concern, recommend follow-up radiographs or MRI for complete assessment. IMPRESSION: 1. Status post total right knee arthroplasty. 2. Oblique distal femoral fracture as described above. Electronically signed by: Nate Edgar MD 05/25/2024 12:23 AM CDT RP Due to temporary technical issues with the PACS/Webtab reporting system, reports are being georg[place] d by the in-house radiologist without review as a courtesy to ensure prompt reporting the interpreting radiologist is fully responsible for the content of the report. Transcribed Date/Time: 05/25/2024 6:45 AM
--- NOTE | 2024-05-25 06:00 | RAD REPORT ---
EXAM: XR Right Hip With Pelvis When Performed, 2 or 3 Views CLINICAL HISTORY: Pain. TECHNIQUE: Two or three views of the right hip with pelvis when performed. COMPARISON: No relevant prior studies available. FINDINGS: Bones/joints: Unremarkable. No acute fracture. No dislocation. Soft tissues: Unremarkable. Vasculature: Atherosclerotic disease. IMPRESSION: No acute injury. Electronically signed by: Christa Nails MD 05/25/2024 12:53 AM CDT RP Due to temporary technical issues with the PACS/[employer] reporting system, reports are being georges d by the in-house radiologist without review as a courtesy to ensure prompt reporting the interpreting radiologist is fully responsible for the content of the report. Transcribed Date/Time: 05/25/2024 6:46 AM
== END 2024-05-25 03:06 | disposition short-term general hospital (02) ==
LOC: ER 22:55
DX: M97.01XA Periprosthetic fracture around internal prosthetic right hip joint, initial encounter (principal); W18.30XA Fall on same level, unspecified, initial encounter; I10 Essential (primary) hypertension; I50.9 Heart failure, unspecified; Z95.0 Presence of cardiac pacemaker
CPT/HCPCS: 82947; 99285